=== PATIENT | female | born 1945 | race Caucasian/White ===

== ENCOUNTER 2017-03-13 15:46 | Emergency (ER) | payer MEDICARE, OTHER ==
[2017-03-13 16:00] VITALS: BP 121/51
[2017-03-13] MEDS ORDERED: TETANUS/DIPHTHERIA TOX-ADULT 0.5 ML SYR (>=7YO) IM ONE (16:14)
--- NOTE | 2017-03-13 16:14 | ER Document Report ---
ED Fall - General Mode of Arrival: Ambulatory Information source: Patient TRAVEL OUTSIDE OF THE [place] IN LAST 30 DAYS: No <CALISTA BULLOCK - Last Filed: 03/13/17 16:20> <KEIRY THOMPSON - Last Filed: 03/13/17 17:02> - General Chief Complaint: Arm Injury Stated Complaint: FALL/LEFT ARM AND LEG PAIN Notes: Patient is a 72 year old female presenting to the ED for injuries related to a fall. Patient states she was going to help her daughter who fell outside when she ran into the door frame and fell. Patient hurt her left wrist and her right forearm. Patient did not hit her head. Patient is on Coumadin and lasix. Patient has a history of COPD, CAD, CHF, and a defibrillator. (CALISTA BULLOCK) - Related data Allergies/Adverse Reactions: bee pollen [Bee Pollen] Allergy (Unknown, Verified 01/14/13 20:15) venom-wasp [Wasp Venom] Allergy (Verified 01/14/13 20:15) Past Medical History - General Information source: Patient - Social History Smoking Status: Current Every Day Smoker Family History: None Patient has suicidal ideation: No Patient has homicidal ideation: No - Past Medical History Cardiac Medical History: Reports: Hx Atrial Fibrillation, Hx Congestive Heart Failure, Hx Coronary Artery Disease, Hx Hypercholesterolemia, Hx Hypertension Pulmonary Medical History: Reports: Hx Bronchitis, Hx COPD - stage 3, Hx Pneumonia Malignancy Medical History: Reports: Hx Breast Cancer - right GI Medical History: Reports: Hx Ulcer Musculoskeltal Medical History: Reports Hx Arthritis, Reports Hx Musculoskeletal Deformity, Reports Hx Musculoskeletal Trauma Psychiatric Medical History: Reports: Hx Anxiety, Hx Depression Traumatic Medical History: Reports: Hx Fractures Past Surgical History: Reports: Hx Breast Surgery - lumpectomy, needle biopsy - Immunizations Immunizations up to date: Yes Hx Diphtheria, Pertussis, Tetanus Vaccination: Yes <CALISTA BULLOCK - Last Filed: 03/13/17 16:20> Review of Systems - Review of Systems Constitutional: No symptoms reported EENT: No symptoms reported Cardiovascular: No symptoms reported Respiratory: No symptoms reported Gastrointestinal: No symptoms reported Genitourinary: No symptoms reported Female Genitourinary: No symptoms reported Musculoskeletal: No symptoms reported Skin: See HPI Hematologic/Lymphatic: No symptoms reported Neurological/Psychological: No symptoms reported -: Yes All other systems reviewed and negative <CALISTA BULLOCK - Last Filed: 03/13/17 16:20> Physical Exam <CALISTA BULLOCK - Last Filed: 03/13/17 16:20> <KEIRY THOMPSON - Last Filed: 03/13/17 17:02> - Vital signs Vitals: Temp Pulse Resp BP Pulse Ox 98.2 F 73 16 121/51 L 96 03/13/17 15:52 03/13/17 15:52 03/13/17 15:52 03/13/17 15:52 03/13/17 15:52 - Notes Notes: GENERAL: Alert, interacts well. No acute distress. HEAD: Normocephalic, atraumatic. EYES: Pupils equal, round, and reactive to light. Extraocular movements intact. ENT: Oral mucosa moist, tongue midline. NECK: Nontender. full range of motion. Supple. Trachea midline. LUNGS: Decreased breath sounds bilaterally, no wheezes, rales, or rhonchi. No respiratory distress. HEART: Regular rate and rhythm. No murmurs, gallops, or rubs. ABDOMEN: Soft, non-tender. Non-distended. Bowel sounds present in all 4 quadrants. EXTREMITIES: Small hematoma to the right volar forearm. Patient is to palpation with ecchymosis and abrasions of the left wrist. Neuro is intact distally. NEUROLOGICAL: Alert and oriented x3. Normal speech. PSYCH: Normal affect, normal mood. SKIN: Warm, dry, normal turgor. No rashes or lesions noted. (CALISTA BULLOCK) Course <CALISTA BULLOCK - Last Filed: 03/13/17 16:20> - Diagnostic Test Radiology reviewed: Image reviewed, Reports reviewed <KEIRY THOMPSON - Last Filed: 03/13/17 17:02> - Re-evaluation Re-evalutation: 03/13/17 16:51 XRays discussed with patient as well as wound/injury care. She voices understanding. (KEIRY THOMPSON) - Vital Signs Vital signs: Temp Pulse Resp BP Pulse Ox 98.2 F 73 16 121/51 L 96 03/13/17 15:52 03/13/17 15:52 03/13/17 15:52 03/13/17 15:52 03/13/17 15:52 - Diagnostic Test Radiology results interpreted by me: 03/13/17 16:53 STS but no fracture. (KEIRY THOMPSON) Discharge <CALISTA BULLOCK - Last Filed: 03/13/17 16:20> <KEIRY THOMPSON - Last Filed: 03/13/17 17:02> - Discharge Clinical Impression: Sprain of left wrist, Abrasion of forearm Condition: Good Disposition: HOME, SELF-CARE Instructions: Wrist Sprain ([facility]) Additional Instructions: Please return for worsening or concern. Use the splint as directed. Ice and elevate areas of pain and swelling. Follow-up with your primary care physician Forms: Smoking Cessation Education Scribe Documentation - Scribe Written by Zach:: Zach Hull, 03/13/2017 16:20 acting as scribe for :: [place] <CALISTA BULLOCK - Last Filed: 03/13/17 16:20>
--- NOTE | 2017-03-13 16:51 | RADIOLOGY REPORT (SQ) ---
EXAM DESCRIPTION: WRIST LEFT 3 VIEWS COMPLETED DATE/TIME: 03/13/2017 4:43 pm REASON FOR STUDY: Trauma with pain COMPARISON: None. NUMBER OF VIEWS: Three views. TECHNIQUE: AP, lateral, and oblique radiographic images acquired of the left wrist. LIMITATIONS: None. FINDINGS: MINERALIZATION: Osteopenic BONES: No acute fracture or dislocation. No worrisome bone lesions. Normal alignment. SOFT TISSUES: Dorsal soft tissue swelling. No foreign body. OTHER: No other significant finding. IMPRESSION: Soft tissue swelling. No acute fracture TECHNICAL DOCUMENTATION: JOB ID: [id number]- All Rights Reserved
[2017-03-13] MEDS ORDERED: OXYCODONE-ACETAMINOPHEN 5-325 MG TABLET PO ONE (17:03)
== END 2017-03-13 17:34 | disposition home or self-care (01) ==
LOC: ER 15:46
DX: S63.502A Unspecified sprain of left wrist, initial encounter (principal); S50.812A Abrasion of left forearm, initial encounter; M79.602 Pain in left arm; M79.605 Pain in left leg; W19.XXXA Unspecified fall, initial encounter; F17.200 Nicotine dependence, unspecified, uncomplicated
CPT/HCPCS: 99283; 90472; 73110; 90714; L3984; 90471

== ENCOUNTER 2017-06-10 16:45 | Inpatient (IN) | payer MEDICARE, OTHER ==
--- NOTE | 2017-06-10 16:59 | ER Document Report ---
ED Respiratory Problem - General Chief Complaint: Shortness Of Breath Stated Complaint: DIFFICULTY BREATHING Time Seen by Provider: 06/10/17 16:49 Mode of Arrival: Medic Information source: Patient, Relative, Emergency Med Personnel TRAVEL OUTSIDE OF THE [place] IN LAST 30 DAYS: No - HPI Patient complains to provider of: COPD - pt with h/o COPD on home 02 (2L) who sees Dr. whitt with c/o wheezing and productive cough for the past several days. Pt. continues to smoke. She denies CP, N,V. )2 sat at time of slat pickler was 80%. She was givern nebs times 2 and solumedrol by EMS - Related Data Allergies/Adverse Reactions: bee pollen [Bee Pollen] Allergy (Unknown, Verified 01/14/13 20:15) venom-wasp [Wasp Venom] Allergy (Verified 01/14/13 20:15) Past Medical History - General Information source: Patient, Relative, Emergency Med Personnel - Social History Smoking Status: Current Every Day Smoker Cigarette use (# per day): Yes Chew tobacco use (# tins/day): No Smoking Education Provided: Yes Family History: None - Past Medical History Cardiac Medical History: Reports: Hx Atrial Fibrillation, Hx Congestive Heart Failure, Hx Coronary Artery Disease, Hx Hypercholesterolemia, Hx Hypertension Pulmonary Medical History: Reports: Hx Bronchitis, Hx COPD - stage 3, Hx Pneumonia Renal/ Medical History: Denies: Hx Peritoneal Dialysis Malignancy Medical History: Reports: Hx Breast Cancer - right GI Medical History: Reports: Hx Ulcer Musculoskeltal Medical History: Reports Hx Arthritis, Reports Hx Musculoskeletal Deformity, Reports Hx Musculoskeletal Trauma Psychiatric Medical History: Reports: Hx Anxiety, Hx Depression Traumatic Medical History: Reports: Hx Fractures Past Surgical History: Reports: Hx Breast Surgery - lumpectomy, needle biopsy - Immunizations Immunizations up to date: Yes Hx Diphtheria, Pertussis, Tetanus Vaccination: Yes Review of Systems - Review of Systems Constitutional: No symptoms reported Cardiovascular: No symptoms reported Respiratory: See HPI, Cough, Short of breath, Sputum Gastrointestinal: No symptoms reported Musculoskeletal: No symptoms reported Neurological/Psychological: No symptoms reported -: Yes All other systems reviewed and negative Physical Exam - Vital signs Vitals: Temp 98.4 F 06/10/17 16:53 - General General appearance: Appears well In distress: Mild - mild resp. distress - Respiratory Respiratory status: Respiratory distress - mild Chest status: Nontender Breath sounds: Wheezing - bilateral end-expiratory Chest palpation: Normal - Cardiovascular Rhythm: Regular Heart sounds: Normal auscultation - Abdominal Inspection: Normal Tenderness: Nontender - Extremities General upper extremity: Normal inspection General lower extremity: Normal inspection Course - Re-evaluation Re-evalutation: 06/10/17 19:10 Pt. feels better after nebs and steroids -- still with some wheezing L>R -- will call Dr. Hinojosa (on-call for Dr. Quinn) for admission - Vital Signs Vital signs: Temp Pulse Resp BP Pulse Ox 98.4 F 17 98/57 L 97 06/10/17 16:53 06/10/17 17:01 06/10/17 17:01 06/10/17 18:08 - Laboratory Result Diagrams: 06/10/17 17:17 06/10/17 17:17 Laboratory results interpreted by me: 06/10/17 06/10/17 06/10/17 17:17 17:17 17:17 RBC 3.57 L Hgb 10.7 L Hct 33.7 L MCHC 31.7 L RDW 17.6 H Plt Count 132 L Carbonic Acid 2.24 H ABG pCO2 74.4 H* ABG pO2 126.9 H ABG HCO3 41.0 H ABG Total CO2 43.3 H ABG O2 Saturation 98.3 H Sodium 135.7 L Chloride 91 L Carbon Dioxide 38 H BUN 26 H Creatinine 1.28 H Est GFR ( Amer) 50 L Est GFR (Non-Af Amer) 41 L Glucose 138 H Direct Bilirubin 0.5 H Total Protein 5.8 L Albumin 2.9 L - Diagnostic Test Radiology reviewed: Reports reviewed - bilateral pleural effusions- no infiltrate - EKG Interpretation by Me Rate: Normal Rhythm: A.Fib - at fib with non-specific st-t changes but no acute change Critical Care Note - Critical Care Note Total time excluding time spent on procedures (mins): 30 Discharge - Discharge Clinical Impression: COPD (chronic obstructive pulmonary disease) Qualifiers: COPD type: COPD with acute exacerbation Qualified Code(s): J44.1 - Chronic obstructive pulmonary disease with (acute) exacerbation Condition: Stable Disposition: ADMITTED INPATIENT Admitting Provider: Ashish Unit Admitted: [facility]
[2017-06-10] MEDS ORDERED: IPRATROPIUM/ALBUTEROL 0.5-2.5 MG/3 ML AMPUL NEB ONE (17:00)
[2017-06-10 17:33] LABS: ABSOLUTE LYMPHOCYTES (AUTO) 1.3 10^3/uL (0.5-4.7); ABSOLUTE MONOCYTES (AUTO) 0.6 10^3/uL (0.1-1.4); ABSOLUTE NEUT (AUTO) 4.4 10^3/uL (1.7-8.2); ARTERIAL BLOOD BASE EXCESS 12.7 mmol/L; ARTERIAL BLOOD O2 SATURATION 98.3 % (94-98); BASOPHILS % (AUTO) 0.6 % (0-2); EOSINOPHILS % (AUTO) 0.5 % (0-6); HEMATOCRIT 33.7 % (36.0-47.0); HEMOGLOBIN 10.7 g/dL (12.0-15.5); HGB HCT DIFFERENCE -1.6; LYMPHOCYTES % (AUTO) 20.4 % (13-45); MEAN CORPUSCULAR HEMOGLOBIN 29.9 pg (27.0-33.4); MEAN CORPUSCULAR HGB CONC 31.7 g/dL (32.0-36.0); MEAN CORPUSCULAR VOLUME 94 fl (80-97); MONOCYTES % (AUTO) 9.6 % (3-13); RED BLOOD COUNT 3.57 10^6/uL (3.72-5.28); RED CELL DISTRIBUTION WIDTH 17.6 % (11.5-14.0); SEGMENTED NEUTROPHILS % (AUTO) 68.9 % (42-78); WHITE BLOOD COUNT 6.4 10^3/uL (4.0-10.5)
[2017-06-10 17:51] LABS: ALANINE AMINOTRANSFERASE 23 U/L (9-52); ALBUMIN 2.9 g/dL (3.5-5.0); ALKALINE PHOSPHATASE 100 U/L (38-126); ASPARTATE AMINO TRANSFERASE 27 U/L (14-36); BILIRUBIN,DIRECT 0.5 mg/dL (0.0-0.4); BLOOD UREA NITROGEN 26 mg/dL (7-20); CALCIUM 8.8 mg/dL (8.4-10.2); CHLORIDE 91 mmol/L (98-107); CREATINE KINASE 40 U/L (30-135); CREATININE RESULT 1.28 mg/dL (0.52-1.25); GLUCOSE 138 mg/dL (75-110); POTASSIUM 3.7 mmol/L (3.6-5.0); SODIUM 135.7 mmol/L (137-145); TOTAL PROTEIN 5.8 g/dL (6.3-8.2)
[2017-06-10 17:58] LABS: ANION GAP 7 (5-19)
[2017-06-10 18:01] LABS: CREATINE KINASE MB 2.26 ng/mL (<4.55)
[2017-06-10 18:06] LABS: CARBON DIOXIDE 38 mmol/L (22-30)
[2017-06-10 18:07] LABS: TROPONIN I 0.061 ng/mL
--- NOTE | 2017-06-10 18:19 | RADIOLOGY REPORT (SQ) ---
EXAM DESCRIPTION: CHEST PA/LAT COMPLETED DATE/TIME: 06/10/2017 6:07 pm REASON FOR STUDY: SOB/productive cough/wheeze COMPARISON: 07/30/2016. EXAM PARAMETERS: NUMBER OF VIEWS: two views TECHNIQUE: Digital Frontal and Lateral radiographic views of the chest acquired. RADIATION DOSE: NA LIMITATIONS: none FINDINGS: LUNGS AND PLEURA: Hyperinflation with chronic scarring. Small -moderate bilateral pleural effusions. MEDIASTINUM AND HILAR STRUCTURES: No masses or contour abnormalities. HEART AND VASCULAR STRUCTURES: Cardiomegaly. BONES: No acute findings. HARDWARE: Surgical clips. OTHER: No other significant finding. IMPRESSION: COPD WITH CHRONIC SCARRING. CARDIOMEGALY PRESENT WITH BILATERAL PLEURAL EFFUSIONS, POSS IBLE SUPERIMPOSED CONGESTIVE FAILURE. TECHNICAL DOCUMENTATION: JOB ID: [id number] [employer]- All Rights Reserved
[2017-06-10] MEDS ORDERED: LEVOFLOXACIN 750 MG/D5W RTU 750 MG/150 ML RTUPB IV ONE (19:09)
[2017-06-10] MEDS ORDERED: ACETAMINOPHEN 325 MG TABLET PO PRN (19:33)
[2017-06-10] MEDS ORDERED: FUROSEMIDE INJ/PF 20 MG/2 ML SDV IV ONE (20:00)
[2017-06-10] MEDS ORDERED: IPRATROPIUM/ALBUTEROL 0.5-2.5 MG/3 ML AMPUL NEB SCH (20:00)
[2017-06-10 20:18] LABS: ARTERIAL BLOOD BASE EXCESS 11.9 mmol/L; ARTERIAL BLOOD O2 SATURATION 99.1 % (94-98)
[2017-06-10] MEDS ORDERED: METHYLPREDNISOLONE INJ 125 MG/2 ML SDV IV SCH ×2 (22:00→22:43)
--- NOTE | 2017-06-10 22:16 | PDOC CONSULTATION ---
Consultation Consult Date: 06/10/17 Attending physician:: THERESE MCKEON Consult reason:: CHF History of Present Illness Admission Date/PCP: 06/10/17 19:33 Patient complains of: Shortness of breath and unresponsive state. History of Present Illness: JUNAID VILCHIS is a 72 year old female with h/o COPD on home 02 (2L) who sees Dr. whitt with c/o wheezing and productive cough for the past several days. Pt. continues to smoke. She denies CP, N,V. O2 sat at time of tile picker was 80%. She was givern nebs times 2 and solumedrol by EMS history further obtained by talking with patient's sister and and daughter. It seems patient was very lethargic and was difficult to wake up at home. Subsequent blood gases showed marked hypoxemia and also hypercarbia. Currently patient on 100% oxygen. Patient does have cough with some productive sputum. She however denied any fever or chills at this time. Patient was noted to have elevated BNP. Patient does give history of peripheral vascular disease with bilateral carotid endarterectomy. Patient denied any prior history of myocardial infarction or angina. Patient also describes some intermittent left arm weakness. Past Medical History Cardiac Medical History: Reports: Atrial Fibrillation, Congestive Heart Failure , Coronary Artery Disease, Hyperlipidema, Hypertension Pulmonary Medical History: Reports: Bronchitis, Chronic Obstructive Pulmonary Disease (COPD) - stage 3, Pneumonia Malignancy Medical History: Reports: Breast Cancer - right Musculoskeltal Medical History: Reports: Arthritis Psychiatric Medical History: Reports: Depression Social History Information Source: Patient Smoking Status: Current Every Day Smoker - Advance Directive Resuscitation Status: Full Code Surrogate healthcare decision maker:: Patient sister is currently the surrogate decision-maker Family History Family History: COPD, Hypertension Parental Family History Reviewed: Yes Children Family History Reviewed: Yes Sibling(s) Family History Reviewed.: Yes Medication/Allergy Home Medications: Aspirin [Aspirin 81 mg Chewable Tablet] 81 mg PO DAILY 01/14/13 Calcium/Magnesium/Vit D3 [Calcium 500 mg Tablet] 01/14/13 Esomeprazole Magnesium [Nexium] 40 mg PO 01/14/13 Midodrine HCl [Proamatine 5 mg Tablet] 01/14/13 Simvastatin [Zocor 40 mg Tablet] 40 mg PO 01/14/13 Tiotropium [place] [Spiriva Handihaler 18 mcg/dose (30 Dose)] 01/14/13 Warfarin Sodium [Coumadin 5 Mg Tablet] 5 mg PO 01/14/13 Cephalexin Monohydrate [Keflex 500 mg Capsule] 500 mg PO QID #40 capsule Potassium Chloride [Klor-Con 10 Meq Tablet.sa] 20 meq PO BID 3 Days tablet.sa 07/30/16 Prednisone [Deltasone 10 mg Tablet] 10 mg PO ASDIR PRN #21 tablet 07/30/16 Allergies/Adverse Reactions: bee pollen [Bee Pollen] Allergy (Unknown, Verified 01/14/13 20:15) venom-wasp [Wasp Venom] Allergy (Verified 01/14/13 20:15) Review of Systems Review of Systems: Please see history of present illness and past medical history as wall. Constitutional: No fever or chills reported. Head : No recent chronic headaches, recent head injury. Eyes: No recent eye pain, diplopia, redness, discharge, acute visual changes. Ears: No recent chronic ear pain, acute hearing loss, ear discharge. Oral cavity: No recent ulcerations, bleeding, oral cavity discomfort. Neck: No recent acute neck pain reported. Hematologic: No recent easy bruising or bleeding or hematologic malignancy reported. Lymphatic: No recent lymphatic malignancy, chronic lymphadenopathy reported yet Cardiovascular system review: See history of present illness. Intermittent pedal edema noted. Respiratory system review: Recent cough with sputum production but no hemoptysis , blood clots in the lungs reported. Moderate shortness of breath on exertion Gastrointestinal system review: Negative for any recent acute or chronic abdominal pain, hematemesis, melena, recent change in bowel habits. Genitourinary system review: No recent acute or chronic hematuria, flank pain, UTI etc. reported. Skin system review: Negative for any recent abnormal bruising, no rash, no pruritus reported. Neurologic: History of mini strokes and minor strokes but no definite seizure disorder. Recent symptoms indicative of TIA. Psychologic: No history of major psychosis or major depression reported. Musculoskeletal: Minor aches and pains reported. No acute joint swelling reported. Endocrine: No recent polyuria, polydipsia, recent heat or cold intolerance. Physical Exam Vital Signs: Temp Pulse Resp BP Pulse Ox 98.4 F 16 145/93 H 99 06/10/17 16:53 06/10/17 21:01 06/10/17 21:01 06/10/17 21:01 Exam: GENERAL: well-nourished and in no acute distress. Alert and oriented x3. Currently receiving nonrebreather mask oxygen. HEAD: Atraumatic, normocephalic. EYES: Pupils equal round and reactive to light, extraocular movements intact, sclera anicteric, conjunctiva are normal. ENT: TMs normal, nares patent, oropharynx clear without exudates. Moist mucous membranes. No oral ulcerations or bleeding gums noted NECK: supple without lymphadenopathy. Trachea is central. No cervical or axillary lymphadenopathy noted. Carotids are 2+, JVD 12 cm LUNGS: Respiration seems nonlabored, no significant accessory muscle action noted. Bilateral mild wheezing and bibasilar fine crackles are noted. CHEST: Palpation of the chest wall shows no significant chest wall tenderness. No other significant abnormalities noted. HEART: [place] [employer]CEIVING [employer], No PSH, 1/6 [place] aortic area, 1/6 barr[place] systolic murmur mitral area, no rubs, no gallops. ABDOMEN: Soft, no significant tenderness appreciated, normoactive bowel sounds. No guarding, no rebound. No rigidity noted . No masses appreciated. EXTREMITIES: Pedal pulses are 1-2+, no calf tenderness noted. No clubbing or cyanosis.1+ pedal edema noted NEUROLOGICAL: Focused neurological exam showed no significant neurologic deficit. Normal speech, no focal weakness appreciated. PSYCH: Normal mood, normal affect. Judgment and insight within normal limits. SKIN: No significant ecchymosis, rash, ulcerations or signs of pruritus noted. MUSCULOSKELETAL EXAM: No significant joint swelling noted. Results Laboratory Results: 06/10/17 20:03 Carbonic Acid 1.86 H HCO3/H2CO3 Ratio 20:1 ABG pH 7.42 ABG pCO2 61.7 H ABG pO2 165.3 H ABG HCO3 38.8 H ABG O2 Saturation 99.1 H ABG Base Excess 11.9 FiO2 50% EKG Comments: Atrial fibrillation with controlled ventricular response and minor nonspecific T -wave changes Impressions: Chest X-Ray 06/10/17 16:59 IMPRESSION: COPD WITH CHRONIC SCARRING. CARDIOMEGALY PRESENT WITH BILATERAL PLEURAL EFFUSIONS, POSSIBLE SUPERIMPOSED CONGESTIVE FAILURE. Assessment & Plan - Diagnosis (1) Acute and chronic respiratory failure ([id number]) Is this a current diagnosis for this admission?: Yes (2) COPD with exacerbation Is this a current diagnosis for this admission?: Yes (3) Congestive heart failure (CHF) Qualifiers: Congestive heart failure type: unspecified congestive heart failure type Congestive heart failure chronicity: acute on chronic Qualified Code(s): I50.9 - Heart failure, unspecified Is this a current diagnosis for this admission?: Yes (4) Tobacco abuse Is this a current diagnosis for this admission?: Yes (5) Chronic kidney disease Qualifiers: Chronic kidney disease stage: stage 3 (moderate) Qualified Code(s): N18.3 - Chronic kidney disease, stage 3 (moderate) Is this a current diagnosis for this admission?: Yes (6) Elevated troponin I level Is this a current diagnosis for this admission?: Yes (7) Atrial fibrillation Qualifiers: Atrial fibrillation type: chronic Qualified Code(s): I48.2 - Chronic atrial fibrillation Is this a current diagnosis for this admission?: Yes (8) CO2 narcosis Is this a current diagnosis for this admission?: Yes Plan: This was probably because of patient decreased responsiveness. Currently improved. - Notes Notes: Acute on chronic respiratory failure: Patient noted to have severe COPD and both hypoxemic and hypercarbic respiratory failure. Agree with oxygen supplementation. Patient may need noninvasive ventilatory support. Patient informed that it may progress that she might need artificial ventilation. Endotracheal intubation and artificial ventilation. If that happens she is agreeable to proceed with that. COPD with exacerbation: I saw your patient might I think she is in acute respiratory failure both hypoxic and hypercarbic. Patient has been advised to quit smoking. Continue with the steroids and bronchodilator therapy. Congestive heart failure: Possibly diastolic and right heart failure combined. Agree with IV Lasix. Adequate therapy of COPD would help. Chronic kidney disease: Patient seems to have stage III chronic kidney disease. Continue to monitor renal functions. Atrial fibrillation: Patient claims she was on Coumadin. Check PT with INR. PT with INR less than 2.0, could switch patient to Eliquis at 2.5 mg p.o. twice daily. Abnormal troponin I: Most likely related to respiratory distress and CHF. CO2 narcosis: This was noted on presentation. Currently improved. - Time Time Spent: 50 to 70 Minutes - CODE STATUS was discussed, patient remains full code. Surrogate decision-maker unchanged. Multiple medical problems were addressed. More than 50% of the time spent coordinating care, discussing management plans with involved caregivers. Management plans discussed with involved personnels. Medical decision making was of moderate to high complexity , patient's has multiple comorbidities. Medications reviewed and adjusted accordingly: Yes
[2017-06-10 22:32] LABS: CHOLESTEROL 71.64 mg/dL (0-200); Direct HDL 28 mg/dL (>40); TRIGLYCERIDES 56 mg/dL (<150)
[2017-06-10 22:33] LABS: PROTHROMBIN TIME 39.7 SEC (11.4-15.4)
[2017-06-10 22:34] LABS: PARTIAL THROMBOPLASTIN TIME 52.2 SEC (23.5-35.8)
--- NOTE | 2017-06-10 22:40 | RADIOLOGY REPORT (SQ) ---
EXAM DESCRIPTION: CTA CHEST COMPLETED DATE/TIME: 06/10/2017 10:17 pm REASON FOR STUDY: CP/SOB COMPARISON: None. TECHNIQUE: CT scan of the chest performed using helical scanning technique with dynamic intravenous contrast injection. Images reviewed with lung, soft tissue and bone windows. Reconstructed coronal and sagittal MPR images reviewed. Additional 3 dimensional post-processing performed to develop Maximal Intensity Projection images (CT P). All images stored on PACS. All CT scanners at this facility use dose modulation, iterative reconstruction, and/or weight based d osing when appropriate to reduce radiation dose to as low as reasonably achievable (ALARA). [facility]: Dose Right [facility]: CareDose [facility]: Dose Right [facility]: Teradose 4D [facility]: [employer] CONTRAST TYPE AND DOSE: contrast/concentration: Isovue 370.00 mg/ml; Total Contrast Delivered: 63.0 ml; Total Saline Delivered: 104.0 ml Contrast bolus optimized for the pulmonary arteries. Not diagnostic for the aorta. RENAL FUNCTION: BUN 26 creatinine 1.28. RADIATION DOSE: Up-to-date CT equipment and radiation dose reduction techniques were employed. CTDIv ol: 14.3 - 16.5 mGy. DLP: 467 mGy-cm. . LIMITATIONS: None. FINDINGS: LUNGS AND PLEURA: Chronic interstitial scarring. Moderate left pleural effusion and small right pleural effusion. AORTA AND GREAT VESSELS: No aneurysm. Contrast bolus not optimized for the aorta. HEART: No pericardial effusion. No significant coronary artery calcifications. PULMONARY ARTERIES: No emboli visualized in the main pulmonary arteries or the segmental branches. HILAR AND MEDIASTINAL STRUCTURES: No identified masses or abnormal nodes. HARDWARE: None in the chest. UPPER ABDOMEN: No significant findings. Limited exam. THYROID AND OTHER SOFT TISSUES: No masses. No adenopathy. BONES: No acute or significant finding. 3D MIPS: Confirm above findings. OTHER: No other significant finding. IMPRESSION: NORMAL CTA OF THE CHEST. NO PULMONARY EMBOLI. CHRONIC INTERSTITIAL SCARRING. MODERATE LEFT PLEURAL EFFUSION AND SMALL RIGHT PLEURAL EFFUSION. COMMENT: Quality ID # [id number]: Final reports with documentation of one or more dose reduction techniques (e.g., Automated exposure control, adjustment of the mA and/or kV according to patient size, use of iterative reconstruction technique) TECHNICAL DOCUMENTATION: JOB ID: [id number]- All Rights Reserved
[2017-06-10 22:43] LABS: DIRECT LDL 37 mg/dL (<100)
[2017-06-10] MEDS ORDERED: LEVALBUTEROL HCL NEB 1.25 MG/3 ML AMPUL NEB ONE (23:15)
--- NOTE | 2017-06-10 23:23 | EKG REPORT ---
SEVERITY:- ABNORMAL ECG - ATRIAL FIBRILLATION PROBABLE ANTEROSEPTAL INFARCT, OLD LATERAL LEADS ARE ALSO INVOLVED : Confirmed by: Farnaz Aceves 10-Jun-2017 23:22:02
--- NOTE | 2017-06-10 23:24 | EKG REPORT ---
SEVERITY:- ABNORMAL ECG - ATRIAL FIBRILLATION PROBABLE ANTEROSEPTAL INFARCT, OLD BORDERLINE T ABNORMALITIES, DIFFUSE LEADS LATERAL LEADS ARE ALSO INVOLVED : Confirmed by: Farnaz Aceves 10-Jun-2017 23:22:19
[2017-06-10 23:26] LABS: CREATINE KINASE MB 3.56 ng/mL (<4.55)
[2017-06-10 23:33] LABS: TROPONIN I 0.382 ng/mL
[2017-06-10] MEDS: LEVALBUTEROL HCL NEB 1.25 MG/3 ML AMPUL NEB SCH (23:44)
[2017-06-11] MEDS ORDERED: ACETAMINOPHEN 325 MG TABLET ONE (00:28)
[2017-06-11] MEDS: LEVALBUTEROL HCL NEB 1.25 MG/3 ML AMPUL NEB SCH ×6 (04:44→23:50)
[2017-06-11 07:06] LABS: PROTHROMBIN TIME 33.6 SEC (11.4-15.4)
[2017-06-11 07:24] LABS: ABSOLUTE LYMPHOCYTES (AUTO) 0.5 10^3/uL (0.5-4.7); ABSOLUTE MONOCYTES (AUTO) 0.1 10^3/uL (0.1-1.4); ABSOLUTE NEUT (AUTO) 4.7 10^3/uL (1.7-8.2); BASOPHILS % (AUTO) 0.3 % (0-2); HEMATOCRIT 35.5 % (36.0-47.0); HEMOGLOBIN 11.4 g/dL (12.0-15.5); HGB HCT DIFFERENCE -1.3; LYMPHOCYTES % (AUTO) 8.8 % (13-45); MEAN CORPUSCULAR HEMOGLOBIN 30.2 pg (27.0-33.4); MEAN CORPUSCULAR HGB CONC 32.1 g/dL (32.0-36.0); MEAN CORPUSCULAR VOLUME 94 fl (80-97); MONOCYTES % (AUTO) 2.1 % (3-13); RED BLOOD COUNT 3.77 10^6/uL (3.72-5.28); RED CELL DISTRIBUTION WIDTH 17.9 % (11.5-14.0); SEGMENTED NEUTROPHILS % (AUTO) 88.8 % (42-78); WHITE BLOOD COUNT 5.3 10^3/uL (4.0-10.5)
[2017-06-11 07:36] LABS: CREATINE KINASE MB 3.1 ng/mL (<4.55); TROPONIN I 0.312 ng/mL
[2017-06-11 07:43] LABS: ANION GAP 7 (5-19); BLOOD UREA NITROGEN 24 mg/dL (7-20); CALCIUM 8.9 mg/dL (8.4-10.2); CARBON DIOXIDE 39 mmol/L (22-30); CHLORIDE 91 mmol/L (98-107); CREATININE RESULT 1.01 mg/dL (0.52-1.25); GLUCOSE 152 mg/dL (75-110); POTASSIUM 3.9 mmol/L (3.6-5.0); SODIUM 136.5 mmol/L (137-145)
[2017-06-11 08:23] LABS: ARTERIAL BLOOD BASE EXCESS 14.3 mmol/L; ARTERIAL BLOOD O2 SATURATION 98.2 % (94-98)
[2017-06-11] MEDS ORDERED: ENOXAPARIN SODIUM INJ 40 MG/0.4 ML DISP.SYRIN SUBCUT SCH (10:00)
[2017-06-11] MEDS ORDERED: DOCUSATE SODIUM 100 MG CAPSULE PO SCH (10:00)
--- NOTE | 2017-06-11 10:07 | PDOC PROGRESS REPORT ---
Subjective Progress Note for:: 06/11/17 Subjective:: Patient seems to be doing better with gradual improvement. Pt is denying any chest arm or neck discomfort. Patient denying any PND, orthopnea. Patient denied any sustained palpitations, dizziness, syncope, near syncope. Patient denying any fever chills. Patient denying any other significant discomfort. Patient is much improved since admission. Patient is maintaining chronic atrial fibrillation. Review of systems: Rest review of systems negative. Medications: Medications have been reviewed. Physical Exam Vital Signs: Temp Pulse Resp BP Pulse Ox 98.8 F 107 H 24 H 125/71 100 06/11/17 07:52 06/11/17 08:29 06/11/17 08:12 06/11/17 07:52 06/11/17 08:12 Intake & Output 06/10/17 06/11/17 06/12/17 06:59 06:59 06:59 Intake Total 60 Output Total 400 50 Balance -340 -50 Weight 47.2 kg Exam: GENERAL: well-nourished and in no acute distress. Alert and oriented x3 HEAD: Atraumatic, normocephalic. EYES: Pupils equal round and reactive to light, extraocular movements intact, sclera anicteric, conjunctiva are normal. ENT: TMs normal, nares patent, oropharynx clear without exudates. Moist mucous membranes. No oral ulcerations or bleeding gums noted NECK: supple without lymphadenopathy. Trachea is central. No cervical or axillary lymphadenopathy noted. Carotids are 2+, JVD 8-10 cm LUNGS: Respiration seems nonlabored, no significant accessory muscle action noted. Bibasilar mild wheezing and crackles noted. Bibasilar dullness noted. CHEST: Palpation of the chest wall shows no significant chest wall tenderness. No other significant abnormalities noted. HEART: [place] [employer], No PSH, 1/6 AB[place] aortic area, 1/6 barragan systolic murmur mitral area, no rubs, no gallops. ABDOMEN: Soft, no significant tenderness appreciated, normoactive bowel sounds. No guarding, no rebound. No rigidity noted . No masses appreciated. EXTREMITIES: Pedal pulses are 1-2+, no calf tenderness noted. No clubbing or cyanosis. 1+ pedal edema noted NEUROLOGICAL: Focused neurological exam showed no significant neurologic deficit. Normal speech, no focal weakness appreciated. PSYCH: Normal mood, normal affect. Judgment and insight within normal limits. SKIN: No significant ecchymosis, rash, ulcerations or signs of pruritus noted. MUSCULOSKELETAL EXAM: No significant joint swelling noted. Results Laboratory Results: 06/11/17 07:14 06/11/17 07:14 06/10/17 06/11/17 06/11/17 20:03 07:14 07:14 WBC 5.3 RBC 3.77 Hgb 11.4 L Hct 35.5 L MCV 94 MCH 30.2 MCHC 32.1 RDW 17.9 H Plt Count 122 L Seg Neutrophils % 88.8 H Lymphocytes % 8.8 L Monocytes % 2.1 L Eosinophils % 0.0 Basophils % 0.3 Absolute Neutrophils 4.7 Absolute Lymphocytes 0.5 Absolute Monocytes 0.1 Absolute Eosinophils 0.0 Absolute Basophils 0.0 Carbonic Acid 1.86 H HCO3/H2CO3 Ratio 20:1 ABG pH 7.42 ABG pCO2 61.7 H ABG pO2 165.3 H ABG HCO3 38.8 H ABG O2 Saturation 99.1 H ABG Base Excess 11.9 FiO2 50% Sodium 136.5 L Potassium 3.9 Chloride 91 L Carbon Dioxide 39 H Anion Gap 7 BUN 24 H Creatinine 1.01 Est GFR ( Amer) > 60 Est GFR (Non-Af Amer) 54 L Glucose 152 H Calcium 8.9 06/11/17 08:10 WBC RBC Hgb Hct MCV MCH MCHC RDW Plt Count Seg Neutrophils % Lymphocytes % Monocytes % Eosinophils % Basophils % Absolute Neutrophils Absolute Lymphocytes Absolute Monocytes Absolute Eosinophils Absolute Basophils Carbonic Acid 1.75 H HCO3/H2CO3 Ratio 23:1 ABG pH 7.46 H ABG pCO2 58.0 H ABG pO2 113.5 H ABG HCO3 40.5 H ABG O2 Saturation 98.2 H ABG Base Excess 14.3 FiO2 40% Sodium Potassium Chloride Carbon Dioxide Anion Gap BUN Creatinine Est GFR ( Amer) Est GFR (Non-Af Amer) Glucose Calcium 06/10/17 06/10/17 06/11/17 22:55 22:55 06:53 Creatine Kinase 42 41 CK-MB (CK-2) 3.56 Troponin I 0.382 06/11/17 06:53 Creatine Kinase CK-MB (CK-2) 3.10 Troponin I 0.312 Impressions: Chest X-Ray 06/10/17 16:59 IMPRESSION: COPD WITH CHRONIC SCARRING. CARDIOMEGALY PRESENT WITH BILATERAL PLEURAL EFFUSIONS, POSSIBLE SUPERIMPOSED CONGESTIVE FAILURE. Chest/Abdomen CTA 06/10/17 19:09 IMPRESSION: NORMAL CTA OF THE CHEST. NO PULMONARY EMBOLI. CHRONIC INTERSTITIAL SCARRING. MODERATE LEFT PLEURAL EFFUSION AND SMALL RIGHT PLEURAL EFFUSION. Assessment & Plan - Diagnosis (1) Acute and chronic respiratory failure ([id number]) Qualifiers: Qualified Code(s): J96.21 - Acute and chronic respiratory failure with hypoxia Is this a current diagnosis for this admission?: Yes (2) COPD with exacerbation Is this a current diagnosis for this admission?: Yes (3) Congestive heart failure (CHF) Qualifiers: Qualified Code(s): I50.9 - Heart failure, unspecified Is this a current diagnosis for this admission?: Yes (4) Tobacco abuse Is this a current diagnosis for this admission?: Yes (5) Chronic kidney disease Qualifiers: Qualified Code(s): N18.3 - Chronic kidney disease, stage 3 (moderate) Is this a current diagnosis for this admission?: Yes (6) Elevated troponin I level Is this a current diagnosis for this admission?: Yes (7) Atrial fibrillation Qualifiers: Qualified Code(s): I48.2 - Chronic atrial fibrillation Is this a current diagnosis for this admission?: Yes (8) CO2 narcosis Is this a current diagnosis for this admission?: Yes - Notes Notes: Acute on chronic respiratory failure: Patient noted to have severe COPD and both hypoxemic and hypercarbic respiratory failure. Agree with oxygen supplementation. Patient may need noninvasive ventilatory support. Currently is stable on supplemental oxygen. Arterial blood gases still show some CO2 retention and hypoxemia with increased AA gradient needing oxygen support. COPD with exacerbation: I saw your patient might I think she is in acute respiratory failure both hypoxic and hypercarbic. Patient has been advised to quit smoking. Continue with the steroids and bronchodilator therapy. Congestive heart failure: Possibly diastolic and right heart failure combined. Agree with IV Lasix. Adequate therapy of COPD would help. A stat 2D echo has been ordered in view of also positive troponin I. Chronic kidney disease: Patient seems to have stage III chronic kidney disease. Continue to monitor renal functions. Atrial fibrillation: Patient claims she was on Coumadin. PT with INR in therapeutic range.. Abnormal troponin I: Most likely related to respiratory distress and CHF. Troponin I peaked at 0.38. At this point and ischemia workup is not planned but could be considered prior to discharge or as an outpatient once patient respiratory status improves and CHF is resolved. CO2 narcosis: This was noted on presentation. Currently improved. - Time Time with patient: Greater than 35 minutes - CODE STATUS was discussed, patient remains full code. Surrogate decision-maker unchanged. Multiple medical problems were addressed. More than 50% of the time spent coordinating care, discussing management plans with involved caregivers. Management plans discussed with involved personnels. Medical decision making was of moderate to high complexity, patient's has multiple comorbidities. Medications reviewed and adjusted accordingly: Yes
--- NOTE | 2017-06-11 10:08 | PDOC CONSULTATION ---
Consultation Consult Date: 06/11/17 Attending physician:: THERESE MCKEON Consult reason:: acute/chronic respiratory failure History of Present Illness Admission Date/PCP: 06/10/17 19:33 History of Present Illness: JUNAID VILCHIS is a 72 year old female with h/o COPD on home 02 (2L) with c/o wheezing and productive cough for the past several days. Pt. continues to smoke. She denies CP, N,V.F,C sore throat or rhinorrhea. Presenting O2 sat was 80%. She was given nebs times 2 and solumedrol by EMS history .It seems patient was very lethargic and was difficult to wake up at home. Currently patient on BIPAP. Patient does have cough with some productive yellow-green sputum. Past Medical History Cardiac Medical History: Reports: Atrial Fibrillation, Congestive Heart Failure , Coronary Artery Disease, Hyperlipidema, Hypertension Pulmonary Medical History: Reports: Bronchitis, Chronic Obstructive Pulmonary Disease (COPD) - stage 3, Pneumonia Malignancy Medical History: Reports: Breast Cancer - right Musculoskeltal Medical History: Reports: Arthritis Psychiatric Medical History: Reports: Depression Social History Information Source: [facility] Records Smoking Status: Current Every Day Smoker Cigarettes Packs Per Day: 1.5 Number of Years Smokin Last Time Smoked: 06/10/17 Passive smoke exposure as: Both Frequency of Alcohol Use: None Hx Recreational Drug Use: No Hx Prescription Drug Abuse: No Do you have pets?: No Have you had any respiratory illnesses as a child?: No Have you been exposed to any sick contacts recently?: No Have you had any recent respiratory illnesses?: Yes Have you travelled outside of [place] in the past 12 months?: No - Advance Directive Resuscitation Status: Full Code Family History Family History: Reviewed & Not Pertinent, COPD, Hypertension Parental Family History Reviewed: No Children Family History Reviewed: No Sibling(s) Family History Reviewed.: No Medication/Allergy Allergies/Adverse Reactions: bee pollen [Bee Pollen] Allergy (Unknown, Verified 01/14/13 20:15) venom-wasp [Wasp Venom] Allergy (Verified 01/14/13 20:15) Review of Systems All systems: reviewed and no additional remarkable complaints except as stated Physical Exam Vital Signs: Temp Pulse Resp BP Pulse Ox 98.8 F 107 H 24 H 125/71 100 06/11/17 07:52 06/11/17 08:29 06/11/17 08:12 06/11/17 07:52 06/11/17 08:12 Intake & Output 06/10/17 06/11/17 06/12/17 06:59 06:59 06:59 Intake Total 60 Output Total 400 50 Balance -340 -50 Weight 47.2 kg General appearance: PRESENT: disheveled, mild distress, thin, well-developed Head exam: PRESENT: atraumatic, normocephalic Eye exam: PRESENT: conjunctiva pale, EOMI Mouth exam: PRESENT: dry mucosa, neck supple, tongue midline Neck exam: ABSENT: carotid bruit, JVD, lymphadenopathy, thyromegaly Respiratory exam: PRESENT: decreased breath sounds, prolonged expiratory phas, rhonchi, symmetrical, unlabored, wheezes Cardiovascular exam: PRESENT: RRR, +S1, +S2 Pulses: PRESENT: normal radial pulses GI/Abdominal exam: PRESENT: normal bowel sounds, soft. ABSENT: distended, guarding, mass, organolmegaly, rebound, tenderness Rectal exam: PRESENT: deferred Gentrourinary exam: PRESENT: indwelling catheter Musculoskeletal exam: PRESENT: normal inspection Neurological exam: PRESENT: alert, awake Psychiatric exam: PRESENT: normal mood Skin exam: PRESENT: dry, warm Results Laboratory Results: 06/11/17 07:14 06/11/17 07:14 06/10/17 06/11/17 06/11/17 20:03 07:14 07:14 WBC 5.3 RBC 3.77 Hgb 11.4 L Hct 35.5 L MCV 94 MCH 30.2 MCHC 32.1 RDW 17.9 H Plt Count 122 L Seg Neutrophils % 88.8 H Lymphocytes % 8.8 L Monocytes % 2.1 L Eosinophils % 0.0 Basophils % 0.3 Absolute Neutrophils 4.7 Absolute Lymphocytes 0.5 Absolute Monocytes 0.1 Absolute Eosinophils 0.0 Absolute Basophils 0.0 Carbonic Acid 1.86 H HCO3/H2CO3 Ratio 20:1 ABG pH 7.42 ABG pCO2 61.7 H ABG pO2 165.3 H ABG HCO3 38.8 H ABG O2 Saturation 99.1 H ABG Base Excess 11.9 FiO2 50% Sodium 136.5 L Potassium 3.9 Chloride 91 L Carbon Dioxide 39 H Anion Gap 7 BUN 24 H Creatinine 1.01 Est GFR ( Amer) > 60 Est GFR (Non-Af Amer) 54 L Glucose 152 H Calcium 8.9 06/11/17 08:10 WBC RBC Hgb Hct MCV MCH MCHC RDW Plt Count Seg Neutrophils % Lymphocytes % Monocytes % Eosinophils % Basophils % Absolute Neutrophils Absolute Lymphocytes Absolute Monocytes Absolute Eosinophils Absolute Basophils Carbonic Acid 1.75 H HCO3/H2CO3 Ratio 23:1 ABG pH 7.46 H ABG pCO2 58.0 H ABG pO2 113.5 H ABG HCO3 40.5 H ABG O2 Saturation 98.2 H ABG Base Excess 14.3 FiO2 40% Sodium Potassium Chloride Carbon Dioxide Anion Gap BUN Creatinine Est GFR ( Amer) Est GFR (Non-Af Amer) Glucose Calcium 06/10/17 06/10/17 06/11/17 22:55 22:55 06:53 Creatine Kinase 42 41 CK-MB (CK-2) 3.56 Troponin I 0.382 06/11/17 06:53 Creatine Kinase CK-MB (CK-2) 3.10 Troponin I 0.312 Impressions: Chest X-Ray 06/10/17 16:59 IMPRESSION: COPD WITH CHRONIC SCARRING. CARDIOMEGALY PRESENT WITH BILATERAL PLEURAL EFFUSIONS, POSSIBLE SUPERIMPOSED CONGESTIVE FAILURE. Chest/Abdomen CTA 06/10/17 19:09 IMPRESSION: NORMAL CTA OF THE CHEST. NO PULMONARY EMBOLI. CHRONIC INTERSTITIAL SCARRING. MODERATE LEFT PLEURAL EFFUSION AND SMALL RIGHT PLEURAL EFFUSION. Assessment & Plan - Diagnosis (1) Acute and chronic respiratory failure ([id number]) Qualifiers: Respiratory failure complication: hypoxia and hypercapnia Qualified Code(s) : J96.21 - Acute and chronic respiratory failure with hypoxia; J96.22 - Acute and chronic respiratory failure with hypercapnia Is this a current diagnosis for this admission?: Yes Plan: continue bipap (2) Atrial fibrillation Qualifiers: Atrial fibrillation type: chronic Qualified Code(s): I48.2 - Chronic atrial fibrillation Is this a current diagnosis for this admission?: Yes (3) COPD with exacerbation Is this a current diagnosis for this admission?: Yes Plan: consider adding long acting muscarinic agent (4) Pleural effusion Is this a current diagnosis for this admission?: Yes Plan: bilateral questionably due to chf (5) Interstitial lung disease Is this a current diagnosis for this admission?: Yes Plan: CT honeycombing (6) Congestive heart failure (CHF) Qualifiers: Congestive heart failure type: unspecified congestive heart failure type Congestive heart failure chronicity: acute on chronic Qualified Code(s): I50.9 - Heart failure, unspecified Is this a current diagnosis for this admission?: Yes (7) Tobacco abuse Is this a current diagnosis for this admission?: Yes Plan: stop smoking - Time Critical Time spent with patient: 35 or more minutes - 55 min
[2017-06-11] MEDS: FUROSEMIDE INJ/PF 20 MG/2 ML SDV IV SCH (10:33)
--- NOTE | 2017-06-11 10:34 | PDOC H&P ---
History of Present Illness Admission Date/PCP: 06/10/17 19:33 Patient complains of: sob History of Present Illness: JUNAID VILCHIS is a 72 year old female with h/o COPD on home 02 (2L) who sees Dr. whitt with c/o wheezing and productive cough for the past several days. Pt. continues to smoke. She denies CP, N,V. 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 She was givern nebs times 2 and solumedrol by EMS history further obtained by talking with patient's sister and and daughter. It seems patient was very lethargic and was difficult to wake up at home. Subsequent blood gases showed marked hypoxemia and also hypercarbia. Currently patient on 100% oxygen. Patient does have cough with some productive sputum. She however denied any fever or chills at this time. Patient was noted to have elevated BNP. Patient does give history of peripheral vascular disease with bilateral carotid endarterectomy. Patient denied any prior history of myocardial infarction or angina. Patient also describes some intermittent left arm weakness. Past Medical History Cardiac Medical History: Reports: Atrial Fibrillation, Congestive Heart Failure , Coronary Artery Disease, Hyperlipidema, Hypertension Pulmonary Medical History: Reports: Bronchitis, Chronic Obstructive Pulmonary Disease (COPD) - stage 3, Pneumonia Malignancy Medical History: Reports: Breast Cancer - right Musculoskeltal Medical History: Reports: Arthritis Psychiatric Medical History: Reports: Depression Social History Smoking Status: Current Every Day Smoker Frequency of Alcohol Use: Occasional Hx Recreational Drug Use: No - Advance Directive Resuscitation Status: Full Code Family History Family History: Reviewed & Not Pertinent, COPD, Hypertension Parental Family History Reviewed: Yes Children Family History Reviewed: Yes Sibling(s) Family History Reviewed.: Yes Medication/Allergy Allergies/Adverse Reactions: bee pollen [Bee Pollen] Allergy (Unknown, Verified 01/14/13 20:15) venom-wasp [Wasp Venom] Allergy (Verified 01/14/13 20:15) Review of Systems Constitutional: ABSENT: chills, fever(s), headache(s), weight gain, weight loss Eyes: ABSENT: visual disturbances Ears: ABSENT: hearing changes Cardiovascular: PRESENT: dyspnea on exertion. ABSENT: chest pain, edema, orthropnea, palpitations Respiratory: PRESENT: cough, dyspnea. ABSENT: hemoptysis Gastrointestinal: ABSENT: abdominal pain, constipation, diarrhea, hematemesis, hematochezia, nausea, vomiting Genitourinary: ABSENT: dysuria, hematuria Musculoskeletal: ABSENT: joint swelling Integumentary: ABSENT: rash, wounds Neurological: ABSENT: abnormal gait, abnormal speech, confusion, dizziness, focal weakness, syncope Psychiatric: ABSENT: anxiety, depression, homidical ideation, suicidal ideation Endocrine: ABSENT: cold intolerance, heat intolerance, menstrual abnormalities, polydipsia, polyuria Hematologic/Lymphatic: ABSENT: easy bleeding, easy bruising, lymphadenopathy Physical Exam Vital Signs: Temp Pulse Resp BP Pulse Ox 98.4 F 16 145/93 H 99 06/10/17 16:53 06/10/17 21:01 06/10/17 21:01 06/10/17 21:01 General appearance: PRESENT: mild distress Head exam: PRESENT: atraumatic, normocephalic Eye exam: PRESENT: conjunctiva pink, EOMI, PERRLA. ABSENT: scleral icterus Ear exam: PRESENT: normal external ear exam Mouth exam: PRESENT: moist, tongue midline Neck exam: PRESENT: full ROM. ABSENT: carotid bruit, JVD, lymphadenopathy, thyromegaly Respiratory exam: PRESENT: decreased breath sounds, wheezes Cardiovascular exam: PRESENT: RRR. ABSENT: diastolic murmur, rubs, systolic murmur Pulses: PRESENT: normal dorsalis pedis pul, +2 pedal pulses bilateral Vascular exam: PRESENT: normal capillary refill GI/Abdominal exam: PRESENT: normal bowel sounds, soft. ABSENT: distended, guarding, mass, organolmegaly, rebound, tenderness Rectal exam: PRESENT: deferred Neurological exam: PRESENT: alert, awake, oriented to person, oriented to place , oriented to time, oriented to situation, CN II-XII grossly intact. ABSENT: motor sensory deficit Psychiatric exam: PRESENT: appropriate affect, normal mood. ABSENT: homicidal ideation, suicidal ideation Skin exam: PRESENT: dry, intact, warm. ABSENT: cyanosis, rash Results Laboratory Results: 06/10/17 20:03 Carbonic Acid 1.86 H HCO3/H2CO3 Ratio 20:1 ABG pH 7.42 ABG pCO2 61.7 H ABG pO2 165.3 H ABG HCO3 38.8 H ABG O2 Saturation 99.1 H ABG Base Excess 11.9 FiO2 50% Impressions: Chest X-Ray 06/10/17 16:59 IMPRESSION: COPD WITH CHRONIC SCARRING. CARDIOMEGALY PRESENT WITH BILATERAL PLEURAL EFFUSIONS, POSSIBLE SUPERIMPOSED CONGESTIVE FAILURE. Assessment & Plan - Diagnosis (1) Acute and chronic respiratory failure ([id number]) Qualifiers: Respiratory failure complication: hypoxia and hypercapnia Qualified Code(s) : J96.21 - Acute and chronic respiratory failure with hypoxia; J96.22 - Acute and chronic respiratory failure with hypercapnia Is this a current diagnosis for this admission?: Yes Plan: admit in icu and bipap and consult pulmonary (2) Atrial fibrillation Qualifiers: Atrial fibrillation type: chronic Qualified Code(s): I48.2 - Chronic atrial fibrillation Is this a current diagnosis for this admission?: Yes Plan: check pt/inr cont curr med consult cardilogy (3) CO2 narcosis Is this a current diagnosis for this admission?: Yes Plan: cont curr (4) COPD with exacerbation Is this a current diagnosis for this admission?: Yes (5) Chronic kidney disease Qualifiers: Chronic kidney disease stage: stage 3 (moderate) Qualified Code(s): N18.3 - Chronic kidney disease, stage 3 (moderate) Is this a current diagnosis for this admission?: Yes (6) Congestive heart failure (CHF) Qualifiers: Congestive heart failure type: unspecified congestive heart failure type Congestive heart failure chronicity: acute on chronic Qualified Code(s): I50.9 - Heart failure, unspecified Is this a current diagnosis for this admission?: Yes Plan: lasix and get echo (7) Elevated troponin I level Is this a current diagnosis for this admission?: Yes Plan: consullt cardilogy (8) Tobacco abuse Is this a current diagnosis for this admission?: Yes - Time Time Spent: 50 to 70 Minutes Critical Time spent with patient: 15-24 minutes Medications reviewed and adjusted accordingly: Yes Anticipated discharge: Home Within: Other - Inpatient Certification Medical Necessity: Significant Comorbidiites Make Outpatient Treatment Too Risky , Need for IV Antibiotics Post Hospital Care: D/C Program Specialist Documentation - Plan Summary Plan Summary: d/w pt and daughter and other family in [place]
--- NOTE | 2017-06-11 10:37 | PDOC PROGRESS REPORT ---
Subjective Progress Note for:: 06/11/17 Subjective:: Patient is currently doing much better. Patient's was put on a BiPAP overnight and PCO2 level is currently all improving After the Lasix patients the lungs sound is also improving Since seen by pulmonary and cardiology and order the echocardiogram Physical Exam Vital Signs: Temp Pulse Resp BP Pulse Ox 98.4 F 116 H 20 126/75 H 100 06/11/17 10:00 06/11/17 10:00 06/11/17 10:00 06/11/17 10:00 06/11/17 10:00 Intake & Output 06/10/17 06/11/17 06/12/17 06:59 06:59 06:59 Intake Total 60 Output Total 400 130 Balance -340 -130 Weight 47.2 kg General appearance: PRESENT: no acute distress, well-developed, well-nourished Head exam: PRESENT: atraumatic, normocephalic Eye exam: PRESENT: conjunctiva pink, EOMI, PERRLA. ABSENT: scleral icterus Ear exam: PRESENT: normal external ear exam Mouth exam: PRESENT: moist, tongue midline Neck exam: PRESENT: full ROM. ABSENT: carotid bruit, JVD, lymphadenopathy, thyromegaly Respiratory exam: PRESENT: decreased breath sounds Cardiovascular exam: PRESENT: RRR. ABSENT: diastolic murmur, rubs, systolic murmur Pulses: PRESENT: normal dorsalis pedis pul, +2 pedal pulses bilateral Vascular exam: PRESENT: normal capillary refill GI/Abdominal exam: PRESENT: normal bowel sounds, soft. ABSENT: distended, guarding, mass, organolmegaly, rebound, tenderness Rectal exam: PRESENT: deferred Extremities exam: PRESENT: pedal edema Neurological exam: PRESENT: alert, awake, oriented to person, oriented to place , oriented to time, oriented to situation, CN II-XII grossly intact. ABSENT: motor sensory deficit Psychiatric exam: PRESENT: appropriate affect, normal mood. ABSENT: homicidal ideation, suicidal ideation Skin exam: PRESENT: dry, intact, warm. ABSENT: cyanosis, rash Results Laboratory Results: 06/11/17 07:14 06/11/17 07:14 06/10/17 06/11/17 06/11/17 20:03 07:14 07:14 WBC 5.3 RBC 3.77 Hgb 11.4 L Hct 35.5 L MCV 94 MCH 30.2 MCHC 32.1 RDW 17.9 H Plt Count 122 L Seg Neutrophils % 88.8 H Lymphocytes % 8.8 L Monocytes % 2.1 L Eosinophils % 0.0 Basophils % 0.3 Absolute Neutrophils 4.7 Absolute Lymphocytes 0.5 Absolute Monocytes 0.1 Absolute Eosinophils 0.0 Absolute Basophils 0.0 Carbonic Acid 1.86 H HCO3/H2CO3 Ratio 20:1 ABG pH 7.42 ABG pCO2 61.7 H ABG pO2 165.3 H ABG HCO3 38.8 H ABG O2 Saturation 99.1 H ABG Base Excess 11.9 FiO2 50% Sodium 136.5 L Potassium 3.9 Chloride 91 L Carbon Dioxide 39 H Anion Gap 7 BUN 24 H Creatinine 1.01 Est GFR ( Amer) > 60 Est GFR (Non-Af Amer) 54 L Glucose 152 H Calcium 8.9 06/11/17 08:10 WBC RBC Hgb Hct MCV MCH MCHC RDW Plt Count Seg Neutrophils % Lymphocytes % Monocytes % Eosinophils % Basophils % Absolute Neutrophils Absolute Lymphocytes Absolute Monocytes Absolute Eosinophils Absolute Basophils Carbonic Acid 1.75 H HCO3/H2CO3 Ratio 23:1 ABG pH 7.46 H ABG pCO2 58.0 H ABG pO2 113.5 H ABG HCO3 40.5 H ABG O2 Saturation 98.2 H ABG Base Excess 14.3 FiO2 40% Sodium Potassium Chloride Carbon Dioxide Anion Gap BUN Creatinine Est GFR ( Amer) Est GFR (Non-Af Amer) Glucose Calcium 06/10/17 06/10/17 06/11/17 22:55 22:55 06:53 Creatine Kinase 42 41 CK-MB (CK-2) 3.56 Troponin I 0.382 06/11/17 06:53 Creatine Kinase CK-MB (CK-2) 3.10 Troponin I 0.312 Impressions: Chest X-Ray 06/10/17 16:59 IMPRESSION: COPD WITH CHRONIC SCARRING. CARDIOMEGALY PRESENT WITH BILATERAL PLEURAL EFFUSIONS, POSSIBLE SUPERIMPOSED CONGESTIVE FAILURE. Chest/Abdomen CTA 06/10/17 19:09 IMPRESSION: NORMAL CTA OF THE CHEST. NO PULMONARY EMBOLI. CHRONIC INTERSTITIAL SCARRING. MODERATE LEFT PLEURAL EFFUSION AND SMALL RIGHT PLEURAL EFFUSION. Assessment & Plan - Diagnosis (1) Acute and chronic respiratory failure ([id number]) Qualifiers: Respiratory failure complication: hypoxia and hypercapnia Qualified Code(s) : J96.21 - Acute and chronic respiratory failure with hypoxia; J96.22 - Acute and chronic respiratory failure with hypercapnia Is this a current diagnosis for this admission?: Yes Plan: Currently all improving back to the nasal cannula repeat the ABG in the repeat the chest x-ray (2) Atrial fibrillation Qualifiers: Atrial fibrillation type: chronic Qualified Code(s): I48.2 - Chronic atrial fibrillation Is this a current diagnosis for this admission?: Yes Plan: Clear rate under control INR is 3.5 will continues to monitor (3) CO2 narcosis Is this a current diagnosis for this admission?: Yes Plan: cont curr (4) COPD with exacerbation Is this a current diagnosis for this admission?: Yes Plan: Reduce the IV Solu-Medrol (5) Chronic kidney disease Qualifiers: Chronic kidney disease stage: stage 3 (moderate) Qualified Code(s): N18.3 - Chronic kidney disease, stage 3 (moderate) Is this a current diagnosis for this admission?: Yes Plan: Antley all stable (6) Congestive heart failure (CHF) Qualifiers: Congestive heart failure type: unspecified congestive heart failure type Congestive heart failure chronicity: acute on chronic Qualified Code(s): I50.9 - Heart failure, unspecified Is this a current diagnosis for this admission?: Yes Plan: Continues to IV Lasix follow with the cardiology (7) Elevated troponin I level Is this a current diagnosis for this admission?: Yes Plan: No sign of acute coronary syndrome per cardiology most likely underlying respiratory failure and congestive heart failure (8) Tobacco abuse Is this a current diagnosis for this admission?: Yes - Time Time Spent with patient: 15-24 minutes Medications reviewed and adjusted accordingly: Yes Anticipated discharge: Other Within: Other - Inpatient Certification Medical Necessity: Need Close Monitoring Due to Risk of Patient Decompensation, Need for IV Antibiotics 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 Morataya will reevaluate the patient's pain medications to be readjust This with the patient and the family about smoking cessation also discuss about the all the test results Will downgrade to the IMCU if he remained stable for the next couple of hours
[2017-06-11] MEDS ORDERED: TUBERCULIN,PURIF.PROT.DERIV. 5 TU/0.1 ML TEST 1 ML VIAL ID ONE (11:00)
--- NOTE | 2017-06-11 11:32 | RADIOLOGY REPORT (SQ) ---
EXAM DESCRIPTION: CHEST SINGLE VIEW COMPLETED DATE/TIME: 06/11/2017 11:17 am REASON FOR STUDY: chf/copd COMPARISON: 06/10/2017 EXAM PARAMETERS: NUMBER OF VIEWS: One view. TECHNIQUE: Single frontal radiographic view of the chest acquired. RADIATION DOSE: NA LIMITATIONS: None. FINDINGS: LUNGS AND PLEURA: Stable bilateral pleural effusions with associated compressive atelectas is. Lungs otherwise clear. MEDIASTINUM AND HILAR STRUCTURES: No masses. Contour normal. HEART AND VASCULAR STRUCTURES: Heart stable in size. Normal vasculature. BONES: No acute findings. HARDWARE: Stable. OTHER: No other significant finding. IMPRESSION: STABLE BILATERAL PLEURAL EFFUSIONS WITH INTERVAL RESOLUTION PULMONARY EDEMA. TECHNICAL DOCUMENTATION: JOB ID: [id number]
[2017-06-11] MEDS ORDERED: METHYLPREDNISOLONE INJ 125 MG/2 ML SDV IV SCH (12:00)
--- NOTE | 2017-06-11 14:07 | XCELERA REPORT ---
[address] [address] Transthoracic Echocardiogram Report Name: JUNAID VILCHIS Age: 72 yrs Gender: Female : 1945 Patient Status: Inpatient Patient Location: ICU^2^A Study Date: 06/11/2017 11:32 AM Height: 61 in Weight: 104 lb BSA: 1.4 m2 Procedure: A complete two-dimensional transthoracic echocardiogram was performed (2D, M-mode, spectral and color flow Doppler). The study was technically adequate with some images being suboptimal in quality. Reason For Study: Evaluate for NSTEMI Ordering Physician: FARNAZ GRAYSON Performed By: Campos Aviles Interpretation Summary The left ventricular ejection fraction is within normal limits. Doppler measurements suggest reversible restrictive left ventricular relaxation, which is associated with grade III/IV or moderate diastolic dysfunction There is mild concentric left ventricular hypertrophy. The right ventricle is moderately dilated. The right ventricle appears to be hypertrophied The right ventricular systolic function is mildly reduced. There is a moderate to severe amount of tricuspid regurgitation There is servere pulmonary hypertension by echo The left atrium is moderately dilated. The right atrium is moderately dilated. There is a moderate amount of mitral regurgitation There is no mitral valve stenosis. No aortic regurgitation is present. There is no aortic valve stenosis The inferior vena cava appeared dilated and decreased < 50% with respiration (RAP 15-20 mmHg) There is no pericardial effusion. MMode/2D Measurements & Calculations RVDd: 2.8 cm LVIDd: 4.1 cm FS: 42.8 % Ao root diam: 2.9 cm IVSd: 1.2 cm LVIDs: 2.3 cm EDV(Teich): 73.3 ml LVPWd: 0.99 cm ESV(Teich): 18.8 ml Ao root area: 6.6 cm2 EF(Teich): 74.4 % LA dimension: 4.1 cm Doppler Measurements & Calculations MV E max allyn: MV P1/2t max allyn: Ao V2 max: LV V1 max P.6 cm/sec 126.1 cm/sec 79.0 cm/sec 1.1 mmHg MV P1/2t: 29.3 msec Ao max PG: LV V1 max: 2.5 mmHg 52.4 cm/sec MVA(P1/2t): 7.5 cm2 MV dec slope: 1263 cm/sec2 PA V2 max: PI end-d allyn: TR max allyn: RAP systole: 60.7 cm/sec 196.5 cm/sec 362.1 cm/sec 10.0 mmHg PA max P.5 mmHg TR max P.5 mmHg RVSP(TR): 62.5 mmHg Left Ventricle The left ventricle is grossly normal size. There is mild concentric left ventricular hypertrophy. The left ventricular ejection fraction is within normal limits. Doppler measurements suggest reversible restrictive left ventricular relaxation, which is associated with grade III/IV or moderate diastolic dysfunction. Wall motion cannot be accurately commented on, but no definite regional wall motion abnormalities noted. Right Ventricle The right ventricle is moderately dilated. The right ventricle appears to be hypertrophied. The right ventricular systolic function is mildly reduced. Atria The right atrium is moderately dilated. The left atrium is moderately dilated. Interarterial septum not well visualized and not well dopplered. Cannot comment on ASD/PFO presence. Mitral Valve The mitral valve leaflets are sclerotic, but show no functional abnormalities. There is no mitral valve stenosis. There is a moderate amount of mitral regurgitation. Aortic Valve The aortic valve is grossly normal. There is no aortic valve stenosis. No aortic regurgitation is present. Tricuspid Valve The tricuspid valve is not well visualized, but is grossly normal. There is no tricuspid stenosis. There is a moderate to severe amount of tricuspid regurgitation. There is servere pulmonary hypertension by echo. Pulmonic Valve The pulmonic valve is not well visualized. Great Vessels The aortic root is not well visualized but is probably normal size. The inferior vena cava appeared dilated and decreased < 50% with respiration (RAP 15-20 mmHg). Effusions There is no pericardial effusion. : FARNAZ GRAYSON > Farnaz Grayson
[2017-06-11 14:15] LABS: ARTERIAL BLOOD O2 SATURATION 97.7 % (94-98)
[2017-06-11] MEDS ORDERED: NICOTINE 21 MG/24 HR PATCH.TD24 TD ONE (17:00)
[2017-06-11] MEDS: METHYLPREDNISOLONE INJ 40 MG/1 ML SDV IV SCH (18:30)
[2017-06-11] MEDS ORDERED: LEVOFLOXACIN 500 MG/D5W RTU 500 MG/100 ML RTUPB IV ONE (19:00)
[2017-06-11] MEDS: OXYCODONE-ACETAMINOPHEN 5-325 MG TABLET PO PRN (20:39)
[2017-06-11] MEDS: ATORVASTATIN CALCIUM 20 MG TABLET PO SCH (22:32)
[2017-06-12] MEDS: LEVALBUTEROL HCL NEB 1.25 MG/3 ML AMPUL NEB SCH ×6 (04:07→23:37)
[2017-06-12] MEDS: METHYLPREDNISOLONE INJ 40 MG/1 ML SDV IV SCH ×2 (05:53→17:51)
[2017-06-12] MEDS: OXYCODONE-ACETAMINOPHEN 5-325 MG TABLET PO PRN ×3 (05:57→17:52)
[2017-06-12 06:40] LABS: HEMATOCRIT 33.7 % (36.0-47.0); HGB HCT DIFFERENCE -0.7; MEAN CORPUSCULAR HGB CONC 32.6 g/dL (32.0-36.0); MEAN CORPUSCULAR VOLUME 92 fl (80-97); RED BLOOD COUNT 3.66 10^6/uL (3.72-5.28); RED CELL DISTRIBUTION WIDTH 17.9 % (11.5-14.0)
[2017-06-12 06:47] LABS: PROTHROMBIN TIME 33.7 SEC (11.4-15.4)
[2017-06-12 06:54] LABS: ANION GAP 9 (5-19); BLOOD UREA NITROGEN 25 mg/dL (7-20); CALCIUM 9.4 mg/dL (8.4-10.2); CARBON DIOXIDE 37 mmol/L (22-30); CHLORIDE 92 mmol/L (98-107); CREATININE RESULT 0.98 mg/dL (0.52-1.25); GLUCOSE 133 mg/dL (75-110); POTASSIUM 3.6 mmol/L (3.6-5.0); SODIUM 138.2 mmol/L (137-145)
[2017-06-12 07:14] LABS: BASOPHILS % (MANUAL) 0 % (0-2); EOSINOPHILS % (MANUAL) 0 % (0-6)
[2017-06-12 07:16] LABS: BAND NEUTROPHILS % (MANUAL) 3 % (3-5); LYMPHOCYTES % (MANUAL) 7 % (13-45); TOTAL CELLS COUNTED 100
[2017-06-12 07:18] LABS: TOXIC GRANULATION 1+; TOXIC VACUOLATION PRESENT
[2017-06-12 07:19] LABS: ANISOCYTOSIS 1+; OVALOCYTES SLIGHT; POIKILOCYTOSIS 1+; TARGET CELLS 1+
--- NOTE | 2017-06-12 08:57 | PDOC PROGRESS REPORT ---
Subjective Progress Note for:: 06/12/17 Subjective:: Self feeding at the time of my evaluation this morning. No nausea or vimiting., No abdominal pain. She denied any chest pain remain on supplemental oxygen via nasal cannula. No fever or chills. Physical Exam Vital Signs: Temp Pulse Resp BP Pulse Ox 99.1 F 124 H 20 145/56 H 98 06/12/17 08:07 06/12/17 08:07 06/12/17 08:07 06/12/17 08:07 06/12/17 08:07 Intake & Output 06/11/17 06/12/17 06/13/17 06:59 06:59 06:59 Intake Total 60 1020 Output Total 400 1500 Balance -340 -480 Weight 47.2 kg 47.3 kg Physical Exam: General appearance: PRESENT: no acute distress, cooperative Head exam: PRESENT: atraumatic, normocephalic Eye exam: PRESENT: conjunctiva pink, EOMI, PERRLA. ABSENT: scleral icterus Mouth exam: PRESENT: moist Teeth exam: PRESENT: edentulous - dentures in use Respiratory exam: PRESENT: clear to auscultation leslie, decreased breath sounds - at lung bases Cardiovascular exam: PRESENT: RRR. ABSENT: diastolic murmur, rubs, systolic murmur GI/Abdominal exam: PRESENT: normal bowel sounds, soft. ABSENT: distended, guarding, mass, organomegaly, rebound, tenderness Genitourinary exam: PRESENT: Indwelling Peter catheter Extremities exam: PRESENT: Arthritis related to multiple joint involvement with arthritis. ABSENT: pedal edema. Neurological exam: PRESENT: alert, awake, oriented to person, oriented to place , oriented to time, oriented to situation, CN II-XII grossly intact. ABSENT: motor sensory deficit Psychiatric exam: PRESENT: appropriate affect, normal mood. ABSENT: homicidal ideation, suicidal ideation Skin exam: PRESENT: dry, intact, warm. ABSENT: cyanosis, rash Results Laboratory Results: 06/12/17 05:44 06/12/17 05:44 06/11/17 06/11/17 06/12/17 13:12 14:00 05:44 WBC 11.0 H D RBC 3.66 L Hgb 11.0 L Hct 33.7 L MCV 92 MCH 30.0 MCHC 32.6 RDW 17.9 H Plt Count 134 L Seg Neutrophils % Not Reportable Lymphocytes % Not Reportable Monocytes % Not Reportable Eosinophils % Not Reportable Basophils % Not Reportable Absolute Neutrophils Not Reportable Absolute Lymphocytes Not Reportable Absolute Monocytes Not Reportable Absolute Eosinophils Not Reportable Absolute Basophils Not Reportable Carbonic Acid Cancelled 1.48 H HCO3/H2CO3 Ratio Cancelled 24:1 ABG pH Cancelled 7.48 H ABG pCO2 Cancelled 49.1 H ABG pO2 Cancelled 96.5 ABG HCO3 Cancelled 36.0 H ABG O2 Saturation Cancelled 97.7 ABG Base Excess Cancelled 11.0 FiO2 Cancelled 4L Sodium Potassium Chloride Carbon Dioxide Anion Gap BUN Creatinine Est GFR ( Amer) Est GFR (Non-Af Amer) Glucose Calcium 06/12/17 05:44 WBC RBC Hgb Hct MCV MCH MCHC RDW Plt Count Seg Neutrophils % Lymphocytes % Monocytes % Eosinophils % Basophils % Absolute Neutrophils Absolute Lymphocytes Absolute Monocytes Absolute Eosinophils Absolute Basophils Carbonic Acid HCO3/H2CO3 Ratio ABG pH ABG pCO2 ABG pO2 ABG HCO3 ABG O2 Saturation ABG Base Excess FiO2 Sodium 138.2 Potassium 3.6 Chloride 92 L Carbon Dioxide 37 H Anion Gap 9 BUN 25 H Creatinine 0.98 Est GFR ( Amer) > 60 Est GFR (Non-Af Amer) 56 L Glucose 133 H Calcium 9.4 06/10/17 06/10/17 06/11/17 22:55 22:55 06:53 Creatine Kinase 42 41 CK-MB (CK-2) 3.56 Troponin I 0.382 NT-Pro-B Natriuret Pep 06/11/17 06/12/17 06:53 05:44 Creatine Kinase CK-MB (CK-2) 3.10 Troponin I 0.312 NT-Pro-B Natriuret Pep 9980 H Impressions: Chest/Abdomen CTA 06/10/17 19:09 IMPRESSION: NORMAL CTA OF THE CHEST. NO PULMONARY EMBOLI. CHRONIC INTERSTITIAL SCARRING. MODERATE LEFT PLEURAL EFFUSION AND SMALL RIGHT PLEURAL EFFUSION. Chest X-Ray 06/11/17 00:00 IMPRESSION: STABLE BILATERAL PLEURAL EFFUSIONS WITH INTERVAL RESOLUTION PULMONARY EDEMA. Assessment & Plan - Diagnosis (1) Acute and chronic respiratory failure ([id number]) Qualifiers: Respiratory failure complication: hypoxia and hypercapnia Qualified Code(s) : J96.21 - Acute and chronic respiratory failure with hypoxia; J96.22 - Acute and chronic respiratory failure with hypercapnia Is this a current diagnosis for this admission?: Yes Plan: See attending physician orders. (2) Congestive heart failure (CHF) Qualifiers: Congestive heart failure type: diastolic Congestive heart failure chronicity: acute on chronic Qualified Code(s): I50.33 - Acute on chronic diastolic (congestive) heart failure Is this a current diagnosis for this admission?: Yes Plan: See attending physician orders. (3) Atrial fibrillation Qualifiers: Atrial fibrillation type: chronic Qualified Code(s): I48.2 - Chronic atrial fibrillation Is this a current diagnosis for this admission?: Yes Plan: See attending physician orders. (4) Tobacco abuse Is this a current diagnosis for this admission?: Yes Plan: See attending physician orders. - Time Time Spent with patient: 25-34 minutes Smoking Cessation Education: 3 to 10 minutes Medications reviewed and adjusted accordingly: Yes Anticipated discharge: Home with Homehealth Within: Other - Inpatient Certification Based on my medical assessment, after consideration of the patient's comorbidities, presenting symptoms, or acuity I expect that the services needed warrant INPATIENT care.: Yes I certify that my determination is in accordance with my understanding of Medicare's requirements for reasonable and necessary INPATIENT services [42 CFR 412.3e].: Yes Medical Necessity: Need Close Monitoring Due to Risk of Patient Decompensation, Need For Continuous Telemetry Monitoring, Risk of Complication if Not Cared For in Hospital 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 Maintain on all current medication management. Discussed her echocardiogram findings with Dr Aceves.
[2017-06-12 09:28] LABS: ARTERIAL BLOOD BASE EXCESS 15.5 mmol/L; ARTERIAL BLOOD O2 SATURATION 96.3 % (94-98)
[2017-06-12] MEDS: NICOTINE 21 MG/24 HR PATCH.TD24 TD SCH (10:20)
[2017-06-12] MEDS: FUROSEMIDE INJ/PF 20 MG/2 ML SDV IV SCH (10:20)
--- NOTE | 2017-06-12 10:39 | PDOC PROGRESS REPORT ---
Subjective Progress Note for:: 06/12/17 Physical Exam Vital Signs: Temp Pulse Resp BP Pulse Ox 99.1 F 124 H 20 145/56 H 98 06/12/17 08:07 06/12/17 08:07 06/12/17 08:07 06/12/17 08:07 06/12/17 08:07 Intake & Output 06/11/17 06/12/17 06/13/17 06:59 06:59 06:59 Intake Total 60 1020 Output Total 400 1500 Balance -340 -480 Weight 47.2 kg 47.3 kg General appearance: PRESENT: no acute distress, disheveled, thin Head exam: PRESENT: atraumatic, normocephalic Eye exam: PRESENT: conjunctiva pale, EOMI Mouth exam: PRESENT: dry mucosa, neck supple, tongue midline Neck exam: ABSENT: carotid bruit, JVD, lymphadenopathy, thyromegaly Respiratory exam: PRESENT: decreased breath sounds, prolonged expiratory phas, symmetrical, unlabored, wheezes Cardiovascular exam: PRESENT: RRR, +S1, +S2 Pulses: PRESENT: normal radial pulses GI/Abdominal exam: PRESENT: normal bowel sounds, soft. ABSENT: distended, guarding, mass, organolmegaly, rebound, tenderness Rectal exam: PRESENT: deferred Gentrourinary exam: PRESENT: indwelling catheter Musculoskeletal exam: PRESENT: normal inspection Neurological exam: PRESENT: awake Psychiatric exam: PRESENT: flat affect Skin exam: PRESENT: dry, warm Results Laboratory Results: 06/12/17 05:44 06/12/17 05:44 06/11/17 06/11/17 06/12/17 13:12 14:00 05:44 WBC 11.0 H D RBC 3.66 L Hgb 11.0 L Hct 33.7 L MCV 92 MCH 30.0 MCHC 32.6 RDW 17.9 H Plt Count 134 L Seg Neutrophils % Not Reportable Lymphocytes % Not Reportable Monocytes % Not Reportable Eosinophils % Not Reportable Basophils % Not Reportable Absolute Neutrophils Not Reportable Absolute Lymphocytes Not Reportable Absolute Monocytes Not Reportable Absolute Eosinophils Not Reportable Absolute Basophils Not Reportable Carbonic Acid Cancelled 1.48 H HCO3/H2CO3 Ratio Cancelled 24:1 ABG pH Cancelled 7.48 H ABG pCO2 Cancelled 49.1 H ABG pO2 Cancelled 96.5 ABG HCO3 Cancelled 36.0 H ABG O2 Saturation Cancelled 97.7 ABG Base Excess Cancelled 11.0 FiO2 Cancelled 4L Sodium Potassium Chloride Carbon Dioxide Anion Gap BUN Creatinine Est GFR ( Amer) Est GFR (Non-Af Amer) Glucose Calcium 06/12/17 06/12/17 05:44 09:15 WBC RBC Hgb Hct MCV MCH MCHC RDW Plt Count Seg Neutrophils % Lymphocytes % Monocytes % Eosinophils % Basophils % Absolute Neutrophils Absolute Lymphocytes Absolute Monocytes Absolute Eosinophils Absolute Basophils Carbonic Acid 1.88 H HCO3/H2CO3 Ratio 22:1 ABG pH 7.45 ABG pCO2 62.3 H ABG pO2 83.5 ABG HCO3 42.2 H ABG O2 Saturation 96.3 ABG Base Excess 15.5 FiO2 4 Sodium 138.2 Potassium 3.6 Chloride 92 L Carbon Dioxide 37 H Anion Gap 9 BUN 25 H Creatinine 0.98 Est GFR ( Amer) > 60 Est GFR (Non-Af Amer) 56 L Glucose 133 H Calcium 9.4 06/10/17 06/10/17 06/11/17 22:55 22:55 06:53 Creatine Kinase 42 41 CK-MB (CK-2) 3.56 Troponin I 0.382 NT-Pro-B Natriuret Pep 06/11/17 06/12/17 06:53 05:44 Creatine Kinase CK-MB (CK-2) 3.10 Troponin I 0.312 NT-Pro-B Natriuret Pep 9980 H Impressions: Chest/Abdomen CTA 06/10/17 19:09 IMPRESSION: NORMAL CTA OF THE CHEST. NO PULMONARY EMBOLI. CHRONIC INTERSTITIAL SCARRING. MODERATE LEFT PLEURAL EFFUSION AND SMALL RIGHT PLEURAL EFFUSION. Chest X-Ray 06/11/17 00:00 IMPRESSION: STABLE BILATERAL PLEURAL EFFUSIONS WITH INTERVAL RESOLUTION PULMONARY EDEMA. Assessment & Plan - Diagnosis (1) Acute and chronic respiratory failure ([id number]) Qualifiers: Respiratory failure complication: hypoxia and hypercapnia Qualified Code(s) : J96.21 - Acute and chronic respiratory failure with hypoxia; J96.22 - Acute and chronic respiratory failure with hypercapnia Is this a current diagnosis for this admission?: Yes Plan: reeat ABG (2) Atrial fibrillation Qualifiers: Atrial fibrillation type: chronic Qualified Code(s): I48.2 - Chronic atrial fibrillation Is this a current diagnosis for this admission?: Yes (3) COPD with exacerbation Is this a current diagnosis for this admission?: Yes Plan: consider adding long acting muscarinic agent (4) Pleural effusion Is this a current diagnosis for this admission?: Yes Plan: repeat cxr (5) Interstitial lung disease Is this a current diagnosis for this admission?: Yes (6) Congestive heart failure (CHF) Qualifiers: Congestive heart failure type: diastolic Congestive heart failure chronicity: acute on chronic Qualified Code(s): I50.33 - Acute on chronic diastolic (congestive) heart failure Is this a current diagnosis for this admission?: Yes (7) Tobacco abuse Is this a current diagnosis for this admission?: Yes
--- NOTE | 2017-06-12 12:23 | PROGRESS NOTE E ---
Progress Note NAME: JUNAID VILCHIS : 1945 AGE: 72Y DATE: 06/12/2017 ROOM: 320 SUBJECTIVE: The patient states that she is much improved. There is only minimal shortness of breath. She denies any PND, orthopnea or chest pain. She remains in chronic atrial fibrillation with a heart rate slightly high. She complains of a cough productive of whitish and yellowish sputum. There is no pleuritic chest pain. There is no hemoptysis. There is no chest pain of any kind. OBJECTIVE: GENERAL: On examination, the patient appears to be chronically ill but seems to be well groomed. VITAL SIGNS: Temperature is 99.1 degrees Fahrenheit, pulse is 110 beats per minute, blood pressure is 145/56, respirations are 20 per minute, and O2 sat is 98% on 4 L nasal cannula. HEENT: Head is atraumatic, normocephalic. Eyes - Pupils are equal, round, regular, reactive to light and accommodation. Extraocular movements are normal. There is no conjunctival pallor. There is no scleral icterus. ENT is negative. NECK: Supple without lymphadenopathy. Trachea is central. There is no lymphadenopathy. Carotids are 2+ without any bruits. JVD is normal. LUNGS: Bibasilar mild scattered rhonchi and a few crackles present. Bibasilar dullness noted. There are no rales of CHF. HEART: S1, S2 heard. S1 is of variable intensity. There is no S3 gallop. There is no S4 gallop. There is a systolic murmur at the left sternal border and the apex. There is no rub. ABDOMEN: Soft, nontender. There is no hepatosplenomegaly. Bowel sounds are well heard. There is no guarding. There is no rebound. No rigidity noted. No masses appreciated. EXTREMITIES: Pedal pulses are mildly reduced. Femorals are reduced. There are no femoral bruits. There is no clubbing or cyanosis. There is no calf tenderness. There is trace pedal edema noted. CENTRAL NERVOUS SYSTEM: The patient is conscious, awake, alert, and oriented x3 without any focal deficits. PSYCHIATRIC: The patient's judgement and insight are intact. Her affect is normal. DIAGNOSTICS: The patient's 24-hour intake is 1020 mL, output is 1500 mL. The patient's ABG shows a pH of 7.45, PCO2 is elevated at 82.3, PCO2 is 83.5, O2 sats are 96.3% on 4 L nasal cannula. The patient's sodium is 138.2, potassium is 3.6, chloride is 92, CO2 is 37, BUN is 25, creatinine is 0.98, and GFR is reduced at 56 mL, which makes chronic kidney disease stage 3. The patient's INR is 3.13, pro time is 33.7. The patient's white count is 11,000, hemoglobin is 11, hematocrit is 33.7, platelet count is 134,000. IMPRESSION: 1. ACUTE ON CHRONIC RESPIRATORY FAILURE, AT PRESENT SEEMS TO BE HYPERCAPNIC, OXYGEN LEVEL IS NORMAL. THERE IS SOME IMPROVEMENT IN *------*. 2. COPD WITH EXACERBATION. 3. CONGESTIVE HEART FAILURE THAT SEEMS TO BE RIGHT-SIDED FAILURE. 4. TOBACCO ABUSE. 5. CHRONIC KIDNEY DISEASE, STAGE 3A. 6. ELEVATED TROPONIN I. Troponin was coming down to 0.312 yesterday. Her NT-proBNP is 9980. 7. ATRIAL FIBRILLATION WITH SLIGHTLY FAST RESPONSE. 8. SEVERE PULMONARY HYPERTENSION. RECOMMENDATIONS: Continue the patient on Coumadin, continue antibiotics, continue respiratory treatment, and continue Nicoderm patch. The patient has been counseled to stop smoking. Continue methylprednisolone. Of note, the patient's INR is therapeutic on current medication. Note, 25 minutes was spent on the patient with more than 50% of the time spent on coordinating care and direct care of the patient, discussion and management with involved caregivers. Medical decision making was of moderate complexity due to the patient has multiple comorbidities. DICTATING PHYSICIAN: SHANTE HERNDON M.D. [id number] PHY#: [id number] ID: [id number] JOB#: [id number] ACCT: [id number] cc: >
--- NOTE | 2017-06-12 12:41 | RADIOLOGY REPORT (SQ) ---
EXAM DESCRIPTION: CHEST PA/LAT COMPLETED DATE/TIME: 06/12/2017 12:18 pm REASON FOR STUDY: resp failure acute/chronic ;pleural effusions COMPARISON: CT angio chest 06/10/2017, 10/21/2013, 06/17/2013 Chest films 06/11/2017, 06/10/2017, 07/30/2016 EXAM PARAMETERS: NUMBER OF VIEWS: two views TECHNIQUE: Digital Frontal and Lateral radiographic views of the chest acquired. RADIATION DOSE: NA LIMITATIONS: none FINDINGS: LUNGS AND PLEURA: On today's study, trace right pleural effusion and small left pleural ef fusion are present, similar compared to chest films 06/11/[address] angio chest 06/10/2017. There are increased interstitial markings at both bases likely Tu lines from interstitial edema. No fluffy alveolar edema in the perihilar regions. There is left retrocardiac consolidation atelectasis versus pneumonia, stable. No pneumothorax MEDIASTINUM AND HILAR STRUCTURES: No masses or contour abnormalities. HEART AND VASCULAR STRUCTURES: Moderate cardiomegaly BONES: Osteoporotic without thoracic compression deformity HARDWARE: None in the chest. OTHER: No other significant finding. IMPRESSION: Trace right, small left pleural effusion unchanged from 06/11/2017, 06/10/2017. Persistent left lower lobe consolidation atelectasis versus pneumonia TECHNICAL DOCUMENTATION: JOB ID: [id number] All Rights Reserved
[2017-06-12] MEDS ORDERED: METOPROLOL SUCCINATE 25 MG TAB.SR.24H PO ONE (15:30)
[2017-06-12] MEDS: LEVOFLOXACIN 250 MG/D5W RTU 250 MG/50 ML RTUPB IV SCH (17:51)
[2017-06-12] MEDS: ATORVASTATIN CALCIUM 20 MG TABLET PO SCH (21:32)
[2017-06-13] MEDS: OXYCODONE-ACETAMINOPHEN 5-325 MG TABLET PO PRN ×4 (01:01→22:30)
[2017-06-13] MEDS: LEVALBUTEROL HCL NEB 1.25 MG/3 ML AMPUL NEB SCH ×5 (03:44→20:25)
[2017-06-13] MEDS: METHYLPREDNISOLONE INJ 40 MG/1 ML SDV IV SCH (05:27)
[2017-06-13 07:25] LABS: PROTHROMBIN TIME 24.9 SEC (11.4-15.4)
[2017-06-13 07:33] LABS: BLOOD UREA NITROGEN 25 mg/dL (7-20); CALCIUM 9.5 mg/dL (8.4-10.2); CHLORIDE 90 mmol/L (98-107); CREATININE RESULT 0.81 mg/dL (0.52-1.25); GLUCOSE 140 mg/dL (75-110); POTASSIUM 3.7 mmol/L (3.6-5.0); SODIUM 137.2 mmol/L (137-145)
[2017-06-13 07:43] LABS: ANION GAP 5 (5-19)
[2017-06-13 07:49] LABS: CARBON DIOXIDE 42 mmol/L (22-30)
[2017-06-13] MEDS: FUROSEMIDE INJ/PF 20 MG/2 ML SDV IV SCH (10:20)
[2017-06-13] MEDS: METOPROLOL SUCCINATE 25 MG TAB.SR.24H PO SCH (10:21)
[2017-06-13] MEDS: NICOTINE 21 MG/24 HR PATCH.TD24 TD SCH (10:21)
--- NOTE | 2017-06-13 11:56 | PDOC PROGRESS REPORT ---
Subjective Progress Note for:: 06/13/17 Subjective:: Patient seems to be doing better with gradual improvement. Pt is denying any chest arm or neck discomfort. Patient denying any PND, orthopnea. Patient denied any sustained palpitations, dizziness, syncope, near syncope. Patient denying any fever chills. Patient denying any other significant discomfort. Patient is much improved since admission. Patient is currently wearing bilevel therapy. Patient is maintaining chronic atrial fibrillation. Review of systems: Rest review of systems negative. Medications: Medications have been reviewed. Physical Exam Vital Signs: Temp Pulse Resp BP Pulse Ox 97.6 F 90 24 H 165/77 H 91 L 06/13/17 08:04 06/13/17 08:19 06/13/17 10:18 06/13/17 08:06 06/13/17 10:18 Intake & Output 06/12/17 06/13/17 06/14/17 06:59 06:59 06:59 Intake Total 1020 8959 Output Total 1500 1505 Balance -480 7454 Weight 47.3 kg 48.7 kg Exam: GENERAL: Thin built and in mild intermittent respiratory distress. Alert and oriented x3 HEAD: Atraumatic, normocephalic. EYES: Pupils equal round and reactive to light, extraocular movements intact, sclera anicteric, conjunctiva are normal. ENT: TMs normal, nares patent, oropharynx clear without exudates. Moist mucous membranes. No oral ulcerations or bleeding gums noted NECK: supple without lymphadenopathy. Trachea is central. No cervical or axillary lymphadenopathy noted. Carotids are 2+, JVD WNL LUNGS: Respiration seems nonlabored, no significant accessory muscle action noted. Bibasilar fine crackles and bilateral mild wheezing noted. Mild dullness noted left base. CHEST: Palpation of the chest wall shows no significant chest wall tenderness. No other significant abnormalities noted. 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 ABDOMEN: Soft, no significant tenderness appreciated, normoactive bowel sounds. No guarding, no rebound. No rigidity noted . No masses appreciated. EXTREMITIES: Pedal pulses are 1-2+, no calf tenderness noted. No clubbing or cyanosis.trace to 1+ pedal edema noted NEUROLOGICAL: Focused neurological exam showed no significant neurologic deficit. Normal speech, no focal weakness appreciated. PSYCH: Normal mood, normal affect. Judgment and insight within normal limits. SKIN: No significant ecchymosis, rash, ulcerations or signs of pruritus noted. MUSCULOSKELETAL EXAM: No significant joint swelling noted. Results Laboratory Results: 06/12/17 05:44 06/13/17 06:59 06/13/17 06/13/17 06:00 06:59 Carbonic Acid 1.93 H HCO3/H2CO3 Ratio 22:1 ABG pH 7.44 ABG pCO2 64.0 H ABG pO2 110.2 H ABG HCO3 42.9 H ABG O2 Saturation 98.0 ABG Base Excess 16.0 FiO2 3L Sodium 137.2 Potassium 3.7 Chloride 90 L Carbon Dioxide 42 H* Anion Gap 5 BUN 25 H Creatinine 0.81 Est GFR ( Amer) > 60 Est GFR (Non-Af Amer) > 60 Glucose 140 H Calcium 9.5 06/10/17 06/10/17 06/11/17 22:55 22:55 06:53 Creatine Kinase 42 41 CK-MB (CK-2) 3.56 Troponin I 0.382 NT-Pro-B Natriuret Pep 06/11/17 06/12/17 06:53 05:44 Creatine Kinase CK-MB (CK-2) 3.10 Troponin I 0.312 NT-Pro-B Natriuret Pep 9980 H EKG Comments: Telemetry strips shows chronic atrial fibrillation, heart rate slightly on the high side but reasonably well controlled. Impressions: Chest/Abdomen CTA 06/10/17 19:09 IMPRESSION: NORMAL CTA OF THE CHEST. NO PULMONARY EMBOLI. CHRONIC INTERSTITIAL SCARRING. MODERATE LEFT PLEURAL EFFUSION AND SMALL RIGHT PLEURAL EFFUSION. Chest X-Ray 06/12/17 10:05 IMPRESSION: Trace right, small left pleural effusion unchanged from 06/11/2017, . Persistent left lower lobe consolidation atelectasis versus pneumonia Assessment & Plan - Diagnosis (1) Acute and chronic respiratory failure ([id number]) Qualifiers: Respiratory failure complication: hypoxia and hypercapnia Qualified Code(s) : J96.21 - Acute and chronic respiratory failure with hypoxia; J96.22 - Acute and chronic respiratory failure with hypercapnia Is this a current diagnosis for this admission?: Yes (2) COPD with exacerbation Is this a current diagnosis for this admission?: Yes (3) Congestive heart failure (CHF) Qualifiers: Congestive heart failure type: diastolic Congestive heart failure chronicity: acute on chronic Qualified Code(s): I50.33 - Acute on chronic diastolic (congestive) heart failure Is this a current diagnosis for this admission?: Yes (4) Tobacco abuse Is this a current diagnosis for this admission?: Yes (5) Chronic kidney disease Qualifiers: Chronic kidney disease stage: stage 3 (moderate) Qualified Code(s): N18.3 - Chronic kidney disease, stage 3 (moderate) Is this a current diagnosis for this admission?: Yes (6) Elevated troponin I level Is this a current diagnosis for this admission?: Yes (7) Atrial fibrillation Qualifiers: Atrial fibrillation type: chronic Qualified Code(s): I48.2 - Chronic atrial fibrillation Is this a current diagnosis for this admission?: Yes (8) CO2 narcosis Is this a current diagnosis for this admission?: Yes (9) Pulmonary hypertension Is this a current diagnosis for this admission?: Yes - Notes Notes: Acute on chronic respiratory failure: Patient noted to have severe COPD and both hypoxemic and hypercarbic respiratory failure. Agree with oxygen supplementation. Patient needing intermittent noninvasive ventilatory support. Currently is stable on supplemental oxygen. COPD with exacerbation: Currently is stable being managed with bronchodilator and steroids. Patient has been advised to quit smoking. Congestive heart failure: Possibly diastolic and right heart failure combined. Agree with IV Lasix. Adequate therapy of COPD would help. 2D echo results reviewed. It shows severe pulmonary hypertension, grade 3 diastolic dysfunction but relatively well-preserved LVEF. Chronic kidney disease: Continue to monitor renal functions. Atrial fibrillation: Continue chronic Coumadin therapy, keep patient PT with INR in therapeutic range.. Abnormal troponin I: Most likely related to respiratory distress and CHF. Troponin I peaked at 0.38. At this point and ischemia workup is not planned but could be considered prior to discharge or as an outpatient once patient respiratory status improves and CHF is resolved. CO2 narcosis: This was noted on presentation. Currently improved. Pulmonary hypertension: Noted to be severe based on echocardiogram. Most likely related to severe COPD, diastolic dysfunction. Start patient on Cardizem for rate control and possibly there might be some help with pulmonary hypertension. - Time Time with patient: Greater than 35 minutes - CODE STATUS was discussed, patient remains full code. Surrogate decision-maker unchanged. Multiple medical problems were addressed. More than 50% of the time spent coordinating care, discussing management plans with involved caregivers. Management plans discussed with involved personnels. Medical decision making was of moderate to high complexity, patient's has multiple comorbidities. Medications reviewed and adjusted accordingly: Yes
[2017-06-13] MEDS ORDERED: DILTIAZEM HCL 30 MG TABLET PO SCH ×2 (12:00→13:20)
[2017-06-13 12:51] LABS: ARTERIAL BLOOD BASE EXCESS 14.8 mmol/L; ARTERIAL BLOOD O2 SATURATION 94.8 % (94-98)
--- NOTE | 2017-06-13 13:17 | PDOC PROGRESS REPORT ---
Subjective Progress Note for:: 06/13/17 Subjective:: Patient denied any chest pain, palpitation, PND, or orthopnea. Remain on supplemental oxygen at 3L/min via nasal cannula. No abdominal pain, nausea or vomiting. No fever or chills. Her chemistry and ABG evaluation this morning did suggest hypercapnia. Patient reported use of oxygen ta home mainly while sleeping at night and only at 2L/min. Physical Exam Vital Signs: Temp Pulse Resp BP Pulse Ox 97.6 F 103 H 14 165/77 H 91 L 06/13/17 08:04 06/13/17 11:52 06/13/17 11:52 06/13/17 08:06 06/13/17 10:18 Intake & Output 06/12/17 06/13/17 06/14/17 06:59 06:59 06:59 Intake Total 1020 8959 Output Total 1500 1505 Balance -480 7454 Weight 47.3 kg 48.7 kg Physical Exam: General appearance: PRESENT: no acute distress, cooperative Head exam: PRESENT: atraumatic, normocephalic Eye exam: PRESENT: conjunctiva pink, EOMI, PERRLA. ABSENT: scleral icterus Mouth exam: PRESENT: moist Teeth exam: PRESENT: edentulous - dentures in use Respiratory exam: PRESENT: clear to auscultation leslie, decreased breath sounds - at lung bases Cardiovascular exam: PRESENT: RRR. ABSENT: diastolic murmur, rubs, systolic murmur GI/Abdominal exam: PRESENT: normal bowel sounds, soft. ABSENT: distended, guarding, mass, organomegaly, rebound, tenderness Genitourinary exam: PRESENT: Indwelling Peter catheter Extremities exam: PRESENT: Arthritis related to multiple joint involvement with arthritis. ABSENT: pedal edema. Neurological exam: PRESENT: alert, awake, oriented to person, oriented to place , oriented to time, oriented to situation, CN II-XII grossly intact. ABSENT: motor sensory deficit Psychiatric exam: PRESENT: appropriate affect, normal mood. ABSENT: homicidal ideation, suicidal ideation Skin exam: PRESENT: dry, intact, warm. ABSENT: cyanosis, rash Results Laboratory Results: 06/12/17 05:44 06/13/17 06:59 06/13/17 06/13/17 06/13/17 06:00 06:59 11:15 Carbonic Acid 1.93 H 1.90 H HCO3/H2CO3 Ratio 22:1 21:1 ABG pH 7.44 7.44 ABG pCO2 64.0 H 63.0 H ABG pO2 110.2 H 73.7 L ABG HCO3 42.9 H 41.7 H ABG O2 Saturation 98.0 94.8 ABG Base Excess 16.0 14.8 FiO2 3L 30% Sodium 137.2 Potassium 3.7 Chloride 90 L Carbon Dioxide 42 H* Anion Gap 5 BUN 25 H Creatinine 0.81 Est GFR ( Amer) > 60 Est GFR (Non-Af Amer) > 60 Glucose 140 H Calcium 9.5 06/10/17 06/10/17 06/11/17 22:55 22:55 06:53 Creatine Kinase 42 41 CK-MB (CK-2) 3.56 Troponin I 0.382 NT-Pro-B Natriuret Pep 06/11/17 06/12/17 06:53 05:44 Creatine Kinase CK-MB (CK-2) 3.10 Troponin I 0.312 NT-Pro-B Natriuret Pep 9980 H Impressions: Chest/Abdomen CTA 06/10/17 19:09 IMPRESSION: NORMAL CTA OF THE CHEST. NO PULMONARY EMBOLI. CHRONIC INTERSTITIAL SCARRING. MODERATE LEFT PLEURAL EFFUSION AND SMALL RIGHT PLEURAL EFFUSION. Chest X-Ray 06/12/17 10:05 IMPRESSION: Trace right, small left pleural effusion unchanged from 06/11/2017, . Persistent left lower lobe consolidation atelectasis versus pneumonia Assessment & Plan - Diagnosis (1) Acute and chronic respiratory failure ([id number]) Qualifiers: Respiratory failure complication: hypoxia and hypercapnia Qualified Code(s) : J96.21 - Acute and chronic respiratory failure with hypoxia; J96.22 - Acute and chronic respiratory failure with hypercapnia Is this a current diagnosis for this admission?: Yes (2) Congestive heart failure (CHF) Qualifiers: Congestive heart failure type: diastolic Congestive heart failure chronicity: acute on chronic Qualified Code(s): I50.33 - Acute on chronic diastolic (congestive) heart failure Is this a current diagnosis for this admission?: Yes (3) Atrial fibrillation Qualifiers: Atrial fibrillation type: chronic Qualified Code(s): I48.2 - Chronic atrial fibrillation Is this a current diagnosis for this admission?: Yes (4) Tobacco abuse Is this a current diagnosis for this admission?: Yes (5) COPD (chronic obstructive pulmonary disease) Qualifiers: COPD type: COPD with acute exacerbation Qualified Code(s): J44.1 - Chronic obstructive pulmonary disease with (acute) exacerbation Is this a current diagnosis for this admission?: Yes Plan: See attending physician orders. (6) Pulmonary hypertension Is this a current diagnosis for this admission?: Yes Plan: See attending physician orders. - Time Time Spent with patient: 25-34 minutes Medications reviewed and adjusted accordingly: Yes Anticipated discharge: Home with Homehealth Within: Other - Inpatient Certification Based on my medical assessment, after consideration of the patient's comorbidities, presenting symptoms, or acuity I expect that the services needed warrant INPATIENT care.: Yes I certify that my determination is in accordance with my understanding of Medicare's requirements for reasonable and necessary INPATIENT services [42 CFR 412.3e].: Yes Medical Necessity: Need Close Monitoring Due to Risk of Patient Decompensation, Need For Continuous Telemetry Monitoring, Need for Nebulizer Therapy and Monitoring of Response, Risk of Complication if Not Cared For in Hospital Post Hospital Care: D/C [employer] Officer Documentation - Plan Summary Plan Summary: Decrease supplemental oxygen to 2L/min, maintain on BiPAP support while sleeping. D/C IV Lasix therapy. D/C Peter Catheter. Start on Acetazolamide 500 mg p.o daily. Increase Diltiazem to 60 mg po q6 hours.
[2017-06-13] MEDS ORDERED: PREDNISONE 20 MG TABLET PO ONE (14:00)
[2017-06-13] MEDS ORDERED: ACETAZOLAMIDE 500 MG CAPSULE.SA PO ONE (14:30)
--- NOTE | 2017-06-13 16:13 | PDOC PROGRESS REPORT ---
Subjective Progress Note for:: 06/13/17 Subjective:: Currently without complaints Physical Exam Vital Signs: Temp Pulse Resp BP Pulse Ox 97.6 F 90 16 165/77 H 92 06/13/17 08:04 06/13/17 08:19 06/13/17 08:19 06/13/17 08:06 06/13/17 08:19 Intake & Output 06/12/17 06/13/17 06/14/17 06:59 06:59 06:59 Intake Total 1020 8959 Output Total 1500 1505 Balance -480 7454 Weight 47.3 kg 48.7 kg General appearance: PRESENT: no acute distress, cooperative, disheveled, thin Head exam: PRESENT: atraumatic, normocephalic Eye exam: PRESENT: conjunctiva pale, EOMI Mouth exam: PRESENT: dry mucosa, neck supple, tongue midline Neck exam: ABSENT: carotid bruit, JVD, lymphadenopathy, thyromegaly Respiratory exam: PRESENT: decreased breath sounds, prolonged expiratory phas, rhonchi, symmetrical, unlabored, wheezes. ABSENT: accessory muscle use, chest wall tenderness, clear to auscultation leslie, crackles, rales, retraction, stridor Cardiovascular exam: PRESENT: bradycardia, RRR, +S1, +S2, tachycardia. ABSENT: irregular rhythm, rubs Pulses: PRESENT: normal radial pulses GI/Abdominal exam: PRESENT: normal bowel sounds, soft. ABSENT: distended, guarding, mass, organolmegaly, rebound, tenderness Rectal exam: PRESENT: deferred Gentrourinary exam: PRESENT: indwelling catheter Musculoskeletal exam: PRESENT: normal inspection Neurological exam: PRESENT: awake Psychiatric exam: PRESENT: flat affect Focused psych exam: ABSENT: catatonic, delusional, euphoric, flight of ideas, internal stimuli, paranoid, pressured speech, psychomotor agitation Skin exam: PRESENT: dry, warm. ABSENT: jaundice, mottled Results Laboratory Results: 06/12/17 05:44 06/13/17 06:59 06/13/17 06/13/17 06:00 06:59 Carbonic Acid 1.93 H HCO3/H2CO3 Ratio 22:1 ABG pH 7.44 ABG pCO2 64.0 H ABG pO2 110.2 H ABG HCO3 42.9 H ABG O2 Saturation 98.0 ABG Base Excess 16.0 FiO2 3L Sodium 137.2 Potassium 3.7 Chloride 90 L Carbon Dioxide 42 H* Anion Gap 5 BUN 25 H Creatinine 0.81 Est GFR ( Amer) > 60 Est GFR (Non-Af Amer) > 60 Glucose 140 H Calcium 9.5 06/10/17 06/10/17 06/11/17 22:55 22:55 06:53 Creatine Kinase 42 41 CK-MB (CK-2) 3.56 Troponin I 0.382 NT-Pro-B Natriuret Pep 06/11/17 06/12/17 06:53 05:44 Creatine Kinase CK-MB (CK-2) 3.10 Troponin I 0.312 NT-Pro-B Natriuret Pep 9980 H Impressions: Chest/Abdomen CTA 06/10/17 19:09 IMPRESSION: NORMAL CTA OF THE CHEST. NO PULMONARY EMBOLI. CHRONIC INTERSTITIAL SCARRING. MODERATE LEFT PLEURAL EFFUSION AND SMALL RIGHT PLEURAL EFFUSION. Chest X-Ray 06/12/17 10:05 IMPRESSION: Trace right, small left pleural effusion unchanged from 06/11/2017, . Persistent left lower lobe consolidation atelectasis versus pneumonia Assessment & Plan - Diagnosis (1) Acute and chronic respiratory failure ([id number]) Qualifiers: Respiratory failure complication: hypoxia and hypercapnia Qualified Code(s) : J96.21 - Acute and chronic respiratory failure with hypoxia; J96.22 - Acute and chronic respiratory failure with hypercapnia Is this a current diagnosis for this admission?: Yes (2) Atrial fibrillation Qualifiers: Atrial fibrillation type: chronic Qualified Code(s): I48.2 - Chronic atrial fibrillation Is this a current diagnosis for this admission?: Yes Plan: Stable at this time (3) COPD with exacerbation Is this a current diagnosis for this admission?: Yes Plan: The above patient has failed BiPAP. This patient would benefit from noninvasive mechanical ventilation via the trilogy AVAPS/AE and faster responding AVAPS rates. The trilogy is able to provide a target tidal volume and also adjusting the EPAP pressures to maintain a patent airway as well as an oral backup rate this machine will help improve PaCO2 levels. The severity of the patient's condition will lead to future hospitalizations and readmissions as well as life-threatening situations without the use of this device trilogy home vent needed for hypercapnic respiratory failure. Family medical to follow for trilogy set up. (4) Pleural effusion Is this a current diagnosis for this admission?: Yes Plan: Slightly improved (5) Interstitial lung disease Is this a current diagnosis for this admission?: Yes (6) Congestive heart failure (CHF) Qualifiers: Congestive heart failure type: diastolic Congestive heart failure chronicity: acute on chronic Qualified Code(s): I50.33 - Acute on chronic diastolic (congestive) heart failure Is this a current diagnosis for this admission?: Yes (7) Tobacco abuse Is this a current diagnosis for this admission?: Yes
[2017-06-13] MEDS: DILTIAZEM HCL 60 MG TABLET PO SCH (18:02)
[2017-06-13] MEDS: LEVOFLOXACIN 250 MG/D5W RTU 250 MG/50 ML RTUPB IV SCH (18:04)
[2017-06-13] MEDS: ATORVASTATIN CALCIUM 20 MG TABLET PO SCH (22:16)
[2017-06-13] MEDS ORDERED: DOCUSATE SODIUM 100 MG CAPSULE PO PRN (23:04)
[2017-06-14] MEDS: LEVALBUTEROL HCL NEB 1.25 MG/3 ML AMPUL NEB SCH ×7 (00:02→23:58)
[2017-06-14] MEDS: DILTIAZEM HCL 60 MG TABLET PO SCH ×5 (00:05→21:33)
[2017-06-14] MEDS: OXYCODONE-ACETAMINOPHEN 5-325 MG TABLET PO PRN ×5 (05:27→21:39)
[2017-06-14 05:46] LABS: ANION GAP 7 (5-19); BLOOD UREA NITROGEN 27 mg/dL (7-20); CALCIUM 9.5 mg/dL (8.4-10.2); CARBON DIOXIDE 38 mmol/L (22-30); CHLORIDE 91 mmol/L (98-107); CREATININE RESULT 1.07 mg/dL (0.52-1.25); GLUCOSE 165 mg/dL (75-110); POTASSIUM 3.6 mmol/L (3.6-5.0); SODIUM 135.8 mmol/L (137-145)
[2017-06-14] MEDS ORDERED: PREDNISONE 20 MG TABLET PO SCH (10:00)
[2017-06-14] MEDS: NICOTINE 21 MG/24 HR PATCH.TD24 TD SCH (10:13)
[2017-06-14] MEDS: ACETAZOLAMIDE 500 MG CAPSULE.SA PO SCH (10:15)
[2017-06-14] MEDS: METOPROLOL SUCCINATE 25 MG TAB.SR.24H PO SCH (10:15)
[2017-06-14] MEDS: LEVOFLOXACIN 250 MG TABLET PO SCH (17:49)
--- NOTE | 2017-06-14 18:33 | PDOC PROGRESS REPORT ---
Subjective Progress Note for:: 06/14/17 Subjective:: No chest pain, palpitation, PND, or orthopnea. No abdominal pain, nausea or vomiting. No fever or chills. Remain on supplemental oxygen at 2l/min. Physical Exam Vital Signs: Temp Pulse Resp BP Pulse Ox 97.7 F 59 L 20 127/45 H 97 06/14/17 16:12 06/14/17 16:12 06/14/17 16:12 06/14/17 16:12 06/14/17 16:12 Intake & Output 06/13/17 06/14/17 06/15/17 06:59 06:59 06:59 Intake Total 8959 1436 118 Output Total 1505 2650 260 Balance 7454 -1214 -142 Weight 48.7 kg 46.5 kg Physical Exam: General appearance: PRESENT: no acute distress, cooperative Head exam: PRESENT: atraumatic, normocephalic Eye exam: PRESENT: conjunctiva pink, EOMI, PERRLA. ABSENT: scleral icterus Mouth exam: PRESENT: moist Teeth exam: PRESENT: edentulous - dentures in use Respiratory exam: PRESENT: clear to auscultation leslie, decreased breath sounds - at lung bases Cardiovascular exam: PRESENT: RRR. ABSENT: diastolic murmur, rubs, systolic murmur GI/Abdominal exam: PRESENT: normal bowel sounds, soft. ABSENT: distended, guarding, mass, organomegaly, rebound, tenderness Extremities exam: PRESENT: Arthritis related to multiple joint involvement with arthritis. ABSENT: pedal edema. Neurological exam: PRESENT: alert, awake, oriented to person, oriented to place , oriented to time, oriented to situation, CN II-XII grossly intact. ABSENT: motor sensory deficit Psychiatric exam: PRESENT: appropriate affect, normal mood. ABSENT: homicidal ideation, suicidal ideation Skin exam: PRESENT: dry, intact, warm. ABSENT: cyanosis, rash Results Laboratory Results: 06/12/17 05:44 06/14/17 04:52 06/14/17 04:52 Sodium 135.8 L Potassium 3.6 Chloride 91 L Carbon Dioxide 38 H Anion Gap 7 BUN 27 H Creatinine 1.07 Est GFR ( Amer) > 60 Est GFR (Non-Af Amer) 50 L Glucose 165 H Calcium 9.5 09/03/17 09/03/17 09/04/17 22:55 22:55 06:53 Creatine Kinase 42 41 CK-MB (CK-2) 3.56 Troponin I 0.382 NT-Pro-B Natriuret Pep 06/11/17 06/12/17 06:53 05:44 Creatine Kinase CK-MB (CK-2) 3.10 Troponin I 0.312 NT-Pro-B Natriuret Pep 9980 H Impressions: Chest/Abdomen CTA 06/10/17 19:09 IMPRESSION: NORMAL CTA OF THE CHEST. NO PULMONARY EMBOLI. CHRONIC INTERSTITIAL SCARRING. MODERATE LEFT PLEURAL EFFUSION AND SMALL RIGHT PLEURAL EFFUSION. Chest X-Ray 06/12/17 10:05 IMPRESSION: Trace right, small left pleural effusion unchanged from 06/11/2017, . Persistent left lower lobe consolidation atelectasis versus pneumonia Assessment & Plan - Diagnosis (1) Acute and chronic respiratory failure ([id number]) Qualifiers: Respiratory failure complication: hypoxia and hypercapnia Qualified Code(s) : J96.21 - Acute and chronic respiratory failure with hypoxia; J96.22 - Acute and chronic respiratory failure with hypercapnia Is this a current diagnosis for this admission?: Yes (2) Congestive heart failure (CHF) Qualifiers: Congestive heart failure type: diastolic Congestive heart failure chronicity: acute on chronic Qualified Code(s): I50.33 - Acute on chronic diastolic (congestive) heart failure Is this a current diagnosis for this admission?: Yes (3) Atrial fibrillation Qualifiers: Atrial fibrillation type: chronic Qualified Code(s): I48.2 - Chronic atrial fibrillation Is this a current diagnosis for this admission?: Yes (4) Tobacco abuse Is this a current diagnosis for this admission?: Yes (5) COPD (chronic obstructive pulmonary disease) Qualifiers: COPD type: COPD with acute exacerbation Qualified Code(s): J44.1 - Chronic obstructive pulmonary disease with (acute) exacerbation Is this a current diagnosis for this admission?: Yes (6) Pulmonary hypertension Is this a current diagnosis for this admission?: Yes - Time Time Spent with patient: 25-34 minutes Medications reviewed and adjusted accordingly: Yes Anticipated discharge: Home with Homehealth - Inpatient Certification Based on my medical assessment, after consideration of the patient's comorbidities, presenting symptoms, or acuity I expect that the services needed warrant INPATIENT care.: Yes I certify that my determination is in accordance with my understanding of Medicare's requirements for reasonable and necessary INPATIENT services [42 CFR 412.3e].: Yes Medical Necessity: Need Close Monitoring Due to Risk of Patient Decompensation, Need For Continuous Telemetry Monitoring, Need for Nebulizer Therapy and Monitoring of Response, Risk of Complication if Not Cared For in Hospital Post Hospital Care: D/C Nutrition Worker Documentation - Plan Summary Plan Summary: Continue all current medication management. I did discuss with her possible discharge in next 24 hours if she continue to remain clinically stable.
--- NOTE | 2017-06-14 19:21 | PDOC PROGRESS REPORT ---
Subjective Progress Note for:: 06/14/17 Subjective:: Patient seems to be doing better. Pt is denying any chest arm or neck discomfort. Patient denying any PND, orthopnea. Patient denied any sustained palpitations, dizziness, syncope, near syncope. Patient denying any fever chills. Patient denying any other significant discomfort. Patient is much improved since admission. Patient is currently oxygen supplementation therapy. Patient is maintaining chronic atrial fibrillation. Heart rate well controlled. Review of systems: Rest review of systems negative. Medications: Medications have been reviewed. Physical Exam Vital Signs: Temp Pulse Resp BP Pulse Ox 97.7 F 59 L 20 127/45 H 97 06/14/17 16:12 06/14/17 16:12 06/14/17 16:12 06/14/17 16:12 06/14/17 16:12 Intake & Output 06/13/17 06/14/17 06/15/17 06:59 06:59 06:59 Intake Total 8959 1436 218 Output Total 1505 2650 880 Balance 0007 -1214 662 Weight 48.7 kg 46.5 kg Exam: GENERAL: well-nourished and in no acute distress. Alert and oriented x3 HEAD: Atraumatic, normocephalic. EYES: Pupils equal round and reactive to light, extraocular movements intact, sclera anicteric, conjunctiva are normal. Decreased vision left eye. ENT: TMs normal, nares patent, oropharynx clear without exudates. Moist mucous membranes. No oral ulcerations or bleeding gums noted NECK: supple without lymphadenopathy. Trachea is central. No cervical or axillary lymphadenopathy noted. Carotids are 2+, JVD WNL LUNGS: Respiration seems nonlabored, no significant accessory muscle action noted. Bibasilar fine crackles and wheezing noted. These are however significantly improved. Mild dullness noted left base. CHEST: Palpation of the chest wall shows no significant chest wall tenderness. No other significant abnormalities noted. 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 ABDOMEN: Soft, no significant tenderness appreciated, normoactive bowel sounds. No guarding, no rebound. No rigidity noted . No masses appreciated. EXTREMITIES: Pedal pulses are 1-2+, no calf tenderness noted. No clubbing or cyanosis.trace to 1+ pedal edema noted NEUROLOGICAL: Focused neurological exam showed no significant neurologic deficit. Normal speech, no focal weakness appreciated. PSYCH: Normal mood, normal affect. Judgment and insight within normal limits. SKIN: No significant ecchymosis, rash, ulcerations or signs of pruritus noted. MUSCULOSKELETAL EXAM: No significant joint swelling noted. Results Laboratory Results: 06/12/17 05:44 06/14/17 04:52 06/14/17 04:52 Sodium 135.8 L Potassium 3.6 Chloride 91 L Carbon Dioxide 38 H Anion Gap 7 BUN 27 H Creatinine 1.07 Est GFR ( Amer) > 60 Est GFR (Non-Af Amer) 50 L Glucose 165 H Calcium 9.5 06/10/17 06/10/17 06/11/17 22:55 22:55 06:53 Creatine Kinase 42 41 CK-MB (CK-2) 3.56 Troponin I 0.382 NT-Pro-B Natriuret Pep 06/11/17 06/12/17 06:53 05:44 Creatine Kinase CK-MB (CK-2) 3.10 Troponin I 0.312 NT-Pro-B Natriuret Pep 9980 H EKG Comments: Telemetry strips shows atrial fibrillation with controlled ventricular response. Impressions: Chest/Abdomen CTA 06/10/17 19:09 IMPRESSION: NORMAL CTA OF THE CHEST. NO PULMONARY EMBOLI. CHRONIC INTERSTITIAL SCARRING. MODERATE LEFT PLEURAL EFFUSION AND SMALL RIGHT PLEURAL EFFUSION. Chest X-Ray 06/12/17 10:05 IMPRESSION: Trace right, small left pleural effusion unchanged from 06/11/2017, . Persistent left lower lobe consolidation atelectasis versus pneumonia Assessment & Plan - Diagnosis (1) Acute and chronic respiratory failure ([id number]) Qualifiers: Respiratory failure complication: hypoxia and hypercapnia Qualified Code(s) : J96.21 - Acute and chronic respiratory failure with hypoxia; J96.22 - Acute and chronic respiratory failure with hypercapnia Is this a current diagnosis for this admission?: Yes (2) COPD with exacerbation Is this a current diagnosis for this admission?: Yes (3) Congestive heart failure (CHF) Qualifiers: Congestive heart failure type: diastolic Congestive heart failure chronicity: acute on chronic Qualified Code(s): I50.33 - Acute on chronic diastolic (congestive) heart failure Is this a current diagnosis for this admission?: Yes (4) Tobacco abuse Is this a current diagnosis for this admission?: Yes (5) Chronic kidney disease Qualifiers: Chronic kidney disease stage: stage 3 (moderate) Qualified Code(s): N18.3 - Chronic kidney disease, stage 3 (moderate) Is this a current diagnosis for this admission?: Yes (6) Elevated troponin I level Is this a current diagnosis for this admission?: Yes (7) Atrial fibrillation Qualifiers: Atrial fibrillation type: chronic Qualified Code(s): I48.2 - Chronic atrial fibrillation Is this a current diagnosis for this admission?: Yes (8) CO2 narcosis Is this a current diagnosis for this admission?: Yes (9) Pulmonary hypertension Is this a current diagnosis for this admission?: Yes - Notes Notes: Arterial blood gases reviewed. Telemetry strips reviewed. Patient still needing significant oxygen supplementation. Acute on chronic respiratory failure: Patient noted to have severe COPD and both hypoxemic and hypercarbic respiratory failure. Agree with oxygen supplementation. Patient needing intermittent noninvasive ventilatory support. Currently is stable on supplemental oxygen. COPD with exacerbation: Currently is stable being managed with bronchodilator and steroids. Patient has been advised to quit smoking. Congestive heart failure: Possibly diastolic and right heart failure combined. Agree with IV Lasix. Adequate therapy of COPD would help. 2D echo results reviewed. It shows severe pulmonary hypertension, grade 3 diastolic dysfunction but relatively well-preserved LVEF. Chronic kidney disease: Continue to monitor renal functions. Atrial fibrillation: Continue chronic Coumadin therapy, keep patient PT with INR in therapeutic range.. Abnormal troponin I: Most likely related to respiratory distress and CHF. Troponin I peaked at 0.38. At this point and ischemia workup is not planned but could be considered prior to discharge or as an outpatient once patient respiratory status improves and CHF is resolved. CO2 narcosis: This was noted on presentation. Currently improved. Pulmonary hypertension: Noted to be severe based on echocardiogram. Most likely related to severe COPD, diastolic dysfunction. Start patient on Cardizem for rate control and possibly there might be some help with pulmonary hypertension. - Time Time with patient: 15-25 minutes - CODE STATUS was discussed, patient remains full code. Surrogate decision-maker unchanged. Multiple medical problems were addressed. More than 50% of the time spent coordinating care, discussing management plans with involved caregivers. Management plans discussed with involved personnels. Medical decision making was of moderate to high complexity , patient's has multiple comorbidities.
[2017-06-14] MEDS: ATORVASTATIN CALCIUM 20 MG TABLET PO SCH (21:33)
[2017-06-14] MEDS: LATANOPROST 0.005% OPH SOLN 2.5 ML OU SCH (21:43)
[2017-06-14] MEDS ORDERED: LANSOPRAZOLE 30 MG TAB.RAP.DR PO ONE (23:15)
[2017-06-15] MEDS: LEVALBUTEROL HCL NEB 1.25 MG/3 ML AMPUL NEB SCH ×5 (04:07→20:04)
[2017-06-15] MEDS: DILTIAZEM HCL 60 MG TABLET PO SCH ×3 (05:19→21:40)
[2017-06-15] MEDS: LANSOPRAZOLE 30 MG TAB.RAP.DR PO SCH (05:19)
[2017-06-15] MEDS: OXYCODONE-ACETAMINOPHEN 5-325 MG TABLET PO PRN ×5 (05:22→21:52)
[2017-06-15 05:32] LABS: PROTHROMBIN TIME 15.6 SEC (11.4-15.4)
[2017-06-15] MEDS: NICOTINE 21 MG/24 HR PATCH.TD24 TD SCH (09:16)
[2017-06-15] MEDS: ACETAZOLAMIDE 500 MG CAPSULE.SA PO SCH (09:17)
[2017-06-15] MEDS: PREDNISONE 10 MG TABLET PO SCH (09:17)
[2017-06-15] MEDS: METOPROLOL SUCCINATE 25 MG TAB.SR.24H PO SCH (09:18)
--- NOTE | 2017-06-15 15:54 | PDOC PROGRESS REPORT ---
Subjective Progress Note for:: 06/15/17 Subjective:: Remain on supplemental oxygen at 2l/min. and BIPAP usage at present as suggested by machine assembler for puller over whole sleeping. No chest pain, palpitation, PND, or orthopnea. No abdominal pain, nausea or vomiting. No fever or chills. Physical Exam Vital Signs: Temp Pulse Resp BP Pulse Ox 97.8 F 51 L 13 120/51 L 98 06/15/17 03:50 06/15/17 11:31 06/15/17 11:44 06/15/17 07:39 06/15/17 11:44 Intake & Output 06/14/17 06/15/17 06/16/17 06:59 06:59 06:59 Intake Total 1436 645 Output Total 2650 1680 Balance -1214 -1035 Weight 46.5 kg 46.3 kg Physical Exam: Patient is currently on BiPAP machine support for hypercapnia management. General appearance: PRESENT: no acute distress, cooperative Head exam: PRESENT: atraumatic, normocephalic Eye exam: PRESENT: conjunctiva pink, EOMI, PERRLA. ABSENT: scleral icterus Mouth exam: PRESENT: moist Teeth exam: PRESENT: edentulous - dentures in use Respiratory exam: PRESENT: clear to auscultation leslie, decreased breath sounds - at lung bases Cardiovascular exam: PRESENT: RRR. ABSENT: diastolic murmur, rubs, systolic murmur GI/Abdominal exam: PRESENT: normal bowel sounds, soft. ABSENT: distended, guarding, mass, organomegaly, rebound, tenderness Extremities exam: PRESENT: Arthritis related to multiple joint involvement with arthritis. ABSENT: pedal edema. Neurological exam: PRESENT: alert, awake, oriented to person, oriented to place , oriented to time, oriented to situation, CN II-XII grossly intact. ABSENT: motor sensory deficit Psychiatric exam: PRESENT: appropriate affect, normal mood. ABSENT: homicidal ideation, suicidal ideation Skin exam: PRESENT: dry, intact, warm. ABSENT: cyanosis, rash Results Laboratory Results: 06/12/17 05:44 06/14/17 04:52 06/10/17 06/10/17 06/11/17 22:55 22:55 06:53 Creatine Kinase 42 41 CK-MB (CK-2) 3.56 Troponin I 0.382 NT-Pro-B Natriuret Pep 06/11/17 06/12/17 06:53 05:44 Creatine Kinase CK-MB (CK-2) 3.10 Troponin I 0.312 NT-Pro-B Natriuret Pep 9980 H Impressions: Chest/Abdomen CTA 06/10/17 19:09 IMPRESSION: NORMAL CTA OF THE CHEST. NO PULMONARY EMBOLI. CHRONIC INTERSTITIAL SCARRING. MODERATE LEFT PLEURAL EFFUSION AND SMALL RIGHT PLEURAL EFFUSION. Chest X-Ray 06/12/17 10:05 IMPRESSION: Trace right, small left pleural effusion unchanged from 06/11/2017, . Persistent left lower lobe consolidation atelectasis versus pneumonia Assessment & Plan - Diagnosis (1) Acute and chronic respiratory failure ([id number]) Qualifiers: Respiratory failure complication: hypoxia and hypercapnia Qualified Code(s) : J96.21 - Acute and chronic respiratory failure with hypoxia; J96.22 - Acute and chronic respiratory failure with hypercapnia Is this a current diagnosis for this admission?: Yes (2) Congestive heart failure (CHF) Qualifiers: Congestive heart failure type: diastolic Congestive heart failure chronicity: acute on chronic Qualified Code(s): I50.33 - Acute on chronic diastolic (congestive) heart failure Is this a current diagnosis for this admission?: Yes (3) Atrial fibrillation Qualifiers: Atrial fibrillation type: chronic Qualified Code(s): I48.2 - Chronic atrial fibrillation Is this a current diagnosis for this admission?: Yes (4) Tobacco abuse Is this a current diagnosis for this admission?: Yes (5) COPD (chronic obstructive pulmonary disease) Qualifiers: COPD type: COPD with acute exacerbation Qualified Code(s): J44.1 - Chronic obstructive pulmonary disease with (acute) exacerbation Is this a current diagnosis for this admission?: Yes (6) Pulmonary hypertension Is this a current diagnosis for this admission?: Yes - Time Time Spent with patient: 25-34 minutes Medications reviewed and adjusted accordingly: Yes Anticipated discharge: Home with Homehealth Within: Other - Inpatient Certification Based on my medical assessment, after consideration of the patient's comorbidities, presenting symptoms, or acuity I expect that the services needed warrant INPATIENT care.: Yes I certify that my determination is in accordance with my understanding of Medicare's requirements for reasonable and necessary INPATIENT services [42 CFR 412.3e].: Yes Medical Necessity: Need Close Monitoring Due to Risk of Patient Decompensation, Need For Continuous Telemetry Monitoring, Need for Nebulizer Therapy and Monitoring of Response, Risk of Complication if Not Cared For in Hospital Post Hospital Care: D/C Rail Bonder Documentation - Plan Summary Plan Summary: Start on Diltiazem CD 120 mg po daily. Maintain on all other current medication management. Obtain CBC, CMP in AM. Encourage ambulation on the floor. Engage PT service.
[2017-06-15] MEDS: LEVOFLOXACIN 250 MG TABLET PO SCH (17:13)
[2017-06-15] MEDS: LATANOPROST 0.005% OPH SOLN 2.5 ML OU SCH (21:40)
[2017-06-15] MEDS: ATORVASTATIN CALCIUM 20 MG TABLET PO SCH (21:42)
[2017-06-16] MEDS: LEVALBUTEROL HCL NEB 1.25 MG/3 ML AMPUL NEB SCH ×7 (00:01→23:23)
[2017-06-16] MEDS: LANSOPRAZOLE 30 MG TAB.RAP.DR PO SCH (05:56)
[2017-06-16] MEDS: OXYCODONE-ACETAMINOPHEN 5-325 MG TABLET PO PRN ×3 (05:58→23:17)
[2017-06-16 06:02] LABS: ABSOLUTE LYMPHOCYTES (AUTO) 1.4 10^3/uL (0.5-4.7); ABSOLUTE MONOCYTES (AUTO) 0.8 10^3/uL (0.1-1.4); ABSOLUTE NEUT (AUTO) 6.8 10^3/uL (1.7-8.2); BASOPHILS % (AUTO) 0.2 % (0-2); EOSINOPHILS % (AUTO) 0.3 % (0-6); HEMOGLOBIN 12.8 g/dL (12.0-15.5); HGB HCT DIFFERENCE -2.6; LYMPHOCYTES % (AUTO) 15.8 % (13-45); MEAN CORPUSCULAR HEMOGLOBIN 29.6 pg (27.0-33.4); MEAN CORPUSCULAR HGB CONC 31.1 g/dL (32.0-36.0); MEAN CORPUSCULAR VOLUME 95 fl (80-97); MONOCYTES % (AUTO) 8.7 % (3-13); RED BLOOD COUNT 4.32 10^6/uL (3.72-5.28); RED CELL DISTRIBUTION WIDTH 17.9 % (11.5-14.0); WHITE BLOOD COUNT 9.1 10^3/uL (4.0-10.5)
[2017-06-16 06:08] LABS: PROTHROMBIN TIME 14.9 SEC (11.4-15.4)
[2017-06-16 06:15] LABS: ALANINE AMINOTRANSFERASE 33 U/L (9-52); ALBUMIN 3.1 g/dL (3.5-5.0); ALKALINE PHOSPHATASE 72 U/L (38-126); ANION GAP 6 (5-19); ASPARTATE AMINO TRANSFERASE 32 U/L (14-36); BILIRUBIN,DIRECT 0.5 mg/dL (0.0-0.4); BLOOD UREA NITROGEN 19 mg/dL (7-20); CALCIUM 9.4 mg/dL (8.4-10.2); CARBON DIOXIDE 33 mmol/L (22-30); CHLORIDE 101 mmol/L (98-107); CREATININE RESULT 0.81 mg/dL (0.52-1.25); GLUCOSE 89 mg/dL (75-110); POTASSIUM 4.2 mmol/L (3.6-5.0); TOTAL PROTEIN 5.9 g/dL (6.3-8.2)
[2017-06-16] MEDS: NICOTINE 21 MG/24 HR PATCH.TD24 TD SCH (09:49)
[2017-06-16] MEDS: METOPROLOL SUCCINATE 25 MG TAB.SR.24H PO SCH (09:49)
[2017-06-16] MEDS: DILTIAZEM HCL 120 MG CAP.SR.24H PO SCH (09:50)
[2017-06-16] MEDS: PREDNISONE 10 MG TABLET PO SCH (09:50)
[2017-06-16] MEDS: ACETAZOLAMIDE 500 MG CAPSULE.SA PO SCH (09:50)
--- NOTE | 2017-06-16 12:13 | PDOC PROGRESS REPORT ---
Subjective Progress Note for:: 06/15/17 Subjective:: Patient seems to be doing better. Pt is denying any chest arm or neck discomfort. Patient denying any PND, orthopnea. Patient denied any sustained palpitations, dizziness, syncope, near syncope. Patient denying any fever chills. Patient denying any other significant discomfort. Patient is much improved since admission. Patient is currently oxygen supplementation therapy. Patient is maintaining chronic atrial fibrillation. Heart rate well controlled. Review of systems: Rest review of systems negative. Medications: Medications have been reviewed. Physical Exam Vital Signs: Temp Pulse Resp BP Pulse Ox 97.9 F 76 20 144/61 H 100 06/15/17 20:12 06/15/17 20:12 06/15/17 20:12 06/15/17 20:12 06/15/17 20:12 Intake & Output 06/14/17 06/15/17 06/16/17 06:59 06:59 06:59 Intake Total 1436 645 500 Output Total 2650 1680 Balance -1214 -1035 500 Weight 46.5 kg 46.3 kg Exam: GENERAL: Thin built and in no acute distress. Alert and oriented x3 HEAD: Atraumatic, normocephalic. EYES: Pupils equal round and reactive to light, extraocular movements intact, sclera anicteric, conjunctiva are normal. ENT: TMs normal, nares patent, oropharynx clear without exudates. Moist mucous membranes. No oral ulcerations or bleeding gums noted NECK: supple without lymphadenopathy. Trachea is central. No cervical or axillary lymphadenopathy noted. Carotids are 2+, JVD WNL LUNGS: Respiration seems nonlabored, no significant accessory muscle action noted. Bilateral mild wheezing and bibasilar crackles noted. No dullness noted CHEST: Palpation of the chest wall shows no significant chest wall tenderness. No other significant abnormalities noted. 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 ABDOMEN: Soft, no significant tenderness appreciated, normoactive bowel sounds. No guarding, no rebound. No rigidity noted . No masses appreciated. EXTREMITIES: Pedal pulses are 1-2+, no calf tenderness noted. No clubbing or cyanosis.trace pedal edema noted NEUROLOGICAL: Focused neurological exam showed no significant neurologic deficit. Normal speech, no focal weakness appreciated. PSYCH: Normal mood, normal affect. Judgment and insight within normal limits. SKIN: No significant ecchymosis, rash, ulcerations or signs of pruritus noted. MUSCULOSKELETAL EXAM: No significant joint swelling noted. Results Laboratory Results: 06/12/17 05:44 06/14/17 04:52 06/10/17 20:11 Blood Blood Culture - Final NO GROWTH IN 5 DAYS 06/10/17 06/10/17 06/11/17 22:55 22:55 06:53 Creatine Kinase 42 41 CK-MB (CK-2) 3.56 Troponin I 0.382 NT-Pro-B Natriuret Pep 06/11/17 06/12/17 06:53 05:44 Creatine Kinase CK-MB (CK-2) 3.10 Troponin I 0.312 NT-Pro-B Natriuret Pep 9980 H EKG Comments: Atrial fibrillation with controlled ventricular response Impressions: Chest/Abdomen CTA 06/10/17 19:09 IMPRESSION: NORMAL CTA OF THE CHEST. NO PULMONARY EMBOLI. CHRONIC INTERSTITIAL SCARRING. MODERATE LEFT PLEURAL EFFUSION AND SMALL RIGHT PLEURAL EFFUSION. Chest X-Ray 06/12/17 10:05 IMPRESSION: Trace right, small left pleural effusion unchanged from 06/11/2017, . Persistent left lower lobe consolidation atelectasis versus pneumonia Assessment & Plan - Diagnosis (1) Acute and chronic respiratory failure ([id number]) Qualifiers: Respiratory failure complication: hypoxia and hypercapnia Qualified Code(s) : J96.21 - Acute and chronic respiratory failure with hypoxia; J96.22 - Acute and chronic respiratory failure with hypercapnia Is this a current diagnosis for this admission?: Yes (2) COPD with exacerbation Is this a current diagnosis for this admission?: Yes (3) Congestive heart failure (CHF) Qualifiers: Congestive heart failure type: diastolic Congestive heart failure chronicity: acute on chronic Qualified Code(s): I50.33 - Acute on chronic diastolic (congestive) heart failure Is this a current diagnosis for this admission?: Yes (4) Tobacco abuse Is this a current diagnosis for this admission?: Yes (5) Chronic kidney disease Qualifiers: Chronic kidney disease stage: stage 3 (moderate) Qualified Code(s): N18.3 - Chronic kidney disease, stage 3 (moderate) Is this a current diagnosis for this admission?: Yes (6) Elevated troponin I level Is this a current diagnosis for this admission?: Yes (7) Atrial fibrillation Qualifiers: Atrial fibrillation type: chronic Qualified Code(s): I48.2 - Chronic atrial fibrillation Is this a current diagnosis for this admission?: Yes (8) CO2 narcosis Is this a current diagnosis for this admission?: Yes (9) Pulmonary hypertension Is this a current diagnosis for this admission?: Yes - Notes Notes: Acute on chronic respiratory failure: Patient noted to have severe COPD and both hypoxemic and hypercarbic respiratory failure. Agree with oxygen supplementation. Patient needing intermittent noninvasive ventilatory support. Currently is stable on supplemental oxygen. COPD with exacerbation: Currently is stable being managed with bronchodilator and steroids. Patient has been advised to quit smoking. Congestive heart failure: Possibly diastolic and right heart failure combined. Continue diuretic therapy. Adequate therapy of COPD would help. 2D echo results reviewed. It shows severe pulmonary hypertension, grade 3 diastolic dysfunction but relatively well-preserved LVEF. Chronic kidney disease: Continue to monitor renal functions. Atrial fibrillation: Continue chronic Coumadin therapy, keep patient PT with INR in therapeutic range.. Abnormal troponin I: Most likely related to respiratory distress and CHF. Troponin I peaked at 0.38. At this point and ischemia workup is not planned but could be considered prior to discharge or as an outpatient once patient respiratory status improves. Patient however seems to have severe COPD and may not be a candidate for bypass surgery etc. CO2 narcosis: This was noted on presentation. Currently improved. Pulmonary hypertension: Noted to be severe based on echocardiogram. Most likely related to severe COPD, diastolic dysfunction. Start patient on Cardizem for rate control and possibly there might be some help with pulmonary hypertension. - Time Time with patient: 15-25 minutes - CODE STATUS was discussed, patient remains full code. Surrogate decision-maker unchanged. Multiple medical problems were addressed. More than 50% of the time spent coordinating care, discussing management plans with involved caregivers. Management plans discussed with involved personnels. Medical decision making was of moderate to high complexity , patient's has multiple comorbidities. Medications reviewed and adjusted accordingly: Yes
--- NOTE | 2017-06-16 12:17 | PDOC PROGRESS REPORT ---
Subjective Progress Note for:: 06/16/17 Subjective:: Patient seems to be doing better. Pt is denying any chest arm or neck discomfort. Patient is still has shortness of breath. Patient denying any PND , orthopnea. Patient denied any sustained palpitations, dizziness, syncope, near syncope. Patient denying any fever chills. Patient denying any other significant discomfort. Patient is much improved since admission. Patient is currently oxygen supplementation therapy. Patient is maintaining chronic atrial fibrillation. Heart rate well controlled. Review of systems: Rest review of systems negative. Medications: Medications have been reviewed. Physical Exam Vital Signs: Temp Pulse Resp BP Pulse Ox 98.4 F 99 17 142/58 H 100 06/16/17 08:18 06/16/17 09:03 06/16/17 09:03 06/16/17 08:18 06/16/17 08:18 Intake & Output 06/15/17 06/16/17 06/17/17 06:59 06:59 06:59 Intake Total 645 882 Output Total 1680 750 Balance -1035 132 Weight 46.3 kg 45.1 kg Exam: GENERAL: Thin built with muscle mass loss and in no acute distress. Alert and oriented x3 HEAD: Atraumatic, normocephalic. EYES: Pupils equal round and reactive to light, extraocular movements intact, sclera anicteric, conjunctiva are normal. ENT: TMs normal, nares patent, oropharynx clear without exudates. Moist mucous membranes. No oral ulcerations or bleeding gums noted NECK: supple without lymphadenopathy. Trachea is central. No cervical or axillary lymphadenopathy noted. Carotids are 2+, JVD WNL LUNGS: Respiration seems nonlabored, no significant accessory muscle action noted. Bilateral mild wheezing and crackles noted, no dullness noted CHEST: Palpation of the chest wall shows no significant chest wall tenderness. No other significant abnormalities noted. HEART: [place] PETAL CUTTER, No PSH, 1/6 [place] aortic area, 1/6 barragan systolic murmur mitral area, no rubs, no gallops. ABDOMEN: Soft, no significant tenderness appreciated, normoactive bowel sounds. No guarding, no rebound. No rigidity noted . No masses appreciated. EXTREMITIES: Pedal pulses are 1-2+, no calf tenderness noted. No clubbing or cyanosis.trace pedal edema noted NEUROLOGICAL: Focused neurological exam showed no significant neurologic deficit. Normal speech, no focal weakness appreciated. PSYCH: Normal mood, normal affect. Judgment and insight within normal limits. SKIN: No significant ecchymosis, rash, ulcerations or signs of pruritus noted. MUSCULOSKELETAL EXAM: No significant joint swelling noted. Results Laboratory Results: 06/16/17 05:44 06/16/17 05:44 06/16/17 06/16/17 05:44 05:44 WBC 9.1 RBC 4.32 Hgb 12.8 Hct 41.0 MCV 95 MCH 29.6 MCHC 31.1 L RDW 17.9 H Plt Count 167 Seg Neutrophils % 75.0 Lymphocytes % 15.8 Monocytes % 8.7 Eosinophils % 0.3 Basophils % 0.2 Absolute Neutrophils 6.8 Absolute Lymphocytes 1.4 Absolute Monocytes 0.8 Absolute Eosinophils 0.0 Absolute Basophils 0.0 Sodium 140.0 Potassium 4.2 Chloride 101 Carbon Dioxide 33 H Anion Gap 6 BUN 19 Creatinine 0.81 Est GFR ( Amer) > 60 Est GFR (Non-Af Amer) > 60 Glucose 89 Calcium 9.4 Total Bilirubin 1.0 AST 32 ALT 33 Alkaline Phosphatase 72 Total Protein 5.9 L Albumin 3.1 L 06/10/17 22:55 Blood Blood Culture - Final NO GROWTH IN 5 DAYS 06/10/17 20:11 Blood Blood Culture - Final NO GROWTH IN 5 DAYS 06/10/17 06/10/17 06/11/17 22:55 22:55 06:53 Creatine Kinase 42 41 CK-MB (CK-2) 3.56 Troponin I 0.382 NT-Pro-B Natriuret Pep 06/11/17 06/12/17 06:53 05:44 Creatine Kinase CK-MB (CK-2) 3.10 Troponin I 0.312 NT-Pro-B Natriuret Pep 9980 H EKG Comments: Atrial fibrillation with controlled ventricular response Impressions: Chest/Abdomen CTA 06/10/17 19:09 IMPRESSION: NORMAL CTA OF THE CHEST. NO PULMONARY EMBOLI. CHRONIC INTERSTITIAL SCARRING. MODERATE LEFT PLEURAL EFFUSION AND SMALL RIGHT PLEURAL EFFUSION. Chest X-Ray 06/12/17 10:05 IMPRESSION: Trace right, small left pleural effusion unchanged from 06/11/2017, . Persistent left lower lobe consolidation atelectasis versus pneumonia Assessment & Plan - Diagnosis (1) Acute and chronic respiratory failure ([id number]) Qualifiers: Respiratory failure complication: hypoxia and hypercapnia Qualified Code(s) : J96.21 - Acute and chronic respiratory failure with hypoxia; J96.22 - Acute and chronic respiratory failure with hypercapnia Is this a current diagnosis for this admission?: Yes (2) COPD with exacerbation Is this a current diagnosis for this admission?: Yes (3) Congestive heart failure (CHF) Qualifiers: Congestive heart failure type: diastolic Congestive heart failure chronicity: acute on chronic Qualified Code(s): I50.33 - Acute on chronic diastolic (congestive) heart failure Is this a current diagnosis for this admission?: Yes (4) Tobacco abuse Is this a current diagnosis for this admission?: Yes (5) Chronic kidney disease Qualifiers: Chronic kidney disease stage: stage 3 (moderate) Qualified Code(s): N18.3 - Chronic kidney disease, stage 3 (moderate) Is this a current diagnosis for this admission?: Yes (6) Elevated troponin I level Is this a current diagnosis for this admission?: Yes (7) Atrial fibrillation Qualifiers: Atrial fibrillation type: chronic Qualified Code(s): I48.2 - Chronic atrial fibrillation Is this a current diagnosis for this admission?: Yes (8) CO2 narcosis Is this a current diagnosis for this admission?: Yes (9) Pulmonary hypertension Is this a current diagnosis for this admission?: Yes - Notes Notes: Patient has remained stable from cardiac standpoint. Based on patient's severe comorbid diagnosis, and ischemia workup is not being planned unless patient has significant angina symptoms. Troponin I elevation related to respiratory distress, severe metabolic abnormalities and also severe hypoxemia and hypercarbia. Acute on chronic respiratory failure: Patient noted to have severe COPD and both hypoxemic and hypercarbic respiratory failure. Agree with oxygen supplementation. Patient needing intermittent noninvasive ventilatory support. Currently is stable on supplemental oxygen. COPD with exacerbation: Currently is stable being managed with bronchodilator and steroids. Patient has been advised to quit smoking. Congestive heart failure: Possibly diastolic and right heart failure combined. Continue diuretic therapy. Adequate therapy of COPD would help. 2D echo results reviewed. It shows severe pulmonary hypertension, grade 3 diastolic dysfunction but relatively well-preserved LVEF. Chronic kidney disease: Continue to monitor renal functions. Atrial fibrillation: Continue chronic Coumadin therapy, keep patient PT with INR in therapeutic range.. Abnormal troponin I: Most likely related to respiratory distress and CHF. No ischemia workup planned at this point. Patient to be treated with aggressive risk factor modification and medical management. Patient felt not a candidate for CABG if need arises because of severe COPD. CO2 narcosis: This was noted on presentation. Currently improved. Pulmonary hypertension: Noted to be severe based on echocardiogram. Most likely related to severe COPD, diastolic dysfunction. Continue patient on Cardizem for rate control and possibly there might be some help with pulmonary hypertension. Patient should continue to follow with dental mechanic and intake manager. I am available for cardiology follow-up. Will sign off. Please reconsult if needed. - Time Time with patient: 15-25 minutes - CODE STATUS was discussed, patient remains full code. Surrogate decision-maker unchanged. Multiple medical problems were addressed. More than 50% of the time spent coordinating care, discussing management plans with involved caregivers. Management plans discussed with involved personnels. Medical decision making was of moderate to high complexity , patient's has multiple comorbidities. Will sign off. Please reconsult if needed. Medications reviewed and adjusted accordingly: Yes
--- NOTE | 2017-06-16 15:10 | PDOC PROGRESS REPORT ---
Subjective Progress Note for:: 06/16/17 Subjective:: Patient with very severe COPD, atrial fibrillation, cardiomyopathy she has no new complaints today Physical Exam Vital Signs: Temp Pulse Resp BP Pulse Ox 98.4 F 78 17 142/58 H 100 06/16/17 08:18 06/16/17 13:58 06/16/17 09:03 06/16/17 08:18 06/16/17 08:18 Intake & Output 06/15/17 06/16/17 06/17/17 06:59 06:59 06:59 Intake Total 645 882 Output Total 1680 750 Balance -1035 132 Weight 46.3 kg 45.1 kg General appearance: PRESENT: no acute distress Eye exam: PRESENT: PERRLA Respiratory exam: PRESENT: decreased breath sounds Cardiovascular exam: PRESENT: +S1, +S2 GI/Abdominal exam: PRESENT: soft Neurological exam: PRESENT: alert Results Laboratory Results: 06/16/17 05:44 06/16/17 05:44 06/16/17 06/16/17 05:44 05:44 WBC 9.1 RBC 4.32 Hgb 12.8 Hct 41.0 MCV 95 MCH 29.6 MCHC 31.1 L RDW 17.9 H Plt Count 167 Seg Neutrophils % 75.0 Lymphocytes % 15.8 Monocytes % 8.7 Eosinophils % 0.3 Basophils % 0.2 Absolute Neutrophils 6.8 Absolute Lymphocytes 1.4 Absolute Monocytes 0.8 Absolute Eosinophils 0.0 Absolute Basophils 0.0 Sodium 140.0 Potassium 4.2 Chloride 101 Carbon Dioxide 33 H Anion Gap 6 BUN 19 Creatinine 0.81 Est GFR ( Amer) > 60 Est GFR (Non-Af Amer) > 60 Glucose 89 Calcium 9.4 Total Bilirubin 1.0 AST 32 ALT 33 Alkaline Phosphatase 72 Total Protein 5.9 L Albumin 3.1 L 06/10/17 22:55 Blood Blood Culture - Final NO GROWTH IN 5 DAYS 06/10/17 20:11 Blood Blood Culture - Final NO GROWTH IN 5 DAYS 06/10/17 06/10/17 06/11/17 22:55 22:55 06:53 Creatine Kinase 42 41 CK-MB (CK-2) 3.56 Troponin I 0.382 NT-Pro-B Natriuret Pep 06/11/17 06/12/17 06:53 05:44 Creatine Kinase CK-MB (CK-2) 3.10 Troponin I 0.312 NT-Pro-B Natriuret Pep 9980 H Impressions: Chest/Abdomen CTA 06/10/17 19:09 IMPRESSION: NORMAL CTA OF THE CHEST. NO PULMONARY EMBOLI. CHRONIC INTERSTITIAL SCARRING. MODERATE LEFT PLEURAL EFFUSION AND SMALL RIGHT PLEURAL EFFUSION. Chest X-Ray 06/12/17 10:05 IMPRESSION: Trace right, small left pleural effusion unchanged from 06/11/2017, . Persistent left lower lobe consolidation atelectasis versus pneumonia Assessment & Plan - Diagnosis (1) Acute and chronic respiratory failure ([id number]) Qualifiers: Respiratory failure complication: hypoxia and hypercapnia Qualified Code(s) : J96.21 - Acute and chronic respiratory failure with hypoxia; J96.22 - Acute and chronic respiratory failure with hypercapnia Is this a current diagnosis for this admission?: Yes (2) Atrial fibrillation Qualifiers: Atrial fibrillation type: chronic Qualified Code(s): I48.2 - Chronic atrial fibrillation Is this a current diagnosis for this admission?: Yes (3) CO2 narcosis Is this a current diagnosis for this admission?: Yes (4) COPD (chronic obstructive pulmonary disease) Qualifiers: COPD type: COPD with acute exacerbation Qualified Code(s): J44.1 - Chronic obstructive pulmonary disease with (acute) exacerbation Is this a current diagnosis for this admission?: Yes (5) COPD with exacerbation Is this a current diagnosis for this admission?: Yes (6) Chronic kidney disease Qualifiers: Chronic kidney disease stage: stage 3 (moderate) Qualified Code(s): N18.3 - Chronic kidney disease, stage 3 (moderate) Is this a current diagnosis for this admission?: Yes (7) Congestive heart failure (CHF) Qualifiers: Congestive heart failure type: diastolic Congestive heart failure chronicity: acute on chronic Qualified Code(s): I50.33 - Acute on chronic diastolic (congestive) heart failure Is this a current diagnosis for this admission?: Yes (8) Elevated troponin I level Is this a current diagnosis for this admission?: Yes - Plan Summary Plan Summary: Continue treatment
[2017-06-16] MEDS: LEVOFLOXACIN 250 MG TABLET PO SCH (17:16)
[2017-06-16] MEDS: ATORVASTATIN CALCIUM 20 MG TABLET PO SCH (21:09)
[2017-06-16] MEDS: LATANOPROST 0.005% OPH SOLN 2.5 ML OU SCH (21:11)
[2017-06-17] MEDS: LEVALBUTEROL HCL NEB 1.25 MG/3 ML AMPUL NEB SCH ×6 (03:42→23:43)
[2017-06-17] MEDS: NICOTINE 21 MG/24 HR PATCH.TD24 TD SCH (09:16)
[2017-06-17] MEDS: ACETAZOLAMIDE 500 MG CAPSULE.SA PO SCH (09:17)
[2017-06-17] MEDS: LANSOPRAZOLE 30 MG TAB.RAP.DR PO SCH (09:17)
[2017-06-17] MEDS: DILTIAZEM HCL 120 MG CAP.SR.24H PO SCH (09:18)
[2017-06-17] MEDS: METOPROLOL SUCCINATE 25 MG TAB.SR.24H PO SCH (09:18)
[2017-06-17] MEDS: PREDNISONE 10 MG TABLET PO SCH (09:18)
--- NOTE | 2017-06-17 15:06 | PDOC PROGRESS REPORT ---
Subjective Progress Note for:: 06/17/17 Subjective:: Patient have no new complaints awaiting noninvasive positive pressure ventilation Physical Exam Vital Signs: Temp Pulse Resp BP Pulse Ox 98.6 F 75 18 132/53 H 100 06/17/17 11:15 06/17/17 14:00 06/17/17 12:13 06/17/17 11:15 06/17/17 11:15 Intake & Output 06/16/17 06/17/17 06/18/17 06:59 06:59 06:59 Intake Total 882 2222 475 Output Total 750 1200 400 Balance 132 1022 75 Weight 45.1 kg 41.9 kg General appearance: PRESENT: mild distress Eye exam: PRESENT: PERRLA Respiratory exam: PRESENT: decreased breath sounds Cardiovascular exam: PRESENT: +S1, +S2 GI/Abdominal exam: PRESENT: soft Neurological exam: PRESENT: alert Results Laboratory Results: 06/16/17 05:44 06/16/17 05:44 06/10/17 06/10/17 06/11/17 22:55 22:55 06:53 Creatine Kinase 42 41 CK-MB (CK-2) 3.56 Troponin I 0.382 NT-Pro-B Natriuret Pep 06/11/17 06/12/17 06:53 05:44 Creatine Kinase CK-MB (CK-2) 3.10 Troponin I 0.312 NT-Pro-B Natriuret Pep 9980 H Impressions: Chest/Abdomen CTA 06/10/17 19:09 IMPRESSION: NORMAL CTA OF THE CHEST. NO PULMONARY EMBOLI. CHRONIC INTERSTITIAL SCARRING. MODERATE LEFT PLEURAL EFFUSION AND SMALL RIGHT PLEURAL EFFUSION. Chest X-Ray 06/12/17 10:05 IMPRESSION: Trace right, small left pleural effusion unchanged from 06/11/2017, . Persistent left lower lobe consolidation atelectasis versus pneumonia Assessment & Plan - Diagnosis (1) Acute and chronic respiratory failure ([id number]) Qualifiers: Respiratory failure complication: hypoxia and hypercapnia Qualified Code(s) : J96.21 - Acute and chronic respiratory failure with hypoxia; J96.22 - Acute and chronic respiratory failure with hypercapnia Is this a current diagnosis for this admission?: Yes (2) Atrial fibrillation Qualifiers: Atrial fibrillation type: chronic Qualified Code(s): I48.2 - Chronic atrial fibrillation Is this a current diagnosis for this admission?: Yes (3) CO2 narcosis Is this a current diagnosis for this admission?: Yes (4) COPD (chronic obstructive pulmonary disease) Qualifiers: COPD type: COPD with acute exacerbation Qualified Code(s): J44.1 - Chronic obstructive pulmonary disease with (acute) exacerbation Is this a current diagnosis for this admission?: Yes (5) COPD with exacerbation Is this a current diagnosis for this admission?: Yes (6) Chronic kidney disease Qualifiers: Chronic kidney disease stage: stage 3 (moderate) Qualified Code(s): N18.3 - Chronic kidney disease, stage 3 (moderate) Is this a current diagnosis for this admission?: Yes (7) Congestive heart failure (CHF) Qualifiers: Congestive heart failure type: diastolic Congestive heart failure chronicity: acute on chronic Qualified Code(s): I50.33 - Acute on chronic diastolic (congestive) heart failure Is this a current diagnosis for this admission?: Yes (8) Elevated troponin I level Is this a current diagnosis for this admission?: Yes
[2017-06-17] MEDS: LEVOFLOXACIN 250 MG TABLET PO SCH (18:10)
[2017-06-17] MEDS: OXYCODONE-ACETAMINOPHEN 5-325 MG TABLET PO PRN ×2 (18:12→22:26)
[2017-06-17] MEDS: ATORVASTATIN CALCIUM 20 MG TABLET PO SCH (22:26)
[2017-06-17] MEDS: LATANOPROST 0.005% OPH SOLN 2.5 ML OU SCH (22:27)
[2017-06-18] MEDS: LEVALBUTEROL HCL NEB 1.25 MG/3 ML AMPUL NEB SCH ×6 (03:43→23:46)
[2017-06-18] MEDS: LANSOPRAZOLE 30 MG TAB.RAP.DR PO SCH (06:55)
[2017-06-18] MEDS: OXYCODONE-ACETAMINOPHEN 5-325 MG TABLET PO PRN ×4 (07:00→21:46)
[2017-06-18] MEDS: NICOTINE 21 MG/24 HR PATCH.TD24 TD SCH (10:50)
[2017-06-18] MEDS: PREDNISONE 10 MG TABLET PO SCH (10:51)
[2017-06-18] MEDS: ACETAZOLAMIDE 500 MG CAPSULE.SA PO SCH (10:51)
[2017-06-18] MEDS: METOPROLOL SUCCINATE 25 MG TAB.SR.24H PO SCH (10:52)
[2017-06-18] MEDS: DILTIAZEM HCL 120 MG CAP.SR.24H PO SCH (11:00)
[2017-06-18 11:20] LABS: ANION GAP 9 (5-19); BLOOD UREA NITROGEN 17 mg/dL (7-20); CALCIUM 9.1 mg/dL (8.4-10.2); CARBON DIOXIDE 29 mmol/L (22-30); CHLORIDE 102 mmol/L (98-107); CREATININE RESULT 0.82 mg/dL (0.52-1.25); GLUCOSE 135 mg/dL (75-110); POTASSIUM 3.8 mmol/L (3.6-5.0); SODIUM 139.7 mmol/L (137-145)
--- NOTE | 2017-06-18 13:13 | PDOC PROGRESS REPORT ---
Subjective Progress Note for:: 06/18/17 Subjective:: Sleep barely arousable Physical Exam Vital Signs: Temp Pulse Resp BP Pulse Ox 97.9 F 82 18 127/52 H 100 06/18/17 07:52 06/18/17 08:14 06/18/17 08:14 06/18/17 07:52 06/18/17 07:52 Intake & Output 06/17/17 06/18/17 06/19/17 06:59 06:59 06:59 Intake Total 2222 1485 Output Total 1200 1700 Balance 1022 -215 Weight 41.9 kg 42 kg General appearance: PRESENT: no acute distress, disheveled, hard of hearing, thin, well-developed Head exam: PRESENT: normocephalic Eye exam: PRESENT: conjunctiva pale, EOMI Mouth exam: PRESENT: dry mucosa, neck supple, tongue midline Neck exam: ABSENT: carotid bruit, JVD, lymphadenopathy, thyromegaly Respiratory exam: PRESENT: decreased breath sounds, prolonged expiratory phas, rhonchi, symmetrical. ABSENT: retraction, stridor, tachypnea, unlabored Cardiovascular exam: PRESENT: RRR, +S1, +S2 Pulses: PRESENT: normal radial pulses GI/Abdominal exam: PRESENT: normal bowel sounds, soft. ABSENT: distended, guarding, mass, organolmegaly, rebound, tenderness Rectal exam: PRESENT: deferred Musculoskeletal exam: PRESENT: normal inspection Neurological exam: PRESENT: awake Skin exam: PRESENT: dry, warm Results Laboratory Results: 06/16/17 05:44 06/18/17 10:20 06/18/17 10:20 Sodium 139.7 Potassium 3.8 Chloride 102 Carbon Dioxide 29 Anion Gap 9 BUN 17 Creatinine 0.82 Est GFR ( Amer) > 60 Est GFR (Non-Af Amer) > 60 Glucose 135 H Calcium 9.1 06/10/17 06/10/17 06/11/17 22:55 22:55 06:53 Creatine Kinase 42 41 CK-MB (CK-2) 3.56 Troponin I 0.382 NT-Pro-B Natriuret Pep 06/11/17 06/12/17 06/18/17 06:53 05:44 10:20 Creatine Kinase CK-MB (CK-2) 3.10 Troponin I 0.312 NT-Pro-B Natriuret Pep 9980 H 2010 H Impressions: Chest/Abdomen CTA 06/10/17 19:09 IMPRESSION: NORMAL CTA OF THE CHEST. NO PULMONARY EMBOLI. CHRONIC INTERSTITIAL SCARRING. MODERATE LEFT PLEURAL EFFUSION AND SMALL RIGHT PLEURAL EFFUSION. Chest X-Ray 06/12/17 10:05 IMPRESSION: Trace right, small left pleural effusion unchanged from 06/11/2017, . Persistent left lower lobe consolidation atelectasis versus pneumonia Assessment & Plan - Diagnosis (1) Acute and chronic respiratory failure ([id number]-[id number]) Qualifiers: Respiratory failure complication: hypoxia and hypercapnia Qualified Code(s) : J96.21 - Acute and chronic respiratory failure with hypoxia; J96.22 - Acute and chronic respiratory failure with hypercapnia Is this a current diagnosis for this admission?: Yes Plan: Paper patient verbalizes but is not compliant with noninvasive positive pressure ventilation (2) Atrial fibrillation Qualifiers: Atrial fibrillation type: chronic Qualified Code(s): I48.2 - Chronic atrial fibrillation Is this a current diagnosis for this admission?: Yes (3) COPD with exacerbation Is this a current diagnosis for this admission?: Yes (4) Pleural effusion Is this a current diagnosis for this admission?: Yes (5) Interstitial lung disease Is this a current diagnosis for this admission?: Yes (6) Congestive heart failure (CHF) Qualifiers: Congestive heart failure type: diastolic Congestive heart failure chronicity: acute on chronic Qualified Code(s): I50.33 - Acute on chronic diastolic (congestive) heart failure Is this a current diagnosis for this admission?: Yes (7) Tobacco abuse Is this a current diagnosis for this admission?: Yes
--- NOTE | 2017-06-18 18:24 | PDOC PROGRESS REPORT ---
Subjective Progress Note for:: 06/18/17 Subjective:: No chest pain, palpitation, PND, or orthopnea. No abdominal pain, nausea or vomiting. Tolerating oral intake. Remain on supplemental oxygen at 2l/min. and BIPAP support while sleeping. No fever or chills. Physical Exam Vital Signs: Temp Pulse Resp BP Pulse Ox 97.5 F 56 L 18 103/38 L 94 06/18/17 15:30 06/18/17 16:09 06/18/17 16:09 06/18/17 15:30 06/18/17 16:09 Intake & Output 06/17/17 06/18/17 06/19/17 06:59 06:59 06:59 Intake Total 2222 1485 120 Output Total 1200 1700 600 Balance 1022 215 -480 Weight 41.9 kg 42 kg Physical Exam: Patient is currently on BiPAP machine support for hypercapnia management. General appearance: PRESENT: no acute distress, cooperative Head exam: PRESENT: atraumatic, normocephalic Eye exam: PRESENT: conjunctiva pink, EOMI, PERRLA. ABSENT: scleral icterus Mouth exam: PRESENT: moist Teeth exam: PRESENT: edentulous - dentures in use Respiratory exam: PRESENT: clear to auscultation leslie, decreased breath sounds - at lung bases Cardiovascular exam: PRESENT: RRR. ABSENT: diastolic murmur, rubs, systolic murmur GI/Abdominal exam: PRESENT: normal bowel sounds, soft. ABSENT: distended, guarding, mass, organomegaly, rebound, tenderness Extremities exam: PRESENT: Arthritis related to multiple joint involvement with arthritis. ABSENT: pedal edema. Neurological exam: PRESENT: alert, awake, oriented to person, oriented to place , oriented to time, oriented to situation, CN II-XII grossly intact. ABSENT: motor sensory deficit Psychiatric exam: PRESENT: appropriate affect, normal mood. ABSENT: homicidal ideation, suicidal ideation Skin exam: PRESENT: dry, intact, warm. ABSENT: cyanosis, rash Results Laboratory Results: 06/16/17 05:44 06/18/17 10:20 06/18/17 10:20 Sodium 139.7 Potassium 3.8 Chloride 102 Carbon Dioxide 29 Anion Gap 9 BUN 17 Creatinine 0.82 Est GFR ( Amer) > 60 Est GFR (Non-Af Amer) > 60 Glucose 135 H Calcium 9.1 06/10/17 06/10/17 06/11/17 22:55 22:55 06:53 Creatine Kinase 42 41 CK-MB (CK-2) 3.56 Troponin I 0.382 NT-Pro-B Natriuret Pep 06/11/17 06/12/17 06/18/17 06:53 05:44 10:20 Creatine Kinase CK-MB (CK-2) 3.10 Troponin I 0.312 NT-Pro-B Natriuret Pep 9980 H 2010 H Impressions: Chest/Abdomen CTA 06/10/17 19:09 IMPRESSION: NORMAL CTA OF THE CHEST. NO PULMONARY EMBOLI. CHRONIC INTERSTITIAL SCARRING. MODERATE LEFT PLEURAL EFFUSION AND SMALL RIGHT PLEURAL EFFUSION. Chest X-Ray 06/12/17 10:05 IMPRESSION: Trace right, small left pleural effusion unchanged from 06/11/2017, . Persistent left lower lobe consolidation atelectasis versus pneumonia Assessment & Plan - Diagnosis (1) Acute and chronic respiratory failure ([id number]) Qualifiers: Respiratory failure complication: hypoxia and hypercapnia Qualified Code(s) : J96.21 - Acute and chronic respiratory failure with hypoxia; J96.22 - Acute and chronic respiratory failure with hypercapnia Is this a current diagnosis for this admission?: Yes (2) Congestive heart failure (CHF) Qualifiers: Congestive heart failure type: diastolic Congestive heart failure chronicity: acute on chronic Qualified Code(s): I50.33 - Acute on chronic diastolic (congestive) heart failure Is this a current diagnosis for this admission?: Yes (3) Atrial fibrillation Qualifiers: Atrial fibrillation type: chronic Qualified Code(s): I48.2 - Chronic atrial fibrillation Is this a current diagnosis for this admission?: Yes (4) Tobacco abuse Is this a current diagnosis for this admission?: Yes (5) COPD (chronic obstructive pulmonary disease) Qualifiers: COPD type: COPD with acute exacerbation Qualified Code(s): J44.1 - Chronic obstructive pulmonary disease with (acute) exacerbation Is this a current diagnosis for this admission?: Yes (6) Pulmonary hypertension Is this a current diagnosis for this admission?: Yes - Time Time Spent with patient: 25-34 minutes Medications reviewed and adjusted accordingly: Yes Anticipated discharge: Home Within: within 24 hours - Inpatient Certification Based on my medical assessment, after consideration of the patient's comorbidities, presenting symptoms, or acuity I expect that the services needed warrant INPATIENT care.: Yes I certify that my determination is in accordance with my understanding of Medicare's requirements for reasonable and necessary INPATIENT services [42 CFR 412.3e].: Yes Medical Necessity: Need Close Monitoring Due to Risk of Patient Decompensation, Need For Continuous Telemetry Monitoring, Need for Nebulizer Therapy and Monitoring of Response, Risk of Complication if Not Cared For in Hospital Post Hospital Care: 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 D/C Levofloxacin. Start on Coumadin 3 mg po q nightly. Maintain on all other current medication management. Patient is aware of possible discharge home tomorrow if she continue to improve clinically.
[2017-06-18] MEDS: WARFARIN SODIUM 3 MG TABLET PO SCH (21:46)
[2017-06-18] MEDS: ATORVASTATIN CALCIUM 20 MG TABLET PO SCH (21:46)
[2017-06-18] MEDS: LATANOPROST 0.005% OPH SOLN 2.5 ML OU SCH (21:47)
[2017-06-18] MEDS ORDERED: (PENDING PHARMACY ID) (Warfarin Sodium 3 MG) PO SCH (22:00)
[2017-06-19] MEDS: LEVALBUTEROL HCL NEB 1.25 MG/3 ML AMPUL NEB SCH ×6 (03:24→23:50)
[2017-06-19] MEDS: LANSOPRAZOLE 30 MG TAB.RAP.DR PO SCH (05:03)
[2017-06-19] MEDS: NICOTINE 21 MG/24 HR PATCH.TD24 TD SCH (09:32)
[2017-06-19] MEDS: ACETAZOLAMIDE 500 MG CAPSULE.SA PO SCH (09:33)
[2017-06-19] MEDS: METOPROLOL SUCCINATE 25 MG TAB.SR.24H PO SCH (09:33)
[2017-06-19] MEDS: PREDNISONE 10 MG TABLET PO SCH (09:33)
[2017-06-19] MEDS: DILTIAZEM HCL 120 MG CAP.SR.24H PO SCH (09:35)
[2017-06-19] MEDS: OXYCODONE-ACETAMINOPHEN 5-325 MG TABLET PO PRN ×3 (09:35→23:41)
--- NOTE | 2017-06-19 15:35 | PDOC PROGRESS REPORT ---
Subjective Progress Note for:: 06/19/17 Subjective:: Awake alert and oriented Physical Exam Vital Signs: Temp Pulse Resp BP Pulse Ox 98.3 F 74 16 133/48 H 100 06/19/17 11:22 06/19/17 11:49 06/19/17 11:49 06/19/17 11:22 06/19/17 11:22 Intake & Output 06/18/17 06/19/17 06/20/17 06:59 06:59 06:59 Intake Total 1485 1553 Output Total 1700 1292 Balance -215 -397 Weight 42 kg 42 kg General appearance: PRESENT: no acute distress, cooperative, disheveled, thin, well-developed Head exam: PRESENT: atraumatic, normocephalic Eye exam: PRESENT: conjunctiva pale, EOMI Mouth exam: PRESENT: dry mucosa, neck supple, tongue midline Neck exam: ABSENT: carotid bruit, JVD, lymphadenopathy, thyromegaly Respiratory exam: PRESENT: decreased breath sounds, prolonged expiratory phas, rhonchi, symmetrical, unlabored Cardiovascular exam: PRESENT: RRR, +S1, +S2 Pulses: PRESENT: normal radial pulses GI/Abdominal exam: PRESENT: normal bowel sounds, soft. ABSENT: distended, guarding, mass, organolmegaly, rebound, tenderness Rectal exam: PRESENT: deferred Musculoskeletal exam: PRESENT: normal inspection Neurological exam: PRESENT: alert, awake Psychiatric exam: PRESENT: normal mood Skin exam: PRESENT: dry, warm Results Laboratory Results: 06/16/17 05:44 06/18/17 10:20 06/10/17 06/10/17 06/11/17 22:55 22:55 06:53 Creatine Kinase 42 41 CK-MB (CK-2) 3.56 Troponin I 0.382 NT-Pro-B Natriuret Pep 06/11/17 06/12/17 06/18/17 06:53 05:44 10:20 Creatine Kinase CK-MB (CK-2) 3.10 Troponin I 0.312 NT-Pro-B Natriuret Pep 9980 H 2010 H Impressions: Chest/Abdomen CTA 06/10/17 19:09 IMPRESSION: NORMAL CTA OF THE CHEST. NO PULMONARY EMBOLI. CHRONIC INTERSTITIAL SCARRING. MODERATE LEFT PLEURAL EFFUSION AND SMALL RIGHT PLEURAL EFFUSION. Chest X-Ray 06/12/17 10:05 IMPRESSION: Trace right, small left pleural effusion unchanged from 06/11/2017, . Persistent left lower lobe consolidation atelectasis versus pneumonia Assessment & Plan - Diagnosis (1) Acute and chronic respiratory failure ([id number]) Qualifiers: Respiratory failure complication: hypoxia and hypercapnia Qualified Code(s) : J96.21 - Acute and chronic respiratory failure with hypoxia; J96.22 - Acute and chronic respiratory failure with hypercapnia Is this a current diagnosis for this admission?: Yes Plan: patient wore her noninvasive positive pressure ventilation last night (2) Atrial fibrillation Qualifiers: Atrial fibrillation type: chronic Qualified Code(s): I48.2 - Chronic atrial fibrillation Is this a current diagnosis for this admission?: Yes (3) COPD with exacerbation Is this a current diagnosis for this admission?: Yes (4) Pleural effusion Is this a current diagnosis for this admission?: Yes (5) Interstitial lung disease Is this a current diagnosis for this admission?: Yes (6) Congestive heart failure (CHF) Qualifiers: Congestive heart failure type: diastolic Congestive heart failure chronicity: acute on chronic Qualified Code(s): I50.33 - Acute on chronic diastolic (congestive) heart failure Is this a current diagnosis for this admission?: Yes (7) Tobacco abuse Is this a current diagnosis for this admission?: Yes
--- NOTE | 2017-06-19 18:02 | PDOC PROGRESS REPORT ---
Subjective Progress Note for:: 06/19/17 Subjective:: No chest pain, palpitation, PND, or orthopnea. No abdominal pain, nausea or vomiting. Tolerating oral intake. Remain on supplemental oxygen at 2l/min. and AVAPS support while sleeping. No fever or chills. Physical Exam Vital Signs: Temp Pulse Resp BP Pulse Ox 98.3 F 74 16 133/48 H 100 06/19/17 11:22 06/19/17 11:49 06/19/17 11:49 06/19/17 11:22 06/19/17 11:22 Intake & Output 06/18/17 06/19/17 06/20/17 06:59 06:59 06:59 Intake Total 1485 1553 Output Total 1700 1950 Balance -215 -397 Weight 42 kg 42 kg Physical Exam: Patient is currently on AVAPS machine support for hypercapnia management at night and when sleeping during the daytme. General appearance: PRESENT: no acute distress, cooperative Head exam: PRESENT: atraumatic, normocephalic Eye exam: PRESENT: conjunctiva pink, EOMI, PERRLA. ABSENT: scleral icterus Mouth exam: PRESENT: moist Teeth exam: PRESENT: edentulous - dentures in use Respiratory exam: PRESENT: clear to auscultation leslie, decreased breath sounds - at lung bases Cardiovascular exam: PRESENT: RRR. ABSENT: diastolic murmur, rubs, systolic murmur GI/Abdominal exam: PRESENT: normal bowel sounds, soft. ABSENT: distended, guarding, mass, organomegaly, rebound, tenderness Extremities exam: PRESENT: Arthritis related to multiple joint involvement with arthritis. ABSENT: pedal edema. Neurological exam: PRESENT: alert, awake, oriented to person, oriented to place , oriented to time, oriented to situation, CN II-XII grossly intact. ABSENT: motor sensory deficit Psychiatric exam: PRESENT: appropriate affect, normal mood. ABSENT: homicidal ideation, suicidal ideation Skin exam: PRESENT: dry, intact, warm. ABSENT: cyanosis, rash Results Laboratory Results: 06/16/17 05:44 06/18/17 10:20 06/10/17 06/10/17 06/11/17 22:55 22:55 06:53 Creatine Kinase 42 41 CK-MB (CK-2) 3.56 Troponin I 0.382 NT-Pro-B Natriuret Pep 06/11/17 06/12/17 06/18/17 06:53 05:44 10:20 Creatine Kinase CK-MB (CK-2) 3.10 Troponin I 0.312 NT-Pro-B Natriuret Pep 9980 H 2010 H Impressions: Chest/Abdomen CTA 06/10/17 19:09 IMPRESSION: NORMAL CTA OF THE CHEST. NO PULMONARY EMBOLI. CHRONIC INTERSTITIAL SCARRING. MODERATE LEFT PLEURAL EFFUSION AND SMALL RIGHT PLEURAL EFFUSION. Chest X-Ray 06/12/17 10:05 IMPRESSION: Trace right, small left pleural effusion unchanged from 06/11/2017, . Persistent left lower lobe consolidation atelectasis versus pneumonia Assessment & Plan - Diagnosis (1) Acute and chronic respiratory failure ([id number]) Qualifiers: Respiratory failure complication: hypoxia and hypercapnia Qualified Code(s) : J96.21 - Acute and chronic respiratory failure with hypoxia; J96.22 - Acute and chronic respiratory failure with hypercapnia Is this a current diagnosis for this admission?: Yes (2) Congestive heart failure (CHF) Qualifiers: Congestive heart failure type: diastolic Congestive heart failure chronicity: acute on chronic Qualified Code(s): I50.33 - Acute on chronic diastolic (congestive) heart failure Is this a current diagnosis for this admission?: Yes (3) Atrial fibrillation Qualifiers: Atrial fibrillation type: chronic Qualified Code(s): I48.2 - Chronic atrial fibrillation Is this a current diagnosis for this admission?: Yes (4) Tobacco abuse Is this a current diagnosis for this admission?: Yes (5) COPD (chronic obstructive pulmonary disease) Qualifiers: COPD type: COPD with acute exacerbation Qualified Code(s): J44.1 - Chronic obstructive pulmonary disease with (acute) exacerbation Is this a current diagnosis for this admission?: Yes (6) Pulmonary hypertension Is this a current diagnosis for this admission?: Yes - Time Time Spent with patient: 25-34 minutes Medications reviewed and adjusted accordingly: Yes Anticipated discharge: Home with Homehealth Within: within 24 hours - Inpatient Certification Based on my medical assessment, after consideration of the patient's comorbidities, presenting symptoms, or acuity I expect that the services needed warrant INPATIENT care.: Yes I certify that my determination is in accordance with my understanding of Medicare's requirements for reasonable and necessary INPATIENT services [42 CFR 412.3e].: Yes Medical Necessity: Need Close Monitoring Due to Risk of Patient Decompensation, Need For IV Fluids, Need For Continuous Telemetry Monitoring, Risk of Complication if Not Cared For in Hospital Post Hospital Care: D/C Manager Quality Documentation - Plan Summary Plan Summary: Patient was cleared today with regard to ambulatory effort with person assistance. She will be discharge home with GERIATRIC NURSE services including PT, VN and PCS. Gift Shop Clerk is arranging for home AVAPS system upon discharge. Patient is requesting for portable oxygen supply. I will leave this to the pulmonary tem regarding requisition and DME supplier management to centralize her lung disease management. I discussed at length with patient and daughter at bedside regarding discharge plan for tomorrow. I will decrease Prednisone to 5 mg p.o daily.
[2017-06-19] MEDS: WARFARIN SODIUM 3 MG TABLET PO SCH (21:45)
[2017-06-19] MEDS: ATORVASTATIN CALCIUM 20 MG TABLET PO SCH (21:46)
[2017-06-19] MEDS: LATANOPROST 0.005% OPH SOLN 2.5 ML OU SCH (21:46)
[2017-06-20] MEDS: LEVALBUTEROL HCL NEB 1.25 MG/3 ML AMPUL NEB SCH ×4 (04:06→16:09)
[2017-06-20] MEDS: LANSOPRAZOLE 30 MG TAB.RAP.DR PO SCH (05:05)
[2017-06-20] MEDS: OXYCODONE-ACETAMINOPHEN 5-325 MG TABLET PO PRN ×3 (05:09→15:02)
[2017-06-20] MEDS: METOPROLOL SUCCINATE 25 MG TAB.SR.24H PO SCH (09:36)
[2017-06-20] MEDS: DILTIAZEM HCL 120 MG CAP.SR.24H PO SCH (09:36)
[2017-06-20] MEDS: NICOTINE 21 MG/24 HR PATCH.TD24 TD SCH (09:36)
[2017-06-20] MEDS: ACETAZOLAMIDE 500 MG CAPSULE.SA PO SCH (09:38)
[2017-06-20] MEDS ORDERED: PREDNISONE 5 MG TABLET PO SCH (10:00)
--- NOTE | 2017-06-20 10:44 | PDOC PROGRESS REPORT ---
Subjective Progress Note for:: 06/20/17 Subjective:: Patient without complaints anxious to go home Physical Exam Vital Signs: Temp Pulse Resp BP Pulse Ox 98.0 F 69 16 140/57 H 98 06/20/17 07:21 06/20/17 08:29 06/20/17 08:29 06/20/17 07:21 06/20/17 08:29 Intake & Output 06/19/17 06/20/17 06/21/17 06:59 06:59 06:59 Intake Total 1553 2054 Output Total 1950 350 Balance -397 1704 Weight 42 kg 39.8 kg General appearance: PRESENT: no acute distress, cooperative, disheveled, thin, well-developed Head exam: PRESENT: atraumatic, normocephalic Eye exam: PRESENT: conjunctiva pale, EOMI Mouth exam: PRESENT: dry mucosa, neck supple, tongue midline Teeth exam: PRESENT: poor dentation Neck exam: ABSENT: carotid bruit, JVD, lymphadenopathy, thyromegaly Respiratory exam: PRESENT: decreased breath sounds, prolonged expiratory phas, rhonchi, symmetrical, unlabored. ABSENT: crackles, rales, retraction, stridor, tachypnea, wheezes Cardiovascular exam: PRESENT: RRR, +S1, +S2 Pulses: PRESENT: normal radial pulses GI/Abdominal exam: PRESENT: normal bowel sounds, soft. ABSENT: distended, guarding, mass, organolmegaly, rebound, tenderness Rectal exam: PRESENT: deferred Musculoskeletal exam: PRESENT: normal inspection Neurological exam: PRESENT: alert, awake Psychiatric exam: PRESENT: normal mood Skin exam: PRESENT: dry, warm Results Laboratory Results: 06/16/17 05:44 06/18/17 10:20 06/10/17 06/10/17 06/11/17 22:55 22:55 06:53 Creatine Kinase 42 41 CK-MB (CK-2) 3.56 Troponin I 0.382 NT-Pro-B Natriuret Pep 06/11/17 06/12/17 06/18/17 06:53 05:44 10:20 Creatine Kinase CK-MB (CK-2) 3.10 Troponin I 0.312 NT-Pro-B Natriuret Pep 9980 H 2010 H Impressions: Chest/Abdomen CTA 06/10/17 19:09 IMPRESSION: NORMAL CTA OF THE CHEST. NO PULMONARY EMBOLI. CHRONIC INTERSTITIAL SCARRING. MODERATE LEFT PLEURAL EFFUSION AND SMALL RIGHT PLEURAL EFFUSION. Chest X-Ray 06/12/17 10:05 IMPRESSION: Trace right, small left pleural effusion unchanged from 06/11/2017, . Persistent left lower lobe consolidation atelectasis versus pneumonia Assessment & Plan - Diagnosis (1) Acute and chronic respiratory failure ([id number]) Qualifiers: Respiratory failure complication: hypoxia and hypercapnia Qualified Code(s) : J96.21 - Acute and chronic respiratory failure with hypoxia; J96.22 - Acute and chronic respiratory failure with hypercapnia Is this a current diagnosis for this admission?: Yes Plan: Home on trilogy (2) Atrial fibrillation Qualifiers: Atrial fibrillation type: chronic Qualified Code(s): I48.2 - Chronic atrial fibrillation Is this a current diagnosis for this admission?: Yes Plan: Stable at this time (3) COPD with exacerbation Is this a current diagnosis for this admission?: Yes Plan: At or near baseline (4) Pleural effusion Is this a current diagnosis for this admission?: Yes (5) Interstitial lung disease Is this a current diagnosis for this admission?: Yes (6) Congestive heart failure (CHF) Qualifiers: Congestive heart failure type: diastolic Congestive heart failure chronicity: acute on chronic Qualified Code(s): I50.33 - Acute on chronic diastolic (congestive) heart failure Is this a current diagnosis for this admission?: Yes (7) Tobacco abuse Is this a current diagnosis for this admission?: Yes
--- NOTE | 2017-06-20 18:26 | PDOC DISCHARGE SUMMARY ---
General - Admit/Disc Date/PCP Admission Date/Primary Care Provider: 06/10/17 19:33 Discharge Date: 06/20/17 - Discharge Diagnosis (1) Acute and chronic respiratory failure ([id number]) Is this a current diagnosis for this admission?: Yes (2) Congestive heart failure (CHF) Is this a current diagnosis for this admission?: Yes (3) Atrial fibrillation Is this a current diagnosis for this admission?: Yes (4) Tobacco abuse Is this a current diagnosis for this admission?: Yes (5) COPD (chronic obstructive pulmonary disease) Is this a current diagnosis for this admission?: Yes (6) Pulmonary hypertension Is this a current diagnosis for this admission?: Yes - Additional Information Resuscitation Status: Full Code Discharge Diet: Cardiac Discharge Activity: Activity As Tolerated, Balance Activity w/Rest, Weigh Daily Home Medications: Albuterol Sulfate [Proair HFA] 2 puff IH Q4HP PRN 06/11/17 Atorvastatin Calcium [Lipitor 40 mg Tablet] 40 mg PO QHS 06/11/17 Calcium Carbonate/Vitamin D3 [Oyster Shell 500-Vit D3 200 Tb] 1 each PO DAILY Citalopram Hydrobromide [Celexa 20 mg Tablet] 20 mg PO DAILY 06/11/17 Latanoprost [Xalatan 0.005% Oph Soln 2.5 ml] 1 drop OU QHS 06/11/17 Metoprolol Succinate [Toprol Xl 25 mg Tab.sr] 25 mg PO DAILY 06/11/17 Pantoprazole Sodium [Protonix] 40 mg PO QAM 06/11/17 Tiotropium Rosman [Spiriva Handihaler 18 mcg/dose (30 Dose)] 1 cap IH DAILY 01/22 Valsartan [Diovan 40 mg Tablet] 40 mg PO DAILY 06/11/17 Warfarin Sodium [Coumadin 3 mg Tablet] 3 mg PO QPM 06/11/17 Acetazolamide [Diamox Sequel 500 mg] 500 mg PO DAILY #30 capsule.sa 06/20/17 Diltiazem HCl [Cardizem Cd 120 mg Capsule] 120 mg PO DAILY #30 cap.sr.24h Docusate Sodium [Colace 100 mg Capsule] 200 mg PO DAILYP PRN #60 capsule Latanoprost [Xalatan 0.005% Oph Soln 2.5 ml] 1 drop OU QHS bottle 06/20/17 Nicotine [Nicoderm 21 mg/24 Hr Transderm Patch] 1 each TD DAILY #30 patch.td24 06/20/17 Oxycodone HCl/Acetaminophen [Percocet 5-325 mg Tablet] 1 tab PO Q4HP PRN #21 tablet 06/20/17 Prednisone [Deltasone 5 mg Tablet] 5 mg PO DAILY #7 tablet 06/20/17 History of Present Illness History of Present Illness: JUNAID VILCHIS is a 72 year old female with h/o COPD on home 02 (2L) who sees Dr. whitt with c/o wheezing and productive cough for the past several days. Pt. continues to smoke. She denies CP, N,V. O2 sat at time of pickle pumper was 80%. She was givern nebs times 2 and solumedrol by EMS history further obtained by talking with patient's sister and and daughter. It seems patient was very lethargic and was difficult to wake up at home. Subsequent blood gases showed marked hypoxemia and also hypercarbia. Currently patient on 100% oxygen. Patient does have cough with some productive sputum. She however denied any fever or chills at this time. Patient was noted to have elevated BNP. Patient does give history of peripheral vascular disease with bilateral carotid endarterectomy. Patient denied any prior history of myocardial infarction or angina. Patient also describes some intermittent left arm weakness. Hospital Course Hospital Course: She was admitted to ICU and initially managed with BiPAP but did not respond as expected necessitating use of AVAPS support. Her hypoxemic hypercapnic status did improved. Patient has history of chronic respiratory failure due to end state COPD on nocturnal home oxygen prior to admission and she continue to smoke cigarette. With adjustment in her medication, she has remain clinically stable and tolerating Prednisone tapering regimen. Her cardiac morbidities including chronic atrial fibrillation and diastolic CHF did show improvement with medication adjustment. She was seen in consultation during this hospitalization by Dr Ruiz, rougher for cement, and Dr Aceves, bridge maintainer. She will follow up with these physicians as instructed upon discharge. She will follow up with me as scheduled and instructed upon discharge. She will be discharged home on Trilogy Home Vent support with supplemental oxygen. I had extensive discussion with her and daughter at bed side regarding post discharge care plan. She will be discharge with [facility] services including Visiting nurse, physical therapy and personal care services. Physical Exam Vital Signs: Temp Pulse Resp BP Pulse Ox 98.0 F 68 16 140/57 H 97 06/20/17 07:21 06/20/17 16:09 06/20/17 16:09 06/20/17 07:21 06/20/17 12:20 Intake & Output 06/19/17 06/20/17 06/21/17 06:59 06:59 06:59 Intake Total 1553 2054 Output Total 1950 350 Balance -397 1704 Weight 42 kg 39.8 kg Physical Exam: General appearance: PRESENT: no acute distress, cooperative, supplemetal oxygen via nasal cannula in use. AVAPS on standby at bedside. Head exam: PRESENT: atraumatic, normocephalic Eye exam: PRESENT: conjunctiva pink, EOMI, PERRLA. ABSENT: scleral icterus Mouth exam: PRESENT: moist Teeth exam: PRESENT: edentulous - dentures in use Respiratory exam: PRESENT: clear to auscultation leslie, decreased breath sounds - at lung bases Cardiovascular exam: PRESENT: RRR. ABSENT: diastolic murmur, rubs, systolic murmur GI/Abdominal exam: PRESENT: normal bowel sounds, soft. ABSENT: distended, guarding, mass, organomegaly, rebound, tenderness Extremities exam: PRESENT: Arthritis related to multiple joint involvement with arthritis. ABSENT: pedal edema. Neurological exam: PRESENT: alert, awake, oriented to person, oriented to place , oriented to time, oriented to situation, CN II-XII grossly intact. ABSENT: motor sensory deficit Psychiatric exam: PRESENT: appropriate affect, normal mood. ABSENT: homicidal ideation, suicidal ideation Skin exam: PRESENT: dry, intact, warm. ABSENT: cyanosis, rash Results Laboratory Results: 06/16/17 05:44 06/18/17 10:20 06/10/17 06/10/17 06/11/17 22:55 22:55 06:53 Creatine Kinase 42 41 CK-MB (CK-2) 3.56 Troponin I 0.382 NT-Pro-B Natriuret Pep 06/11/17 06/12/17 06/18/17 06:53 05:44 10:20 Creatine Kinase CK-MB (CK-2) 3.10 Troponin I 0.312 NT-Pro-B Natriuret Pep 9980 H 2010 H Impressions: Chest/Abdomen CTA 06/10/17 19:09 IMPRESSION: NORMAL CTA OF THE CHEST. NO PULMONARY EMBOLI. CHRONIC INTERSTITIAL SCARRING. MODERATE LEFT PLEURAL EFFUSION AND SMALL RIGHT PLEURAL EFFUSION. Chest X-Ray 06/12/17 10:05 IMPRESSION: Trace right, small left pleural effusion unchanged from 06/11/2017, . Persistent left lower lobe consolidation atelectasis versus pneumonia Qualifiers PATEINT BEING DISCHARGED WITH ANY OF THE FOLLOWING DIAGNOSIS?: Heart Failure DC Pt discharged ACEI/ARBS?: No Reason(s) for not prescribing ACEI/ARBS:: Medical Contraindication HF Pt being discharged on ACEI for LVEF less than 40%?: Yes HF Pt being discharged on ARBS for LVEF less than 40%?: Yes HF Pt with Afib discharged with Warfarin?: Yes HF Pt discharged on evidence-based Beta Nakia:: Yes Plan Discharge Plan: Discharge home today with home Trilogy Vent machine and supplemental oxygen. She will receive DIRECTOR CARDIOVASCULAR services as noted. She will foillow up with me in the office as instructed upon discharge. She will follow up with Drs. Aceves and Sara as instructed. Time Spent: Greater than 30 Minutes - More than 50% of my consultation time was spent in care coordination and post discharge instruction with patient and daughtert bedside.
[2017-06-20 18:47] VITALS: BP 139/63
== END 2017-06-20 19:51 | disposition home or self-care (01) | DRG 189 ==
LOC: ER 16:45 → UNDOADMIN 19:24 → EH 19:24 → ICU 23:30 → 3W 06-11 14:54
PROVIDERS: ADMIT Internal Medicine Geriatric Medicine; ATTEND Internal Medicine Geriatric Medicine
DX: J96.22 Acute and chronic respiratory failure with hypercapnia (principal); I50.33 Acute on chronic diastolic (congestive) heart failure; J44.1 Chronic obstructive pulmonary disease with (acute) exacerbation; I13.0 Hypertensive heart and chronic kidney disease with heart failure and stage 1 through stage 4 chronic kidney disease, or unspecified chronic kidney disease; J84.9 Interstitial pulmonary disease, unspecified; J96.21 Acute and chronic respiratory failure with hypoxia; N18.3 Chronic kidney disease, stage 3 (moderate); I48.2 Chronic atrial fibrillation; E78.5 Hyperlipidemia, unspecified; I25.10 Atherosclerotic heart disease of native coronary artery without angina pectoris; M19.90 Unspecified osteoarthritis, unspecified site; F32.9 Major depressive disorder, single episode, unspecified; I73.9 Peripheral vascular disease, unspecified; Z79.82 Long term (current) use of aspirin; Z79.899 Other long term (current) drug therapy; Z79.01 Long term (current) use of anticoagulants; F17.210 Nicotine dependence, cigarettes, uncomplicated; Z85.3 Personal history of malignant neoplasm of breast; Z91.030 Bee allergy status
CPT/HCPCS: 36415; 36600; 71010; 71020; 71275; 80048; 80053; 80061; 82550; 82553; 82803; 83880; 84484; 85025; 85610; 85730; 87040; 93005; 93010; 93306; 94640; 94660; 94799; 99291; G8978-GP; G8979-GP; G8980-GP; J1940; J1956; J2920; J2930; J3490; J7512; J7620

== ENCOUNTER 2017-07-08 19:12 | Inpatient (IN) | payer MEDICARE, OTHER ==
[2017-07-08 19:35] LABS: ABSOLUTE EOSINOPHILS # (AUTO) 0.1 10^3/uL (0.0-0.6); ABSOLUTE LYMPHOCYTES (AUTO) 1.2 10^3/uL (0.5-4.7); ABSOLUTE MONOCYTES (AUTO) 0.8 10^3/uL (0.1-1.4); ABSOLUTE NEUT (AUTO) 6.7 10^3/uL (1.7-8.2); BASOPHILS % (AUTO) 0.4 % (0-2); EOSINOPHILS % (AUTO) 0.9 % (0-6); HEMATOCRIT 32.7 % (36.0-47.0); HEMOGLOBIN 10.5 g/dL (12.0-15.5); HGB HCT DIFFERENCE -1.2; LYMPHOCYTES % (AUTO) 13.6 % (13-45); MEAN CORPUSCULAR HEMOGLOBIN 30.9 pg (27.0-33.4); MEAN CORPUSCULAR HGB CONC 32.2 g/dL (32.0-36.0); MEAN CORPUSCULAR VOLUME 96 fl (80-97); RED BLOOD COUNT 3.41 10^6/uL (3.72-5.28); RED CELL DISTRIBUTION WIDTH 18.3 % (11.5-14.0); SEGMENTED NEUTROPHILS % (AUTO) 76.1 % (42-78); WHITE BLOOD COUNT 8.8 10^3/uL (4.0-10.5)
[2017-07-08 19:37] LABS: ARTERIAL BLOOD BASE EXCESS -1.1 mmol/L
--- NOTE | 2017-07-08 19:39 | ER Document Report ---
ED Respiratory Problem - General Stated Complaint: RESPIRATORY DISTRESS Time Seen by Provider: 07/08/17 19:32 Notes: Patient was brought in because of respiratory distress and worsening oxygen saturation. She has a history of CHF and COPD and has home oxygen and home CPAP machine. She was in [facility] about a month ago, primarily for CHF, according to the family, and she was in this facility for 2 weeks. She has been home for a couple of weeks. Today, her oxygen saturation level was dropping and EMS was called. When they arrived at the scene. Patient's oxygen saturation was 60%. They applied BiPAP machine and transported the patient here. They started a nitroglycerin patch in route here. Upon arrival, patient is rather somnolent, but does awaken and tells me that she does not want to have a tube placed and put on a ventilator. She also told the nurse that, as well. History of atrial fibrillation. Patient was a cigarette smoker up until just recently when she went to stay with her sister after she got out of the hospital, but she agreed not to smoke anymore. Patient also has a distant history of breast cancer, greater than 10 years ago. No known recurrence. TRAVEL OUTSIDE OF THE [place] IN LAST 30 DAYS: No - Related Data Allergies/Adverse Reactions: bee pollen [Bee Pollen] Allergy (Unknown, Verified 01/14/13 20:15) venom-wasp [Wasp Venom] Allergy (Verified 01/14/13 20:15) Past Medical History - Social History Smoking Status: Former Smoker - Just stopped in the recent weeks. Family History: Reviewed & Not Pertinent, COPD, Hypertension - Past Medical History Cardiac Medical History: Reports: Hx Atrial Fibrillation, Hx Congestive Heart Failure, Hx Coronary Artery Disease, Hx Hypercholesterolemia, Hx Hypertension Pulmonary Medical History: Reports: Hx Bronchitis, Hx COPD - stage 3, Hx Pneumonia Malignancy Medical History: Reports: Hx Breast Cancer - right, over 10 years ago GI Medical History: Reports: Hx Ulcer Musculoskeltal Medical History: Reports Hx Arthritis, Reports Hx Musculoskeletal Deformity, Reports Hx Musculoskeletal Trauma Psychiatric Medical History: Reports: Hx Anxiety, Hx Depression Traumatic Medical History: Reports: Hx Fractures Past Surgical History: Reports: Hx Breast Surgery - lumpectomy, needle biopsy - Immunizations Immunizations up to date: Yes Hx Diphtheria, Pertussis, Tetanus Vaccination: Yes Review of Systems - Review of Systems Notes: REVIEW OF SYSTEMS: Patient is not able to provide this information, so requested from sister and other family members. CONSTITUTIONAL : Not sure if she has had a fever. EENT: Denies eye, ear, nose or mouth or throat pain or other symptoms. CARDIOVASCULAR: Denies chest pain. RESPIRATORY: See HPI. GASTROINTESTINAL: Denies abdominal pain or nausea, vomiting, or diarrhea. GENITOURINARY: Denies difficulty or painful urinating, urinary frequency, blood in urine. MUSCULOSKELETAL: Denies back or neck pain. Denies joint pain or swelling. SKIN: Denies rash or skin lesions. NEUROLOGICAL: Denies LOC, but decreased mental status. And sleepy today. Denies headache. Denies sensory loss or motor deficits. ALL OTHER SYSTEMS REVIEWED AND NEGATIVE. Physical Exam - Vital signs Vitals: Temp 100.6 F H 07/08/17 19:15 Interpretation: Normal, Other - Irregular pulse due to atrial fibrillation. - Notes Notes: PHYSICAL EXAMINATION: GENERAL: Patient has BiPAP on. Difficult to hear her responses to questions. Awakens easily. Understands what is being requested of her. Knows where she is and who she is and that she is in the hospital emergency department. To me, I think she is mentally competent to make decisions about her medical health care. Her sister does not wish for her to be a DNR. HEAD: Atraumatic, normocephalic. NECK: Normal range of motion, supple. LUNGS: Breath sounds decreased and more prominent on the right side and less prominent on the left side. HEART: Irregular rate and rhythm without murmurs. ABDOMEN: Soft, nontender. No guarding or rebound. BACK: No tenderness throughout entire back. EXTREMITIES: Normal range of motion without pain. No edema. NEUROLOGICAL: Patient moves all 4 extremities as requested. Understands questions and follows commands as best she can physically. Alert and oriented. PSYCH: Normal mood, normal affect. SKIN: Warm, dry, no rashes. Course - Re-evaluation Re-evalutation: 07/08/17 22:10 Patient was given a gram of Rocephin IV. I contacted Dr. Quinn, who is on-call for Dr. Morataya and patient will be admitted to [facility]. - Vital Signs Vital signs: Temp Pulse Resp BP Pulse Ox 100.7 F H 17 122/44 L 94 07/08/17 21:40 07/08/17 21:40 07/08/17 21:40 07/08/17 21:40 - Laboratory Result Diagrams: 07/08/17 19:20 07/08/17 19:20 Laboratory results interpreted by me: 07/08/17 07/08/17 07/08/17 19:20 19:20 19:20 RBC 3.41 L Hgb 10.5 L Hct 32.7 L RDW 18.3 H PT Carbonic Acid ABG pH ABG pCO2 ABG pO2 ABG HCO3 ABG Total CO2 ABG O2 Saturation Sodium 134.5 L Creatinine 1.30 H Est GFR ( Amer) 49 L Est GFR (Non-Af Amer) 40 L Glucose 141 H Direct Bilirubin 0.6 H Creatine Kinase 22 L NT-Pro-B Natriuret Pep 5900 H Urine Urobilinogen 07/08/17 07/08/17 07/08/17 19:20 19:20 20:38 RBC Hgb Hct RDW PT 32.5 H Carbonic Acid 2.16 H ABG pH 7.21 L ABG pCO2 71.6 H* ABG pO2 59.2 L ABG HCO3 28.0 H ABG Total CO2 30.2 H ABG O2 Saturation 84.0 L Sodium Creatinine Est GFR ( Amer) Est GFR (Non-Af Amer) Glucose Direct Bilirubin Creatine Kinase NT-Pro-B Natriuret Pep Urine Urobilinogen 2.0 H Critical Care Note - Critical Care Note Total time excluding time spent on procedures (mins): 60 Discharge - Discharge Clinical Impression: Respiratory insufficiency, COPD (chronic obstructive pulmonary disease), Acute and chronic respiratory failure ([id number]), COPD with exacerbation, Pleural effusion Condition: Serious Disposition: ADMITTED INPATIENT Admitting Provider: [facility] Unit Admitted: [facility]
[2017-07-08 19:43] LABS: PROTHROMBIN TIME 32.5 SEC (11.4-15.4)
--- NOTE | 2017-07-08 19:49 | RADIOLOGY REPORT (SQ) ---
EXAM DESCRIPTION: CHEST SINGLE VIEW COMPLETED DATE/TIME: 07/08/2017 7:30 pm REASON FOR STUDY: resp disttress COMPARISON: 06/12/2017 EXAM PARAMETERS: NUMBER OF VIEWS: One view. TECHNIQUE: Single frontal radiographic view of the chest acquired. RADIATION DOSE: NA LIMITATIONS: None. FINDINGS: LUNGS AND PLEURA: Large left pleural effusion, significantly increased since the prior gasper dy. Mild interstitial prominence bilaterally. Increased small right pleural effusion. No pneumotho rax. MEDIASTINUM AND HILAR STRUCTURES: Stable. HEART AND VASCULAR STRUCTURES: Stable cardiomegaly. BONES: No acute findings. HARDWARE: None in the chest. OTHER: No other significant finding. IMPRESSION: Large left pleural effusion, significantly increased since the prior study. Mild inters titial prominence bilaterally. Increased small right pleural effusion. TECHNICAL DOCUMENTATION: JOB ID: [id number]
[2017-07-08] MEDS ORDERED: CEFTRIAXONE 1 GM/D5W RTU 1 GM/50 ML RTUPB IV ONE (19:51)
[2017-07-08 19:56] LABS: ALANINE AMINOTRANSFERASE 25 U/L (9-52); ALBUMIN 3.7 g/dL (3.5-5.0); ALKALINE PHOSPHATASE 125 U/L (38-126); ANION GAP 7 (5-19); ASPARTATE AMINO TRANSFERASE 20 U/L (14-36); BILIRUBIN,DIRECT 0.6 mg/dL (0.0-0.4); BILIRUBIN,TOTAL 0.9 mg/dL (0.2-1.3); BLOOD UREA NITROGEN 20 mg/dL (7-20); CALCIUM 9.5 mg/dL (8.4-10.2); CARBON DIOXIDE 30 mmol/L (22-30); CHLORIDE 98 mmol/L (98-107); CREATINE KINASE 22 U/L (30-135); GLUCOSE 141 mg/dL (75-110); POTASSIUM 4.6 mmol/L (3.6-5.0); SODIUM 134.5 mmol/L (137-145); TOTAL PROTEIN 6.9 g/dL (6.3-8.2)
[2017-07-08 20:08] LABS: CREATINE KINASE MB 1.24 ng/mL (<4.55); TROPONIN I < 0.012 ng/mL
[2017-07-08 20:52] LABS: APPEARANCE,URINE CLEAR; BILIRUBIN,URINE NEGATIVE (NEGATIVE); GLUCOSE, URINE NEGATIVE (NEGATIVE); KETONES,URINE NEGATIVE (NEGATIVE); LEUKOCYTE ESTERASE,URINE NEGATIVE (NEGATIVE); NITRITE,URINE NEGATIVE (NEGATIVE); PROTEIN,URINE NEGATIVE (NEGATIVE); URINE SPECIFIC GRAVITY 1.009
[2017-07-08 20:58] LABS: WBC,URINE NONE SEEN /HPF
--- NOTE | 2017-07-08 21:14 | EKG REPORT ---
SEVERITY:- ABNORMAL ECG - ATRIAL FIBRILLATION BORDERLINE LEFT AXIS DEVIATION PROBABLE ANTEROSEPTAL INFARCT, OLD BORDERLINE T ABNORMALITIES, INFERIOR LEADS : Confirmed by: Farnaz Aceves 08-Jul-2017 21:13:14
[2017-07-09] MEDS ORDERED: INFLUENZA ADLT QUAD (36MOS+) 2017-18 VAC 0.5 ML SYR IM PRN (02:06)
[2017-07-09 03:30] LABS: ARTERIAL BLOOD BASE EXCESS 1.1 mmol/L; ARTERIAL BLOOD O2 SATURATION 95.7 % (94-98)
[2017-07-09] MEDS ORDERED: IPRATROPIUM/ALBUTEROL 0.5-2.5 MG/3 ML AMPUL NEB PRN (03:39)
[2017-07-09] MEDS ORDERED: METHYLPREDNISOLONE INJ 125 MG/2 ML SDV ONE (03:50)
[2017-07-09] MEDS: IPRATROPIUM/ALBUTEROL 0.5-2.5 MG/3 ML AMPUL NEB SCH ×5 (04:07→20:43)
[2017-07-09] MEDS: METHYLPREDNISOLONE INJ 125 MG/2 ML SDV IV SCH ×3 (05:17→21:31)
[2017-07-09 06:49] LABS: HEMATOCRIT 32.8 % (36.0-47.0); HEMOGLOBIN 10.5 g/dL (12.0-15.5); HGB HCT DIFFERENCE -1.3; MEAN CORPUSCULAR HEMOGLOBIN 30.3 pg (27.0-33.4); MEAN CORPUSCULAR HGB CONC 32.1 g/dL (32.0-36.0); MEAN CORPUSCULAR VOLUME 94 fl (80-97); RED BLOOD COUNT 3.47 10^6/uL (3.72-5.28); RED CELL DISTRIBUTION WIDTH 18.6 % (11.5-14.0); WHITE BLOOD COUNT 7.8 10^3/uL (4.0-10.5)
[2017-07-09 07:09] LABS: ALANINE AMINOTRANSFERASE 20 U/L (9-52); ALBUMIN 3.7 g/dL (3.5-5.0); ALKALINE PHOSPHATASE 127 U/L (38-126); ANION GAP 8 (5-19); ASPARTATE AMINO TRANSFERASE 27 U/L (14-36); BILIRUBIN,DIRECT 0.7 mg/dL (0.0-0.4); BILIRUBIN,TOTAL 0.9 mg/dL (0.2-1.3); BLOOD UREA NITROGEN 21 mg/dL (7-20); CALCIUM 9.7 mg/dL (8.4-10.2); CARBON DIOXIDE 28 mmol/L (22-30); CHLORIDE 100 mmol/L (98-107); CREATININE RESULT 1.05 mg/dL (0.52-1.25); GLUCOSE 109 mg/dL (75-110); POTASSIUM 4.8 mmol/L (3.6-5.0); SODIUM 135.9 mmol/L (137-145); TOTAL PROTEIN 6.8 g/dL (6.3-8.2)
--- NOTE | 2017-07-09 13:36 | Physician Advisory Note ---
Physician Advisor ProgressNote .: [facility] I have reviewed the medical record for this patient. Physician Advisor Statement: Please consider documentin. "Acute on Chronic Resp Failure, Hypercapneic & Hypoxemic type, evidenced by labored irregular breathing in triage & initial O2 sat 60% on 2L O2, and associated with Acute Respiratory Acidosis" - Is 2L her usual amount of O2? 2. "ARF, likely due to ___; baseline Cr 0.81" [intravascular volume depletion ?] 3. "Acute hyponatremia, likely due to ____" [intravascular volume depletion?] 4. "chronic diastolic CHF", + "severe pulmonary hypertension", "moderate MR & Mod-severe TR" (ECHO 2016) 5. "Chronic Afib" [vs. "paroxysmal Afib"] 6. 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 Medical necessity: "Pt still w/labored breathing today, still quite symptomatic, not back to baseline in her breathing or renal function." Status: 72yo Medicare pt with underlying chronic hypoxemic & hypercarbic resp failure needing O2 & CPAP at home, chr diast CHF, severe pulm HTN, mod MR & mod- severe TR, chr Afib, COPD severe, CAD, HTN, HLD, prior breast CA, underweight with likely mod-sev malnutrition, presented in acute resp acidosis/acute resp failure, with findings as above, requiring Bipap to get her sats >90%, with ARF & Ac hyponatremia as well. Clearly sick enough to be expected from the day of arrival to need at least 2 MNs of hospital monitoring & care. After 1 night in hospital, she still has Na & Cr not back to baseline. Nursing assessment this AM indicates pt still w/labored breathing, still requiring Bipap to support her breathing, still w/BECKETT & unable to lie flat. Clearly not clinically safe to d/c home today. Appropriate for Inpt status. CK
--- NOTE | 2017-07-09 18:21 | PDOC H&P ---
History of Present Illness Admission Date/PCP: 07/09/17 03:10 Patient complains of: Difficulty with breathing History of Present Illness: JUNAID VILCHIS is a 72 year old female known to my practice brought to the ED by EMS crew due to worsening difficulty with driving and reported hypoxemia. Sister at bedside attested to her compliance with Trilogy vent at home while sleeping and use of supplemental oxygen. She denied current cigarette smoking. There is associated generalized weakness and loss of balance with ambulation prior to activating EMS service. She denied any fever or chills. No chest pain. No nausea, vomiting or abdominal pain. Her appetite and oral intake remain a challenge. She was found with oxygen saturation at 60% at home by the EMS. Sister reported home oxygen level has been going down as the day progress prior to EMS arrival. She activated the EMS service due to patient becoming so week and not able to bear her own weight. Her morbidities include recent diagnosis of CHF, Chronic Atrial Fibrillation, Hypertension, Hyperlipidemia, End stage COPD with chronic respiratory failure with hypercapnia and hypoxemia, Osteoarthritis, and Depression. Past Medical History Cardiac Medical History: Reports: Atrial Fibrillation, Congestive Heart Failure , Coronary Artery Disease, Hyperlipidema, Hypertension Pulmonary Medical History: Reports: Bronchitis, Chronic Obstructive Pulmonary Disease (COPD) - stage 3, Pneumonia Malignancy Medical History: Reports: Breast Cancer - right, over 10 years ago Musculoskeltal Medical History: Reports: Arthritis Psychiatric Medical History: Reports: Depression Social History Smoking Status: Former Smoker Number of Years Smokin Last Time Smoked: 06/08/2017 Frequency of Alcohol Use: None Hx Recreational Drug Use: No Drugs: None Hx Prescription Drug Abuse: No Family History Family History: Reviewed & Not Pertinent, COPD, Hypertension Parental Family History Reviewed: Yes Children Family History Reviewed: Yes Sibling(s) Family History Reviewed.: Yes Medication/Allergy Home Medications: Albuterol Sulfate [Proair HFA] 2 puff IH Q4HP PRN 06/11/17 Atorvastatin Calcium [Lipitor 40 mg Tablet] 40 mg PO QHS 06/11/17 Calcium Carbonate/Vitamin D3 [Oyster Shell 500-Vit D3 200 Tb] 1 each PO DAILY Citalopram Hydrobromide [Celexa 20 mg Tablet] 20 mg PO DAILY 06/11/17 Metoprolol Succinate [Toprol Xl 25 mg Tab.sr] 25 mg PO DAILY 06/11/17 Pantoprazole Sodium [Protonix] 40 mg PO DAILY 06/11/17 Warfarin Sodium [Coumadin 3 mg Tablet] 3 mg PO QPM 06/11/17 Acetazolamide [Diamox Sequel 500 mg] 500 mg PO DAILY #30 capsule.sa 06/20/17 Diltiazem HCl [Cardizem Cd 120 mg Capsule] 120 mg PO DAILY #30 cap.sr.24h Benzonatate [Tessalon Perle 100 mg Capsule] 100 mg PO Q8 07/09/17 Docusate Sodium [Colace 100 mg Capsule] 100 mg PO DAILYP PRN 07/09/17 Latanoprost [Xalatan] 1 drop OU QHS 07/09/17 Nicotine [Nicotine Patch] 1 patch TD DAILY 07/09/17 Oxycodone HCl [Oxycontin] 60 mg PO Q12 07/09/17 Oxycodone HCl/Acetaminophen [Oxycodon-Acetaminophen 7.5-325] 1 tab PO Q4HP PRN 07/09/17 Tiotropium [place] [Spiriva Handihaler 18 mcg/dose (30 Dose)] 1 cap IN DAILY 11/24 Tizanidine HCl [Zanaflex] 4 mg PO Q8 07/09/17 Valsartan [Diovan 40 mg Tablet] 40 mg PO DAILY 07/09/17 Allergies/Adverse Reactions: bee pollen [Bee Pollen] Allergy (Unknown, Verified 01/14/13 20:15) propoxyphene [From Darvocet-N] Allergy (Verified 07/09/17 01:55) venom-wasp [Wasp Venom] Allergy (Verified 01/14/13 20:15) Review of Systems Constitutional: PRESENT: fatigue, weakness Eyes: PRESENT: visual disturbances Nose, Mouth, and Throat: PRESENT: other - expressed difficulty with swallowing her food this evening. ABSENT: as per HPI, headache(s), mouth pain, sore throat , vertigo Cardiovascular: ABSENT: chest pain, dyspnea on exertion, edema, orthropnea, palpitations Respiratory: PRESENT: dyspnea - due to End stage COPD Gastrointestinal: PRESENT: other - difficulty with swallowing food. 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, depression Endocrine: ABSENT: cold intolerance, heat intolerance, polydipsia, polyuria Hematologic/Lymphatic: ABSENT: easy bleeding, easy bruising, lymphadenopathy Allergic/Immunologic: PRESENT: seasonal rhinorrhea Physical Exam Vital Signs: Temp Pulse Resp BP Pulse Ox 97.5 F 73 24 H 106/49 L 94 07/09/17 16:04 07/09/17 16:12 07/09/17 16:12 07/09/17 16:04 07/09/17 17:32 Intake & Output 07/08/17 07/09/17 07/10/17 06:59 06:59 06:59 Intake Total 12 328 Output Total 450 400 Balance -438 -72 General appearance: PRESENT: cooperative, mild distress - on supplemental oxygen via nasal cannula Head exam: PRESENT: atraumatic, normocephalic Eye exam: PRESENT: conjunctiva pink, EOMI, PERRLA. ABSENT: scleral icterus Ear exam: PRESENT: normal external ear exam Mouth exam: PRESENT: moist, tongue midline Teeth exam: PRESENT: poor dentation Throat exam: ABSENT: post pharyngeal erythema, tonsillar erythema, tonsillar exudate, tonsillogmegaly, other Neck exam: PRESENT: full ROM. ABSENT: carotid bruit, JVD, lymphadenopathy, thyromegaly Respiratory exam: PRESENT: decreased breath sounds - at lung bases, prolonged expiratory phas Cardiovascular exam: PRESENT: RRR. ABSENT: diastolic murmur, rubs, systolic murmur Pulses: PRESENT: normal dorsalis pedis pul, +2 pedal pulses bilateral Vascular exam: PRESENT: normal capillary refill. ABSENT: pallor GI/Abdominal exam: PRESENT: normal bowel sounds, soft. ABSENT: distended, guarding, mass, organolmegaly, rebound, tenderness Rectal exam: PRESENT: deferred Gentrourinary exam: PRESENT: indwelling catheter Extremities exam: ABSENT: pedal edema Musculoskeletal exam: PRESENT: deformity - of arthritis involving multiple joints Neurological exam: PRESENT: alert, awake, oriented to person, oriented to place , oriented to time, oriented to situation, CN II-XII grossly intact. ABSENT: motor sensory deficit Psychiatric exam: PRESENT: appropriate affect, normal mood. ABSENT: homicidal ideation, suicidal ideation Skin exam: PRESENT: dry, intact, warm. ABSENT: cyanosis, rash Results Laboratory Results: 07/09/17 06:24 07/09/17 06:24 07/09/17 07/09/17 07/09/17 03:15 06:24 06:24 WBC 7.8 RBC 3.47 L Hgb 10.5 L Hct 32.8 L MCV 94 MCH 30.3 MCHC 32.1 RDW 18.6 H Plt Count 153 Carbonic Acid 1.93 H HCO3/H2CO3 Ratio 14:1 ABG pH 7.27 L ABG pCO2 64.1 H ABG pO2 91.5 ABG HCO3 28.9 H ABG O2 Saturation 95.7 ABG Base Excess 1.1 FiO2 40% Sodium 135.9 L Potassium 4.8 Chloride 100 Carbon Dioxide 28 Anion Gap 8 BUN 21 H Creatinine 1.05 Est GFR ( Amer) > 60 Est GFR (Non-Af Amer) 52 L Glucose 109 Calcium 9.7 Total Bilirubin 0.9 AST 27 ALT 20 Alkaline Phosphatase 127 H Total Protein 6.8 Albumin 3.7 Impressions: Chest X-Ray 07/08/17 19:15 IMPRESSION: Large left pleural effusion, significantly increased since the prior study. Mild interstitial prominence bilaterally. Increased small right pleural effusion. Assessment & Plan - Diagnosis (1) Acute and chronic respiratory failure ([id number]) Qualifiers: Respiratory failure complication: hypoxia and hypercapnia Qualified Code(s) : J96.21 - Acute and chronic respiratory failure with hypoxia; J96.22 - Acute and chronic respiratory failure with hypercapnia; J96.22 - Acute and chronic respiratory failure with hypercapnia; J96.22 - Acute and chronic respiratory failure with hypercapnia Is this a current diagnosis for this admission?: Yes Plan: See admitting attending physician orders. (2) CO2 narcosis Is this a current diagnosis for this admission?: Yes Plan: See admitting attending physician orders. (3) COPD (chronic obstructive pulmonary disease) Qualifiers: COPD type: COPD with acute exacerbation Qualified Code(s): J44.1 - Chronic obstructive pulmonary disease with (acute) exacerbation Is this a current diagnosis for this admission?: Yes Plan: See admitting attending physician orders. (4) Acute renal injury due to hypovolemia Is this a current diagnosis for this admission?: Yes Plan: See admitting attending physician orders. (5) Hyponatremia with extracellular fluid depletion Is this a current diagnosis for this admission?: Yes Plan: See admitting attending physician orders. (6) Congestive heart failure (CHF) Qualifiers: Congestive heart failure type: diastolic Congestive heart failure chronicity: chronic Qualified Code(s): I50.32 - Chronic diastolic (congestive ) heart failure Is this a current diagnosis for this admission?: Yes Plan: See admitting attending physician orders. (7) Chronic atrial fibrillation Is this a current diagnosis for this admission?: Yes Plan: See admitting attending physician orders. - Time Time Spent: Greater than 70 Minutes Smoking Cessation Education: 3 to 10 minutes Medications reviewed and adjusted accordingly: Yes Anticipated discharge: SNF - for short term rehabilitation Within: Other - Inpatient Certification Based on my medical assessment, after consideration of the patient's comorbidities, presenting symptoms, or acuity I expect that the services needed warrant INPATIENT care.: Yes I certify that my determination is in accordance with my understanding of Medicare's requirements for reasonable and necessary INPATIENT services [42 CFR 412.3e].: Yes Medical Necessity: Need Close Monitoring Due to Risk of Patient Decompensation, Need For IV Fluids, Need For Continuous Telemetry Monitoring, Need for Nebulizer Therapy and Monitoring of Response, Need for IV Antibiotics, Risk of Complication if Not Cared For in Hospital Post Hospital Care: 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
[2017-07-09] MEDS ORDERED: (PENDING PHARMACY ID) (Warfarin Sodium 3 MG) PO SCH (18:30)
[2017-07-09] MEDS ORDERED: WARFARIN SODIUM 3 MG TABLET PO ONE (19:30)
[2017-07-09] MEDS: LATANOPROST 0.005% OPH SOLN 2.5 ML OU SCH ×2 (21:32→22:01)
[2017-07-09] MEDS: GUAIFENESIN 600 MG TABLET.SA PO SCH (21:32)
[2017-07-09] MEDS: ATORVASTATIN CALCIUM 40 MG TABLET PO SCH (21:32)
[2017-07-09] MEDS: ACETAMINOPHEN 325 MG TABLET PO PRN (22:43)
[2017-07-10] MEDS: IPRATROPIUM/ALBUTEROL 0.5-2.5 MG/3 ML AMPUL NEB SCH ×7 (00:30→23:44)
[2017-07-10 05:06] LABS: HEMATOCRIT 31.1 % (36.0-47.0); HEMOGLOBIN 10.2 g/dL (12.0-15.5); HGB HCT DIFFERENCE -0.5; MEAN CORPUSCULAR HEMOGLOBIN 30.2 pg (27.0-33.4); MEAN CORPUSCULAR HGB CONC 32.7 g/dL (32.0-36.0); MEAN CORPUSCULAR VOLUME 92 fl (80-97); RED BLOOD COUNT 3.37 10^6/uL (3.72-5.28); RED CELL DISTRIBUTION WIDTH 18.8 % (11.5-14.0); WHITE BLOOD COUNT 13.4 10^3/uL (4.0-10.5)
[2017-07-10 05:28] LABS: ALANINE AMINOTRANSFERASE 28 U/L (9-52); ALBUMIN 3.5 g/dL (3.5-5.0); ALKALINE PHOSPHATASE 111 U/L (38-126); ANION GAP 13 (5-19); ASPARTATE AMINO TRANSFERASE 13 U/L (14-36); BILIRUBIN,DIRECT 0.5 mg/dL (0.0-0.4); BILIRUBIN,TOTAL 0.6 mg/dL (0.2-1.3); BLOOD UREA NITROGEN 21 mg/dL (7-20); CALCIUM 9.4 mg/dL (8.4-10.2); CARBON DIOXIDE 24 mmol/L (22-30); CHLORIDE 98 mmol/L (98-107); CREATININE RESULT 0.86 mg/dL (0.52-1.25); GLUCOSE 227 mg/dL (75-110); SODIUM 134.6 mmol/L (137-145); TOTAL PROTEIN 6.3 g/dL (6.3-8.2)
[2017-07-10] MEDS: METHYLPREDNISOLONE INJ 125 MG/2 ML SDV IV SCH ×3 (05:39→21:06)
[2017-07-10] MEDS: LANSOPRAZOLE 30 MG TAB.RAP.DR PO SCH (05:40)
[2017-07-10 05:43] LABS: POTASSIUM 3.6 mmol/L (3.6-5.0)
[2017-07-10 05:51] LABS: BAND NEUTROPHILS % (MANUAL) 3 % (3-5); BASOPHILS % (MANUAL) 0 % (0-2); EOSINOPHILS % (MANUAL) 0 % (0-6); LYMPHOCYTES % (MANUAL) 4 % (13-45); TOTAL CELLS COUNTED 100
[2017-07-10 05:58] LABS: TOXIC GRANULATION SLIGHT; TOXIC VACUOLATION PRESENT
[2017-07-10 05:59] LABS: ANISOCYTOSIS 2+
[2017-07-10 06:00] LABS: OVALOCYTES SLIGHT; PLATELET CLUMPS PRESENT; POIKILOCYTOSIS 1+; POLYCHROMASIA SLIGHT; TARGET CELLS SLIGHT; TEAR DROP CELLS SLIGHT
[2017-07-10] MEDS: TIOTROPIUM BROMIDE DPI 5 CAP/KIT (18 MCG/CAP) IH SCH (09:34)
[2017-07-10] MEDS: ACETAZOLAMIDE 500 MG CAPSULE.SA PO SCH (09:34)
[2017-07-10] MEDS: CALCIUM CARBONATE 250 MG/VITAMIN D3 125 UNIT TABLET PO SCH (09:35)
[2017-07-10] MEDS: DILTIAZEM HCL 120 MG CAP.SR.24H PO SCH (09:36)
[2017-07-10] MEDS: VALSARTAN 40 MG TABLET PO SCH (09:36)
[2017-07-10] MEDS: CITALOPRAM HYDROBROMIDE 20 MG TABLET PO SCH (09:36)
[2017-07-10] MEDS: GUAIFENESIN 600 MG TABLET.SA PO SCH ×2 (09:36→21:08)
[2017-07-10] MEDS: NICOTINE 7 MG/24 HR PATCH.TD24 TD SCH (09:37)
[2017-07-10] MEDS: METOPROLOL SUCCINATE 25 MG TAB.SR.24H PO SCH (09:37)
[2017-07-10] MEDS ORDERED: (PENDING PHARMACY ID) (Calcium Carbonate/Vitamin D3 [Oyster Shell 500-Vit D3 200 Tb] 1 EAC PO SCH (10:00)
[2017-07-10] MEDS: WARFARIN SODIUM 3 MG TABLET PO SCH (17:48)
[2017-07-10] MEDS: DOCUSATE SODIUM 100 MG CAPSULE PO PRN (17:48)
--- NOTE | 2017-07-10 18:25 | PDOC PROGRESS REPORT ---
Subjective Progress Note for:: 07/10/17 Subjective:: Patient remain on intermittent use of BiPAP with episode of oxygen de- saturation earlier this morning. She denied any chest pain. No reported fever or chills. No nausea or vomiting. She was evaluated by speech pathologist earlier today without any significant findings except difficulty with chewing. She is requesting for opiate usage for chronic pain management. I had extensive discussion with her regarding my concern about opiate usage with her respiratory limitation and circumstances of her admission. Physical Exam Vital Signs: Temp Pulse Resp BP Pulse Ox 98.5 F 81 24 H 117/57 L 95 07/10/17 16:11 07/10/17 16:11 07/10/17 16:11 07/10/17 16:11 07/10/17 16:11 Intake & Output 07/09/17 07/10/17 07/11/17 06:59 06:59 06:59 Intake Total 12 1093 400 Output Total 450 1750 900 Balance -438 -657 -500 Weight 47 kg General appearance: PRESENT: no acute distress, mild distress - remain on supplemental oxygen. Head exam: PRESENT: atraumatic, normocephalic Eye exam: PRESENT: conjunctiva pink, EOMI, PERRLA. ABSENT: scleral icterus Mouth exam: PRESENT: moist Teeth exam: PRESENT: poor dentation Respiratory exam: PRESENT: decreased breath sounds, prolonged expiratory phas, rhonchi - minimal expiratory phase Cardiovascular exam: PRESENT: irregular rhythm, +S1, +S2. ABSENT: diastolic murmur, rubs, systolic murmur Vascular exam: PRESENT: normal capillary refill. ABSENT: pallor GI/Abdominal exam: PRESENT: normal bowel sounds, soft. ABSENT: distended, guarding, mass, organolmegaly, rebound, tenderness Extremities exam: ABSENT: pedal edema Musculoskeletal exam: PRESENT: deformity - realetd to joint involvement with arthritis Neurological exam: PRESENT: alert, awake, oriented to person, oriented to place , oriented to time, oriented to situation, CN II-XII grossly intact. ABSENT: motor sensory deficit Psychiatric exam: PRESENT: appropriate affect, normal mood. ABSENT: homicidal ideation, suicidal ideation Skin exam: PRESENT: dry, intact, warm. ABSENT: cyanosis, rash Results Laboratory Results: 07/10/17 04:46 07/10/17 04:46 07/10/17 07/10/17 04:46 04:46 WBC 13.4 H RBC 3.37 L Hgb 10.2 L Hct 31.1 L MCV 92 MCH 30.2 MCHC 32.7 RDW 18.8 H Plt Count 168 Seg Neutrophils % Not Reportable Lymphocytes % Not Reportable Monocytes % Not Reportable Eosinophils % Not Reportable Basophils % Not Reportable Absolute Neutrophils Not Reportable Absolute Lymphocytes Not Reportable Absolute Monocytes Not Reportable Absolute Eosinophils Not Reportable Absolute Basophils Not Reportable Sodium 134.6 L Potassium 3.6 D Chloride 98 Carbon Dioxide 24 Anion Gap 13 BUN 21 H Creatinine 0.86 Est GFR ( Amer) > 60 Est GFR (Non-Af Amer) > 60 Glucose 227 H Calcium 9.4 Total Bilirubin 0.6 AST 13 L ALT 28 Alkaline Phosphatase 111 Total Protein 6.3 Albumin 3.5 Impressions: Chest X-Ray 07/08/17 19:15 IMPRESSION: Large left pleural effusion, significantly increased since the prior study. Mild interstitial prominence bilaterally. Increased small right pleural effusion. Assessment & Plan - Diagnosis (1) Acute and chronic respiratory failure ([id number]) Qualifiers: Respiratory failure complication: hypoxia and hypercapnia Qualified Code(s) : J96.21 - Acute and chronic respiratory failure with hypoxia; J96.22 - Acute and chronic respiratory failure with hypercapnia; J96.22 - Acute and chronic respiratory failure with hypercapnia; J96.22 - Acute and chronic respiratory failure with hypercapnia Is this a current diagnosis for this admission?: Yes (2) CO2 narcosis Is this a current diagnosis for this admission?: Yes (3) COPD (chronic obstructive pulmonary disease) Qualifiers: COPD type: COPD with acute exacerbation Qualified Code(s): J44.1 - Chronic obstructive pulmonary disease with (acute) exacerbation Is this a current diagnosis for this admission?: Yes (4) Acute renal injury due to hypovolemia Is this a current diagnosis for this admission?: Yes (5) Hyponatremia with extracellular fluid depletion Is this a current diagnosis for this admission?: Yes (6) Congestive heart failure (CHF) Qualifiers: Congestive heart failure type: diastolic Congestive heart failure chronicity: chronic Qualified Code(s): I50.32 - Chronic diastolic (congestive ) heart failure Is this a current diagnosis for this admission?: Yes (7) Chronic atrial fibrillation Is this a current diagnosis for this admission?: Yes - Time Time Spent with patient: 25-34 minutes Medications reviewed and adjusted accordingly: Yes Anticipated discharge: SNF - for short term rehabilitation upon discharge Within: Other - Inpatient Certification Based on my medical assessment, after consideration of the patient's comorbidities, presenting symptoms, or acuity I expect that the services needed warrant INPATIENT care.: Yes I certify that my determination is in accordance with my understanding of Medicare's requirements for reasonable and necessary INPATIENT services [42 CFR 412.3e].: Yes Medical Necessity: Need Close Monitoring Due to Risk of Patient Decompensation, Need For IV Fluids, Need For Continuous Telemetry Monitoring, Need for Nebulizer Therapy and Monitoring of Response, Risk of Complication if Not Cared For in Hospital Post Hospital Care: D/C or Transfer Summary - Plan Summary Plan Summary: See attending physician orders. D/C Peter cath with use of bedside commode. Decrease IV Solu Medrol to 80 mg [id number] with further tapering as her breathing improve. Obtain PT/INR check for Coumadin therapy. PT evaluation for mobilization. Keep on mechanical soft diet to maintain adequate nutrition. Continue all other current medication management. Request for discharge /licensed master social worker input regarding short term rehabilitation upon discharge.
[2017-07-10] MEDS: ATORVASTATIN CALCIUM 40 MG TABLET PO SCH (21:07)
[2017-07-10] MEDS: ACETAMINOPHEN 325 MG TABLET PO PRN (21:07)
[2017-07-11] MEDS: IPRATROPIUM/ALBUTEROL 0.5-2.5 MG/3 ML AMPUL NEB SCH ×6 (03:51→23:53)
[2017-07-11] MEDS: LANSOPRAZOLE 30 MG TAB.RAP.DR PO SCH (05:21)
[2017-07-11] MEDS: ACETAMINOPHEN 325 MG TABLET PO PRN ×3 (05:22→22:13)
[2017-07-11] MEDS: METHYLPREDNISOLONE INJ 125 MG/2 ML SDV IV SCH ×3 (05:22→22:09)
[2017-07-11 05:50] LABS: PROTHROMBIN TIME 32.9 SEC (11.4-15.4)
[2017-07-11] MEDS: TIOTROPIUM BROMIDE DPI 5 CAP/KIT (18 MCG/CAP) IH SCH (09:58)
[2017-07-11] MEDS: ACETAZOLAMIDE 500 MG CAPSULE.SA PO SCH (09:58)
[2017-07-11] MEDS: NICOTINE 7 MG/24 HR PATCH.TD24 TD SCH (09:58)
[2017-07-11] MEDS: CITALOPRAM HYDROBROMIDE 20 MG TABLET PO SCH (09:58)
[2017-07-11] MEDS: VALSARTAN 40 MG TABLET PO SCH (09:59)
[2017-07-11] MEDS: CALCIUM CARBONATE 250 MG/VITAMIN D3 125 UNIT TABLET PO SCH (09:59)
[2017-07-11] MEDS: GUAIFENESIN 600 MG TABLET.SA PO SCH ×2 (10:00→22:09)
[2017-07-11] MEDS: METOPROLOL SUCCINATE 25 MG TAB.SR.24H PO SCH (10:00)
[2017-07-11] MEDS: DOCUSATE SODIUM 100 MG CAPSULE PO PRN (10:00)
[2017-07-11] MEDS: DILTIAZEM HCL 120 MG CAP.SR.24H PO SCH (10:00)
[2017-07-11] MEDS: WARFARIN SODIUM 3 MG TABLET PO SCH (17:35)
--- NOTE | 2017-07-11 18:30 | PDOC PROGRESS REPORT ---
Subjective Progress Note for:: 07/11/17 Subjective:: No chest pain. There is reported increasing difficulty with her sentencing due to shortness of breath. No reported fever or chills. No nausea or vomiting. She participating in bedside transfer and ambulate in room with assistance. Physical Exam Vital Signs: Temp Pulse Resp BP Pulse Ox 98.3 F 106 H 20 145/93 H 95 07/11/17 17:04 07/11/17 17:04 07/11/17 17:04 07/11/17 17:04 07/11/17 17:04 Intake & Output 07/10/17 07/11/17 07/12/17 06:59 06:59 06:59 Intake Total 1093 2122 200 Output Total 1750 1900 500 Balance -657 222 -300 Weight 47 kg Physical Exam: General appearance: PRESENT: no acute distress, mild distress - remain on supplemental oxygen. Head exam: PRESENT: atraumatic, normocephalic Eye exam: PRESENT: conjunctiva pink, EOMI, PERRLA. ABSENT: scleral icterus Mouth exam: PRESENT: moist Teeth exam: PRESENT: poor dentition Respiratory exam: PRESENT: decreased breath sounds bilateral lower lung bases, prolonged expiratory phase, rhonchi - minimal expiratory phase Cardiovascular exam: PRESENT: irregular rhythm, +S1, +S2. ABSENT: diastolic murmur, rubs, systolic murmur Vascular exam: PRESENT: normal capillary refill. ABSENT: pallor GI/Abdominal exam: PRESENT: normal bowel sounds, soft. ABSENT: distended, guarding, mass, organomegaly, rebound, tenderness Extremities exam: ABSENT: pedal edema Musculoskeletal exam: PRESENT: deformity - related to joint involvement with arthritis Neurological exam: PRESENT: alert, awake, oriented to person, oriented to place , oriented to time, oriented to situation, CN II-XII grossly intact. ABSENT: motor sensory deficit Psychiatric exam: PRESENT: appropriate affect, normal mood. ABSENT: homicidal ideation, suicidal ideation Skin exam: PRESENT: dry, intact, warm. ABSENT: cyanosis, rash Results Laboratory Results: 07/10/17 04:46 07/10/17 04:46 Impressions: Chest X-Ray 07/08/17 19:15 IMPRESSION: Large left pleural effusion, significantly increased since the prior study. Mild interstitial prominence bilaterally. Increased small right pleural effusion. Assessment & Plan - Diagnosis (1) Acute and chronic respiratory failure ([id number]) Qualifiers: Respiratory failure complication: hypoxia and hypercapnia Qualified Code(s) : J96.21 - Acute and chronic respiratory failure with hypoxia; J96.22 - Acute and chronic respiratory failure with hypercapnia; J96.22 - Acute and chronic respiratory failure with hypercapnia; J96.22 - Acute and chronic respiratory failure with hypercapnia Is this a current diagnosis for this admission?: Yes (2) CO2 narcosis Is this a current diagnosis for this admission?: Yes (3) COPD (chronic obstructive pulmonary disease) Qualifiers: COPD type: COPD with acute exacerbation Qualified Code(s): J44.1 - Chronic obstructive pulmonary disease with (acute) exacerbation Is this a current diagnosis for this admission?: Yes (4) Acute renal injury due to hypovolemia Is this a current diagnosis for this admission?: Yes (5) Hyponatremia with extracellular fluid depletion Is this a current diagnosis for this admission?: Yes (6) Congestive heart failure (CHF) Qualifiers: Congestive heart failure type: diastolic Congestive heart failure chronicity: chronic Qualified Code(s): I50.32 - Chronic diastolic (congestive ) heart failure Is this a current diagnosis for this admission?: Yes (7) Chronic atrial fibrillation Is this a current diagnosis for this admission?: Yes - Time Time Spent with patient: 25-34 minutes Medications reviewed and adjusted accordingly: Yes Anticipated discharge: SNF Within: Other - Inpatient Certification Based on my medical assessment, after consideration of the patient's comorbidities, presenting symptoms, or acuity I expect that the services needed warrant INPATIENT care.: Yes I certify that my determination is in accordance with my understanding of Medicare's requirements for reasonable and necessary INPATIENT services [42 CFR 412.3e].: Yes Medical Necessity: Need Close Monitoring Due to Risk of Patient Decompensation, Need For Continuous Telemetry Monitoring, Need for Nebulizer Therapy and Monitoring of Response, Risk of Complication if Not Cared For in Hospital Post Hospital Care: D/C [employer] Documentation - Plan Summary Plan Summary: See attending physician others.
[2017-07-11] MEDS: ATORVASTATIN CALCIUM 40 MG TABLET PO SCH (22:09)
[2017-07-11] MEDS: LATANOPROST 0.005% OPH SOLN 2.5 ML OU SCH (22:10)
[2017-07-12] MEDS: IPRATROPIUM/ALBUTEROL 0.5-2.5 MG/3 ML AMPUL NEB SCH ×5 (03:50→19:51)
[2017-07-12] MEDS: LANSOPRAZOLE 30 MG TAB.RAP.DR PO SCH (06:13)
[2017-07-12] MEDS: METHYLPREDNISOLONE INJ 125 MG/2 ML SDV IV SCH ×2 (06:13→14:13)
[2017-07-12 06:29] LABS: HEMOGLOBIN 11.2 g/dL (12.0-15.5); HGB HCT DIFFERENCE -1.4; MEAN CORPUSCULAR HEMOGLOBIN 29.4 pg (27.0-33.4); MEAN CORPUSCULAR HGB CONC 31.9 g/dL (32.0-36.0); MEAN CORPUSCULAR VOLUME 92 fl (80-97); RED BLOOD COUNT 3.79 10^6/uL (3.72-5.28); RED CELL DISTRIBUTION WIDTH 18.7 % (11.5-14.0)
[2017-07-12 06:37] LABS: ALANINE AMINOTRANSFERASE 32 U/L (9-52); ALBUMIN 3.7 g/dL (3.5-5.0); ALKALINE PHOSPHATASE 103 U/L (38-126); ANION GAP 12 (5-19); ASPARTATE AMINO TRANSFERASE 23 U/L (14-36); BILIRUBIN,DIRECT 0.5 mg/dL (0.0-0.4); BILIRUBIN,TOTAL 0.8 mg/dL (0.2-1.3); BLOOD UREA NITROGEN 23 mg/dL (7-20); CALCIUM 9.8 mg/dL (8.4-10.2); CARBON DIOXIDE 25 mmol/L (22-30); CHLORIDE 102 mmol/L (98-107); CREATININE RESULT 0.69 mg/dL (0.52-1.25); GLUCOSE 150 mg/dL (75-110); POTASSIUM 3.2 mmol/L (3.6-5.0); PROTHROMBIN TIME 24.9 SEC (11.4-15.4); SODIUM 138.9 mmol/L (137-145); TOTAL PROTEIN 6.6 g/dL (6.3-8.2)
[2017-07-12 06:58] LABS: BASOPHILS % (MANUAL) 0 % (0-2); EOSINOPHILS % (MANUAL) 0 % (0-6); LYMPHOCYTES % (MANUAL) 3 % (13-45); TOTAL CELLS COUNTED 100
[2017-07-12 07:00] LABS: HYPOCHROMASIA SLIGHT; POLYCHROMASIA SLIGHT; TOXIC GRANULATION SLIGHT
[2017-07-12 07:01] LABS: ANISOCYTOSIS 1+; OVALOCYTES SLIGHT; POIKILOCYTOSIS SLIGHT; TARGET CELLS SLIGHT; TEAR DROP CELLS SLIGHT
--- NOTE | 2017-07-12 09:35 | RADIOLOGY REPORT (SQ) ---
EXAM DESCRIPTION: CHEST PA/LAT COMPLETED DATE/TIME: 07/11/2017 6:58 pm REASON FOR STUDY: COPD with pleural effusion COMPARISON: CT chest 10/21/2013, 07/30/2016, 06/10/2017, 06/12/2017 Two-view chest 06/12/2017 EXAM PARAMETERS: NUMBER OF VIEWS: two views TECHNIQUE: Digital Frontal and Lateral radiographic views of the chest acquired. RADIATION DOSE: NA LIMITATIONS: none FINDINGS: LUNGS AND PLEURA: Moderate size left pleural effusion is present, similar compared to 2016, increased compared to 06/10/2017. There is left lower lobe collapse and consolidation, atelectasis versus pneumonia. Trace right pleural fluid is present similar compared to previous studies. Right lung free of focal infiltrates. No right or left pneumothorax. MEDIASTINUM AND HILAR STRUCTURES: No masses or contour abnormalities. HEART AND VASCULAR STRUCTURES: Mild cardiomegaly BONES: No acute findings. HARDWARE: Surgical clips right breast OTHER: No other significant finding. IMPRESSION: Moderate left pleural effusion with left basilar airspace disease atelectasis versus pne umonia. TECHNICAL DOCUMENTATION: JOB ID: [id number] [employer]- All Rights Reserved
[2017-07-12] MEDS: TIOTROPIUM BROMIDE DPI 5 CAP/KIT (18 MCG/CAP) IH SCH (10:14)
[2017-07-12] MEDS: METOPROLOL SUCCINATE 25 MG TAB.SR.24H PO SCH (10:15)
[2017-07-12] MEDS: CALCIUM CARBONATE 250 MG/VITAMIN D3 125 UNIT TABLET PO SCH (10:15)
[2017-07-12] MEDS: GUAIFENESIN 600 MG TABLET.SA PO SCH ×2 (10:16→21:42)
[2017-07-12] MEDS: DILTIAZEM HCL 120 MG CAP.SR.24H PO SCH (10:16)
[2017-07-12] MEDS: ACETAZOLAMIDE 500 MG CAPSULE.SA PO SCH (10:16)
[2017-07-12] MEDS: VALSARTAN 40 MG TABLET PO SCH (10:16)
[2017-07-12] MEDS: CITALOPRAM HYDROBROMIDE 20 MG TABLET PO SCH (10:16)
[2017-07-12] MEDS: NICOTINE 7 MG/24 HR PATCH.TD24 TD SCH (10:16)
[2017-07-12] MEDS: ACETAMINOPHEN 325 MG TABLET PO PRN ×2 (10:23→21:45)
--- NOTE | 2017-07-12 17:42 | PDOC PROGRESS REPORT ---
Subjective Progress Note for:: 07/12/17 Subjective:: No chest pain but remain on supplemental oxygen and BiPAP support for respiratory failure management. Her chest X ray revealed moderate left pleural effusion with atelectasis. No fever or chills. No abdominal pain, nausea or vomiting. Physical Exam Vital Signs: Temp Pulse Resp BP Pulse Ox 98.7 F 80 22 H 165/91 H 96 07/12/17 12:18 07/12/17 15:53 07/12/17 15:53 07/12/17 12:18 07/12/17 15:53 Intake & Output 07/11/17 07/12/17 07/13/17 06:59 06:59 06:59 Intake Total 2122 1224 600 Output Total 1900 1850 400 Balance 222 -626 200 Physical Exam: General appearance: PRESENT: no acute distress, mild distress - remain on supplemental oxygen. Head exam: PRESENT: atraumatic, normocephalic Eye exam: PRESENT: conjunctiva pink, EOMI, PERRLA. ABSENT: scleral icterus Mouth exam: PRESENT: moist Teeth exam: PRESENT: poor dentition Respiratory exam: PRESENT: decreased breath sounds bilateral lower lung bases, prolonged expiratory phase, rhonchi - minimal expiratory phase Cardiovascular exam: PRESENT: irregular rhythm, +S1, +S2. ABSENT: diastolic murmur, rubs, systolic murmur Vascular exam: PRESENT: normal capillary refill. ABSENT: pallor GI/Abdominal exam: PRESENT: normal bowel sounds, soft. ABSENT: distended, guarding, mass, organomegaly, rebound, tenderness Extremities exam: ABSENT: pedal edema Musculoskeletal exam: PRESENT: deformity - related to joint involvement with arthritis Neurological exam: PRESENT: alert, awake, oriented to person, oriented to place , oriented to time, oriented to situation, CN II-XII grossly intact. ABSENT: motor sensory deficit Psychiatric exam: PRESENT: appropriate affect, normal mood. ABSENT: homicidal ideation, suicidal ideation Skin exam: PRESENT: dry, intact, warm. ABSENT: cyanosis, rash Results Laboratory Results: 07/12/17 06:05 07/12/17 06:05 07/12/17 07/12/17 06:05 06:05 WBC 13.0 H RBC 3.79 Hgb 11.2 L Hct 35.0 L MCV 92 MCH 29.4 MCHC 31.9 L RDW 18.7 H Plt Count 204 Seg Neutrophils % Not Reportable Lymphocytes % Not Reportable Monocytes % Not Reportable Eosinophils % Not Reportable Basophils % Not Reportable Absolute Neutrophils Not Reportable Absolute Lymphocytes Not Reportable Absolute Monocytes Not Reportable Absolute Eosinophils Not Reportable Absolute Basophils Not Reportable Sodium 138.9 Potassium 3.2 L Chloride 102 Carbon Dioxide 25 Anion Gap 12 BUN 23 H Creatinine 0.69 Est GFR ( Amer) > 60 Est GFR (Non-Af Amer) > 60 Glucose 150 H Calcium 9.8 Total Bilirubin 0.8 AST 23 ALT 32 Alkaline Phosphatase 103 Total Protein 6.6 Albumin 3.7 Impressions: Chest X-Ray 07/11/17 00:00 IMPRESSION: Moderate left pleural effusion with left basilar airspace disease atelectasis versus pneumonia. Assessment & Plan - Diagnosis (1) Acute and chronic respiratory failure ([id number]) Qualifiers: Respiratory failure complication: hypoxia and hypercapnia Qualified Code(s) : J96.21 - Acute and chronic respiratory failure with hypoxia; J96.22 - Acute and chronic respiratory failure with hypercapnia; J96.22 - Acute and chronic respiratory failure with hypercapnia; J96.22 - Acute and chronic respiratory failure with hypercapnia Is this a current diagnosis for this admission?: Yes (2) CO2 narcosis Is this a current diagnosis for this admission?: Yes (3) COPD (chronic obstructive pulmonary disease) Qualifiers: COPD type: COPD with acute exacerbation Qualified Code(s): J44.1 - Chronic obstructive pulmonary disease with (acute) exacerbation Is this a current diagnosis for this admission?: Yes (4) Acute renal injury due to hypovolemia Is this a current diagnosis for this admission?: Yes (5) Hyponatremia with extracellular fluid depletion Is this a current diagnosis for this admission?: Yes (6) Congestive heart failure (CHF) Qualifiers: Congestive heart failure type: diastolic Congestive heart failure chronicity: chronic Qualified Code(s): I50.32 - Chronic diastolic (congestive ) heart failure Is this a current diagnosis for this admission?: Yes (7) Chronic atrial fibrillation Is this a current diagnosis for this admission?: Yes (8) Pleural effusion Is this a current diagnosis for this admission?: Yes Plan: Patient will be schedule for left thoracentesis when her INR is down to 1.5 or below to avoid bleeding complication. (9) Hypokalemia due to inadequate potassium intake Is this a current diagnosis for this admission?: Yes Plan: See attending physician orders. - Time Time Spent with patient: 25-34 minutes Medications reviewed and adjusted accordingly: Yes Anticipated discharge: SNF Within: Other - Inpatient Certification Based on my medical assessment, after consideration of the patient's comorbidities, presenting symptoms, or acuity I expect that the services needed warrant INPATIENT care.: Yes I certify that my determination is in accordance with my understanding of Medicare's requirements for reasonable and necessary INPATIENT services [42 CFR 412.3e].: Yes Medical Necessity: Need Close Monitoring Due to Risk of Patient Decompensation, Need For IV Fluids, Need For Continuous Telemetry Monitoring, Need for Nebulizer Therapy and Monitoring of Response, Need for IV Antibiotics, Risk of Complication if Not Cared For in Hospital Post Hospital Care: D/C or Transfer Summary - Plan Summary Plan Summary: See attending physician orders.
[2017-07-12] MEDS: POTASSIUM CHLORIDE 10 MEQ TABLET.SA PO SCH ×2 (18:35→21:43)
[2017-07-12] MEDS: ATORVASTATIN CALCIUM 40 MG TABLET PO SCH (21:41)
[2017-07-12] MEDS: METHYLPREDNISOLONE INJ 40 MG/1 ML SDV IV SCH (21:43)
[2017-07-12] MEDS: LATANOPROST 0.005% OPH SOLN 2.5 ML OU SCH (21:43)
[2017-07-13] MEDS: IPRATROPIUM/ALBUTEROL 0.5-2.5 MG/3 ML AMPUL NEB SCH ×6 (00:10→20:24)
[2017-07-13 05:21] LABS: PROTHROMBIN TIME 18.4 SEC (11.4-15.4)
[2017-07-13 05:41] LABS: ANION GAP 10 (5-19); BLOOD UREA NITROGEN 27 mg/dL (7-20); CALCIUM 10.1 mg/dL (8.4-10.2); CARBON DIOXIDE 23 mmol/L (22-30); CHLORIDE 107 mmol/L (98-107); CREATININE RESULT 0.73 mg/dL (0.52-1.25); GLUCOSE 141 mg/dL (75-110); SODIUM 139.8 mmol/L (137-145)
[2017-07-13 05:52] LABS: POTASSIUM 4.2 mmol/L (3.6-5.0)
[2017-07-13] MEDS: LANSOPRAZOLE 30 MG TAB.RAP.DR PO SCH (06:17)
[2017-07-13] MEDS: METHYLPREDNISOLONE INJ 40 MG/1 ML SDV IV SCH ×3 (06:17→21:58)
[2017-07-13] MEDS: CALCIUM CARBONATE 250 MG/VITAMIN D3 125 UNIT TABLET PO SCH (08:31)
[2017-07-13] MEDS: DILTIAZEM HCL 120 MG CAP.SR.24H PO SCH (08:31)
[2017-07-13] MEDS: VALSARTAN 40 MG TABLET PO SCH (08:31)
[2017-07-13] MEDS: GUAIFENESIN 600 MG TABLET.SA PO SCH ×2 (08:31→21:57)
[2017-07-13] MEDS: NICOTINE 7 MG/24 HR PATCH.TD24 TD SCH (08:32)
[2017-07-13] MEDS: CITALOPRAM HYDROBROMIDE 20 MG TABLET PO SCH (08:32)
[2017-07-13] MEDS: METOPROLOL SUCCINATE 25 MG TAB.SR.24H PO SCH (08:32)
[2017-07-13] MEDS: ACETAZOLAMIDE 500 MG CAPSULE.SA PO SCH (08:33)
[2017-07-13] MEDS: TIOTROPIUM BROMIDE DPI 5 CAP/KIT (18 MCG/CAP) IH SCH (08:33)
[2017-07-13] MEDS: ACETAMINOPHEN 325 MG TABLET PO PRN ×2 (08:38→18:30)
--- NOTE | 2017-07-13 12:38 | RADIOLOGY REPORT (SQ) ---
EXAM DESCRIPTION: U/S THORACENTESIS WITH IMAGING COMPLETED DATE/TIME: 07/13/2017 12:08 pm REASON FOR STUDY: Left moderate pleural effusion COMPARISON: Chest film 07/11/2017 CT chest 06/10/2017 LIMITATIONS: None. PROCEDURE: Procedure, risks, benefit, and alternative explained to patient who then gave written con sent. The posterior left chest wall was marked using ultrasound guidance. A time-out was called for correct marking verification. Chest prepped and draped using sterile technique. Local anesthesia ac hieved using 4.5 ml of 1% lidocaine injection. A 5fr needle/catheter set was introduced into the pos terior left pleural space. Fluid was aspirated. The catheter was removed and the entry site was cov ered with sterile bandage. No immediate complications noted. Fluid was sent for testing including cytology. Images acquired during the procedure were stored on PACS. FINDINGS: ENTRY SITE: Posterior left chest FLUID VOLUME: 700 mL FLUID ANALYSIS: Yes, sent for testing OTHER: Post procedure chest x-ray dictated separately demonstrates no pneumothorax IMPRESSION: SUCCESSFUL LEFT THORACENTESIS USING ULTRASOUND GUIDANCE. COMMENT: Patient medication list reviewed: Yes- Quality ID# [id number]:Eligible professional attests to doc umenting in the medical record they obtained, updated, or reviewed the patient's current medications. Quality ID #[id number]: Final reports for procedures using fluoroscopy that document radiation exposure mendoza daniel, or exposure time and number of fluorographic images (if radiation exposure indices are not avail able) TECHNICAL DOCUMENTATION: JOB ID: [id number] [employer]- All Rights Reserved
--- NOTE | 2017-07-13 12:52 | RADIOLOGY REPORT (SQ) ---
EXAM DESCRIPTION: CHEST SINGLE VIEW COMPLETED DATE/TIME: 07/13/2017 12:21 pm REASON FOR STUDY: S/P LT THORACENTESIS COMPARISON: CT angio chest 06/10/2017 Chest films 06/12/2017, 07/08/2017, 07/11/2017 EXAM PARAMETERS: NUMBER OF VIEWS: One view. TECHNIQUE: Single frontal radiographic view of the chest acquired. RADIATION DOSE: NA LIMITATIONS: None. FINDINGS: LUNGS AND PLEURA: Patient is post left thoracentesis with removal of 700 mL of fluid. No left-sided pneumothorax. There is trace residual pleural fluid in the right and left lateral costophrenic sulci. No focal airspace disease worrisome for pneumonia. MEDIASTINUM AND HILAR STRUCTURES: No masses. Contour normal. HEART AND VASCULAR STRUCTURES: Marked cardiomegaly BONES: Osteoporotic HARDWARE: Surgical clips medial right breast OTHER: No other significant finding. IMPRESSION: No pneumothorax post left thoracentesis. TECHNICAL DOCUMENTATION: JOB ID: [id number]
[2017-07-13 13:09] LABS: FLUID APPEARANCE CLOUDY; FLUID RBC AVERAGE 236.5; FLUID RBC SIDE 1 231; FLUID RBC SIDE 2 242; FLUID TYPE PLEURAL
[2017-07-13 13:10] LABS: FLUID RBC DILUENT USED SALINE; FLUID RBC DILUTION FACTOR 21; TOTAL RBC SQUARES COUNTED FLD 25
--- NOTE | 2017-07-13 14:35 | RADIOLOGY REPORT (SQ) ---
EXAM DESCRIPTION: CHEST SINGLE VIEW COMPLETED DATE/TIME: 07/13/2017 2:25 pm REASON FOR STUDY: 2 HOURS S/P LT THORACENTESIS COMPARISON: 07/13/2017 EXAM PARAMETERS: NUMBER OF VIEWS: One view. TECHNIQUE: Single frontal radiographic view of the chest acquired. RADIATION DOSE: NA LIMITATIONS: None. FINDINGS: LUNGS AND PLEURA: There is no pneumothorax. Minimal fluid is seen in each side of the [address]. There is pulmonary vascular congestion. MEDIASTINUM AND HILAR STRUCTURES: No masses. Contour normal. HEART AND VASCULAR STRUCTURES: Cardiomegaly without failure. BONES: No acute findings. HARDWARE: None in the chest. OTHER: No other significant finding. IMPRESSION: No pneumothorax. Cardiomegaly without CHF. Minimal pleural effusions. TECHNICAL DOCUMENTATION: JOB ID: [id number]
--- NOTE | 2017-07-13 16:32 | PDOC PROGRESS REPORT ---
Subjective Progress Note for:: 07/13/17 Subjective:: Patient is post left thoracentesis procedure. Reported improved breathing effort. Remain on supplemental oxygen and BiPAP support for respiratory failure management. No chest pain. No fever or chills. No abdominal pain, nausea or vomiting. Patient reported poor appetite. Physical Exam Vital Signs: Temp Pulse Resp BP Pulse Ox 97.9 F 83 16 159/65 H 98 07/13/17 12:41 07/13/17 16:09 07/13/17 16:09 07/13/17 15:01 07/13/17 16:09 Intake & Output 07/12/17 07/13/17 07/14/17 06:59 06:59 06:59 Intake Total 1224 1502 0 Output Total 1850 1100 Balance -626 402 0 Weight 40.2 kg Physical Exam: General appearance: PRESENT: no acute distress, mild distress - remain on supplemental oxygen. Head exam: PRESENT: atraumatic, normocephalic Eye exam: PRESENT: conjunctiva pink, EOMI, PERRLA. ABSENT: scleral icterus Mouth exam: PRESENT: moist Teeth exam: PRESENT: poor dentition Respiratory exam: PRESENT: decreased breath sounds bilateral lower lung bases, prolonged expiratory phase, rhonchi - minimal expiratory phase Cardiovascular exam: PRESENT: irregular rhythm, +S1, +S2. ABSENT: diastolic murmur, rubs, systolic murmur Vascular exam: PRESENT: normal capillary refill. ABSENT: pallor GI/Abdominal exam: PRESENT: normal bowel sounds, soft. ABSENT: distended, guarding, mass, organomegaly, rebound, tenderness Extremities exam: ABSENT: pedal edema Musculoskeletal exam: PRESENT: deformity - related to joint involvement with arthritis Neurological exam: PRESENT: alert, awake, oriented to person, oriented to place , oriented to time, oriented to situation, CN II-XII grossly intact. ABSENT: motor sensory deficit Psychiatric exam: PRESENT: appropriate affect, normal mood. ABSENT: homicidal ideation, suicidal ideation Skin exam: PRESENT: dry, intact, warm. Dressing over posterior chest wall thoracentesis site satisfactory. ABSENT: cyanosis, rash Results Laboratory Results: 07/12/17 06:05 07/13/17 04:57 07/12/17 07/13/17 07/13/17 06:05 04:57 11:55 Sodium 139.8 Potassium 4.2 D Chloride 107 Carbon Dioxide 23 Anion Gap 10 BUN 27 H Creatinine 0.73 Est GFR ( Amer) > 60 Est GFR (Non-Af Amer) > 60 Glucose 141 H Calcium 10.1 Magnesium 1.6 Fluid Type PLEURAL Fluid Source Fluid Color RED Fluid Appearance CLOUDY Fluid Viscosity LIQUID Fluid WBC 207 Fluid RBC 98700 Impressions: Thoracentesis Ultrasound 07/13/17 08:00 IMPRESSION: SUCCESSFUL LEFT THORACENTESIS USING ULTRASOUND GUIDANCE. Chest X-Ray 07/13/17 12:05 IMPRESSION: No pneumothorax post left thoracentesis. Assessment & Plan - Diagnosis (1) Acute and chronic respiratory failure ([id number]) Qualifiers: Respiratory failure complication: hypoxia and hypercapnia Qualified Code(s) : J96.21 - Acute and chronic respiratory failure with hypoxia; J96.22 - Acute and chronic respiratory failure with hypercapnia; J96.22 - Acute and chronic respiratory failure with hypercapnia; J96.22 - Acute and chronic respiratory failure with hypercapnia Is this a current diagnosis for this admission?: Yes (2) CO2 narcosis Is this a current diagnosis for this admission?: Yes (3) COPD (chronic obstructive pulmonary disease) Qualifiers: COPD type: COPD with acute exacerbation Qualified Code(s): J44.1 - Chronic obstructive pulmonary disease with (acute) exacerbation Is this a current diagnosis for this admission?: Yes (4) Acute renal injury due to hypovolemia Is this a current diagnosis for this admission?: Yes (5) Hyponatremia with extracellular fluid depletion Is this a current diagnosis for this admission?: Yes (6) Congestive heart failure (CHF) Qualifiers: Congestive heart failure type: diastolic Congestive heart failure chronicity: chronic Qualified Code(s): I50.32 - Chronic diastolic (congestive ) heart failure Is this a current diagnosis for this admission?: Yes (7) Chronic atrial fibrillation Is this a current diagnosis for this admission?: Yes (8) Pleural effusion Is this a current diagnosis for this admission?: Yes (9) Hypokalemia due to inadequate potassium intake Is this a current diagnosis for this admission?: Yes - Time Time Spent with patient: 25-34 minutes Medications reviewed and adjusted accordingly: Yes Anticipated discharge: SNF - for short term rehabilitation. Within: Other - Inpatient Certification Based on my medical assessment, after consideration of the patient's comorbidities, presenting symptoms, or acuity I expect that the services needed warrant INPATIENT care.: Yes I certify that my determination is in accordance with my understanding of Medicare's requirements for reasonable and necessary INPATIENT services [42 CFR 412.3e].: Yes Medical Necessity: Need Close Monitoring Due to Risk of Patient Decompensation, Need For Continuous Telemetry Monitoring, Need for Nebulizer Therapy and Monitoring of Response, Need for IV Antibiotics, Risk of Complication if Not Cared For in Hospital Post Hospital Care: D/C or Transfer Summary - Plan Summary Plan Summary: Decrease Methylprednisone to 40 mg [id number]. Continue other current medication management. Start on Zbec vitamin 1 tablet p.o daily for reported poor appetite.
[2017-07-13] MEDS: MULTIVIT-STRESS FORMULA/ZINC TABLET PO SCH (18:30)
[2017-07-13] MEDS: ATORVASTATIN CALCIUM 40 MG TABLET PO SCH (21:57)
[2017-07-13] MEDS: LATANOPROST 0.005% OPH SOLN 2.5 ML OU SCH (22:07)
[2017-07-14] MEDS: IPRATROPIUM/ALBUTEROL 0.5-2.5 MG/3 ML AMPUL NEB SCH ×6 (00:15→19:54)
[2017-07-14] MEDS: ACETAMINOPHEN 325 MG TABLET PO PRN ×3 (02:45→19:46)
[2017-07-14] MEDS: METHYLPREDNISOLONE INJ 40 MG/1 ML SDV IV SCH ×3 (05:59→22:30)
[2017-07-14] MEDS: LANSOPRAZOLE 30 MG TAB.RAP.DR PO SCH (05:59)
[2017-07-14] MEDS: CITALOPRAM HYDROBROMIDE 20 MG TABLET PO SCH (10:08)
[2017-07-14] MEDS: METOPROLOL SUCCINATE 25 MG TAB.SR.24H PO SCH (10:08)
[2017-07-14] MEDS: ACETAZOLAMIDE 500 MG CAPSULE.SA PO SCH (10:09)
[2017-07-14] MEDS: VALSARTAN 40 MG TABLET PO SCH (10:09)
[2017-07-14] MEDS: GUAIFENESIN 600 MG TABLET.SA PO SCH ×2 (10:09→22:29)
[2017-07-14] MEDS: CALCIUM CARBONATE 250 MG/VITAMIN D3 125 UNIT TABLET PO SCH (10:09)
[2017-07-14] MEDS: DILTIAZEM HCL 120 MG CAP.SR.24H PO SCH (10:09)
[2017-07-14] MEDS: NICOTINE 7 MG/24 HR PATCH.TD24 TD SCH (10:10)
[2017-07-14] MEDS: TIOTROPIUM BROMIDE DPI 5 CAP/KIT (18 MCG/CAP) IH SCH (10:10)
[2017-07-14] MEDS: MULTIVIT-STRESS FORMULA/ZINC TABLET PO SCH (17:39)
--- NOTE | 2017-07-14 19:09 | PDOC PROGRESS REPORT ---
Subjective Progress Note for:: 07/14/17 Subjective:: Breathing remain fair. She remain on supplemental oxygen via nasal cannula and BiPAP support. No chest pain. No fever or chills. No abdominal pain, nausea or vomiting. Patient reported poor appetite. Reported multiple joints aches and pain with request for stronger pain medication. Physical Exam Vital Signs: Temp Pulse Resp BP Pulse Ox 99.0 F 83 18 162/69 H 98 07/14/17 16:16 07/14/17 16:16 07/14/17 16:16 07/14/17 16:16 07/14/17 16:16 Intake & Output 07/13/17 07/14/17 07/15/17 06:59 06:59 06:59 Intake Total 1502 447 684 Output Total 1100 Balance 402 447 684 Weight 40.2 kg 39.2 kg Physical Exam: General appearance: PRESENT: no acute distress, mild distress - remain on supplemental oxygen. Head exam: PRESENT: atraumatic, normocephalic Eye exam: PRESENT: conjunctiva pink, EOMI, PERRLA. ABSENT: scleral icterus Mouth exam: PRESENT: moist Teeth exam: PRESENT: poor dentition Respiratory exam: PRESENT: decreased breath sounds bilateral lower lung bases, prolonged expiratory phase, rhonchi - minimal expiratory phase Cardiovascular exam: PRESENT: irregular rhythm, +S1, +S2. ABSENT: diastolic murmur, rubs, systolic murmur Vascular exam: PRESENT: normal capillary refill. ABSENT: pallor GI/Abdominal exam: PRESENT: normal bowel sounds, soft. ABSENT: distended, guarding, mass, organomegaly, rebound, tenderness Extremities exam: ABSENT: pedal edema Musculoskeletal exam: PRESENT: deformity - related to joint involvement with arthritis Neurological exam: PRESENT: alert, awake, oriented to person, oriented to place , oriented to time, oriented to situation, CN II-XII grossly intact. ABSENT: motor sensory deficit Psychiatric exam: PRESENT: appropriate affect, normal mood. ABSENT: homicidal ideation, suicidal ideation Skin exam: PRESENT: dry, intact, warm. ABSENT: cyanosis, rash Results Laboratory Results: 07/12/17 06:05 07/13/17 04:57 07/13/17 07/13/17 11:55 11:55 Fluid Glucose 146 Fluid Total Protein 1.9 Impressions: Thoracentesis Ultrasound 07/13/17 08:00 IMPRESSION: SUCCESSFUL LEFT THORACENTESIS USING ULTRASOUND GUIDANCE. Chest X-Ray 07/13/17 12:05 IMPRESSION: No pneumothorax post left thoracentesis. Assessment & Plan - Diagnosis (1) Acute and chronic respiratory failure ([id number]) Qualifiers: Respiratory failure complication: hypoxia and hypercapnia Qualified Code(s) : J96.21 - Acute and chronic respiratory failure with hypoxia; J96.22 - Acute and chronic respiratory failure with hypercapnia; J96.22 - Acute and chronic respiratory failure with hypercapnia; J96.22 - Acute and chronic respiratory failure with hypercapnia Is this a current diagnosis for this admission?: Yes (2) CO2 narcosis Is this a current diagnosis for this admission?: Yes (3) COPD (chronic obstructive pulmonary disease) Qualifiers: COPD type: COPD with acute exacerbation Qualified Code(s): J44.1 - Chronic obstructive pulmonary disease with (acute) exacerbation Is this a current diagnosis for this admission?: Yes (4) Acute renal injury due to hypovolemia Is this a current diagnosis for this admission?: Yes (5) Hyponatremia with extracellular fluid depletion Is this a current diagnosis for this admission?: Yes (6) Congestive heart failure (CHF) Qualifiers: Congestive heart failure type: diastolic Congestive heart failure chronicity: chronic Qualified Code(s): I50.32 - Chronic diastolic (congestive ) heart failure Is this a current diagnosis for this admission?: Yes (7) Chronic atrial fibrillation Is this a current diagnosis for this admission?: Yes (8) Pleural effusion Is this a current diagnosis for this admission?: Yes (9) Hypokalemia due to inadequate potassium intake Is this a current diagnosis for this admission?: Yes - Time Time Spent with patient: 25-34 minutes Medications reviewed and adjusted accordingly: Yes Anticipated discharge: SNF - for short term rehabilitation Within: Other - Inpatient Certification Based on my medical assessment, after consideration of the patient's comorbidities, presenting symptoms, or acuity I expect that the services needed warrant INPATIENT care.: Yes I certify that my determination is in accordance with my understanding of Medicare's requirements for reasonable and necessary INPATIENT services [42 CFR 412.3e].: Yes Medical Necessity: Need Close Monitoring Due to Risk of Patient Decompensation, Need For Continuous Telemetry Monitoring, Risk of Complication if Not Cared For in Hospital Post Hospital Care: D/C or Transfer Summary - Plan Summary Plan Summary: Continue current mediation management. Further taper down solu medrol dosage and increase Tylenol to 650 mg po q6 hrs prn for pain management.
[2017-07-14] MEDS: ATORVASTATIN CALCIUM 40 MG TABLET PO SCH (22:29)
[2017-07-14] MEDS: LATANOPROST 0.005% OPH SOLN 2.5 ML OU SCH (22:33)
[2017-07-15] MEDS: IPRATROPIUM/ALBUTEROL 0.5-2.5 MG/3 ML AMPUL NEB SCH ×6 (00:06→20:03)
[2017-07-15] MEDS: ACETAMINOPHEN 325 MG TABLET PO PRN ×3 (03:50→23:00)
[2017-07-15] MEDS: METHYLPREDNISOLONE INJ 40 MG/1 ML SDV IV SCH ×2 (05:44→16:00)
[2017-07-15] MEDS: LANSOPRAZOLE 30 MG TAB.RAP.DR PO SCH (05:44)
[2017-07-15] MEDS: VALSARTAN 40 MG TABLET PO SCH (09:09)
[2017-07-15] MEDS: METOPROLOL SUCCINATE 25 MG TAB.SR.24H PO SCH (09:09)
[2017-07-15] MEDS: DILTIAZEM HCL 120 MG CAP.SR.24H PO SCH (09:09)
[2017-07-15] MEDS: GUAIFENESIN 600 MG TABLET.SA PO SCH ×2 (09:09→21:42)
[2017-07-15] MEDS: NICOTINE 7 MG/24 HR PATCH.TD24 TD SCH (09:10)
[2017-07-15] MEDS: CALCIUM CARBONATE 250 MG/VITAMIN D3 125 UNIT TABLET PO SCH (09:10)
[2017-07-15] MEDS: CITALOPRAM HYDROBROMIDE 20 MG TABLET PO SCH (09:10)
[2017-07-15] MEDS: ACETAZOLAMIDE 500 MG CAPSULE.SA PO SCH (09:11)
[2017-07-15] MEDS: TIOTROPIUM BROMIDE DPI 5 CAP/KIT (18 MCG/CAP) IH SCH (09:12)
[2017-07-15] MEDS: MULTIVIT-STRESS FORMULA/ZINC TABLET PO SCH (18:30)
[2017-07-15] MEDS ORDERED: PREDNISONE 20 MG TABLET PO ONE (19:22)
--- NOTE | 2017-07-15 19:35 | PDOC PROGRESS REPORT ---
Subjective Progress Note for:: 07/15/17 Subjective:: No chest pain. Patient did participate in walking on the floor earlier today with resultant desaturation in her oxygen. She remain on supplemental oxygen via nasal cannula and BiPAP support. No fever or chills. No abdominal pain, nausea or vomiting. Physical Exam Vital Signs: Temp Pulse Resp BP Pulse Ox 98.9 F 109 H 18 117/70 99 07/15/17 16:27 07/15/17 16:27 07/15/17 16:27 07/15/17 16:27 07/15/17 16:27 Intake & Output 07/14/17 07/15/17 07/16/17 06:59 06:59 06:59 Intake Total 447 894 10 Balance 447 894 10 Weight 38 kg Physical Exam: General appearance: PRESENT: no acute distress, mild distress - remain on supplemental oxygen. Head exam: PRESENT: atraumatic, normocephalic Eye exam: PRESENT: conjunctiva pink, EOMI, PERRLA. ABSENT: scleral icterus Mouth exam: PRESENT: moist Teeth exam: PRESENT: poor dentition Respiratory exam: PRESENT: decreased breath sounds bilateral lower lung bases, no significant wheezing or rhonchi. Cardiovascular exam: PRESENT: irregular rhythm, +S1, +S2. ABSENT: diastolic murmur, rubs, systolic murmur Vascular exam: PRESENT: normal capillary refill. ABSENT: pallor GI/Abdominal exam: PRESENT: normal bowel sounds, soft. ABSENT: distended, guarding, mass, organomegaly, rebound, tenderness Extremities exam: ABSENT: pedal edema Musculoskeletal exam: PRESENT: deformity - related to joint involvement with arthritis Neurological exam: PRESENT: alert, awake, oriented to person, oriented to place , oriented to time, oriented to situation, CN II-XII grossly intact. ABSENT: motor sensory deficit Psychiatric exam: PRESENT: appropriate affect, normal mood. ABSENT: homicidal ideation, suicidal ideation Skin exam: PRESENT: dry, intact, warm. ABSENT: cyanosis, rash Results Laboratory Results: 07/12/17 06:05 07/13/17 04:57 Impressions: Thoracentesis Ultrasound 07/13/17 08:00 IMPRESSION: SUCCESSFUL LEFT THORACENTESIS USING ULTRASOUND GUIDANCE. Chest X-Ray 07/13/17 12:05 IMPRESSION: No pneumothorax post left thoracentesis. Assessment & Plan - Diagnosis (1) Acute and chronic respiratory failure ([id number]) Qualifiers: Respiratory failure complication: hypoxia and hypercapnia Qualified Code(s) : J96.21 - Acute and chronic respiratory failure with hypoxia; J96.22 - Acute and chronic respiratory failure with hypercapnia; J96.22 - Acute and chronic respiratory failure with hypercapnia; J96.22 - Acute and chronic respiratory failure with hypercapnia Is this a current diagnosis for this admission?: Yes (2) CO2 narcosis Is this a current diagnosis for this admission?: Yes (3) COPD (chronic obstructive pulmonary disease) Qualifiers: COPD type: COPD with acute exacerbation Qualified Code(s): J44.1 - Chronic obstructive pulmonary disease with (acute) exacerbation Is this a current diagnosis for this admission?: Yes (4) Acute renal injury due to hypovolemia Is this a current diagnosis for this admission?: Yes (5) Hyponatremia with extracellular fluid depletion Is this a current diagnosis for this admission?: Yes (6) Congestive heart failure (CHF) Qualifiers: Congestive heart failure type: diastolic Congestive heart failure chronicity: chronic Qualified Code(s): I50.32 - Chronic diastolic (congestive ) heart failure Is this a current diagnosis for this admission?: Yes (7) Chronic atrial fibrillation Is this a current diagnosis for this admission?: Yes (8) Pleural effusion Is this a current diagnosis for this admission?: Yes (9) Hypokalemia due to inadequate potassium intake Is this a current diagnosis for this admission?: Yes - Time Time Spent with patient: 25-34 minutes Medications reviewed and adjusted accordingly: Yes Anticipated discharge: SNF Within: Other - Inpatient Certification Based on my medical assessment, after consideration of the patient's comorbidities, presenting symptoms, or acuity I expect that the services needed warrant INPATIENT care.: Yes I certify that my determination is in accordance with my understanding of Medicare's requirements for reasonable and necessary INPATIENT services [42 CFR 412.3e].: Yes Medical Necessity: Need Close Monitoring Due to Risk of Patient Decompensation, Need For Continuous Telemetry Monitoring, Need for Nebulizer Therapy and Monitoring of Response, Risk of Complication if Not Cared For in Hospital Post Hospital Care: D/C or Transfer Summary - Plan Summary Plan Summary: See attending physician orders. 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
[2017-07-15 20:07] LABS: PROTHROMBIN TIME 14.2 SEC (11.4-15.4)
[2017-07-15] MEDS: LATANOPROST 0.005% OPH SOLN 2.5 ML OU SCH (21:41)
[2017-07-15] MEDS: ATORVASTATIN CALCIUM 40 MG TABLET PO SCH (21:42)
[2017-07-16] MEDS: IPRATROPIUM/ALBUTEROL 0.5-2.5 MG/3 ML AMPUL NEB SCH ×7 (00:12→23:59)
[2017-07-16] MEDS: LANSOPRAZOLE 30 MG TAB.RAP.DR PO SCH (05:59)
[2017-07-16] MEDS: ACETAMINOPHEN 325 MG TABLET PO PRN ×3 (06:00→22:25)
[2017-07-16] MEDS: NICOTINE 7 MG/24 HR PATCH.TD24 TD SCH (10:52)
[2017-07-16] MEDS: METOPROLOL SUCCINATE 25 MG TAB.SR.24H PO SCH (10:52)
[2017-07-16] MEDS: CALCIUM CARBONATE 250 MG/VITAMIN D3 125 UNIT TABLET PO SCH (10:52)
[2017-07-16] MEDS: ACETAZOLAMIDE 500 MG CAPSULE.SA PO SCH (10:53)
[2017-07-16] MEDS: DILTIAZEM HCL 120 MG CAP.SR.24H PO SCH (10:53)
[2017-07-16] MEDS: CITALOPRAM HYDROBROMIDE 20 MG TABLET PO SCH (10:53)
[2017-07-16] MEDS: VALSARTAN 40 MG TABLET PO SCH (10:53)
[2017-07-16] MEDS: PREDNISONE 20 MG TABLET PO SCH (10:53)
[2017-07-16] MEDS: GUAIFENESIN 600 MG TABLET.SA PO SCH ×2 (10:53→22:15)
[2017-07-16] MEDS: TIOTROPIUM BROMIDE DPI 5 CAP/KIT (18 MCG/CAP) IH SCH (10:53)
--- NOTE | 2017-07-16 15:18 | PDOC PROGRESS REPORT ---
Subjective Progress Note for:: 07/16/17 Subjective:: No chest pain. Patient demonstrated significant desaturation in pulse oximetry with ambulation to low 83%. No fever or chills. No abdominal pain, nausea or vomiting. Physical Exam Vital Signs: Temp Pulse Resp BP Pulse Ox 98.0 F 72 16 150/93 H 98 07/16/17 12:00 07/16/17 12:00 07/16/17 12:00 07/16/17 12:00 07/16/17 12:00 Intake & Output 07/15/17 07/16/17 07/17/17 06:59 06:59 06:59 Intake Total 894 2154 100 Balance 894 2154 100 Weight 38 kg 38.1 kg Physical Exam: General appearance: PRESENT: no acute distress, mild distress - remain on supplemental oxygen. Head exam: PRESENT: atraumatic, normocephalic Eye exam: PRESENT: conjunctiva pink, EOMI, PERRLA. ABSENT: scleral icterus Mouth exam: PRESENT: moist Teeth exam: PRESENT: poor dentition Respiratory exam: PRESENT: decreased breath sounds bilateral lower lung bases, no significant wheezing or rhonchi. Cardiovascular exam: PRESENT: irregular rhythm, +S1, +S2. ABSENT: diastolic murmur, rubs, systolic murmur Vascular exam: PRESENT: normal capillary refill. ABSENT: pallor GI/Abdominal exam: PRESENT: normal bowel sounds, soft. ABSENT: distended, guarding, mass, organomegaly, rebound, tenderness Extremities exam: ABSENT: pedal edema Musculoskeletal exam: PRESENT: deformity - related to joint involvement with arthritis Neurological exam: PRESENT: alert, awake, oriented to person, oriented to place , oriented to time, oriented to situation, CN II-XII grossly intact. ABSENT: motor sensory deficit Psychiatric exam: PRESENT: appropriate affect, normal mood. ABSENT: homicidal ideation, suicidal ideation Skin exam: PRESENT: dry, intact, warm. ABSENT: cyanosis, rash Results Laboratory Results: 07/12/17 06:05 07/13/17 04:57 Impressions: Thoracentesis Ultrasound 07/13/17 08:00 IMPRESSION: SUCCESSFUL LEFT THORACENTESIS USING ULTRASOUND GUIDANCE. Chest X-Ray 07/13/17 12:05 IMPRESSION: No pneumothorax post left thoracentesis. Assessment & Plan - Diagnosis (1) Acute and chronic respiratory failure ([id number]) Qualifiers: Respiratory failure complication: hypoxia and hypercapnia Qualified Code(s) : J96.21 - Acute and chronic respiratory failure with hypoxia; J96.22 - Acute and chronic respiratory failure with hypercapnia; J96.22 - Acute and chronic respiratory failure with hypercapnia; J96.22 - Acute and chronic respiratory failure with hypercapnia Is this a current diagnosis for this admission?: Yes (2) CO2 narcosis Is this a current diagnosis for this admission?: Yes (3) COPD (chronic obstructive pulmonary disease) Qualifiers: COPD type: COPD with acute exacerbation Qualified Code(s): J44.1 - Chronic obstructive pulmonary disease with (acute) exacerbation Is this a current diagnosis for this admission?: Yes (4) Acute renal injury due to hypovolemia Is this a current diagnosis for this admission?: Yes (5) Hyponatremia with extracellular fluid depletion Is this a current diagnosis for this admission?: Yes (6) Congestive heart failure (CHF) Qualifiers: Congestive heart failure type: diastolic Congestive heart failure chronicity: chronic Qualified Code(s): I50.32 - Chronic diastolic (congestive ) heart failure Is this a current diagnosis for this admission?: Yes (7) Chronic atrial fibrillation Is this a current diagnosis for this admission?: Yes (8) Pleural effusion Is this a current diagnosis for this admission?: Yes (9) Hypokalemia due to inadequate potassium intake Is this a current diagnosis for this admission?: Yes - Time Time Spent with patient: 25-34 minutes Medications reviewed and adjusted accordingly: Yes Anticipated discharge: SNF - for short term rehabilitation. Within: Other - Inpatient Certification Based on my medical assessment, after consideration of the patient's comorbidities, presenting symptoms, or acuity I expect that the services needed warrant INPATIENT care.: Yes I certify that my determination is in accordance with my understanding of Medicare's requirements for reasonable and necessary INPATIENT services [42 CFR 412.3e].: Yes Medical Necessity: Need Close Monitoring Due to Risk of Patient Decompensation, Need For Continuous Telemetry Monitoring, Risk of Complication if Not Cared For in Hospital Post Hospital Care: D/C [employer] Documentation - Plan Summary Plan Summary: Continue on current medication management. Awaiting response from local SNF regarding patient's placement effort. Followup on efforts to get portable oxygen concentrator.
[2017-07-16] MEDS: MULTIVIT-STRESS FORMULA/ZINC TABLET PO SCH (18:39)
[2017-07-16] MEDS: WARFARIN SODIUM 3 MG TABLET PO SCH (18:39)
[2017-07-16] MEDS ORDERED: WARFARIN SODIUM 3 MG TABLET PO SCH (22:00)
[2017-07-16] MEDS: LATANOPROST 0.005% OPH SOLN 2.5 ML OU SCH (22:16)
[2017-07-16] MEDS: ATORVASTATIN CALCIUM 40 MG TABLET PO SCH (22:16)
[2017-07-17] MEDS: IPRATROPIUM/ALBUTEROL 0.5-2.5 MG/3 ML AMPUL NEB SCH ×6 (04:04→23:25)
[2017-07-17] MEDS: ACETAMINOPHEN 325 MG TABLET PO PRN ×3 (06:33→22:39)
[2017-07-17] MEDS: LANSOPRAZOLE 30 MG TAB.RAP.DR PO SCH (06:33)
[2017-07-17] MEDS: VALSARTAN 40 MG TABLET PO SCH (09:22)
[2017-07-17] MEDS: NICOTINE 7 MG/24 HR PATCH.TD24 TD SCH (09:22)
[2017-07-17] MEDS: CALCIUM CARBONATE 250 MG/VITAMIN D3 125 UNIT TABLET PO SCH (09:22)
[2017-07-17] MEDS: CITALOPRAM HYDROBROMIDE 20 MG TABLET PO SCH (09:23)
[2017-07-17] MEDS: METOPROLOL SUCCINATE 25 MG TAB.SR.24H PO SCH (09:23)
[2017-07-17] MEDS: GUAIFENESIN 600 MG TABLET.SA PO SCH ×2 (09:23→22:39)
[2017-07-17] MEDS: PREDNISONE 20 MG TABLET PO SCH (09:23)
[2017-07-17] MEDS: DILTIAZEM HCL 120 MG CAP.SR.24H PO SCH (09:23)
[2017-07-17] MEDS: TIOTROPIUM BROMIDE DPI 5 CAP/KIT (18 MCG/CAP) IH SCH (09:26)
[2017-07-17] MEDS: ACETAZOLAMIDE 500 MG CAPSULE.SA PO SCH (09:26)
[2017-07-17] MEDS: MULTIVIT-STRESS FORMULA/ZINC TABLET PO SCH (18:17)
[2017-07-17] MEDS: WARFARIN SODIUM 3 MG TABLET PO SCH (18:17)
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
[2017-07-17] MEDS: ATORVASTATIN CALCIUM 40 MG TABLET PO SCH (22:38)
[2017-07-18] MEDS: LATANOPROST 0.005% OPH SOLN 2.5 ML OU SCH ×2 (00:16→00:53)
[2017-07-18] MEDS: IPRATROPIUM/ALBUTEROL 0.5-2.5 MG/3 ML AMPUL NEB SCH ×6 (04:12→23:38)
[2017-07-18] MEDS: CITALOPRAM HYDROBROMIDE 20 MG TABLET PO SCH (10:25)
[2017-07-18] MEDS: TIOTROPIUM BROMIDE DPI 5 CAP/KIT (18 MCG/CAP) IH SCH (10:25)
[2017-07-18] MEDS: CALCIUM CARBONATE 250 MG/VITAMIN D3 125 UNIT TABLET PO SCH (10:25)
[2017-07-18] MEDS: NICOTINE 7 MG/24 HR PATCH.TD24 TD SCH (10:25)
[2017-07-18] MEDS: VALSARTAN 40 MG TABLET PO SCH (10:26)
[2017-07-18] MEDS: ACETAZOLAMIDE 500 MG CAPSULE.SA PO SCH (10:26)
[2017-07-18] MEDS: LANSOPRAZOLE 30 MG TAB.RAP.DR PO SCH (10:26)
[2017-07-18] MEDS: DILTIAZEM HCL 120 MG CAP.SR.24H PO SCH (10:27)
[2017-07-18] MEDS: METOPROLOL SUCCINATE 25 MG TAB.SR.24H PO SCH (10:27)
[2017-07-18] MEDS: PREDNISONE 20 MG TABLET PO SCH (10:28)
[2017-07-18] MEDS: GUAIFENESIN 600 MG TABLET.SA PO SCH ×2 (10:28→22:00)
[2017-07-18] MEDS: ACETAMINOPHEN 325 MG TABLET PO PRN ×2 (10:40→22:32)
[2017-07-18] MEDS: WARFARIN SODIUM 3 MG TABLET PO SCH (17:22)
[2017-07-18] MEDS: MULTIVIT-STRESS FORMULA/ZINC TABLET PO SCH (17:22)
--- NOTE | 2017-07-18 18:45 | PDOC PROGRESS REPORT ---
Subjective Progress Note for:: 07/18/17 Subjective:: No chest pain. Breathing is stable. remain on supplemental oxygen via nasal cannula at 2L/min. No fever or chills. No abdominal pain, nausea or vomiting. Physical Exam Vital Signs: Temp Pulse Resp BP Pulse Ox 98.6 F 74 20 139/56 H 98 07/18/17 15:24 07/18/17 16:07 07/18/17 16:07 07/18/17 15:24 07/18/17 16:07 Intake & Output 07/17/17 07/18/17 07/19/17 06:59 06:59 06:59 Intake Total 707 537 390 Balance 707 537 390 Weight 38 kg 38 kg Physical Exam: General appearance: PRESENT: no acute distress, mild distress - remain on supplemental oxygen. Head exam: PRESENT: atraumatic, normocephalic Eye exam: PRESENT: conjunctiva pink, EOMI, PERRLA. ABSENT: scleral icterus Mouth exam: PRESENT: moist Teeth exam: PRESENT: poor dentition Respiratory exam: PRESENT: decreased breath sounds bilateral lower lung bases, no significant wheezing or rhonchi. Cardiovascular exam: PRESENT: irregular rhythm, +S1, +S2. ABSENT: diastolic murmur, rubs, systolic murmur Vascular exam: PRESENT: normal capillary refill. ABSENT: pallor GI/Abdominal exam: PRESENT: normal bowel sounds, soft. ABSENT: distended, guarding, mass, organomegaly, rebound, tenderness Extremities exam: ABSENT: pedal edema Musculoskeletal exam: PRESENT: deformity - related to joint involvement with arthritis Neurological exam: PRESENT: alert, awake, oriented to person, oriented to place , oriented to time, oriented to situation, CN II-XII grossly intact. ABSENT: motor sensory deficit Psychiatric exam: PRESENT: appropriate affect, normal mood. ABSENT: homicidal ideation, suicidal ideation Skin exam: PRESENT: dry, intact, warm. ABSENT: cyanosis, rash Results Laboratory Results: 07/12/17 06:05 07/13/17 04:57 Impressions: Thoracentesis Ultrasound 07/13/17 08:00 IMPRESSION: SUCCESSFUL LEFT THORACENTESIS USING ULTRASOUND GUIDANCE. Chest X-Ray 07/13/17 12:05 IMPRESSION: No pneumothorax post left thoracentesis. Assessment & Plan - Diagnosis (1) Acute and chronic respiratory failure ([id number]) Qualifiers: Respiratory failure complication: hypoxia and hypercapnia Qualified Code(s) : J96.21 - Acute and chronic respiratory failure with hypoxia; J96.22 - Acute and chronic respiratory failure with hypercapnia; J96.22 - Acute and chronic respiratory failure with hypercapnia; J96.22 - Acute and chronic respiratory failure with hypercapnia Is this a current diagnosis for this admission?: Yes (2) CO2 narcosis Is this a current diagnosis for this admission?: Yes (3) COPD (chronic obstructive pulmonary disease) Qualifiers: COPD type: COPD with acute exacerbation Qualified Code(s): J44.1 - Chronic obstructive pulmonary disease with (acute) exacerbation Is this a current diagnosis for this admission?: Yes (4) Acute renal injury due to hypovolemia Is this a current diagnosis for this admission?: Yes (5) Hyponatremia with extracellular fluid depletion Is this a current diagnosis for this admission?: Yes (6) Congestive heart failure (CHF) Qualifiers: Congestive heart failure type: diastolic Congestive heart failure chronicity: chronic Qualified Code(s): I50.32 - Chronic diastolic (congestive ) heart failure Is this a current diagnosis for this admission?: Yes (7) Chronic atrial fibrillation Is this a current diagnosis for this admission?: Yes (8) Pleural effusion Is this a current diagnosis for this admission?: Yes (9) Hypokalemia due to inadequate potassium intake Is this a current diagnosis for this admission?: Yes - Time Time Spent with patient: 25-34 minutes Medications reviewed and adjusted accordingly: Yes Anticipated discharge: SNF - awaiting bed availability at either of our local SNF. - Inpatient Certification Based on my medical assessment, after consideration of the patient's comorbidities, presenting symptoms, or acuity I expect that the services needed warrant INPATIENT care.: Yes I certify that my determination is in accordance with my understanding of Medicare's requirements for reasonable and necessary INPATIENT services [42 CFR 412.3e].: Yes Medical Necessity: Need Close Monitoring Due to Risk of Patient Decompensation, Need For Continuous Telemetry Monitoring, Need for Nebulizer Therapy and Monitoring of Response, Risk of Complication if Not Cared For in Hospital Post Hospital Care: D/C or Transfer Summary - Plan Summary Plan Summary: Continue current medication management and efforts at SNF placement.
[2017-07-18] MEDS ORDERED: MAG HYDROX/AL HYDROX/SIMETH SUSP 30 ML UDCUP PO PRN (19:56)
[2017-07-18] MEDS: ATORVASTATIN CALCIUM 40 MG TABLET PO SCH (22:01)
[2017-07-19] MEDS: IPRATROPIUM/ALBUTEROL 0.5-2.5 MG/3 ML AMPUL NEB SCH ×5 (03:17→20:23)
[2017-07-19] MEDS: LANSOPRAZOLE 30 MG TAB.RAP.DR PO SCH (07:59)
[2017-07-19] MEDS: ACETAMINOPHEN 325 MG TABLET PO PRN ×2 (08:02→21:07)
[2017-07-19] MEDS: DILTIAZEM HCL 120 MG CAP.SR.24H PO SCH (09:19)
[2017-07-19] MEDS: VALSARTAN 40 MG TABLET PO SCH (09:20)
[2017-07-19] MEDS: ACETAZOLAMIDE 500 MG CAPSULE.SA PO SCH (09:20)
[2017-07-19] MEDS: CALCIUM CARBONATE 250 MG/VITAMIN D3 125 UNIT TABLET PO SCH (09:20)
[2017-07-19] MEDS: NICOTINE 7 MG/24 HR PATCH.TD24 TD SCH (09:21)
[2017-07-19] MEDS: PREDNISONE 20 MG TABLET PO SCH (09:21)
[2017-07-19] MEDS: METOPROLOL SUCCINATE 25 MG TAB.SR.24H PO SCH (09:21)
[2017-07-19] MEDS: GUAIFENESIN 600 MG TABLET.SA PO SCH ×2 (09:21→21:08)
[2017-07-19] MEDS: CITALOPRAM HYDROBROMIDE 20 MG TABLET PO SCH (09:21)
[2017-07-19] MEDS: TIOTROPIUM BROMIDE DPI 5 CAP/KIT (18 MCG/CAP) IH SCH (11:36)
[2017-07-19] MEDS ORDERED: INFLUENZA ADLT QUAD (36MOS+) 2017-18 VAC 0.5 ML SYR IM PRN (15:00)
[2017-07-19] MEDS ORDERED: IPRATROPIUM/ALBUTEROL 0.5-2.5 MG/3 ML AMPUL NEB PRN (15:00)
[2017-07-19] MEDS: WARFARIN SODIUM 3 MG TABLET PO SCH (17:57)
[2017-07-19] MEDS: MULTIVIT-STRESS FORMULA/ZINC TABLET PO SCH (17:57)
--- NOTE | 2017-07-19 19:58 | PDOC PROGRESS REPORT ---
Subjective Progress Note for:: 07/19/17 Subjective:: No chest pain. Breathing is stable with minimal use of supplemental oxygen via nasal cannula at 2L/min so far today. No fever or chills. No abdominal pain, nausea or vomiting. Awaiting bed allocation at [facility] for short term rehabilitation. Physical Exam Vital Signs: Temp Pulse Resp BP Pulse Ox 99.9 F 73 16 135/55 H 95 07/19/17 15:52 07/19/17 16:58 07/19/17 16:58 07/19/17 15:52 07/19/17 16:58 Intake & Output 07/18/17 07/19/17 07/20/17 06:59 06:59 06:59 Intake Total 537 390 380 Balance 537 390 380 Weight 38 kg 37.2 kg Physical Exam: General appearance: PRESENT: no acute distress, mild distress - remain on supplemental oxygen. Head exam: PRESENT: atraumatic, normocephalic Eye exam: PRESENT: conjunctiva pink, EOMI, PERRLA. ABSENT: scleral icterus Mouth exam: PRESENT: moist Teeth exam: PRESENT: poor dentition Respiratory exam: PRESENT: decreased breath sounds bilateral lower lung bases, no significant wheezing or rhonchi. Cardiovascular exam: PRESENT: irregular rhythm, +S1, +S2. ABSENT: diastolic murmur, rubs, systolic murmur Vascular exam: PRESENT: normal capillary refill. ABSENT: pallor GI/Abdominal exam: PRESENT: normal bowel sounds, soft. ABSENT: distended, guarding, mass, organomegaly, rebound, tenderness Extremities exam: ABSENT: pedal edema Musculoskeletal exam: PRESENT: deformity - related to joint involvement with arthritis Neurological exam: PRESENT: alert, awake, oriented to person, oriented to place , oriented to time, oriented to situation, CN II-XII grossly intact. ABSENT: motor sensory deficit Psychiatric exam: PRESENT: appropriate affect, normal mood. ABSENT: homicidal ideation, suicidal ideation Skin exam: PRESENT: dry, intact, warm. ABSENT: cyanosis, rash Results Laboratory Results: 07/12/17 06:05 07/13/17 04:57 Impressions: Thoracentesis Ultrasound 07/13/17 08:00 IMPRESSION: SUCCESSFUL LEFT THORACENTESIS USING ULTRASOUND GUIDANCE. Chest X-Ray 07/13/17 12:05 IMPRESSION: No pneumothorax post left thoracentesis. Assessment & Plan - Diagnosis (1) Acute and chronic respiratory failure ([id number]) Qualifiers: Respiratory failure complication: hypoxia and hypercapnia Qualified Code(s) : J96.21 - Acute and chronic respiratory failure with hypoxia; J96.22 - Acute and chronic respiratory failure with hypercapnia; J96.22 - Acute and chronic respiratory failure with hypercapnia; J96.22 - Acute and chronic respiratory failure with hypercapnia Is this a current diagnosis for this admission?: Yes (2) CO2 narcosis Is this a current diagnosis for this admission?: Yes (3) COPD (chronic obstructive pulmonary disease) Qualifiers: COPD type: COPD with acute exacerbation Qualified Code(s): J44.1 - Chronic obstructive pulmonary disease with (acute) exacerbation Is this a current diagnosis for this admission?: Yes (4) Acute renal injury due to hypovolemia Is this a current diagnosis for this admission?: Yes (5) Hyponatremia with extracellular fluid depletion Is this a current diagnosis for this admission?: Yes (6) Congestive heart failure (CHF) Qualifiers: Congestive heart failure type: diastolic Congestive heart failure chronicity: chronic Qualified Code(s): I50.32 - Chronic diastolic (congestive ) heart failure Is this a current diagnosis for this admission?: Yes (7) Chronic atrial fibrillation Is this a current diagnosis for this admission?: Yes (8) Pleural effusion Is this a current diagnosis for this admission?: Yes (9) Hypokalemia due to inadequate potassium intake Is this a current diagnosis for this admission?: Yes - Time Time Spent with patient: 25-34 minutes Medications reviewed and adjusted accordingly: Yes Anticipated discharge: SNF - Inpatient Certification Based on my medical assessment, after consideration of the patient's comorbidities, presenting symptoms, or acuity I expect that the services needed warrant INPATIENT care.: Yes I certify that my determination is in accordance with my understanding of Medicare's requirements for reasonable and necessary INPATIENT services [42 CFR 412.3e].: Yes Medical Necessity: Need Close Monitoring Due to Risk of Patient Decompensation, Need For Continuous Telemetry Monitoring, Need for Nebulizer Therapy and Monitoring of Response, Risk of Complication if Not Cared For in Hospital Post Hospital Care: D/C or Transfer Summary - Plan Summary Plan Summary: Continue all current medication management and efforts at SNF placement.
[2017-07-19] MEDS: ATORVASTATIN CALCIUM 40 MG TABLET PO SCH (21:08)
[2017-07-19] MEDS: LATANOPROST 0.005% OPH SOLN 2.5 ML OU SCH (23:44)
[2017-07-20] MEDS: IPRATROPIUM/ALBUTEROL 0.5-2.5 MG/3 ML AMPUL NEB SCH ×7 (00:11→23:42)
[2017-07-20 05:35] LABS: PROTHROMBIN TIME 20.7 SEC (11.4-15.4)
[2017-07-20] MEDS: LANSOPRAZOLE 30 MG TAB.RAP.DR PO SCH (07:35)
[2017-07-20] MEDS: NICOTINE 7 MG/24 HR PATCH.TD24 TD SCH (10:27)
[2017-07-20] MEDS: ACETAZOLAMIDE 500 MG CAPSULE.SA PO SCH (10:28)
[2017-07-20] MEDS: ACETAMINOPHEN 325 MG TABLET PO PRN ×3 (10:28→23:31)
[2017-07-20] MEDS: CITALOPRAM HYDROBROMIDE 20 MG TABLET PO SCH (10:29)
[2017-07-20] MEDS: GUAIFENESIN 600 MG TABLET.SA PO SCH ×2 (10:29→21:41)
[2017-07-20] MEDS: METOPROLOL SUCCINATE 25 MG TAB.SR.24H PO SCH (10:30)
[2017-07-20] MEDS: VALSARTAN 40 MG TABLET PO SCH (10:30)
[2017-07-20] MEDS: DILTIAZEM HCL 120 MG CAP.SR.24H PO SCH (10:30)
[2017-07-20] MEDS: CALCIUM CARBONATE 250 MG/VITAMIN D3 125 UNIT TABLET PO SCH (10:32)
[2017-07-20] MEDS: TIOTROPIUM BROMIDE DPI 5 CAP/KIT (18 MCG/CAP) IH SCH (10:33)
[2017-07-20] MEDS: PREDNISONE 20 MG TABLET PO SCH (10:33)
[2017-07-20] MEDS: WARFARIN SODIUM 3 MG TABLET PO SCH (17:44)
[2017-07-20] MEDS: MULTIVIT-STRESS FORMULA/ZINC TABLET PO SCH (17:44)
--- NOTE | 2017-07-20 17:47 | PDOC PROGRESS REPORT ---
Subjective Progress Note for:: 07/20/17 Subjective:: No chest pain. Breathing is stable on supplemental oxygen via nasal cannula at 2L/min so far today. No fever or chills. No abdominal pain, nausea or vomiting. Awaiting bed allocation at [facility] for short term rehabilitation. Physical Exam Vital Signs: Temp Pulse Resp BP Pulse Ox 97.5 F 68 14 124/49 L 96 07/20/17 15:13 07/20/17 15:40 07/20/17 15:40 07/20/17 15:13 07/20/17 15:40 Intake & Output 07/19/17 07/20/17 07/21/17 06:59 06:59 06:59 Intake Total 390 1401 370 Balance 390 1401 370 Weight 37.2 kg 37.1 kg Physical Exam: General appearance: PRESENT: no acute distress, mild distress - remain on supplemental oxygen. Head exam: PRESENT: atraumatic, normocephalic Eye exam: PRESENT: conjunctiva pink, EOMI, PERRLA. ABSENT: scleral icterus Mouth exam: PRESENT: moist Teeth exam: PRESENT: poor dentition Respiratory exam: PRESENT: decreased breath sounds bilateral lower lung bases, no significant wheezing or rhonchi. Cardiovascular exam: PRESENT: irregular rhythm, +S1, +S2. ABSENT: diastolic murmur, rubs, systolic murmur Vascular exam: PRESENT: normal capillary refill. ABSENT: pallor GI/Abdominal exam: PRESENT: normal bowel sounds, soft. ABSENT: distended, guarding, mass, organomegaly, rebound, tenderness Extremities exam: ABSENT: pedal edema Musculoskeletal exam: PRESENT: deformity - related to joint involvement with arthritis Neurological exam: PRESENT: alert, awake, oriented to person, oriented to place , oriented to time, oriented to situation, CN II-XII grossly intact. ABSENT: motor sensory deficit Psychiatric exam: PRESENT: appropriate affect, normal mood. ABSENT: homicidal ideation, suicidal ideation Skin exam: PRESENT: dry, intact, warm. ABSENT: cyanosis, rash Results Laboratory Results: 07/12/17 06:05 07/13/17 04:57 Impressions: Thoracentesis Ultrasound 07/13/17 08:00 IMPRESSION: SUCCESSFUL LEFT THORACENTESIS USING ULTRASOUND GUIDANCE. Chest X-Ray 07/13/17 12:05 IMPRESSION: No pneumothorax post left thoracentesis. Assessment & Plan - Diagnosis (1) Acute and chronic respiratory failure ([id number]) Qualifiers: Respiratory failure complication: hypoxia and hypercapnia Qualified Code(s) : J96.21 - Acute and chronic respiratory failure with hypoxia; J96.22 - Acute and chronic respiratory failure with hypercapnia; J96.22 - Acute and chronic respiratory failure with hypercapnia; J96.22 - Acute and chronic respiratory failure with hypercapnia Is this a current diagnosis for this admission?: Yes (2) CO2 narcosis Is this a current diagnosis for this admission?: Yes (3) COPD (chronic obstructive pulmonary disease) Qualifiers: COPD type: COPD with acute exacerbation Qualified Code(s): J44.1 - Chronic obstructive pulmonary disease with (acute) exacerbation Is this a current diagnosis for this admission?: Yes (4) Acute renal injury due to hypovolemia Is this a current diagnosis for this admission?: Yes (5) Hyponatremia with extracellular fluid depletion Is this a current diagnosis for this admission?: Yes (6) Congestive heart failure (CHF) Qualifiers: Congestive heart failure type: diastolic Congestive heart failure chronicity: chronic Qualified Code(s): I50.32 - Chronic diastolic (congestive ) heart failure Is this a current diagnosis for this admission?: Yes (7) Chronic atrial fibrillation Is this a current diagnosis for this admission?: Yes (8) Pleural effusion Is this a current diagnosis for this admission?: Yes (9) Hypokalemia due to inadequate potassium intake Is this a current diagnosis for this admission?: Yes - Time Time Spent with patient: 25-34 minutes Medications reviewed and adjusted accordingly: Yes Anticipated discharge: SNF - for short term rehabilitation Within: Other - Inpatient Certification Based on my medical assessment, after consideration of the patient's comorbidities, presenting symptoms, or acuity I expect that the services needed warrant INPATIENT care.: Yes I certify that my determination is in accordance with my understanding of Medicare's requirements for reasonable and necessary INPATIENT services [42 CFR 412.3e].: Yes Medical Necessity: Need Close Monitoring Due to Risk of Patient Decompensation, Need For Continuous Telemetry Monitoring, Need for Nebulizer Therapy and Monitoring of Response, Risk of Complication if Not Cared For in Hospital Post Hospital Care: D/C or Transfer Summary - Plan Summary Plan Summary: Continue current medication management. I discussed case with discharger associate merchandise planner today and delay is due to no available bed at [facility] and [facility] is not allowed to admit new patient for now.
[2017-07-20] MEDS: ATORVASTATIN CALCIUM 40 MG TABLET PO SCH (21:41)
[2017-07-20] MEDS: LATANOPROST 0.005% OPH SOLN 2.5 ML OU SCH (22:09)
[2017-07-21] MEDS: IPRATROPIUM/ALBUTEROL 0.5-2.5 MG/3 ML AMPUL NEB SCH ×5 (04:09→20:42)
[2017-07-21] MEDS: LANSOPRAZOLE 30 MG TAB.RAP.DR PO SCH (05:14)
[2017-07-21 05:15] LABS: PROTHROMBIN TIME 22.6 SEC (11.4-15.4)
[2017-07-21] MEDS: ACETAZOLAMIDE 500 MG CAPSULE.SA PO SCH (10:45)
[2017-07-21] MEDS: VALSARTAN 40 MG TABLET PO SCH (10:45)
[2017-07-21] MEDS: NICOTINE 7 MG/24 HR PATCH.TD24 TD SCH (10:46)
[2017-07-21] MEDS: PREDNISONE 20 MG TABLET PO SCH (10:46)
[2017-07-21] MEDS: CITALOPRAM HYDROBROMIDE 20 MG TABLET PO SCH (10:46)
[2017-07-21] MEDS: CALCIUM CARBONATE 250 MG/VITAMIN D3 125 UNIT TABLET PO SCH (10:46)
[2017-07-21] MEDS: GUAIFENESIN 600 MG TABLET.SA PO SCH ×2 (10:47→21:58)
[2017-07-21] MEDS: DILTIAZEM HCL 120 MG CAP.SR.24H PO SCH (10:47)
[2017-07-21] MEDS: METOPROLOL SUCCINATE 25 MG TAB.SR.24H PO SCH (10:48)
[2017-07-21] MEDS: TIOTROPIUM BROMIDE DPI 5 CAP/KIT (18 MCG/CAP) IH SCH (10:48)
[2017-07-21] MEDS: DOCUSATE SODIUM 100 MG CAPSULE PO PRN (15:43)
[2017-07-21] MEDS: ACETAMINOPHEN 325 MG TABLET PO PRN ×2 (15:46→21:58)
[2017-07-21] MEDS: MULTIVIT-STRESS FORMULA/ZINC TABLET PO SCH (17:14)
[2017-07-21] MEDS: WARFARIN SODIUM 3 MG TABLET PO SCH (17:15)
--- NOTE | 2017-07-21 17:26 | PDOC PROGRESS REPORT ---
Subjective Progress Note for:: 07/21/17 Subjective:: Patient is seen by the bedside she is stable, she is waiting for bed placement at a snf home for rehabilitation Physical Exam Vital Signs: Temp Pulse Resp BP Pulse Ox 98.6 F 59 L 20 124/59 L 100 07/21/17 16:12 07/21/17 16:12 07/21/17 16:12 07/21/17 16:12 07/21/17 16:12 Intake & Output 07/20/17 07/21/17 07/22/17 06:59 06:59 06:59 Intake Total 1401 985 237 Balance 1401 985 237 Weight 37.1 kg 37.2 kg General appearance: PRESENT: no acute distress Head exam: PRESENT: atraumatic, normocephalic Eye exam: PRESENT: PERRLA Ear exam: PRESENT: normal external ear exam Neck exam: PRESENT: full ROM Respiratory exam: PRESENT: decreased breath sounds Cardiovascular exam: PRESENT: RRR, +S1, +S2 Pulses: PRESENT: normal dorsalis pedis pul, +2 pedal pulses bilateral Vascular exam: PRESENT: normal capillary refill GI/Abdominal exam: PRESENT: normal bowel sounds, soft Rectal exam: PRESENT: deferred Neurological exam: PRESENT: alert Psychiatric exam: PRESENT: appropriate affect, normal mood Skin exam: PRESENT: dry, intact, warm Results Laboratory Results: 07/12/17 06:05 07/13/17 04:57 Impressions: Thoracentesis Ultrasound 07/13/17 08:00 IMPRESSION: SUCCESSFUL LEFT THORACENTESIS USING ULTRASOUND GUIDANCE. Chest X-Ray 07/13/17 12:05 IMPRESSION: No pneumothorax post left thoracentesis. Assessment & Plan - Diagnosis (1) Acute and chronic respiratory failure ([id number]) Qualifiers: Respiratory failure complication: hypoxia and hypercapnia Qualified Code(s) : J96.21 - Acute and chronic respiratory failure with hypoxia; J96.22 - Acute and chronic respiratory failure with hypercapnia; J96.22 - Acute and chronic respiratory failure with hypercapnia; J96.22 - Acute and chronic respiratory failure with hypercapnia Is this a current diagnosis for this admission?: Yes (2) Acute renal injury due to hypovolemia Is this a current diagnosis for this admission?: Yes (3) COPD (chronic obstructive pulmonary disease) Qualifiers: COPD type: COPD with acute exacerbation Qualified Code(s): J44.1 - Chronic obstructive pulmonary disease with (acute) exacerbation Is this a current diagnosis for this admission?: Yes (5) Chronic atrial fibrillation Is this a current diagnosis for this admission?: Yes (6) Hypokalemia due to inadequate potassium intake Is this a current diagnosis for this admission?: Yes (7) Hyponatremia with extracellular fluid depletion Is this a current diagnosis for this admission?: Yes (8) Pleural effusion Is this a current diagnosis for this admission?: Yes
[2017-07-21] MEDS: ATORVASTATIN CALCIUM 40 MG TABLET PO SCH (21:57)
[2017-07-21] MEDS: LATANOPROST 0.005% OPH SOLN 2.5 ML OU SCH (21:58)
[2017-07-22] MEDS: IPRATROPIUM/ALBUTEROL 0.5-2.5 MG/3 ML AMPUL NEB SCH ×6 (00:25→21:13)
[2017-07-22] MEDS: LANSOPRAZOLE 30 MG TAB.RAP.DR PO SCH (05:26)
[2017-07-22 06:01] LABS: PROTHROMBIN TIME 23.3 SEC (11.4-15.4)
[2017-07-22] MEDS: PREDNISONE 20 MG TABLET PO SCH (10:43)
[2017-07-22] MEDS: VALSARTAN 40 MG TABLET PO SCH (10:43)
[2017-07-22] MEDS: GUAIFENESIN 600 MG TABLET.SA PO SCH ×2 (10:43→21:26)
[2017-07-22] MEDS: CALCIUM CARBONATE 250 MG/VITAMIN D3 125 UNIT TABLET PO SCH (10:43)
[2017-07-22] MEDS: CITALOPRAM HYDROBROMIDE 20 MG TABLET PO SCH (10:44)
[2017-07-22] MEDS: METOPROLOL SUCCINATE 25 MG TAB.SR.24H PO SCH (10:44)
[2017-07-22] MEDS: DILTIAZEM HCL 120 MG CAP.SR.24H PO SCH (10:44)
[2017-07-22] MEDS: ACETAZOLAMIDE 500 MG CAPSULE.SA PO SCH (10:44)
[2017-07-22] MEDS: NICOTINE 7 MG/24 HR PATCH.TD24 TD SCH (10:45)
[2017-07-22] MEDS: TIOTROPIUM BROMIDE DPI 5 CAP/KIT (18 MCG/CAP) IH SCH (10:45)
[2017-07-22] MEDS ORDERED: BISACODYL 5 MG TABEC PO ONE (17:15)
[2017-07-22] MEDS: WARFARIN SODIUM 3 MG TABLET PO SCH (17:32)
[2017-07-22] MEDS: MULTIVIT-STRESS FORMULA/ZINC TABLET PO SCH (17:32)
[2017-07-22] MEDS: ACETAMINOPHEN 325 MG TABLET PO PRN (21:25)
[2017-07-22] MEDS: ATORVASTATIN CALCIUM 40 MG TABLET PO SCH (21:26)
[2017-07-22] MEDS: LATANOPROST 0.005% OPH SOLN 2.5 ML OU SCH (21:26)
--- NOTE | 2017-07-22 22:09 | PDOC PROGRESS REPORT ---
Subjective Progress Note for:: 07/22/17 Subjective:: Patient was seen by the bedside, she has no new complaints, she hopefully be transferred to halfway tomorrow Physical Exam Vital Signs: Temp Pulse Resp BP Pulse Ox 97.9 F 72 20 124/54 L 100 07/22/17 19:49 07/22/17 19:49 07/22/17 19:49 07/22/17 19:49 07/22/17 19:49 Intake & Output 07/21/17 07/22/17 07/23/17 06:59 06:59 06:59 Intake Total 985 1770 460 Balance 985 1770 460 Weight 37.2 kg 38 kg General appearance: PRESENT: no acute distress Head exam: PRESENT: atraumatic, normocephalic Eye exam: PRESENT: PERRLA Ear exam: PRESENT: normal external ear exam Mouth exam: PRESENT: moist, tongue midline Neck exam: PRESENT: full ROM. ABSENT: carotid bruit, JVD, lymphadenopathy, thyromegaly Respiratory exam: PRESENT: clear to auscultation leslie Cardiovascular exam: PRESENT: +S1, +S2 Pulses: PRESENT: normal dorsalis pedis pul, +2 pedal pulses bilateral Vascular exam: PRESENT: normal capillary refill GI/Abdominal exam: PRESENT: normal bowel sounds, soft. ABSENT: distended, guarding, mass, organolmegaly, rebound, tenderness Rectal exam: PRESENT: deferred Neurological exam: PRESENT: alert, CN II-XII grossly intact Psychiatric exam: PRESENT: appropriate affect, normal mood. ABSENT: homicidal ideation, suicidal ideation Skin exam: PRESENT: dry, intact, warm. ABSENT: cyanosis, rash Results Laboratory Results: 07/12/17 06:05 07/13/17 04:57 Impressions: Thoracentesis Ultrasound 07/13/17 08:00 IMPRESSION: SUCCESSFUL LEFT THORACENTESIS USING ULTRASOUND GUIDANCE. Chest X-Ray 07/13/17 12:05 IMPRESSION: No pneumothorax post left thoracentesis. Assessment & Plan - Diagnosis (1) Acute and chronic respiratory failure ([id number]) Qualifiers: Respiratory failure complication: hypoxia and hypercapnia Qualified Code(s) : J96.21 - Acute and chronic respiratory failure with hypoxia; J96.22 - Acute and chronic respiratory failure with hypercapnia; J96.22 - Acute and chronic respiratory failure with hypercapnia; J96.22 - Acute and chronic respiratory failure with hypercapnia Is this a current diagnosis for this admission?: Yes (2) Acute renal injury due to hypovolemia Is this a current diagnosis for this admission?: Yes (3) COPD (chronic obstructive pulmonary disease) Qualifiers: COPD type: COPD with acute exacerbation Qualified Code(s): J44.1 - Chronic obstructive pulmonary disease with (acute) exacerbation Is this a current diagnosis for this admission?: Yes (5) Chronic atrial fibrillation Is this a current diagnosis for this admission?: Yes (6) Hypokalemia due to inadequate potassium intake Is this a current diagnosis for this admission?: Yes (7) Hyponatremia with extracellular fluid depletion Is this a current diagnosis for this admission?: Yes (8) Pleural effusion Is this a current diagnosis for this admission?: Yes
[2017-07-23] MEDS: IPRATROPIUM/ALBUTEROL 0.5-2.5 MG/3 ML AMPUL NEB SCH ×6 (01:00→20:49)
[2017-07-23] MEDS: LANSOPRAZOLE 30 MG TAB.RAP.DR PO SCH (05:18)
[2017-07-23 06:26] LABS: PROTHROMBIN TIME 21.5 SEC (11.4-15.4)
[2017-07-23] MEDS: ACETAZOLAMIDE 500 MG CAPSULE.SA PO SCH (09:15)
[2017-07-23] MEDS: CITALOPRAM HYDROBROMIDE 20 MG TABLET PO SCH (09:16)
[2017-07-23] MEDS: DILTIAZEM HCL 120 MG CAP.SR.24H PO SCH (09:16)
[2017-07-23] MEDS: CALCIUM CARBONATE 250 MG/VITAMIN D3 125 UNIT TABLET PO SCH (09:16)
[2017-07-23] MEDS: VALSARTAN 40 MG TABLET PO SCH (09:17)
[2017-07-23] MEDS: GUAIFENESIN 600 MG TABLET.SA PO SCH ×2 (09:17→21:38)
[2017-07-23] MEDS: PREDNISONE 20 MG TABLET PO SCH (09:17)
[2017-07-23] MEDS: METOPROLOL SUCCINATE 25 MG TAB.SR.24H PO SCH (09:17)
[2017-07-23] MEDS: NICOTINE 7 MG/24 HR PATCH.TD24 TD SCH (09:18)
[2017-07-23] MEDS: TIOTROPIUM BROMIDE DPI 5 CAP/KIT (18 MCG/CAP) IH SCH (09:18)
[2017-07-23] MEDS: WARFARIN SODIUM 3 MG TABLET PO SCH (18:20)
[2017-07-23] MEDS: MULTIVIT-STRESS FORMULA/ZINC TABLET PO SCH (18:20)
--- NOTE | 2017-07-23 19:05 | PDOC PROGRESS REPORT ---
Subjective Progress Note for:: 07/23/17 Subjective:: PAtient still awaiting bed assessment at local SNF. She has been ambulating on the floor without any significant assistance. No chest pain. Breathing is stable on supplemental oxygen via nasal cannula at 2L/min. No fever or chills. No abdominal pain, nausea or vomiting. Physical Exam Vital Signs: Temp Pulse Resp BP Pulse Ox 97.9 F 78 16 124/60 97 07/23/17 15:42 07/23/17 15:49 07/23/17 15:49 07/23/17 15:42 07/23/17 15:49 Intake & Output 07/22/17 07/23/17 07/24/17 06:59 06:59 06:59 Intake Total 1770 703 656 Balance 1770 703 656 Weight 38 kg 38 kg Physical Exam: General appearance: PRESENT: no acute distress, mild distress - remain on supplemental oxygen. Head exam: PRESENT: atraumatic, normocephalic Eye exam: PRESENT: conjunctiva pink, EOMI, PERRLA. ABSENT: scleral icterus Mouth exam: PRESENT: moist Teeth exam: PRESENT: poor dentition Respiratory exam: PRESENT: decreased breath sounds bilateral lower lung bases, no significant wheezing or rhonchi. Cardiovascular exam: PRESENT: irregular rhythm, +S1, +S2. ABSENT: diastolic murmur, rubs, systolic murmur Vascular exam: PRESENT: normal capillary refill. ABSENT: pallor GI/Abdominal exam: PRESENT: normal bowel sounds, soft. ABSENT: distended, guarding, mass, organomegaly, rebound, tenderness Extremities exam: ABSENT: pedal edema Musculoskeletal exam: PRESENT: deformity - related to joint involvement with arthritis Neurological exam: PRESENT: alert, awake, oriented to person, oriented to place , oriented to time, oriented to situation, CN II-XII grossly intact. ABSENT: motor sensory deficit Psychiatric exam: PRESENT: appropriate affect, normal mood. ABSENT: homicidal ideation, suicidal ideation Skin exam: PRESENT: dry, intact, warm. ABSENT: cyanosis, rash Results Laboratory Results: 07/12/17 06:05 07/13/17 04:57 Impressions: Thoracentesis Ultrasound 07/13/17 08:00 IMPRESSION: SUCCESSFUL LEFT THORACENTESIS USING ULTRASOUND GUIDANCE. Chest X-Ray 07/13/17 12:05 IMPRESSION: No pneumothorax post left thoracentesis. Assessment & Plan - Diagnosis (1) Acute and chronic respiratory failure ([id number]) Qualifiers: Respiratory failure complication: hypoxia and hypercapnia Qualified Code(s) : J96.21 - Acute and chronic respiratory failure with hypoxia; J96.22 - Acute and chronic respiratory failure with hypercapnia; J96.22 - Acute and chronic respiratory failure with hypercapnia; J96.22 - Acute and chronic respiratory failure with hypercapnia Is this a current diagnosis for this admission?: Yes (2) CO2 narcosis Is this a current diagnosis for this admission?: Yes (3) COPD (chronic obstructive pulmonary disease) Qualifiers: COPD type: COPD with acute exacerbation Qualified Code(s): J44.1 - Chronic obstructive pulmonary disease with (acute) exacerbation Is this a current diagnosis for this admission?: Yes (4) Acute renal injury due to hypovolemia Is this a current diagnosis for this admission?: Yes (5) Hyponatremia with extracellular fluid depletion Is this a current diagnosis for this admission?: Yes (6) Congestive heart failure (CHF) Qualifiers: Congestive heart failure type: diastolic Congestive heart failure chronicity: chronic Qualified Code(s): I50.32 - Chronic diastolic (congestive ) heart failure Is this a current diagnosis for this admission?: Yes (7) Chronic atrial fibrillation Is this a current diagnosis for this admission?: Yes (8) Pleural effusion Is this a current diagnosis for this admission?: Yes (9) Hypokalemia due to inadequate potassium intake Is this a current diagnosis for this admission?: Yes - Time Time Spent with patient: 25-34 minutes Medications reviewed and adjusted accordingly: Yes Anticipated discharge: Home with Homehealth - patient is agreeable to [facility] service with physocal therapy. Within: within 24 hours - if there is no bed assignment tomorrow she will be discharge home with [facility] serivices. - Inpatient Certification Based on my medical assessment, after consideration of the patient's comorbidities, presenting symptoms, or acuity I expect that the services needed warrant INPATIENT care.: Yes I certify that my determination is in accordance with my understanding of Medicare's requirements for reasonable and necessary INPATIENT services [42 CFR 412.3e].: Yes Medical Necessity: Need Close Monitoring Due to Risk of Patient Decompensation, Need For Continuous Telemetry Monitoring, Need for Nebulizer Therapy and Monitoring of Response, Risk of Complication if Not Cared For in Hospital Post Hospital Care: D/C or Transfer Summary - Plan Summary Plan Summary: Decrease Prednisone to 10 mg p.o daily. Continue all other current medication management.
[2017-07-23] MEDS: ATORVASTATIN CALCIUM 40 MG TABLET PO SCH (21:37)
[2017-07-23] MEDS: LATANOPROST 0.005% OPH SOLN 2.5 ML OU SCH (21:38)
[2017-07-23] MEDS: ACETAMINOPHEN 325 MG TABLET PO PRN (21:44)
[2017-07-24] MEDS: IPRATROPIUM/ALBUTEROL 0.5-2.5 MG/3 ML AMPUL NEB SCH ×6 (00:21→20:15)
[2017-07-24] MEDS: LANSOPRAZOLE 30 MG TAB.RAP.DR PO SCH (06:44)
[2017-07-24] MEDS ORDERED: PREDNISONE 10 MG TABLET PO SCH (10:00)
[2017-07-24] MEDS: METOPROLOL SUCCINATE 25 MG TAB.SR.24H PO SCH (10:29)
[2017-07-24] MEDS: ACETAZOLAMIDE 500 MG CAPSULE.SA PO SCH (10:30)
[2017-07-24] MEDS: CITALOPRAM HYDROBROMIDE 20 MG TABLET PO SCH (10:30)
[2017-07-24] MEDS: DILTIAZEM HCL 120 MG CAP.SR.24H PO SCH (10:30)
[2017-07-24] MEDS: CALCIUM CARBONATE 250 MG/VITAMIN D3 125 UNIT TABLET PO SCH (10:30)
[2017-07-24] MEDS: VALSARTAN 40 MG TABLET PO SCH (10:30)
[2017-07-24] MEDS: GUAIFENESIN 600 MG TABLET.SA PO SCH (10:30)
[2017-07-24] MEDS: NICOTINE 7 MG/24 HR PATCH.TD24 TD SCH (10:31)
[2017-07-24] MEDS: ACETAMINOPHEN 325 MG TABLET PO PRN ×2 (10:43→17:30)
[2017-07-24] MEDS: TIOTROPIUM BROMIDE DPI 5 CAP/KIT (18 MCG/CAP) IH SCH (12:18)
[2017-07-24 17:23] VITALS: BP 113/51
[2017-07-24] MEDS: WARFARIN SODIUM 3 MG TABLET PO SCH (17:28)
[2017-07-24] MEDS: MULTIVIT-STRESS FORMULA/ZINC TABLET PO SCH (17:28)
--- NOTE | 2017-07-24 19:51 | PDOC DISCHARGE SUMMARY ---
General - Admit/Disc Date/PCP Admission Date/Primary Care Provider: 07/09/17 03:10 Discharge Date: 07/24/17 - Discharge Diagnosis (1) Acute and chronic respiratory failure ([id number]) Is this a current diagnosis for this admission?: Yes (2) CO2 narcosis Is this a current diagnosis for this admission?: Yes (3) COPD (chronic obstructive pulmonary disease) Is this a current diagnosis for this admission?: Yes (4) Acute renal injury due to hypovolemia Is this a current diagnosis for this admission?: Yes (5) Hyponatremia with extracellular fluid depletion Is this a current diagnosis for this admission?: Yes (6) Congestive heart failure (CHF) Is this a current diagnosis for this admission?: Yes (7) Chronic atrial fibrillation Is this a current diagnosis for this admission?: Yes (8) Pleural effusion Is this a current diagnosis for this admission?: Yes (9) Hypokalemia due to inadequate potassium intake Is this a current diagnosis for this admission?: Yes - Additional Information Home Medications: Albuterol Sulfate [Proair HFA] 2 puff IH Q4HP PRN 06/11/17 Atorvastatin Calcium [Lipitor 40 mg Tablet] 40 mg PO QHS 06/11/17 Calcium Carbonate/Vitamin D3 [Oyster Shell 500-Vit D3 200 Tb] 1 each PO DAILY Citalopram Hydrobromide [Celexa 20 mg Tablet] 20 mg PO DAILY 06/11/17 Metoprolol Succinate [Toprol Xl 25 mg Tab.sr] 25 mg PO DAILY 06/11/17 Pantoprazole Sodium [Protonix] 40 mg PO DAILY 06/11/17 Warfarin Sodium [Coumadin 3 mg Tablet] 3 mg PO QPM 06/11/17 Acetazolamide [Diamox Sequel 500 mg] 500 mg PO DAILY #30 capsule.sa 06/20/17 Diltiazem HCl [Cardizem Cd 120 mg Capsule] 120 mg PO DAILY #30 cap.sr.24h Benzonatate [Tessalon Perle 100 mg Capsule] 100 mg PO Q8 07/09/17 Docusate Sodium [Colace 100 mg Capsule] 100 mg PO DAILYP PRN 07/09/17 Latanoprost [Xalatan] 1 drop OU QHS 07/09/17 Nicotine [Nicotine Patch] 1 patch TD DAILY 07/09/17 Tiotropium [place] [Spiriva Handihaler 18 mcg/dose (30 Dose)] 1 cap IN DAILY 11/24 Valsartan [Diovan 40 mg Tablet] 40 mg PO DAILY 07/09/17 Budesonide/Formoterol Fumarate [Symbicort 160-4.5 Mcg Inhaler] 2 inh IH BID #1 hfa.aer.ad 07/24/17 Prednisone [Deltasone 10 mg Tablet] 10 mg PO ASDIR PRN #10 tablet 07/24/17 History of Present Illness History of Present Illness: JUNAID VILCHIS is a 72 year old female known to my practice brought to the ED by EMS crew due to worsening difficulty with driving and reported hypoxemia. Sister at bedside attested to her compliance with Trilogy vent at home while sleeping and use of supplemental oxygen. She denied current cigarette smoking. There is associated generalized weakness and loss of balance with ambulation prior to activating EMS service. She denied any fever or chills. No chest pain. No nausea, vomiting or abdominal pain. Her appetite and oral intake remain a challenge. She was found with oxygen saturation at 60% at home by the EMS. Sister reported home oxygen level has been going down as the day progress prior to EMS arrival. She activated the EMS service due to patient becoming so week and not able to bear her own weight. Her morbidities include recent diagnosis of CHF, Chronic Atrial Fibrillation, Hypertension, Hyperlipidemia, End stage COPD with chronic respiratory failure with hypercapnia and hypoxemia, Osteoarthritis, and Depression. Hospital Course Hospital Course: She responded to acute COPD exacerbation treatment modality with BiPAP support. She was able to eventually get off BiPAP but continue to be in need of supplemental oxygen due to exertional related hypoxemia. Her oxygen saturation went down to low 80's with walking off supplemental oxygen. She had left thoracentesis with about 7560mL of fluid removed on 07/13/17. She is currently on tapering dose of Prednisone therapy. She was not able to transfer to SNF for short term rehabilitation due to unavailability of bed to the only available SNF locally, [facility]. She has been ambulating on the floor with fairly satisfactory effort and stable gait. She will be discharge home with [facility] services to include visiting nurse for medication management and physical therapy for home PT rehabilitation. Physical Exam Vital Signs: Temp Pulse Resp BP Pulse Ox 98.9 F 81 18 113/51 L 98 10/17/17 16:00 07/24/17 16:04 07/24/17 16:04 07/24/17 16:00 07/24/17 16:00 Intake & Output 07/23/17 07/24/17 07/25/17 06:59 06:59 06:59 Intake Total 703 1591 490 Balance 703 1591 490 Weight 38 kg 37.6 kg Physical Exam: General appearance: PRESENT: no acute distress, mild distress - remain on supplemental oxygen. Head exam: PRESENT: atraumatic, normocephalic Eye exam: PRESENT: conjunctiva pink, EOMI, PERRLA. ABSENT: scleral icterus Mouth exam: PRESENT: moist Teeth exam: PRESENT: poor dentition Respiratory exam: PRESENT: decreased breath sounds bilateral lower lung bases, no significant wheezing or rhonchi. Cardiovascular exam: PRESENT: irregular rhythm, +S1, +S2. ABSENT: diastolic murmur, rubs, systolic murmur Vascular exam: PRESENT: normal capillary refill. ABSENT: pallor GI/Abdominal exam: PRESENT: normal bowel sounds, soft. ABSENT: distended, guarding, mass, organomegaly, rebound, tenderness Extremities exam: ABSENT: pedal edema Musculoskeletal exam: PRESENT: deformity - related to joint involvement with arthritis Neurological exam: PRESENT: alert, awake, oriented to person, oriented to place , oriented to time, oriented to situation, CN II-XII grossly intact. ABSENT: motor sensory deficit Psychiatric exam: PRESENT: appropriate affect, normal mood. ABSENT: homicidal ideation, suicidal ideation Skin exam: PRESENT: dry, intact, warm. ABSENT: cyanosis, rash Results Laboratory Results: 07/12/17 06:05 07/13/17 04:57 Impressions: Thoracentesis Ultrasound 07/13/17 08:00 IMPRESSION: SUCCESSFUL LEFT THORACENTESIS USING ULTRASOUND GUIDANCE. Chest X-Ray 07/13/17 12:05 IMPRESSION: No pneumothorax post left thoracentesis. Qualifiers PATEINT BEING DISCHARGED WITH ANY OF THE FOLLOWING DIAGNOSIS?: No Plan Discharge Plan: D/C home with [facility] services for visiting nurse and physical therapy for rehabilitation. Follow up in the office as instructed upon discharge. I discussed with her respiratory service supplier bilingual inside sales representative regarding need for portable oxygen concentrator and it will be looked into on outpatient basis. Time Spent: Greater than 30 Minutes
== END 2017-07-24 21:35 | disposition home health service (06) | DRG 189 ==
LOC: ER 19:12 → UNDOADMIN 22:30 → EH 22:30 → 3S 07-09 00:40 → EH 07-09 03:10 → 3S 07-17 16:22
PROVIDERS: ADMIT Internal Medicine Geriatric Medicine; ATTEND Internal Medicine Geriatric Medicine
PROC: 0W9B3ZX Drainage of Left Pleural Cavity, Percutaneous Approach, Diagnostic (ICD-10-PCS; principal; 2017-07-13)
DX: J96.21 Acute and chronic respiratory failure with hypoxia (principal); J44.1 Chronic obstructive pulmonary disease with (acute) exacerbation; I50.32 Chronic diastolic (congestive) heart failure; E87.1 Hypo-osmolality and hyponatremia; N17.9 Acute kidney failure, unspecified; J90 Pleural effusion, not elsewhere classified; J98.11 Atelectasis; J96.22 Acute and chronic respiratory failure with hypercapnia; I48.2 Chronic atrial fibrillation; I25.10 Atherosclerotic heart disease of native coronary artery without angina pectoris; E87.6 Hypokalemia; I11.0 Hypertensive heart disease with heart failure; F41.8 Other specified anxiety disorders; E86.1 Hypovolemia; Z99.81 Dependence on supplemental oxygen; Z87.891 Personal history of nicotine dependence; Z79.01 Long term (current) use of anticoagulants; Z79.1 Long term (current) use of non-steroidal anti-inflammatories (NSAID); Z79.51 Long term (current) use of inhaled steroids; Z79.899 Other long term (current) drug therapy
CPT/HCPCS: 32555; 36415; 36600; 51702; 71010; 71020; 80048; 80053; 81001; 82550; 82553; 82803; 82945; 83605; 83735; 83880; 84157; 84484; 85025; 85027; 85610; 87040; 87070; 87075; 87086; 87205; 88305; 89050; 93005; 93010; 94640; 94660; 99291; G8978-GP; G8979-GP; G8980-GP; G8996-GN; G8997-GN; G8998-GN; J0696; J2920; J2930; J3490; J7512; J7620

== ENCOUNTER 2017-09-28 22:19 | Inpatient (IN) | payer MEDICARE, OTHER ==
[2017-09-28] MEDS ORDERED: IPRATROPIUM/ALBUTEROL 0.5-2.5 MG/3 ML AMPUL NEB ONE (22:32)
[2017-09-28] MEDS: MAGNESIUM SULFATE/D5W 1 GM/100 ML RTUPB IV SCH ×2 (22:41→23:22)
[2017-09-28 22:49] LABS: VENOUS BLOOD BASE EXCESS -4.5 mmol/L; VENOUS BLOOD HCO3 21.8 mmol/L (20-32); VENOUS BLOOD PCO2 45.1 mmHg (35-63); VENOUS BLOOD PH 7.3 (7.30-7.42)
[2017-09-28 22:56] LABS: HEMATOCRIT 26.1 % (36.0-47.0); HEMOGLOBIN 8.4 g/dL (12.0-15.5); MEAN CORPUSCULAR HEMOGLOBIN 31.6 pg (27.0-33.4); MEAN CORPUSCULAR HGB CONC 32.1 g/dL (32.0-36.0); MEAN CORPUSCULAR VOLUME 98 fl (80-97); PLATELET COUNT 338 10^3/uL (150-450); RED BLOOD COUNT 2.65 10^6/uL (3.72-5.28); RED CELL DISTRIBUTION WIDTH 18.1 % (11.5-14.0); WHITE BLOOD COUNT 17.4 10^3/uL (4.0-10.5)
[2017-09-28 23:03] LABS: ALANINE AMINOTRANSFERASE 26 U/L (9-52); ALBUMIN 2.8 g/dL (3.5-5.0); ALKALINE PHOSPHATASE 97 U/L (38-126); ANION GAP 12 (5-19); ASPARTATE AMINO TRANSFERASE 25 U/L (14-36); BILIRUBIN,DIRECT 0.4 mg/dL (0.0-0.4); BILIRUBIN,TOTAL 0.4 mg/dL (0.2-1.3); BLOOD UREA NITROGEN 19 mg/dL (7-20); CALCIUM 8.9 mg/dL (8.4-10.2); CARBON DIOXIDE 19 mmol/L (22-30); CHLORIDE 105 mmol/L (98-107); GLUCOSE 201 mg/dL (75-110); POTASSIUM 3.8 mmol/L (3.6-5.0); SODIUM 136.4 mmol/L (137-145); TOTAL PROTEIN 5.5 g/dL (6.3-8.2)
[2017-09-28 23:08] LABS: ABSOLUTE LYMPHOCYTES# (MANUAL) 2.8 10^3/uL (0.5-4.7); ABSOLUTE MONOCYTES # (MANUAL) 0.7 10^3/uL (0.1-1.4); ABSOLUTE NEUTROPHILS# (MANUAL) 13.4 10^3/uL (1.7-8.2); BAND NEUTROPHILS % (MANUAL) 1 % (3-5); BASOPHILS % (MANUAL) 0 % (0-2); EOSINOPHILS % (MANUAL) 3 % (0-6); LYMPHOCYTES % (MANUAL) 16 % (13-45); MONOCYTES % (MANUAL) 4 % (3-13); SEGMENTED NEUTROPHILS % (MAN) 76 % (42-78); TOTAL CELLS COUNTED 100
[2017-09-28 23:11] LABS: ANISOCYTOSIS 1+; OVALOCYTES SLIGHT; PLATELET COMMENT ADEQUATE; POIKILOCYTOSIS SLIGHT; POLYCHROMASIA SLIGHT; TOXIC GRANULATION SLIGHT
[2017-09-28 23:13] LABS: TEAR DROP CELLS SLIGHT
--- NOTE | 2017-09-28 23:13 | ER Document Report ---
ED General - General Chief Complaint: Breathing Difficulty Stated Complaint: DIFFICULTY BREATHING Time Seen by Provider: 09/28/17 22:23 Notes: Patient is a 72-year-old female presents with complaint of difficulty breathing. Patient history of COPD and chronic bronchitis. She is a former smoker quit 4 months ago. She says she has been having intermittent fevers for 2-3 weeks. Tonight she spiked fever again but then started having worsening difficulty breathing and felt bad. No chest pain. No vomiting. No abdominal pain. No other complaints at this time. She was given Solu-Medrol by the paramedics as well as 2 DuoNeb treatments. He was seen by Dr. Stark approximately week ago. She was placed on antibiotics and prednisone. She says she has completed these regimens feels that she is now getting worse. She says she was admitted to the hospital back in July but felt as if she had improved. TRAVEL OUTSIDE OF THE [place] IN LAST 30 DAYS: No - Related Data Allergies/Adverse Reactions: bee pollen [Bee Pollen] Allergy (Unknown, Verified 09/28/17 22:57) propoxyphene [From Darvocet-N] Allergy (Verified 09/28/17 22:57) venom-wasp [Wasp Venom] Allergy (Verified 09/28/17 22:57) Past Medical History - Social History Smoking Status: Former Smoker Frequency of alcohol use: None Drug Abuse: None Family History: Reviewed & Not Pertinent, COPD, Hypertension Patient has suicidal ideation: No Patient has homicidal ideation: No - Past Medical History Cardiac Medical History: Reports: Hx Atrial Fibrillation, Hx Congestive Heart Failure, Hx Coronary Artery Disease, Hx Hypercholesterolemia, Hx Hypertension Pulmonary Medical History: Reports: Hx Bronchitis, Hx COPD - stage 3, Hx Pneumonia Renal/ Medical History: Denies: Hx Peritoneal Dialysis Malignancy Medical History: Reports: Hx Breast Cancer - right, over 10 years ago GI Medical History: Reports: Hx Ulcer Musculoskeltal Medical History: Reports Hx Arthritis, Reports Hx Musculoskeletal Deformity, Reports Hx Musculoskeletal Trauma Psychiatric Medical History: Reports: Hx Anxiety, Hx Depression Traumatic Medical History: Reports: Hx Fractures Past Surgical History: Reports: Hx Breast Surgery - lumpectomy, needle biopsy - Immunizations Immunizations up to date: Yes Hx Diphtheria, Pertussis, Tetanus Vaccination: Yes Review of Systems - Review of Systems Notes: My Normal Review Basic REVIEW OF SYSTEMS: CONSTITUTIONAL : Fevers. EENT: Denies eye, ear, throat, or mouth pain or symptoms. Denies nasal or sinus congestion. CARDIOVASCULAR: Denies chest pain. RESPIRATORY: Difficulty breathing. Wheezing. GASTROINTESTINAL: Denies abdominal pain. Denies nausea, vomiting, or diarrhea. Denies constipation. Last BM: MUSCULOSKELETAL: Denies neck or back pain or joint pain or swelling. SKIN: Denies rash or skin lesions. NEUROLOGICAL: Denies altered mental status or loss of consciousness. Denies headache. Denies weakness or paralysis or loss of use of either side. Denies problems with gait or speech. Denies sensory or motor loss. ALL OTHER SYSTEMS REVIEWED AND NEGATIVE. Physical Exam - Vital signs Vitals: Resp 13 09/28/17 22:22 - Notes Notes: General Appearance: Well nourished, alert, cooperative, moderate acute distress , no obvious discomfort. Vitals: reviewed, See vital signs table. Head: no swelling or tenderness to the head Eyes: PERRL, EOMI, Conjuctiva clear Mouth: No decreasd moisture Throat: No tonsillar inflammation, No airway obstruction, No lymphadenopathy Neck: Supple, no neck tenderness Lungs: Use wheezing. No rales. Fair air exchange. Mild accessory muscle use. Mild tachypnea. Heart: Tachycardic rate, irregular rythm, No murmur, no rub Abdomen: Normal BS, soft, No rigidity, No abdominal tenderness, No guarding, no rebound, no abdominal masses, no organomegaly Extremities: strength 5/5 in all extremities, good pulses in all extremities, no swelling or tenderness in the extremities, no edema. Skin: warm, dry, appropriate color, no rash Neuro: speech clear, oriented x 3, normal affect, responds appropriately to questions. Course - Re-evaluation Re-evalutation: 09/29/17 00:08 Patient is a longer tachypneic. She still has some wheezing but is much improved. She has better air exchange. She is requiring still some supplemental oxygen. She is currently on 4 L of oxygen via nasal cannula with a pulse ox of 96%. Patient herself says she feels improved but still does not feel back to her baseline. She does not fever. Chest x-ray has a lot of scarring. Start to determine what could be pneumonia and what could be lung scarring. I will place her on antibiotics. I have spoken with Dr. Kurtz who is covering for Dr. Morataya who agrees to accept the patient for admission. Dictation of this chart was performed using voice recognition software; therefore, there may be some unintended grammatical errors. - Vital Signs Vital signs: Temp Pulse Resp BP Pulse Ox 99.3 F 94 21 H 135/50 H 97 09/28/17 22:24 09/28/17 23:27 09/28/17 23:27 09/28/17 22:24 09/28/17 23:00 - Laboratory Result Diagrams: 09/28/17 22:33 09/28/17 22:33 Laboratory results interpreted by me: 09/28/17 09/28/17 22:33 22:33 WBC 17.4 H RBC 2.65 L Hgb 8.4 L Hct 26.1 L MCV 98 H RDW 18.1 H Band Neutrophils % 1 L Abs Neuts (Manual) 13.4 H Sodium 136.4 L Carbon Dioxide 19 L Glucose 201 H Total Protein 5.5 L Albumin 2.8 L - EKG Interpretation by Me Additional EKG results interpreted by me: 09/28/17 23:12 EKG is reviewed and interpreted by me. EKG shows A. fib with a rate of 100 bpm. I do not see any obvious ST segment elevation. Of note lead V2 and V3 have a lot of artifact. field technical support consultant said they were unable to get a good read on this lead due to the patient having some difficulty breathing and chest movement from that. We will repeat EKG later once her breathing is under better control. QRS duration and QTc intervals are within normal range. Patient does have some slight ST segment depression inferior leads which is unchanged comparison to old EKG from July 08, 2017. Discharge - Discharge Clinical Impression: Bronchitis, Hypoxemia Atrial fibrillation Qualifiers: Atrial fibrillation type: chronic Qualified Code(s): I48.2 - Chronic atrial fibrillation Condition: Stable Disposition: ADMITTED INPATIENT Admitting Provider: Rafia Referrals: АНДРЕЙ MORATAYA MD [Primary Care Provider] - Follow up as needed
[2017-09-28] MEDS ORDERED: DOXYCYCLINE HYCLATE 100 MG TABLET PO ONE (23:54)
[2017-09-28] MEDS ORDERED: ALBUTEROL SULFATE 0.083% NEB 2.5 MG/3 ML AMPUL NEB ONE (23:55)
[2017-09-28] MEDS ORDERED: CEFTRIAXONE INJ 1000 MG VIAL IV ONE (23:55)
[2017-09-28] MEDS ORDERED: AZITHROMYCIN INJ 500 MG VIAL IV ONE (23:56)
[2017-09-29 00:12] LABS: INTERNATIONAL RATION (INR) 4.67; PROTHROMBIN TIME 45.9 SEC (11.4-15.4)
[2017-09-29] MEDS ORDERED: ALBUTEROL SULFATE HFA (90 MCG/PUFF) 8 GM MDI (1 MDI/ER DISP) IH PRN (03:11)
--- NOTE | 2017-09-29 07:53 | EKG REPORT ---
SEVERITY:- ABNORMAL ECG - ATRIAL FIBRILLATION, V-RATE 74-127 CONSIDER ANTEROSEPTAL INFARCT : Confirmed by: Emmanuel Gaytan MD 29-Sep-2017 07:52:34
--- NOTE | 2017-09-29 08:21 | RADIOLOGY REPORT (SQ) ---
EXAM DESCRIPTION: CHEST SINGLE VIEW COMPLETED DATE/TIME: 09/28/2017 10:54 pm REASON FOR STUDY: cough, fevers COMPARISON: 07/13/2017 EXAM PARAMETERS: NUMBER OF VIEWS: One view. TECHNIQUE: Single frontal radiographic view of the chest acquired. RADIATION DOSE: NA LIMITATIONS: None. FINDINGS: LUNGS AND PLEURA: Underlying emphysema. Stable small bilateral pleural effusions with ass ociated compressive atelectasis. No new opacities or pneumothorax. MEDIASTINUM AND HILAR STRUCTURES: Stable in size and contour. HEART AND VASCULAR STRUCTURES: Heart stable in size. Normal vasculature. BONES: No acute findings. HARDWARE: Stable. OTHER: No other significant finding. IMPRESSION: STABLE APPEARANCE OF THE CHEST INCLUDING UNDERLYING EMPHYSEMA AND SMALL BILATERAL PLEURA L EFFUSIONS. TECHNICAL DOCUMENTATION: JOB ID: [id number] 1991 [employer]- All Rights Reserved
[2017-09-29] MEDS: MULTIVITAMIN TABLET PO SCH (10:31)
[2017-09-29] MEDS: ACETAZOLAMIDE 500 MG CAPSULE.SA PO SCH (10:31)
[2017-09-29] MEDS: LANSOPRAZOLE 30 MG TAB.RAP.DR PO SCH (10:32)
[2017-09-29] MEDS: CITALOPRAM HYDROBROMIDE 20 MG TABLET PO SCH (10:32)
[2017-09-29] MEDS: CALCIUM CARBONATE 250 MG/VITAMIN D3 125 UNIT TABLET PO SCH (10:32)
[2017-09-29] MEDS: DILTIAZEM HCL 120 MG CAP.SR.24H PO SCH (10:32)
[2017-09-29] MEDS: METOPROLOL SUCCINATE 25 MG TAB.SR.24H PO SCH (10:33)
[2017-09-29] MEDS: BUDESONIDE/FORMOTEROL 160-4.5 MCG 60 PUFF/6 GM MDI IH SCH ×2 (10:33→17:00)
[2017-09-29] MEDS: TIOTROPIUM BROMIDE DPI 5 CAP/KIT (18 MCG/CAP) IH SCH (10:34)
[2017-09-29] MEDS: VALSARTAN 40 MG TABLET PO SCH (11:51)
[2017-09-29 14:34] LABS: HEMATOCRIT 26.5 % (36.0-47.0); HEMOGLOBIN 8.4 g/dL (12.0-15.5); MEAN CORPUSCULAR HEMOGLOBIN 30.8 pg (27.0-33.4); MEAN CORPUSCULAR HGB CONC 31.7 g/dL (32.0-36.0); MEAN CORPUSCULAR VOLUME 97 fl (80-97); PLATELET COUNT 357 10^3/uL (150-450); RED BLOOD COUNT 2.72 10^6/uL (3.72-5.28); RED CELL DISTRIBUTION WIDTH 17.4 % (11.5-14.0); WHITE BLOOD COUNT 18.3 10^3/uL (4.0-10.5)
--- NOTE | 2017-09-29 15:21 | RADIOLOGY REPORT (SQ) ---
EXAM DESCRIPTION: CT CHEST WITH COMPLETED DATE/TIME: 09/29/2017 3:02 pm REASON FOR STUDY: copd D46.0 REFRACTORY ANEMIA WITHOUT RING SIDEROBLASTS, SO STATED K92.2 GASTROI NTESTINAL HEMORRHAGE, UNSPECIFIED D46.1 REFRACTORY ANEMIA WITH RING SIDEROBLASTS COMPARISON: 06/10/2017 TECHNIQUE: CT scan of the chest performed using helical scanning technique with dynamic intravenous contrast injection. Images reviewed with lung, soft tissue and bone windows. Reconstructed coronal and sagittal MPR images reviewed. All images stored on PACS. All CT scanners at this facility use dose modulation, iterative reconstruction, and/or weight based d osing when appropriate to reduce radiation dose to as low as reasonably achievable (ALARA). [facility]: Dose Right [facility]: CareDose [facility]: Dose Right [facility]: Teradose 4D [facility]: Cytheris CONTRAST TYPE AND DOSE: contrast/concentration: Isovue 370.00 mg/ml; Total Contrast Delivered: 80.0 ml; Total Saline Delivered: 40.5 ml RENAL FUNCTION: GFR > 60. RADIATION DOSE: CT Rad equipment meets quality standard of care and radiation dose reduction techniq ues were employed. CTDIvol: 4.8 mGy. DLP: 190 mGy-cm. . LIMITATIONS: None. FINDINGS: LUNGS AND PLEURA: Stable chronic interstitial lung disease/scarring with new patchy multif ocal airspace disease involving the right greater than left upper lobes and bilateral superior segmen t lower lobes. Stable small/trace bilateral pleural effusions, left greater than right. No pneumoth orax. HILAR AND MEDIASTINAL STRUCTURES: No identified masses or abnormal nodes. HEART AND VASCULAR STRUCTURES: Extensive calcified and noncalcified plaque throughout the thoracic ao rta. No aneurysm or dissection. No pulmonary emboli. No pericardial effusion. HARDWARE: None in the chest. UPPER ABDOMEN: No significant findings. Limited exam. THYROID AND OTHER SOFT TISSUES: No masses. No adenopathy. BONES: No significant finding. OTHER: No other significant finding. IMPRESSION: INTERVAL DEVELOPMENT OF PATCHY MULTIFOCAL AIRSPACE DISEASE COMPATIBLE WITH PNEUMONIA. C ORRELATE WITH FEVER/ ELEVATED WHITE BLOOD CELL COUNT. NO PULMONARY EMBOLI OR ACUTE AORTIC INJURY. STABLE SMALL/TRACE BILATERAL PLEURAL EFFUSIONS. TECHNICAL DOCUMENTATION: JOB ID: [id number] Quality ID # [id number]: Final reports with documentation of one or more dose reduction techniques (e.g., Au tomated exposure control, adjustment of the mA and/or kV according to patient size, use of iterative reconstruction technique) 2010 [employer]- All Rights Reserved
[2017-09-29 15:46] LABS: ARTERIAL BLOOD BASE EXCESS -6.9 mmol/L; ARTERIAL BLOOD H2CO3 1.14 mmol/L (1.05-1.35); ARTERIAL BLOOD HCO3 18.7 mmol/L (20-26); ARTERIAL BLOOD O2 SATURATION 97.3 % (94-98); ARTERIAL BLOOD PCO2 37.8 mmHg (35-45); ARTERIAL BLOOD PH 7.31 (7.35-7.45); ARTERIAL BLOOD PO2 103.9 mmHg (80-100); ARTERIAL BLOOD TOTAL CO2 19.9 mmol/L (21-25)
[2017-09-29 15:47] LABS: ARTERIAL BLOOD FIO2 24%
[2017-09-29 15:48] LABS: INTERNATIONAL RATION (INR) 6.12; PROTHROMBIN TIME 56.6 SEC (11.4-15.4)
[2017-09-29] MEDS: NORMAL SALINE 1000 ML 1,000 ML IV PRN (16:02)
--- NOTE | 2017-09-29 16:11 | PDOC H&P ---
History of Present Illness Admission Date/PCP: 09/29/17 00:20 АНДРЕЙ SUTTON History of Present Illness: JUNAID VILCHIS is a 72 year old female she has very severe chronic obstructive pulmonary disease, she came to the emergency room last night for evaluation of shortness of breath, she was in the emergency room last week for similar complaints, she was seen treated and discharged from the ER about a week ago, she has a history of chronic atrial fibrillation in the emergency room she had increased heart rate, the chest x-ray was nondiagnostic. The emergency room physician wants patient admitted because of the increased heart rate. When I saw her on the floor admitting complaint was shortness of breath she also was coughing but the cough was not productive of sputum, on auscultation of the chest there was no florid wheeze to suggest acute COPD exacerbation but because of comorbid condition I thought we needed to get CT chest with contrast, she was initially brought in for observation, CT chest with contrast was done he showed stable chronic interstitial lung disease/scarring with new patchy multifocal airspace disease involving the right more than the left upper lobes bilateral superior segment of the lower lobes this constituted on interval change from previous lung imaging this is consistent with multifocal pneumonia there was also associated leukocytosis WBC was 17,000. She has relative hypoxemia the ABG on FiO2 of 24%, pH 7.31, PO2 103.9, PCO2 37.8, bicarbonate 18.7. The expected PCO2 for the level of bicarbonate should be 24-30 but the measured PCO2 37.8 suggesting acute metabolic acidosis and respiratory acidosis Past Medical History Cardiac Medical History: Reports: Atrial Fibrillation, Congestive Heart Failure , Coronary Artery Disease, Hyperlipidema, Hypertension Pulmonary Medical History: Reports: Bronchitis, Chronic Obstructive Pulmonary Disease (COPD) - stage 3, Pneumonia Malignancy Medical History: Reports: Breast Cancer - right, over 10 years ago Musculoskeltal Medical History: Reports: Arthritis Psychiatric Medical History: Reports: Depression Social History Smoking Status: Former Smoker Last Time Smoked: quit about 4 months ago, per patient Frequency of Alcohol Use: None Hx Recreational Drug Use: No Drugs: None Hx Prescription Drug Abuse: No Family History Family History: Reviewed & Not Pertinent, COPD, Hypertension Parental Family History Reviewed: Yes Children Family History Reviewed: Yes Sibling(s) Family History Reviewed.: Yes Medication/Allergy Home Medications: Acetazolamide [Diamox Sequel 500 mg] 500 mg PO DAILY 09/29/17 Albuterol Sulfate [Proair HFA Inhalation Aerosol 8.5 gm MDI] 2 puff PO Q4HP PRN 09/29/17 Atorvastatin Calcium [Lipitor 40 mg Tablet] 40 mg PO QHS 09/29/17 Budesonide/Formoterol Fumarate [Symbicort 160-4.5 Mcg Inhaler] 2 puff PO BID Calcium Carbonate/Vitamin D3 [Oyster Shell 500-Vit D3 200 Tb] 1 tab PO DAILY Citalopram Hydrobromide [Celexa 20 mg Tablet] 20 mg PO DAILY 09/29/17 Diltiazem HCl [Cardizem Cd 120 mg Capsule] 120 mg PO DAILY 09/29/17 Latanoprost [Xalatan 0.005% Oph Soln 2.5 ml] 1 drop OU QHS 09/29/17 Metoprolol Succinate [Toprol Xl 25 mg Tab.sr] 25 mg PO DAILY 09/29/17 Multivitamin [Daily Multiple Vitamin] 1 tab PO DAILY 09/29/17 Pantoprazole Sodium [Protonix] 40 mg PO DAILY 09/29/17 Tiotropium [place] [Spiriva Handihaler 18 mcg/dose (30 Dose)] 1 cap IH DAILY Valsartan [Diovan 40 mg Tablet] 40 mg PO DAILY 09/29/17 Warfarin Sodium [Coumadin 3 mg Tablet] 3 mg PO QHS 09/29/17 Allergies/Adverse Reactions: bee pollen [Bee Pollen] Allergy (Unknown, Verified 09/28/17 22:57) propoxyphene [From Darvocet-N] Allergy (Verified 09/28/17 22:57) venom-wasp [Wasp Venom] Allergy (Verified 09/28/17 22:57) Review of Systems Constitutional: ABSENT: chills, fever(s), headache(s), weight gain, weight loss Eyes: ABSENT: visual disturbances Ears: ABSENT: hearing changes Cardiovascular: PRESENT: dyspnea on exertion Respiratory: PRESENT: cough, dyspnea Gastrointestinal: ABSENT: abdominal pain, constipation, diarrhea, hematemesis, hematochezia, nausea, vomiting Genitourinary: ABSENT: dysuria, hematuria Musculoskeletal: ABSENT: joint swelling Integumentary: ABSENT: rash, wounds Neurological: ABSENT: abnormal gait, abnormal speech, confusion, dizziness, focal weakness, syncope Psychiatric: ABSENT: anxiety, depression, homidical ideation, suicidal ideation Endocrine: ABSENT: cold intolerance, heat intolerance, menstrual abnormalities, polydipsia, polyuria Hematologic/Lymphatic: ABSENT: easy bleeding, easy bruising, lymphadenopathy Physical Exam Vital Signs: Temp Pulse Resp BP Pulse Ox 97.8 F 87 18 120/62 100 09/29/17 12:00 09/29/17 14:00 09/29/17 12:00 09/29/17 13:15 09/29/17 12:00 Intake & Output 09/28/17 09/29/17 09/30/17 06:59 06:59 06:59 Intake Total 200 Output Total 300 Balance -100 Weight 42.4 kg General appearance: PRESENT: no acute distress Head exam: PRESENT: atraumatic, normocephalic Eye exam: PRESENT: conjunctiva pink, EOMI, PERRLA Ear exam: PRESENT: normal external ear exam Mouth exam: PRESENT: moist, tongue midline Neck exam: PRESENT: full ROM Respiratory exam: PRESENT: decreased breath sounds Cardiovascular exam: PRESENT: RRR, +S1, +S2 Pulses: PRESENT: normal dorsalis pedis pul, +2 pedal pulses bilateral Vascular exam: PRESENT: normal capillary refill GI/Abdominal exam: PRESENT: normal bowel sounds, soft Rectal exam: PRESENT: deferred Neurological exam: PRESENT: alert, awake, oriented to person, oriented to place , oriented to time, oriented to situation, CN II-XII grossly intact Psychiatric exam: PRESENT: appropriate affect, normal mood Skin exam: PRESENT: dry, intact, warm Results Laboratory Results: 09/29/17 14:18 09/29/17 09/29/17 14:18 15:25 WBC 18.3 H RBC 2.72 L Hgb 8.4 L Hct 26.5 L MCV 97 MCH 30.8 MCHC 31.7 L RDW 17.4 H Plt Count 357 Carbonic Acid 1.14 HCO3/H2CO3 Ratio 16:1 ABG pH 7.31 L ABG pCO2 37.8 ABG pO2 103.9 H ABG HCO3 18.7 L ABG O2 Saturation 97.3 ABG Base Excess -6.9 FiO2 24% Impressions: Chest X-Ray 09/28/17 22:31 IMPRESSION: STABLE APPEARANCE OF THE CHEST INCLUDING UNDERLYING EMPHYSEMA AND SMALL BILATERAL PLEURAL EFFUSIONS. Chest CT 09/29/17 00:00 IMPRESSION: INTERVAL DEVELOPMENT OF PATCHY MULTIFOCAL AIRSPACE DISEASE COMPATIBLE WITH PNEUMONIA. CORRELATE WITH FEVER/ ELEVATED WHITE BLOOD CELL COUNT. NO PULMONARY EMBOLI OR ACUTE AORTIC INJURY. STABLE SMALL/TRACE BILATERAL PLEURAL EFFUSIONS. Assessment & Plan - Diagnosis (1) Multifocal pneumonia Is this a current diagnosis for this admission?: Yes Plan: She be treated with IV antibiotic, cefepime and aspirin (2) Metabolic acidosis with respiratory acidosis Is this a current diagnosis for this admission?: Yes (3) Warfarin-induced coagulopathy Is this a current diagnosis for this admission?: Yes (4) Atrial fibrillation Qualifiers: Atrial fibrillation type: chronic Qualified Code(s): I48.2 - Chronic atrial fibrillation Is this a current diagnosis for this admission?: Yes (5) Acute and chronic respiratory failure ([id number]) Qualifiers: Respiratory failure complication: hypercapnia Qualified Code(s): J96.22 - Acute and chronic respiratory failure with hypercapnia Is this a current diagnosis for this admission?: Yes (6) COPD (chronic obstructive pulmonary disease) Qualifiers: COPD type: unspecified COPD Qualified Code(s): J44.9 - Chronic obstructive pulmonary disease, unspecified Is this a current diagnosis for this admission?: Yes
[2017-09-29] MEDS: CEFEPIME 2 GM/D5W RTU 2 GM/50 ML RTUPB IV SCH (17:00)
[2017-09-29] MEDS ORDERED: (PENDING PHARMACY ID) (Warfarin Sodium 3 MG) PO SCH (18:00)
[2017-09-29 18:14] LABS: HEMATOCRIT 26.5 % (36.0-47.0); HEMOGLOBIN 8.3 g/dL (12.0-15.5); MEAN CORPUSCULAR HEMOGLOBIN 30.9 pg (27.0-33.4); MEAN CORPUSCULAR HGB CONC 31.3 g/dL (32.0-36.0); MEAN CORPUSCULAR VOLUME 99 fl (80-97); PLATELET COUNT 354 10^3/uL (150-450); RED BLOOD COUNT 2.69 10^6/uL (3.72-5.28); RED CELL DISTRIBUTION WIDTH 17.9 % (11.5-14.0)
[2017-09-29 19:06] LABS: PARTIAL THROMBOPLASTIN TIME 99.5 SEC (23.5-35.8)
[2017-09-29 19:24] LABS: INTERNATIONAL RATION (INR) 6.55; PROTHROMBIN TIME 59.7 SEC (11.4-15.4)
[2017-09-29] MEDS: ACETAMINOPHEN 325 MG TABLET PO PRN (21:18)
[2017-09-29] MEDS: LEVOFLOXACIN 750 MG/D5W RTU 750 MG/150 ML RTUPB IV SCH (21:18)
[2017-09-29] MEDS: ATORVASTATIN CALCIUM 40 MG TABLET PO SCH (21:18)
[2017-09-29] MEDS: LATANOPROST 0.005% OPH SOLN 2.5 ML OU SCH (21:37)
[2017-09-29] MEDS ORDERED: WARFARIN SODIUM 3 MG TABLET PO SCH (22:00)
[2017-09-30] MEDS: NORMAL SALINE 1000 ML 1,000 ML IV PRN ×2 (04:22→15:18)
[2017-09-30] MEDS: CEFEPIME 2 GM/D5W RTU 2 GM/50 ML RTUPB IV SCH ×2 (05:35→17:54)
[2017-09-30 08:09] LABS: PROTHROMBIN TIME 55.4 SEC (11.4-15.4)
[2017-09-30 08:11] LABS: INTERNATIONAL RATION (INR) 6.02
[2017-09-30] MEDS: BUDESONIDE/FORMOTEROL 160-4.5 MCG 60 PUFF/6 GM MDI IH SCH ×2 (09:46→17:53)
[2017-09-30] MEDS: TIOTROPIUM BROMIDE DPI 5 CAP/KIT (18 MCG/CAP) IH SCH (09:46)
[2017-09-30] MEDS: VALSARTAN 40 MG TABLET PO SCH (09:47)
[2017-09-30] MEDS: CALCIUM CARBONATE 250 MG/VITAMIN D3 125 UNIT TABLET PO SCH (09:47)
[2017-09-30] MEDS: ACETAZOLAMIDE 500 MG CAPSULE.SA PO SCH (09:47)
[2017-09-30] MEDS: DILTIAZEM HCL 120 MG CAP.SR.24H PO SCH (09:49)
[2017-09-30] MEDS: METOPROLOL SUCCINATE 25 MG TAB.SR.24H PO SCH (09:49)
[2017-09-30] MEDS: LANSOPRAZOLE 30 MG TAB.RAP.DR PO SCH (09:49)
[2017-09-30] MEDS: MULTIVITAMIN TABLET PO SCH (09:49)
[2017-09-30] MEDS: CITALOPRAM HYDROBROMIDE 20 MG TABLET PO SCH (09:49)
[2017-09-30 13:13] LABS: HEMATOCRIT 26.1 % (36.0-47.0); HEMOGLOBIN 8.2 g/dL (12.0-15.5); MEAN CORPUSCULAR HEMOGLOBIN 30.8 pg (27.0-33.4); MEAN CORPUSCULAR HGB CONC 31.3 g/dL (32.0-36.0); MEAN CORPUSCULAR VOLUME 99 fl (80-97); PLATELET COUNT 357 10^3/uL (150-450); RED BLOOD COUNT 2.65 10^6/uL (3.72-5.28); WHITE BLOOD COUNT 23.4 10^3/uL (4.0-10.5)
[2017-09-30 13:22] LABS: ALANINE AMINOTRANSFERASE 22 U/L (9-52); ALBUMIN 2.7 g/dL (3.5-5.0); ALKALINE PHOSPHATASE 88 U/L (38-126); ANION GAP 9 (5-19); ASPARTATE AMINO TRANSFERASE 19 U/L (14-36); BILIRUBIN,DIRECT 0.3 mg/dL (0.0-0.4); BILIRUBIN,TOTAL 0.3 mg/dL (0.2-1.3); BLOOD UREA NITROGEN 20 mg/dL (7-20); CALCIUM 9.8 mg/dL (8.4-10.2); CARBON DIOXIDE 24 mmol/L (22-30); CHLORIDE 110 mmol/L (98-107); GLUCOSE 143 mg/dL (75-110); SODIUM 143.1 mmol/L (137-145); TOTAL PROTEIN 5.2 g/dL (6.3-8.2)
[2017-09-30 13:29] LABS: ABSOLUTE LYMPHOCYTES# (MANUAL) 0.9 10^3/uL (0.5-4.7); ABSOLUTE MONOCYTES # (MANUAL) 1.2 10^3/uL (0.1-1.4); ABSOLUTE NEUTROPHILS# (MANUAL) 21.3 10^3/uL (1.7-8.2); BAND NEUTROPHILS % (MANUAL) 3 % (3-5); BASOPHILS % (MANUAL) 0 % (0-2); EOSINOPHILS % (MANUAL) 0 % (0-6); LYMPHOCYTES % (MANUAL) 4 % (13-45); MONOCYTES % (MANUAL) 5 % (3-13); SEGMENTED NEUTROPHILS % (MAN) 87 % (42-78); TOTAL CELLS COUNTED 100
[2017-09-30 13:30] LABS: ANISOCYTOSIS 1+; HYPOCHROMASIA SLIGHT; PLATELET COMMENT ADEQUATE
[2017-09-30 13:31] LABS: MYELOCYTES % (MANUAL) 1 % (0)
--- NOTE | 2017-09-30 14:05 | PDOC PROGRESS REPORT ---
Subjective Progress Note for:: 09/30/17 Subjective:: Patient was admitted yesterday for the management of pneumonia. The PT/INR is elevated but there is no bleeding Reason For Visit: SEVERE MULTIFOCAL PNEUMONIA, AFIB, COPD Physical Exam Vital Signs: Temp Pulse Resp BP Pulse Ox 97.9 F 77 18 96/52 L 97 09/30/17 12:58 09/30/17 12:58 09/30/17 12:58 09/30/17 12:58 09/30/17 12:58 Intake & Output 09/29/17 09/30/17 10/01/17 06:59 06:59 06:59 Intake Total 1591 150 Output Total 300 250 Balance 1291 -100 Weight 43.9 kg General appearance: PRESENT: mild distress Head exam: PRESENT: atraumatic, normocephalic Eye exam: PRESENT: PERRLA Ear exam: PRESENT: normal external ear exam Mouth exam: PRESENT: moist, tongue midline Neck exam: PRESENT: full ROM Respiratory exam: PRESENT: wheezes Cardiovascular exam: PRESENT: RRR, +S1, +S2 Vascular exam: PRESENT: normal capillary refill GI/Abdominal exam: PRESENT: normal bowel sounds, soft Rectal exam: PRESENT: deferred Neurological exam: PRESENT: alert, awake, oriented to person, oriented to place , oriented to time, oriented to situation, CN II-XII grossly intact Psychiatric exam: PRESENT: appropriate affect, normal mood Skin exam: PRESENT: dry, intact, warm Results Laboratory Results: 09/30/17 12:40 09/30/17 12:40 09/29/17 09/29/17 09/29/17 16:15 16:15 16:15 WBC 20.0 H RBC 2.69 L Hgb 8.3 L Hct 26.5 L MCV 99 H MCH 30.9 MCHC 31.3 L RDW 17.9 H Plt Count 354 Seg Neutrophils % Lymphocytes % Monocytes % Eosinophils % Basophils % Absolute Neutrophils Absolute Lymphocytes Absolute Monocytes Absolute Eosinophils Absolute Basophils Sodium Potassium Chloride Carbon Dioxide Anion Gap BUN Creatinine 0.78 Est GFR ( Amer) > 60 Est GFR (Non-Af Amer) > 60 Glucose Lactic Acid 2.4 H Calcium Total Bilirubin AST ALT Alkaline Phosphatase Total Protein Albumin 09/29/17 09/30/17 09/30/17 21:40 12:40 12:40 WBC 23.4 H RBC 2.65 L Hgb 8.2 L Hct 26.1 L MCV 99 H MCH 30.8 MCHC 31.3 L RDW 18.0 H Plt Count 357 Seg Neutrophils % Not Reportable Lymphocytes % Not Reportable Monocytes % Not Reportable Eosinophils % Not Reportable Basophils % Not Reportable Absolute Neutrophils Not Reportable Absolute Lymphocytes Not Reportable Absolute Monocytes Not Reportable Absolute Eosinophils Not Reportable Absolute Basophils Not Reportable Sodium 143.1 Potassium 4.0 Chloride 110 H Carbon Dioxide 24 Anion Gap 9 BUN 20 Creatinine 0.75 Est GFR ( Amer) > 60 Est GFR (Non-Af Amer) > 60 Glucose 143 H Lactic Acid 2.1 Calcium 9.8 Total Bilirubin 0.3 AST 19 ALT 22 Alkaline Phosphatase 88 Total Protein 5.2 L Albumin 2.7 L Impressions: Chest X-Ray 09/28/17 22:31 IMPRESSION: STABLE APPEARANCE OF THE CHEST INCLUDING UNDERLYING EMPHYSEMA AND SMALL BILATERAL PLEURAL EFFUSIONS. Chest CT 09/29/17 00:00 IMPRESSION: INTERVAL DEVELOPMENT OF PATCHY MULTIFOCAL AIRSPACE DISEASE COMPATIBLE WITH PNEUMONIA. CORRELATE WITH FEVER/ ELEVATED WHITE BLOOD CELL COUNT. NO PULMONARY EMBOLI OR ACUTE AORTIC INJURY. STABLE SMALL/TRACE BILATERAL PLEURAL EFFUSIONS. Assessment & Plan - Diagnosis (1) Multifocal pneumonia Is this a current diagnosis for this admission?: Yes (2) Metabolic acidosis with respiratory acidosis Is this a current diagnosis for this admission?: Yes (3) Warfarin-induced coagulopathy Is this a current diagnosis for this admission?: Yes (4) Atrial fibrillation Qualifiers: Atrial fibrillation type: chronic Qualified Code(s): I48.2 - Chronic atrial fibrillation Is this a current diagnosis for this admission?: Yes (5) Acute and chronic respiratory failure ([id number]) Qualifiers: Respiratory failure complication: hypercapnia Qualified Code(s): J96.22 - Acute and chronic respiratory failure with hypercapnia Is this a current diagnosis for this admission?: Yes (6) COPD (chronic obstructive pulmonary disease) Qualifiers: COPD type: unspecified COPD Qualified Code(s): J44.9 - Chronic obstructive pulmonary disease, unspecified Is this a current diagnosis for this admission?: Yes - Plan Summary Plan Summary: She will continue IV antibiotic, and other medication
[2017-09-30] MEDS: ACETAMINOPHEN 325 MG TABLET PO PRN (18:20)
[2017-09-30] MEDS: ATORVASTATIN CALCIUM 40 MG TABLET PO SCH (21:39)
[2017-09-30] MEDS: LEVOFLOXACIN 750 MG/D5W RTU 750 MG/150 ML RTUPB IV SCH (21:40)
[2017-09-30] MEDS: LATANOPROST 0.005% OPH SOLN 2.5 ML OU SCH (21:41)
[2017-10-01] MEDS: NORMAL SALINE 1000 ML 1,000 ML IV PRN ×2 (02:29→14:09)
[2017-10-01] MEDS: CEFEPIME 2 GM/D5W RTU 2 GM/50 ML RTUPB IV SCH (05:23)
[2017-10-01 06:17] LABS: ALANINE AMINOTRANSFERASE 31 U/L (9-52); ALBUMIN 2.9 g/dL (3.5-5.0); ALKALINE PHOSPHATASE 102 U/L (38-126); ANION GAP 5 (5-19); ASPARTATE AMINO TRANSFERASE 38 U/L (14-36); BILIRUBIN,DIRECT 0.2 mg/dL (0.0-0.4); BILIRUBIN,TOTAL 0.2 mg/dL (0.2-1.3); BLOOD UREA NITROGEN 22 mg/dL (7-20); CALCIUM 9.7 mg/dL (8.4-10.2); CARBON DIOXIDE 28 mmol/L (22-30); CHLORIDE 112 mmol/L (98-107); GLUCOSE 91 mg/dL (75-110); POTASSIUM 4.1 mmol/L (3.6-5.0); SODIUM 145.3 mmol/L (137-145); TOTAL PROTEIN 5.8 g/dL (6.3-8.2)
[2017-10-01 06:33] LABS: HEMATOCRIT 27.4 % (36.0-47.0); MEAN CORPUSCULAR HEMOGLOBIN 31.9 pg (27.0-33.4); MEAN CORPUSCULAR HGB CONC 33.1 g/dL (32.0-36.0); MEAN CORPUSCULAR VOLUME 97 fl (80-97); PLATELET COUNT 394 10^3/uL (150-450); RED BLOOD COUNT 2.83 10^6/uL (3.72-5.28); WHITE BLOOD COUNT 19.3 10^3/uL (4.0-10.5)
[2017-10-01 06:37] LABS: INTERNATIONAL RATION (INR) 3.28; PROTHROMBIN TIME 34.9 SEC (11.4-15.4)
[2017-10-01 06:57] LABS: ABSOLUTE LYMPHOCYTES# (MANUAL) 1.7 10^3/uL (0.5-4.7); ABSOLUTE MONOCYTES # (MANUAL) 1.2 10^3/uL (0.1-1.4); ABSOLUTE NEUTROPHILS# (MANUAL) 16.2 10^3/uL (1.7-8.2); BAND NEUTROPHILS % (MANUAL) 2 % (3-5); BASOPHILS % (MANUAL) 0 % (0-2); EOSINOPHILS % (MANUAL) 1 % (0-6); LYMPHOCYTES % (MANUAL) 9 % (13-45); METAMYELOCYTES % (MANUAL) 2 % (0); MONOCYTES % (MANUAL) 6 % (3-13); SEGMENTED NEUTROPHILS % (MAN) 80 % (42-78); TOTAL CELLS COUNTED 100
[2017-10-01 07:00] LABS: ANISOCYTOSIS 1+; HYPOCHROMASIA SLIGHT; OVALOCYTES SLIGHT; PLATELET COMMENT ADEQUATE; POIKILOCYTOSIS SLIGHT; POLYCHROMASIA SLIGHT; SCHISTOCYTES SLIGHT; TOXIC GRANULATION SLIGHT
[2017-10-01] MEDS: DILTIAZEM HCL 120 MG CAP.SR.24H PO SCH (10:16)
[2017-10-01] MEDS: MULTIVITAMIN TABLET PO SCH (10:16)
[2017-10-01] MEDS: LANSOPRAZOLE 30 MG TAB.RAP.DR PO SCH (10:16)
[2017-10-01] MEDS: METOPROLOL SUCCINATE 25 MG TAB.SR.24H PO SCH (10:17)
[2017-10-01] MEDS: CITALOPRAM HYDROBROMIDE 20 MG TABLET PO SCH (10:17)
[2017-10-01] MEDS: CALCIUM CARBONATE 250 MG/VITAMIN D3 125 UNIT TABLET PO SCH (10:17)
[2017-10-01] MEDS: VALSARTAN 40 MG TABLET PO SCH (10:19)
[2017-10-01] MEDS: TIOTROPIUM BROMIDE DPI 5 CAP/KIT (18 MCG/CAP) IH SCH (10:19)
[2017-10-01] MEDS: BUDESONIDE/FORMOTEROL 160-4.5 MCG 60 PUFF/6 GM MDI IH SCH ×2 (10:19→18:15)
[2017-10-01] MEDS: ACETAZOLAMIDE 500 MG CAPSULE.SA PO SCH (10:23)
[2017-10-01 10:43] LABS: APPEARANCE,URINE SLIGHTLY-CLOUDY; BILIRUBIN,URINE NEGATIVE (NEGATIVE); COLOR,URINE STRAW; GLUCOSE, URINE NEGATIVE (NEGATIVE); KETONES,URINE NEGATIVE (NEGATIVE); LEUKOCYTE ESTERASE,URINE NEGATIVE (NEGATIVE); NITRITE,URINE NEGATIVE (NEGATIVE); PROTEIN,URINE NEGATIVE (NEGATIVE); URINE SPECIFIC GRAVITY 1.012; UROBILINOGEN,URINE NEGATIVE mg/dL (<2.0)
--- NOTE | 2017-10-01 12:49 | PDOC PROGRESS REPORT ---
Subjective Progress Note for:: 10/01/17 Subjective:: She was seen by the bedside Reason For Visit: SEVERE MULTIFOCAL PNEUMONIA, AFIB, COPD Physical Exam Vital Signs: Temp Pulse Resp BP Pulse Ox 98.3 F 102 H 20 99/48 L 92 10/01/17 07:55 10/01/17 07:55 10/01/17 07:55 10/01/17 07:55 10/01/17 07:55 Intake & Output 09/30/17 10/01/17 10/02/17 06:59 06:59 06:59 Intake Total 1591 3264 Output Total 300 400 Balance 1291 2864 Weight 43.9 kg 45.4 kg General appearance: PRESENT: thin Head exam: PRESENT: atraumatic, normocephalic Neck exam: PRESENT: full ROM Respiratory exam: PRESENT: wheezes Cardiovascular exam: PRESENT: RRR, +S1, +S2 Vascular exam: PRESENT: normal capillary refill GI/Abdominal exam: PRESENT: normal bowel sounds, soft Rectal exam: PRESENT: deferred Neurological exam: PRESENT: alert Skin exam: PRESENT: dry, intact, warm. ABSENT: cyanosis, rash Results Laboratory Results: 10/01/17 05:27 10/01/17 05:27 09/30/17 09/30/17 10/01/17 12:40 12:40 05:27 WBC 23.4 H 19.3 H RBC 2.65 L 2.83 L Hgb 8.2 L 9.0 L Hct 26.1 L 27.4 L MCV 99 H 97 MCH 30.8 31.9 MCHC 31.3 L 33.1 RDW 18.0 H 18.0 H Plt Count 357 394 Seg Neutrophils % Not Reportable Not Reportable Lymphocytes % Not Reportable Not Reportable Monocytes % Not Reportable Not Reportable Eosinophils % Not Reportable Not Reportable Basophils % Not Reportable Not Reportable Absolute Neutrophils Not Reportable Not Reportable Absolute Lymphocytes Not Reportable Not Reportable Absolute Monocytes Not Reportable Not Reportable Absolute Eosinophils Not Reportable Not Reportable Absolute Basophils Not Reportable Not Reportable Sodium 143.1 Potassium 4.0 Chloride 110 H Carbon Dioxide 24 Anion Gap 9 BUN 20 Creatinine 0.75 Est GFR ( Amer) > 60 Est GFR (Non-Af Amer) > 60 Glucose 143 H Calcium 9.8 Total Bilirubin 0.3 AST 19 ALT 22 Alkaline Phosphatase 88 Total Protein 5.2 L Albumin 2.7 L Urine Color Urine Appearance Urine pH Ur Specific [place] Urine Protein Urine Glucose (UA) Urine Ketones Urine Blood Urine Nitrite Ur Leukocyte Esterase Urine WBC (Auto) Urine RBC (Auto) Stool Occult Blood 10/01/17 10/01/17 10/01/17 05:27 09:45 09:45 WBC RBC Hgb Hct MCV MCH MCHC RDW Plt Count Seg Neutrophils % Lymphocytes % Monocytes % Eosinophils % Basophils % Absolute Neutrophils Absolute Lymphocytes Absolute Monocytes Absolute Eosinophils Absolute Basophils Sodium 145.3 H Potassium 4.1 Chloride 112 H Carbon Dioxide 28 Anion Gap 5 BUN 22 H Creatinine 0.85 Est GFR ( Amer) > 60 Est GFR (Non-Af Amer) > 60 Glucose 91 Calcium 9.7 Total Bilirubin 0.2 AST 38 H ALT 31 Alkaline Phosphatase 102 Total Protein 5.8 L Albumin 2.9 L Urine Color STRAW Urine Appearance SLIGHTLY-CLOUDY Urine pH 6.0 Ur Specific [place] 1.012 Urine Protein NEGATIVE Urine Glucose (UA) NEGATIVE Urine Ketones NEGATIVE Urine Blood NEGATIVE Urine Nitrite NEGATIVE Ur Leukocyte Esterase NEGATIVE Urine WBC (Auto) 3 Urine RBC (Auto) 2 Stool Occult Blood NEGATIVE Impressions: Chest X-Ray 09/28/17 22:31 IMPRESSION: STABLE APPEARANCE OF THE CHEST INCLUDING UNDERLYING EMPHYSEMA AND SMALL BILATERAL PLEURAL EFFUSIONS. Chest CT 09/29/17 00:00 IMPRESSION: INTERVAL DEVELOPMENT OF PATCHY MULTIFOCAL AIRSPACE DISEASE COMPATIBLE WITH PNEUMONIA. CORRELATE WITH FEVER/ ELEVATED WHITE BLOOD CELL COUNT. NO PULMONARY EMBOLI OR ACUTE AORTIC INJURY. STABLE SMALL/TRACE BILATERAL PLEURAL EFFUSIONS. Assessment & Plan - Diagnosis (1) Multifocal pneumonia Is this a current diagnosis for this admission?: Yes (2) Metabolic acidosis with respiratory acidosis Is this a current diagnosis for this admission?: Yes (3) Warfarin-induced coagulopathy Is this a current diagnosis for this admission?: Yes (4) Atrial fibrillation Qualifiers: Atrial fibrillation type: chronic Qualified Code(s): I48.2 - Chronic atrial fibrillation Is this a current diagnosis for this admission?: Yes (5) Acute and chronic respiratory failure ([id number]) Qualifiers: Respiratory failure complication: hypercapnia Qualified Code(s): J96.22 - Acute and chronic respiratory failure with hypercapnia Is this a current diagnosis for this admission?: Yes (6) COPD (chronic obstructive pulmonary disease) Qualifiers: COPD type: unspecified COPD Qualified Code(s): J44.9 - Chronic obstructive pulmonary disease, unspecified Is this a current diagnosis for this admission?: Yes - Plan Summary Plan Summary: Continue IV antibiotic
[2017-10-01] MEDS: ACETAMINOPHEN 325 MG TABLET PO PRN (14:10)
[2017-10-01] MEDS: CEFEPIME HCL 2 GM in DEXTROSE 5%-WATER 50 ML IV SCH (18:14)
[2017-10-01] MEDS: LEVOFLOXACIN 750 MG/D5W RTU 750 MG/150 ML RTUPB IV SCH (21:33)
[2017-10-01] MEDS: LATANOPROST 0.005% OPH SOLN 2.5 ML OU SCH (21:33)
[2017-10-01] MEDS: ATORVASTATIN CALCIUM 40 MG TABLET PO SCH (21:33)
[2017-10-02] MEDS: ACETAMINOPHEN 325 MG TABLET PO PRN ×2 (00:45→15:27)
[2017-10-02] MEDS: NORMAL SALINE 1000 ML 1,000 ML IV PRN (02:36)
[2017-10-02] MEDS: CEFEPIME HCL 2 GM in DEXTROSE 5%-WATER 50 ML IV SCH ×2 (05:24→18:02)
[2017-10-02 06:14] LABS: INTERNATIONAL RATION (INR) 1.93; PROTHROMBIN TIME 23.1 SEC (11.4-15.4)
[2017-10-02] MEDS: ACETAZOLAMIDE 500 MG CAPSULE.SA PO SCH (09:48)
[2017-10-02] MEDS: METOPROLOL SUCCINATE 25 MG TAB.SR.24H PO SCH (09:49)
[2017-10-02] MEDS: CALCIUM CARBONATE 250 MG/VITAMIN D3 125 UNIT TABLET PO SCH (09:49)
[2017-10-02] MEDS: CITALOPRAM HYDROBROMIDE 20 MG TABLET PO SCH (09:50)
[2017-10-02] MEDS: DILTIAZEM HCL 120 MG CAP.SR.24H PO SCH (09:50)
[2017-10-02] MEDS: MULTIVITAMIN TABLET PO SCH (09:50)
[2017-10-02] MEDS: LANSOPRAZOLE 30 MG TAB.RAP.DR PO SCH (09:50)
[2017-10-02] MEDS: BUDESONIDE/FORMOTEROL 160-4.5 MCG 60 PUFF/6 GM MDI IH SCH ×2 (09:51→18:01)
[2017-10-02 11:01] LABS: PATH REVIEW PATHOLOGIST REVIEWED
[2017-10-02] MEDS: VALSARTAN 40 MG TABLET PO SCH (12:14)
[2017-10-02] MEDS: TIOTROPIUM BROMIDE DPI 5 CAP/KIT (18 MCG/CAP) IH SCH (12:15)
--- NOTE | 2017-10-02 14:38 | PDOC PROGRESS REPORT ---
Subjective Progress Note for:: 10/02/17 Subjective:: She was seen by the bedside, she is still short of breath, admitted for management of bilateral pneumonia Reason For Visit: SEVERE MULTIFOCAL PNEUMONIA, AFIB, COPD Physical Exam Vital Signs: Temp Pulse Resp BP Pulse Ox 98.4 F 88 18 125/62 99 10/02/17 11:58 10/02/17 11:58 10/02/17 11:58 10/02/17 11:58 10/02/17 11:58 Intake & Output 10/01/17 10/02/17 10/03/17 06:59 06:59 06:59 Intake Total 3264 3337 Output Total 400 500 Balance 2864 2837 Weight 45.4 kg 40.3 kg General appearance: PRESENT: no acute distress, thin Head exam: PRESENT: atraumatic, normocephalic Eye exam: PRESENT: PERRLA Neck exam: PRESENT: full ROM Cardiovascular exam: PRESENT: RRR, +S1, +S2 Vascular exam: PRESENT: normal capillary refill GI/Abdominal exam: PRESENT: normal bowel sounds, soft Rectal exam: PRESENT: deferred Neurological exam: PRESENT: alert Psychiatric exam: PRESENT: appropriate affect, normal mood Skin exam: PRESENT: dry, intact, warm Results Laboratory Results: 10/01/17 05:27 10/01/17 05:27 Impressions: Chest X-Ray 09/28/17 22:31 IMPRESSION: STABLE APPEARANCE OF THE CHEST INCLUDING UNDERLYING EMPHYSEMA AND SMALL BILATERAL PLEURAL EFFUSIONS. Chest CT 09/29/17 00:00 IMPRESSION: INTERVAL DEVELOPMENT OF PATCHY MULTIFOCAL AIRSPACE DISEASE COMPATIBLE WITH PNEUMONIA. CORRELATE WITH FEVER/ ELEVATED WHITE BLOOD CELL COUNT. NO PULMONARY EMBOLI OR ACUTE AORTIC INJURY. STABLE SMALL/TRACE BILATERAL PLEURAL EFFUSIONS. Assessment & Plan - Diagnosis (1) Multifocal pneumonia Is this a current diagnosis for this admission?: Yes (2) Metabolic acidosis with respiratory acidosis Is this a current diagnosis for this admission?: Yes (3) Warfarin-induced coagulopathy Is this a current diagnosis for this admission?: Yes (4) Atrial fibrillation Qualifiers: Atrial fibrillation type: chronic Qualified Code(s): I48.2 - Chronic atrial fibrillation Is this a current diagnosis for this admission?: Yes (5) Acute and chronic respiratory failure ([id number]) Qualifiers: Respiratory failure complication: hypercapnia Qualified Code(s): J96.22 - Acute and chronic respiratory failure with hypercapnia Is this a current diagnosis for this admission?: Yes (6) COPD (chronic obstructive pulmonary disease) Qualifiers: COPD type: unspecified COPD Qualified Code(s): J44.9 - Chronic obstructive pulmonary disease, unspecified Is this a current diagnosis for this admission?: Yes - Plan Summary Plan Summary: She will continue IV antibiotic
[2017-10-02 14:42] LABS: HEMATOCRIT 29.6 % (36.0-47.0); HEMOGLOBIN 9.2 g/dL (12.0-15.5); MEAN CORPUSCULAR HEMOGLOBIN 30.9 pg (27.0-33.4); MEAN CORPUSCULAR HGB CONC 31.1 g/dL (32.0-36.0); MEAN CORPUSCULAR VOLUME 99 fl (80-97); PLATELET COUNT 388 10^3/uL (150-450); RED BLOOD COUNT 2.98 10^6/uL (3.72-5.28); RED CELL DISTRIBUTION WIDTH 18.5 % (11.5-14.0); WHITE BLOOD COUNT 16.5 10^3/uL (4.0-10.5)
[2017-10-02 14:49] LABS: ALANINE AMINOTRANSFERASE 30 U/L (9-52); ALBUMIN 2.5 g/dL (3.5-5.0); ALKALINE PHOSPHATASE 75 U/L (38-126); ANION GAP 8 (5-19); ASPARTATE AMINO TRANSFERASE 18 U/L (14-36); BILIRUBIN,DIRECT 0.2 mg/dL (0.0-0.4); BILIRUBIN,TOTAL 0.4 mg/dL (0.2-1.3); BLOOD UREA NITROGEN 17 mg/dL (7-20); CALCIUM 9.6 mg/dL (8.4-10.2); CARBON DIOXIDE 25 mmol/L (22-30); CHLORIDE 110 mmol/L (98-107); GLUCOSE 89 mg/dL (75-110); POTASSIUM 3.9 mmol/L (3.6-5.0)
[2017-10-02 15:09] LABS: ABSOLUTE LYMPHOCYTES# (MANUAL) 2.1 10^3/uL (0.5-4.7); ABSOLUTE MONOCYTES # (MANUAL) 0.8 10^3/uL (0.1-1.4); ABSOLUTE NEUTROPHILS# (MANUAL) 13.5 10^3/uL (1.7-8.2); BAND NEUTROPHILS % (MANUAL) 4 % (3-5); BASOPHILS % (MANUAL) 0 % (0-2); EOSINOPHILS % (MANUAL) 0 % (0-6); LYMPHOCYTES % (MANUAL) 12 % (13-45); METAMYELOCYTES % (MANUAL) 6 % (0); MONOCYTES % (MANUAL) 5 % (3-13); SEGMENTED NEUTROPHILS % (MAN) 66 % (42-78); TOTAL CELLS COUNTED 100
[2017-10-02 15:10] LABS: MYELOCYTES % (MANUAL) 6 % (0); TOXIC GRANULATION 1+
[2017-10-02 15:11] LABS: ANISOCYTOSIS 2+
[2017-10-02 15:12] LABS: OVALOCYTES 1+; PLATELET COMMENT ADEQUATE; POIKILOCYTOSIS 1+; POLYCHROMASIA SLIGHT; ROULEAUX SLIGHT
[2017-10-02] MEDS: ATORVASTATIN CALCIUM 40 MG TABLET PO SCH (21:08)
[2017-10-02] MEDS: LEVOFLOXACIN 750 MG/D5W RTU 750 MG/150 ML RTUPB IV SCH (21:08)
[2017-10-02] MEDS: WARFARIN SODIUM 2 MG TABLET PO SCH (21:09)
[2017-10-02] MEDS: LATANOPROST 0.005% OPH SOLN 2.5 ML OU SCH (21:43)
[2017-10-03] MEDS: CEFEPIME HCL 2 GM in DEXTROSE 5%-WATER 50 ML IV SCH ×2 (05:07→17:09)
[2017-10-03 05:58] LABS: HEMATOCRIT 27.9 % (36.0-47.0); MEAN CORPUSCULAR HEMOGLOBIN 31.1 pg (27.0-33.4); MEAN CORPUSCULAR HGB CONC 32.2 g/dL (32.0-36.0); MEAN CORPUSCULAR VOLUME 97 fl (80-97); PLATELET COUNT 379 10^3/uL (150-450); RED BLOOD COUNT 2.89 10^6/uL (3.72-5.28); RED CELL DISTRIBUTION WIDTH 17.9 % (11.5-14.0); WHITE BLOOD COUNT 17.3 10^3/uL (4.0-10.5)
[2017-10-03 06:20] LABS: ALANINE AMINOTRANSFERASE 28 U/L (9-52); ALBUMIN 2.7 g/dL (3.5-5.0); ALKALINE PHOSPHATASE 72 U/L (38-126); ANION GAP 7 (5-19); ASPARTATE AMINO TRANSFERASE 17 U/L (14-36); BILIRUBIN,DIRECT 0.2 mg/dL (0.0-0.4); BILIRUBIN,TOTAL 0.3 mg/dL (0.2-1.3); BLOOD UREA NITROGEN 15 mg/dL (7-20); CALCIUM 9.2 mg/dL (8.4-10.2); CARBON DIOXIDE 28 mmol/L (22-30); CHLORIDE 107 mmol/L (98-107); GLUCOSE 115 mg/dL (75-110); POTASSIUM 3.8 mmol/L (3.6-5.0); SODIUM 142.1 mmol/L (137-145); TOTAL PROTEIN 5.2 g/dL (6.3-8.2)
[2017-10-03 06:26] LABS: ABSOLUTE LYMPHOCYTES# (MANUAL) 1.9 10^3/uL (0.5-4.7); ABSOLUTE MONOCYTES # (MANUAL) 0.3 10^3/uL (0.1-1.4); ABSOLUTE NEUTROPHILS# (MANUAL) 15.1 10^3/uL (1.7-8.2); BAND NEUTROPHILS % (MANUAL) 2 % (3-5); BASOPHILS % (MANUAL) 0 % (0-2); EOSINOPHILS % (MANUAL) 0 % (0-6); LYMPHOCYTES % (MANUAL) 11 % (13-45); METAMYELOCYTES % (MANUAL) 3 % (0); MONOCYTES % (MANUAL) 2 % (3-13); MYELOCYTES % (MANUAL) 2 % (0); NUCLEATED RED BLOOD CELLS 1 /100 WBC (0); SEGMENTED NEUTROPHILS % (MAN) 80 % (42-78); TOTAL CELLS COUNTED 100
[2017-10-03 06:28] LABS: ANISOCYTOSIS 1+; OVALOCYTES SLIGHT; POIKILOCYTOSIS SLIGHT; POLYCHROMASIA SLIGHT; SCHISTOCYTES SLIGHT; TOXIC GRANULATION SLIGHT
[2017-10-03 06:29] LABS: PLATELET COMMENT ADEQUATE
[2017-10-03] MEDS: VALSARTAN 40 MG TABLET PO SCH (11:13)
[2017-10-03] MEDS: CITALOPRAM HYDROBROMIDE 20 MG TABLET PO SCH (11:13)
[2017-10-03] MEDS: LANSOPRAZOLE 30 MG TAB.RAP.DR PO SCH (11:14)
[2017-10-03] MEDS: MULTIVITAMIN TABLET PO SCH (11:14)
[2017-10-03] MEDS: DILTIAZEM HCL 120 MG CAP.SR.24H PO SCH (11:14)
[2017-10-03] MEDS: METOPROLOL SUCCINATE 25 MG TAB.SR.24H PO SCH (11:14)
[2017-10-03] MEDS: CALCIUM CARBONATE 250 MG/VITAMIN D3 125 UNIT TABLET PO SCH (11:15)
[2017-10-03] MEDS: ACETAZOLAMIDE 500 MG CAPSULE.SA PO SCH (11:15)
[2017-10-03] MEDS: BUDESONIDE/FORMOTEROL 160-4.5 MCG 60 PUFF/6 GM MDI IH SCH ×2 (11:15→17:09)
[2017-10-03] MEDS: TIOTROPIUM BROMIDE DPI 5 CAP/KIT (18 MCG/CAP) IH SCH (11:16)
--- NOTE | 2017-10-03 14:19 | PDOC PROGRESS REPORT ---
Subjective Progress Note for:: 10/03/17 Subjective:: She was seen by the bedside, admitted for pneumonia in the setting of severe COPD Reason For Visit: SEVERE MULTIFOCAL PNEUMONIA, AFIB, COPD Physical Exam Vital Signs: Temp Pulse Resp BP Pulse Ox 98.7 F 89 18 121/57 L 100 10/03/17 08:13 10/03/17 08:13 10/03/17 08:13 10/03/17 08:13 10/03/17 08:13 Intake & Output 10/02/17 10/03/17 10/04/17 06:59 06:59 06:59 Intake Total 3337 1974 Output Total 500 Balance 2837 1973 Weight 40.3 kg 38.8 kg General appearance: PRESENT: no acute distress Eye exam: PRESENT: PERRLA Respiratory exam: PRESENT: wheezes Cardiovascular exam: PRESENT: +S1, +S2 Neurological exam: PRESENT: alert Results Laboratory Results: 10/03/17 05:33 10/03/17 05:33 10/02/17 10/02/17 10/03/17 05:24 05:24 05:33 WBC 16.5 H 17.3 H RBC 2.98 L 2.89 L Hgb 9.2 L 9.0 L Hct 29.6 L 27.9 L MCV 99 H 97 MCH 30.9 31.1 MCHC 31.1 L 32.2 RDW 18.5 H 17.9 H Plt Count 388 379 Seg Neutrophils % Not Reportable Not Reportable Lymphocytes % Not Reportable Not Reportable Monocytes % Not Reportable Not Reportable Eosinophils % Not Reportable Not Reportable Basophils % Not Reportable Not Reportable Absolute Neutrophils Not Reportable Not Reportable Absolute Lymphocytes Not Reportable Not Reportable Absolute Monocytes Not Reportable Not Reportable Absolute Eosinophils Not Reportable Not Reportable Absolute Basophils Not Reportable Not Reportable Sodium 143.0 Potassium 3.9 Chloride 110 H Carbon Dioxide 25 Anion Gap 8 BUN 17 Creatinine 0.75 Est GFR ( Amer) > 60 Est GFR (Non-Af Amer) > 60 Glucose 89 Calcium 9.6 Total Bilirubin 0.4 AST 18 ALT 30 Alkaline Phosphatase 75 Total Protein 5.0 L Albumin 2.5 L 10/03/17 05:33 WBC RBC Hgb Hct MCV MCH MCHC RDW Plt Count Seg Neutrophils % Lymphocytes % Monocytes % Eosinophils % Basophils % Absolute Neutrophils Absolute Lymphocytes Absolute Monocytes Absolute Eosinophils Absolute Basophils Sodium 142.1 Potassium 3.8 Chloride 107 Carbon Dioxide 28 Anion Gap 7 BUN 15 Creatinine 0.74 Est GFR ( Amer) > 60 Est GFR (Non-Af Amer) > 60 Glucose 115 H Calcium 9.2 Total Bilirubin 0.3 AST 17 ALT 28 Alkaline Phosphatase 72 Total Protein 5.2 L Albumin 2.7 L Impressions: Chest X-Ray 09/28/17 22:31 IMPRESSION: STABLE APPEARANCE OF THE CHEST INCLUDING UNDERLYING EMPHYSEMA AND SMALL BILATERAL PLEURAL EFFUSIONS. Chest CT 09/29/17 00:00 IMPRESSION: INTERVAL DEVELOPMENT OF PATCHY MULTIFOCAL AIRSPACE DISEASE COMPATIBLE WITH PNEUMONIA. CORRELATE WITH FEVER/ ELEVATED WHITE BLOOD CELL COUNT. NO PULMONARY EMBOLI OR ACUTE AORTIC INJURY. STABLE SMALL/TRACE BILATERAL PLEURAL EFFUSIONS. Assessment & Plan - Diagnosis (1) Multifocal pneumonia Is this a current diagnosis for this admission?: Yes (2) Metabolic acidosis with respiratory acidosis Is this a current diagnosis for this admission?: Yes (3) Warfarin-induced coagulopathy Is this a current diagnosis for this admission?: Yes (4) Atrial fibrillation Qualifiers: Atrial fibrillation type: chronic Qualified Code(s): I48.2 - Chronic atrial fibrillation Is this a current diagnosis for this admission?: Yes (5) Acute and chronic respiratory failure ([id number]) Qualifiers: Respiratory failure complication: hypercapnia Qualified Code(s): J96.22 - Acute and chronic respiratory failure with hypercapnia Is this a current diagnosis for this admission?: Yes (6) COPD (chronic obstructive pulmonary disease) Qualifiers: COPD type: unspecified COPD Qualified Code(s): J44.9 - Chronic obstructive pulmonary disease, unspecified Is this a current diagnosis for this admission?: Yes - Plan Summary Plan Summary: Continue treatment
--- NOTE | 2017-10-03 15:13 | RADIOLOGY REPORT (SQ) ---
EXAM DESCRIPTION: CHEST PA/LAT COMPLETED DATE/TIME: 10/03/2017 2:48 pm REASON FOR STUDY: pneumonia COMPARISON: CT dated 09/29/2017. Chest x-ray dated 09/28/2017. EXAM PARAMETERS: NUMBER OF VIEWS: two views TECHNIQUE: Digital Frontal and Lateral radiographic views of the chest acquired. RADIATION DOSE: NA LIMITATIONS: none FINDINGS: LUNGS AND PLEURA: Hyperinflation. Chronic scarring in the lung apices. Faint patchy pare nchymal opacities. Small right pleural effusion and moderate left pleural effusion. MEDIASTINUM AND HILAR STRUCTURES: No masses or contour abnormalities. HEART AND VASCULAR STRUCTURES: Heart normal size. No evidence for failure. BONES: No acute findings. HARDWARE: Surgical clips. OTHER: No other significant finding. IMPRESSION: COPD WITH FAINT PATCHY PARENCHYMAL OPACITIES AND PLEURAL EFFUSIONS, LEFT GREATER THAN RI GHT. COMPARED TO THE RECENT CHEST CT, THE PLEURAL EFFUSIONS MAY BE SLIGHTLY LARGER. TECHNICAL DOCUMENTATION: JOB ID: [id number]- All Rights Reserved
[2017-10-03] MEDS: ACETAMINOPHEN 325 MG TABLET PO PRN (17:05)
[2017-10-03] MEDS: LEVOFLOXACIN 750 MG/D5W RTU 750 MG/150 ML RTUPB IV SCH (21:11)
[2017-10-03] MEDS: LATANOPROST 0.005% OPH SOLN 2.5 ML OU SCH (21:11)
[2017-10-03] MEDS: ATORVASTATIN CALCIUM 40 MG TABLET PO SCH (21:11)
[2017-10-03] MEDS: WARFARIN SODIUM 2 MG TABLET PO SCH (21:12)
[2017-10-03 23:08] LABS: APPEARANCE,URINE SLIGHTLY-CLOUDY; BILIRUBIN,URINE NEGATIVE (NEGATIVE); COLOR,URINE YELLOW; GLUCOSE, URINE NEGATIVE (NEGATIVE); KETONES,URINE NEGATIVE (NEGATIVE); LEUKOCYTE ESTERASE,URINE NEGATIVE (NEGATIVE); NITRITE,URINE NEGATIVE (NEGATIVE); PROTEIN,URINE NEGATIVE (NEGATIVE); URINE SPECIFIC GRAVITY 1.011; UROBILINOGEN,URINE NEGATIVE mg/dL (<2.0)
[2017-10-04] MEDS: ACETAMINOPHEN 325 MG TABLET PO PRN ×2 (00:02→14:58)
[2017-10-04 06:08] LABS: INTERNATIONAL RATION (INR) 1.39; PROTHROMBIN TIME 17.9 SEC (11.4-15.4)
[2017-10-04] MEDS: CEFEPIME HCL 2 GM in DEXTROSE 5%-WATER 50 ML IV SCH ×2 (06:10→17:25)
[2017-10-04] MEDS: BUDESONIDE/FORMOTEROL 160-4.5 MCG 60 PUFF/6 GM MDI IH SCH ×2 (09:52→17:25)
[2017-10-04] MEDS: TIOTROPIUM BROMIDE DPI 5 CAP/KIT (18 MCG/CAP) IH SCH (09:53)
[2017-10-04] MEDS: MULTIVITAMIN TABLET PO SCH (09:54)
[2017-10-04] MEDS: DILTIAZEM HCL 120 MG CAP.SR.24H PO SCH (09:54)
[2017-10-04] MEDS: ACETAZOLAMIDE 500 MG CAPSULE.SA PO SCH (09:55)
[2017-10-04] MEDS: LANSOPRAZOLE 30 MG TAB.RAP.DR PO SCH (09:55)
[2017-10-04] MEDS: CALCIUM CARBONATE 250 MG/VITAMIN D3 125 UNIT TABLET PO SCH (09:56)
[2017-10-04] MEDS: VALSARTAN 40 MG TABLET PO SCH (09:56)
[2017-10-04] MEDS: CITALOPRAM HYDROBROMIDE 20 MG TABLET PO SCH (09:56)
[2017-10-04] MEDS: METOPROLOL SUCCINATE 25 MG TAB.SR.24H PO SCH (09:57)
--- NOTE | 2017-10-04 19:02 | PDOC PROGRESS REPORT ---
Subjective Progress Note for:: 10/04/17 Subjective:: She was admitted for the management of pneumonia in the setting of very severe chronic obstructive pulmonary disease. The chest x-ray that was done yesterday suggests slight worsening of pleural effusion, she was advised previously that she may be discharged home by the end of the week but I do not see that happening in light of the findings of the chest x-ray and the fact that she has very severe COPD. She is also very symptomatic she get very short of breath on minimal exertion she is a full code. Reason For Visit: SEVERE MULTIFOCAL PNEUMONIA, AFIB, COPD Physical Exam Vital Signs: Temp Pulse Resp BP Pulse Ox 98.7 F 64 16 91/55 L 100 10/04/17 15:37 10/04/17 15:37 10/04/17 15:37 10/04/17 15:37 10/04/17 15:37 Intake & Output 10/03/17 10/04/17 10/05/17 06:59 06:59 06:59 Intake Total 1973 1622 222 Output Total 100 Balance 1973 1522 222 Weight 38.8 kg 37.6 kg General appearance: PRESENT: mild distress Eye exam: PRESENT: PERRLA Respiratory exam: PRESENT: rhonchi, wheezes Cardiovascular exam: PRESENT: +S1, +S2 GI/Abdominal exam: PRESENT: soft Neurological exam: PRESENT: alert, CN II-XII grossly intact Results Laboratory Results: 10/03/17 05:33 10/03/17 05:33 10/03/17 10/04/17 22:24 11:00 Urine Color YELLOW Urine Appearance SLIGHTLY-CLOUDY Urine pH 7.0 Ur Specific [place] 1.011 Urine Protein NEGATIVE Urine Glucose (UA) NEGATIVE Urine Ketones NEGATIVE Urine Blood NEGATIVE Urine Nitrite NEGATIVE Ur Leukocyte Esterase NEGATIVE Urine RBC (Auto) 5 Stool Occult Blood NEGATIVE Impressions: Chest CT 09/29/17 00:00 IMPRESSION: INTERVAL DEVELOPMENT OF PATCHY MULTIFOCAL AIRSPACE DISEASE COMPATIBLE WITH PNEUMONIA. CORRELATE WITH FEVER/ ELEVATED WHITE BLOOD CELL COUNT. NO PULMONARY EMBOLI OR ACUTE AORTIC INJURY. STABLE SMALL/TRACE BILATERAL PLEURAL EFFUSIONS. Chest X-Ray 10/03/17 00:00 IMPRESSION: COPD WITH FAINT PATCHY PARENCHYMAL OPACITIES AND PLEURAL EFFUSIONS , LEFT GREATER THAN RIGHT. COMPARED TO THE RECENT CHEST CT, THE PLEURAL EFFUSIONS MAY BE SLIGHTLY LARGER. Assessment & Plan - Diagnosis (1) Multifocal pneumonia Is this a current diagnosis for this admission?: Yes (2) Metabolic acidosis with respiratory acidosis Is this a current diagnosis for this admission?: Yes (3) Warfarin-induced coagulopathy Is this a current diagnosis for this admission?: Yes (4) Atrial fibrillation Qualifiers: Atrial fibrillation type: chronic Qualified Code(s): I48.2 - Chronic atrial fibrillation Is this a current diagnosis for this admission?: Yes (5) Acute and chronic respiratory failure ([id number]) Qualifiers: Respiratory failure complication: hypercapnia Qualified Code(s): J96.22 - Acute and chronic respiratory failure with hypercapnia Is this a current diagnosis for this admission?: Yes (6) COPD (chronic obstructive pulmonary disease) Qualifiers: COPD type: unspecified COPD Qualified Code(s): J44.9 - Chronic obstructive pulmonary disease, unspecified Is this a current diagnosis for this admission?: Yes - Plan Summary Plan Summary: Continue IV antibiotic, continue present regimen, DC IV fluids, change Coumadin dose to 3 mg p.o. daily
[2017-10-04] MEDS: LEVOFLOXACIN 750 MG/D5W RTU 750 MG/150 ML RTUPB IV SCH (21:22)
[2017-10-04] MEDS: WARFARIN SODIUM 3 MG TABLET PO SCH (21:22)
[2017-10-04] MEDS: ATORVASTATIN CALCIUM 40 MG TABLET PO SCH (21:22)
[2017-10-04] MEDS: LATANOPROST 0.005% OPH SOLN 2.5 ML OU SCH (21:25)
[2017-10-05] MEDS: ACETAMINOPHEN 325 MG TABLET PO PRN ×2 (00:43→21:06)
[2017-10-05] MEDS: CEFEPIME HCL 2 GM in DEXTROSE 5%-WATER 50 ML IV SCH ×2 (05:32→17:16)
[2017-10-05 09:29] LABS: HEMATOCRIT 28.6 % (36.0-47.0); HEMOGLOBIN 8.8 g/dL (12.0-15.5); MEAN CORPUSCULAR HEMOGLOBIN 30.9 pg (27.0-33.4); MEAN CORPUSCULAR HGB CONC 30.8 g/dL (32.0-36.0); MEAN CORPUSCULAR VOLUME 100 fl (80-97); PLATELET COUNT 374 10^3/uL (150-450); RED BLOOD COUNT 2.85 10^6/uL (3.72-5.28); RED CELL DISTRIBUTION WIDTH 17.9 % (11.5-14.0); WHITE BLOOD COUNT 17.2 10^3/uL (4.0-10.5)
[2017-10-05 09:52] LABS: ABSOLUTE LYMPHOCYTES# (MANUAL) 2.1 10^3/uL (0.5-4.7); ABSOLUTE NEUTROPHILS# (MANUAL) 14.1 10^3/uL (1.7-8.2); BAND NEUTROPHILS % (MANUAL) 5 % (3-5); BASOPHILS % (MANUAL) 0 % (0-2); EOSINOPHILS % (MANUAL) 0 % (0-6); LYMPHOCYTES % (MANUAL) 12 % (13-45); METAMYELOCYTES % (MANUAL) 3 % (0); MONOCYTES % (MANUAL) 6 % (3-13); MYELOCYTES % (MANUAL) 2 % (0); SEGMENTED NEUTROPHILS % (MAN) 72 % (42-78); TOTAL CELLS COUNTED 100
[2017-10-05 09:54] LABS: POLYCHROMASIA SLIGHT
[2017-10-05 09:55] LABS: ANISOCYTOSIS 2+; HYPOCHROMASIA SLIGHT; OVALOCYTES SLIGHT; PLATELET COMMENT ADEQUATE; POIKILOCYTOSIS SLIGHT; SCHISTOCYTES SLIGHT
[2017-10-05 09:56] LABS: ALANINE AMINOTRANSFERASE 26 U/L (9-52); ALBUMIN 2.8 g/dL (3.5-5.0); ALKALINE PHOSPHATASE 71 U/L (38-126); ANION GAP 9 (5-19); ASPARTATE AMINO TRANSFERASE 16 U/L (14-36); BILIRUBIN,DIRECT 0.3 mg/dL (0.0-0.4); BILIRUBIN,TOTAL 0.4 mg/dL (0.2-1.3); BLOOD UREA NITROGEN 19 mg/dL (7-20); CALCIUM 9.4 mg/dL (8.4-10.2); CARBON DIOXIDE 28 mmol/L (22-30); CHLORIDE 106 mmol/L (98-107); GLUCOSE 98 mg/dL (75-110); POTASSIUM 4.3 mmol/L (3.6-5.0); SODIUM 142.6 mmol/L (137-145); TOTAL PROTEIN 5.2 g/dL (6.3-8.2)
[2017-10-05] MEDS: ACETAZOLAMIDE 500 MG CAPSULE.SA PO SCH (10:21)
[2017-10-05] MEDS: LANSOPRAZOLE 30 MG TAB.RAP.DR PO SCH (10:22)
[2017-10-05] MEDS: VALSARTAN 40 MG TABLET PO SCH (10:22)
[2017-10-05] MEDS: CITALOPRAM HYDROBROMIDE 20 MG TABLET PO SCH (10:22)
[2017-10-05] MEDS: MULTIVITAMIN TABLET PO SCH (10:22)
[2017-10-05] MEDS: DILTIAZEM HCL 120 MG CAP.SR.24H PO SCH (10:22)
[2017-10-05] MEDS: TIOTROPIUM BROMIDE DPI 5 CAP/KIT (18 MCG/CAP) IH SCH (10:23)
[2017-10-05] MEDS: CALCIUM CARBONATE 250 MG/VITAMIN D3 125 UNIT TABLET PO SCH (10:23)
[2017-10-05] MEDS: BUDESONIDE/FORMOTEROL 160-4.5 MCG 60 PUFF/6 GM MDI IH SCH ×2 (10:24→17:21)
[2017-10-05] MEDS: METOPROLOL SUCCINATE 25 MG TAB.SR.24H PO SCH (10:25)
[2017-10-05 11:07] LABS: APPEARANCE,URINE CLEAR; BILIRUBIN,URINE NEGATIVE (NEGATIVE); COLOR,URINE STRAW; GLUCOSE, URINE NEGATIVE (NEGATIVE); KETONES,URINE NEGATIVE (NEGATIVE); LEUKOCYTE ESTERASE,URINE NEGATIVE (NEGATIVE); NITRITE,URINE NEGATIVE (NEGATIVE); PROTEIN,URINE NEGATIVE (NEGATIVE); UROBILINOGEN,URINE NEGATIVE mg/dL (<2.0)
--- NOTE | 2017-10-05 19:00 | PDOC PROGRESS REPORT ---
Subjective Progress Note for:: 10/05/17 Subjective:: She was admitted for the management of pneumonia in the setting of very severe chronic obstructive pulmonary disease. The chest x-ray that was done yesterday suggests slight worsening of pleural effusion, she was advised previously that she may be discharged home by the end of the week but I do not see that happening in light of the findings of the chest x-ray and the fact that she has very severe COPD. She is also very symptomatic she get very short of breath on minimal exertion she is a full code. Reason For Visit: SEVERE MULTIFOCAL PNEUMONIA, AFIB, COPD Physical Exam Vital Signs: Temp Pulse Resp BP Pulse Ox 98.5 F 61 16 82/42 L 100 10/05/17 15:33 10/05/17 15:33 10/05/17 15:33 10/05/17 15:33 10/05/17 15:33 Intake & Output 10/04/17 10/05/17 10/06/17 06:59 06:59 06:59 Intake Total 1622 1184 555 Output Total 100 600 100 Balance 1522 584 455 Weight 37.6 kg 36.5 kg General appearance: PRESENT: no acute distress Head exam: PRESENT: atraumatic, normocephalic Eye exam: PRESENT: conjunctiva pink, EOMI, PERRLA Mouth exam: PRESENT: moist, tongue midline Neck exam: PRESENT: full ROM Respiratory exam: PRESENT: rhonchi Cardiovascular exam: PRESENT: +S1, +S2 Vascular exam: PRESENT: normal capillary refill GI/Abdominal exam: PRESENT: normal bowel sounds, soft Rectal exam: PRESENT: deferred Neurological exam: PRESENT: alert, awake, oriented to person, oriented to place , oriented to time, oriented to situation, CN II-XII grossly intact Psychiatric exam: PRESENT: appropriate affect, normal mood Skin exam: PRESENT: dry, intact, warm Results Laboratory Results: 10/05/17 09:00 10/05/17 09:00 10/05/17 10/05/17 10/05/17 09:00 09:00 10:45 WBC 17.2 H RBC 2.85 L Hgb 8.8 L Hct 28.6 L MCV 100 H MCH 30.9 MCHC 30.8 L RDW 17.9 H Plt Count 374 Seg Neutrophils % Not Reportable Lymphocytes % Not Reportable Monocytes % Not Reportable Eosinophils % Not Reportable Basophils % Not Reportable Absolute Neutrophils Not Reportable Absolute Lymphocytes Not Reportable Absolute Monocytes Not Reportable Absolute Eosinophils Not Reportable Absolute Basophils Not Reportable Sodium 142.6 Potassium 4.3 Chloride 106 Carbon Dioxide 28 Anion Gap 9 BUN 19 Creatinine 0.76 Est GFR ( Amer) > 60 Est GFR (Non-Af Amer) > 60 Glucose 98 Calcium 9.4 Total Bilirubin 0.4 AST 16 ALT 26 Alkaline Phosphatase 71 Total Protein 5.2 L Albumin 2.8 L Urine Color Urine Appearance Urine pH Ur Specific [place] Urine Protein Urine Glucose (UA) Urine Ketones Urine Blood Urine Nitrite Ur Leukocyte Esterase Urine WBC (Auto) Urine RBC (Auto) Stool Occult Blood NEGATIVE 10/05/17 10:45 WBC RBC Hgb Hct MCV MCH MCHC RDW Plt Count Seg Neutrophils % Lymphocytes % Monocytes % Eosinophils % Basophils % Absolute Neutrophils Absolute Lymphocytes Absolute Monocytes Absolute Eosinophils Absolute Basophils Sodium Potassium Chloride Carbon Dioxide Anion Gap BUN Creatinine Est GFR ( Amer) Est GFR (Non-Af Amer) Glucose Calcium Total Bilirubin AST ALT Alkaline Phosphatase Total Protein Albumin Urine Color STRAW Urine Appearance CLEAR Urine pH 7.0 Ur Specific [place] 1.010 Urine Protein NEGATIVE Urine Glucose (UA) NEGATIVE Urine Ketones NEGATIVE Urine Blood NEGATIVE Urine Nitrite NEGATIVE Ur Leukocyte Esterase NEGATIVE Urine WBC (Auto) 1 Urine RBC (Auto) 0 Stool Occult Blood Impressions: Chest CT 09/29/17 00:00 IMPRESSION: INTERVAL DEVELOPMENT OF PATCHY MULTIFOCAL AIRSPACE DISEASE COMPATIBLE WITH PNEUMONIA. CORRELATE WITH FEVER/ ELEVATED WHITE BLOOD CELL COUNT. NO PULMONARY EMBOLI OR ACUTE AORTIC INJURY. STABLE SMALL/TRACE BILATERAL PLEURAL EFFUSIONS. Chest X-Ray 10/03/17 00:00 IMPRESSION: COPD WITH FAINT PATCHY PARENCHYMAL OPACITIES AND PLEURAL EFFUSIONS , LEFT GREATER THAN RIGHT. COMPARED TO THE RECENT CHEST CT, THE PLEURAL EFFUSIONS MAY BE SLIGHTLY LARGER. Assessment & Plan - Diagnosis (1) Multifocal pneumonia Is this a current diagnosis for this admission?: Yes (2) Metabolic acidosis with respiratory acidosis Is this a current diagnosis for this admission?: Yes (3) Warfarin-induced coagulopathy Is this a current diagnosis for this admission?: Yes (4) Atrial fibrillation Qualifiers: Atrial fibrillation type: chronic Qualified Code(s): I48.2 - Chronic atrial fibrillation Is this a current diagnosis for this admission?: Yes (5) Acute and chronic respiratory failure ([id number]) Qualifiers: Respiratory failure complication: hypercapnia Qualified Code(s): J96.22 - Acute and chronic respiratory failure with hypercapnia Is this a current diagnosis for this admission?: Yes (6) COPD (chronic obstructive pulmonary disease) Qualifiers: COPD type: unspecified COPD Qualified Code(s): J44.9 - Chronic obstructive pulmonary disease, unspecified Is this a current diagnosis for this admission?: Yes
[2017-10-05] MEDS: ATORVASTATIN CALCIUM 40 MG TABLET PO SCH (21:05)
[2017-10-05] MEDS: LEVOFLOXACIN 750 MG/D5W RTU 750 MG/150 ML RTUPB IV SCH (21:05)
[2017-10-05] MEDS: LATANOPROST 0.005% OPH SOLN 2.5 ML OU SCH (21:05)
[2017-10-05] MEDS: WARFARIN SODIUM 3 MG TABLET PO SCH (21:06)
[2017-10-06] MEDS: CEFEPIME HCL 2 GM in DEXTROSE 5%-WATER 50 ML IV SCH ×2 (05:33→17:46)
[2017-10-06 05:44] LABS: HEMATOCRIT 27.7 % (36.0-47.0); HEMOGLOBIN 8.8 g/dL (12.0-15.5); MEAN CORPUSCULAR HEMOGLOBIN 31.4 pg (27.0-33.4); MEAN CORPUSCULAR HGB CONC 31.7 g/dL (32.0-36.0); MEAN CORPUSCULAR VOLUME 99 fl (80-97); PLATELET COUNT 339 10^3/uL (150-450); RED BLOOD COUNT 2.79 10^6/uL (3.72-5.28); RED CELL DISTRIBUTION WIDTH 18.7 % (11.5-14.0); WHITE BLOOD COUNT 15.1 10^3/uL (4.0-10.5)
[2017-10-06] MEDS: ACETAZOLAMIDE 500 MG CAPSULE.SA PO SCH (10:45)
[2017-10-06] MEDS: TIOTROPIUM BROMIDE DPI 5 CAP/KIT (18 MCG/CAP) IH SCH (10:47)
[2017-10-06] MEDS: BUDESONIDE/FORMOTEROL 160-4.5 MCG 60 PUFF/6 GM MDI IH SCH ×2 (10:48→19:03)
[2017-10-06] MEDS: MULTIVITAMIN TABLET PO SCH (10:49)
[2017-10-06] MEDS: CALCIUM CARBONATE 250 MG/VITAMIN D3 125 UNIT TABLET PO SCH (10:49)
[2017-10-06] MEDS: LANSOPRAZOLE 30 MG TAB.RAP.DR PO SCH (10:49)
[2017-10-06] MEDS: CITALOPRAM HYDROBROMIDE 20 MG TABLET PO SCH (10:50)
[2017-10-06] MEDS: DILTIAZEM HCL 120 MG CAP.SR.24H PO SCH (10:50)
[2017-10-06] MEDS: ACETAMINOPHEN 325 MG TABLET PO PRN ×2 (11:07→21:56)
--- NOTE | 2017-10-06 15:19 | PDOC PROGRESS REPORT ---
Subjective Progress Note for:: 10/06/17 Subjective:: Patient on supplemental oxygen via nasal cannula with expressed exertional dyspnea. She remain on IV Cefepime and Levofloxacin coverage. Interval events noted and discussed with patient and daughter during my bedside consultation. Reason For Visit: SEVERE MULTIFOCAL PNEUMONIA, AFIB, COPD Physical Exam Vital Signs: Temp Pulse Resp BP Pulse Ox 98.2 F 73 18 130/39 H 100 10/06/17 12:07 10/06/17 14:00 10/06/17 12:07 10/06/17 12:07 10/06/17 12:07 Intake & Output 10/05/17 10/06/17 10/07/17 06:59 06:59 06:59 Intake Total 1184 1410 Output Total 600 300 Balance 584 1110 Weight 36.5 kg 37.4 kg General appearance: PRESENT: no acute distress, mild distress - on supplemental oxygen Head exam: PRESENT: atraumatic, normocephalic Eye exam: PRESENT: conjunctiva pink, EOMI, PERRLA. ABSENT: scleral icterus Respiratory exam: PRESENT: clear to auscultation leslie, crackles - scattered bilaterally, decreased breath sounds - at lung bases Cardiovascular exam: PRESENT: irregular rhythm, +S1, +S2. ABSENT: diastolic murmur, systolic murmur Vascular exam: PRESENT: normal capillary refill. ABSENT: pallor GI/Abdominal exam: PRESENT: normal bowel sounds, soft. ABSENT: distended, guarding, mass, organolmegaly, rebound, tenderness Extremities exam: ABSENT: pedal edema Musculoskeletal exam: PRESENT: normal inspection Neurological exam: PRESENT: alert, awake, oriented to person, oriented to place , oriented to time, oriented to situation, CN II-XII grossly intact. ABSENT: motor sensory deficit Psychiatric exam: PRESENT: appropriate affect, normal mood. ABSENT: homicidal ideation, suicidal ideation Skin exam: PRESENT: dry, intact, warm. ABSENT: cyanosis, rash Results Laboratory Results: 10/06/17 05:27 10/05/17 09:00 10/06/17 05:27 WBC 15.1 H RBC 2.79 L Hgb 8.8 L Hct 27.7 L MCV 99 H MCH 31.4 MCHC 31.7 L RDW 18.7 H Plt Count 339 Impressions: Chest CT 09/29/17 00:00 IMPRESSION: INTERVAL DEVELOPMENT OF PATCHY MULTIFOCAL AIRSPACE DISEASE COMPATIBLE WITH PNEUMONIA. CORRELATE WITH FEVER/ ELEVATED WHITE BLOOD CELL COUNT. NO PULMONARY EMBOLI OR ACUTE AORTIC INJURY. STABLE SMALL/TRACE BILATERAL PLEURAL EFFUSIONS. Chest X-Ray 10/03/17 00:00 IMPRESSION: COPD WITH FAINT PATCHY PARENCHYMAL OPACITIES AND PLEURAL EFFUSIONS , LEFT GREATER THAN RIGHT. COMPARED TO THE RECENT CHEST CT, THE PLEURAL EFFUSIONS MAY BE SLIGHTLY LARGER. Assessment & Plan - Diagnosis (1) Multifocal pneumonia Is this a current diagnosis for this admission?: Yes Plan: See attending physician orders. (2) COPD (chronic obstructive pulmonary disease) Qualifiers: COPD type: unspecified COPD Qualified Code(s): J44.9 - Chronic obstructive pulmonary disease, unspecified Is this a current diagnosis for this admission?: Yes Plan: See attending physician orders. (3) Chronic atrial fibrillation Is this a current diagnosis for this admission?: Yes Plan: See attending physician orders. - Time Time Spent with patient: 25-34 minutes Anticipated discharge: Home with Homehealth Within: Other - Inpatient Certification Based on my medical assessment, after consideration of the patient's comorbidities, presenting symptoms, or acuity I expect that the services needed warrant INPATIENT care.: Yes I certify that my determination is in accordance with my understanding of Medicare's requirements for reasonable and necessary INPATIENT services [42 CFR 412.3e].: Yes Medical Necessity: Need Close Monitoring Due to Risk of Patient Decompensation, Need For IV Fluids, Need For Continuous Telemetry Monitoring, Need for Nebulizer Therapy and Monitoring of Response, Need for IV Antibiotics, Risk of Complication if Not Cared For in Hospital Post Hospital Care: D/C Brick Offbearer 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
[2017-10-06] MEDS: VALSARTAN 40 MG TABLET PO SCH (15:43)
[2017-10-06 17:29] LABS: INTERNATIONAL RATION (INR) 1.46; PROTHROMBIN TIME 18.6 SEC (11.4-15.4)
[2017-10-06] MEDS ORDERED: DILTIAZEM HCL 120 MG CAP.SR.24H PO SCH (18:00)
[2017-10-06] MEDS ORDERED: METOPROLOL SUCCINATE 25 MG TAB.SR.24H PO SCH (18:00)
[2017-10-06] MEDS: ATORVASTATIN CALCIUM 40 MG TABLET PO SCH (21:15)
[2017-10-06] MEDS: LEVOFLOXACIN 750 MG/D5W RTU 750 MG/150 ML RTUPB IV SCH (21:15)
[2017-10-06] MEDS: LATANOPROST 0.005% OPH SOLN 2.5 ML OU SCH (21:16)
[2017-10-06] MEDS ORDERED: WARFARIN SODIUM 3 MG TABLET PO SCH (22:00)
[2017-10-07] MEDS: CEFEPIME HCL 2 GM in DEXTROSE 5%-WATER 50 ML IV SCH ×2 (06:42→17:10)
[2017-10-07 07:04] LABS: INTERNATIONAL RATION (INR) 1.44; PROTHROMBIN TIME 18.4 SEC (11.4-15.4)
[2017-10-07] MEDS: METOPROLOL SUCCINATE 25 MG TAB.SR.24H PO SCH (09:53)
[2017-10-07] MEDS: CALCIUM CARBONATE 250 MG/VITAMIN D3 125 UNIT TABLET PO SCH (09:53)
[2017-10-07] MEDS: DILTIAZEM HCL 120 MG CAP.SR.24H PO SCH (09:54)
[2017-10-07] MEDS: MULTIVITAMIN TABLET PO SCH (09:54)
[2017-10-07] MEDS: ACETAZOLAMIDE 500 MG CAPSULE.SA PO SCH (09:54)
[2017-10-07] MEDS: CITALOPRAM HYDROBROMIDE 20 MG TABLET PO SCH (09:54)
[2017-10-07] MEDS: LANSOPRAZOLE 30 MG TAB.RAP.DR PO SCH (09:54)
[2017-10-07] MEDS: BUDESONIDE/FORMOTEROL 160-4.5 MCG 60 PUFF/6 GM MDI IH SCH ×2 (09:56→17:11)
[2017-10-07] MEDS: VALSARTAN 40 MG TABLET PO SCH (09:56)
[2017-10-07] MEDS: TIOTROPIUM BROMIDE DPI 5 CAP/KIT (18 MCG/CAP) IH SCH (10:53)
[2017-10-07] MEDS: ACETAMINOPHEN 325 MG TABLET PO PRN (10:55)
--- NOTE | 2017-10-07 14:06 | PDOC PROGRESS REPORT ---
Subjective Progress Note for:: 10/07/17 Subjective:: Patient on denied any chest pain. Breathing at base line and remain on supplemental oxygen via nasal cannula. She remain on IV Cefepime and Levofloxacin coverage. Reason For Visit: SEVERE MULTIFOCAL PNEUMONIA, AFIB, COPD Physical Exam Vital Signs: Temp Pulse Resp BP Pulse Ox 97.7 F 69 20 108/39 L 100 10/07/17 11:38 10/07/17 11:38 10/07/17 11:38 10/07/17 11:38 10/07/17 11:38 Intake & Output 10/06/17 10/07/17 10/08/17 06:59 06:59 06:59 Intake Total 1410 2233 322 Output Total 300 Balance 1110 2233 322 Weight 37.4 kg 37.5 kg Physical Exam: General appearance: PRESENT: no acute distress, mild distress - on supplemental oxygen Head exam: PRESENT: atraumatic, normocephalic Eye exam: PRESENT: conjunctiva pink, EOMI, PERRLA. ABSENT: scleral icterus Respiratory exam: PRESENT: clear to auscultation leslie, crackles - scattered bilaterally, decreased breath sounds - at lung bases Cardiovascular exam: PRESENT: irregular rhythm, +S1, +S2. ABSENT: diastolic murmur, systolic murmur Vascular exam: PRESENT: normal capillary refill. ABSENT: pallor GI/Abdominal exam: PRESENT: normal bowel sounds, soft. ABSENT: distended, guarding, mass, organomegaly, rebound, tenderness Extremities exam: ABSENT: pedal edema Musculoskeletal exam: PRESENT: normal inspection Neurological exam: PRESENT: alert, awake, oriented to person, oriented to place , oriented to time, oriented to situation, CN II-XII grossly intact. ABSENT: motor sensory deficit Psychiatric exam: PRESENT: appropriate affect, normal mood. ABSENT: homicidal ideation, suicidal ideation Skin exam: PRESENT: dry, intact, warm. ABSENT: cyanosis, rash Results Laboratory Results: 10/06/17 05:27 10/05/17 09:00 Impressions: Chest CT 09/29/17 00:00 IMPRESSION: INTERVAL DEVELOPMENT OF PATCHY MULTIFOCAL AIRSPACE DISEASE COMPATIBLE WITH PNEUMONIA. CORRELATE WITH FEVER/ ELEVATED WHITE BLOOD CELL COUNT. NO PULMONARY EMBOLI OR ACUTE AORTIC INJURY. STABLE SMALL/TRACE BILATERAL PLEURAL EFFUSIONS. Chest X-Ray 10/03/17 00:00 IMPRESSION: COPD WITH FAINT PATCHY PARENCHYMAL OPACITIES AND PLEURAL EFFUSIONS , LEFT GREATER THAN RIGHT. COMPARED TO THE RECENT CHEST CT, THE PLEURAL EFFUSIONS MAY BE SLIGHTLY LARGER. Assessment & Plan - Diagnosis (1) Multifocal pneumonia Is this a current diagnosis for this admission?: Yes Plan: See attending physician orders. Maintain on IV Cefepime and Levofloxacin coverage. (2) COPD (chronic obstructive pulmonary disease) Qualifiers: COPD type: unspecified COPD Qualified Code(s): J44.9 - Chronic obstructive pulmonary disease, unspecified Is this a current diagnosis for this admission?: Yes Plan: See attending physician orders. (3) Chronic atrial fibrillation Is this a current diagnosis for this admission?: Yes Plan: Suboptimal INR. Patient will receive adjusted dose of Coumadin tonight. - Time Time Spent with patient: 25-34 minutes Medications reviewed and adjusted accordingly: Yes Anticipated discharge: Home with Homehealth - Inpatient Certification Based on my medical assessment, after consideration of the patient's comorbidities, presenting symptoms, or acuity I expect that the services needed warrant INPATIENT care.: Yes I certify that my determination is in accordance with my understanding of Medicare's requirements for reasonable and necessary INPATIENT services [42 CFR 412.3e].: Yes Medical Necessity: Need Close Monitoring Due to Risk of Patient Decompensation, Need For Continuous Telemetry Monitoring, Need for Nebulizer Therapy and Monitoring of Response, Need for IV Antibiotics, Risk of Complication if Not Cared For in Hospital Post Hospital Care: D/C Paper Final Inspector Documentation - Plan Summary Plan Summary: Continue current management with Coumadin dosage adjustment.
[2017-10-07] MEDS ORDERED: WARFARIN SODIUM 3 MG TABLET PO SCH (22:00)
[2017-10-07] MEDS: LATANOPROST 0.005% OPH SOLN 2.5 ML OU SCH (22:04)
[2017-10-07] MEDS: LEVOFLOXACIN 750 MG/D5W RTU 750 MG/150 ML RTUPB IV SCH (22:05)
[2017-10-07] MEDS: ATORVASTATIN CALCIUM 40 MG TABLET PO SCH (22:08)
[2017-10-08] MEDS: ACETAMINOPHEN 325 MG TABLET PO PRN ×3 (00:55→22:54)
[2017-10-08] MEDS: CEFEPIME HCL 2 GM in DEXTROSE 5%-WATER 50 ML IV SCH ×2 (05:57→18:08)
[2017-10-08] MEDS: LANSOPRAZOLE 30 MG TAB.RAP.DR PO SCH (09:34)
[2017-10-08] MEDS: CITALOPRAM HYDROBROMIDE 20 MG TABLET PO SCH (09:35)
[2017-10-08] MEDS: ACETAZOLAMIDE 500 MG CAPSULE.SA PO SCH (09:35)
[2017-10-08] MEDS: METOPROLOL SUCCINATE 25 MG TAB.SR.24H PO SCH (09:36)
[2017-10-08] MEDS: MULTIVITAMIN TABLET PO SCH (09:36)
[2017-10-08] MEDS: CALCIUM CARBONATE 250 MG/VITAMIN D3 125 UNIT TABLET PO SCH (09:36)
[2017-10-08] MEDS: VALSARTAN 40 MG TABLET PO SCH (09:37)
[2017-10-08] MEDS: DILTIAZEM HCL 120 MG CAP.SR.24H PO SCH (09:37)
[2017-10-08] MEDS: TIOTROPIUM BROMIDE DPI 5 CAP/KIT (18 MCG/CAP) IH SCH (09:38)
[2017-10-08] MEDS: BUDESONIDE/FORMOTEROL 160-4.5 MCG 60 PUFF/6 GM MDI IH SCH ×2 (09:38→18:09)
[2017-10-08 10:04] LABS: APPEARANCE,URINE CLEAR; BILIRUBIN,URINE NEGATIVE (NEGATIVE); COLOR,URINE STRAW; GLUCOSE, URINE NEGATIVE (NEGATIVE); KETONES,URINE NEGATIVE (NEGATIVE); LEUKOCYTE ESTERASE,URINE NEGATIVE (NEGATIVE); NITRITE,URINE NEGATIVE (NEGATIVE); PROTEIN,URINE NEGATIVE (NEGATIVE); UROBILINOGEN,URINE NEGATIVE mg/dL (<2.0)
--- NOTE | 2017-10-08 17:03 | PDOC PROGRESS REPORT ---
Subjective Progress Note for:: 10/08/17 Subjective:: Patient reported worsening mid back pain that wrapped around her back. Requesting for increase in Acetaminophen dosage to 650 mg for pain control. No chest pain. Breathing is at baseline. Remain on supplemental oxygen via nasal cannula. No fever or chills. No nausea, vomiting, or abdominal pain. Reason For Visit: SEVERE MULTIFOCAL PNEUMONIA, AFIB, COPD Physical Exam Vital Signs: Temp Pulse Resp BP Pulse Ox 98.4 F 67 16 139/39 H 99 10/08/17 07:59 10/08/17 07:59 10/08/17 07:59 10/08/17 07:59 10/08/17 07:59 Intake & Output 10/07/17 10/08/17 10/09/17 06:59 06:59 06:59 Intake Total 2233 1444 Balance 2233 1444 Weight 37.5 kg 35.6 kg Physical Exam: General appearance: PRESENT: no acute distress, mild distress - on supplemental oxygen Head exam: PRESENT: atraumatic, normocephalic Eye exam: PRESENT: conjunctiva pink, EOMI, PERRLA. ABSENT: scleral icterus Respiratory exam: PRESENT: minimal crackles - scattered bilaterally, decreased breath sounds - at lung bases Cardiovascular exam: PRESENT: irregular rhythm, +S1, +S2. ABSENT: diastolic murmur, systolic murmur Vascular exam: PRESENT: normal capillary refill. ABSENT: pallor GI/Abdominal exam: PRESENT: normal bowel sounds, soft. ABSENT: distended, guarding, mass, organomegaly, rebound, tenderness Extremities exam: ABSENT: pedal edema Musculoskeletal exam: PRESENT: normal inspection Neurological exam: PRESENT: alert, awake, oriented to person, oriented to place , oriented to time, oriented to situation, CN II-XII grossly intact. ABSENT: motor sensory deficit Psychiatric exam: PRESENT: appropriate affect, normal mood. ABSENT: homicidal ideation, suicidal ideation Skin exam: PRESENT: dry, intact, warm. ABSENT: cyanosis, rash Results Laboratory Results: 10/06/17 05:27 10/05/17 09:00 10/08/17 09:45 Urine Color STRAW Urine Appearance CLEAR Urine pH 7.0 Ur Specific [place] 1.010 Urine Protein NEGATIVE Urine Glucose (UA) NEGATIVE Urine Ketones NEGATIVE Urine Blood NEGATIVE Urine Nitrite NEGATIVE Ur Leukocyte Esterase NEGATIVE Urine WBC (Auto) 1 Impressions: Chest CT 09/29/17 00:00 IMPRESSION: INTERVAL DEVELOPMENT OF PATCHY MULTIFOCAL AIRSPACE DISEASE COMPATIBLE WITH PNEUMONIA. CORRELATE WITH FEVER/ ELEVATED WHITE BLOOD CELL COUNT. NO PULMONARY EMBOLI OR ACUTE AORTIC INJURY. STABLE SMALL/TRACE BILATERAL PLEURAL EFFUSIONS. Chest X-Ray 10/03/17 00:00 IMPRESSION: COPD WITH FAINT PATCHY PARENCHYMAL OPACITIES AND PLEURAL EFFUSIONS , LEFT GREATER THAN RIGHT. COMPARED TO THE RECENT CHEST CT, THE PLEURAL EFFUSIONS MAY BE SLIGHTLY LARGER. Assessment & Plan - Diagnosis (1) Multifocal pneumonia Is this a current diagnosis for this admission?: Yes (2) COPD (chronic obstructive pulmonary disease) Qualifiers: COPD type: unspecified COPD Qualified Code(s): J44.9 - Chronic obstructive pulmonary disease, unspecified Is this a current diagnosis for this admission?: Yes (3) Chronic atrial fibrillation Is this a current diagnosis for this admission?: Yes (4) Multilevel spondylosis Is this a current diagnosis for this admission?: Yes Plan: See attending physician orders. I will increase Acetaminophen to 650 mg p.o q 4 hours prn for pain management. Encourage use of local thermal therapy for pain control. - Time Time Spent with patient: 25-34 minutes Medications reviewed and adjusted accordingly: Yes Anticipated discharge: Home Within: Other - Inpatient Certification Based on my medical assessment, after consideration of the patient's comorbidities, presenting symptoms, or acuity I expect that the services needed warrant INPATIENT care.: Yes I certify that my determination is in accordance with my understanding of Medicare's requirements for reasonable and necessary INPATIENT services [42 CFR 412.3e].: Yes Medical Necessity: Need Close Monitoring Due to Risk of Patient Decompensation, Need For IV Fluids, Need For Continuous Telemetry Monitoring, Need for Nebulizer Therapy and Monitoring of Response, Need for IV Antibiotics, Risk of Complication if Not Cared For in Hospital Post Hospital Care: D/C Purchasing Contracting 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
[2017-10-08 17:36] LABS: INTERNATIONAL RATION (INR) 1.65; PROTHROMBIN TIME 20.5 SEC (11.4-15.4)
[2017-10-08] MEDS ORDERED: WARFARIN SODIUM 3 MG TABLET PO SCH (22:00)
[2017-10-08] MEDS: ATORVASTATIN CALCIUM 40 MG TABLET PO SCH (22:41)
[2017-10-08] MEDS: LEVOFLOXACIN 750 MG/D5W RTU 750 MG/150 ML RTUPB IV SCH (22:41)
[2017-10-08] MEDS: LATANOPROST 0.005% OPH SOLN 2.5 ML OU SCH (22:43)
[2017-10-09] MEDS: CEFEPIME HCL 2 GM in DEXTROSE 5%-WATER 50 ML IV SCH ×2 (05:46→17:12)
[2017-10-09 06:58] LABS: INTERNATIONAL RATION (INR) 1.92; PROTHROMBIN TIME 23.1 SEC (11.4-15.4)
[2017-10-09] MEDS: CALCIUM CARBONATE 250 MG/VITAMIN D3 125 UNIT TABLET PO SCH (09:41)
[2017-10-09] MEDS: MULTIVITAMIN TABLET PO SCH (09:42)
[2017-10-09] MEDS: ACETAZOLAMIDE 500 MG CAPSULE.SA PO SCH (09:42)
[2017-10-09] MEDS: VALSARTAN 40 MG TABLET PO SCH (09:42)
[2017-10-09] MEDS: CITALOPRAM HYDROBROMIDE 20 MG TABLET PO SCH (09:42)
[2017-10-09] MEDS: DILTIAZEM HCL 120 MG CAP.SR.24H PO SCH (09:42)
[2017-10-09] MEDS: METOPROLOL SUCCINATE 25 MG TAB.SR.24H PO SCH (09:42)
[2017-10-09] MEDS: LANSOPRAZOLE 30 MG TAB.RAP.DR PO SCH (09:43)
[2017-10-09] MEDS: TIOTROPIUM BROMIDE DPI 5 CAP/KIT (18 MCG/CAP) IH SCH (09:43)
[2017-10-09] MEDS: BUDESONIDE/FORMOTEROL 160-4.5 MCG 60 PUFF/6 GM MDI IH SCH ×2 (09:43→17:12)
--- NOTE | 2017-10-09 12:28 | PDOC PROGRESS REPORT ---
Subjective Progress Note for:: 10/09/17 Subjective:: No fever or chills. No chest pain. Breathing is at baseline. Remain on supplemental oxygen via nasal cannula. No nausea, vomiting, or abdominal pain. Appetite and P.O intake remain a challenge. Reason For Visit: SEVERE MULTIFOCAL PNEUMONIA, AFIB, COPD Physical Exam Vital Signs: Temp Pulse Resp BP Pulse Ox 97.8 F 63 16 130/52 H 98 10/09/17 07:47 10/09/17 07:47 10/09/17 07:47 10/09/17 09:44 10/09/17 07:47 Intake & Output 10/08/17 10/09/17 10/10/17 06:59 06:59 06:59 Intake Total 1444 1272 Output Total 250 Balance 1444 1022 Weight 35.6 kg 38.2 kg Physical Exam: General appearance: PRESENT: no acute distress, mild distress - on supplemental oxygen Head exam: PRESENT: atraumatic, normocephalic Eye exam: PRESENT: conjunctiva pink, EOMI, PERRLA. ABSENT: scleral icterus Respiratory exam: PRESENT: minimal crackles - scattered bilaterally, decreased breath sounds - at lung bases Cardiovascular exam: PRESENT: irregular rhythm, +S1, +S2. ABSENT: diastolic murmur, systolic murmur Vascular exam: PRESENT: normal capillary refill. ABSENT: pallor GI/Abdominal exam: PRESENT: normal bowel sounds, soft. ABSENT: distended, guarding, mass, organomegaly, rebound, tenderness Extremities exam: ABSENT: pedal edema Musculoskeletal exam: PRESENT: normal inspection Neurological exam: PRESENT: alert, awake, oriented to person, oriented to place , oriented to time, oriented to situation, CN II-XII grossly intact. ABSENT: motor sensory deficit Psychiatric exam: PRESENT: appropriate affect, normal mood. ABSENT: homicidal ideation, suicidal ideation Skin exam: PRESENT: dry, intact, warm. ABSENT: cyanosis, rash Results Laboratory Results: 10/06/17 05:27 10/05/17 09:00 10/09/17 10:25 Stool Occult Blood NEGATIVE Impressions: Chest CT 09/29/17 00:00 IMPRESSION: INTERVAL DEVELOPMENT OF PATCHY MULTIFOCAL AIRSPACE DISEASE COMPATIBLE WITH PNEUMONIA. CORRELATE WITH FEVER/ ELEVATED WHITE BLOOD CELL COUNT. NO PULMONARY EMBOLI OR ACUTE AORTIC INJURY. STABLE SMALL/TRACE BILATERAL PLEURAL EFFUSIONS. Chest X-Ray 10/03/17 00:00 IMPRESSION: COPD WITH FAINT PATCHY PARENCHYMAL OPACITIES AND PLEURAL EFFUSIONS , LEFT GREATER THAN RIGHT. COMPARED TO THE RECENT CHEST CT, THE PLEURAL EFFUSIONS MAY BE SLIGHTLY LARGER. Assessment & Plan - Diagnosis (1) Multifocal pneumonia Is this a current diagnosis for this admission?: Yes (2) COPD (chronic obstructive pulmonary disease) Qualifiers: COPD type: unspecified COPD Qualified Code(s): J44.9 - Chronic obstructive pulmonary disease, unspecified Is this a current diagnosis for this admission?: Yes (3) Chronic atrial fibrillation Is this a current diagnosis for this admission?: Yes (4) Multilevel spondylosis Is this a current diagnosis for this admission?: Yes - Time Time Spent with patient: 25-34 minutes Medications reviewed and adjusted accordingly: Yes Anticipated discharge: Home with Homehealth Within: Other - Inpatient Certification Based on my medical assessment, after consideration of the patient's comorbidities, presenting symptoms, or acuity I expect that the services needed warrant INPATIENT care.: Yes I certify that my determination is in accordance with my understanding of Medicare's requirements for reasonable and necessary INPATIENT services [42 CFR 412.3e].: Yes Medical Necessity: Need Close Monitoring Due to Risk of Patient Decompensation, Need For IV Fluids, Need For Continuous Telemetry Monitoring, Need for Nebulizer Therapy and Monitoring of Response, Need for IV Antibiotics, Risk of Complication if Not Cared For in Hospital Post Hospital Care: D/C Regulatory Services Consultant 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
[2017-10-09] MEDS ORDERED: ALBUTEROL SULFATE HFA (90 MCG/PUFF) 200 PUFF/8.5 GM MDI IH PRN (13:31)
[2017-10-09] MEDS: ACETAMINOPHEN 325 MG TABLET PO PRN (22:32)
[2017-10-09] MEDS: ATORVASTATIN CALCIUM 40 MG TABLET PO SCH (22:33)
[2017-10-09] MEDS: WARFARIN SODIUM 3 MG TABLET PO SCH (22:33)
[2017-10-09] MEDS: LATANOPROST 0.005% OPH SOLN 2.5 ML OU SCH (22:34)
[2017-10-09] MEDS: LEVOFLOXACIN 750 MG/D5W RTU 750 MG/150 ML RTUPB IV SCH (22:35)
[2017-10-10] MEDS: CEFEPIME HCL 2 GM in DEXTROSE 5%-WATER 50 ML IV SCH ×2 (06:34→18:14)
[2017-10-10 06:59] LABS: INTERNATIONAL RATION (INR) 2.04; PROTHROMBIN TIME 24.2 SEC (11.4-15.4)
[2017-10-10] MEDS: CITALOPRAM HYDROBROMIDE 20 MG TABLET PO SCH (10:31)
[2017-10-10] MEDS: CALCIUM CARBONATE 250 MG/VITAMIN D3 125 UNIT TABLET PO SCH (10:31)
[2017-10-10] MEDS: TIOTROPIUM BROMIDE DPI 5 CAP/KIT (18 MCG/CAP) IH SCH (10:31)
[2017-10-10] MEDS: VALSARTAN 40 MG TABLET PO SCH (10:31)
[2017-10-10] MEDS: BUDESONIDE/FORMOTEROL 160-4.5 MCG 60 PUFF/6 GM MDI IH SCH ×2 (10:31→18:16)
[2017-10-10] MEDS: ACETAZOLAMIDE 500 MG CAPSULE.SA PO SCH (10:31)
[2017-10-10] MEDS: DILTIAZEM HCL 120 MG CAP.SR.24H PO SCH (10:31)
[2017-10-10] MEDS: MULTIVITAMIN TABLET PO SCH (10:31)
[2017-10-10] MEDS: METOPROLOL SUCCINATE 25 MG TAB.SR.24H PO SCH (10:31)
[2017-10-10] MEDS: LANSOPRAZOLE 30 MG TAB.RAP.DR PO SCH (10:31)
--- NOTE | 2017-10-10 17:59 | PDOC PROGRESS REPORT ---
Subjective Progress Note for:: 10/10/17 Subjective:: No chest pain. Breathing is at baseline. Remain on supplemental oxygen via nasal cannula. No fever or chills. No nausea, vomiting, or abdominal pain. Reason For Visit: SEVERE MULTIFOCAL PNEUMONIA, AFIB, COPD Physical Exam Vital Signs: Temp Pulse Resp BP Pulse Ox 98.1 F 64 18 114/47 L 94 10/10/17 11:46 10/10/17 11:46 10/10/17 11:46 10/10/17 11:46 10/10/17 11:46 Intake & Output 10/09/17 10/10/17 10/11/17 06:59 06:59 06:59 Intake Total 1272 2044 Output Total 250 Balance 1022 2044 Weight 38.2 kg 38.3 kg Physical Exam: General appearance: PRESENT: no acute distress, mild distress - on supplemental oxygen Head exam: PRESENT: atraumatic, normocephalic Eye exam: PRESENT: conjunctiva pink, EOMI, PERRLA. ABSENT: scleral icterus Respiratory exam: PRESENT: minimal crackles - scattered bilaterally, decreased breath sounds - at lung bases Cardiovascular exam: PRESENT: irregular rhythm, +S1, +S2. ABSENT: diastolic murmur, systolic murmur Vascular exam: PRESENT: normal capillary refill. ABSENT: pallor GI/Abdominal exam: PRESENT: normal bowel sounds, soft. ABSENT: distended, guarding, mass, organomegaly, rebound, tenderness Extremities exam: ABSENT: pedal edema Musculoskeletal exam: PRESENT: normal inspection Neurological exam: PRESENT: alert, awake, oriented to person, oriented to place , oriented to time, oriented to situation, CN II-XII grossly intact. ABSENT: motor sensory deficit Psychiatric exam: PRESENT: appropriate affect, normal mood. ABSENT: homicidal ideation, suicidal ideation Skin exam: PRESENT: dry, intact, warm. ABSENT: cyanosis, rash Results Laboratory Results: 10/06/17 05:27 10/05/17 09:00 Impressions: Chest CT 09/29/17 00:00 IMPRESSION: INTERVAL DEVELOPMENT OF PATCHY MULTIFOCAL AIRSPACE DISEASE COMPATIBLE WITH PNEUMONIA. CORRELATE WITH FEVER/ ELEVATED WHITE BLOOD CELL COUNT. NO PULMONARY EMBOLI OR ACUTE AORTIC INJURY. STABLE SMALL/TRACE BILATERAL PLEURAL EFFUSIONS. Chest X-Ray 10/03/17 00:00 IMPRESSION: COPD WITH FAINT PATCHY PARENCHYMAL OPACITIES AND PLEURAL EFFUSIONS , LEFT GREATER THAN RIGHT. COMPARED TO THE RECENT CHEST CT, THE PLEURAL EFFUSIONS MAY BE SLIGHTLY LARGER. Assessment & Plan - Diagnosis (1) Multifocal pneumonia Is this a current diagnosis for this admission?: Yes (2) COPD (chronic obstructive pulmonary disease) Qualifiers: COPD type: unspecified COPD Qualified Code(s): J44.9 - Chronic obstructive pulmonary disease, unspecified Is this a current diagnosis for this admission?: Yes (3) Chronic atrial fibrillation Is this a current diagnosis for this admission?: Yes (4) Multilevel spondylosis Is this a current diagnosis for this admission?: Yes - Time Time Spent with patient: 25-34 minutes Medications reviewed and adjusted accordingly: Yes Anticipated discharge: Home with Homehealth Within: within 48 hours - Inpatient Certification Based on my medical assessment, after consideration of the patient's comorbidities, presenting symptoms, or acuity I expect that the services needed warrant INPATIENT care.: Yes I certify that my determination is in accordance with my understanding of Medicare's requirements for reasonable and necessary INPATIENT services [42 CFR 412.3e].: Yes Medical Necessity: Need Close Monitoring Due to Risk of Patient Decompensation, Need For IV Fluids, Need For Continuous Telemetry Monitoring, Need for IV Antibiotics, Risk of Complication if Not Cared For in Hospital Post Hospital Care: D/C Meat Grading 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 Consider discontinuation of antibiotic coverage after completion of today's dosing.
[2017-10-10] MEDS: ATORVASTATIN CALCIUM 40 MG TABLET PO SCH (22:49)
[2017-10-10] MEDS: WARFARIN SODIUM 3 MG TABLET PO SCH (22:49)
[2017-10-10] MEDS: LATANOPROST 0.005% OPH SOLN 2.5 ML OU SCH (22:50)
[2017-10-10] MEDS: ACETAMINOPHEN 325 MG TABLET PO PRN (22:50)
[2017-10-11 07:35] LABS: HEMATOCRIT 29.4 % (36.0-47.0); HEMOGLOBIN 9.3 g/dL (12.0-15.5); MEAN CORPUSCULAR HEMOGLOBIN 31.7 pg (27.0-33.4); MEAN CORPUSCULAR HGB CONC 31.8 g/dL (32.0-36.0); MEAN CORPUSCULAR VOLUME 100 fl (80-97); PLATELET COUNT 355 10^3/uL (150-450); RED BLOOD COUNT 2.95 10^6/uL (3.72-5.28); RED CELL DISTRIBUTION WIDTH 18.7 % (11.5-14.0); WHITE BLOOD COUNT 11.4 10^3/uL (4.0-10.5)
[2017-10-11 07:42] LABS: INTERNATIONAL RATION (INR) 1.74; PROTHROMBIN TIME 21.4 SEC (11.4-15.4)
[2017-10-11 08:00] LABS: ABSOLUTE LYMPHOCYTES# (MANUAL) 2.7 10^3/uL (0.5-4.7); ABSOLUTE MONOCYTES # (MANUAL) 0.9 10^3/uL (0.1-1.4); ABSOLUTE NEUTROPHILS# (MANUAL) 7.6 10^3/uL (1.7-8.2); BAND NEUTROPHILS % (MANUAL) 5 % (3-5); BASOPHILS % (MANUAL) 1 % (0-2); EOSINOPHILS % (MANUAL) 0 % (0-6); LYMPHOCYTES % (MANUAL) 24 % (13-45); MONOCYTES % (MANUAL) 8 % (3-13); SEGMENTED NEUTROPHILS % (MAN) 60 % (42-78); TOTAL CELLS COUNTED 100
[2017-10-11 08:04] LABS: ANISOCYTOSIS 1+; OVALOCYTES 1+; PLATELET CLUMPS PRESENT; PLATELET COMMENT ADEQUATE; POIKILOCYTOSIS SLIGHT; POLYCHROMASIA SLIGHT
[2017-10-11 08:06] LABS: MYELOCYTES % (MANUAL) 2 % (0)
--- NOTE | 2017-10-11 09:48 | RADIOLOGY REPORT (SQ) ---
EXAM DESCRIPTION: CHEST PA/LAT COMPLETED DATE/TIME: 10/11/2017 9:31 am REASON FOR STUDY: Multilobar pneumonia COMPARISON: 09/29/2017 CT chest Chest films 09/28/2017, 10/03/2017 EXAM PARAMETERS: NUMBER OF VIEWS: two views TECHNIQUE: Digital Frontal and Lateral radiographic views of the chest acquired. RADIATION DOSE: NA LIMITATIONS: none FINDINGS: LUNGS AND PLEURA: Clearing of the patchy bilateral airspace disease seen on 10/03/2017. Lungs are hyperinflated and hyperlucent from obstructive disease. Trace bilateral pleural effusions are unchanged. No pneumothorax MEDIASTINUM AND HILAR STRUCTURES: No masses or contour abnormalities. HEART AND VASCULAR STRUCTURES: Stable borderline cardiomegaly BONES: No acute findings. HARDWARE: Clips right breast. OTHER: No other significant finding. IMPRESSION: Obstructive lung disease. Trace stable pleural fluid bilaterally. TECHNICAL DOCUMENTATION: JOB ID: [id number] [employer]- All Rights Reserved
[2017-10-11] MEDS: CITALOPRAM HYDROBROMIDE 20 MG TABLET PO SCH (09:56)
[2017-10-11] MEDS: ACETAZOLAMIDE 500 MG CAPSULE.SA PO SCH (09:56)
[2017-10-11] MEDS: METOPROLOL SUCCINATE 25 MG TAB.SR.24H PO SCH (09:56)
[2017-10-11] MEDS: MULTIVITAMIN TABLET PO SCH (09:56)
[2017-10-11] MEDS: DILTIAZEM HCL 120 MG CAP.SR.24H PO SCH (09:57)
[2017-10-11] MEDS: CALCIUM CARBONATE 250 MG/VITAMIN D3 125 UNIT TABLET PO SCH (09:57)
[2017-10-11] MEDS: BUDESONIDE/FORMOTEROL 160-4.5 MCG 60 PUFF/6 GM MDI IH SCH ×2 (09:57→17:06)
[2017-10-11] MEDS: LANSOPRAZOLE 30 MG TAB.RAP.DR PO SCH (09:57)
[2017-10-11] MEDS: TIOTROPIUM BROMIDE DPI 5 CAP/KIT (18 MCG/CAP) IH SCH (09:58)
[2017-10-11] MEDS: VALSARTAN 40 MG TABLET PO SCH (10:05)
[2017-10-11 12:29] LABS: APPEARANCE,URINE SLIGHTLY-CLOUDY; BILIRUBIN,URINE NEGATIVE (NEGATIVE); COLOR,URINE YELLOW; GLUCOSE, URINE NEGATIVE (NEGATIVE); KETONES,URINE NEGATIVE (NEGATIVE); LEUKOCYTE ESTERASE,URINE NEGATIVE (NEGATIVE); NITRITE,URINE NEGATIVE (NEGATIVE); PROTEIN,URINE NEGATIVE (NEGATIVE); URINE SPECIFIC GRAVITY 1.013; UROBILINOGEN,URINE NEGATIVE mg/dL (<2.0)
[2017-10-11 13:25] LABS: PATH REVIEW PATHOLOGIST REVIEWED
--- NOTE | 2017-10-11 16:56 | PDOC PROGRESS REPORT ---
Subjective Progress Note for:: 10/11/17 Subjective:: No fever or chills. No chest pain. OOB in chair, off supplemental oxygen via nasal cannula. No abdominal pain, nausea or vomiting. Off IV antibiotic therapy. Reason For Visit: SEVERE MULTIFOCAL PNEUMONIA, AFIB, COPD Physical Exam Vital Signs: Temp Pulse Resp BP Pulse Ox 98.2 F 66 16 91/38 L 97 10/11/17 12:44 10/11/17 14:00 10/11/17 12:44 10/11/17 12:44 10/11/17 12:44 Intake & Output 10/10/17 10/11/17 10/12/17 06:59 06:59 06:59 Intake Total 2044 973 Balance 2044 973 Weight 38.3 kg 37.6 kg Physical Exam: General appearance: PRESENT: no acute distress Head exam: PRESENT: atraumatic, normocephalic Eye exam: PRESENT: conjunctiva pink, EOMI, PERRLA. ABSENT: scleral icterus Respiratory exam: PRESENT: decreased breath sounds - at lung bases Cardiovascular exam: PRESENT: irregular rhythm, +S1, +S2. ABSENT: diastolic murmur, systolic murmur Vascular exam: PRESENT: normal capillary refill. ABSENT: pallor GI/Abdominal exam: PRESENT: normal bowel sounds, soft. ABSENT: distended, guarding, mass, organomegaly, rebound, tenderness Extremities exam: ABSENT: pedal edema Musculoskeletal exam: PRESENT: normal inspection Neurological exam: PRESENT: alert, awake, oriented to person, oriented to place , oriented to time, oriented to situation, CN II-XII grossly intact. ABSENT: motor sensory deficit Psychiatric exam: PRESENT: appropriate affect, normal mood. ABSENT: homicidal ideation, suicidal ideation Skin exam: PRESENT: dry, intact, warm. ABSENT: cyanosis, rash Results Laboratory Results: 10/11/17 06:42 10/05/17 09:00 10/11/17 10/11/17 06:42 12:05 WBC 11.4 H RBC 2.95 L Hgb 9.3 L Hct 29.4 L MCV 100 H MCH 31.7 MCHC 31.8 L RDW 18.7 H Plt Count 355 Seg Neutrophils % Not Reportable Lymphocytes % Not Reportable Monocytes % Not Reportable Eosinophils % Not Reportable Basophils % Not Reportable Absolute Neutrophils Not Reportable Absolute Lymphocytes Not Reportable Absolute Monocytes Not Reportable Absolute Eosinophils Not Reportable Absolute Basophils Not Reportable Urine Color YELLOW Urine Appearance SLIGHTLY-CLOUDY Urine pH 6.0 Ur Specific [place] 1.013 Urine Protein NEGATIVE Urine Glucose (UA) NEGATIVE Urine Ketones NEGATIVE Urine Blood NEGATIVE Urine Nitrite NEGATIVE Ur Leukocyte Esterase NEGATIVE Urine WBC (Auto) 1 Urine RBC (Auto) 0 Impressions: Chest CT 09/29/17 00:00 IMPRESSION: INTERVAL DEVELOPMENT OF PATCHY MULTIFOCAL AIRSPACE DISEASE COMPATIBLE WITH PNEUMONIA. CORRELATE WITH FEVER/ ELEVATED WHITE BLOOD CELL COUNT. NO PULMONARY EMBOLI OR ACUTE AORTIC INJURY. STABLE SMALL/TRACE BILATERAL PLEURAL EFFUSIONS. Chest X-Ray 10/11/17 06:00 IMPRESSION: Obstructive lung disease. Trace stable pleural fluid bilaterally. Assessment & Plan - Diagnosis (1) Multifocal pneumonia Is this a current diagnosis for this admission?: Yes (2) COPD (chronic obstructive pulmonary disease) Qualifiers: COPD type: unspecified COPD Qualified Code(s): J44.9 - Chronic obstructive pulmonary disease, unspecified Is this a current diagnosis for this admission?: Yes (3) Chronic atrial fibrillation Is this a current diagnosis for this admission?: Yes (4) Multilevel spondylosis Is this a current diagnosis for this admission?: Yes - Time Time Spent with patient: 25-34 minutes Medications reviewed and adjusted accordingly: Yes Anticipated discharge: Home with Homehealth Within: within 24 hours - Inpatient Certification Based on my medical assessment, after consideration of the patient's comorbidities, presenting symptoms, or acuity I expect that the services needed warrant INPATIENT care.: Yes I certify that my determination is in accordance with my understanding of Medicare's requirements for reasonable and necessary INPATIENT services [42 CFR 412.3e].: Yes Medical Necessity: Need Close Monitoring Due to Risk of Patient Decompensation, Need For Continuous Telemetry Monitoring, Need for Nebulizer Therapy and Monitoring of Response, Risk of Complication if Not Cared For in Hospital Post Hospital Care: D/C Admissions Clerk Documentation - Plan Summary Plan Summary: Adjust Coumadin dosage due to drop in INR. if patient remain clinically stable, she is agreeable to discharge home tomorrow.
[2017-10-11] MEDS: ACETAMINOPHEN 325 MG TABLET PO PRN ×2 (17:06→22:56)
[2017-10-11] MEDS ORDERED: WARFARIN SODIUM 3 MG TABLET PO SCH (22:00)
[2017-10-11] MEDS: LATANOPROST 0.005% OPH SOLN 2.5 ML OU SCH (22:54)
[2017-10-11] MEDS: ATORVASTATIN CALCIUM 40 MG TABLET PO SCH (22:55)
[2017-10-12 06:59] LABS: INTERNATIONAL RATION (INR) 1.63; PROTHROMBIN TIME 20.3 SEC (11.4-15.4)
[2017-10-12] MEDS: ACETAZOLAMIDE 500 MG CAPSULE.SA PO SCH (11:43)
[2017-10-12] MEDS: MULTIVITAMIN TABLET PO SCH (11:44)
[2017-10-12] MEDS: CITALOPRAM HYDROBROMIDE 20 MG TABLET PO SCH (11:44)
[2017-10-12] MEDS: LANSOPRAZOLE 30 MG TAB.RAP.DR PO SCH (11:44)
[2017-10-12] MEDS: CALCIUM CARBONATE 250 MG/VITAMIN D3 125 UNIT TABLET PO SCH (11:44)
[2017-10-12] MEDS: BUDESONIDE/FORMOTEROL 160-4.5 MCG 60 PUFF/6 GM MDI IH SCH ×2 (11:45→17:39)
[2017-10-12] MEDS: VALSARTAN 40 MG TABLET PO SCH (12:08)
[2017-10-12] MEDS: DILTIAZEM HCL 120 MG CAP.SR.24H PO SCH (12:12)
[2017-10-12] MEDS: METOPROLOL SUCCINATE 25 MG TAB.SR.24H PO SCH (12:12)
[2017-10-12] MEDS: TIOTROPIUM BROMIDE DPI 5 CAP/KIT (18 MCG/CAP) IH SCH (12:12)
[2017-10-12] MEDS: ACETAMINOPHEN 325 MG TABLET PO PRN (15:12)
[2017-10-12 15:30] LABS: APPEARANCE,URINE SLIGHTLY-CLOUDY; BILIRUBIN,URINE NEGATIVE (NEGATIVE); COLOR,URINE YELLOW; GLUCOSE, URINE NEGATIVE (NEGATIVE); KETONES,URINE NEGATIVE (NEGATIVE); LEUKOCYTE ESTERASE,URINE TRACE (NEGATIVE); NITRITE,URINE NEGATIVE (NEGATIVE); PROTEIN,URINE NEGATIVE (NEGATIVE); URINE SPECIFIC GRAVITY 1.017; UROBILINOGEN,URINE NEGATIVE mg/dL (<2.0)
--- NOTE | 2017-10-12 15:46 | PDOC DISCHARGE SUMMARY ---
General - Admit/Disc Date/PCP Admission Date/Primary Care Provider: 09/29/17 15:53 АНДРЕЙ SUTTON Discharge Date: 10/12/17 - Discharge Diagnosis (1) Multifocal pneumonia Is this a current diagnosis for this admission?: Yes (2) COPD (chronic obstructive pulmonary disease) Is this a current diagnosis for this admission?: Yes (3) Chronic atrial fibrillation Is this a current diagnosis for this admission?: Yes (4) Multilevel spondylosis Is this a current diagnosis for this admission?: Yes - Additional Information Home Medications: Acetazolamide [Diamox Sequel 500 mg] 500 mg PO DAILY 09/29/17 Albuterol Sulfate [Proair HFA Inhalation Aerosol 8.5 gm MDI] 2 puff PO Q4HP PRN 09/29/17 Atorvastatin Calcium [Lipitor 40 mg Tablet] 40 mg PO QHS 09/29/17 Budesonide/Formoterol Fumarate [Symbicort 160-4.5 Mcg Inhaler] 2 puff PO BID Calcium Carbonate/Vitamin D3 [Oyster Shell 500-Vit D3 200 Tb] 1 tab PO DAILY Citalopram Hydrobromide [Celexa 20 mg Tablet] 20 mg PO DAILY 09/29/17 Diltiazem HCl [Cardizem Cd 120 mg Capsule] 120 mg PO DAILY 09/29/17 Latanoprost [Xalatan 0.005% Oph Soln 2.5 ml] 1 drop OU QHS 09/29/17 Metoprolol Succinate [Toprol Xl 25 mg Tab.sr] 25 mg PO DAILY 09/29/17 Multivitamin [Daily Multiple Vitamin] 1 tab PO DAILY 09/29/17 Pantoprazole Sodium [Protonix] 40 mg PO DAILY 09/29/17 Tiotropium [place] [Spiriva Handihaler 18 mcg/dose (30 Dose)] 1 cap IH DAILY Valsartan [Diovan 40 mg Tablet] 40 mg PO DAILY 09/29/17 Warfarin Sodium [Coumadin 3 mg Tablet] 3 mg PO QHS 09/29/17 History of Present Illness History of Present Illness: JUNIAD VILCHIS is a 72 year old female she has very severe chronic obstructive pulmonary disease, she came to the emergency room last night for evaluation of shortness of breath, she was in the emergency room last week for similar complaints, she was seen treated and discharged from the ER about a week ago, she has a history of chronic atrial fibrillation in the emergency room she had increased heart rate, the chest x-ray was nondiagnostic. The emergency room physician wants patient admitted because of the increased heart rate. When I saw her on the floor admitting complaint was shortness of breath she also was coughing but the cough was not productive of sputum, on auscultation of the chest there was no florid wheeze to suggest acute COPD exacerbation but because of comorbid condition I thought we needed to get CT chest with contrast, she was initially brought in for observation, CT chest with contrast was done he showed stable chronic interstitial lung disease/scarring with new patchy multifocal airspace disease involving the right more than the left upper lobes bilateral superior segment of the lower lobes this constituted on interval change from previous lung imaging this is consistent with multifocal pneumonia there was also associated leukocytosis WBC was 17,000. She has relative hypoxemia the ABG on FiO2 of 24%, pH 7.31, PO2 103.9, PCO2 37.8, bicarbonate 18.7. The expected PCO2 for the level of bicarbonate should be 24-30 but the measured PCO2 37.8 suggesting acute metabolic acidosis and respiratory acidosis Hospital Course Hospital Course: Patient responded to antibiotic therapy with significant improvement in her symptoms and radiological features on chest X ray. She had over 10 days on IV antibiotic therapy and no need for oral therapy. She remain afebrile for more than 24 hours off antibiotic coverage. She will be discharge home today with follow up in the office as instructed upon discharge. Physical Exam Vital Signs: Temp Pulse Resp BP Pulse Ox 98.3 F 72 16 100/52 L 96 10/12/17 12:00 10/12/17 14:00 10/12/17 12:00 10/12/17 12:00 10/12/17 12:00 Intake & Output 10/11/17 10/12/17 10/13/17 06:59 06:59 06:59 Intake Total 973 1652 Output Total 400 Balance 973 1252 Weight 37.6 kg 37.6 kg Physical Exam: General appearance: PRESENT: no acute distress Head exam: PRESENT: atraumatic, normocephalic Eye exam: PRESENT: conjunctiva pink, EOMI, PERRLA. ABSENT: scleral icterus Respiratory exam: PRESENT: decreased breath sounds - at lung bases Cardiovascular exam: PRESENT: irregular rhythm, +S1, +S2. ABSENT: diastolic murmur, systolic murmur Vascular exam: PRESENT: normal capillary refill. ABSENT: pallor GI/Abdominal exam: PRESENT: normal bowel sounds, soft. ABSENT: distended, guarding, mass, organomegaly, rebound, tenderness Extremities exam: ABSENT: pedal edema Musculoskeletal exam: PRESENT: normal inspection Neurological exam: PRESENT: alert, awake, oriented to person, oriented to place , oriented to time, oriented to situation, CN II-XII grossly intact. ABSENT: motor sensory deficit Psychiatric exam: PRESENT: appropriate affect, normal mood. ABSENT: homicidal ideation, suicidal ideation Skin exam: PRESENT: dry, intact, warm. ABSENT: cyanosis, rash Results Laboratory Results: 10/11/17 06:42 10/05/17 09:00 10/10/17 10/12/17 18:30 15:00 Urine Color YELLOW Urine Appearance SLIGHTLY-CLOUDY Urine pH 6.0 Ur Specific [place] 1.017 Urine Protein NEGATIVE Urine Glucose (UA) NEGATIVE Urine Ketones NEGATIVE Urine Blood NEGATIVE Urine Nitrite NEGATIVE Ur Leukocyte Esterase TRACE H Urine WBC (Auto) 2 Urine RBC (Auto) 1 Stool Occult Blood NEGATIVE Impressions: Chest CT 09/29/17 00:00 IMPRESSION: INTERVAL DEVELOPMENT OF PATCHY MULTIFOCAL AIRSPACE DISEASE COMPATIBLE WITH PNEUMONIA. CORRELATE WITH FEVER/ ELEVATED WHITE BLOOD CELL COUNT. NO PULMONARY EMBOLI OR ACUTE AORTIC INJURY. STABLE SMALL/TRACE BILATERAL PLEURAL EFFUSIONS. Chest X-Ray 10/11/17 06:00 IMPRESSION: Obstructive lung disease. Trace stable pleural fluid bilaterally. Qualifiers PATEINT BEING DISCHARGED WITH ANY OF THE FOLLOWING DIAGNOSIS?: No Plan Discharge Plan: D/C home today. Follow up in the office as instructed upon discharge. Time Spent: Less than 30 Minutes
[2017-10-12 16:39] VITALS: BP 109/38
== END 2017-10-12 18:10 | disposition home or self-care (01) | DRG 193 ==
LOC: ER 22:19 → EH 09-29 00:20 → INTOOBSV 09-29 00:20 → 4S 09-29 01:59 → OBSVTOIN 09-29 15:53 → 3S 09-29 17:45 → 5 10-11 20:31
PROVIDERS: ADMIT Internal Medicine Geriatric Medicine; ATTEND Internal Medicine Geriatric Medicine
DX: J18.9 Pneumonia, unspecified organism (principal); J96.22 Acute and chronic respiratory failure with hypercapnia; J44.0 Chronic obstructive pulmonary disease with (acute) lower respiratory infection; E87.4 Mixed disorder of acid-base balance; I48.2 Chronic atrial fibrillation; M47.9 Spondylosis, unspecified; I11.0 Hypertensive heart disease with heart failure; R79.1 Abnormal coagulation profile; I50.9 Heart failure, unspecified; J44.9 Chronic obstructive pulmonary disease, unspecified; Z85.3 Personal history of malignant neoplasm of breast; M19.90 Unspecified osteoarthritis, unspecified site; Z82.49 Family history of ischemic heart disease and other diseases of the circulatory system; Z79.02 Long term (current) use of antithrombotics/antiplatelets; Z79.899 Other long term (current) drug therapy; Z88.8 Allergy status to other drugs, medicaments and biological substances; Z87.891 Personal history of nicotine dependence
CPT/HCPCS: 36415; 36600; 71010; 71020; 71046; 71260; 80053; 81001; 82272; 82565; 82803; 83605; 85025; 85027; 85610; 85730; 87040; 93005; 93010; 94640; 96365; 96366; 99285; J0456; J0692; J0696; J1956; J3475; J3490; J7030; J7620

== ENCOUNTER 2018-01-04 18:39 | Emergency (ER) | payer MEDICARE, OTHER ==
[2018-01-04 19:45] LABS: ABSOLUTE LYMPHOCYTES (AUTO) 1.2 10^3/uL (0.5-4.7); ABSOLUTE MONOCYTES (AUTO) 0.6 10^3/uL (0.1-1.4); BASOPHILS % (AUTO) 0.3 % (0-2); EOSINOPHILS % (AUTO) 0.5 % (0-6); HEMATOCRIT 35.9 % (36.0-47.0); HEMOGLOBIN 11.4 g/dL (12.0-15.5); LYMPHOCYTES % (AUTO) 13.7 % (13-45); MEAN CORPUSCULAR HEMOGLOBIN 31.7 pg (27.0-33.4); MEAN CORPUSCULAR HGB CONC 31.7 g/dL (32.0-36.0); MEAN CORPUSCULAR VOLUME 100 fl (80-97); MONOCYTES % (AUTO) 7.2 % (3-13); PLATELET COUNT 163 10^3/uL (150-450); RED BLOOD COUNT 3.59 10^6/uL (3.72-5.28); RED CELL DISTRIBUTION WIDTH 15.5 % (11.5-14.0); SEGMENTED NEUTROPHILS % (AUTO) 78.3 % (42-78); TOTAL CELLS COUNTED % (AUTO) 100 %
[2018-01-04 20:06] LABS: ALANINE AMINOTRANSFERASE 19 U/L (9-52); ALBUMIN 4.2 g/dL (3.5-5.0); ALKALINE PHOSPHATASE 58 U/L (38-126); ANION GAP 10 (5-19); ASPARTATE AMINO TRANSFERASE 32 U/L (14-36); BILIRUBIN,DIRECT 0.2 mg/dL (0.0-0.4); BILIRUBIN,TOTAL 0.3 mg/dL (0.2-1.3); BLOOD UREA NITROGEN 20 mg/dL (7-20); CALCIUM 9.4 mg/dL (8.4-10.2); CARBON DIOXIDE 28 mmol/L (22-30); CHLORIDE 105 mmol/L (98-107); CREATINE KINASE 78 U/L (30-135); GLUCOSE 94 mg/dL (75-110); POTASSIUM 3.8 mmol/L (3.6-5.0); SODIUM 143.4 mmol/L (137-145)
[2018-01-04 20:16] LABS: CREATINE KINASE MB 2.57 ng/mL (<4.55)
[2018-01-04 20:22] LABS: TROPONIN I < 0.012 ng/mL
--- NOTE | 2018-01-04 20:31 | RADIOLOGY REPORT (SQ) ---
EXAM DESCRIPTION: CHEST SINGLE VIEW COMPLETED DATE/TIME: 01/04/2018 8:24 pm REASON FOR STUDY: sob COMPARISON: 10/11/2017 NUMBER OF VIEWS: One view. TECHNIQUE: Single frontal radiographic view of the chest acquired. LIMITATIONS: None. FINDINGS: LUNGS AND PLEURA: No opacities, masses or pneumothorax. Stable small bilateral pleural ef fusions. Attenuated blood vessels and flattened fredrick-diaphragms. MEDIASTINUM AND HILAR STRUCTURES: No masses. Contour normal. HEART AND VASCULAR STRUCTURES: Heart stable in size. Normal vasculature. BONES: No acute findings. HARDWARE: Stable. OTHER: No other significant finding. IMPRESSION: STABLE APPEARANCE OF THE CHEST WITH EMPHYSEMA AND SMALL BILATERAL PLEURAL EFFUSIONS. TECHNICAL DOCUMENTATION: JOB ID: [id number] [employer]- All Rights Reserved Reading location - IP/workstation name: [email or web address]
[2018-01-04] MEDS ORDERED: OXYCODONE-ACETAMINOPHEN 5-325 MG TABLET PO ONE (20:46)
--- NOTE | 2018-01-04 20:49 | ER Document Report ---
ED Respiratory Problem - General Chief Complaint: Cough Stated Complaint: SHORTHNESS OF BREATH Time Seen by Provider: 01/04/18 20:07 Notes: History of complain-72 years old old female with a history of COPD, on the pain medications presents today with chest wall pain, presently on taking deep breath. Coughing on and off. No increased wheezing. No fever chills or other constitutional symptoms. REVIEW OF SYSTEMS: CONSTITUTIONAL : Denies fever, chills, or sweats. Denies recent illness. EENT: Denies eye, ear, throat, or mouth pain or symptoms. Denies nasal or sinus congestion or discharge. Denies throat, tongue, or mouth swelling or difficulty swallowing. CARDIOVASCULAR: Denies chest pain. Denies palpitations or racing or irregular heart beat. Denies ankle edema. RESPIRATORY: Denies cough, cold, or chest congestion. Denies shortness of breath, difficulty breathing, or wheezing. GASTROINTESTINAL: Denies abdominal pain or distention. Denies nausea, vomiting , or diarrhea. Denies blood in vomitus, stools, or per rectum. Denies black, tarry stools. Denies constipation. GENITOURINARY: Denies difficulty urinating, painful urination, burning, frequency, blood in urine, or discharge. FEMALE GENITOURINARY: Denies vaginal bleeding, heavy or abnormal periods, irregular periods. Denies vaginal discharge or odor. MUSCULOSKELETAL: Denies back or neck pain or stiffness. Denies joint pain or swelling. SKIN: Denies rash, lesions or sores. HEMATOLOGIC : Denies easy bruising or bleeding. LYMPHATIC: Denies swollen, enlarged glands. NEUROLOGICAL: Denies confusion or altered mental status. Denies passing out or loss of consciousness. Denies dizziness or lightheadedness. Denies headache. Denies weakness or paralysis or loss of use of either side. Denies problems with gait or speech. Denies sensory loss, numbness, or tingling. Denies seizures. PSYCHIATRIC: Denies anxiety or stress. Denies depression, suicidal ideation, or homicidal ideation. ALL OTHER SYSTEMS REVIEWED AND NEGATIVE. PHYSICAL EXAMINATION: GENERAL: Cachexia of COPD HEAD: Atraumatic, normocephalic. EYES: Pupils equal round and reactive to light, extraocular movements intact, conjunctiva are normal. ENT: Nares patent, oropharynx clear without exudates. Moist mucous membranes. NECK: Normal range of motion, supple without lymphadenopathy LUNGS: Breath sounds clear to auscultation bilaterally and equal. No wheezes rales or rhonchi. HEART: Regular rate and rhythm without murmurs ABDOMEN: Soft, nontender, nondistended abdomen. No guarding, no rebound. No masses appreciated. Female : deferred Musculoskeletal: Normal range of motion, no pitting or edema. No cyanosis. NEUROLOGICAL: Cranial nerves grossly intact. Normal speech, normal gait. Normal sensory, motor exams PSYCH: Normal mood, normal affect. SKIN: Warm, Dry, normal turgor, no rashes or lesions noted. Dictation was performed using [employer] voice recognition software history of complain TRAVEL OUTSIDE OF THE [place] IN LAST 30 DAYS: No - Related Data Allergies/Adverse Reactions: bee pollen [Bee Pollen] Allergy (Unknown, Verified 01/04/18 18:45) propoxyphene [From Darvocet-N] Allergy (Verified 01/04/18 18:45) venom-wasp [Wasp Venom] Allergy (Verified 01/04/18 18:45) Past Medical History - Social History Smoking Status: Current Every Day Smoker Cigarette use (# per day): No Chew tobacco use (# tins/day): No Frequency of alcohol use: Rare Drug Abuse: None Family History: Reviewed & Not Pertinent, COPD, Hypertension Patient has suicidal ideation: No Patient has homicidal ideation: No - Past Medical History Cardiac Medical History: Reports: Hx Atrial Fibrillation, Hx Congestive Heart Failure, Hx Coronary Artery Disease, Hx Hypercholesterolemia, Hx Hypertension Pulmonary Medical History: Reports: Hx Bronchitis, Hx COPD - stage 3, Hx Pneumonia Renal/ Medical History: Denies: Hx Peritoneal Dialysis Malignancy Medical History: Reports: Hx Breast Cancer - right, over 10 years ago GI Medical History: Reports: Hx Ulcer Musculoskeltal Medical History: Reports Hx Arthritis, Reports Hx Musculoskeletal Deformity, Reports Hx Musculoskeletal Trauma Psychiatric Medical History: Reports: Hx Anxiety, Hx Depression Traumatic Medical History: Reports: Hx Fractures Past Surgical History: Reports: Hx Breast Surgery - lumpectomy, needle biopsy - Immunizations Immunizations up to date: Yes Hx Diphtheria, Pertussis, Tetanus Vaccination: Yes Review of Systems - Review of Systems Notes: As per history of complain Physical Exam - Vital signs Vitals: Temp Pulse BP Pulse Ox 98.2 F 69 124/51 L 96 03/30/18 18:51 01/04/18 18:51 01/04/18 18:51 01/04/18 18:51 Course - Re-evaluation Re-evalutation: 01/04/18 20:51 Patient appeared to be comfortable without any major major complaint. - Vital Signs Vital signs: Temp Pulse Resp BP Pulse Ox 98.2 F 69 124/51 L 96 01/04/18 18:51 01/04/18 18:51 01/04/18 18:51 01/04/18 19:37 - Laboratory Result Diagrams: 01/04/18 19:30 01/04/18 19:30 Laboratory results interpreted by me: 01/04/18 01/04/18 19:30 19:30 RBC 3.59 L Hgb 11.4 L Hct 35.9 L MCV 100 H MCHC 31.7 L RDW 15.5 H Seg Neutrophils % 78.3 H Est GFR (Non-Af Amer) 50 L - Diagnostic Test Radiology reviewed: Reports reviewed - Chest x-ray reported by radiologist as stable appearing COPD emphysema no new changes. - EKG Interpretation by Me Rhythm: A.Fib - Atrial fibrillation at the rate of 78 bpm normal axis no acute ST-T wave changes. Discharge - Discharge Clinical Impression: Chronic atrial fibrillation, Chest wall pain Atrial fibrillation Qualifiers: Atrial fibrillation type: chronic Qualified Code(s): I48.2 - Chronic atrial fibrillation COPD (chronic obstructive pulmonary disease) Qualifiers: COPD type: chronic bronchitis Chronic bronchitis type: unspecified Qualified Code(s): J42 - Unspecified chronic bronchitis Condition: Fair Disposition: HOME, SELF-CARE Instructions: Chest Wall Pain ([facility]) Referrals: АНДРЕЙ SUTTON MD [Primary Care Provider] - Follow up as needed
[2018-01-04 20:51] LABS: APPEARANCE,URINE CLEAR; BILIRUBIN,URINE NEGATIVE (NEGATIVE); COLOR,URINE YELLOW; GLUCOSE, URINE NEGATIVE (NEGATIVE); KETONES,URINE NEGATIVE (NEGATIVE)
[2018-01-04] MEDS ORDERED: PREDNISONE 20 MG TABLET PO ONE (20:51)
[2018-01-04 20:52] LABS: LEUKOCYTE ESTERASE,URINE NEGATIVE (NEGATIVE); NITRITE,URINE NEGATIVE (NEGATIVE); PROTEIN,URINE NEGATIVE (NEGATIVE)
[2018-01-04 23:39] VITALS: BP 148/51
--- NOTE | 2018-01-05 10:18 | EKG REPORT ---
SEVERITY:- ABNORMAL ECG - ATRIAL FIBRILLATION BORDERLINE LEFT AXIS DEVIATION PROBABLE ANTEROSEPTAL INFARCT, AGE INDETERM : Confirmed by: Emmanuel Gaytan MD 05-Jan-2018 10:17:55
== END 2018-01-04 21:30 | disposition home or self-care (01) ==
LOC: ER 18:39
DX: J42 Unspecified chronic bronchitis (principal); I48.2 Chronic atrial fibrillation; R07.89 Other chest pain; R05 Cough; R06.02 Shortness of breath; F17.200 Nicotine dependence, unspecified, uncomplicated; I10 Essential (primary) hypertension
CPT/HCPCS: 93005; 99284; 36415; 82553; 82550; 85025; 80053; 81001; 84484; 71045; 93010; A9270 ×2; J7512

== ENCOUNTER 2018-01-15 05:25 | Inpatient (IN) | payer MEDICARE, OTHER ==
[2018-01-15] MEDS ORDERED: IPRATROPIUM/ALBUTEROL 0.5-2.5 MG/3 ML AMPUL NEB ONE (05:34)
[2018-01-15] MEDS ORDERED: NORMAL SALINE 500 ML IV ONE (05:34)
--- NOTE | 2018-01-15 05:37 | ER Document Report ---
Doctor's Note Notes: 01/15/18 05:35 I performed a quick triage evaluation the patient. Patient is a 73-year-old female presents with complaint of difficulty breathing. She arrives via ambulance on CPAP. She has history of COPD and CHF. She has had worsening breathing over last several days. Some intermittent mild chest pain. No fevers. No vomiting. No diarrhea. No leg pain or leg swelling. She says she has been trying breathing treatments at home without much help. Lung auscultation she has coarse rhonchorous breath sounds. I do not hear any rales. She has good peripheral pulses. She was afebrile and animals. Blood pressures currently 90/71. I will give her 500 mL bolus of fluids. Of placed on BiPAP which seems to be controlling her breathing. I will order some DuoNeb treatments. I have also ordered a venous blood gas as well as baseline labs.
[2018-01-15 05:47] LABS: ABSOLUTE BASOPHILS # (AUTO) 0.1 10^3/uL (0.0-0.2); ABSOLUTE EOSINOPHILS # (AUTO) 0.2 10^3/uL (0.0-0.6); ABSOLUTE LYMPHOCYTES (AUTO) 2.6 10^3/uL (0.5-4.7); ABSOLUTE NEUT (AUTO) 18.1 10^3/uL (1.7-8.2); BASOPHILS % (AUTO) 0.3 % (0-2); EOSINOPHILS % (AUTO) 1.1 % (0-6); HEMATOCRIT 37.2 % (36.0-47.0); HEMOGLOBIN 11.7 g/dL (12.0-15.5); LYMPHOCYTES % (AUTO) 11.7 % (13-45); MEAN CORPUSCULAR HEMOGLOBIN 30.8 pg (27.0-33.4); MEAN CORPUSCULAR HGB CONC 31.4 g/dL (32.0-36.0); MEAN CORPUSCULAR VOLUME 98 fl (80-97); MONOCYTES % (AUTO) 4.4 % (3-13); PLATELET COUNT 257 10^3/uL (150-450); RED BLOOD COUNT 3.79 10^6/uL (3.72-5.28); RED CELL DISTRIBUTION WIDTH 15.2 % (11.5-14.0); SEGMENTED NEUTROPHILS % (AUTO) 82.5 % (42-78); TOTAL CELLS COUNTED % (AUTO) 100 %; WHITE BLOOD COUNT 21.9 10^3/uL (4.0-10.5)
[2018-01-15 06:13] LABS: ALANINE AMINOTRANSFERASE 16 U/L (9-52); ALBUMIN 3.9 g/dL (3.5-5.0); ALKALINE PHOSPHATASE 75 U/L (38-126); ANION GAP 10 (5-19); ASPARTATE AMINO TRANSFERASE 24 U/L (14-36); BILIRUBIN,DIRECT 0.2 mg/dL (0.0-0.4); BILIRUBIN,TOTAL 0.2 mg/dL (0.2-1.3); BLOOD UREA NITROGEN 20 mg/dL (7-20); CALCIUM 9.2 mg/dL (8.4-10.2); CARBON DIOXIDE 25 mmol/L (22-30); CHLORIDE 107 mmol/L (98-107); GLUCOSE 176 mg/dL (75-110); POTASSIUM 3.9 mmol/L (3.6-5.0); SODIUM 142.1 mmol/L (137-145); TOTAL PROTEIN 7.3 g/dL (6.3-8.2)
[2018-01-15 06:14] LABS: VENOUS BLOOD HCO3 23.4 mmol/L (20-32); VENOUS BLOOD PCO2 57.2 mmHg (35-63); VENOUS BLOOD PH 7.23 (7.30-7.42)
--- NOTE | 2018-01-15 06:19 | RADIOLOGY REPORT (SQ) ---
EXAM DESCRIPTION: CHEST SINGLE VIEW CLINICAL HISTORY: 73 years Female, dyspnea COMPARISON: 01/04/18. NUMBER OF VIEWS/TECHNIQUE: 1/AP LIMITATIONS: None. FINDINGS: Small patchiness of the left lower lung field, small patchiness of the right lung base, small obscuration/effusion of bilateral costophrenic angles, mild interstitial markings, surgical clips at the right lower hemithorax, mild cardiac enlargement, and atherosclerosis. No pneumothorax. No acute bone defect. IMPRESSION: No significant change.
[2018-01-15 06:26] LABS: NT PRO BNP 1820 pg/mL (5-900)
[2018-01-15 06:29] LABS: TROPONIN I < 0.012 ng/mL
--- NOTE | 2018-01-15 06:41 | ER Document Report ---
ED General - General Mode of Arrival: Medic Information source: Patient, Emergency Med Personnel TRAVEL OUTSIDE OF THE [place] IN LAST 30 DAYS: No - Related Data Home Medications: Symbicort. Spiriva. Latanoprost. Acetazolamide. diltiazem. citalopram. multi-vitamin. atorvastatin. metoprolol. pantoprazole. valsartan. calcium carb. warfarin <TORRI WILLIAM - Last Filed: 01/15/18 09:15> <NGUYEN FRANKLIN - Last Filed: 01/15/18 09:41> - General Chief Complaint: Breathing Difficulty Stated Complaint: DIFFICULTY BREATHING Time Seen by Provider: 01/15/18 05:32 Notes: Patient is a 72 year old female with a history of pneumonia, CHF and COPD presents to emergency department via EMS for difficulty breathing onset 3 days ago. Patients associated symptoms include back pain, intermittent chest pain and a productive cough. Patient states over the last few days her breathing has become progressively worse. Patient confirms use of CPAP and nasal cannula with nursing staff. Patient denies any antibiotic and steroid use at home. EMS transitioned patient on BiPAP and also administered a 500 mL bolus, Solu- Medrol and breathing treatments prior to arrival to emergency department. Patient is on BiPAP at bedside. Patient's PCP is Dr. Morataya. (TORRI WILLIAM) - Related Data Allergies/Adverse Reactions: bee pollen [Bee Pollen] Allergy (Unknown, Verified 01/15/18 08:05) propoxyphene [From Darvocet-N] Allergy (Verified 01/15/18 08:05) venom-wasp [Wasp Venom] Allergy (Verified 01/15/18 08:05) Past Medical History - General Information source: Patient - Social History Smoking Status: Former Smoker Chew tobacco use (# tins/day): No Drug Abuse: None Family History: Reviewed & Not Pertinent, COPD, Hypertension Patient has suicidal ideation: No Patient has homicidal ideation: No - Past Medical History Cardiac Medical History: Reports: Hx Atrial Fibrillation, Hx Congestive Heart Failure, Hx Coronary Artery Disease, Hx Hypercholesterolemia, Hx Hypertension Pulmonary Medical History: Reports: Hx Bronchitis, Hx COPD - stage 3, Hx Pneumonia Malignancy Medical History: Reports: Hx Breast Cancer - right, over 10 years ago GI Medical History: Reports: Hx Ulcer Musculoskeltal Medical History: Reports Hx Arthritis, Reports Hx Musculoskeletal Deformity, Reports Hx Musculoskeletal Trauma Psychiatric Medical History: Reports: Hx Anxiety, Hx Depression Traumatic Medical History: Reports: Hx Fractures Past Surgical History: Reports: Hx Breast Surgery - lumpectomy, needle biopsy - Immunizations Immunizations up to date: Yes Hx Diphtheria, Pertussis, Tetanus Vaccination: Yes <STEWARTTORRI - Last Filed: 01/15/18 09:15> Review of Systems - Review of Systems Constitutional: No symptoms reported EENT: No symptoms reported Cardiovascular: See HPI, Chest pain Respiratory: See HPI, Cough Gastrointestinal: No symptoms reported Genitourinary: No symptoms reported Female Genitourinary: No symptoms reported Musculoskeletal: See HPI, Back pain Skin: No symptoms reported Hematologic/Lymphatic: No symptoms reported Neurological/Psychological: No symptoms reported -: Yes All other systems reviewed and negative <TORRI WILLIAM - Last Filed: 01/15/18 09:15> Physical Exam <TORRI WILLIAM - Last Filed: 01/15/18 09:15> <NGUYEN FRANKLIN - Last Filed: 01/15/18 09:41> - Vital signs Vitals: Pulse Ox 94 01/15/18 05:28 - Notes Notes: GENERAL: Alert, interacts well. On BiPAP. HEAD: Normocephalic, atraumatic. EYES: Pupils equal, round, and reactive to light. Extraocular movements intact. ENT: Oral mucosa moist, tongue midline. NECK: Full range of motion. Supple. Trachea midline. LUNGS: Normal inspiration, diffuse expiratory wheezes. On BiPAP at bedside. HEART: Irregularly irregular. ABDOMEN: Soft, non-tender. Non-distended. Bowel sounds present in all 4 quadrants. EXTREMITIES: Moves all 4 extremities spontaneously. No edema, radial and dorsalis pedis pulses 2/4 bilaterally. No cyanosis. NEUROLOGICAL: Alert and oriented x3. Normal speech. PSYCH: Normal affect, normal mood. SKIN: Warm, dry, normal turgor. No rashes or lesions noted. (TORRI WILLIAM) Course - Laboratory Result Diagrams: 01/15/18 05:30 01/15/18 05:30 <TORRI WILLIAM - Last Filed: 01/15/18 09:15> - Laboratory Result Diagrams: 01/15/18 05:30 01/15/18 05:30 <NGUYEN FRANKLIN - Last Filed: 01/15/18 09:41> - Re-evaluation Re-evalutation: 01/15/18 07:01 Patient arrived and was immediately transitioned to BiPAP, given a gentle 500 mL bolus, breathing treatments were continued, EMS had already given Solu- Medrol and breathing treatments. Patient improved on our BiPAP. CBC showed marked leukocytosis of 21.9 which was significantly increased from 01/04/2018. Mild anemia with hemoglobin 11.7, venous blood gas does show acidosis with pH of 7.23, this is concerning for sepsis, chemistries show elevated glucose at 176 , proBNP is elevated 1820 although her physical examination does not show any rales or pitting edema. Troponin negative at 0.012, chest x-ray shows patchy bibasilar infiltrates that radiology states is unchanged from prior x-ray however her physical examination and laboratory studies have significantly changed so at this point I favor pneumonia. Patient is being treated with cefepime and Levaquin for bibasilar pneumonia given her underlying lung disease. Patient was discussed with Dr. Morataya who agrees to admit the patient to his service in the IMCU in admission status for bibasilar pneumonia and acute hypoxic respiratory failure. (NGUYEN FRANKLIN) - Vital Signs Vital signs: Temp Pulse Resp BP Pulse Ox 98.4 F 21 H 93/63 L 99 01/15/18 05:30 01/15/18 08:01 01/15/18 08:01 01/15/18 08:01 - Laboratory Laboratory results interpreted by me: 01/15/18 01/15/18 01/15/18 05:30 05:30 05:30 WBC 21.9 H Hgb 11.7 L MCV 98 H MCHC 31.4 L RDW 15.2 H Seg Neutrophils % 82.5 H Lymphocytes % 11.7 L Absolute Neutrophils 18.1 H VBG pH Est GFR (Non-Af Amer) 54 L Glucose 176 H NT-Pro-B Natriuret Pep 1820 H 01/15/18 05:30 WBC Hgb MCV MCHC RDW Seg Neutrophils % Lymphocytes % Absolute Neutrophils VBG pH 7.23 L Est GFR (Non-Af Amer) Glucose NT-Pro-B Natriuret Pep - EKG Interpretation by Me Additional EKG results interpreted by me: 01/15/18 07:01 EKG shows atrial fibrillation at rate of 82, left axis deviation, normal intervals, no ST segment elevations or depressions, per my interpretation. ( NGUYEN FRANKLIN) Critical Care Note - Critical Care Note Total time excluding time spent on procedures (mins): 40 <NGUYEN FRANKLIN - Last Filed: 01/15/18 09:41> Discharge <TORRI WILLIAM - Last Filed: 01/15/18 09:15> - Discharge Admitting Provider: [facility] Unit Admitted: IMCU <NGUYEN FRANKLIN - Last Filed: 01/15/18 09:41> - Discharge Clinical Impression: Multifocal pneumonia, Acute and chronic respiratory failure with hypoxia Atrial fibrillation Qualifiers: Atrial fibrillation type: chronic Qualified Code(s): I48.2 - Chronic atrial fibrillation Sepsis Qualifiers: Sepsis type: sepsis due to unspecified organism Qualified Code(s): A41.9 - Sepsis, unspecified organism Condition: Serious Disposition: ADMITTED INPATIENT Scribe Attestation: 01/15/18 09:41 I personally performed the services described in the documentation, reviewed and edited the documentation which was dictated to the scribe in my presence, and it accurately records my words and actions. (NGUYEN FRANKLIN) Scribe Documentation - Scribe Written by Zach:: Zach Villaseñor, 01/15/2018 07:29 acting as scribe for :: Benita <TORRI WILLIAM - Last Filed: 01/15/18 09:15>
[2018-01-15] MEDS ORDERED: CEFEPIME 1 GM/D5W RTU 1 GM/50 ML RTUPB IV ONE ×2 (06:43→22:33)
[2018-01-15] MEDS ORDERED: LEVOFLOXACIN 750 MG/D5W RTU 750 MG/150 ML RTUPB IV ONE (06:43)
[2018-01-15] MEDS ORDERED: FUROSEMIDE INJ/PF 40 MG/4 ML SDV IV ONE (06:53)
[2018-01-15] MEDS ORDERED: NORMAL SALINE 1000 ML 1,000 ML IV ONE (06:54)
--- NOTE | 2018-01-15 07:28 | EKG REPORT ---
SEVERITY:- ABNORMAL ECG - ATRIAL FIBRILLATION, V-RATE 60-112 BORDERLINE LEFT AXIS DEVIATION PROBABLE ANTEROSEPTAL INFARCT, AGE INDETERM LATERAL LEADS ARE ALSO INVOLVED : Confirmed by: Emmanuel Gaytan MD 15-Jan-2018 07:27:42
[2018-01-15 10:42] LABS: INTERNATIONAL RATION (INR) 1.74; PROTHROMBIN TIME 21.2 SEC (11.4-15.4)
[2018-01-15] MEDS: NORMAL SALINE 1000 ML 1,000 ML IV PRN (11:15)
--- NOTE | 2018-01-15 20:22 | PDOC H&P ---
History of Present Illness Admission Date/PCP: 01/15/18 07:26 АНДРЕЙ HERMAN Patient complains of: Difficulty with breathing History of Present Illness: JUNAID VILCHIS is a 73 year old female known to my practice brought o the ED by EMS crew after family activate service due to patient appearing blue and reported no pulse. EMS found her in severe respiratory distress necessitating administration of BiPAP support with supplemental oxygen and IV Solu Medrol administration en route to the ED. Patient reported progressive difficulty with breathing over preceding 3 days with associated productive coughing, intermittent chest pain and back pain with coughing. Her initial ED evaluation did revealed significnat respiratory distress with need for continue BiPAP support IV Lasix administration and antibiotic therapy. Her morbidities include chronic atrial fibrillation, CHF, CAD, Hypertension, Hypercholesterolemia, Oxygen dependent End stage COPD, Anxiety, Hx Depression, osteoarthritis with chronic pain syndrome, and long standing right breast cancer. She was admitted with concern for Pneumonia and exacerbated COPD and possible CHF due to chronic atrial fibrillation with rapid ventricular rate. Past Medical History Cardiac Medical History: Reports: Atrial Fibrillation, Congestive Heart Failure , Coronary Artery Disease, Hyperlipidema, Hypertension Pulmonary Medical History: Reports: Bronchitis, Chronic Obstructive Pulmonary Disease (COPD) - stage 3, Pneumonia Malignancy Medical History: Reports: Breast Cancer - right, over 10 years ago Musculoskeltal Medical History: Reports: Arthritis Psychiatric Medical History: Reports: Depression Social History Smoking Status: Former Smoker Number of Years Smokin Last Time Smoked: 05/08/2017 Frequency of Alcohol Use: None Hx Recreational Drug Use: No Drugs: None Hx Prescription Drug Abuse: No - Advance Directive Resuscitation Status: Full Code - I discussed resusitation staus with patient at bedside and at present she decided to be a full code status. Family History Family History: Reviewed & Not Pertinent, COPD, Hypertension Parental Family History Reviewed: Yes Children Family History Reviewed: Yes Sibling(s) Family History Reviewed.: Yes Medication/Allergy Home Medications: Acetazolamide [Diamox Sequel 500 mg] 500 mg PO DAILY 09/29/17 Albuterol Sulfate [Proair HFA Inhalation Aerosol 8.5 gm MDI] 2 puff PO Q4HP PRN 09/29/17 Atorvastatin Calcium [Lipitor 40 mg Tablet] 40 mg PO QHS 09/29/17 Budesonide/Formoterol Fumarate [Symbicort 160-4.5 Mcg Inhaler] 2 puff PO BID Calcium Carbonate/Vitamin D3 [Oyster Shell 500-Vit D3 200 Tb] 1 tab PO DAILY Citalopram Hydrobromide [Celexa 20 mg Tablet] 20 mg PO DAILY 09/29/17 Diltiazem HCl [Cardizem Cd 120 mg Capsule] 120 mg PO DAILY 09/29/17 Metoprolol Succinate [Toprol Xl 25 mg Tab.sr] 25 mg PO DAILY 09/29/17 Pantoprazole Sodium [Protonix] 40 mg PO DAILY 09/29/17 Tiotropium [place] [Spiriva Handihaler 18 mcg/dose (30 Dose)] 1 cap IH DAILY Valsartan [Diovan 40 mg Tablet] 40 mg PO DAILY 09/29/17 Warfarin Sodium [Coumadin 3 mg Tablet] 3 mg PO QHS 09/29/17 Multivitamin [Tab-A-Vivi (Multiple Vitamin) Tablet] 1 tab PO DAILY 01/15/18 Oxycodone HCl/Acetaminophen [Percocet 7.5-325 mg Tablet] 1 tab PO Q8HP PRN 01/15 Warfarin Sodium [Coumadin 3 mg Tablet] 4.5 mg PO WEFR@2200 01/15/18 Allergies/Adverse Reactions: bee pollen [Bee Pollen] Allergy (Unknown, Verified 01/15/18 08:05) propoxyphene [From Darvocet-N] Allergy (Verified 01/15/18 08:05) venom-wasp [Wasp Venom] Allergy (Verified 01/15/18 08:05) Review of Systems Constitutional: ABSENT: chills, fever(s), headache(s), weight gain, weight loss Eyes: ABSENT: visual disturbances Ears: ABSENT: hearing changes Nose, Mouth, and Throat: ABSENT: as per HPI, headache(s), mouth pain, sore throat, vertigo, other Cardiovascular: PRESENT: chest pain - intermittent and mostly with coughing, dyspnea on exertion, palpitations - occasionally. ABSENT: as per HPI, edema, orthropnea, other Respiratory: PRESENT: cough, dyspnea, sputum. ABSENT: as per HPI, hemoptysis, other Gastrointestinal: ABSENT: abdominal pain, constipation, diarrhea, hematemesis, hematochezia, nausea, vomiting Genitourinary: ABSENT: dysuria, hematuria Musculoskeletal: PRESENT: back pain - related yto chronic pain syndrome and more recently with coughing Integumentary: ABSENT: rash, wounds Neurological: ABSENT: abnormal gait, abnormal speech, confusion, dizziness, focal weakness, syncope Endocrine: ABSENT: cold intolerance, heat intolerance, polydipsia, polyuria Hematologic/Lymphatic: ABSENT: easy bleeding, easy bruising, lymphadenopathy Allergic/Immunologic: ABSENT: seasonal rhinorrhea Physical Exam Vital Signs: Temp Pulse Resp BP Pulse Ox 98.6 F 71 18 94/49 L 98 01/15/18 15:16 01/15/18 15:16 01/15/18 15:16 01/15/18 15:16 01/15/18 15:47 Intake & Output 01/14/18 01/15/18 01/16/18 06:59 06:59 06:59 Intake Total 765 Output Total 325 Balance 440 Weight 44.5 kg General appearance: PRESENT: mild distress - remain on supplemental oxyygen via nasal cannula, thin Head exam: PRESENT: atraumatic, normocephalic Eye exam: PRESENT: conjunctiva pink, EOMI, PERRLA. ABSENT: scleral icterus Mouth exam: PRESENT: moist Teeth exam: PRESENT: poor dentation Throat exam: ABSENT: post pharyngeal erythema, tonsillar erythema, tonsillar exudate, tonsillogmegaly, other Neck exam: PRESENT: full ROM. ABSENT: carotid bruit, JVD, lymphadenopathy, thyromegaly Respiratory exam: PRESENT: decreased breath sounds - at lung basea, rhonchi - scattered Cardiovascular exam: PRESENT: irregular rhythm. ABSENT: diastolic murmur, rubs , systolic murmur Pulses: PRESENT: +1 pedal pulses bilateral Vascular exam: PRESENT: normal capillary refill. ABSENT: pallor GI/Abdominal exam: PRESENT: normal bowel sounds, soft. ABSENT: distended, guarding, mass, organolmegaly, rebound, tenderness Rectal exam: PRESENT: deferred Extremities exam: ABSENT: pedal edema Musculoskeletal exam: PRESENT: deformity - related to multiple joint involvement with arthritis and thoracic kyphosis Neurological exam: PRESENT: alert, awake, oriented to person, oriented to place , oriented to time, oriented to situation, CN II-XII grossly intact. ABSENT: motor sensory deficit Psychiatric exam: PRESENT: appropriate affect, normal mood. ABSENT: homicidal ideation, suicidal ideation Skin exam: PRESENT: dry, intact, warm. ABSENT: cyanosis, rash Results Laboratory Results: I reviewed her lab results on NSC and form significant part of my medical decision making. Impressions: Chest X-Ray 01/15/18 05:32 IMPRESSION: No significant change. Assessment & Plan - Diagnosis (1) COPD with exacerbation Is this a current diagnosis for this admission?: Yes Plan: See admitting attending physician orders. (2) Acute and chronic respiratory failure with hypoxia Is this a current diagnosis for this admission?: Yes Plan: See admitting attending physician orders. (3) Multifocal pneumonia Is this a current diagnosis for this admission?: Yes Plan: See admitting attending physician orders. (5) Chronic diastolic CHF (congestive heart failure) Is this a current diagnosis for this admission?: Yes Plan: See admitting attending physician orders. - Time Time Spent: 50 to 70 Minutes Medications reviewed and adjusted accordingly: Yes Anticipated discharge: Home with Homehealth Within: Other - Inpatient Certification Based on my medical assessment, after consideration of the patient's comorbidities, presenting symptoms, or acuity I expect that the services needed warrant INPATIENT care.: Yes I certify that my determination is in accordance with my understanding of Medicare's requirements for reasonable and necessary INPATIENT services [42 CFR 412.3e].: Yes Medical Necessity: Need Close Monitoring Due to Risk of Patient Decompensation, Need For IV Fluids, Need For Continuous Telemetry Monitoring, Need for Nebulizer Therapy and Monitoring of Response, Need for IV Antibiotics, Risk of Complication if Not Cared For in Hospital Post Hospital Care: D/C Supervisor Polishing Documentation - Plan Summary Plan Summary: See admitting attending physician orders.
[2018-01-15] MEDS ORDERED: WARFARIN SODIUM 3 MG TABLET PO SCH (22:00)
[2018-01-15] MEDS ORDERED: (PENDING PHARMACY ID) (Warfarin Sodium 3 MG) PO SCH ×2 (22:00)
[2018-01-15] MEDS: ATORVASTATIN CALCIUM 40 MG TABLET PO SCH (22:15)
[2018-01-15] MEDS: WARFARIN SODIUM 3 MG TABLET PO SCH (22:16)
[2018-01-15] MEDS: CEFEPIME 1 GM/D5W RTU 1 GM/50 ML RTUPB IV SCH (23:02)
[2018-01-15] MEDS: ACETAMINOPHEN 325 MG TABLET PO PRN (23:28)
[2018-01-16] MEDS: ACETAMINOPHEN 325 MG TABLET PO PRN ×3 (05:33→23:58)
[2018-01-16] MEDS: LANSOPRAZOLE 30 MG TAB.RAP.DR PO SCH (05:34)
[2018-01-16] MEDS: NORMAL SALINE 1000 ML 1,000 ML IV PRN ×2 (05:35→21:52)
[2018-01-16 05:53] LABS: HEMATOCRIT 33.1 % (36.0-47.0); HEMOGLOBIN 10.5 g/dL (12.0-15.5); MEAN CORPUSCULAR HEMOGLOBIN 30.5 pg (27.0-33.4); MEAN CORPUSCULAR HGB CONC 31.8 g/dL (32.0-36.0); MEAN CORPUSCULAR VOLUME 96 fl (80-97); PLATELET COUNT 203 10^3/uL (150-450); RED BLOOD COUNT 3.45 10^6/uL (3.72-5.28); RED CELL DISTRIBUTION WIDTH 14.7 % (11.5-14.0); WHITE BLOOD COUNT 20.9 10^3/uL (4.0-10.5)
[2018-01-16 06:01] LABS: INTERNATIONAL RATION (INR) 2.24; PROTHROMBIN TIME 25.9 SEC (11.4-15.4)
[2018-01-16 06:23] LABS: ABSOLUTE MONOCYTES # (MANUAL) 0.6 10^3/uL (0.1-1.4); ABSOLUTE NEUTROPHILS# (MANUAL) 20.3 10^3/uL (1.7-8.2); BASOPHILS % (MANUAL) 0 % (0-2); EOSINOPHILS % (MANUAL) 0 % (0-6); LYMPHOCYTES % (MANUAL) 0 % (13-45); MONOCYTES % (MANUAL) 3 % (3-13); SEGMENTED NEUTROPHILS % (MAN) 97 % (42-78); TOTAL CELLS COUNTED 100
[2018-01-16 06:24] LABS: OVALOCYTES SLIGHT; PLATELET COMMENT ADEQUATE; POIKILOCYTOSIS SLIGHT
[2018-01-16 06:26] LABS: ALANINE AMINOTRANSFERASE 28 U/L (9-52); ALBUMIN 3.2 g/dL (3.5-5.0); ALKALINE PHOSPHATASE 61 U/L (38-126); ANION GAP 11 (5-19); ASPARTATE AMINO TRANSFERASE 20 U/L (14-36); BILIRUBIN,DIRECT 0.3 mg/dL (0.0-0.4); BILIRUBIN,TOTAL 0.3 mg/dL (0.2-1.3); BLOOD UREA NITROGEN 17 mg/dL (7-20); CALCIUM 9.1 mg/dL (8.4-10.2); CARBON DIOXIDE 24 mmol/L (22-30); CHLORIDE 110 mmol/L (98-107); GLUCOSE 155 mg/dL (75-110); POTASSIUM 3.7 mmol/L (3.6-5.0); SODIUM 145.2 mmol/L (137-145); TOTAL PROTEIN 5.9 g/dL (6.3-8.2)
[2018-01-16] MEDS ORDERED: (PENDING PHARMACY ID) (Calcium Carbonate/Vitamin D3 [Oyster Shell 500-Vit D3 200 Tb] 1 TAB PO SCH (10:00)
[2018-01-16] MEDS: METOPROLOL SUCCINATE 25 MG TAB.SR.24H PO SCH (10:07)
[2018-01-16] MEDS: DILTIAZEM HCL 120 MG CAP.SR.24H PO SCH (10:07)
[2018-01-16] MEDS: CITALOPRAM HYDROBROMIDE 20 MG TABLET PO SCH (10:08)
[2018-01-16] MEDS: VALSARTAN 40 MG TABLET PO SCH (10:08)
[2018-01-16] MEDS: MULTIVITAMIN TABLET PO SCH (10:08)
[2018-01-16] MEDS: CALCIUM CARBONATE 250 MG/VITAMIN D3 125 UNIT TABLET PO SCH (10:08)
[2018-01-16] MEDS: ACETAZOLAMIDE 500 MG CAPSULE.SA PO SCH (10:08)
[2018-01-16] MEDS: CEFEPIME 1 GM/D5W RTU 1 GM/50 ML RTUPB IV SCH ×2 (10:08→21:51)
[2018-01-16] MEDS: LEVOFLOXACIN 500 MG/D5W RTU 500 MG/100 ML RTUPB IV SCH (10:08)
[2018-01-16] MEDS: TIOTROPIUM BROMIDE DPI 5 CAP/KIT (18 MCG/CAP) IH SCH (10:09)
--- NOTE | 2018-01-16 19:44 | PDOC PROGRESS REPORT ---
Subjective Progress Note for:: 01/16/18 Subjective:: Breathing is improving. Oxygen supplementation down to 2L/min. No chest pain. No nausea, vomiting or abdominal pain. No fever or chills. Reason For Visit: PNEUMONIA, COPD EXACERBATION Physical Exam Vital Signs: Temp Pulse Resp BP Pulse Ox 98.4 F 77 14 148/54 H 94 01/16/18 15:48 01/16/18 15:48 01/16/18 15:48 01/16/18 15:48 01/16/18 16:02 Intake & Output 01/15/18 01/16/18 01/17/18 06:59 06:59 06:59 Intake Total 2415 1500 Output Total 325 Balance 2089 1500 Weight 44.5 kg General appearance: PRESENT: mild distress - on supplemental oxygen via nasal cannula., thin Head exam: PRESENT: atraumatic, normocephalic Eye exam: PRESENT: conjunctiva pink, EOMI, PERRLA. ABSENT: scleral icterus Mouth exam: PRESENT: moist Teeth exam: PRESENT: poor dentation Respiratory exam: PRESENT: decreased breath sounds - at lung bases, rhonchi - minimal scattered bilaterally. Cardiovascular exam: PRESENT: RRR. ABSENT: diastolic murmur, rubs, systolic murmur Vascular exam: PRESENT: normal capillary refill. ABSENT: pallor GI/Abdominal exam: PRESENT: normal bowel sounds, soft. ABSENT: distended, guarding, mass, organolmegaly, rebound, tenderness Extremities exam: ABSENT: pedal edema Musculoskeletal exam: PRESENT: deformity - related to arthritis Neurological exam: PRESENT: alert, awake, oriented to person, oriented to place , oriented to time, oriented to situation, CN II-XII grossly intact. ABSENT: motor sensory deficit Psychiatric exam: PRESENT: appropriate affect, normal mood. ABSENT: homicidal ideation, suicidal ideation Skin exam: PRESENT: dry, intact, warm. ABSENT: cyanosis, rash Results Laboratory Results: 01/16/18 05:29 01/16/18 05:29 01/16/18 01/16/18 05:29 05:29 WBC 20.9 H RBC 3.45 L Hgb 10.5 L Hct 33.1 L MCV 96 MCH 30.5 MCHC 31.8 L RDW 14.7 H Plt Count 203 Seg Neutrophils % Not Reportable Lymphocytes % Not Reportable Monocytes % Not Reportable Eosinophils % Not Reportable Basophils % Not Reportable Absolute Neutrophils Not Reportable Absolute Lymphocytes Not Reportable Absolute Monocytes Not Reportable Absolute Eosinophils Not Reportable Absolute Basophils Not Reportable Sodium 145.2 H Potassium 3.7 Chloride 110 H Carbon Dioxide 24 Anion Gap 11 BUN 17 Creatinine 0.79 Est GFR ( Amer) > 60 Est GFR (Non-Af Amer) > 60 Glucose 155 H Calcium 9.1 Total Bilirubin 0.3 AST 20 ALT 28 Alkaline Phosphatase 61 Total Protein 5.9 L Albumin 3.2 L Impressions: Chest X-Ray 01/15/18 05:32 IMPRESSION: No significant change. Assessment & Plan - Diagnosis (1) COPD with exacerbation Is this a current diagnosis for this admission?: Yes (2) Acute and chronic respiratory failure with hypoxia Is this a current diagnosis for this admission?: Yes (3) Multifocal pneumonia Is this a current diagnosis for this admission?: Yes (5) Chronic diastolic CHF (congestive heart failure) Is this a current diagnosis for this admission?: Yes - Time Time Spent with patient: 25-34 minutes Medications reviewed and adjusted accordingly: Yes Anticipated discharge: Home Within: Other - Inpatient Certification Based on my medical assessment, after consideration of the patient's comorbidities, presenting symptoms, or acuity I expect that the services needed warrant INPATIENT care.: Yes I certify that my determination is in accordance with my understanding of Medicare's requirements for reasonable and necessary INPATIENT services [42 CFR 412.3e].: Yes Medical Necessity: Need Close Monitoring Due to Risk of Patient Decompensation, Need For Continuous Telemetry Monitoring, Need for IV Antibiotics, Risk of Complication if Not Cared For in Hospital Post Hospital Care: D/C Beef Splitter Documentation - Plan Summary Plan Summary: Continue all current medication management. Obtain CBC with diff, BMP in AM.
[2018-01-16] MEDS ORDERED: IPRATROPIUM/ALBUTEROL 0.5-2.5 MG/3 ML AMPUL NEB PRN (19:48)
[2018-01-16] MEDS: BUDESONIDE/FORMOTEROL 160-4.5 MCG 60 PUFF/6 GM MDI IH SCH (21:50)
[2018-01-16] MEDS: ATORVASTATIN CALCIUM 40 MG TABLET PO SCH (21:50)
[2018-01-16] MEDS: WARFARIN SODIUM 3 MG TABLET PO SCH (21:50)
[2018-01-16] MEDS: LATANOPROST 0.005% OPH SOLN 2.5 ML OU SCH (21:51)
[2018-01-16] MEDS ORDERED: WARFARIN SODIUM 4.5 MG PO SCH ×2 (22:00)
[2018-01-17 05:09] LABS: ABSOLUTE BASOPHILS # (AUTO) 0.2 10^3/uL (0.0-0.2); ABSOLUTE LYMPHOCYTES (AUTO) 1.3 10^3/uL (0.5-4.7); ABSOLUTE MONOCYTES (AUTO) 0.9 10^3/uL (0.1-1.4); BASOPHILS % (AUTO) 1.1 % (0-2); EOSINOPHILS % (AUTO) 0.1 % (0-6); HEMOGLOBIN 10.7 g/dL (12.0-15.5); LYMPHOCYTES % (AUTO) 6.9 % (13-45); MEAN CORPUSCULAR HEMOGLOBIN 30.4 pg (27.0-33.4); MEAN CORPUSCULAR HGB CONC 31.5 g/dL (32.0-36.0); MEAN CORPUSCULAR VOLUME 97 fl (80-97); MONOCYTES % (AUTO) 5.1 % (3-13); PLATELET COUNT 228 10^3/uL (150-450); RED BLOOD COUNT 3.51 10^6/uL (3.72-5.28); RED CELL DISTRIBUTION WIDTH 14.9 % (11.5-14.0); SEGMENTED NEUTROPHILS % (AUTO) 86.8 % (42-78); TOTAL CELLS COUNTED % (AUTO) 100 %; WHITE BLOOD COUNT 18.4 10^3/uL (4.0-10.5)
[2018-01-17] MEDS: ACETAMINOPHEN 325 MG TABLET PO PRN ×3 (05:22→22:06)
[2018-01-17] MEDS: LANSOPRAZOLE 30 MG TAB.RAP.DR PO SCH (05:22)
[2018-01-17 05:42] LABS: ANION GAP 12 (5-19); BLOOD UREA NITROGEN 18 mg/dL (7-20); CALCIUM 9.5 mg/dL (8.4-10.2); CARBON DIOXIDE 24 mmol/L (22-30); CHLORIDE 112 mmol/L (98-107); GLUCOSE 97 mg/dL (75-110); POTASSIUM 3.3 mmol/L (3.6-5.0); SODIUM 147.8 mmol/L (137-145)
[2018-01-17] MEDS: LEVOFLOXACIN 500 MG/D5W RTU 500 MG/100 ML RTUPB IV SCH (09:21)
[2018-01-17] MEDS: MULTIVITAMIN TABLET PO SCH (09:22)
[2018-01-17] MEDS: VALSARTAN 40 MG TABLET PO SCH (09:22)
[2018-01-17] MEDS: ACETAZOLAMIDE 500 MG CAPSULE.SA PO SCH (09:22)
[2018-01-17] MEDS: CITALOPRAM HYDROBROMIDE 20 MG TABLET PO SCH (09:22)
[2018-01-17] MEDS: CALCIUM CARBONATE 250 MG/VITAMIN D3 125 UNIT TABLET PO SCH (09:22)
[2018-01-17] MEDS: METOPROLOL SUCCINATE 25 MG TAB.SR.24H PO SCH (09:23)
[2018-01-17] MEDS: DILTIAZEM HCL 120 MG CAP.SR.24H PO SCH (09:23)
[2018-01-17] MEDS: TIOTROPIUM BROMIDE DPI 5 CAP/KIT (18 MCG/CAP) IH SCH (09:25)
[2018-01-17] MEDS: BUDESONIDE/FORMOTEROL 160-4.5 MCG 60 PUFF/6 GM MDI IH SCH ×2 (09:26→21:55)
[2018-01-17] MEDS: CEFEPIME 1 GM/D5W RTU 1 GM/50 ML RTUPB IV SCH ×2 (10:28→21:57)
--- NOTE | 2018-01-17 15:00 | Physician Advisory Note ---
Physician Advisor ProgressNote .: Pursuant to the plan for [place], I have reviewed the medical record for this patient. Physician Advisor Statement: Nice documentation of chronic diastolic CHF. Please consider documenting, if you agree: 1. "Pneumonia, suspect gram-___ type, evidenced by " [so far, have documented SOB, CP, cough/sputum, tachypnea, tachycardia, leukocytosis, CXR w/ BLL infiltrates that are without change from findings in Sep 2017] - Please document if there have been any fevers, chills, NEW RADIOGRAPHIC findings, or NEW LUNG EXAM FINDINGS, or any other findings that make you suspect acute pneumonia as opposed to, say, acute bronchitis, to point to if payer doesn't want to acknowledge this diagnosis. Also: what do you believe is the reason the initial CXR shows no new findings in this case? Documenting this reasoning supports your diagnoses. 2. "Severe pulmonary hypertension" & "chronic interstitial lung disease" - [vs scarring] - per CT 09/29/17, ECHO 06/2017 3. How much O2 does she usually need at baseline? (to support dx of Ac Resp Failure) 4. "Acute hypernatremia, suspect due to " 5. "underweight with protein-calorie malnutrition [state mild, mod, or severe] with BMI 18.5, ____[?wt loss, ?appetite loss, ]" [if possible, give specifics on intake, wt loss, loss of SQ fat & muscle mass , diminished hand stitch wheeler strength, & clinical importance such as (A) nutritional assessment ordered, (B) modified diet or supplements ordered, (C) additional labs ordered, (D) prolonged wound healing time, (E) delayed infxn clearance] 6. "Sepsis was ruled out" OR "Possible sepsis, present on admission, due to Pneumonia, evidenced by ___" [tachycardia, tachypnea, hypotension w/MAP 60s & BP down to 76/65, WBC 21.9, acute acidosis, Acute Respiratory Failure, ...] Thanks! CK
--- NOTE | 2018-01-17 19:01 | PDOC PROGRESS REPORT ---
Subjective Progress Note for:: 01/17/18 Subjective:: Patient reported episodes of chills and subsequent diaphoresis over last two days and prior to admission. There is persistent cough with minimal sputum production Breathing is improving. Oxygen supplementation down to 2L/min. She reported been on 1.5L/min at home and mostly use supplemental oxygen while sleeping. She is on AVAPS machine at home. No chest pain. No nausea, vomiting or abdominal pain. She remain on IV Levofloxacin and Cefepime coverage. Reason For Visit: PNEUMONIA, COPD EXACERBATION Physical Exam Vital Signs: Temp Pulse Resp BP Pulse Ox 98.3 F 67 16 140/52 H 99 01/17/18 15:53 01/17/18 15:53 01/17/18 15:53 01/17/18 15:53 01/17/18 15:53 Intake & Output 01/16/18 01/17/18 01/18/18 06:59 06:59 06:59 Intake Total 2415 2822 200 Output Total 325 Balance 2090 2822 200 Weight 44.5 kg General appearance: PRESENT: mild distress - on supplemental oxygen at 2L/min via nasal cannula, thin Head exam: PRESENT: atraumatic, normocephalic Eye exam: PRESENT: conjunctiva pink, EOMI, PERRLA. ABSENT: scleral icterus Mouth exam: PRESENT: moist Teeth exam: PRESENT: poor dentation Respiratory exam: PRESENT: decreased breath sounds, rhonchi Cardiovascular exam: PRESENT: RRR. ABSENT: diastolic murmur, rubs, systolic murmur Vascular exam: PRESENT: normal capillary refill. ABSENT: pallor GI/Abdominal exam: PRESENT: normal bowel sounds, soft. ABSENT: distended, guarding, mass, organolmegaly, rebound, tenderness Extremities exam: ABSENT: pedal edema Musculoskeletal exam: PRESENT: deformity - related to multiple joints involvement with arthritis. ABSENT: tenderness Neurological exam: PRESENT: alert, awake, oriented to person, oriented to place , oriented to time, oriented to situation, CN II-XII grossly intact. ABSENT: motor sensory deficit Psychiatric exam: PRESENT: appropriate affect, normal mood. ABSENT: homicidal ideation, suicidal ideation Skin exam: PRESENT: dry, warm Results Laboratory Results: 01/17/18 04:19 01/17/18 04:19 01/17/18 01/17/18 04:19 04:19 WBC 18.4 H RBC 3.51 L Hgb 10.7 L Hct 34.0 L MCV 97 MCH 30.4 MCHC 31.5 L RDW 14.9 H Plt Count 228 Seg Neutrophils % 86.8 H Lymphocytes % 6.9 L Monocytes % 5.1 Eosinophils % 0.1 Basophils % 1.1 Absolute Neutrophils 16.0 H Absolute Lymphocytes 1.3 Absolute Monocytes 0.9 Absolute Eosinophils 0.0 Absolute Basophils 0.2 Sodium 147.8 H Potassium 3.3 L Chloride 112 H Carbon Dioxide 24 Anion Gap 12 BUN 18 Creatinine 0.85 Est GFR ( Amer) > 60 Est GFR (Non-Af Amer) > 60 Glucose 97 Calcium 9.5 Impressions: Chest X-Ray 01/15/18 05:32 IMPRESSION: No significant change. Assessment & Plan - Diagnosis (1) COPD with exacerbation Is this a current diagnosis for this admission?: Yes (2) Acute and chronic respiratory failure with hypoxia Is this a current diagnosis for this admission?: Yes (3) Multifocal pneumonia Is this a current diagnosis for this admission?: Yes (5) Chronic diastolic CHF (congestive heart failure) Is this a current diagnosis for this admission?: Yes - Time Time Spent with patient: 25-34 minutes Medications reviewed and adjusted accordingly: Yes Anticipated discharge: Home with Homehealth Within: Other - Inpatient Certification Based on my medical assessment, after consideration of the patient's comorbidities, presenting symptoms, or acuity I expect that the services needed warrant INPATIENT care.: Yes I certify that my determination is in accordance with my understanding of Medicare's requirements for reasonable and necessary INPATIENT services [42 CFR 412.3e].: Yes Medical Necessity: Need Close Monitoring Due to Risk of Patient Decompensation, Need For IV Fluids, Need For Continuous Telemetry Monitoring, Need for Nebulizer Therapy and Monitoring of Response, Need for IV Antibiotics, Risk of Complication if Not Cared For in Hospital Post Hospital Care: D/C Torch Operator 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 Overall prognosis remain guarded due to her end stage lung disease.
[2018-01-17] MEDS: WARFARIN SODIUM 3 MG TABLET PO SCH (21:55)
[2018-01-17] MEDS: POTASSIUM CHLORIDE 10 MEQ TABLET.SA PO SCH (21:56)
[2018-01-17] MEDS: ATORVASTATIN CALCIUM 40 MG TABLET PO SCH (21:56)
[2018-01-17] MEDS: NORMAL SALINE 1000 ML 1,000 ML IV PRN (21:59)
[2018-01-17] MEDS: LATANOPROST 0.005% OPH SOLN 2.5 ML OU SCH (22:00)
[2018-01-18] MEDS: POTASSIUM CHLORIDE 10 MEQ TABLET.SA PO SCH (02:58)
[2018-01-18 04:59] LABS: ABSOLUTE EOSINOPHILS # (AUTO) 0.1 10^3/uL (0.0-0.6); ABSOLUTE LYMPHOCYTES (AUTO) 1.3 10^3/uL (0.5-4.7); ABSOLUTE MONOCYTES (AUTO) 0.9 10^3/uL (0.1-1.4); ABSOLUTE NEUT (AUTO) 9.8 10^3/uL (1.7-8.2); BASOPHILS % (AUTO) 0.2 % (0-2); EOSINOPHILS % (AUTO) 1.1 % (0-6); HEMATOCRIT 34.4 % (36.0-47.0); LYMPHOCYTES % (AUTO) 10.5 % (13-45); MEAN CORPUSCULAR HEMOGLOBIN 30.8 pg (27.0-33.4); MEAN CORPUSCULAR VOLUME 96 fl (80-97); MONOCYTES % (AUTO) 7.4 % (3-13); PLATELET COUNT 221 10^3/uL (150-450); RED BLOOD COUNT 3.58 10^6/uL (3.72-5.28); RED CELL DISTRIBUTION WIDTH 14.8 % (11.5-14.0); SEGMENTED NEUTROPHILS % (AUTO) 80.8 % (42-78); TOTAL CELLS COUNTED % (AUTO) 100 %; WHITE BLOOD COUNT 12.1 10^3/uL (4.0-10.5)
[2018-01-18 05:15] LABS: ANION GAP 11 (5-19); BLOOD UREA NITROGEN 14 mg/dL (7-20); CALCIUM 9.1 mg/dL (8.4-10.2); CARBON DIOXIDE 24 mmol/L (22-30); CHLORIDE 112 mmol/L (98-107); GLUCOSE 98 mg/dL (75-110); SODIUM 146.8 mmol/L (137-145)
[2018-01-18 05:24] LABS: INTERNATIONAL RATION (INR) 2.84; PROTHROMBIN TIME 31.2 SEC (11.4-15.4)
[2018-01-18] MEDS: ACETAMINOPHEN 325 MG TABLET PO PRN ×2 (05:25→20:07)
[2018-01-18] MEDS: LANSOPRAZOLE 30 MG TAB.RAP.DR PO SCH (05:25)
[2018-01-18] MEDS: METOPROLOL SUCCINATE 25 MG TAB.SR.24H PO SCH (09:53)
[2018-01-18] MEDS: CITALOPRAM HYDROBROMIDE 20 MG TABLET PO SCH (09:53)
[2018-01-18] MEDS: MULTIVITAMIN TABLET PO SCH (09:53)
[2018-01-18] MEDS: ACETAZOLAMIDE 500 MG CAPSULE.SA PO SCH (09:54)
[2018-01-18] MEDS: CALCIUM CARBONATE 250 MG/VITAMIN D3 125 UNIT TABLET PO SCH (09:54)
[2018-01-18] MEDS: VALSARTAN 40 MG TABLET PO SCH (09:54)
[2018-01-18] MEDS: DILTIAZEM HCL 120 MG CAP.SR.24H PO SCH (09:54)
[2018-01-18] MEDS: LEVOFLOXACIN 500 MG/D5W RTU 500 MG/100 ML RTUPB IV SCH (09:54)
[2018-01-18] MEDS: BUDESONIDE/FORMOTEROL 160-4.5 MCG 60 PUFF/6 GM MDI IH SCH ×2 (09:55→21:19)
[2018-01-18] MEDS: TIOTROPIUM BROMIDE DPI 5 CAP/KIT (18 MCG/CAP) IH SCH (09:55)
[2018-01-18] MEDS: CEFEPIME 1 GM/D5W RTU 1 GM/50 ML RTUPB IV SCH ×2 (11:26→21:19)
--- NOTE | 2018-01-18 15:52 | PDOC PROGRESS REPORT ---
Subjective Progress Note for:: 01/18/18 Subjective:: Patient reported episodes diarrhea today. No nausea, vomiting or abdominal pain. Breathing at baseline. No chest pain. She remain on IV Cefepime and oral Levofloxacin coverage. No fever or chills. Reason For Visit: PNEUMONIA, COPD EXACERBATION Physical Exam Vital Signs: Temp Pulse Resp BP Pulse Ox 98.2 F 84 14 133/55 H 98 01/18/18 12:47 01/18/18 14:00 01/18/18 07:32 01/18/18 12:47 01/18/18 12:47 Intake & Output 01/17/18 01/18/18 01/19/18 06:59 06:59 06:59 Intake Total 2822 2787 325 Output Total 0 Balance 2822 2787 325 Weight 44.2 kg Physical Exam: General appearance: PRESENT: mild distress - on supplemental oxygen at 2L/min via nasal cannula, thin Head exam: PRESENT: atraumatic, normocephalic Eye exam: PRESENT: conjunctiva pink, EOMI, PERRLA. ABSENT: scleral icterus Mouth exam: PRESENT: moist Teeth exam: PRESENT: poor dentition Respiratory exam: PRESENT: decreased breath sounds, rhonchi Cardiovascular exam: PRESENT: RRR. ABSENT: diastolic murmur, rubs, systolic murmur GI/Abdominal exam: PRESENT: normal bowel sounds, soft. ABSENT: distended, guarding, mass, organomegaly, rebound, tenderness Extremities exam: ABSENT: pedal edema Musculoskeletal exam: PRESENT: deformity - related to multiple joints involvement with arthritis. ABSENT: tenderness Neurological exam: PRESENT: alert, awake, oriented to person, oriented to place , oriented to time, oriented to situation, CN II-XII grossly intact. ABSENT: motor sensory deficit Psychiatric exam: PRESENT: appropriate affect, normal mood. ABSENT: homicidal ideation, suicidal ideation Skin exam: PRESENT: dry, warm Results Laboratory Results: 01/18/18 04:04 01/18/18 04:04 01/17/18 01/18/18 01/18/18 04:19 04:04 04:04 WBC 12.1 H RBC 3.58 L Hgb 11.0 L Hct 34.4 L MCV 96 MCH 30.8 MCHC 32.0 RDW 14.8 H Plt Count 221 Seg Neutrophils % 80.8 H Lymphocytes % 10.5 L Monocytes % 7.4 Eosinophils % 1.1 Basophils % 0.2 Absolute Neutrophils 9.8 H Absolute Lymphocytes 1.3 Absolute Monocytes 0.9 Absolute Eosinophils 0.1 Absolute Basophils 0.0 Sodium 146.8 H Potassium 4.0 Chloride 112 H Carbon Dioxide 24 Anion Gap 11 BUN 14 Creatinine 0.82 Est GFR ( Amer) > 60 Est GFR (Non-Af Amer) > 60 Glucose 98 Calcium 9.1 Magnesium 1.8 Impressions: Chest X-Ray 01/15/18 05:32 IMPRESSION: No significant change. Assessment & Plan - Diagnosis (1) COPD with exacerbation Is this a current diagnosis for this admission?: Yes (2) Acute and chronic respiratory failure with hypoxia Is this a current diagnosis for this admission?: Yes (3) Multifocal pneumonia Is this a current diagnosis for this admission?: Yes (5) Chronic diastolic CHF (congestive heart failure) Is this a current diagnosis for this admission?: Yes - Time Time Spent with patient: 25-34 minutes - Inpatient Certification Based on my medical assessment, after consideration of the patient's comorbidities, presenting symptoms, or acuity I expect that the services needed warrant INPATIENT care.: Yes I certify that my determination is in accordance with my understanding of Medicare's requirements for reasonable and necessary INPATIENT services [42 CFR 412.3e].: Yes Medical Necessity: Need Close Monitoring Due to Risk of Patient Decompensation, Need For IV Fluids, Need For Continuous Telemetry Monitoring, Need for Nebulizer Therapy and Monitoring of Response, Need for IV Antibiotics, Risk of Complication if Not Cared For in Hospital Post Hospital Care: D/C Manager Custom Documentation - Plan Summary Plan Summary: Continue on current medication management. Stool C.Difficile is negative. Monitor clinical indices for infection and follow up on pending results of blod and sputum culture.
[2018-01-18] MEDS: ATORVASTATIN CALCIUM 40 MG TABLET PO SCH (21:21)
[2018-01-18] MEDS: LATANOPROST 0.005% OPH SOLN 2.5 ML OU SCH (21:23)
[2018-01-18] MEDS: WARFARIN SODIUM 3 MG TABLET PO SCH (21:23)
[2018-01-19] MEDS: LANSOPRAZOLE 30 MG TAB.RAP.DR PO SCH (05:16)
[2018-01-19 05:41] LABS: INTERNATIONAL RATION (INR) 2.56; PROTHROMBIN TIME 28.7 SEC (11.4-15.4)
[2018-01-19] MEDS: DILTIAZEM HCL 120 MG CAP.SR.24H PO SCH (09:14)
[2018-01-19] MEDS: MULTIVITAMIN TABLET PO SCH (09:14)
[2018-01-19] MEDS: CITALOPRAM HYDROBROMIDE 20 MG TABLET PO SCH (09:14)
[2018-01-19] MEDS: CALCIUM CARBONATE 250 MG/VITAMIN D3 125 UNIT TABLET PO SCH (09:14)
[2018-01-19] MEDS: METOPROLOL SUCCINATE 25 MG TAB.SR.24H PO SCH (09:14)
[2018-01-19] MEDS: VALSARTAN 40 MG TABLET PO SCH (09:14)
[2018-01-19] MEDS: LEVOFLOXACIN 500 MG TABLET PO SCH (09:15)
[2018-01-19] MEDS: CEFEPIME 1 GM/D5W RTU 1 GM/50 ML RTUPB IV SCH ×2 (09:15→21:50)
[2018-01-19] MEDS: ACETAZOLAMIDE 500 MG CAPSULE.SA PO SCH (09:15)
[2018-01-19] MEDS: TIOTROPIUM BROMIDE DPI 5 CAP/KIT (18 MCG/CAP) IH SCH (09:16)
[2018-01-19] MEDS: BUDESONIDE/FORMOTEROL 160-4.5 MCG 60 PUFF/6 GM MDI IH SCH ×2 (09:16→21:51)
--- NOTE | 2018-01-19 13:06 | PDOC PROGRESS REPORT ---
Subjective Progress Note for:: 01/19/18 Subjective:: She was admitted for the management of multifocal pneumonia, COPD, she was seen by the bedside, she has no new complaint today Reason For Visit: PNEUMONIA, COPD EXACERBATION Physical Exam Vital Signs: Temp Pulse Resp BP Pulse Ox 98.0 F 71 17 110/48 L 96 01/19/18 12:05 01/19/18 12:05 01/19/18 12:05 01/19/18 12:05 01/19/18 12:05 Intake & Output 01/18/18 01/19/18 01/20/18 06:59 06:59 06:59 Intake Total 2787 610 150 Output Total 0 Balance 2787 610 150 Weight 44.2 kg 43.6 kg General appearance: PRESENT: no acute distress Eye exam: PRESENT: PERRLA Respiratory exam: PRESENT: rhonchi Cardiovascular exam: PRESENT: +S1, +S2 GI/Abdominal exam: PRESENT: soft Neurological exam: PRESENT: alert, CN II-XII grossly intact Results Laboratory Results: 01/18/18 04:04 01/18/18 04:04 Impressions: Chest X-Ray 01/15/18 05:32 IMPRESSION: No significant change. Assessment & Plan - Diagnosis (1) Acute and chronic respiratory failure ([id number]) Qualifiers: Respiratory failure complication: hypercapnia Qualified Code(s): J96.22 - Acute and chronic respiratory failure with hypercapnia Is this a current diagnosis for this admission?: Yes (2) COPD with acute exacerbation Is this a current diagnosis for this admission?: Yes (3) Multifocal pneumonia Is this a current diagnosis for this admission?: Yes - Plan Summary Plan Summary: Continue treatment
[2018-01-19] MEDS: ACETAMINOPHEN 325 MG TABLET PO PRN (18:46)
[2018-01-19] MEDS: WARFARIN SODIUM 3 MG TABLET PO SCH (21:54)
[2018-01-19] MEDS: LATANOPROST 0.005% OPH SOLN 2.5 ML OU SCH (21:54)
[2018-01-19] MEDS: ATORVASTATIN CALCIUM 40 MG TABLET PO SCH (21:54)
[2018-01-20] MEDS: ACETAMINOPHEN 325 MG TABLET PO PRN ×3 (00:35→23:50)
[2018-01-20] MEDS: LANSOPRAZOLE 30 MG TAB.RAP.DR PO SCH (05:04)
[2018-01-20] MEDS: CALCIUM CARBONATE 250 MG/VITAMIN D3 125 UNIT TABLET PO SCH (10:41)
[2018-01-20] MEDS: MULTIVITAMIN TABLET PO SCH (10:42)
[2018-01-20] MEDS: DILTIAZEM HCL 120 MG CAP.SR.24H PO SCH (10:42)
[2018-01-20] MEDS: VALSARTAN 40 MG TABLET PO SCH (10:42)
[2018-01-20] MEDS: ACETAZOLAMIDE 500 MG CAPSULE.SA PO SCH (10:42)
[2018-01-20] MEDS: CITALOPRAM HYDROBROMIDE 20 MG TABLET PO SCH (10:42)
[2018-01-20] MEDS: LEVOFLOXACIN 500 MG TABLET PO SCH (10:42)
[2018-01-20] MEDS: METOPROLOL SUCCINATE 25 MG TAB.SR.24H PO SCH (10:43)
[2018-01-20] MEDS: TIOTROPIUM BROMIDE DPI 5 CAP/KIT (18 MCG/CAP) IH SCH (10:44)
[2018-01-20] MEDS: BUDESONIDE/FORMOTEROL 160-4.5 MCG 60 PUFF/6 GM MDI IH SCH ×2 (10:45→21:23)
[2018-01-20] MEDS: CEFEPIME 1 GM/D5W RTU 1 GM/50 ML RTUPB IV SCH ×2 (10:45→21:23)
--- NOTE | 2018-01-20 15:32 | PDOC PROGRESS REPORT ---
Subjective Progress Note for:: 01/20/18 Subjective:: She was seen by the bedside, she continues to improve with treatment Reason For Visit: PNEUMONIA, COPD EXACERBATION Physical Exam Vital Signs: Temp Pulse Resp BP Pulse Ox 97.5 F 65 14 113/41 L 100 01/20/18 11:49 01/20/18 14:00 01/20/18 11:49 01/20/18 11:49 01/20/18 11:49 Intake & Output 01/19/18 01/20/18 01/21/18 06:59 06:59 06:59 Intake Total 610 1365 387 Balance 610 1365 387 Weight 43.6 kg 42.8 kg General appearance: PRESENT: no acute distress Head exam: PRESENT: atraumatic, normocephalic Eye exam: PRESENT: conjunctiva pink, EOMI, PERRLA Ear exam: PRESENT: normal external ear exam Mouth exam: PRESENT: moist, tongue midline Neck exam: PRESENT: full ROM Respiratory exam: PRESENT: decreased breath sounds Cardiovascular exam: PRESENT: RRR, +S1, +S2 GI/Abdominal exam: PRESENT: normal bowel sounds, soft Rectal exam: PRESENT: deferred Neurological exam: PRESENT: alert. ABSENT: motor sensory deficit Psychiatric exam: PRESENT: appropriate affect, normal mood Skin exam: PRESENT: dry, intact, warm Results Laboratory Results: 01/18/18 04:04 01/18/18 04:04 01/15/18 07:39 Blood Blood Culture - Final NO GROWTH IN 5 DAYS 01/17/18 20:05 Sputum Gram Stain - Final 01/17/18 20:05 Sputum Sputum Culture - Final C.albicans/C.dubliniensis Normal Britni Absent Impressions: Chest X-Ray 01/15/18 05:32 IMPRESSION: No significant change. Assessment & Plan - Diagnosis (1) Acute and chronic respiratory failure ([id number]) Qualifiers: Respiratory failure complication: hypercapnia Qualified Code(s): J96.22 - Acute and chronic respiratory failure with hypercapnia Is this a current diagnosis for this admission?: Yes (2) COPD with acute exacerbation Is this a current diagnosis for this admission?: Yes (3) Multifocal pneumonia Is this a current diagnosis for this admission?: Yes - Plan Summary Plan Summary: Continue treatment
[2018-01-20] MEDS: ATORVASTATIN CALCIUM 40 MG TABLET PO SCH (21:23)
[2018-01-20] MEDS: LATANOPROST 0.005% OPH SOLN 2.5 ML OU SCH (21:23)
[2018-01-20] MEDS: WARFARIN SODIUM 3 MG TABLET PO SCH (21:23)
[2018-01-21] MEDS: LANSOPRAZOLE 30 MG TAB.RAP.DR PO SCH (06:28)
--- NOTE | 2018-01-21 07:53 | PDOC PROGRESS REPORT ---
Subjective Progress Note for:: 01/21/18 Subjective:: Patient reported intermittent difficulty with breathing. No chest pain. No fever or chills. No nausea, vomiting or abdominal pain. She remain on IV Cefepime and oral Levofloxacin coverage. Reason For Visit: PNEUMONIA, COPD EXACERBATION Physical Exam Vital Signs: Temp Pulse Resp BP Pulse Ox 98.3 F 62 18 130/47 H 99 01/21/18 04:10 01/21/18 04:10 01/21/18 04:10 01/21/18 04:10 01/21/18 04:10 Intake & Output 01/20/18 01/21/18 01/22/18 06:59 06:59 06:59 Intake Total 1365 1212 Balance 1365 1212 Weight 42.8 kg 44.5 kg Physical Exam: General appearance: PRESENT: mild distress - on supplemental oxygen at 2L/min via nasal cannula, thin Head exam: PRESENT: atraumatic, normocephalic Eye exam: PRESENT: conjunctiva pink, EOMI, PERRLA. ABSENT: scleral icterus Mouth exam: PRESENT: moist Teeth exam: PRESENT: poor dentition Respiratory exam: PRESENT: decreased breath sounds Cardiovascular exam: PRESENT: RRR. ABSENT: diastolic murmur, rubs, systolic murmur GI/Abdominal exam: PRESENT: normal bowel sounds, soft. ABSENT: distended, guarding, mass, organomegaly, rebound, tenderness Extremities exam: ABSENT: pedal edema Musculoskeletal exam: PRESENT: deformity - related to multiple joints involvement with arthritis. ABSENT: tenderness Neurological exam: PRESENT: alert, awake, oriented to person, oriented to place , oriented to time, oriented to situation, CN II-XII grossly intact. ABSENT: motor sensory deficit Psychiatric exam: PRESENT: appropriate affect, normal mood. ABSENT: homicidal ideation, suicidal ideation Skin exam: PRESENT: dry, warm Results Laboratory Results: 01/18/18 04:04 01/18/18 04:04 01/15/18 07:39 Blood Blood Culture - Final NO GROWTH IN 5 DAYS Impressions: Chest X-Ray 01/15/18 05:32 IMPRESSION: No significant change. Assessment & Plan - Diagnosis (1) COPD with exacerbation Is this a current diagnosis for this admission?: Yes (2) Acute and chronic respiratory failure with hypoxia Is this a current diagnosis for this admission?: Yes (3) Multifocal pneumonia Is this a current diagnosis for this admission?: Yes (5) Chronic diastolic CHF (congestive heart failure) Is this a current diagnosis for this admission?: Yes (6) Oropharyngeal candidiasis Is this a current diagnosis for this admission?: Yes Plan: See attending physician orders. - Time Time Spent with patient: 25-34 minutes Medications reviewed and adjusted accordingly: Yes Anticipated discharge: Home Within: Other - Inpatient Certification Based on my medical assessment, after consideration of the patient's comorbidities, presenting symptoms, or acuity I expect that the services needed warrant INPATIENT care.: Yes I certify that my determination is in accordance with my understanding of Medicare's requirements for reasonable and necessary INPATIENT services [42 CFR 412.3e].: Yes Medical Necessity: Need Close Monitoring Due to Risk of Patient Decompensation, Need For IV Fluids, Need For Continuous Telemetry Monitoring, Need for Nebulizer Therapy and Monitoring of Response, Need for IV Antibiotics, Risk of Complication if Not Cared For in Hospital Post Hospital Care: D/C Rail Gang Supervisor 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
[2018-01-21 09:00] LABS: ABSOLUTE EOSINOPHILS # (AUTO) 0.3 10^3/uL (0.0-0.6); ABSOLUTE LYMPHOCYTES (AUTO) 1.5 10^3/uL (0.5-4.7); ABSOLUTE MONOCYTES (AUTO) 0.8 10^3/uL (0.1-1.4); ABSOLUTE NEUT (AUTO) 6.1 10^3/uL (1.7-8.2); BASOPHILS % (AUTO) 0.3 % (0-2); EOSINOPHILS % (AUTO) 3.5 % (0-6); HEMATOCRIT 36.7 % (36.0-47.0); HEMOGLOBIN 11.7 g/dL (12.0-15.5); LYMPHOCYTES % (AUTO) 17.2 % (13-45); MEAN CORPUSCULAR HEMOGLOBIN 30.7 pg (27.0-33.4); MEAN CORPUSCULAR HGB CONC 31.9 g/dL (32.0-36.0); MEAN CORPUSCULAR VOLUME 96 fl (80-97); MONOCYTES % (AUTO) 9.2 % (3-13); PLATELET COUNT 265 10^3/uL (150-450); RED BLOOD COUNT 3.81 10^6/uL (3.72-5.28); RED CELL DISTRIBUTION WIDTH 14.8 % (11.5-14.0); SEGMENTED NEUTROPHILS % (AUTO) 69.8 % (42-78); TOTAL CELLS COUNTED % (AUTO) 100 %; WHITE BLOOD COUNT 8.7 10^3/uL (4.0-10.5)
[2018-01-21 09:37] LABS: ANION GAP 10 (5-19); BLOOD UREA NITROGEN 22 mg/dL (7-20); CALCIUM 9.5 mg/dL (8.4-10.2); CARBON DIOXIDE 26 mmol/L (22-30); CHLORIDE 108 mmol/L (98-107); GLUCOSE 110 mg/dL (75-110); SODIUM 143.7 mmol/L (137-145)
[2018-01-21 09:43] LABS: POTASSIUM 4.4 mmol/L (3.6-5.0)
[2018-01-21] MEDS: BUDESONIDE/FORMOTEROL 160-4.5 MCG 60 PUFF/6 GM MDI IH SCH ×2 (10:31→21:49)
[2018-01-21] MEDS: METOPROLOL SUCCINATE 25 MG TAB.SR.24H PO SCH (10:31)
[2018-01-21] MEDS: CEFEPIME 1 GM/D5W RTU 1 GM/50 ML RTUPB IV SCH ×2 (10:31→21:50)
[2018-01-21] MEDS: DILTIAZEM HCL 120 MG CAP.SR.24H PO SCH (10:31)
[2018-01-21] MEDS: CALCIUM CARBONATE 250 MG/VITAMIN D3 125 UNIT TABLET PO SCH (10:31)
[2018-01-21] MEDS: MULTIVITAMIN TABLET PO SCH (10:32)
[2018-01-21] MEDS: CLOTRIMAZOLE 10 MG TROCHE PO SCH ×4 (10:32→19:39)
[2018-01-21] MEDS: CITALOPRAM HYDROBROMIDE 20 MG TABLET PO SCH (10:32)
[2018-01-21] MEDS: LEVOFLOXACIN 500 MG TABLET PO SCH (10:32)
[2018-01-21] MEDS: ACETAZOLAMIDE 500 MG CAPSULE.SA PO SCH (10:32)
[2018-01-21] MEDS: VALSARTAN 40 MG TABLET PO SCH (10:32)
[2018-01-21] MEDS: TIOTROPIUM BROMIDE DPI 5 CAP/KIT (18 MCG/CAP) IH SCH (11:13)
[2018-01-21] MEDS: ACETAMINOPHEN 325 MG TABLET PO PRN ×2 (14:43→19:58)
[2018-01-21] MEDS: LATANOPROST 0.005% OPH SOLN 2.5 ML OU SCH (21:45)
[2018-01-21] MEDS: ATORVASTATIN CALCIUM 40 MG TABLET PO SCH (21:49)
[2018-01-21] MEDS: WARFARIN SODIUM 3 MG TABLET PO SCH (21:49)
[2018-01-22] MEDS: ACETAMINOPHEN 325 MG TABLET PO PRN ×4 (01:25→22:09)
[2018-01-22] MEDS: LANSOPRAZOLE 30 MG TAB.RAP.DR PO SCH (05:21)
[2018-01-22] MEDS: CLOTRIMAZOLE 10 MG TROCHE PO SCH ×5 (07:58→18:32)
[2018-01-22] MEDS: DILTIAZEM HCL 120 MG CAP.SR.24H PO SCH (09:45)
[2018-01-22] MEDS: CITALOPRAM HYDROBROMIDE 20 MG TABLET PO SCH (09:45)
[2018-01-22] MEDS: MULTIVITAMIN TABLET PO SCH (09:46)
[2018-01-22] MEDS: METOPROLOL SUCCINATE 25 MG TAB.SR.24H PO SCH (09:46)
[2018-01-22] MEDS: ACETAZOLAMIDE 500 MG CAPSULE.SA PO SCH (09:46)
[2018-01-22] MEDS: LEVOFLOXACIN 500 MG TABLET PO SCH (09:46)
[2018-01-22] MEDS: CALCIUM CARBONATE 250 MG/VITAMIN D3 125 UNIT TABLET PO SCH (09:46)
[2018-01-22] MEDS: VALSARTAN 40 MG TABLET PO SCH (09:47)
[2018-01-22] MEDS: TIOTROPIUM BROMIDE DPI 5 CAP/KIT (18 MCG/CAP) IH SCH (09:47)
[2018-01-22] MEDS: BUDESONIDE/FORMOTEROL 160-4.5 MCG 60 PUFF/6 GM MDI IH SCH ×2 (09:47→22:03)
[2018-01-22] MEDS: CEFEPIME 1 GM/D5W RTU 1 GM/50 ML RTUPB IV SCH (09:53)
--- NOTE | 2018-01-22 19:11 | PDOC PROGRESS REPORT ---
Subjective Subjective:: Patient denied chest pain. She reported improvement in her breathing but remain on supplemental oxygen at 2L/min. No fever or chills. No nausea, vomiting or abdominal pain. She remain on IV Cefepime day # 7 and oral Levofloxacin coverage. Reason For Visit: PNEUMONIA, COPD EXACERBATION Physical Exam Vital Signs: Temp Pulse Resp BP Pulse Ox 98.1 F 54 L 14 116/51 L 100 01/22/18 16:16 01/22/18 16:16 01/22/18 16:16 01/22/18 16:16 01/22/18 16:16 Intake & Output 01/21/18 01/22/18 01/23/18 06:59 06:59 06:59 Intake Total 1212 1688 880 Balance 1212 1688 880 Weight 44.5 kg 44.3 kg Physical Exam: General appearance: PRESENT: mild distress - on supplemental oxygen at 2L/min via nasal cannula, thin Head exam: PRESENT: atraumatic, normocephalic Eye exam: PRESENT: conjunctiva pink, EOMI, PERRLA. ABSENT: scleral icterus Mouth exam: PRESENT: moist Teeth exam: PRESENT: poor dentition Respiratory exam: PRESENT: decreased breath sounds Cardiovascular exam: PRESENT: RRR. ABSENT: diastolic murmur, rubs, systolic murmur GI/Abdominal exam: PRESENT: normal bowel sounds, soft. ABSENT: distended, guarding, mass, organomegaly, rebound, tenderness Extremities exam: ABSENT: pedal edema Musculoskeletal exam: PRESENT: deformity - related to multiple joints involvement with arthritis. ABSENT: tenderness Neurological exam: PRESENT: alert, awake, oriented to person, oriented to place , oriented to time, oriented to situation, CN II-XII grossly intact. ABSENT: motor sensory deficit Psychiatric exam: PRESENT: appropriate affect, normal mood. ABSENT: homicidal ideation, suicidal ideation Skin exam: PRESENT: dry, warm Results Laboratory Results: 01/21/18 08:17 01/21/18 08:17 Impressions: Chest X-Ray 01/15/18 05:32 IMPRESSION: No significant change. Assessment & Plan - Diagnosis (1) COPD with exacerbation Is this a current diagnosis for this admission?: Yes (2) Acute and chronic respiratory failure with hypoxia Is this a current diagnosis for this admission?: Yes (3) Multifocal pneumonia Is this a current diagnosis for this admission?: Yes (5) Chronic diastolic CHF (congestive heart failure) Is this a current diagnosis for this admission?: Yes (6) Oropharyngeal candidiasis Is this a current diagnosis for this admission?: Yes - Time Time Spent with patient: 25-34 minutes Medications reviewed and adjusted accordingly: Yes Anticipated discharge: Home Within: within 24 hours - Inpatient Certification Based on my medical assessment, after consideration of the patient's comorbidities, presenting symptoms, or acuity I expect that the services needed warrant INPATIENT care.: Yes I certify that my determination is in accordance with my understanding of Medicare's requirements for reasonable and necessary INPATIENT services [42 CFR 412.3e].: Yes Medical Necessity: Need Close Monitoring Due to Risk of Patient Decompensation, Need For IV Fluids, Need For Continuous Telemetry Monitoring, Need for Nebulizer Therapy and Monitoring of Response, Need for IV Antibiotics, Risk of Complication if Not Cared For in Hospital Post Hospital Care: D/C Organizational Development Consultant Documentation - Plan Summary Plan Summary: She will complete 7 days IV Cefepime therapy today. Continue oral Levofloxacin therapy. taper off supplemental oxygen as tolerated. Possible discharge home tomorrow.
[2018-01-22] MEDS: LATANOPROST 0.005% OPH SOLN 2.5 ML OU SCH (22:00)
[2018-01-22] MEDS: ATORVASTATIN CALCIUM 40 MG TABLET PO SCH (22:04)
[2018-01-22] MEDS: WARFARIN SODIUM 3 MG TABLET PO SCH (22:04)
[2018-01-23] MEDS: LANSOPRAZOLE 30 MG TAB.RAP.DR PO SCH (05:37)
[2018-01-23] MEDS: CLOTRIMAZOLE 10 MG TROCHE PO SCH ×2 (05:37→09:05)
[2018-01-23 08:45] VITALS: BP 123/35
[2018-01-23] MEDS: DILTIAZEM HCL 120 MG CAP.SR.24H PO SCH (08:59)
[2018-01-23] MEDS: MULTIVITAMIN TABLET PO SCH (08:59)
[2018-01-23] MEDS: CITALOPRAM HYDROBROMIDE 20 MG TABLET PO SCH (09:04)
[2018-01-23] MEDS: METOPROLOL SUCCINATE 25 MG TAB.SR.24H PO SCH (09:04)
[2018-01-23] MEDS: VALSARTAN 40 MG TABLET PO SCH (09:05)
[2018-01-23] MEDS: TIOTROPIUM BROMIDE DPI 5 CAP/KIT (18 MCG/CAP) IH SCH (09:05)
[2018-01-23] MEDS: BUDESONIDE/FORMOTEROL 160-4.5 MCG 60 PUFF/6 GM MDI IH SCH (09:05)
[2018-01-23] MEDS: ACETAZOLAMIDE 500 MG CAPSULE.SA PO SCH (09:05)
[2018-01-23] MEDS: LEVOFLOXACIN 500 MG TABLET PO SCH (09:05)
[2018-01-23] MEDS: CALCIUM CARBONATE 250 MG/VITAMIN D3 125 UNIT TABLET PO SCH (09:05)
--- NOTE | 2018-01-23 18:33 | PDOC DISCHARGE SUMMARY ---
General - Admit/Disc Date/PCP Admission Date/Primary Care Provider: 01/15/18 07:26 АНДРЕЙ SUTTON Discharge Date: 01/23/18 - Discharge Diagnosis (1) COPD with exacerbation Is this a current diagnosis for this admission?: Yes (2) Acute and chronic respiratory failure with hypoxia Is this a current diagnosis for this admission?: Yes (3) Multifocal pneumonia Is this a current diagnosis for this admission?: Yes (5) Chronic diastolic CHF (congestive heart failure) Is this a current diagnosis for this admission?: Yes (6) Oropharyngeal candidiasis Is this a current diagnosis for this admission?: Yes - Additional Information Resuscitation Status: Full Code - I discussed resusitation staus with patient at bedside and at present she decided to be a full code status. Discharge Diet: Cardiac Discharge Activity: Activity As Tolerated Prescriptions: Clotrimazole [Mycelex 10 mg Kathe] 10 mg PO 5XD #50 kathe Levofloxacin [Levaquin 500 mg Tablet] 500 mg PO DAILY #5 tablet Home Medications: Acetazolamide [Diamox Sequel 500 mg] 500 mg PO DAILY 09/29/17 Albuterol Sulfate [Proair HFA Inhalation Aerosol 8.5 gm MDI] 2 puff PO Q4HP PRN 09/29/17 Atorvastatin Calcium [Lipitor 40 mg Tablet] 40 mg PO QHS 09/29/17 Budesonide/Formoterol Fumarate [Symbicort 160-4.5 Mcg Inhaler] 2 puff PO BID Calcium Carbonate/Vitamin D3 [Oyster Shell 500-Vit D3 200 Tb] 1 tab PO DAILY Citalopram Hydrobromide [Celexa 20 mg Tablet] 20 mg PO DAILY 09/29/17 Diltiazem HCl [Cardizem Cd 120 mg Capsule] 120 mg PO DAILY 09/29/17 Metoprolol Succinate [Toprol Xl 25 mg Tab.sr] 25 mg PO DAILY 09/29/17 Pantoprazole Sodium [Protonix] 40 mg PO TID 09/29/17 Tiotropium [place] [Spiriva Handihaler 18 mcg/dose (30 Dose)] 1 cap IH DAILY Valsartan [Diovan 40 mg Tablet] 40 mg PO DAILY 09/29/17 Warfarin Sodium [Coumadin 3 mg Tablet] 3 mg PO SUMOTUTHSA@2200 09/29/17 Multivitamin [Tab-A-Vivi (Multiple Vitamin) Tablet] 1 tab PO DAILY 01/15/18 Oxycodone HCl/Acetaminophen [Percocet 7.5-325 mg Tablet] 1 tab PO Q8HP PRN 01/15 Warfarin Sodium [Coumadin 3 mg Tablet] 4.5 mg PO WEFR@2200 01/15/18 Clotrimazole [Mycelex 10 mg Kathe] 10 mg PO 5XD #50 kathe 01/23/18 Latanoprost [Xalatan 0.005% Oph Soln 2.5 ml] 1 drop OU QHS bottle 01/23/18 Levofloxacin [Levaquin 500 mg Tablet] 500 mg PO DAILY #5 tablet 01/23/18 History of Present Illness Patient complains of: Difficulty with breathing History of Present Illness: JUNAID VILCHIS is a 73 year old female known to my practice brought o the ED by EMS crew after family activate service due to patient appearing blue and reported no pulse. EMS found her in severe respiratory distress necessitating administration of BiPAP support with supplemental oxygen and IV Solu Medrol administration en route to the ED. Patient reported progressive difficulty with breathing over preceding 3 days with associated productive coughing, intermittent chest pain and back pain with coughing. Her initial ED evaluation did revealed significant respiratory distress with need for continue BiPAP support IV Lasix administration and antibiotic therapy. Her morbidities include chronic atrial fibrillation, CHF, CAD, Hypertension, Hypercholesterolemia, Oxygen dependent End stage COPD, Anxiety, Hx Depression, osteoarthritis with chronic pain syndrome, and long standing right breast cancer. She was admitted with concern for Pneumonia and exacerbated COPD and possible CHF due to chronic atrial fibrillation with rapid ventricular rate. Hospital Course Hospital Course: Patient was admitted for exacerbated COPD with chronic hypoxemic respiratory failure and multifocal bilateral pneumonia. Her associated severe leukocytosis did resolved at the time of her discharge. She was treated with IV Cefepime and Levofloxacin with the latter transition to oral route. She will be discharged home on oral Levofloxacin for 5 more days. Her blood culture did not reveal any organism after adequate incubation period. Her sputum culture was significant for Pam species and she was treated for possible oropharyngeal candidiasis with oral clotrimazole therapy. We were able to transition her from BiPAP support to nasal cannula and eventually off supplemental oxygen as her clinical status improve. Patient is currently on home AVAPS system for chronic respiratory failure management. She reported less compliance due to poorly fitting face mask. she will follow up in the office as instructed upon discharge. Physical Exam Vital Signs: Temp Pulse Resp BP Pulse Ox 98.3 F 68 20 115/43 L 94 01/23/18 03:46 01/23/18 07:00 01/23/18 03:46 01/23/18 03:46 01/23/18 03:46 Intake & Output 01/22/18 01/23/18 01/24/18 06:59 06:59 06:59 Intake Total 1688 1010 Balance 1688 1010 Weight 44.3 kg 44 kg Physical Exam: General appearance: PRESENT: mild distress - on supplemental oxygen at 2L/min via nasal cannula, thin Head exam: PRESENT: atraumatic, normocephalic Eye exam: PRESENT: conjunctiva pink, EOMI, PERRLA. ABSENT: scleral icterus Mouth exam: PRESENT: moist Teeth exam: PRESENT: poor dentition Respiratory exam: PRESENT: decreased breath sounds Cardiovascular exam: PRESENT: RRR. ABSENT: diastolic murmur, rubs, systolic murmur GI/Abdominal exam: PRESENT: normal bowel sounds, soft. ABSENT: distended, guarding, mass, organomegaly, rebound, tenderness Extremities exam: ABSENT: pedal edema Musculoskeletal exam: PRESENT: deformity - related to multiple joints involvement with arthritis. ABSENT: tenderness Neurological exam: PRESENT: alert, awake, oriented to person, oriented to place , oriented to time, oriented to situation, CN II-XII grossly intact. ABSENT: motor sensory deficit Psychiatric exam: PRESENT: appropriate affect, normal mood. ABSENT: homicidal ideation, suicidal ideation Skin exam: PRESENT: dry, warm Results Laboratory Results: 01/21/18 08:17 01/21/18 08:17 Impressions: Chest X-Ray 01/15/18 05:32 IMPRESSION: No significant change. Qualifiers - * PATEINT BEING DISCHARGED WITH ANY OF THE FOLLOWING DIAGNOSIS?: No Plan Discharge Plan: D/C home today. Follow up in the office as instructed upon discharge.
== END 2018-01-23 11:05 | disposition home or self-care (01) | DRG 193 ==
LOC: ER 05:25 → UNDOADMIN 07:26 → EH 07:26 → 3N 14:36
PROVIDERS: ADMIT Internal Medicine Geriatric Medicine; ATTEND Internal Medicine Geriatric Medicine
PROC: 5A09557 Assistance with Respiratory Ventilation, Greater than 96 Consecutive Hours, Continuous Positive Airway Pressure (ICD-10-PCS; principal; 2018-01-15)
DX: J18.9 Pneumonia, unspecified organism (principal); J96.21 Acute and chronic respiratory failure with hypoxia; J44.1 Chronic obstructive pulmonary disease with (acute) exacerbation; J44.0 Chronic obstructive pulmonary disease with (acute) lower respiratory infection; I50.32 Chronic diastolic (congestive) heart failure; B37.0 Candidal stomatitis; I11.0 Hypertensive heart disease with heart failure; I48.2 Chronic atrial fibrillation; I25.10 Atherosclerotic heart disease of native coronary artery without angina pectoris; D72.829 Elevated white blood cell count, unspecified; E78.5 Hyperlipidemia, unspecified; F41.9 Anxiety disorder, unspecified; G89.4 Chronic pain syndrome; M19.90 Unspecified osteoarthritis, unspecified site; F32.9 Major depressive disorder, single episode, unspecified; Z99.81 Dependence on supplemental oxygen; Z85.3 Personal history of malignant neoplasm of breast; Z87.891 Personal history of nicotine dependence; Z82.49 Family history of ischemic heart disease and other diseases of the circulatory system; Z91.030 Bee allergy status
CPT/HCPCS: 36415; 71045; 80048; 80053; 82803; 83605; 83735; 83880; 84484; 85025; 85610; 87040; 87070; 87205; 87493; 93005; 93010; 94640; 94660; 94667; 96361; 96365; 96375; 99291; J0692; J1940; J1956; J3490; J7030; J7040; J7620

== ENCOUNTER 2018-03-10 19:23 | Emergency (ER) | payer MEDICARE, OTHER ==
[2018-03-10] MEDS ORDERED: IPRATROPIUM/ALBUTEROL 0.5-2.5 MG/3 ML AMPUL NEB ONE (20:34)
[2018-03-10] MEDS ORDERED: PREDNISONE 20 MG TABLET PO ONE (20:34)
--- NOTE | 2018-03-10 20:35 | ER Document Report ---
ED General - General Chief Complaint: Chest Pain Stated Complaint: CHEST PAIN Time Seen by Provider: 03/10/18 20:30 Mode of Arrival: Ambulatory Information source: Patient, Relative Notes: 73-year-old female with atrial fibrillation, congestive heart failure, COPD presents with complaint of 1 week of cough, shortness of breath and chest pain. Patient reports 1 week of productive cough with yellow sputum. Chest pain is described as a burning chest pain that is associated with coughing only. Shortness of breath is chronic but reported to be worse with patient's coughing. Patient denies any fever, chills, nausea, vomiting. Patient is supposed to be on home oxygen but states that she has not been using it recently. Last hospitalization was 2 months prior to arrival for pneumonia. Patient has used her albuterol and Spiriva without relief. She denies any sick contacts. TRAVEL OUTSIDE OF THE [place] IN LAST 30 DAYS: No - HPI Onset: Last week Onset/Duration: Gradual, Persistent Quality of pain: Burning Severity: Mild Associated symptoms: Chest pain, Productive cough, Shortness of breath Exacerbated by: Coughing Relieved by: Remaining still Similar symptoms previously: Yes Recently seen / treated by doctor: Yes - Related Data Allergies/Adverse Reactions: bee pollen [Bee Pollen] Allergy (Unknown, Verified 01/15/18 08:05) propoxyphene [From Darvocet-N] Allergy (Verified 01/15/18 08:05) venom-wasp [Wasp Venom] Allergy (Verified 01/15/18 08:05) Past Medical History - General Information source: Patient, [facility] Records - Social History Smoking Status: Former Smoker Frequency of alcohol use: None Drug Abuse: None Lives with: Family Family History: Reviewed & Not Pertinent, COPD, Hypertension - Past Medical History Cardiac Medical History: Reports: Hx Atrial Fibrillation, Hx Congestive Heart Failure, Hx Coronary Artery Disease, Hx Hypercholesterolemia, Hx Hypertension Pulmonary Medical History: Reports: Hx Bronchitis, Hx COPD - stage 3, Hx Pneumonia Renal/ Medical History: Denies: Hx Peritoneal Dialysis Malignancy Medical History: Reports: Hx Breast Cancer - right, over 10 years ago GI Medical History: Reports: Hx Ulcer Musculoskeltal Medical History: Reports Hx Arthritis, Reports Hx Musculoskeletal Deformity, Reports Hx Musculoskeletal Trauma Psychiatric Medical History: Reports: Hx Anxiety, Hx Depression Traumatic Medical History: Reports: Hx Fractures Past Surgical History: Reports: Hx Breast Surgery - lumpectomy, needle biopsy - Immunizations Immunizations up to date: Yes Hx Diphtheria, Pertussis, Tetanus Vaccination: Yes Review of Systems - Review of Systems Notes: REVIEW OF SYSTEMS: CONSTITUTIONAL : Denies fever, chills, or sweats. Denies recent illness. Denies weight loss, recent hospitalizations. EENT: Denies visual changes, eye pain. Denies nasal or sinus congestion or discharge. Denies sore throat, oral lesions, difficulty swallowing. CARDIOVASCULAR: Denies palpitations or racing or irregular heart beat. Denies lower extremity edema. RESPIRATORY: Admits to productive cough with associated chest pain, shortness of breath. GASTROINTESTINAL: Denies abdominal pain or distention. Denies nausea, vomiting , or diarrhea. Denies blood in vomitus, stools, or per rectum. Denies black, tarry stools. Denies constipation. GENITOURINARY: Denies difficulty urinating, painful urination, burning, frequency, blood in urine, or vaginal discharge. MUSCULOSKELETAL: Denies back or neck pain or stiffness. Denies joint pain or swelling. SKIN: Denies rash, lesions or sores. HEMATOLOGIC : Denies easy bruising or bleeding. LYMPHATIC: Denies swollen, enlarged glands. NEUROLOGICAL: Denies confusion or altered mental status. Denies passing out or loss of consciousness. Denies dizziness or lightheadedness. Denies headache. Denies weakness or paralysis or loss of use of either side. Denies problems with gait or speech. Denies sensory loss, numbness, or tingling. Denies seizures. PSYCHIATRIC: Denies anxiety or stress. Denies depression, suicidal ideation, or homicidal ideation. Physical Exam - Vital signs Vitals: Temp Pulse Resp BP Pulse Ox 98.9 F 56 L 20 122/41 L 96 03/10/18 19:45 03/10/18 19:45 03/10/18 19:45 03/10/18 19:45 03/10/18 19:45 - Notes Notes: PHYSICAL EXAMINATION: GENERAL: Well-appearing, well-nourished and in no acute distress. HEAD: Atraumatic, normocephalic. EYES: Pupils equal round and reactive to light, extraocular movements intact, conjunctiva are normal. ENT: Nares patent, oropharynx clear without exudates. Moist mucous membranes. NECK: Normal range of motion, supple without lymphadenopathy LUNGS: Bilateral wheezing lower lung bahena HEART: Regular rate and rhythm without murmurs ABDOMEN: Soft, nontender, nondistended abdomen. No guarding, no rebound. No masses appreciated. Female : deferred Musculoskeletal: Normal range of motion, no pitting or edema. No cyanosis. NEUROLOGICAL: Cranial nerves grossly intact. Normal speech, normal gait. Normal sensory, motor exams PSYCH: Normal mood, normal affect. SKIN: Warm, Dry, normal turgor, no rashes or lesions noted. Course - Re-evaluation Re-evalutation: Laboratory 03/10/18 03/10/18 03/10/18 21:24 21:24 21:24 WBC 8.5 RBC 3.20 L Hgb 10.1 L Hct 31.3 L MCV 98 H MCH 31.6 MCHC 32.4 RDW 16.7 H Plt Count 184 Seg Neutrophils % 71.4 Lymphocytes % 17.0 Monocytes % 9.3 Eosinophils % 2.0 Basophils % 0.3 Absolute Neutrophils 6.1 Absolute Lymphocytes 1.4 Absolute Monocytes 0.8 Absolute Eosinophils 0.2 Absolute Basophils 0.0 Sodium 143.8 Potassium 4.2 Chloride 108 H Carbon Dioxide 24 Anion Gap 12 BUN 32 H Creatinine 1.48 H Est GFR ( Amer) 42 L Est GFR (Non-Af Amer) 35 L Glucose 126 H Calcium 9.1 Total Bilirubin 0.4 Direct Bilirubin 0.3 Neonat Total Bilirubin Not Reportable Neonat Direct Bilirubin Not Reportable Neonat Indirect Bili Not Reportable AST 17 ALT 23 Alkaline Phosphatase 53 Creatine Kinase 42 CK-MB (CK-2) 2.25 Troponin I < 0.012 Total Protein 6.2 L Albumin 3.5 Chest X-Ray 03/10/18 20:34 IMPRESSION: COPD. NO ACUTE RADIOGRAPHIC FINDING IN THE CHEST. 73-year-old female with atrial fibrillation, congestive heart failure, COPD presents with complaint of 1 week of cough, shortness of breath and chest pain. Patient reports 1 week of productive cough with yellow sputum. Chest pain is described as a burning chest pain that is associated with coughing only. Shortness of breath is chronic but reported to be worse with patient's coughing. Patient was seen by myself upon arrival. Vital signs were reviewed. Patient is afebrile, normotensive and not hypoxic. Patient does not appear toxic she does appear mildly dehydrated. They are in no acute distress. Previous medical records and nursing notes reviewed. Significant findings include an exam is significant for bilateral lower lung field wheezing. Patient is not tachypneic, using accessory muscles. She is able to speak in full sentences. CBC is without leukocytosis, she does have mild anemia which appears to be baseline. CMP does show a mildly elevated creatinine for which the patient received fluids for. Creatinine likely elevated secondary to mild dehydration. Patient was encouraged to drink plenty of water home. Patient received prednisone, doxycycline during her ED course. Patient will be discharged with prescription for both. 03/10/18 22:51 On reevaluation patient states her shortness of breath has improved. She is requesting discharge home. I did ask her to please wait until the remaining labs are resulted. Patient provided the opportunity to ask questions, and express concerns. Discharge instructions discussed. Patient is agreeable with discharge home. Return indications explained and discussed with the patient who displays understanding. Patient encouraged to return to the emergency department immediately with any concerns. 03/12/18 06:16 03/12/18 06:16 03/12/18 06:20 - Vital Signs Vital signs: Temp Pulse Resp BP Pulse Ox 98.9 F 56 L 16 134/55 H 96 03/10/18 19:45 03/10/18 19:45 03/11/18 00:28 03/11/18 00:01 03/11/18 00:28 - Laboratory Result Diagrams: 03/10/18 21:24 03/10/18 21:24 Laboratory results interpreted by me: 03/10/18 03/10/18 21:24 21:24 RBC 3.20 L Hgb 10.1 L Hct 31.3 L MCV 98 H RDW 16.7 H Chloride 108 H BUN 32 H Creatinine 1.48 H Est GFR ( Amer) 42 L Est GFR (Non-Af Amer) 35 L Glucose 126 H Total Protein 6.2 L - Diagnostic Test Radiology reviewed: Image reviewed, Reports reviewed - EKG Interpretation by Me Rate: Normal Rhythm: A.Fib, PVC's When compared to previous EKG there are: No significant change Discharge - Discharge Clinical Impression: COPD with acute exacerbation, Renal insufficiency, Bronchitis, Dehydration Back pain, chronic Qualifiers: Back pain location: back pain in unspecified location Back pain laterality: bilateral Qualified Code(s): M54.9 - Dorsalgia, unspecified Condition: Good Disposition: HOME, SELF-CARE Instructions: Chest Wall Pain ([facility]), Chronic Back Pain ([facility]), Chronic Obstructive Lung Disease ([facility]), Kidney Injury ([facility]) Additional Instructions: Follow up with your physician tomorrow for further care or return to the ED IMMEDIATELY if symptoms worsen or new concerns occur. If you cannot afford to follow up with your primary care physician a list of low cost clinics have been provided at the end of your discharge papers as well. Prescriptions: Doxycycline Hyclate 100 mg PO BID #14 capsule Prednisone 40 mg PO DAILY #10 tablet Referrals: АНДРЕЙ SUTTON MD [Primary Care Provider] - Follow up in 3-5 days
--- NOTE | 2018-03-10 21:10 | RADIOLOGY REPORT (SQ) ---
EXAM DESCRIPTION: CHEST 2 VIEWS COMPLETED DATE/TIME: 03/10/2018 8:54 pm REASON FOR STUDY: cough COMPARISON: None. NUMBER OF VIEWS: Two view. TECHNIQUE: Frontal and lateral radiographic views of the chest acquired. LIMITATIONS: None. FINDINGS: LUNGS AND PLEURA: Chronic blunting of the costophrenic angles. Clips overlying right lowe r lobe. Attenuated blood vessels and flattened fredrick-diaphragms. MEDIASTINUM AND HILAR STRUCTURES: No masses. No contour abnormalities. HEART AND VASCULAR STRUCTURES: Cardiomegaly. No evidence for failure. BONES: No acute findings. HARDWARE: See above. OTHER: No other significant finding. IMPRESSION: COPD. NO ACUTE RADIOGRAPHIC FINDING IN THE CHEST. TECHNICAL DOCUMENTATION: JOB ID: [id number] [employer]- All Rights Reserved Reading location - IP/workstation name: [email or web address]
[2018-03-10 21:33] LABS: ABSOLUTE EOSINOPHILS # (AUTO) 0.2 10^3/uL (0.0-0.6); ABSOLUTE LYMPHOCYTES (AUTO) 1.4 10^3/uL (0.5-4.7); ABSOLUTE MONOCYTES (AUTO) 0.8 10^3/uL (0.1-1.4); ABSOLUTE NEUT (AUTO) 6.1 10^3/uL (1.7-8.2); BASOPHILS % (AUTO) 0.3 % (0-2); HEMATOCRIT 31.3 % (36.0-47.0); HEMOGLOBIN 10.1 g/dL (12.0-15.5); MEAN CORPUSCULAR HEMOGLOBIN 31.6 pg (27.0-33.4); MEAN CORPUSCULAR HGB CONC 32.4 g/dL (32.0-36.0); MEAN CORPUSCULAR VOLUME 98 fl (80-97); MONOCYTES % (AUTO) 9.3 % (3-13); PLATELET COUNT 184 10^3/uL (150-450); RED CELL DISTRIBUTION WIDTH 16.7 % (11.5-14.0); SEGMENTED NEUTROPHILS % (AUTO) 71.4 % (42-78); TOTAL CELLS COUNTED % (AUTO) 100 %; WHITE BLOOD COUNT 8.5 10^3/uL (4.0-10.5)
[2018-03-10] MEDS ORDERED: OXYCODONE-ACETAMINOPHEN 5-325 MG TABLET PO ONE (22:51)
[2018-03-10] MEDS ORDERED: DOXYCYCLINE HYCLATE 100 MG TABLET PO ONE (22:51)
--- NOTE | 2018-03-10 23:01 | EKG REPORT ---
SEVERITY:- ABNORMAL ECG - ATRIAL FIBRILLATION, V-RATE 40-68 VENTRICULAR PREMATURE COMPLEX : Confirmed by: Farnaz Aceves 10-Mar-2018 23:00:23
[2018-03-10 23:04] LABS: ALANINE AMINOTRANSFERASE 23 U/L (9-52); ALBUMIN 3.5 g/dL (3.5-5.0); ALKALINE PHOSPHATASE 53 U/L (38-126); ANION GAP 12 (5-19); ASPARTATE AMINO TRANSFERASE 17 U/L (14-36); BILIRUBIN,DIRECT 0.3 mg/dL (0.0-0.4); BILIRUBIN,TOTAL 0.4 mg/dL (0.2-1.3); BLOOD UREA NITROGEN 32 mg/dL (7-20); CALCIUM 9.1 mg/dL (8.4-10.2); CARBON DIOXIDE 24 mmol/L (22-30); CHLORIDE 108 mmol/L (98-107); CREATINE KINASE 42 U/L (30-135); GLUCOSE 126 mg/dL (75-110); POTASSIUM 4.2 mmol/L (3.6-5.0); SODIUM 143.8 mmol/L (137-145); TOTAL PROTEIN 6.2 g/dL (6.3-8.2)
[2018-03-10 23:13] LABS: CREATINE KINASE MB 2.25 ng/mL (<4.55); TROPONIN I < 0.012 ng/mL
[2018-03-10] MEDS ORDERED: NORMAL SALINE 1000 ML 1,000 ML IV ONE (23:23)
[2018-03-11 00:29] VITALS: BP 134/55
== END 2018-03-11 00:39 | disposition home or self-care (01) ==
LOC: ER 19:23
DX: J44.1 Chronic obstructive pulmonary disease with (acute) exacerbation (principal); N28.9 Disorder of kidney and ureter, unspecified; J40 Bronchitis, not specified as acute or chronic; E86.0 Dehydration; R07.9 Chest pain, unspecified; M54.9 Dorsalgia, unspecified; I48.91 Unspecified atrial fibrillation; I50.9 Heart failure, unspecified
CPT/HCPCS: 93005; 94640; 99285; 96360; 36415; 82553; 82550; 85025; 80053; 84484; 71046; 93010; A9270 ×4; J7030; J7512; J7620

== ENCOUNTER → 2018-04-17 | Outpatient (CLI) | payer MEDICARE, OTHER ==
[2018-04-17 18:00] LABS: ABSOLUTE EOSINOPHILS # (AUTO) 0.1 10^3/uL (0.0-0.6); ABSOLUTE LYMPHOCYTES (AUTO) 1.4 10^3/uL (0.5-4.7); ABSOLUTE MONOCYTES (AUTO) 0.7 10^3/uL (0.1-1.4); ABSOLUTE NEUT (AUTO) 10.4 10^3/uL (1.7-8.2); BASOPHILS % (AUTO) 0.4 % (0-2); EOSINOPHILS % (AUTO) 1.1 % (0-6); HEMATOCRIT 30.2 % (36.0-47.0); HEMOGLOBIN 9.7 g/dL (12.0-15.5); LYMPHOCYTES % (AUTO) 10.8 % (13-45); MEAN CORPUSCULAR HEMOGLOBIN 31.6 pg (27.0-33.4); MEAN CORPUSCULAR HGB CONC 32.1 g/dL (32.0-36.0); MEAN CORPUSCULAR VOLUME 98 fl (80-97); MONOCYTES % (AUTO) 5.3 % (3-13); PLATELET COUNT 366 10^3/uL (150-450); RED BLOOD COUNT 3.07 10^6/uL (3.72-5.28); RED CELL DISTRIBUTION WIDTH 17.1 % (11.5-14.0); SEGMENTED NEUTROPHILS % (AUTO) 82.4 % (42-78); TOTAL CELLS COUNTED % (AUTO) 100 %; WHITE BLOOD COUNT 12.6 10^3/uL (4.0-10.5)
[2018-04-17 18:18] LABS: IRON(TIBC) 40.1 ug/dL (37-170)
[2018-04-17 19:30] LABS: FOLATE > 20.00 ng/mL (>2.76)
== END ==
LOC: OD 17:07
PROVIDERS: ATTEND Internal Medicine Geriatric Medicine
DX: D64.9 Anemia, unspecified (principal)
CPT/HCPCS: 36415; 82607; 82728; 82746; 83540; 83550; 85025

== ENCOUNTER 2018-06-30 15:14 | Inpatient (IN) | payer MEDICARE, OTHER ==
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
[2018-06-30 18:43] LABS: INTERNATIONAL RATION (INR) 2.04; PROTHROMBIN TIME 24.1 SEC (11.4-15.4)
[2018-06-30 18:52] LABS: ABSOLUTE EOSINOPHILS # (AUTO) 0.1 10^3/uL (0.0-0.6); ABSOLUTE LYMPHOCYTES (AUTO) 1.2 10^3/uL (0.5-4.7); ABSOLUTE MONOCYTES (AUTO) 0.6 10^3/uL (0.1-1.4); ABSOLUTE NEUT (AUTO) 6.2 10^3/uL (1.7-8.2); BASOPHILS % (AUTO) 0.4 % (0-2); EOSINOPHILS % (AUTO) 1.3 % (0-6); HEMATOCRIT 33.8 % (36.0-47.0); HEMOGLOBIN 10.8 g/dL (12.0-15.5); LYMPHOCYTES % (AUTO) 14.7 % (13-45); MEAN CORPUSCULAR HEMOGLOBIN 32.1 pg (27.0-33.4); MEAN CORPUSCULAR HGB CONC 32.1 g/dL (32.0-36.0); MEAN CORPUSCULAR VOLUME 100 fl (80-97); MONOCYTES % (AUTO) 7.7 % (3-13); PLATELET COUNT 209 10^3/uL (150-450); RED BLOOD COUNT 3.38 10^6/uL (3.72-5.28); RED CELL DISTRIBUTION WIDTH 15.7 % (11.5-14.0); SEGMENTED NEUTROPHILS % (AUTO) 75.9 % (42-78); TOTAL CELLS COUNTED % (AUTO) 100 %; WHITE BLOOD COUNT 8.1 10^3/uL (4.0-10.5)
[2018-06-30 19:02] LABS: ALANINE AMINOTRANSFERASE 21 U/L (9-52); ALBUMIN 3.9 g/dL (3.5-5.0); ALKALINE PHOSPHATASE 67 U/L (38-126); ANION GAP 9 (5-19); ASPARTATE AMINO TRANSFERASE 22 U/L (14-36); BILIRUBIN,DIRECT 0.3 mg/dL (0.0-0.4); BILIRUBIN,TOTAL 0.6 mg/dL (0.2-1.3); BLOOD UREA NITROGEN 24 mg/dL (7-20); CALCIUM 9.4 mg/dL (8.4-10.2); CARBON DIOXIDE 23 mmol/L (22-30); CHLORIDE 110 mmol/L (98-107); GLUCOSE 88 mg/dL (75-110); POTASSIUM 3.6 mmol/L (3.6-5.0); SODIUM 142.3 mmol/L (137-145); TOTAL PROTEIN 6.8 g/dL (6.3-8.2)
--- NOTE | 2018-06-30 19:12 | EKG REPORT ---
SEVERITY:- ABNORMAL ECG - ATRIAL FIBRILLATION, V-RATE 46-74 : Confirmed by: Araceli Magaña MD 30-Jun-2018 19:11:40
[2018-06-30] MEDS ORDERED: FUROSEMIDE INJ/PF 40 MG/4 ML SDV IV ONE (23:52)
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
[2018-07-01] MEDS ORDERED: NITROGLYCERIN 2% OINTMENT 1 GM PACKET TP ONE (00:41)
[2018-07-01 01:17] LABS: VENOUS BLOOD BASE EXCESS -5.8 mmol/L; VENOUS BLOOD HCO3 22.4 mmol/L (20-32); VENOUS BLOOD PH 7.21 (7.30-7.42)
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
[2018-07-01] MEDS ORDERED: IPRATROPIUM/ALBUTEROL 0.5-2.5 MG/3 ML AMPUL NEB PRN (02:27)
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
[2018-07-01 07:34] LABS: CREATINE KINASE MB 2.55 ng/mL (<4.55)
[2018-07-01 07:38] LABS: FREE T4 (FREE THYROXINE) 1.1 ng/dL (0.78-2.19)
[2018-07-01 07:46] LABS: TROPONIN I < 0.012 ng/mL
[2018-07-01 07:52] LABS: THYROID STIMULATING HORMONE 2.99 uIU/mL (0.47-4.68)
[2018-07-01] MEDS ORDERED: ENOXAPARIN SODIUM INJ 40 MG/0.4 ML DISP.SYRIN SUBCUT SCH (10:00)
[2018-07-01 13:27] LABS: CREATINE KINASE MB 2.28 ng/mL (<4.55)
[2018-07-01 13:29] LABS: TROPONIN I < 0.012 ng/mL
[2018-07-01] MEDS ORDERED: ALBUTEROL SULFATE HFA (90 MCG/PUFF) 200 PUFF/8.5 GM MDI IH PRN (18:37)
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
[2018-07-01 20:14] LABS: CREATINE KINASE MB 2.09 ng/mL (<4.55)
[2018-07-01 20:18] LABS: TROPONIN I < 0.012 ng/mL
[2018-07-01] MEDS ORDERED: WARFARIN SODIUM 3 MG TABLET PO SCH (22:00)
[2018-07-01] MEDS ORDERED: (PENDING PHARMACY ID) (Latanoprost/Pf [Latanoprost 0.005% Eye Drop] 1 DROP) OU SCH (22:00)
[2018-07-01] MEDS ORDERED: (PENDING PHARMACY ID) (Warfarin Sodium 3 MG) PO SCH (22:00)
[2018-07-01 22:07] LABS: INTERNATIONAL RATION (INR) 1.61
[2018-07-01] MEDS: LATANOPROST 0.005% OPH SOLN 2.5 ML OU SCH (22:58)
[2018-07-01] MEDS: GABAPENTIN 300 MG CAPSULE PO SCH ×2 (22:58→23:13)
[2018-07-01] MEDS: MELATONIN 3 MG TABLET PO SCH ×2 (23:00→23:14)
[2018-07-02] MEDS: GABAPENTIN 300 MG CAPSULE PO SCH ×4 (05:37→21:31)
[2018-07-02 06:35] LABS: ABSOLUTE EOSINOPHILS # (AUTO) 0.2 10^3/uL (0.0-0.6); ABSOLUTE LYMPHOCYTES (AUTO) 1.4 10^3/uL (0.5-4.7); ABSOLUTE MONOCYTES (AUTO) 0.6 10^3/uL (0.1-1.4); ABSOLUTE NEUT (AUTO) 4.2 10^3/uL (1.7-8.2); BASOPHILS % (AUTO) 0.4 % (0-2); EOSINOPHILS % (AUTO) 3.4 % (0-6); HEMATOCRIT 35.5 % (36.0-47.0); HEMOGLOBIN 11.8 g/dL (12.0-15.5); LYMPHOCYTES % (AUTO) 22.2 % (13-45); MEAN CORPUSCULAR HEMOGLOBIN 31.9 pg (27.0-33.4); MEAN CORPUSCULAR HGB CONC 33.2 g/dL (32.0-36.0); MONOCYTES % (AUTO) 9.1 % (3-13); PLATELET COUNT 211 10^3/uL (150-450); RED CELL DISTRIBUTION WIDTH 15.4 % (11.5-14.0); SEGMENTED NEUTROPHILS % (AUTO) 64.9 % (42-78); TOTAL CELLS COUNTED % (AUTO) 100 %; WHITE BLOOD COUNT 6.5 10^3/uL (4.0-10.5)
[2018-07-02 06:42] LABS: INTERNATIONAL RATION (INR) 1.56; PROTHROMBIN TIME 19.4 SEC (11.4-15.4)
[2018-07-02 06:53] LABS: CHOLESTEROL 145.03 mg/dL (0-200); TRIGLYCERIDES 78 mg/dL (<150)
[2018-07-02 07:03] LABS: DIRECT LDL 51 mg/dL (<100)
[2018-07-02 07:24] LABS: MEAN CORPUSCULAR VOLUME 96 fl (80-97)
[2018-07-02] MEDS ORDERED: (PENDING PHARMACY ID) (Calcium Carbonate/Vitamin D3 [Oyster Shell 500-Vit D3 200 Tb] 1 TAB PO SCH (10:00)
[2018-07-02] MEDS: DILTIAZEM HCL 120 MG CAP.SR.24H PO SCH (11:07)
[2018-07-02] MEDS: CITALOPRAM HYDROBROMIDE 20 MG TABLET PO SCH (11:08)
[2018-07-02] MEDS: CALCIUM CARBONATE 250 MG/VITAMIN D3 125 UNIT TABLET PO SCH (11:08)
[2018-07-02] MEDS: MULTIVITAMIN TABLET PO SCH (11:08)
[2018-07-02] MEDS: METOPROLOL SUCCINATE 25 MG TAB.SR.24H PO SCH (11:08)
[2018-07-02] MEDS: VALSARTAN 40 MG TABLET PO SCH (11:09)
[2018-07-02] MEDS: ACETAZOLAMIDE 500 MG CAPSULE.SA PO SCH (11:09)
[2018-07-02] MEDS: DOCUSATE SODIUM 100 MG CAPSULE PO SCH (11:09)
[2018-07-02] MEDS: TIOTROPIUM BROMIDE DPI 5 CAP/KIT (18 MCG/CAP) IH SCH (11:10)
[2018-07-02] MEDS: BUDESONIDE/FORMOTEROL 160-4.5 MCG 60 PUFF/6 GM MDI IH SCH ×3 (11:11→21:11)
[2018-07-02] MEDS: OXYCODONE-ACETAMINOPHEN 5-325 MG TABLET PO PRN ×2 (11:13→21:10)
--- NOTE | 2018-07-02 12:03 | CONSULTATION REPORT E ---
Consultation Report NAME: JUNAID VILCHIS : 1945 AGE: 73Y DATE: 330 A TO: KLAUS VAZ M.D. FROM: АНДРЕЙ SUTTON M.D. Requesting Physician HISTORY OF PRESENT ILLNESS: The patient is a 73-year-old female who came in for increased shortness of breath for the last few days. Condition worsened. Thus, the patient went to the emergency room and eventually admitted. The patient complains that she has some chest tightness, coughing some phlegm; occasionally yellow-green, but sometimes white. No fever. No chills. No hemoptysis. ALLERGIES: 1. BEE POLLEN 2. DARVOCET. PAST MEDICAL HISTORY: 1. History of COPD. 2. Emphysema. 3. History of congestive heart failure. 4. History of atrial fibrillation. 5. Coronary artery disease. 6. Hyperlipidemia. 7. Hypertension. 8. History of pneumonia. 9. History of breast cancer, right, status post mastectomy 10 years ago. 10. History of ulcer. 11. Arthritis. 12. Muscular deformity. 14. Anxiety. 15. Depression. 16. Fractures. SOCIAL HISTORY: Smoking history: The patient smoked heavily for several years and quit cold turkey about a few months ago. Denies illicit drug use or alcohol abuse. FAMILY HISTORY: Coronary artery disease, stroke, and maybe hyperlipidemia, hypertension, malignancy. REVIEW OF SYSTEMS: CONSTITUTIONAL: No fever or chills. EYES: There is no pallor. EARS, NOSE, AND THROAT: No ear drainage. No nasal discharge. HEAD AND NECK: No scalp tenderness or neck tenderness. CHEST AND LUNGS: Complained of shortness of breath and chest tightness. Denies any hemoptysis. CARDIAC: History of atrial fibrillation. Some chest tightness. History of pleural effusion, mild, left side. ABDOMEN: Denies any nausea, vomiting, or diarrhea. GENITOURINARY: No dysuria or hematuria. EXTREMITIES: No joint swelling or cellulitis. PHYSICAL EXAMINATION: GENERAL: The patient is awake, alert, oriented x3, with temperature of 98 degrees Fahrenheit, with T max of 98.7, blood pressure is 130/41, heart rate of 81, the respiratory rate 16, saturation is 98-99% on room air. EYES: No jaundice or pallor. EARS, NOSE, AND THROAT: No ear drainage noted. No nasal discharge. CHEST AND LUNGS: No wheezing. No rhonchi. No coarse crackles. CARDIOVASCULAR: S1, S2 distinct. Normal rate, regular rhythm. ABDOMEN: Flabby. Positive bowel sounds. Soft, nondistended, nontender. EXTREMITIES: No joint swelling or cellulitis. LABORATORY DATA: CBC done yesterday showed a white count of 8.1, hemoglobin is 10.8, hematocrit 33.8, platelet count of 409. Chemistry done yesterday showed sodium is 142, potassium 3.6, chloride 110, CO2 is 33, BUN 24, creatinine 1.06, glucose 88, calcium is 9.4, total bilirubin 0.6, direct bilirubin 0.3, SGOT is 32, SGPT 21. The NT-BNP is 3080. Total protein 6.8. IMAGING STUDIES: Chest x-ray done yesterday showed pleural effusion, mild, small amount, on the left side; slightly more compared to the chest x-ray done on 03/10/2018. Chest CT scan reviewed, done today, showed the pleural effusion left side, and no findings suggestive of malignancy. ASSESSMENT: 1. Pleural effusion left side, small. This may improve with diuresis. It is small enough that the patient does not need thoracentesis at this point. 2. COPD, emphysema is currently stable and not in exacerbation. PLAN AND RECOMMENDATIONS: 1. Optimize CHF therapy. The patient may require optimal diuresis and CHLOE inhibitor. If the pleural effusion continued to worsen, would consider ultrasound-guided thoracentesis. 2. Recommend pulmonary clinic followup in 2-3 weeks following hospital discharge. 3. Continue Symbicort 2 puffs twice a day. 4. Continue Spiriva 1 capsule a day. 5. Albuterol inhaler 2 puffs every 6 hours as needed. DICTATING PHYSICIAN: KLAUS VAZ MD,RUSTY,MPH [id number] PHY#: [id number] ID: [id number] JOB#: [id number] ACCT: [id number] cc:KLAUS VAZ M.D. > MTDD
--- NOTE | 2018-07-02 17:37 | XCELERA REPORT ---
[address] [address] Transthoracic Echocardiogram Report Name: JUNAID VILCHIS Age: 73 yrs Gender: Female : 1945 Patient Status: Inpatient Patient Location: [place] [address]^A Study Date: 07/01/2018 11:26 AM Height: 61 in Weight: 96 lb BSA: 1.4 m2 Procedure: A two-dimensional transthoracic echocardiogram with color flow and Doppler was performed. Study Quality: Technically suboptimal. The study was technically difficult with many images being suboptimal in quality. Reason For Study: chf History: CHF. Ordering Physician: CEE ROQUE Performed By: Tommy Hobson Interpretation Summary The left ventricle is normal in size. There is normal left ventricular wall thickness. LV EF is 65% Left ventricular systolic function is normal. The left ventricular wall motion is normal. The right ventricle is normal in size and function. The left atrial size is normal. There is no evidence of mitral valve prolapse. There is no vegetation seen on the mitral valve. There is no mitral valve stenosis. There is no mitral regurgitation noted. There is no aortic valvular vegetation. There is no aortic valve stenosis There is no LVOT obstruction. No aortic regurgitation is present. There is no tricuspid stenosis. There is a trace amount of tricuspid regurgitation Unable to calculate RVSP due lack of TR jet. There is no pericardial effusion. MMode/2D Measurements & Calculations RVDd: 2.4 cm LVIDd: 3.6 cm FS: 45.2 % Ao root diam: 3.0 cm IVSd: 1.0 cm LVIDs: 2.0 cm EDV(Teich): 54.9 ml Ao root area: 7.2 cm2 LVPWd: 1.0 cm ESV(Teich): 12.4 ml LA dimension: 3.8 cm EF(Teich): 77.4 % LVOT diam: 2.0 cm LVOT area: 3.3 cm2 Doppler Measurements & Calculations MV E max allyn: MV P1/2t max allyn: Ao V2 max: LV V1 max P.2 cm/sec 101.3 cm/sec 82.0 cm/sec 1.3 mmHg MV A max allyn: MV P1/2t: 47.8 msec Ao max PG: LV V1 max: 0.49 cm/sec MVA(P1/2t): 4.6 cm2 2.7 mmHg 57.8 cm/sec MV E/A: 205.0 MV dec slope: KATT(V,D): 2.3 cm2 620.5 cm/sec2 MV dec time: 0.14 sec PA V2 max: MV P1/2t-pr_phl: 89.8 cm/sec 47.8 msec PA max P.2 mmHg Left Ventricle The left ventricle is normal in size. There is normal left ventricular wall thickness. LV EF is 65%. Left ventricular systolic function is normal. LV diastolic function could not be adequately assessed due to atrial fibrilation. The left ventricular wall motion is normal. There is no thrombus. Right Ventricle The right ventricle is normal in size and function. Atria The right atrium is normal. The left atrial size is normal. Mitral Valve There is no evidence of mitral valve prolapse. There is no vegetation seen on the mitral valve. There is no mitral valve stenosis. There is no mitral regurgitation noted. Aortic Valve There is no aortic valvular vegetation. There is no aortic valve stenosis. There is no LVOT obstruction. No aortic regurgitation is present. Tricuspid Valve There is no tricuspid stenosis. There is a trace amount of tricuspid regurgitation. Unable to calculate RVSP due lack of TR jet. Pulmonic Valve There is no pulmonic valvular stenosis. There is no pulmonic valvular regurgitation. Great Vessels The aortic root is not well visualized but is probably normal size. Effusions There is no pericardial effusion. : CEE ROQUE > Araceli Magaña
--- NOTE | 2018-07-02 19:15 | PDOC PROGRESS REPORT ---
Subjective Progress Note for:: 07/02/18 Subjective:: No chest pain. Breathing is improving. Pulmonary consult recommendations discussed at bedside with patient. No fever or chills. No abdominal pain, nausea or vomiting. Reason For Visit: HEART FAILURE Physical Exam Vital Signs: Temp Pulse Resp BP Pulse Ox 97.5 F 56 L 20 105/41 L 95 07/02/18 15:58 07/02/18 15:58 07/02/18 15:58 07/02/18 15:58 07/02/18 15:58 Intake & Output 07/01/18 07/02/18 07/03/18 06:59 06:59 06:59 Intake Total 892 322 Balance 892 322 Weight 43 kg General appearance: PRESENT: no acute distress, thin Head exam: PRESENT: atraumatic, normocephalic Ear exam: PRESENT: normal external ear exam Mouth exam: PRESENT: moist Teeth exam: PRESENT: poor dentation Respiratory exam: PRESENT: clear to auscultation leslie Cardiovascular exam: PRESENT: irregular rhythm, +S1, +S2. ABSENT: diastolic murmur, systolic murmur Vascular exam: PRESENT: normal capillary refill. ABSENT: pallor GI/Abdominal exam: PRESENT: normal bowel sounds, soft. ABSENT: distended, guarding, mass, organolmegaly, rebound, tenderness Extremities exam: ABSENT: pedal edema Neurological exam: PRESENT: alert, awake, oriented to person, oriented to place , oriented to time, oriented to situation, CN II-XII grossly intact. ABSENT: motor sensory deficit Psychiatric exam: PRESENT: appropriate affect, normal mood. ABSENT: homicidal ideation, suicidal ideation Skin exam: PRESENT: dry, warm Results Laboratory Results: 07/02/18 05:53 07/02/18 07/02/18 05:53 05:53 WBC 6.5 RBC 3.70 L Hgb 11.8 L Hct 35.5 L MCV 96 D MCH 31.9 MCHC 33.2 RDW 15.4 H Plt Count 211 Seg Neutrophils % 64.9 Lymphocytes % 22.2 Monocytes % 9.1 Eosinophils % 3.4 Basophils % 0.4 Absolute Neutrophils 4.2 Absolute Lymphocytes 1.4 Absolute Monocytes 0.6 Absolute Eosinophils 0.2 Absolute Basophils 0.0 Triglycerides 78 Cholesterol 145.03 LDL Cholesterol Direct 51 VLDL Cholesterol 16.0 HDL Cholesterol 64 09/24/18 01:23 Clean Catch Midstream Urine Culture - Final Mixed Urogenital Britni 07/01/18 07/01/18 07/01/18 06:31 06:31 12:34 Creatine Kinase 58 77 CK-MB (CK-2) 2.55 Troponin I < 0.012 07/01/18 07/01/18 07/01/18 12:34 19:05 19:05 Creatine Kinase 95 CK-MB (CK-2) 2.28 2.09 Troponin I < 0.012 < 0.012 Impressions: Chest X-Ray 06/30/18 00:00 IMPRESSION: COPD WITH CHRONIC SCARRING. INTERVAL DEVELOPMENT OF A MODERATE LEFT PLEURAL EFFUSION. Wrist X-Ray 07/01/18 00:42 IMPRESSION: 1. No acute fracture or dislocation. 2010 [employer]- All Rights Reserved Chest/Abdomen CTA 07/01/18 00:44 IMPRESSION:No evidence of pulmonary embolus Small left pleural effusion Bronchial wall thickening suggesting bronchitis which may be acute or chronic in nature but appears similar to the previous study Areas of probable scarring or chronic atelectasis in the lung bases Cardiac enlargement Assessment & Plan - Diagnosis (1) Acute on chronic diastolic (congestive) heart failure Is this a current diagnosis for this admission?: Yes Plan: Continue current medication management. Her echocardiogram is more suggestive of diastolic dysfunction as origin of cardiac decompensation. (2) Chronic atrial fibrillation Is this a current diagnosis for this admission?: Yes Plan: Subtherapeutic INR. Increase Coumadin to 5 mg po x 1 dose tonight. (3) COPD (chronic obstructive pulmonary disease) Qualifiers: COPD type: unspecified COPD Qualified Code(s): J44.9 - Chronic obstructive pulmonary disease, unspecified Is this a current diagnosis for this admission?: Yes Plan: Continue current medication management. (4) Pleural effusion Is this a current diagnosis for this admission?: Yes (5) HTN (hypertension) Qualifiers: Hypertension type: essential hypertension Qualified Code(s): I10 - Essential (primary) hypertension Is this a current diagnosis for this admission?: Yes (6) HLD (hyperlipidemia) Qualifiers: Hyperlipidemia type: unspecified Qualified Code(s): E78.5 - Hyperlipidemia , unspecified Is this a current diagnosis for this admission?: Yes (7) CAD (coronary artery disease) Qualifiers: Coronary Disease-Associated Artery/Lesion type: [place] artery [place] vs. transplanted heart: [place] heart Associated angina: without angina Qualified Code(s): I25.10 - Atherosclerotic heart disease of [place] coronary artery without angina pectoris Is this a current diagnosis for this admission?: Yes (8) Mixed anxiety and depressive disorder Is this a current diagnosis for this admission?: Yes (9) Chronic prescription opiate use Is this a current diagnosis for this admission?: Yes (10) Chronic pain syndrome Is this a current diagnosis for this admission?: Yes - Time Time Spent with patient: 25-34 minutes Medications reviewed and adjusted accordingly: Yes Anticipated discharge: Home Within: Other - Inpatient Certification Based on my medical assessment, after consideration of the patient's comorbidities, presenting symptoms, or acuity I expect that the services needed warrant INPATIENT care.: Yes I certify that my determination is in accordance with my understanding of Medicare's requirements for reasonable and necessary INPATIENT services [42 CFR 412.3e].: Yes Medical Necessity: Need Close Monitoring Due to Risk of Patient Decompensation, Need For Continuous Telemetry Monitoring, Need for Nebulizer Therapy and Monitoring of Response, Risk of Complication if Not Cared For in Hospital Post Hospital Care: D/C Leasing Coordinator 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
[2018-07-02] MEDS: MELATONIN 3 MG TABLET PO SCH (21:11)
[2018-07-02] MEDS: LATANOPROST 0.005% OPH SOLN 2.5 ML OU SCH (21:11)
[2018-07-02] MEDS ORDERED: WARFARIN SODIUM 5 MG TABLET PO SCH (22:00)
[2018-07-03] MEDS: GABAPENTIN 300 MG CAPSULE PO SCH ×3 (05:45→21:55)
[2018-07-03 06:15] LABS: ABSOLUTE EOSINOPHILS # (AUTO) 0.2 10^3/uL (0.0-0.6); ABSOLUTE LYMPHOCYTES (AUTO) 1.7 10^3/uL (0.5-4.7); ABSOLUTE MONOCYTES (AUTO) 0.8 10^3/uL (0.1-1.4); ABSOLUTE NEUT (AUTO) 4.8 10^3/uL (1.7-8.2); BASOPHILS % (AUTO) 0.6 % (0-2); EOSINOPHILS % (AUTO) 2.7 % (0-6); HEMATOCRIT 31.6 % (36.0-47.0); HEMOGLOBIN 10.6 g/dL (12.0-15.5); LYMPHOCYTES % (AUTO) 22.2 % (13-45); MEAN CORPUSCULAR HEMOGLOBIN 32.4 pg (27.0-33.4); MEAN CORPUSCULAR HGB CONC 33.5 g/dL (32.0-36.0); MEAN CORPUSCULAR VOLUME 97 fl (80-97); MONOCYTES % (AUTO) 10.5 % (3-13); PLATELET COUNT 203 10^3/uL (150-450); RED BLOOD COUNT 3.26 10^6/uL (3.72-5.28); RED CELL DISTRIBUTION WIDTH 15.8 % (11.5-14.0); TOTAL CELLS COUNTED % (AUTO) 100 %; WHITE BLOOD COUNT 7.4 10^3/uL (4.0-10.5)
[2018-07-03 06:16] LABS: INTERNATIONAL RATION (INR) 1.57; PROTHROMBIN TIME 19.5 SEC (11.4-15.4)
[2018-07-03 06:45] LABS: ANION GAP 8 (5-19); BLOOD UREA NITROGEN 39 mg/dL (7-20); CALCIUM 8.8 mg/dL (8.4-10.2); CARBON DIOXIDE 26 mmol/L (22-30); CHLORIDE 104 mmol/L (98-107); GLUCOSE 118 mg/dL (75-110); POTASSIUM 3.5 mmol/L (3.6-5.0); SODIUM 137.9 mmol/L (137-145)
[2018-07-03] MEDS: CALCIUM CARBONATE 250 MG/VITAMIN D3 125 UNIT TABLET PO SCH (10:14)
[2018-07-03] MEDS: CITALOPRAM HYDROBROMIDE 20 MG TABLET PO SCH (10:14)
[2018-07-03] MEDS: MULTIVITAMIN TABLET PO SCH (10:14)
[2018-07-03] MEDS: DILTIAZEM HCL 120 MG CAP.SR.24H PO SCH (10:14)
[2018-07-03] MEDS: DOCUSATE SODIUM 100 MG CAPSULE PO SCH (10:14)
[2018-07-03] MEDS: BUDESONIDE/FORMOTEROL 160-4.5 MCG 60 PUFF/6 GM MDI IH SCH ×2 (10:15→21:54)
[2018-07-03] MEDS: ACETAZOLAMIDE 500 MG CAPSULE.SA PO SCH (10:15)
[2018-07-03] MEDS: TIOTROPIUM BROMIDE DPI 5 CAP/KIT (18 MCG/CAP) IH SCH (10:15)
[2018-07-03] MEDS: VALSARTAN 40 MG TABLET PO SCH (10:15)
[2018-07-03] MEDS: METOPROLOL SUCCINATE 25 MG TAB.SR.24H PO SCH (10:15)
[2018-07-03] MEDS: OXYCODONE-ACETAMINOPHEN 5-325 MG TABLET PO PRN ×2 (10:17→21:54)
--- NOTE | 2018-07-03 19:29 | PDOC PROGRESS REPORT ---
Subjective Progress Note for:: 07/03/18 Subjective:: No chest pain or difficulty with breathing. No fever or chills. No abdominal pain, nausea or vomiting. Reason For Visit: HEART FAILURE Physical Exam Vital Signs: Temp Pulse Resp BP Pulse Ox 98.3 F 60 20 113/40 L 98 07/03/18 14:50 07/03/18 14:50 07/03/18 14:50 07/03/18 14:50 07/03/18 14:50 Intake & Output 07/02/18 07/03/18 07/04/18 06:59 06:59 06:59 Intake Total 892 322 150 Balance 892 322 150 Weight 43 kg 43.8 kg Physical Exam: General appearance: PRESENT: no acute distress, thin Head exam: PRESENT: atraumatic, normocephalic Ear exam: PRESENT: normal external ear exam Mouth exam: PRESENT: moist Teeth exam: PRESENT: poor dentition Respiratory exam: PRESENT: clear to auscultation leslie Cardiovascular exam: PRESENT: irregular rhythm, +S1, +S2. ABSENT: diastolic murmur, systolic murmur Vascular exam: ABSENT: pallor GI/Abdominal exam: PRESENT: normal bowel sounds, soft. ABSENT: distended, guarding, mass, organomegaly, rebound, tenderness Extremities exam: ABSENT: pedal edema Neurological exam: PRESENT: alert, awake, oriented to person, oriented to place , oriented to time, oriented to situation, CN II-XII grossly intact. ABSENT: motor sensory deficit Psychiatric exam: PRESENT: appropriate affect, normal mood. ABSENT: homicidal ideation, suicidal ideation Skin exam: PRESENT: dry, warm Results Laboratory Results: 07/03/18 05:36 07/03/18 05:36 07/03/18 07/03/18 05:36 05:36 WBC 7.4 RBC 3.26 L Hgb 10.6 L Hct 31.6 L MCV 97 MCH 32.4 MCHC 33.5 RDW 15.8 H Plt Count 203 Seg Neutrophils % 64.0 Lymphocytes % 22.2 Monocytes % 10.5 Eosinophils % 2.7 Basophils % 0.6 Absolute Neutrophils 4.8 Absolute Lymphocytes 1.7 Absolute Monocytes 0.8 Absolute Eosinophils 0.2 Absolute Basophils 0.0 Sodium 137.9 Potassium 3.5 L Chloride 104 Carbon Dioxide 26 Anion Gap 8 BUN 39 H Creatinine 1.88 H Est GFR ( Amer) 32 L Est GFR (Non-Af Amer) 26 L Glucose 118 H Calcium 8.8 07/01/18 07/01/18 07/01/18 06:31 06:31 12:34 Creatine Kinase 58 77 CK-MB (CK-2) 2.55 Troponin I < 0.012 07/01/18 07/01/18 07/01/18 12:34 19:05 19:05 Creatine Kinase 95 CK-MB (CK-2) 2.28 2.09 Troponin I < 0.012 < 0.012 Impressions: Chest X-Ray 06/30/18 00:00 IMPRESSION: COPD WITH CHRONIC SCARRING. INTERVAL DEVELOPMENT OF A MODERATE LEFT PLEURAL EFFUSION. Wrist X-Ray 07/01/18 00:42 IMPRESSION: 1. No acute fracture or dislocation. 2010 [employer]- All Rights Reserved Chest/Abdomen CTA 07/01/18 00:44 IMPRESSION:No evidence of pulmonary embolus Small left pleural effusion Bronchial wall thickening suggesting bronchitis which may be acute or chronic in nature but appears similar to the previous study Areas of probable scarring or chronic atelectasis in the lung bases Cardiac enlargement Assessment & Plan - Diagnosis (1) Acute on chronic diastolic (congestive) heart failure Is this a current diagnosis for this admission?: Yes (2) Chronic atrial fibrillation Is this a current diagnosis for this admission?: Yes Plan: Subtherapeutic INR. Give Coumadin to 5 mg po x 1 dose tonight. (3) COPD (chronic obstructive pulmonary disease) Qualifiers: COPD type: unspecified COPD Qualified Code(s): J44.9 - Chronic obstructive pulmonary disease, unspecified Is this a current diagnosis for this admission?: Yes (4) Pleural effusion Is this a current diagnosis for this admission?: Yes (5) HTN (hypertension) Qualifiers: Hypertension type: essential hypertension Qualified Code(s): I10 - Essential (primary) hypertension Is this a current diagnosis for this admission?: Yes (6) HLD (hyperlipidemia) Qualifiers: Hyperlipidemia type: unspecified Qualified Code(s): E78.5 - Hyperlipidemia , unspecified Is this a current diagnosis for this admission?: Yes (7) CAD (coronary artery disease) Qualifiers: Coronary Disease-Associated Artery/Lesion type: [place] artery [place] vs. transplanted heart: [place] heart Associated angina: without angina Qualified Code(s): I25.10 - Atherosclerotic heart disease of [place] coronary artery without angina pectoris Is this a current diagnosis for this admission?: Yes (8) Mixed anxiety and depressive disorder Is this a current diagnosis for this admission?: Yes (9) Chronic prescription opiate use Is this a current diagnosis for this admission?: Yes (10) Chronic pain syndrome Is this a current diagnosis for this admission?: Yes - Time Time Spent with patient: 25-34 minutes Medications reviewed and adjusted accordingly: Yes Anticipated discharge: Home - Inpatient Certification Based on my medical assessment, after consideration of the patient's comorbidities, presenting symptoms, or acuity I expect that the services needed warrant INPATIENT care.: Yes I certify that my determination is in accordance with my understanding of Medicare's requirements for reasonable and necessary INPATIENT services [42 CFR 412.3e].: Yes Medical Necessity: Need Close Monitoring Due to Risk of Patient Decompensation, Need For Continuous Telemetry Monitoring, Need for Nebulizer Therapy and Monitoring of Response, Risk of Complication if Not Cared For in Hospital Post Hospital Care: D/C Habitat Management Coordinator 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
[2018-07-03] MEDS: LATANOPROST 0.005% OPH SOLN 2.5 ML OU SCH (21:55)
[2018-07-03] MEDS: WARFARIN SODIUM 5 MG TABLET PO SCH (21:55)
[2018-07-03] MEDS ORDERED: WARFARIN SODIUM 4.5 MG PO SCH (22:00)
[2018-07-03] MEDS ORDERED: WARFARIN SODIUM 2.5 MG TABLET PO SCH (22:00)
[2018-07-03] MEDS ORDERED: WARFARIN SODIUM 2 MG TABLET PO SCH (22:00)
[2018-07-03] MEDS: MELATONIN 3 MG TABLET PO SCH (23:17)
[2018-07-04] MEDS: GABAPENTIN 300 MG CAPSULE PO SCH ×3 (05:20→21:29)
[2018-07-04 05:49] LABS: INTERNATIONAL RATION (INR) 1.82
[2018-07-04] MEDS: OXYCODONE-ACETAMINOPHEN 5-325 MG TABLET PO PRN (08:09)
[2018-07-04] MEDS: TIOTROPIUM BROMIDE DPI 5 CAP/KIT (18 MCG/CAP) IH SCH (09:17)
[2018-07-04] MEDS: BUDESONIDE/FORMOTEROL 160-4.5 MCG 60 PUFF/6 GM MDI IH SCH ×2 (09:21→21:30)
[2018-07-04] MEDS: VALSARTAN 40 MG TABLET PO SCH (09:24)
[2018-07-04] MEDS: ACETAZOLAMIDE 500 MG CAPSULE.SA PO SCH (09:27)
[2018-07-04] MEDS: CALCIUM CARBONATE 250 MG/VITAMIN D3 125 UNIT TABLET PO SCH (09:30)
[2018-07-04] MEDS: DILTIAZEM HCL 120 MG CAP.SR.24H PO SCH (09:31)
[2018-07-04] MEDS: CITALOPRAM HYDROBROMIDE 20 MG TABLET PO SCH (09:31)
[2018-07-04] MEDS: MULTIVITAMIN TABLET PO SCH (09:31)
[2018-07-04] MEDS: DOCUSATE SODIUM 100 MG CAPSULE PO SCH (09:31)
[2018-07-04] MEDS: METOPROLOL SUCCINATE 25 MG TAB.SR.24H PO SCH (09:32)
--- NOTE | 2018-07-04 19:01 | PDOC PROGRESS REPORT ---
Subjective Progress Note for:: 07/04/18 Subjective:: No chest pain or difficulty with breathing. No coughing, fever or chills. No abdominal pain, nausea or vomiting. Complain about multiple joints aches and pain. Reason For Visit: HEART FAILURE Physical Exam Vital Signs: Temp Pulse Resp BP Pulse Ox 98.1 F 54 L 18 124/47 L 95 07/04/18 14:57 07/04/18 14:57 07/04/18 14:57 07/04/18 14:57 07/04/18 14:57 Intake & Output 07/03/18 07/04/18 07/05/18 06:59 06:59 06:59 Intake Total 322 150 Balance 322 150 Weight 43.8 kg 45.2 kg Physical Exam: General appearance: PRESENT: no acute distress, thin Head exam: PRESENT: atraumatic, normocephalic Ear exam: PRESENT: normal external ear exam Mouth exam: PRESENT: moist Teeth exam: PRESENT: poor dentition Respiratory exam: PRESENT: clear to auscultation leslie Cardiovascular exam: PRESENT: irregular rhythm, +S1, +S2. ABSENT: diastolic murmur, systolic murmur Vascular exam: ABSENT: pallor GI/Abdominal exam: PRESENT: normal bowel sounds, soft. ABSENT: distended, guarding, mass, organomegaly, rebound, tenderness Extremities exam: ABSENT: pedal edema Neurological exam: PRESENT: alert, awake, oriented to person, oriented to place , oriented to time, oriented to situation, CN II-XII grossly intact. ABSENT: motor sensory deficit Psychiatric exam: PRESENT: appropriate affect, normal mood. ABSENT: homicidal ideation, suicidal ideation Skin exam: PRESENT: dry, warm Results Laboratory Results: 07/03/18 05:36 07/03/18 05:36 07/01/18 07/01/18 07/01/18 06:31 06:31 12:34 Creatine Kinase 58 77 CK-MB (CK-2) 2.55 Troponin I < 0.012 07/01/18 07/01/18 07/01/18 12:34 19:05 19:05 Creatine Kinase 95 CK-MB (CK-2) 2.28 2.09 Troponin I < 0.012 < 0.012 Impressions: Chest X-Ray 06/30/18 00:00 IMPRESSION: COPD WITH CHRONIC SCARRING. INTERVAL DEVELOPMENT OF A MODERATE LEFT PLEURAL EFFUSION. Wrist X-Ray 07/01/18 00:42 IMPRESSION: 1. No acute fracture or dislocation. 2010 [employer]- All Rights Reserved Chest/Abdomen CTA 07/01/18 00:44 IMPRESSION:No evidence of pulmonary embolus Small left pleural effusion Bronchial wall thickening suggesting bronchitis which may be acute or chronic in nature but appears similar to the previous study Areas of probable scarring or chronic atelectasis in the lung bases Cardiac enlargement Assessment & Plan - Diagnosis (1) Acute on chronic diastolic (congestive) heart failure Is this a current diagnosis for this admission?: Yes (2) Chronic atrial fibrillation Is this a current diagnosis for this admission?: Yes (3) COPD (chronic obstructive pulmonary disease) Qualifiers: COPD type: unspecified COPD Qualified Code(s): J44.9 - Chronic obstructive pulmonary disease, unspecified Is this a current diagnosis for this admission?: Yes (4) Pleural effusion Is this a current diagnosis for this admission?: Yes (5) HTN (hypertension) Qualifiers: Hypertension type: essential hypertension Qualified Code(s): I10 - Essential (primary) hypertension Is this a current diagnosis for this admission?: Yes (6) HLD (hyperlipidemia) Qualifiers: Hyperlipidemia type: unspecified Qualified Code(s): E78.5 - Hyperlipidemia , unspecified Is this a current diagnosis for this admission?: Yes (7) CAD (coronary artery disease) Qualifiers: Coronary Disease-Associated Artery/Lesion type: [place] artery [place] vs. transplanted heart: [place] heart Associated angina: without angina Qualified Code(s): I25.10 - Atherosclerotic heart disease of [place] coronary artery without angina pectoris Is this a current diagnosis for this admission?: Yes (8) Mixed anxiety and depressive disorder Is this a current diagnosis for this admission?: Yes (9) Chronic prescription opiate use Is this a current diagnosis for this admission?: Yes (10) Chronic pain syndrome Is this a current diagnosis for this admission?: Yes - Time Time Spent with patient: 25-34 minutes Medications reviewed and adjusted accordingly: Yes Anticipated discharge: Home Within: Other - Inpatient Certification Based on my medical assessment, after consideration of the patient's comorbidities, presenting symptoms, or acuity I expect that the services needed warrant INPATIENT care.: Yes I certify that my determination is in accordance with my understanding of Medicare's requirements for reasonable and necessary INPATIENT services [42 CFR 412.3e].: Yes Medical Necessity: Need Close Monitoring Due to Risk of Patient Decompensation, Need For Continuous Telemetry Monitoring, Need for Pain Control, Risk of Complication if Not Cared For in Hospital Post Hospital Care: D/C Radial Arm Saw Operator 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
[2018-07-04] MEDS: MELATONIN 3 MG TABLET PO SCH (21:29)
[2018-07-04] MEDS: WARFARIN SODIUM 5 MG TABLET PO SCH (21:31)
[2018-07-05] MEDS: OXYCODONE-ACETAMINOPHEN 5-325 MG TABLET PO PRN ×3 (00:07→16:09)
[2018-07-05] MEDS: LATANOPROST 0.005% OPH SOLN 2.5 ML OU SCH (00:11)
[2018-07-05] MEDS: GABAPENTIN 300 MG CAPSULE PO SCH ×2 (05:36→13:58)
[2018-07-05 07:25] LABS: INTERNATIONAL RATION (INR) 1.95; PROTHROMBIN TIME 23.2 SEC (11.4-15.4)
[2018-07-05] MEDS: DILTIAZEM HCL 120 MG CAP.SR.24H PO SCH (10:23)
[2018-07-05] MEDS: CALCIUM CARBONATE 250 MG/VITAMIN D3 125 UNIT TABLET PO SCH (10:27)
[2018-07-05] MEDS: METOPROLOL SUCCINATE 25 MG TAB.SR.24H PO SCH (10:28)
[2018-07-05] MEDS: DOCUSATE SODIUM 100 MG CAPSULE PO SCH (10:29)
[2018-07-05] MEDS: MULTIVITAMIN TABLET PO SCH (10:29)
[2018-07-05] MEDS: CITALOPRAM HYDROBROMIDE 20 MG TABLET PO SCH (10:29)
[2018-07-05] MEDS: VALSARTAN 40 MG TABLET PO SCH (10:32)
[2018-07-05] MEDS: ACETAZOLAMIDE 500 MG CAPSULE.SA PO SCH (10:32)
[2018-07-05] MEDS: TIOTROPIUM BROMIDE DPI 5 CAP/KIT (18 MCG/CAP) IH SCH (10:33)
[2018-07-05] MEDS: BUDESONIDE/FORMOTEROL 160-4.5 MCG 60 PUFF/6 GM MDI IH SCH (10:36)
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
[2018-07-05 17:15] VITALS: BP 146/35
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
== END 2018-07-05 18:17 | disposition home health service (06) | DRG 293 ==
LOC: ER 15:14 → EH 07-01 00:09 → 3S 07-01 16:03
PROVIDERS: ADMIT Internal Medicine Geriatric Medicine; ATTEND Internal Medicine Geriatric Medicine
DX: I11.0 Hypertensive heart disease with heart failure (principal); I50.33 Acute on chronic diastolic (congestive) heart failure; J43.9 Emphysema, unspecified; F32.9 Major depressive disorder, single episode, unspecified; M19.90 Unspecified osteoarthritis, unspecified site; Z87.891 Personal history of nicotine dependence; I25.10 Atherosclerotic heart disease of native coronary artery without angina pectoris; E78.5 Hyperlipidemia, unspecified; I48.2 Chronic atrial fibrillation; F41.8 Other specified anxiety disorders; Z79.891 Long term (current) use of opiate analgesic; G89.4 Chronic pain syndrome; Z79.01 Long term (current) use of anticoagulants; Z82.49 Family history of ischemic heart disease and other diseases of the circulatory system; Z88.8 Allergy status to other drugs, medicaments and biological substances; Z91.030 Bee allergy status; Z83.3 Family history of diabetes mellitus; Z82.3 Family history of stroke
CPT/HCPCS: 36415; 71046; 71275; 80048; 80053; 80061; 82550; 82553; 82803; 83036; 83735; 83880; 84439; 84443; 84484; 85025; 85610; 85730; 87086; 93005; 93010; 93306; 99285; J1650; J1940; J3490; J7620

== ENCOUNTER 2018-11-13 20:08 | Emergency (ER) | payer MEDICARE, OTHER ==
--- NOTE | 2018-11-13 20:24 | ER Document Report ---
ED Respiratory Problem - General Chief Complaint: Shortness Of Breath Stated Complaint: SHORTNESS OF BREATH Time Seen by Provider: 11/13/18 20:24 Primary Care Provider: АНДРЕЙ SUTTON MD [Primary Care Provider] - Follow up as needed Mode of Arrival: Ambulatory Information source: Patient, Relative Notes: HISTORY OF PRESENT ILLNESS: Patient is a 73-year-old female with a significant past medical history of multiple health conditions including COPD and coronary disease who uses 2 L of home oxygen all the time who presents with trouble breathing. Location: Chest Onset: Gradual over the last 2-3 days Alleviation: None Provocation: "Doing too much" Quality: "It is just hard to breathe" Radiation: None Severity: Moderate Timing: Constant History of CAD: Yes Associated symptoms: Patient denies fevers or chills, no chest pain, no swelling of the extremities Sick contacts: Yes, multiple family members have had "a cold" REVIEW OF SYSTEMS: CONSTITUTIONAL : Denies fever or chills, no sweats. Denies recent illness. EENT: Denies eye, ear, throat, or mouth pain or symptoms. Denies nasal or sinus congestion. CARDIOVASCULAR: Denies chest pain. Denies swelling of the legs. RESPIRATORY: Positive for increased cough but denies chest congestion. Positive for shortness of breath. Denies wheezing. GASTROINTESTINAL: Denies abdominal pain. Denies nausea, vomiting, or diarrhea. Denies constipation. GENITOURINARY: Denies difficulty urinating, painful urination, burning, frequency, or blood in urine. FEMALE GENITOURINARY: Denies vaginal bleeding, abnormal or irregular periods. MUSCULOSKELETAL: Denies neck or back pain or joint pain or swelling. SKIN: Denies rash or skin lesions. HEMATOLOGIC : Denies easy bruising or bleeding. LYMPHATIC: Denies swollen, enlarged glands. NEUROLOGICAL: Denies altered mental status or loss of consciousness. Denies headache. Denies weakness or paralysis or loss of use of either side. Denies problems with gait or speech. Denies sensory or motor loss. PSYCHIATRIC: Denies anxiety or stress or depression. All other systems reviewed and negative. PHYSICAL EXAMINATION: GENERAL: Frail-appearing and in no acute distress. HEAD: Atraumatic, normocephalic. No scalp deformity, depression, or crepitance. EYES: Pupils are 2mm and equal/round/reactive to light, extraocular movements intact, sclera anicteric, conjunctiva are normal. ENT: Nares patent bilaterally, oropharynx. Moist mucous membranes. No tonsil hypertrophy. NECK: Normal range of motion, supple without lymphadenopathy. LUNGS: Breath sounds distant and diminished bilaterally with faint occasional wheezes.. No rales or rhonchi. HEART: Regular rate and rhythm without murmurs, rubs, or gallops. 2+ peripheral pulses. Normal capillary refill. ABDOMEN: Soft, nontender, nondistended. Normoactive bowel sounds. No guarding, no rebound. No masses appreciated. BACK: Normal contour, no midline tenderness. Rectal exam deferred. GENITAL/PELVIC: Deferred. EXTREMITIES: Normal range of motion, no pitting or edema. No cyanosis. NEUROLOGICAL: No focal neurological deficits. Moves all extremities spontaneously and on command. PSYCH: Normal mood, normal affect. No suicidal thoughts/ideations. No homocidal thoughts/ideations. No hallucinations. SKIN: Warm, dry, normal turgor, no rashes or lesions noted. ASSESSMENT AND PLAN: This patient is a 73-year-old female who presents with difficulty breathing with a history of heart failure, COPD, and coronary disease. Could represent viral syndrome versus COPD exacerbation versus pneumonia. Cardiac etiology is less likely but could include heart failure with pulmonary edema. 1. Will obtain labs, cardiac enzymes, BNP, chest x-ray, and EKG. 2. Will consider IV antibiotics if evidence of infection, could also consider IV Lasix if evidence of heart failure with fluid overload. TRAVEL OUTSIDE OF THE [place] IN LAST 30 DAYS: No - Related Data Allergies/Adverse Reactions: bee pollen [Bee Pollen] Allergy (Unknown, Verified 01/15/18 08:05) propoxyphene [From Darvocet-N] Allergy (Verified 01/15/18 08:05) venom-wasp [Wasp Venom] Allergy (Verified 01/15/18 08:05) Past Medical History - General Information source: Patient, Relative - Social History Smoking Status: Current Some Day Smoker Chew tobacco use (# tins/day): No Frequency of alcohol use: None Drug Abuse: None Lives with: Family Family History: COPD, Hypertension Patient has suicidal ideation: No Patient has homicidal ideation: No - Past Medical History Cardiac Medical History: Reports: Hx Atrial Fibrillation, Hx Congestive Heart Failure, Hx Coronary Artery Disease, Hx Hypercholesterolemia, Hx Hypertension Pulmonary Medical History: Reports: Hx Bronchitis, Hx COPD - stage 3, Hx Pneumonia EENT Medical History: Reports: None Neurological Medical History: Reports: None Endocrine Medical History: Reports: None Renal/ Medical History: Reports: None. Denies: Hx Peritoneal Dialysis Malignancy Medical History: Reports: Hx Breast Cancer - right, over 10 years ago GI Medical History: Reports: Hx Ulcer Musculoskeletal Medical History: Reports Hx Arthritis, Reports Hx Musculoskeletal Deformity, Reports Hx Musculoskeletal Trauma Skin Medical History: Reports None Psychiatric Medical History: Reports: Hx Anxiety, Hx Depression Traumatic Medical History: Reports: Hx Fractures Infectious Medical History: Reports: None Past Surgical History: Reports: Hx Breast Surgery - lumpectomy, needle biopsy - Immunizations Immunizations up to date: Yes Hx Diphtheria, Pertussis, Tetanus Vaccination: Yes Physical Exam - Vital signs Vitals: Temp 102.6 F H 11/13/18 20:12 Course - Re-evaluation Re-evalutation: 11/14/18 00:22 Cardiac enzymes are negative. Patient does have evidence of increased pulmonary edema on chest x-ray as well as an elevated BNP. She will be given IV Lasix and we will reassess for possible discharge. 11/14/18 03:11 Patient is able to put out large amount of urine. She will be discharged home with return precautions and follow-up. Patient states she agrees and und erstands plan. - Vital Signs Vital signs: Temp Pulse Resp BP Pulse Ox 100.1 F 24 H 116/39 L 94 11/14/18 00:01 11/14/18 01:01 11/14/18 01:01 11/14/18 01:01 - Laboratory Result Diagrams: 11/13/18 20:20 11/13/18 20:20 Laboratory results interpreted by me: 11/13/18 11/13/18 11/13/18 20:20 20:20 20:20 RBC 3.56 L Hgb 10.7 L Hct 34.2 L MCHC 31.4 L RDW 16.8 H Seg Neutrophils % 88.2 H Lymphocytes % 5.2 L Absolute Neutrophils 8.6 H ABG pH ABG pO2 ABG O2 Saturation Carbon Dioxide 21 L BUN 31 H Creatinine 1.45 H Est GFR ( Amer) 43 L Est GFR (Non-Af Amer) 35 L Glucose 116 H ALT 8 L NT-Pro-B Natriuret Pep 3600 H Urine Urobilinogen 11/13/18 11/13/18 23:27 23:35 RBC Hgb Hct MCHC RDW Seg Neutrophils % Lymphocytes % Absolute Neutrophils ABG pH 7.32 L ABG pO2 71.6 L ABG O2 Saturation 93.1 L Carbon Dioxide BUN Creatinine Est GFR ( Amer) Est GFR (Non-Af Amer) Glucose ALT NT-Pro-B Natriuret Pep Urine Urobilinogen 2.0 H - Diagnostic Test Radiology reviewed: Image reviewed, Reports reviewed - EKG Interpretation by Me EKG shows normal: Sinus rhythm Rate: Normal Rhythm: NSR [place]/QRS: No: Right axis deviation, Left axis deviation, RBBB, LBBB, IVCD, LAHB/LAFB, LPHB/LPFB, Bifasicular block Voltage: No: Increased voltage, Consistant with LVH, Decreased voltage, Throughout, Limb leads P Waves: No: RONNY, LAE, Absent, AV Dissociation, Other Heart block present: No: 1st Degree, Mobitz 1, Mobitz 2, CHB (3rd degree block) When compared to previous EKG there are: No significant change Discharge - Discharge Clinical Impression: Pulmonary edema Qualifiers: Chronicity: chronic Qualified Code(s): J81.1 - Chronic pulmonary edema Condition: Good Disposition: HOME, SELF-CARE Instructions: Congestive Heart Failure ([facility]) Additional Instructions: You have been evaluated in the Emergency Department for difficulty breathing related to fluid in your lungs. Because of this, you were given IV fluid medications to help draw off the fluid. Please follow-up with your [primary physician] as instructed in the next few days or next week to be rechecked. Return to the Emergency Department if you experience chest pain, worsening breathing, increased swelling of the legs, or any other concerning symptoms. Prescriptions: Furosemide [Lasix 20 mg Tablet] 20 mg PO DAILY #30 tablet Referrals: АНДРЕЙ SUTTON MD [Primary Care Provider] - Follow up as needed Print Language: Vietnamese
[2018-11-13] MEDS ORDERED: ACETAMINOPHEN 325 MG TABLET PO ONE (20:27)
--- NOTE | 2018-11-13 21:09 | EKG REPORT ---
SEVERITY:- ABNORMAL ECG - ATRIAL FIBRILLATION [Remains] LEFT AXIS DEVIATION [Now Present] BORDERLINE T ABNORMALITIES, ANTERIOR LEADS [Insig. Chg.] : Confirmed by: Farnaz Aceves 13-Nov-2018 21:08:14
[2018-11-13 21:45] LABS: ABSOLUTE LYMPHOCYTES (AUTO) 0.5 10^3/uL (0.5-4.7); ABSOLUTE MONOCYTES (AUTO) 0.6 10^3/uL (0.1-1.4); ABSOLUTE NEUT (AUTO) 8.6 10^3/uL (1.7-8.2); BASOPHILS % (AUTO) 0.2 % (0-2); HEMATOCRIT 34.2 % (36.0-47.0); HEMOGLOBIN 10.7 g/dL (12.0-15.5); LYMPHOCYTES % (AUTO) 5.2 % (13-45); MEAN CORPUSCULAR HEMOGLOBIN 30.2 pg (27.0-33.4); MEAN CORPUSCULAR HGB CONC 31.4 g/dL (32.0-36.0); MEAN CORPUSCULAR VOLUME 96 fl (80-97); MONOCYTES % (AUTO) 6.4 % (3-13); PLATELET COUNT 184 10^3/uL (150-450); RED BLOOD COUNT 3.56 10^6/uL (3.72-5.28); RED CELL DISTRIBUTION WIDTH 16.8 % (11.5-14.0); SEGMENTED NEUTROPHILS % (AUTO) 88.2 % (42-78); TOTAL CELLS COUNTED % (AUTO) 100 %; WHITE BLOOD COUNT 9.8 10^3/uL (4.0-10.5)
[2018-11-13 21:54] LABS: ALANINE AMINOTRANSFERASE 8 U/L (9-52); ALBUMIN 3.7 g/dL (3.5-5.0); ALKALINE PHOSPHATASE 68 U/L (38-126); ANION GAP 12 (5-19); ASPARTATE AMINO TRANSFERASE 30 U/L (14-36); BILIRUBIN,DIRECT 0.4 mg/dL (0.0-0.4); BILIRUBIN,TOTAL 0.4 mg/dL (0.2-1.3); BLOOD UREA NITROGEN 31 mg/dL (7-20); CALCIUM 8.9 mg/dL (8.4-10.2); CARBON DIOXIDE 21 mmol/L (22-30); CHLORIDE 105 mmol/L (98-107); GLUCOSE 116 mg/dL (75-110); POTASSIUM 4.6 mmol/L (3.6-5.0); SODIUM 138.1 mmol/L (137-145); TOTAL PROTEIN 6.6 g/dL (6.3-8.2)
--- NOTE | 2018-11-13 22:02 | RADIOLOGY REPORT (SQ) ---
EXAM DESCRIPTION: XR CHEST 1 VIEW COMPLETED DATE/TME: 11/13/2018 21:31 CLINICAL HISTORY: 73 years, Female, Cough COMPARISON: 06/30/2018 chest NUMBER OF VIEWS: 1 TECHNIQUE: Portable chest LIMITATIONS: None. FINDINGS: Cardiomegaly. Mild interstitial edema with small bibasilar effusions. Surgical clips project over the right lung base. No pneumothorax. Atheromatous change thoracic aorta. Osteopenia. IMPRESSION: Cardiomegaly with mild interstitial edema and small bibasilar effusions copyright 2010 [employer]- All Rights Reserved
[2018-11-13 22:05] LABS: CREATINE KINASE MB 1.55 ng/mL (<4.55); TROPONIN I 0.027 ng/mL
[2018-11-13] MEDS ORDERED: FUROSEMIDE INJ/PF 40 MG/4 ML SDV IV ONE (23:08)
[2018-11-13 23:55] LABS: APPEARANCE,URINE SLIGHTLY-CLOUDY; BILIRUBIN,URINE NEGATIVE (NEGATIVE); GLUCOSE, URINE NEGATIVE (NEGATIVE); KETONES,URINE NEGATIVE (NEGATIVE); LEUKOCYTE ESTERASE,URINE NEGATIVE (NEGATIVE); NITRITE,URINE NEGATIVE (NEGATIVE); PROTEIN,URINE NEGATIVE (NEGATIVE); URINE SPECIFIC GRAVITY 1.023
[2018-11-14 00:01] LABS: COLOR,URINE YELLOW
[2018-11-14 00:10] LABS: ARTERIAL BLOOD BASE EXCESS -4.6 mmol/L; ARTERIAL BLOOD H2CO3 1.28 mmol/L (1.05-1.35); ARTERIAL BLOOD HCO3 21.3 mmol/L (20-24); ARTERIAL BLOOD O2 SATURATION 93.1 % (94-98); ARTERIAL BLOOD PCO2 42.5 mmHg (35-45); ARTERIAL BLOOD PH 7.32 (7.35-7.45); ARTERIAL BLOOD PO2 71.6 mmHg (80-100); ARTERIAL BLOOD TOTAL CO2 22.6 mmol/L (21-25)
[2018-11-14 00:11] LABS: ARTERIAL BLOOD FIO2 28%
[2018-11-14 03:12] VITALS: BP 130/42
== END 2018-11-14 03:50 | disposition home or self-care (01) ==
LOC: ER 20:08
DX: J81.1 Chronic pulmonary edema (principal); R06.02 Shortness of breath; R05 Cough; J44.9 Chronic obstructive pulmonary disease, unspecified; I25.10 Atherosclerotic heart disease of native coronary artery without angina pectoris; Z99.81 Dependence on supplemental oxygen; F17.200 Nicotine dependence, unspecified, uncomplicated
CPT/HCPCS: 93005; 99285; 96374; 36415; 87040; 82553; 82803; 85025; 80053; 81001; 84484; 83880; 71045; 93010; 36600; A9270; J1940

== ENCOUNTER 2018-11-20 12:50 | Inpatient (IN) | payer MEDICARE, OTHER ==
[2018-11-20 13:17] LABS: ABSOLUTE LYMPHOCYTES (AUTO) 1.3 10^3/uL (0.5-4.7); ABSOLUTE MONOCYTES (AUTO) 0.9 10^3/uL (0.1-1.4); BASOPHILS % (AUTO) 0.2 % (0-2); EOSINOPHILS % (AUTO) 0.1 % (0-6); MEAN CORPUSCULAR HEMOGLOBIN 29.9 pg (27.0-33.4); MEAN CORPUSCULAR HGB CONC 31.2 g/dL (32.0-36.0); MEAN CORPUSCULAR VOLUME 96 fl (80-97); PLATELET COUNT 280 10^3/uL (150-450); RED BLOOD COUNT 3.35 10^6/uL (3.72-5.28); RED CELL DISTRIBUTION WIDTH 16.9 % (11.5-14.0); SEGMENTED NEUTROPHILS % (AUTO) 77.7 % (42-78); TOTAL CELLS COUNTED % (AUTO) 100 %; WHITE BLOOD COUNT 10.3 10^3/uL (4.0-10.5)
[2018-11-20 13:28] LABS: ALANINE AMINOTRANSFERASE 20 U/L (9-52); ALBUMIN 3.7 g/dL (3.5-5.0); ALKALINE PHOSPHATASE 94 U/L (38-126); ANION GAP 12 (5-19); ASPARTATE AMINO TRANSFERASE 30 U/L (14-36); BILIRUBIN,DIRECT 0.3 mg/dL (0.0-0.4); BILIRUBIN,TOTAL 0.5 mg/dL (0.2-1.3); BLOOD UREA NITROGEN 32 mg/dL (7-20); CALCIUM 9.1 mg/dL (8.4-10.2); CARBON DIOXIDE 25 mmol/L (22-30); CHLORIDE 103 mmol/L (98-107); GLUCOSE 122 mg/dL (75-110); POTASSIUM 4.1 mmol/L (3.6-5.0)
[2018-11-20 13:41] LABS: VENOUS BLOOD BASE EXCESS -1.6 mmol/L; VENOUS BLOOD HCO3 26.3 mmol/L (20-32); VENOUS BLOOD PCO2 59.2 mmHg (35-63); VENOUS BLOOD PH 7.27 (7.30-7.42)
[2018-11-20 13:58] LABS: INTERNATIONAL RATION (INR) 2.87; PROTHROMBIN TIME 31.4 SEC (11.4-15.4)
[2018-11-20] MEDS ORDERED: NORMAL SALINE 1000 ML 1,000 ML IV ONE (14:08)
--- NOTE | 2018-11-20 14:50 | RADIOLOGY REPORT (SQ) ---
EXAM DESCRIPTION: CHEST SINGLE VIEW COMPLETED DATE/TIME: 11/20/2018 2:38 pm REASON FOR STUDY: altered mental status COMPARISON: Chest films 11/13/2018, 06/30/2018, 03/10/2018, 10/11/2017, 10/03/2017 EXAM PARAMETERS: NUMBER OF VIEWS: One view. TECHNIQUE: Single frontal radiographic view of the chest acquired. RADIATION DOSE: NA LIMITATIONS: None. FINDINGS: LUNGS AND PLEURA: Patchy bibasilar airspace disease, more prominent than on previous studi es. This could represent bibasilar pneumonia or atypical appearing pulmonary edema superimposed on o bstructive lung disease. No gross pleural effusions or pneumothorax MEDIASTINUM AND HILAR STRUCTURES: No masses. Contour normal. HEART AND VASCULAR STRUCTURES: Stable moderate cardiomegaly BONES: No acute findings. HARDWARE: Surgical clips right breast OTHER: No other significant finding. IMPRESSION: Patchy bibasilar airspace disease, either bibasilar pneumonia or atypical appearing pulm onary edema. TECHNICAL DOCUMENTATION: JOB ID: [id number] [employer]- All Rights Reserved Reading location - IP/workstation name: [email or web address]
[2018-11-20] MEDS ORDERED: CEFTRIAXONE 1 GM/D5W RTU 1 GM/50 ML RTUPB IV ONE (15:00)
[2018-11-20] MEDS ORDERED: AZITHROMYCIN INJ 500 MG VIAL IV ONE (15:00)
[2018-11-20 15:41] LABS: APPEARANCE,URINE SLIGHTLY-CLOUDY; BILIRUBIN,URINE NEGATIVE (NEGATIVE); GLUCOSE, URINE NEGATIVE (NEGATIVE); KETONES,URINE NEGATIVE (NEGATIVE); LEUKOCYTE ESTERASE,URINE NEGATIVE (NEGATIVE); NITRITE,URINE NEGATIVE (NEGATIVE); PROTEIN,URINE NEGATIVE (NEGATIVE); URINE SPECIFIC GRAVITY 1.018
[2018-11-20 15:43] LABS: COLOR,URINE YELLOW
--- NOTE | 2018-11-20 17:11 | ER Document Report ---
ED General - General Chief Complaint: Decreased Appetite Stated Complaint: ALTERED MENTAL STATUS Time Seen by Provider: 11/20/18 14:07 Notes: Patient is a 73-year-old female history of COPD and CHF that presents to the emergency department for chief complaint of shortness of breath, weakness and fatigue. Patient's been having symptoms for about a week and getting progressively worse, decreased appetite and decreased energy, she is not eating or drinking much at all. She does have COPD and she is been having a cough associated with this as well. Her family states she has been confused as well and forgetting things which is not typical for her. They were concerned so they brought her to the emergency department. She denies having any pain at this time, just feels generally weak. Past Medical History: Atrial fibrillation, COPD, hypertension, carotid artery stenosis status post CEA Past Surgical History: CEA Social History: Former smoker, denies current alcohol or drug use, lives at home with family Family History: Reviewed and noncontributory for presenting illness Allergies: Reviewed, see documented allergy list. REVIEW OF SYSTEMS: Other than noted above, the 12 point review of systems was reviewed with the patient and were negative, all pertinent findings are included in the HPI. PHYSICAL EXAMINATION: Vital signs reviewed, nursing noted reviewed. GENERAL: Frail-appearing female, appears uncomfortable HEAD: Atraumatic, normocephalic. EYES: Eyes appear normal, extraocular movements intact, sclera anicteric, conjunctiva are normal. ENT: nares patent, oropharynx clear without exudates. Dry mucous membranes. NECK: Normal range of motion, supple without lymphadenopathy LUNGS: Coarse lung sounds, throughout all bahena, diminished at the bases. HEART: Regular rate and rhythm without murmurs ABDOMEN: Soft, nontender, normoactive bowel sounds. No rebound, guarding, or rigidity. No masses appreciated. EXTREMITIES: Nontender, good range of motion, no pitting or edema. NEUROLOGICAL: No focal neurological deficits. Moves all extremities spontaneously Motor and sensory grossly intact on exam. PSYCH: Normal mood, normal affect. SKIN: Warm, Dry, normal turgor, no rashes or lesions noted on exposed skin TRAVEL OUTSIDE OF THE [place] IN LAST 30 DAYS: No - Related Data Allergies/Adverse Reactions: bee pollen [Bee Pollen] Allergy (Unknown, Verified 01/15/18 08:05) propoxyphene [From Darvocet-N] Allergy (Verified 01/15/18 08:05) venom-wasp [Wasp Venom] Allergy (Verified 01/15/18 08:05) Past Medical History - Social History Smoking Status: Former Smoker Frequency of alcohol use: None Drug Abuse: None Family History: COPD, Hypertension Patient has suicidal ideation: No Patient has homicidal ideation: No - Past Medical History Cardiac Medical History: Reports: Hx Atrial Fibrillation, Hx Congestive Heart Failure, Hx Coronary Artery Disease, Hx Hypercholesterolemia, Hx Hypertension Pulmonary Medical History: Reports: Hx Bronchitis, Hx COPD - stage 3, Hx Pneumonia Renal/ Medical History: Denies: Hx Peritoneal Dialysis Malignancy Medical History: Reports: Hx Breast Cancer - right, over 10 years ago GI Medical History: Reports: Hx Ulcer Musculoskeletal Medical History: Reports Hx Arthritis, Reports Hx Musculoskeletal Deformity, Reports Hx Musculoskeletal Trauma Psychiatric Medical History: Reports: Hx Anxiety, Hx Depression Traumatic Medical History: Reports: Hx Fractures Past Surgical History: Reports: Hx Breast Surgery - lumpectomy, needle biopsy - Immunizations Immunizations up to date: Yes Hx Diphtheria, Pertussis, Tetanus Vaccination: Yes Physical Exam - Vital signs Vitals: Pulse Ox 95 11/20/18 12:57 Course - Re-evaluation Re-evalutation: Patient seen and examined vital signs reviewed. Laboratory data and imaging were ordered as appropriate for the patient's presenting symptoms and complaint, with consideration of any critical or life threatening conditions that may be associated with their obtained history and exam as noted above. Patient was treated with small IV fluid bolus, and started on IV antibiotics Results were reviewed when available and demonstrated chest x-ray concerning for possible pneumonia, patient also do an elevation in her creatinine, concerning for possible acute kidney injury on chronic kidney disease most likely secondary to dehydration The patient was re-evaluated and was stable, somewhat improved Evaluation was most consistent with community-acquired pneumonia, with acute kidney injury Results were discussed with the patient at this point after careful consideration I feel that that patient should be admitted to the hospital. This was discussed with the patient that it is in the best interest for their care to be admitted for further evaluation and management. Patient agreed with this plan of care. A call was placed to the admitted physician, Dr. Morataya who graciously accepted the patient onto their service. *Note is created using voice recognition software and may contain spelling, syntax or grammatical errors. Laboratory 02/11/20/18 11/20/18 12:41 12:41 13:20 WBC 10.3 RBC 3.35 L Hgb 10.0 L Hct 32.0 L MCV 96 MCH 29.9 MCHC 31.2 L RDW 16.9 H Plt Count 280 Seg Neutrophils % 77.7 Lymphocytes % 13.0 Monocytes % 9.0 Eosinophils % 0.1 Basophils % 0.2 Absolute Neutrophils 8.0 Absolute Lymphocytes 1.3 Absolute Monocytes 0.9 Absolute Eosinophils 0.0 Absolute Basophils 0.0 PT 31.4 H INR 2.87 VBG pH VBG pCO2 VBG HCO3 VBG Base Excess Sodium 140.0 Potassium 4.1 Chloride 103 Carbon Dioxide 25 Anion Gap 12 BUN 32 H Creatinine 1.86 H Est GFR ( Amer) 32 L Est GFR (Non-Af Amer) 27 L Glucose 122 H POC Glucose Lactic Acid Calcium 9.1 Total Bilirubin 0.5 Direct Bilirubin 0.3 Neonat Total Bilirubin Not Reportable Neonat Direct Bilirubin Not Reportable Neonat Indirect Bili Not Reportable AST 30 ALT 20 Alkaline Phosphatase 94 Total Protein 7.0 Albumin 3.7 Urine Color Urine Appearance Urine pH Ur Specific [place] Urine Protein Urine Glucose (UA) Urine Ketones Urine Blood Urine Nitrite Urine Bilirubin Urine Urobilinogen Ur Leukocyte Esterase Urine WBC (Auto) Urine RBC (Auto) U Hyaline Cast (Auto) Urine Bacteria (Auto) Squamous Epi Cells Auto Urine Mucus (Auto) Urine Ascorbic Acid 11/20/18 11/20/18 11/20/18 13:20 13:20 14:30 WBC RBC Hgb Hct MCV MCH MCHC RDW Plt Count Seg Neutrophils % Lymphocytes % Monocytes % Eosinophils % Basophils % Absolute Neutrophils Absolute Lymphocytes Absolute Monocytes Absolute Eosinophils Absolute Basophils PT INR VBG pH 7.27 L VBG pCO2 59.2 VBG HCO3 26.3 VBG Base Excess -1.6 Sodium Potassium Chloride Carbon Dioxide Anion Gap BUN Creatinine Est GFR ( Amer) Est GFR (Non-Af Amer) Glucose POC Glucose 97 Lactic Acid 1.0 Calcium Total Bilirubin Direct Bilirubin Neonat Total Bilirubin Neonat Direct Bilirubin Neonat Indirect Bili AST ALT Alkaline Phosphatase Total Protein Albumin Urine Color Urine Appearance Urine pH Ur Specific [place] Urine Protein Urine Glucose (UA) Urine Ketones Urine Blood Urine Nitrite Urine Bilirubin Urine Urobilinogen Ur Leukocyte Esterase Urine WBC (Auto) Urine RBC (Auto) U Hyaline Cast (Auto) Urine Bacteria (Auto) Squamous Epi Cells Auto Urine Mucus (Auto) Urine Ascorbic Acid 11/20/18 15:20 WBC RBC Hgb Hct MCV MCH MCHC RDW Plt Count Seg Neutrophils % Lymphocytes % Monocytes % Eosinophils % Basophils % Absolute Neutrophils Absolute Lymphocytes Absolute Monocytes Absolute Eosinophils Absolute Basophils PT INR VBG pH VBG pCO2 VBG HCO3 VBG Base Excess Sodium Potassium Chloride Carbon Dioxide Anion Gap BUN Creatinine Est GFR ( Amer) Est GFR (Non-Af Amer) Glucose POC Glucose Lactic Acid Calcium Total Bilirubin Direct Bilirubin Neonat Total Bilirubin Neonat Direct Bilirubin Neonat Indirect Bili AST ALT Alkaline Phosphatase Total Protein Albumin Urine Color YELLOW Urine Appearance SLIGHTLY-CLOUDY Urine pH 5.0 Ur Specific [place] 1.018 Urine Protein NEGATIVE Urine Glucose (UA) NEGATIVE Urine Ketones NEGATIVE Urine Blood NEGATIVE Urine Nitrite NEGATIVE Urine Bilirubin NEGATIVE Urine Urobilinogen 2.0 H Ur Leukocyte Esterase NEGATIVE Urine WBC (Auto) 1 Urine RBC (Auto) 1 U Hyaline Cast (Auto) 56 Urine Bacteria (Auto) TRACE Squamous Epi Cells Auto <1 Urine Mucus (Auto) FEW Urine Ascorbic Acid NEGATIVE Chest X-Ray 11/20/18 14:11 IMPRESSION: Patchy bibasilar airspace disease, either bibasilar pneumonia or atypical appearing pulmonary edema. - Vital Signs Vital signs: Temp Pulse Resp BP Pulse Ox 98.6 F 78 18 137/38 H 94 11/20/18 20:58 11/20/18 21:00 11/20/18 21:00 11/20/18 20:58 11/20/18 21:00 - Laboratory Result Diagrams: 11/20/18 12:41 11/20/18 12:41 Laboratory results interpreted by me: 11/20/18 11/20/18 11/20/18 12:41 12:41 13:20 RBC 3.35 L Hgb 10.0 L Hct 32.0 L MCHC 31.2 L RDW 16.9 H PT 31.4 H VBG pH BUN 32 H Creatinine 1.86 H Est GFR ( Amer) 32 L Est GFR (Non-Af Amer) 27 L Glucose 122 H Urine Urobilinogen 11/20/18 11/20/18 13:20 15:20 RBC Hgb Hct MCHC RDW PT VBG pH 7.27 L BUN Creatinine Est GFR ( Amer) Est GFR (Non-Af Amer) Glucose Urine Urobilinogen 2.0 H - EKG Interpretation by Me Additional EKG results interpreted by me: EKG demonstrates atrial fibrillation with a ventricular rate of 77 bpm, normal axis, normal intervals, no evidence of acute ischemia on this EKG, compared with prior EKG from 11/13/2018, without significant change. Discharge - Discharge Clinical Impression: KIAN (acute kidney injury), Dehydration Community acquired pneumonia Qualifiers: Laterality: unspecified laterality Qualified Code(s): J18.9 - Pneumonia, unspec ified organism Condition: Stable Disposition: ADMITTED INPATIENT Admitting Provider: [facility] Admitted: [facility]
[2018-11-20] MEDS ORDERED: OXYCODONE-ACETAMINOPHEN 5-325 MG TABLET PO ONE (19:34)
[2018-11-20] MEDS: NORMAL SALINE 1000 ML 1,000 ML IV PRN (20:48)
[2018-11-20] MEDS: IPRATROPIUM/ALBUTEROL 0.5-2.5 MG/3 ML AMPUL NEB SCH (21:00)
--- NOTE | 2018-11-21 00:26 | EKG REPORT ---
SEVERITY:- ABNORMAL ECG - ATRIAL FIBRILLATION BORDERLINE T ABNORMALITIES, ANTERIOR LEADS : Confirmed by: Araceli Magaña MD 21-Nov-2018 00:25:21
[2018-11-21 05:13] LABS: ABSOLUTE LYMPHOCYTES (AUTO) 0.8 10^3/uL (0.5-4.7); ABSOLUTE MONOCYTES (AUTO) 0.7 10^3/uL (0.1-1.4); ABSOLUTE NEUT (AUTO) 8.1 10^3/uL (1.7-8.2); BASOPHILS % (AUTO) 0.1 % (0-2); EOSINOPHILS % (AUTO) 0.2 % (0-6); HEMATOCRIT 30.6 % (36.0-47.0); HEMOGLOBIN 9.6 g/dL (12.0-15.5); LYMPHOCYTES % (AUTO) 8.7 % (13-45); MEAN CORPUSCULAR HEMOGLOBIN 29.3 pg (27.0-33.4); MEAN CORPUSCULAR HGB CONC 31.5 g/dL (32.0-36.0); MEAN CORPUSCULAR VOLUME 93 fl (80-97); MONOCYTES % (AUTO) 7.6 % (3-13); PLATELET COUNT 233 10^3/uL (150-450); RED BLOOD COUNT 3.29 10^6/uL (3.72-5.28); RED CELL DISTRIBUTION WIDTH 16.3 % (11.5-14.0); SEGMENTED NEUTROPHILS % (AUTO) 83.4 % (42-78); TOTAL CELLS COUNTED % (AUTO) 100 %; WHITE BLOOD COUNT 9.7 10^3/uL (4.0-10.5)
[2018-11-21] MEDS: LANSOPRAZOLE 30 MG TAB.RAP.DR PO SCH (05:15)
[2018-11-21 05:32] LABS: ANION GAP 8 (5-19); BLOOD UREA NITROGEN 22 mg/dL (7-20); CALCIUM 8.5 mg/dL (8.4-10.2); CARBON DIOXIDE 25 mmol/L (22-30); CHLORIDE 109 mmol/L (98-107); GLUCOSE 100 mg/dL (75-110); POTASSIUM 3.7 mmol/L (3.6-5.0); SODIUM 142.2 mmol/L (137-145)
[2018-11-21] MEDS: IPRATROPIUM/ALBUTEROL 0.5-2.5 MG/3 ML AMPUL NEB SCH ×4 (08:04→21:06)
[2018-11-21] MEDS ORDERED: ALBUTEROL SULFATE HFA (90 MCG/PUFF) 200 PUFF/8.5 GM MDI IH PRN (08:06)
[2018-11-21] MEDS ORDERED: (PENDING PHARMACY ID) (Warfarin Sodium 3 MG) PO SCH (10:00)
[2018-11-21] MEDS ORDERED: (PENDING PHARMACY ID) (Calcium Carbonate/Vitamin D3 [Oyster Shell 500-Vit D3 200 Tb] 1 TAB PO SCH (10:00)
[2018-11-21] MEDS: CALCIUM CARBONATE 250 MG/VITAMIN D3 125 UNIT TABLET PO SCH (10:46)
[2018-11-21] MEDS: ACETAMINOPHEN 325 MG TABLET PO PRN (10:46)
[2018-11-21] MEDS: DILTIAZEM HCL 120 MG CAP.SR.24H PO SCH (10:47)
[2018-11-21] MEDS: MULTIVITAMIN TABLET PO SCH (10:47)
[2018-11-21] MEDS: METOPROLOL SUCCINATE 25 MG TAB.SR.24H PO SCH (10:47)
[2018-11-21] MEDS: CITALOPRAM HYDROBROMIDE 20 MG TABLET PO SCH (10:47)
[2018-11-21] MEDS: VALSARTAN 40 MG TABLET PO SCH (10:47)
[2018-11-21] MEDS: DOCUSATE SODIUM 100 MG CAPSULE PO SCH (10:47)
[2018-11-21] MEDS: WARFARIN SODIUM 3 MG TABLET PO SCH (10:47)
[2018-11-21] MEDS: ACETAZOLAMIDE 500 MG CAPSULE.SA PO SCH (10:47)
[2018-11-21] MEDS: NORMAL SALINE 1000 ML 1,000 ML IV PRN (10:48)
[2018-11-21] MEDS: CEFTRIAXONE 1 GM/D5W RTU 1 GM/50 ML RTUPB IV SCH (10:48)
[2018-11-21] MEDS: BUDESONIDE/FORMOTEROL 160-4.5 MCG 60 PUFF/6 GM MDI IH SCH ×2 (10:48→18:05)
[2018-11-21] MEDS: TIOTROPIUM BROMIDE DPI 5 CAP/KIT (18 MCG/CAP) IH SCH (10:49)
[2018-11-21 12:16] LABS: A TYPE INFLUENZA AG NEGATIVE (NEGATIVE); B INFLUENZA AG NEGATIVE (NEGATIVE)
[2018-11-21] MEDS ORDERED: GABAPENTIN 300 MG CAPSULE PO SCH (14:00)
[2018-11-21] MEDS: AZITHROMYCIN 500 MG in DEXTROSE 5%-WATER 250 ML IV SCH (18:05)
--- NOTE | 2018-11-21 19:09 | PDOC H&P ---
History of Present Illness Admission Date/PCP: 11/20/18 18:04 АНДРЕЙ SUTTON Patient complains of: Shortness of breath, weakness and fatigue History of Present Illness: JUNAID VILCHIS is a 73 year old female patient known to my practice who presented to the ED with her family reporting episodes of confusion, worsening shortness of breath, weakness, and fatigue. Patient reported feeling cold all the time, chills but denied definite fever. There is associated decreased appetite and oral intake. Wet but unproductive cough and chest discomfort with coughing. Lilian samuel reported progressive worsening of her symptoms over last couple of days. Her initial ED evaluation was significant for bibasilar airspace disease process. Her morbidities include COPD, chronic congestive heart failure, chronic atrial fibrillation, Hypertension, Hyperlipidemia, CAD s/p stent angioplasty, and Carotid artery stenosis s/p CEA surgery, osteoarthritis with chronic pain syndrome, and Depression. Past Medical History Cardiac Medical History: Reports: Atrial Fibrillation, Congestive Heart Failure, Coronary Artery Disease, Hyperlipidema, Hypertension Pulmonary Medical History: Reports: Bronchitis, Chronic Obstructive Pulmonary Disease (COPD) - stage 3, Pneumonia Malignancy Medical History: Reports: Breast Cancer - right, over 10 years ago Musculoskeltal Medical History: Reports: Arthritis Psychiatric Medical History: Reports: Depression Social History Smoking Status: Former Smoker Frequency of Alcohol Use: None Hx Recreational Drug Use: No Drugs: None Hx Prescription Drug Abuse: No Family History Family History: COPD, Hypertension Parental Family History Reviewed: Yes Children Family History Reviewed: Yes Sibling(s) Family History Reviewed.: Yes Medication/Allergy Home Medications: Acetazolamide [Diamox Sequel 500 mg] 500 mg PO DAILY 07/01/18 Albuterol Sulfate [Proair HFA Inhalation Aerosol 8.5 gm MDI] 2 puff IH Q4HP PRN 07/01/18 Budesonide/Formoterol Fumarate [Symbicort HFA 160-4.5 mcg Inhaler 6 gm] 2 puff IH BID 07/01/18 Calcium Carbonate/Vitamin D3 [Oyster Shell 500-Vit D3 200 Tb] 1 tab PO DAILY 07/01/18 Citalopram Hydrobromide [Celexa 20 mg Tablet] 20 mg PO DAILY 07/01/18 Diltiazem HCl [Diltiazem 24Hr Cd] 120 mg PO DAILY 07/01/18 Docusate Sodium [Colace 100 mg Capsule] 100 mg PO DAILY 07/01/18 Gabapentin [Neurontin 300 mg Capsule] 300 mg PO Q8 07/01/18 Latanoprost/Pf [Latanoprost 0.005% Eye Drop] 1 drop OU QHS 07/01/18 Melatonin [Melatonin 3 mg Tablet] 3 mg PO QHS 07/01/18 Metoprolol Succinate [Toprol Xl] 25 mg PO DAILY 07/01/18 Multivitamin [Multiple Vitamins] 1 tab PO DAILY 07/01/18 Pantoprazole Sodium [Protonix] 40 mg PO TID 07/01/18 Tiotropium [place] [Spiriva Handihaler 18 mcg/dose (30 Dose)] 1 cap IH DAILY 07/01/18 Tizanidine HCl [Zanaflex 4 mg Tablet] 4 mg PO Q8 07/01/18 Valsartan [Diovan 40 mg Tablet] 40 mg PO DAILY 07/01/18 Furosemide [Lasix 20 mg Tablet] 20 mg PO DAILY #30 tablet 11/14/18 Atorvastatin Calcium [Lipitor 40 mg Tablet] 40 mg PO QHS 11/20/18 Oxycodone HCl/Acetaminophen [Oxycodon-Acetaminophen 7.5-325] 1 tab PO TID PRN 11/20/18 Warfarin Sodium [Coumadin 3 mg Tablet] 3 mg PO DAILY 11/20/18 Allergies/Adverse Reactions: bee pollen [Bee Pollen] Allergy (Unknown, Verified 01/15/18 08:05) propoxyphene [From Darvocet-N] Allergy (Verified 01/15/18 08:05) venom-wasp [Wasp Venom] Allergy (Verified 01/15/18 08:05) Review of Systems Constitutional: PRESENT: chills, fatigue, fever(s), weakness Eyes: PRESENT: visual disturbances Ears: ABSENT: hearing changes Nose, Mouth, and Throat: ABSENT: headache(s), sore throat Cardiovascular: PRESENT: dyspnea on exertion Respiratory: PRESENT: cough, dyspnea. ABSENT: sputum Gastrointestinal: ABSENT: abdominal pain, constipation, diarrhea, hematemesis, hematochezia, nausea, vomiting Genitourinary: ABSENT: dysuria, hematuria Musculoskeletal: ABSENT: joint swelling Integumentary: ABSENT: rash, wounds Neurological: ABSENT: abnormal gait, abnormal speech, confusion, dizziness, focal weakness, syncope Psychiatric: ABSENT: anxiety, depression, homidical ideation, suicidal ideation Endocrine: PRESENT: cold intolerance Hematologic/Lymphatic: ABSENT: easy bleeding, easy bruising, lymphadenopathy Allergic/Immunologic: ABSENT: seasonal rhinorrhea Physical Exam Vital Signs: Temp Pulse Resp BP Pulse Ox 98.2 F 21 H 132/58 H 94 11/20/18 13:55 11/20/18 18:00 11/20/18 18:01 11/20/18 18:01 Intake & Output 11/19/18 11/20/18 11/21/18 06:59 06:59 06:59 Intake Total 50 Balance 50 General appearance: PRESENT: mild distress - 0n supplemental oxygen via nasal cannula at 2-3 L/min, thin Head exam: PRESENT: atraumatic, normocephalic Eye exam: PRESENT: conjunctiva pink, EOMI, PERRLA. ABSENT: scleral icterus Ear exam: PRESENT: normal external ear exam Mouth exam: PRESENT: moist Teeth exam: PRESENT: poor dentation Neck exam: PRESENT: full ROM. ABSENT: carotid bruit, JVD, lymphadenopathy, thyromegaly Respiratory exam: PRESENT: crackles, decreased breath sounds, rhonchi Cardiovascular exam: PRESENT: irregular rhythm, +S1, +S2. ABSENT: diastolic murmur, systolic murmur Vascular exam: PRESENT: normal capillary refill. ABSENT: pallor GI/Abdominal exam: PRESENT: normal bowel sounds, soft. ABSENT: distended, guar ding, mass, organolmegaly, rebound, tenderness Rectal exam: PRESENT: deferred Extremities exam: ABSENT: pedal edema Musculoskeletal exam: PRESENT: deformity - related to multiple joints involvement with arthritis. ABSENT: tenderness Neurological exam: PRESENT: alert, awake, oriented to person, oriented to place, oriented to time, oriented to situation, CN II-XII grossly intact. ABSENT: motor sensory deficit Psychiatric exam: PRESENT: appropriate affect, normal mood. ABSENT: homicidal ideation, suicidal ideation Skin exam: PRESENT: dry, intact, warm. ABSENT: cyanosis, rash Results Laboratory Results: 11/20/18 12:41 11/20/18 12:41 11/20/18 11/20/18 11/20/18 12:41 12:41 13:20 WBC 10.3 RBC 3.35 L Hgb 10.0 L Hct 32.0 L MCV 96 MCH 29.9 MCHC 31.2 L RDW 16.9 H Plt Count 280 Seg Neutrophils % 77.7 Lymphocytes % 13.0 Monocytes % 9.0 Eosinophils % 0.1 Basophils % 0.2 Absolute Neutrophils 8.0 Absolute Lymphocytes 1.3 Absolute Monocytes 0.9 Absolute Eosinophils 0.0 Absolute Basophils 0.0 VBG pH VBG pCO2 VBG HCO3 VBG Base Excess Sodium 140.0 Potassium 4.1 Chloride 103 Carbon Dioxide 25 Anion Gap 12 BUN 32 H Creatinine 1.86 H Est GFR ( Amer) 32 L Est GFR (Non-Af Amer) 27 L Glucose 122 H Lactic Acid 1.0 Calcium 9.1 Total Bilirubin 0.5 AST 30 ALT 20 Alkaline Phosphatase 94 Total Protein 7.0 Albumin 3.7 Urine Color Urine Appearance Urine pH Ur Specific [place] Urine Protein Urine Glucose (UA) Urine Ketones Urine Blood Urine Nitrite Ur Leukocyte Esterase Urine WBC (Auto) Urine RBC (Auto) 11/20/18 11/20/18 13:20 15:20 WBC RBC Hgb Hct MCV MCH MCHC RDW Plt Count Seg Neutrophils % Lymphocytes % Monocytes % Eosinophils % Basophils % Absolute Neutrophils Absolute Lymphocytes Absolute Monocytes Absolute Eosinophils Absolute Basophils VBG pH 7.27 L VBG pCO2 59.2 VBG HCO3 26.3 VBG Base Excess -1.6 Sodium Potassium Chloride Carbon Dioxide Anion Gap BUN Creatinine Est GFR ( Amer) Est GFR (Non-Af Amer) Glucose Lactic Acid Calcium Total Bilirubin AST ALT Alkaline Phosphatase Total Protein Albumin Urine Color YELLOW Urine Appearance SLIGHTLY-CLOUDY Urine pH 5.0 Ur Specific [place] 1.018 Urine Protein NEGATIVE Urine Glucose (UA) NEGATIVE Urine Ketones NEGATIVE Urine Blood NEGATIVE Urine Nitrite NEGATIVE Ur Leukocyte Esterase NEGATIVE Urine WBC (Auto) 1 Urine RBC (Auto) 1 Impressions: Chest X-Ray 11/20/18 14:11 IMPRESSION: Patchy bibasilar airspace disease, either bibasilar pneumonia or atypical appearing pulmonary edema. Assessment & Plan - Diagnosis (1) Community acquired pneumonia Qualifiers: Laterality: unspecified laterality Qualified Code(s): J18.9 - Pneumonia, unspecified organism Is this a current diagnosis for this admission?: Yes Plan: Start on IV antibiotic coverage. Maintain on supplemental oxygen. Encouraged sputum production for gram stain and culture. (2) COPD (chronic obstructive pulmonary disease) Qualifiers: COPD type: unspecified COPD Qualified Code(s): J44.9 - Chronic obstructive pulmonary disease, unspecified Is this a current diagnosis for this admission?: Yes Plan: Maintain on bronchodilators management. (3) KIAN (acute kidney injury) Is this a current diagnosis for this admission?: Yes Plan: Maintain on gentle rehydration due to her cardiac morbidities. (4) Chronic diastolic CHF (congestive heart failure) Is this a current diagnosis for this admission?: Yes Plan: Maintain on preadmission medication management. (5) Chronic atrial fibrillation Is this a current diagnosis for this admission?: Yes Plan: Maintain on preadmission medication management. (6) Chronic pain syndrome Plan: Maintain on preadmission medication management. adjust her Gabapentin and Percocet administration in view of family reported [id number] stay. (7) HLD (hyperlipidemia) Qualifiers: Hyperlipidemia type: unspecified Qualified Code(s): E78.5 - Hyperlipidemia, unspecified Is this a current diagnosis for this admission?: Yes Plan: Maintain on preadmission medication management. (8) HTN (hypertension) Qualifiers: Hypertension type: essential hypertension Qualified Code(s): I10 - Essential (primary) hypertension Is this a current diagnosis for this admission?: Yes Plan: Maintain on preadmission medication management. (9) Mixed anxiety and depressive disorder Is this a current diagnosis for this admission?: Yes Plan: Maintain on preadmission medication management. - Time Time Spent: 50 to 70 Minutes Medications reviewed and adjusted accordingly: Yes Anticipated discharge: Home with Homehealth Within: Other - Inpatient Certification Based on my medical assessment, after consideration of the patient's comorbidities, presenting symptoms, or acuity I expect that the services needed warrant INPATIENT care.: Yes I certify that my determination is in accordance with my understanding of Medicare's requirements for reasonable and necessary INPATIENT services [42 CFR 412.3e].: Yes Medical Necessity: Need Close Monitoring Due to Risk of Patient Decompensation, Need For IV Fluids, Need For Continuous Telemetry Monitoring, Need for Nebulizer Therapy and Monitoring of Response, Need for Pain Control, Need for IV Antibiotics, Risk of Complication if Not Cared For in Hospital, Risk of Diagnosis Which Will Require Inpatient Eval/Care/Monitoring Post Hospital Care: D/C Personnel Manager Documentation - Plan Summary Plan Summary: See admitting attending physician orders as per outlined care plan. I had extensive discussion with patient at bedside regarding care plan and she is in agreement.
--- NOTE | 2018-11-21 19:24 | PDOC PROGRESS REPORT ---
Subjective Progress Note for:: 11/21/18 Subjective:: Patient reported persistent coughing with expectoration difficulty. No chest pain. No fever but chills persist, reported as always feeling cold. No nausea, vomiting or abdominal pain. Reason For Visit: COMMUNITY ACQUIRED PNEUMONIA, COPD Physical Exam Vital Signs: Temp Pulse Resp BP Pulse Ox 98.0 F 83 22 H 128/40 H 100 11/21/18 03:23 11/21/18 07:00 11/21/18 03:23 11/21/18 03:23 11/21/18 03:23 Intake & Output 11/20/18 11/21/18 11/22/18 06:59 06:59 06:59 Intake Total 50 Balance 50 Weight 40.6 kg General appearance: PRESENT: mild distress - remain on supplemental oxygen. Family reported use of CPAP at home but patient have been noncompliant with usage., thin Head exam: PRESENT: atraumatic, normocephalic Eye exam: PRESENT: conjunctiva pink, EOMI, PERRLA. ABSENT: scleral icterus Ear exam: PRESENT: normal external ear exam Mouth exam: PRESENT: moist Respiratory exam: PRESENT: crackles, decreased breath sounds, prolonged expiratory phas, rhonchi Cardiovascular exam: PRESENT: irregular rhythm, +S1, +S2. ABSENT: diastolic murmur, systolic murmur Vascular exam: PRESENT: normal capillary refill. ABSENT: pallor GI/Abdominal exam: PRESENT: normal bowel sounds, soft. ABSENT: distended, guarding, mass, organolmegaly, rebound, tenderness Extremities exam: ABSENT: pedal edema Neurological exam: PRESENT: alert, awake, oriented to person, oriented to place, oriented to time, oriented to situation, CN II-XII grossly intact. ABSENT: motor sensory deficit Psychiatric exam: PRESENT: appropriate affect, normal mood. ABSENT: homicidal ideation, suicidal ideation Skin exam: PRESENT: dry, warm Results Laboratory Results: 11/21/18 04:22 11/21/18 04:22 11/20/18 11/20/18 11/20/18 12:41 12:41 13:20 WBC 10.3 RBC 3.35 L Hgb 10.0 L Hct 32.0 L MCV 96 MCH 29.9 MCHC 31.2 L RDW 16.9 H Plt Count 280 Seg Neutrophils % 77.7 Lymphocytes % 13.0 Monocytes % 9.0 Eosinophils % 0.1 Basophils % 0.2 Absolute Neutrophils 8.0 Absolute Lymphocytes 1.3 Absolute Monocytes 0.9 Absolute Eosinophils 0.0 Absolute Basophils 0.0 VBG pH VBG pCO2 VBG HCO3 VBG Base Excess Sodium 140.0 Potassium 4.1 Chloride 103 Carbon Dioxide 25 Anion Gap 12 BUN 32 H Creatinine 1.86 H Est GFR ( Amer) 32 L Est GFR (Non-Af Amer) 27 L Glucose 122 H Lactic Acid 1.0 Calcium 9.1 Magnesium Total Bilirubin 0.5 AST 30 ALT 20 Alkaline Phosphatase 94 Total Protein 7.0 Albumin 3.7 Urine Color Urine Appearance Urine pH Ur Specific [facility] Urine Protein Urine Glucose (UA) Urine Ketones Urine Blood Urine Nitrite Ur Leukocyte Esterase Urine WBC (Auto) Urine RBC (Auto) 11/20/18 11/20/18 11/21/18 13:20 15:20 04:22 WBC 9.7 RBC 3.29 L Hgb 9.6 L Hct 30.6 L MCV 93 MCH 29.3 MCHC 31.5 L RDW 16.3 H Plt Count 233 Seg Neutrophils % 83.4 H Lymphocytes % 8.7 L Monocytes % 7.6 Eosinophils % 0.2 Basophils % 0.1 Absolute Neutrophils 8.1 Absolute Lymphocytes 0.8 Absolute Monocytes 0.7 Absolute Eosinophils 0.0 Absolute Basophils 0.0 VBG pH 7.27 L VBG pCO2 59.2 VBG HCO3 26.3 VBG Base Excess -1.6 Sodium Potassium Chloride Carbon Dioxide Anion Gap BUN Creatinine Est GFR ( Amer) Est GFR (Non-Af Amer) Glucose Lactic Acid Calcium Magnesium Total Bilirubin AST ALT Alkaline Phosphatase Total Protein Albumin Urine Color YELLOW Urine Appearance SLIGHTLY-CLOUDY Urine pH 5.0 Ur Specific [facility] 1.018 Urine Protein NEGATIVE Urine Glucose (UA) NEGATIVE Urine Ketones NEGATIVE Urine Blood NEGATIVE Urine Nitrite NEGATIVE Ur Leukocyte Esterase NEGATIVE Urine WBC (Auto) 1 Urine RBC (Auto) 1 11/21/18 04:22 WBC RBC Hgb Hct MCV MCH MCHC RDW Plt Count Seg Neutrophils % Lymphocytes % Monocytes % Eosinophils % Basophils % Absolute Neutrophils Absolute Lymphocytes Absolute Monocytes Absolute Eosinophils Absolute Basophils VBG pH VBG pCO2 VBG HCO3 VBG Base Excess Sodium 142.2 Potassium 3.7 Chloride 109 H Carbon Dioxide 25 Anion Gap 8 BUN 22 H Creatinine 1.04 Est GFR ( Amer) > 60 Est GFR (Non-Af Amer) 52 L Glucose 100 Lactic Acid Calcium 8.5 Magnesium 1.8 Total Bilirubin AST ALT Alkaline Phosphatase Total Protein Albumin Urine Color Urine Appearance Urine pH Ur Specific [facility] Urine Protein Urine Glucose (UA) Urine Ketones Urine Blood Urine Nitrite Ur Leukocyte Esterase Urine WBC (Auto) Urine RBC (Auto) Impressions: Chest X-Ray 11/20/18 14:11 IMPRESSION: Patchy bibasilar airspace disease, either bibasilar pneumonia or atypical appearing pulmonary edema. Assessment & Plan - Diagnosis (1) Community acquired pneumonia Qualifiers: Laterality: unspecified laterality Qualified Code(s): J18.9 - Pneumonia, unspecified organism Is this a current diagnosis for this admission?: Yes Plan: Continue IV antibiotic coverage. Maintain on supplemental oxygen. Encouraged use of bedside flutter device. (2) KIAN (acute kidney injury) Is this a current diagnosis for this admission?: Yes Plan: Maintain on gentle IV fluid rehydration. (3) Acute and chronic respiratory failure with hypoxia Is this a current diagnosis for this admission?: Yes Plan: Maintain on BiPAP support while sleeping. (4) COPD with exacerbation Is this a current diagnosis for this admission?: Yes Plan: Continue bronchodilators therapy (5) Chronic diastolic CHF (congestive heart failure) Is this a current diagnosis for this admission?: Yes Plan: Maintain on medication management. (6) Chronic pain syndrome Is this a current diagnosis for this admission?: Yes Plan: Reduce Gabapentin and Percocet usage due to reported lethargy and confusion. (7) Chronic prescription opiate use Is this a current diagnosis for this admission?: Yes Plan: Reduce Gabapentin and Percocet usage due to reported lethargy and confusion. (8) HLD (hyperlipidemia) Qualifiers: Hyperlipidemia type: unspecified Qualified Code(s): E78.5 - Hyperlipidemia, unspecified Is this a current diagnosis for this admission?: Yes Plan: Maintain on medication management. (9) HTN (hypertension) Qualifiers: Hypertension type: essential hypertension Qualified Code(s): I10 - Essential (primary) hypertension Is this a current diagnosis for this admission?: Yes Plan: Maintain on medication management. (10) Mixed anxiety and depressive disorder Is this a current diagnosis for this admission?: Yes Plan: Maintain on medication management. - Time Time Spent with patient: 25-34 minutes Medications reviewed and adjusted accordingly: Yes Anticipated discharge: Home with Homehealth Within: Other - Inpatient Certification Based on my medical assessment, after consideration of the patient's comorbidities, presenting symptoms, or acuity I expect that the services needed warrant INPATIENT care.: Yes I certify that my determination is in accordance with my understanding of Medicare's requirements for reasonable and necessary INPATIENT services [42 CFR 412.3e].: Yes Medical Necessity: Significant Comorbidiites Make Outpatient Treatment Too Risky, Need Close Monitoring Due to Risk of Patient Decompensation, Need For IV Fluids, Need For Continuous Telemetry Monitoring, Need for Nebulizer Therapy and Monitoring of Response, Need for Pain Control, Need for IV Antibiotics, Risk of Complication if Not Cared For in Hospital, Risk of Diagnosis Which Will Require Inpatient Eval/Care/Monitoring 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 Decrease Gabapentin to 100 mg po tid. Maintain on all other current medication management.
[2018-11-21] MEDS: LATANOPROST 0.005% OPH SOLN 2.5 ML OU SCH (21:10)
[2018-11-21] MEDS: MELATONIN 3 MG TABLET PO SCH (21:10)
[2018-11-21] MEDS: ATORVASTATIN CALCIUM 40 MG TABLET PO SCH (21:10)
[2018-11-21] MEDS: GABAPENTIN 100 MG CAPSULE PO SCH (21:10)
[2018-11-21] MEDS ORDERED: (PENDING PHARMACY ID) (Latanoprost/Pf [Latanoprost 0.005% Eye Drop] 1 DROP) OU SCH (22:00)
[2018-11-22] MEDS: NORMAL SALINE 1000 ML 1,000 ML IV PRN ×2 (03:08→17:06)
[2018-11-22] MEDS: LANSOPRAZOLE 30 MG TAB.RAP.DR PO SCH (05:01)
[2018-11-22] MEDS: GABAPENTIN 100 MG CAPSULE PO SCH ×3 (05:01→21:13)
[2018-11-22] MEDS: IPRATROPIUM/ALBUTEROL 0.5-2.5 MG/3 ML AMPUL NEB SCH ×4 (07:42→19:43)
[2018-11-22] MEDS: WARFARIN SODIUM 3 MG TABLET PO SCH (11:06)
[2018-11-22] MEDS: TIOTROPIUM BROMIDE DPI 5 CAP/KIT (18 MCG/CAP) IH SCH (11:06)
[2018-11-22] MEDS: VALSARTAN 40 MG TABLET PO SCH (11:07)
[2018-11-22] MEDS: CALCIUM CARBONATE 250 MG/VITAMIN D3 125 UNIT TABLET PO SCH (11:07)
[2018-11-22] MEDS: DOCUSATE SODIUM 100 MG CAPSULE PO SCH (11:07)
[2018-11-22] MEDS: CITALOPRAM HYDROBROMIDE 20 MG TABLET PO SCH (11:07)
[2018-11-22] MEDS: DILTIAZEM HCL 120 MG CAP.SR.24H PO SCH (11:07)
[2018-11-22] MEDS: ACETAZOLAMIDE 500 MG CAPSULE.SA PO SCH (11:07)
[2018-11-22] MEDS: CEFTRIAXONE 1 GM/D5W RTU 1 GM/50 ML RTUPB IV SCH (11:08)
[2018-11-22] MEDS: MULTIVITAMIN TABLET PO SCH (11:08)
[2018-11-22] MEDS: METOPROLOL SUCCINATE 25 MG TAB.SR.24H PO SCH (11:09)
[2018-11-22] MEDS: BUDESONIDE/FORMOTEROL 160-4.5 MCG 60 PUFF/6 GM MDI IH SCH ×2 (11:10→17:07)
[2018-11-22] MEDS: AZITHROMYCIN 500 MG in DEXTROSE 5%-WATER 250 ML IV SCH (17:07)
--- NOTE | 2018-11-22 17:08 | PDOC PROGRESS REPORT ---
Subjective Progress Note for:: 11/22/18 Subjective:: Patient reported compliance with BiPAP usage. No chest pain. There is coughing with continued expectoration difficulty No reported fever and she denied chills. No nausea, vomiting or abdominal pain. Reason For Visit: COMMUNITY ACQUIRED PNEUMONIA, COPD Physical Exam Vital Signs: Temp Pulse Resp BP Pulse Ox 97.7 F 72 23 H 132/47 H 94 11/22/18 03:02 11/22/18 07:42 11/22/18 07:42 11/22/18 03:02 11/22/18 07:42 Intake & Output 11/21/18 11/22/18 11/23/18 06:59 06:59 06:59 Intake Total 50 3199 Balance 50 3199 Weight 40.6 kg 44 kg Physical Exam: General appearance: PRESENT: mild distress - remain on supplemental oxygen and BiPAP support, thin Head exam: PRESENT: atraumatic, normocephalic Eye exam: PRESENT: conjunctiva pink, EOMI, PERRLA. ABSENT: pallor, scleral icterus Ear exam: PRESENT: normal external ear exam Mouth exam: PRESENT: moist Respiratory exam: PRESENT: crackles, decreased breath sounds, prolonged expiratory phase, rhonchi Cardiovascular exam: PRESENT: irregular rhythm, +S1, +S2. ABSENT: diastolic murmur, systolic murmur GI/Abdominal exam: PRESENT: normal bowel sounds, soft. ABSENT: distended, guarding, mass, organomegaly, rebound, tenderness Extremities exam: ABSENT: pedal edema Neurological exam: PRESENT: alert, awake, oriented to person, oriented to place, oriented to time, oriented to situation, CN II-XII grossly intact. ABSENT: motor sensory deficit Psychiatric exam: PRESENT: appropriate affect, normal mood. ABSENT: homicidal ideation, suicidal ideation Skin exam: PRESENT: dry, warm Results Laboratory Results: 11/21/18 04:22 11/21/18 04:22 Impressions: Chest X-Ray 11/20/18 14:11 IMPRESSION: Patchy bibasilar airspace disease, either bibasilar pneumonia or atypical appearing pulmonary edema. Assessment & Plan - Diagnosis (1) Community acquired pneumonia Qualifiers: Laterality: unspecified laterality Qualified Code(s): J18.9 - Pneumonia, unspecified organism Is this a current diagnosis for this admission?: Yes (2) KIAN (acute kidney injury) Is this a current diagnosis for this admission?: Yes (3) Acute and chronic respiratory failure with hypoxia Is this a current diagnosis for this admission?: Yes (4) COPD with exacerbation Is this a current diagnosis for this admission?: Yes (5) Chronic diastolic CHF (congestive heart failure) Is this a current diagnosis for this admission?: Yes (6) Chronic pain syndrome Is this a current diagnosis for this admission?: Yes (7) Chronic prescription opiate use Is this a current diagnosis for this admission?: Yes (8) HLD (hyperlipidemia) Qualifiers: Hyperlipidemia type: unspecified Qualified Code(s): E78.5 - Hyperlipidemia, unspecified Is this a current diagnosis for this admission?: Yes (9) HTN (hypertension) Qualifiers: Hypertension type: essential hypertension Qualified Code(s): I10 - Essential (primary) hypertension Is this a current diagnosis for this admission?: Yes (10) Mixed anxiety and depressive disorder Is this a current diagnosis for this admission?: Yes - Time Time Spent with patient: 25-34 minutes Medications reviewed and adjusted accordingly: Yes Anticipated discharge: Home with Homehealth Within: Other - Inpatient Certification Based on my medical assessment, after consideration of the patient's comorbidities, presenting symptoms, or acuity I expect that the services needed warrant INPATIENT care.: Yes I certify that my determination is in accordance with my understanding of Medicare's requirements for reasonable and necessary INPATIENT services [42 CFR 412.3e].: Yes - Plan Summary Plan Summary: Continue current antibiotic coverage. Follow up on request for sputum gram stain and culture. Maintain on all other current medication management.
[2018-11-22] MEDS: ATORVASTATIN CALCIUM 40 MG TABLET PO SCH (21:15)
[2018-11-22] MEDS: MELATONIN 3 MG TABLET PO SCH (21:16)
[2018-11-22] MEDS: LATANOPROST 0.005% OPH SOLN 2.5 ML OU SCH (21:16)
[2018-11-22] MEDS: ACETAMINOPHEN 325 MG TABLET PO PRN (21:16)
[2018-11-23] MEDS: NORMAL SALINE 1000 ML 1,000 ML IV PRN ×2 (05:21→23:06)
[2018-11-23] MEDS: GABAPENTIN 100 MG CAPSULE PO SCH ×3 (05:22→21:24)
[2018-11-23] MEDS: LANSOPRAZOLE 30 MG TAB.RAP.DR PO SCH (05:24)
[2018-11-23] MEDS: IPRATROPIUM/ALBUTEROL 0.5-2.5 MG/3 ML AMPUL NEB SCH ×4 (07:49→20:16)
[2018-11-23] MEDS: CEFTRIAXONE 1 GM/D5W RTU 1 GM/50 ML RTUPB IV SCH (09:09)
[2018-11-23] MEDS: TIOTROPIUM BROMIDE DPI 5 CAP/KIT (18 MCG/CAP) IH SCH (09:12)
[2018-11-23] MEDS: BUDESONIDE/FORMOTEROL 160-4.5 MCG 60 PUFF/6 GM MDI IH SCH ×2 (09:14→17:15)
[2018-11-23] MEDS: WARFARIN SODIUM 3 MG TABLET PO SCH (09:14)
[2018-11-23] MEDS: DOCUSATE SODIUM 100 MG CAPSULE PO SCH (09:15)
[2018-11-23] MEDS: DILTIAZEM HCL 120 MG CAP.SR.24H PO SCH (09:15)
[2018-11-23] MEDS: VALSARTAN 40 MG TABLET PO SCH (09:15)
[2018-11-23] MEDS: ACETAZOLAMIDE 500 MG CAPSULE.SA PO SCH (09:15)
[2018-11-23] MEDS: MULTIVITAMIN TABLET PO SCH (09:15)
[2018-11-23] MEDS: CITALOPRAM HYDROBROMIDE 20 MG TABLET PO SCH (09:16)
[2018-11-23] MEDS: CALCIUM CARBONATE 250 MG/VITAMIN D3 125 UNIT TABLET PO SCH (09:16)
[2018-11-23] MEDS: METOPROLOL SUCCINATE 25 MG TAB.SR.24H PO SCH (09:17)
--- NOTE | 2018-11-23 16:07 | PDOC PROGRESS REPORT ---
Subjective Progress Note for:: 11/23/18 Subjective:: Patient reported compliance with BiPAP usage. No chest pain or difficulty with breath. No reported fever or chills. No nausea, vomiting or abdominal pain. Reason For Visit: COMMUNITY ACQUIRED PNEUMONIA, COPD Physical Exam Vital Signs: Temp Pulse Resp BP Pulse Ox 98.6 F 64 16 137/60 H 94 11/23/18 15:23 11/23/18 15:46 11/23/18 15:46 11/23/18 15:23 11/23/18 15:46 Intake & Output 11/22/18 11/23/18 11/24/18 06:59 06:59 06:59 Intake Total 3199 2656 100 Balance 3199 2656 100 Weight 44 kg 45.9 kg Physical Exam: General appearance: PRESENT: mild distress - remain on supplemental oxygen and BiPAP support, thin Head exam: PRESENT: atraumatic, normocephalic Eye exam: PRESENT: conjunctiva pink, EOMI, PERRLA. ABSENT: pallor, scleral icterus Respiratory exam: PRESENT: crackles, decreased breath sounds, prolonged expiratory phase, rhonchi Cardiovascular exam: PRESENT: irregular rhythm, +S1, +S2. ABSENT: diastolic murmur, systolic murmur GI/Abdominal exam: PRESENT: normal bowel sounds, soft. ABSENT: distended, guarding, mass, organomegaly, rebound, tenderness Extremities exam: ABSENT: pedal edema Neurological exam: PRESENT: alert, awake, oriented to person, oriented to place, oriented to time, oriented to situation, CN II-XII grossly intact. ABSENT: motor sensory deficit Psychiatric exam: PRESENT: appropriate affect, normal mood. ABSENT: homicidal ideation, suicidal ideation Skin exam: PRESENT: dry, warm Results Laboratory Results: 11/21/18 04:22 11/21/18 04:22 11/20/18 15:20 Catheterized Urine Urine Culture - Final NO GROWTH 2 DAYS Impressions: Chest X-Ray 11/20/18 14:11 IMPRESSION: Patchy bibasilar airspace disease, either bibasilar pneumonia or atypical appearing pulmonary edema. Assessment & Plan - Diagnosis (1) Community acquired pneumonia Qualifiers: Laterality: unspecified laterality Qualified Code(s): J18.9 - Pneumonia, unspecified organism Is this a current diagnosis for this admission?: Yes (2) KIAN (acute kidney injury) Is this a current diagnosis for this admission?: Yes (3) Acute and chronic respiratory failure with hypoxia Is this a current diagnosis for this admission?: Yes (4) COPD with exacerbation Is this a current diagnosis for this admission?: Yes (5) Chronic diastolic CHF (congestive heart failure) Is this a current diagnosis for this admission?: Yes (6) Chronic pain syndrome Is this a current diagnosis for this admission?: Yes (7) Chronic prescription opiate use Is this a current diagnosis for this admission?: Yes (8) HLD (hyperlipidemia) Qualifiers: Hyperlipidemia type: unspecified Qualified Code(s): E78.5 - Hyperlipidemia, unspecified Is this a current diagnosis for this admission?: Yes (9) HTN (hypertension) Qualifiers: Hypertension type: essential hypertension Qualified Code(s): I10 - Essential (primary) hypertension Is this a current diagnosis for this admission?: Yes (10) Mixed anxiety and depressive disorder Is this a current diagnosis for this admission?: Yes - Time Time Spent with patient: 25-34 minutes Medications reviewed and adjusted accordingly: Yes Anticipated discharge: Home with Homehealth Within: Other - Inpatient Certification Based on my medical assessment, after consideration of the patient's comorbidities, presenting symptoms, or acuity I expect that the services needed warrant INPATIENT care.: Yes I certify that my determination is in accordance with my understanding of Medicare's requirements for reasonable and necessary INPATIENT services [42 CFR 412.3e].: Yes Medical Necessity: Significant Comorbidiites Make Outpatient Treatment Too Risky, Need Close Monitoring Due to Risk of Patient Decompensation, Need For IV Fluids, Need For Continuous Telemetry Monitoring, Need for Nebulizer Therapy and Monitoring of Response, Need for IV Antibiotics, Risk of Complication if Not Cared For in Hospital, Risk of Diagnosis Which Will Require Inpatient Eval/Care/Monitoring 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 Follow up on culture findings.
[2018-11-23] MEDS: AZITHROMYCIN 500 MG in DEXTROSE 5%-WATER 250 ML IV SCH (17:14)
[2018-11-23] MEDS: MELATONIN 3 MG TABLET PO SCH (21:24)
[2018-11-23] MEDS: ATORVASTATIN CALCIUM 40 MG TABLET PO SCH (21:24)
[2018-11-23] MEDS: ACETAMINOPHEN 325 MG TABLET PO PRN (21:25)
[2018-11-23] MEDS: LATANOPROST 0.005% OPH SOLN 2.5 ML OU SCH (21:25)
[2018-11-24] MEDS: GABAPENTIN 100 MG CAPSULE PO SCH ×3 (05:25→21:10)
[2018-11-24] MEDS: LANSOPRAZOLE 30 MG TAB.RAP.DR PO SCH (05:26)
[2018-11-24] MEDS: IPRATROPIUM/ALBUTEROL 0.5-2.5 MG/3 ML AMPUL NEB SCH ×4 (08:13→19:32)
--- NOTE | 2018-11-24 09:37 | PDOC PROGRESS REPORT ---
Subjective Progress Note for:: 11/24/18 Subjective:: THere was concern regarding desaturation during the night off BiPAP usage.She reported compliance with Flutter usage when she is off BiPAP support. No reported fever or chills. Sputum culture is growing gram positive cocci in cluster but methicillin sensitivity is not available. She remain on IV Azithromycin and Ceftriaxone coverage. No nausea, vomiting, or abdominal pain. Reason For Visit: COMMUNITY ACQUIRED PNEUMONIA, COPD Physical Exam Vital Signs: Temp Pulse Resp BP Pulse Ox 98.0 F 95 22 H 163/83 H 97 11/24/18 07:14 11/24/18 08:43 11/24/18 08:43 11/24/18 07:14 11/24/18 08:43 Intake & Output 11/23/18 11/24/18 11/25/18 06:59 06:59 06:59 Intake Total 2656 1942 Balance 2656 1942 Weight 45.9 kg 46.6 kg Physical Exam: General appearance: PRESENT: mild distress - remain on supplemental oxygen and BiPAP support, thin Head exam: PRESENT: atraumatic, normocephalic Eye exam: PRESENT: conjunctiva pink, EOMI, PERRLA. ABSENT: pallor, scleral icterus Respiratory exam: PRESENT: decreased breath sounds, prolonged expiratory phase, rhonchi Cardiovascular exam: PRESENT: irregular rhythm, +S1, +S2. ABSENT: diastolic murmur, systolic murmur GI/Abdominal exam: PRESENT: normal bowel sounds, soft. ABSENT: distended, guarding, mass, organomegaly, rebound, tenderness Extremities exam: ABSENT: pedal edema Neurological exam: PRESENT: alert, awake, oriented to person, oriented to place, oriented to time, oriented to situation, CN II-XII grossly intact. ABSENT: motor sensory deficit Psychiatric exam: PRESENT: appropriate affect, normal mood. ABSENT: homicidal ideation, suicidal ideation Skin exam: PRESENT: dry, warm Results Laboratory Results: 11/21/18 04:22 11/21/18 04:22 Impressions: Chest X-Ray 11/20/18 14:11 IMPRESSION: Patchy bibasilar airspace disease, either bibasilar pneumonia or atypical appearing pulmonary edema. Assessment & Plan - Diagnosis (1) Community acquired pneumonia Qualifiers: Laterality: unspecified laterality Qualified Code(s): J18.9 - Pneumonia, unspecified organism Is this a current diagnosis for this admission?: Yes (2) KIAN (acute kidney injury) Is this a current diagnosis for this admission?: Yes (3) Acute and chronic respiratory failure with hypoxia Is this a current diagnosis for this admission?: Yes (4) COPD with exacerbation Is this a current diagnosis for this admission?: Yes (5) Chronic diastolic CHF (congestive heart failure) Is this a current diagnosis for this admission?: Yes (6) Chronic pain syndrome Is this a current diagnosis for this admission?: Yes (7) Chronic prescription opiate use Is this a current diagnosis for this admission?: Yes (8) HLD (hyperlipidemia) Qualifiers: Hyperlipidemia type: unspecified Qualified Code(s): E78.5 - Hyperlipidemia, unspecified Is this a current diagnosis for this admission?: Yes (9) HTN (hypertension) Qualifiers: Hypertension type: essential hypertension Qualified Code(s): I10 - Essential (primary) hypertension Is this a current diagnosis for this admission?: Yes (10) Mixed anxiety and depressive disorder Is this a current diagnosis for this admission?: Yes - Time Time Spent with patient: 25-34 minutes Medications reviewed and adjusted accordingly: Yes Anticipated discharge: Home with Homehealth Within: Other - Inpatient Certification Based on my medical assessment, after consideration of the patient's comorbidities, presenting symptoms, or acuity I expect that the services needed warrant INPATIENT care.: Yes I certify that my determination is in accordance with my understanding of Medicare's requirements for reasonable and necessary INPATIENT services [42 CFR 412.3e].: Yes Medical Necessity: Significant Comorbidiites Make Outpatient Treatment Too Risky, Need Close Monitoring Due to Risk of Patient Decompensation, Need For IV Fluids, Need For Continuous Telemetry Monitoring, Need for Nebulizer Therapy and Monitoring of Response, Need for IV Antibiotics, Risk of Complication if Not Cared For in Hospital, Risk of Diagnosis Which Will Require Inpatient Eval/Care/Monitoring Post Hospital Care: D/C 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
[2018-11-24] MEDS: CEFTRIAXONE 1 GM/D5W RTU 1 GM/50 ML RTUPB IV SCH (10:37)
[2018-11-24] MEDS: DOCUSATE SODIUM 100 MG CAPSULE PO SCH (10:39)
[2018-11-24] MEDS: MULTIVITAMIN TABLET PO SCH (10:39)
[2018-11-24] MEDS: WARFARIN SODIUM 3 MG TABLET PO SCH (10:39)
[2018-11-24] MEDS: VALSARTAN 40 MG TABLET PO SCH (10:39)
[2018-11-24] MEDS: CITALOPRAM HYDROBROMIDE 20 MG TABLET PO SCH (10:39)
[2018-11-24] MEDS: CALCIUM CARBONATE 250 MG/VITAMIN D3 125 UNIT TABLET PO SCH (10:39)
[2018-11-24] MEDS: ACETAZOLAMIDE 500 MG CAPSULE.SA PO SCH (10:40)
[2018-11-24] MEDS: BUDESONIDE/FORMOTEROL 160-4.5 MCG 60 PUFF/6 GM MDI IH SCH ×2 (10:40→18:30)
[2018-11-24] MEDS: TIOTROPIUM BROMIDE DPI 5 CAP/KIT (18 MCG/CAP) IH SCH (10:40)
[2018-11-24] MEDS: DILTIAZEM HCL 120 MG CAP.SR.24H PO SCH (10:41)
[2018-11-24] MEDS: METOPROLOL SUCCINATE 25 MG TAB.SR.24H PO SCH (10:41)
[2018-11-24] MEDS: NORMAL SALINE 1000 ML 1,000 ML IV PRN (10:45)
--- NOTE | 2018-11-24 14:53 | RADIOLOGY REPORT (SQ) ---
EXAM DESCRIPTION: CHEST SINGLE VIEW COMPLETED DATE/TIME: 11/24/2018 2:03 pm REASON FOR STUDY: worsening shortness of breath COMPARISON: CT angio chest 07/01/2018 Chest films 11/20/2018, 06/30/2018 EXAM PARAMETERS: NUMBER OF VIEWS: One view. TECHNIQUE: Single frontal radiographic view of the chest acquired. RADIATION DOSE: NA LIMITATIONS: None. FINDINGS: LUNGS AND PLEURA: Fluid overload or congestive failure pattern bilateral pleural effusions and alveolar and interstitial pulmonary edema. Upper lobes are hyperlucent from obstructive disease . No pneumothorax. MEDIASTINUM AND HILAR STRUCTURES: No masses. Contour normal. HEART AND VASCULAR STRUCTURES: Stable moderate cardiomegaly BONES: No acute findings. HARDWARE: Surgical clips right breast OTHER: No other significant finding. IMPRESSION: Fluid overload or congestive failure with small right and small moderate left pleural ef fusions, alveolar and interstitial pulmonary edema. Findings are more prominent than on 11/20/2018 TECHNICAL DOCUMENTATION: JOB ID: [id number] [employer]- All Rights Reserved Reading location - IP/workstation name: [email or web address]
[2018-11-24] MEDS ORDERED: FUROSEMIDE INJ/PF 20 MG/2 ML SDV IV ONE (15:30)
[2018-11-24] MEDS: AZITHROMYCIN 500 MG in DEXTROSE 5%-WATER 250 ML IV SCH (18:30)
[2018-11-24] MEDS: ATORVASTATIN CALCIUM 40 MG TABLET PO SCH (21:10)
[2018-11-24] MEDS: MELATONIN 3 MG TABLET PO SCH (21:10)
[2018-11-24] MEDS: LATANOPROST 0.005% OPH SOLN 2.5 ML OU SCH (21:10)
[2018-11-25 04:56] LABS: ABSOLUTE EOSINOPHILS # (AUTO) 0.1 10^3/uL (0.0-0.6); ABSOLUTE LYMPHOCYTES (AUTO) 0.8 10^3/uL (0.5-4.7); ABSOLUTE MONOCYTES (AUTO) 0.9 10^3/uL (0.1-1.4); ABSOLUTE NEUT (AUTO) 7.3 10^3/uL (1.7-8.2); BASOPHILS % (AUTO) 0.2 % (0-2); HEMATOCRIT 27.1 % (36.0-47.0); HEMOGLOBIN 8.5 g/dL (12.0-15.5); LYMPHOCYTES % (AUTO) 8.6 % (13-45); MEAN CORPUSCULAR HEMOGLOBIN 29.2 pg (27.0-33.4); MEAN CORPUSCULAR HGB CONC 31.4 g/dL (32.0-36.0); MEAN CORPUSCULAR VOLUME 93 fl (80-97); MONOCYTES % (AUTO) 9.4 % (3-13); PLATELET COUNT 242 10^3/uL (150-450); RED BLOOD COUNT 2.91 10^6/uL (3.72-5.28); RED CELL DISTRIBUTION WIDTH 16.1 % (11.5-14.0); SEGMENTED NEUTROPHILS % (AUTO) 80.8 % (42-78); TOTAL CELLS COUNTED % (AUTO) 100 %; WHITE BLOOD COUNT 9.1 10^3/uL (4.0-10.5)
[2018-11-25] MEDS: GABAPENTIN 100 MG CAPSULE PO SCH ×4 (05:08→21:45)
[2018-11-25] MEDS: LANSOPRAZOLE 30 MG TAB.RAP.DR PO SCH (05:09)
[2018-11-25 05:21] LABS: ALANINE AMINOTRANSFERASE 27 U/L (9-52); ALBUMIN 2.8 g/dL (3.5-5.0); ALKALINE PHOSPHATASE 70 U/L (38-126); ANION GAP 8 (5-19); ASPARTATE AMINO TRANSFERASE 17 U/L (14-36); BILIRUBIN,DIRECT 0.2 mg/dL (0.0-0.4); BILIRUBIN,TOTAL 0.5 mg/dL (0.2-1.3); BLOOD UREA NITROGEN 9 mg/dL (7-20); CALCIUM 8.7 mg/dL (8.4-10.2); CARBON DIOXIDE 24 mmol/L (22-30); CHLORIDE 109 mmol/L (98-107); GLUCOSE 107 mg/dL (75-110); POTASSIUM 3.4 mmol/L (3.6-5.0); TOTAL PROTEIN 5.5 g/dL (6.3-8.2)
[2018-11-25 06:51] LABS: INTERNATIONAL RATION (INR) 6.96; PROTHROMBIN TIME 63.1 SEC (11.4-15.4)
[2018-11-25] MEDS: IPRATROPIUM/ALBUTEROL 0.5-2.5 MG/3 ML AMPUL NEB SCH ×4 (08:09→20:45)
[2018-11-25] MEDS: ACETAZOLAMIDE 500 MG CAPSULE.SA PO SCH (09:18)
[2018-11-25] MEDS: CALCIUM CARBONATE 250 MG/VITAMIN D3 125 UNIT TABLET PO SCH (09:20)
[2018-11-25] MEDS: VALSARTAN 40 MG TABLET PO SCH (09:21)
[2018-11-25] MEDS: MULTIVITAMIN TABLET PO SCH (09:22)
[2018-11-25] MEDS: CITALOPRAM HYDROBROMIDE 20 MG TABLET PO SCH (09:22)
[2018-11-25] MEDS: DILTIAZEM HCL 120 MG CAP.SR.24H PO SCH (09:22)
[2018-11-25] MEDS: DOCUSATE SODIUM 100 MG CAPSULE PO SCH (09:22)
[2018-11-25] MEDS: TIOTROPIUM BROMIDE DPI 5 CAP/KIT (18 MCG/CAP) IH SCH (09:23)
[2018-11-25] MEDS: BUDESONIDE/FORMOTEROL 160-4.5 MCG 60 PUFF/6 GM MDI IH SCH ×2 (09:23→18:22)
[2018-11-25] MEDS: CEFTRIAXONE 1 GM/D5W RTU 1 GM/50 ML RTUPB IV SCH (09:24)
[2018-11-25] MEDS: METOPROLOL SUCCINATE 25 MG TAB.SR.24H PO SCH (10:12)
[2018-11-25] MEDS: ACETAMINOPHEN 325 MG TABLET PO PRN ×2 (10:28→18:29)
[2018-11-25] MEDS: GUAIFENESIN/D-METHORPHAN (200-20 MG) SYRUP 10 ML PO PRN (12:08)
[2018-11-25] MEDS ORDERED: VANCOMYCIN HCL 0 MG in DEXTROSE 5%-WATER 250 ML IV NR (13:00)
--- NOTE | 2018-11-25 13:00 | PDOC PROGRESS REPORT ---
Subjective Progress Note for:: 11/25/18 Subjective:: Breathing is getting better. Currently off BiPAP support and remain on supplemental oxygen via nasal cannula. No fever or chills. No chest pain. No nausea, vomiting, or abdominal pain. Reason For Visit: COMMUNITY ACQUIRED PNEUMONIA, COPD Physical Exam Vital Signs: Temp Pulse Resp BP Pulse Ox 98.8 F 105 H 20 161/56 H 97 11/25/18 11:22 11/25/18 12:24 11/25/18 12:24 11/25/18 11:22 11/25/18 12:24 Intake & Output 11/24/18 11/25/18 11/26/18 06:59 06:59 06:59 Intake Total 1941 2651 50 Output Total 500 Balance 1941 2151 50 Weight 46.6 kg 45.2 kg Physical Exam: General appearance: PRESENT: mild distress - remain on supplemental oxygen and BiPAP support, thin Head exam: PRESENT: atraumatic, normocephalic Eye exam: PRESENT: conjunctiva pink, EOMI, PERRLA. ABSENT: pallor, scleral icterus Respiratory exam: PRESENT: decreased breath sounds, prolonged expiratory phase, rhonchi Cardiovascular exam: PRESENT: irregular rhythm, +S1, +S2. ABSENT: diastolic murmur, systolic murmur GI/Abdominal exam: PRESENT: normal bowel sounds, soft. ABSENT: distended, guarding, mass, organomegaly, rebound, tenderness Extremities exam: ABSENT: pedal edema Neurological exam: PRESENT: alert, awake, oriented to person, oriented to place, oriented to time, oriented to situation, CN II-XII grossly intact. ABSENT: motor sensory deficit Psychiatric exam: PRESENT: appropriate affect, normal mood. ABSENT: homicidal ideation, suicidal ideation Skin exam: PRESENT: dry, warm Results Laboratory Results: 11/25/18 03:56 11/25/18 03:56 11/25/18 11/25/18 03:56 03:56 WBC 9.1 RBC 2.91 L Hgb 8.5 L Hct 27.1 L MCV 93 MCH 29.2 MCHC 31.4 L RDW 16.1 H Plt Count 242 Seg Neutrophils % 80.8 H Lymphocytes % 8.6 L Monocytes % 9.4 Eosinophils % 1.0 Basophils % 0.2 Absolute Neutrophils 7.3 Absolute Lymphocytes 0.8 Absolute Monocytes 0.9 Absolute Eosinophils 0.1 Absolute Basophils 0.0 Sodium 141.0 Potassium 3.4 L Chloride 109 H Carbon Dioxide 24 Anion Gap 8 BUN 9 Creatinine 0.65 Est GFR ( Amer) > 60 Est GFR (Non-Af Amer) > 60 Glucose 107 Calcium 8.7 Total Bilirubin 0.5 AST 17 ALT 27 Alkaline Phosphatase 70 Total Protein 5.5 L Albumin 2.8 L 11/22/18 14:00 Sputum Gram Stain - Final 11/22/18 14:00 Sputum Sputum Culture - Final Mrsa (Meth Resis Staph Aureus) C.albicans/C.dubliniensis Normal Herberth Absent Impressions: Chest X-Ray 11/24/18 00:00 IMPRESSION: Fluid overload or congestive failure with small right and small moderate left pleural effusions, alveolar and interstitial pulmonary edema. Findings are more prominent than on 11/20/2018 Assessment & Plan - Diagnosis (1) Community acquired pneumonia Qualifiers: Laterality: unspecified laterality Qualified Code(s): J18.9 - Pneumonia, unspecified organism Is this a current diagnosis for this admission?: Yes (2) KIAN (acute kidney injury) Is this a current diagnosis for this admission?: Yes (3) Acute and chronic respiratory failure with hypoxia Is this a current diagnosis for this admission?: Yes (4) COPD with exacerbation Is this a current diagnosis for this admission?: Yes (5) Chronic diastolic CHF (congestive heart failure) Is this a current diagnosis for this admission?: Yes (6) Chronic pain syndrome Is this a current diagnosis for this admission?: Yes (7) Chronic prescription opiate use Is this a current diagnosis for this admission?: Yes (8) HLD (hyperlipidemia) Qualifiers: Hyperlipidemia type: unspecified Qualified Code(s): E78.5 - Hyperlipidemia, unspecified Is this a current diagnosis for this admission?: Yes (9) HTN (hypertension) Qualifiers: Hypertension type: essential hypertension Qualified Code(s): I10 - Essential (primary) hypertension Is this a current diagnosis for this admission?: Yes (10) Mixed anxiety and depressive disorder Is this a current diagnosis for this admission?: Yes (11) MRSA (methicillin resistant Staphylococcus aureus) septicemia Is this a current diagnosis for this admission?: Yes Plan: Start on IV Vancomycin coverage. Also, start on nasal mupirocin [id number] due to concern about colonization. Her culture was devoid of normal herberth so this may be an actual infectious process. - Time Time Spent with patient: 25-34 minutes Medications reviewed and adjusted accordingly: Yes Anticipated discharge: Home with Homehealth Within: Other - Inpatient Certification Based on my medical assessment, after consideration of the patient's comorbidities, presenting symptoms, or acuity I expect that the services needed warrant INPATIENT care.: Yes I certify that my determination is in accordance with my understanding of Medicare's requirements for reasonable and necessary INPATIENT services [42 CFR 412.3e].: Yes Medical Necessity: Significant Comorbidiites Make Outpatient Treatment Too Risky, Need Close Monitoring Due to Risk of Patient Decompensation, Need For Continuous Telemetry Monitoring, Need for IV Antibiotics, Risk of Complication if Not Cared For in Hospital, Risk of Diagnosis Which Will Require Inpatient Eval/Care/Monitoring Post Hospital Care: D/C Policy Intern Documentation - Plan Summary Plan Summary: Continue to hold IV fluid infusion. Start on IV Vancomycin and Mupirocin therapy.
[2018-11-25] MEDS: VANCOMYCIN HCL 1,000 MG in DEXTROSE 5%-WATER 250 ML IV SCH (14:19)
[2018-11-25] MEDS: MUPIROCIN 2% OINTMENT 22 GM TP SCH ×2 (14:19→18:22)
[2018-11-25] MEDS: ATORVASTATIN CALCIUM 40 MG TABLET PO SCH (21:42)
[2018-11-25] MEDS: MELATONIN 3 MG TABLET PO SCH (21:42)
[2018-11-25] MEDS: LATANOPROST 0.005% OPH SOLN 2.5 ML OU SCH (21:42)
[2018-11-26] MEDS: LANSOPRAZOLE 30 MG TAB.RAP.DR PO SCH (05:27)
[2018-11-26] MEDS: ACETAMINOPHEN 325 MG TABLET PO PRN ×3 (05:29→21:37)
[2018-11-26] MEDS: GABAPENTIN 100 MG CAPSULE PO SCH ×3 (05:31→21:37)
[2018-11-26 05:34] LABS: INTERNATIONAL RATION (INR) 4.98; PROTHROMBIN TIME 48.5 SEC (11.4-15.4)
[2018-11-26] MEDS: IPRATROPIUM/ALBUTEROL 0.5-2.5 MG/3 ML AMPUL NEB SCH ×4 (08:23→19:32)
[2018-11-26] MEDS: BUDESONIDE/FORMOTEROL 160-4.5 MCG 60 PUFF/6 GM MDI IH SCH ×2 (10:37→17:14)
[2018-11-26] MEDS: MUPIROCIN 2% OINTMENT 22 GM TP SCH ×3 (10:38→17:13)
[2018-11-26] MEDS: CALCIUM CARBONATE 250 MG/VITAMIN D3 125 UNIT TABLET PO SCH (10:40)
[2018-11-26] MEDS: MULTIVITAMIN TABLET PO SCH (10:41)
[2018-11-26] MEDS: VALSARTAN 40 MG TABLET PO SCH (10:41)
[2018-11-26] MEDS: CITALOPRAM HYDROBROMIDE 20 MG TABLET PO SCH (10:41)
[2018-11-26] MEDS: ACETAZOLAMIDE 500 MG CAPSULE.SA PO SCH (10:41)
[2018-11-26] MEDS: DOCUSATE SODIUM 100 MG CAPSULE PO SCH (10:41)
[2018-11-26] MEDS: METOPROLOL SUCCINATE 25 MG TAB.SR.24H PO SCH (10:41)
[2018-11-26] MEDS: DILTIAZEM HCL 120 MG CAP.SR.24H PO SCH (10:41)
[2018-11-26] MEDS: TIOTROPIUM BROMIDE DPI 5 CAP/KIT (18 MCG/CAP) IH SCH (12:28)
[2018-11-26] MEDS: VANCOMYCIN HCL 1,000 MG in DEXTROSE 5%-WATER 250 ML IV SCH (14:14)
--- NOTE | 2018-11-26 18:29 | PDOC PROGRESS REPORT ---
Subjective Progress Note for:: 11/26/18 Subjective:: Patient reported feeling better. No chest pain, fever or chills. No nausea, vomiting, or abdominal pain. Reason For Visit: COMMUNITY ACQUIRED PNEUMONIA, COPD Physical Exam Vital Signs: Temp Pulse Resp BP Pulse Ox 97.8 F 59 L 18 128/44 H 98 11/26/18 15:31 11/26/18 16:50 11/26/18 16:50 11/26/18 15:31 11/26/18 16:50 Intake & Output 11/25/18 11/26/18 11/27/18 06:59 06:59 06:59 Intake Total 2651 840 875 Output Total 500 Balance 2151 840 875 Weight 45.2 kg 43.7 kg Physical Exam: General appearance: PRESENT: mild distress - remain on supplemental oxygen and BiPAP support, thin Head exam: PRESENT: atraumatic, normocephalic Eye exam: PRESENT: conjunctiva pink, EOMI, PERRLA. ABSENT: pallor, scleral icte randy Respiratory exam: PRESENT: decreased breath sounds, prolonged expiratory phase, rhonchi Cardiovascular exam: PRESENT: irregular rhythm, +S1, +S2. ABSENT: diastolic murmur, systolic murmur GI/Abdominal exam: PRESENT: normal bowel sounds, soft. ABSENT: distended, guarding, mass, organomegaly, rebound, tenderness Extremities exam: ABSENT: pedal edema Neurological exam: PRESENT: alert, awake, oriented to person, oriented to place, oriented to time, oriented to situation, CN II-XII grossly intact. ABSENT: motor sensory deficit Psychiatric exam: PRESENT: appropriate affect, normal mood. ABSENT: homicidal ideation, suicidal ideation Skin exam: PRESENT: dry, warm Results Laboratory Results: 11/25/18 03:56 11/25/18 03:56 11/20/18 14:49 Blood Blood Culture - Final NO GROWTH IN 5 DAYS 11/20/18 13:20 Blood Blood Culture - Final NO GROWTH IN 5 DAYS Impressions: Chest X-Ray 11/24/18 00:00 IMPRESSION: Fluid overload or congestive failure with small right and small moderate left pleural effusions, alveolar and interstitial pulmonary edema. Findings are more prominent than on 11/20/2018 Assessment & Plan - Diagnosis (1) Community acquired pneumonia Qualifiers: Laterality: unspecified laterality Qualified Code(s): J18.9 - Pneumonia, unspecified organism Is this a current diagnosis for this admission?: Yes (2) KIAN (acute kidney injury) Is this a current diagnosis for this admission?: Yes (3) Acute and chronic respiratory failure with hypoxia Is this a current diagnosis for this admission?: Yes (4) COPD with exacerbation Is this a current diagnosis for this admission?: Yes (5) Chronic diastolic CHF (congestive heart failure) Is this a current diagnosis for this admission?: Yes (6) Chronic pain syndrome Is this a current diagnosis for this admission?: Yes (7) Chronic prescription opiate use Is this a current diagnosis for this admission?: Yes (8) HLD (hyperlipidemia) Qualifiers: Hyperlipidemia type: unspecified Qualified Code(s): E78.5 - Hyperlipidemia, unspecified Is this a current diagnosis for this admission?: Yes (9) HTN (hypertension) Qualifiers: Hypertension type: essential hypertension Qualified Code(s): I10 - Essential (primary) hypertension Is this a current diagnosis for this admission?: Yes (10) Mixed anxiety and depressive disorder Is this a current diagnosis for this admission?: Yes (11) MRSA (methicillin resistant Staphylococcus aureus) septicemia Is this a current diagnosis for this admission?: Yes - Time Time Spent with patient: 25-34 minutes Medications reviewed and adjusted accordingly: Yes Anticipated discharge: Home with Homehealth Within: Other - Inpatient Certification Based on my medical assessment, after consideration of the patient's comorbidities, presenting symptoms, or acuity I expect that the services needed warrant INPATIENT care.: Yes I certify that my determination is in accordance with my understanding of Medicare's requirements for reasonable and necessary INPATIENT services [42 CFR 412.3e].: Yes Medical Necessity: Significant Comorbidiites Make Outpatient Treatment Too Risky, Need Close Monitoring Due to Risk of Patient Decompensation, Need For Continuous Telemetry Monitoring, Need for Nebulizer Therapy and Monitoring of Response, Need for IV Antibiotics, Risk of Complication if Not Cared For in Hosp ital, Risk of Diagnosis Which Will Require Inpatient Eval/Care/Monitoring Post Hospital Care: D/C Aboriginal Education Worker Coordinator Documentation - Plan Summary Plan Summary: D/C IV antibiotic coverage. Start on Clindamycin 300 mg po q6 hours. Continue on all other current medication management.
[2018-11-26] MEDS: LATANOPROST 0.005% OPH SOLN 2.5 ML OU SCH (21:36)
[2018-11-26] MEDS: MELATONIN 3 MG TABLET PO SCH (21:36)
[2018-11-26] MEDS: ATORVASTATIN CALCIUM 40 MG TABLET PO SCH (21:36)
[2018-11-26] MEDS: GUAIFENESIN/D-METHORPHAN (200-20 MG) SYRUP 10 ML PO PRN (21:40)
[2018-11-27] MEDS: CLINDAMYCIN HCL 150 MG CAPSULE PO SCH ×3 (00:09→12:29)
[2018-11-27 04:59] LABS: PROTHROMBIN TIME 35.1 SEC (11.4-15.4)
[2018-11-27] MEDS: GABAPENTIN 100 MG CAPSULE PO SCH (05:07)
[2018-11-27] MEDS: LANSOPRAZOLE 30 MG TAB.RAP.DR PO SCH (05:09)
[2018-11-27 08:07] VITALS: BP 140/49
--- NOTE | 2018-11-27 08:29 | PDOC DISCHARGE SUMMARY ---
General - Admit/Disc Date/PCP Admission Date/Primary Care Provider: 11/20/18 18:04 АНДРЕЙ SUTTON Discharge Date: 11/27/18 - Discharge Diagnosis (1) Community acquired pneumonia Is this a current diagnosis for this admission?: Yes (2) KIAN (acute kidney injury) Is this a current diagnosis for this admission?: Yes (3) Acute and chronic respiratory failure with hypoxia Is this a current diagnosis for this admission?: Yes (4) COPD with exacerbation Is this a current diagnosis for this admission?: Yes (5) Chronic diastolic CHF (congestive heart failure) Is this a current diagnosis for this admission?: Yes (6) Chronic pain syndrome Is this a current diagnosis for this admission?: Yes (7) Chronic prescription opiate use Is this a current diagnosis for this admission?: Yes (8) HLD (hyperlipidemia) Is this a current diagnosis for this admission?: Yes (9) HTN (hypertension) Is this a current diagnosis for this admission?: Yes (10) Mixed anxiety and depressive disorder Is this a current diagnosis for this admission?: Yes (11) MRSA (methicillin resistant Staphylococcus aureus) septicemia Is this a current diagnosis for this admission?: Yes - Additional Information Prescriptions: Clindamycin HCl [Cleocin 150 mg Capsule] 300 mg PO Q6 10 Days #40 capsule Mupirocin [Bactroban 2% Ointment 22 gm] 1 applic TP TID #1 tube Home Medications: Acetazolamide [Diamox Sequel 500 mg] 500 mg PO DAILY 07/01/18 Albuterol Sulfate [Proair HFA Inhalation Aerosol 8.5 gm MDI] 2 puff IH Q4HP PRN 07/01/18 Budesonide/Formoterol Fumarate [Symbicort HFA 160-4.5 mcg Inhaler 6 gm] 2 puff IH BID 07/01/18 Calcium Carbonate/Vitamin D3 [Oyster Shell 500-Vit D3 200 Tb] 1 tab PO DAILY 07/01/18 Citalopram Hydrobromide [Celexa 20 mg Tablet] 20 mg PO DAILY 07/01/18 Diltiazem HCl [Diltiazem 24Hr Cd] 120 mg PO DAILY 07/01/18 Docusate Sodium [Colace 100 mg Capsule] 100 mg PO DAILY 07/01/18 Gabapentin [Neurontin 300 mg Capsule] 300 mg PO Q8 07/01/18 Latanoprost/Pf [Latanoprost 0.005% Eye Drop] 1 drop OU QHS 07/01/18 Melatonin [Melatonin 3 mg Tablet] 3 mg PO QHS 07/01/18 Metoprolol Succinate [Toprol Xl] 25 mg PO DAILY 07/01/18 Multivitamin [Multiple Vitamins] 1 tab PO DAILY 07/01/18 Pantoprazole Sodium [Protonix] 40 mg PO TID 07/01/18 Tiotropium Lorane [Spiriva Handihaler 18 mcg/dose (30 Dose)] 1 cap IH DAILY 07/01/18 Tizanidine HCl [Zanaflex 4 mg Tablet] 4 mg PO Q8 07/01/18 Valsartan [Diovan 40 mg Tablet] 40 mg PO DAILY 07/01/18 Furosemide [Lasix 20 mg Tablet] 20 mg PO DAILY #30 tablet 11/14/18 Atorvastatin Calcium [Lipitor 40 mg Tablet] 40 mg PO QHS 11/20/18 Oxycodone HCl/Acetaminophen [Oxycodon-Acetaminophen 7.5-325] 1 tab PO TID PRN 11/20/18 Clindamycin HCl [Cleocin 150 mg Capsule] 300 mg PO Q6 10 Days #40 capsule 11/27/18 Mupirocin [Bactroban 2% Ointment 22 gm] 1 applic TP TID #1 tube 11/27/18 Warfarin Sodium [Coumadin 3 mg Tablet] 3 mg PO DAILY #0 11/27/18 History of Present Illness History of Present Illness: JUNAID VILCHIS is a 73 year old female patient known to my practice who presented to the ED with her family reporting episodes of confusion, worsening shortness of breath, weakness, and fatigue. Patient reported feeling cold all the time, chills but denied definite fever. There is associated decreased appetite and oral intake. Wet but unproductive cough and chest discomfort with coughing. Patient reported progressive worsening of her symptoms over last couple of days. Her initial ED evaluation was significant for bibasilar airspace disease process. Her morbidities include COPD, chronic CHF, chronic atrial fibrillation, Hypertension, Hyperlipidemia, CAD s/p stent angioplasty, and Carotid artery stenosis s/p CEA surgery, osteoarthritis with chronic pain syndrome, and Depression. Hospital Course Hospital Course: She was admitted as case of bibasilar pneumonia. Her sputum culture grew MRSA se nsitive to Vancomycin and Clindamycin. She was initially treated wit Levofloxacin and Cefepime with addition of Vancomycin based on sputum culture findings. She was eventually transition to oral Clindamycin. She will be discharged home on oral Clindamycin for total 1o days therapy. Physical Exam Vital Signs: Temp Pulse Resp BP Pulse Ox 98.2 F 73 16 140/49 H 98 11/27/18 07:43 11/27/18 07:43 11/27/18 07:43 11/27/18 07:43 11/27/18 07:43 Intake & Output 11/26/18 11/27/18 11/28/18 06:59 06:59 06:59 Intake Total 840 1525 Balance 840 1525 Weight 43.7 kg 43.2 kg Physical Exam: General appearance: PRESENT: mild distress - remain on supplemental oxygen and BiPAP support, thin Head exam: PRESENT: atraumatic, normocephalic Eye exam: PRESENT: conjunctiva pink, EOMI, PERRLA. ABSENT: pallor, scleral icterus Respiratory exam: PRESENT: decreased breath sounds, prolonged expiratory phase, rhonchi Cardiovascular exam: PRESENT: irregular rhythm, +S1, +S2. ABSENT: diastolic murmur, systolic murmur GI/Abdominal exam: PRESENT: normal bowel sounds, soft. ABSENT: distended, guarding, mass, organomegaly, rebound, tenderness Extremities exam: ABSENT: pedal edema Neurological exam: PRESENT: alert, awake, oriented to person, oriented to place, oriented to time, oriented to situation, CN II-XII grossly intact. ABSENT: motor sensory deficit Psychiatric exam: PRESENT: appropriate affect, normal mood. ABSENT: homicidal ideation, suicidal ideation Skin exam: PRESENT: dry, warm Results Laboratory Results: 11/25/18 03:56 11/25/18 03:56 Impressions: Chest X-Ray 11/24/18 00:00 IMPRESSION: Fluid overload or congestive failure with small right and small moderate left pleural effusions, alveolar and interstitial pulmonary edema. Findings are more prominent than on 11/20/2018 Qualifiers - * PATIENT BEING DISCHARGED WITH ANY OF THE FOLLOWING DIAGNOSIS: No Plan Discharge Plan: Discharge home today. She will follow up in the office as instructed upon discharge.
[2018-11-27] MEDS: IPRATROPIUM/ALBUTEROL 0.5-2.5 MG/3 ML AMPUL NEB SCH ×2 (09:17→12:31)
[2018-11-27] MEDS: MUPIROCIN 2% OINTMENT 22 GM TP SCH (09:37)
[2018-11-27] MEDS: CALCIUM CARBONATE 250 MG/VITAMIN D3 125 UNIT TABLET PO SCH (09:37)
[2018-11-27] MEDS: VALSARTAN 40 MG TABLET PO SCH (09:37)
[2018-11-27] MEDS: DILTIAZEM HCL 120 MG CAP.SR.24H PO SCH (09:38)
[2018-11-27] MEDS: METOPROLOL SUCCINATE 25 MG TAB.SR.24H PO SCH (09:38)
[2018-11-27] MEDS: CITALOPRAM HYDROBROMIDE 20 MG TABLET PO SCH (09:38)
[2018-11-27] MEDS: DOCUSATE SODIUM 100 MG CAPSULE PO SCH (09:38)
[2018-11-27] MEDS: ACETAZOLAMIDE 500 MG CAPSULE.SA PO SCH (09:38)
[2018-11-27] MEDS: MULTIVITAMIN TABLET PO SCH (09:38)
[2018-11-27] MEDS: BUDESONIDE/FORMOTEROL 160-4.5 MCG 60 PUFF/6 GM MDI IH SCH (09:39)
[2018-11-27] MEDS: TIOTROPIUM BROMIDE DPI 5 CAP/KIT (18 MCG/CAP) IH SCH (09:39)
== END 2018-11-27 13:00 | disposition home or self-care (01) | DRG 177 ==
LOC: ER 12:50 → EH 18:04 → 3N 20:38
PROVIDERS: ADMIT Internal Medicine Geriatric Medicine; ATTEND Internal Medicine Geriatric Medicine
PROC: 5A09457 Assistance with Respiratory Ventilation, 24-96 Consecutive Hours, Continuous Positive Airway Pressure (ICD-10-PCS; principal; 2018-11-21)
DX: J15.212 Pneumonia due to Methicillin resistant Staphylococcus aureus (principal); J96.21 Acute and chronic respiratory failure with hypoxia; J44.0 Chronic obstructive pulmonary disease with (acute) lower respiratory infection; J44.1 Chronic obstructive pulmonary disease with (acute) exacerbation; I50.32 Chronic diastolic (congestive) heart failure; N17.9 Acute kidney failure, unspecified; I11.0 Hypertensive heart disease with heart failure; I48.2 Chronic atrial fibrillation; G89.4 Chronic pain syndrome; E78.5 Hyperlipidemia, unspecified; M19.90 Unspecified osteoarthritis, unspecified site; F41.8 Other specified anxiety disorders; I25.10 Atherosclerotic heart disease of native coronary artery without angina pectoris; Z79.01 Long term (current) use of anticoagulants; Z79.899 Other long term (current) drug therapy; Z95.5 Presence of coronary angioplasty implant and graft
CPT/HCPCS: 36415; 71045; 80048; 80053; 81001; 82803; 82962; 83605; 83735; 85025; 85610; 87040; 87070; 87077; 87086; 87186; 87205; 87804; 93005; 93010; 94660; 94667; 96365; 96367; 99285; J0456; J0696; J1940; J3370; J3490; J7030; J7060; J7620

== ENCOUNTER → 2019-03-13 | Outpatient (CLI) | payer MEDICARE, OTHER ==
[2019-03-13 17:48] LABS: ABSOLUTE EOSINOPHILS # (AUTO) 0.1 10^3/uL (0.0-0.6); ABSOLUTE LYMPHOCYTES (AUTO) 0.7 10^3/uL (0.5-4.7); ABSOLUTE MONOCYTES (AUTO) 0.5 10^3/uL (0.1-1.4); ABSOLUTE NEUT (AUTO) 5.4 10^3/uL (1.7-8.2); BASOPHILS % (AUTO) 0.2 % (0-2); EOSINOPHILS % (AUTO) 1.9 % (0-6); HEMATOCRIT 30.9 % (36.0-47.0); HEMOGLOBIN 9.7 g/dL (12.0-15.5); LYMPHOCYTES % (AUTO) 10.1 % (13-45); MEAN CORPUSCULAR HEMOGLOBIN 30.5 pg (27.0-33.4); MEAN CORPUSCULAR HGB CONC 31.4 g/dL (32.0-36.0); MEAN CORPUSCULAR VOLUME 97 fl (80-97); MONOCYTES % (AUTO) 8.1 % (3-13); PLATELET COUNT 196 10^3/uL (150-450); RED BLOOD COUNT 3.18 10^6/uL (3.72-5.28); RED CELL DISTRIBUTION WIDTH 16.1 % (11.5-14.0); SEGMENTED NEUTROPHILS % (AUTO) 79.7 % (42-78); TOTAL CELLS COUNTED % (AUTO) 100 %; WHITE BLOOD COUNT 6.7 10^3/uL (4.0-10.5)
[2019-03-13 18:05] LABS: ALANINE AMINOTRANSFERASE 12 U/L (9-52); ALBUMIN 3.5 g/dL (3.5-5.0); ALKALINE PHOSPHATASE 64 U/L (38-126); ANION GAP 9 (5-19); ASPARTATE AMINO TRANSFERASE 18 U/L (14-36); BILIRUBIN,DIRECT 0.2 mg/dL (0.0-0.4); BILIRUBIN,TOTAL 0.3 mg/dL (0.2-1.3); BLOOD UREA NITROGEN 20 mg/dL (7-20); CALCIUM 8.8 mg/dL (8.4-10.2); CARBON DIOXIDE 27 mmol/L (22-30); CHLORIDE 109 mmol/L (98-107); GLUCOSE 114 mg/dL (75-110); POTASSIUM 3.7 mmol/L (3.6-5.0); SODIUM 144.8 mmol/L (137-145); TOTAL PROTEIN 6.9 g/dL (6.3-8.2)
== END ==
LOC: OD 16:43
PROVIDERS: ATTEND Internal Medicine Critical Care Medicine
DX: J43.9 Emphysema, unspecified (principal); R06.00 Dyspnea, unspecified; E87.2 Acidosis; K21.9 Gastro-esophageal reflux disease without esophagitis; R09.02 Hypoxemia; J90 Pleural effusion, not elsewhere classified; J82 Pulmonary eosinophilia, not elsewhere classified
CPT/HCPCS: 36415; 80053; 85025

== ENCOUNTER 2019-03-30 19:53 | Emergency (ER) | payer MEDICARE, OTHER ==
--- NOTE | 2019-03-30 20:22 | ER Document Report ---
ED Fall - General Chief Complaint: Fall Stated Complaint: HIP PAIN Time Seen by Provider: 03/30/19 20:04 Primary Care Provider: АНДРЕЙ SUTTON MD [ACTIVE STAFF] - Follow up tomorrow Notes: Patient is a 74-year-old female who presents emergency department after a fall. Her fall happened last night she complains of sacral and coccyx pain. She states that she has not walked as much lately. She also states that she was diagnosed with bronchitis and she is actually currently on Ceftin ear by her primary care provider. She was supposed to be done with her antibiotics today, but there are 4 pills left in her bottle. She also has a past medical history of COPD, fibrillation, hypertension, GERD, hyperlipidemia, vitamin D deficiency. TRAVEL OUTSIDE OF THE [place] IN LAST 30 DAYS: No - Related data Allergies/Adverse Reactions: bee pollen [Bee Pollen] Allergy (Unknown, Verified 01/15/18 08:05) propoxyphene [From Darvocet-N] Allergy (Verified 01/15/18 08:05) venom-wasp [Wasp Venom] Allergy (Verified 01/15/18 08:05) Past Medical History - General Information source: Patient - Social History Smoking Status: Former Smoker Family History: COPD, Hypertension - Past Medical History Cardiac Medical History: Reports: Hx Atrial Fibrillation, Hx Congestive Heart Failure, Hx Coronary Artery Disease, Hx Hypercholesterolemia, Hx Hypertension Pulmonary Medical History: Reports: Hx Bronchitis, Hx COPD - stage 3, Hx Pneumonia Renal/ Medical History: Denies: Hx Peritoneal Dialysis Malignancy Medical History: Reports: Hx Breast Cancer - right, over 10 years ago GI Medical History: Reports: Hx Ulcer Musculoskeletal Medical History: Reports Hx Arthritis, Reports Hx Musculoskeletal Deformity, Reports Hx Musculoskeletal Trauma Psychiatric Medical History: Reports: Hx Anxiety, Hx Depression Traumatic Medical History: Reports: Hx Fractures Past Surgical History: Reports: Hx Breast Surgery - lumpectomy, needle biopsy - Immunizations Immunizations up to date: Yes Hx Diphtheria, Pertussis, Tetanus Vaccination: Yes Review of Systems - Review of Systems Notes: REVIEW OF SYSTEMS: CONSTITUTIONAL : Denies recent illness. Denies recent unintentional weight loss. Denies fever, chills, or sweats. EENT: Denies eye, ear, throat, or mouth pain, discharge, or symptoms. Denies nasal or sinus congestion. CARDIOVASCULAR: Denies chest pain. RESPIRATORY: Denies shortness of breath, cough, congestion, difficulty breathing, or wheezing. GASTROINTESTINAL: Denies nausea, vomiting, and diarrhea. Denies abdominal pain. Denies constipation. GENITOURINARY: Denies difficulty urinating, burning, blood in urine, urgency or frequency. MUSCULOSKELETAL: See HPI SKIN: Denies rash, itchiness, or lesions HEMATOLOGIC : Denies easy bruising or bleeding. LYMPHATIC: Denies swollen, painful, enlarged glands. NEUROLOGICAL: Denies no numbness or tingling denies weakness. Denies headache. Denies altered mental status. Denies alteration in speech. PSYCHIATRIC: Denies stress, anxiety, alteration in sleep patterns, or depression. All other systems reviewed and negative. Physical Exam - Vital signs Vitals: Temp 98.2 F 03/30/19 20:07 - Notes Notes: PHYSICAL EXAMINATION: GENERAL: Appears older than stated age, thin, no acute distress. HEAD: Normocephalic, atraumatic. EYES: PERRL, conjunctiva normal, all extraocular movements intact, sclera nonicteric ENT: Moist mucous membranes. NECK: Supple, no noticeable swelling, redness, rash. Normal range of motion. LUNGS: Equal breath sounds bilaterally and clear to auscultation. No wheezes rales or rhonchi. CARDIOVASCULAR: S1-S2, regular rate, regular rhythm. Radial pulses 2+, normal. ABDOMEN: Normoactive bowel sounds. Soft, nontender, no guarding, no rebound tenderness, and no masses palpated. EXTREMITIES: Normal strength and range of motion, no pitting or edema. No cyanosis. NEUROLOGICAL: Moves all extremities upon command. Strength 5/5 in all extremities. PSYCH: Normal mood, normal affect. SKIN: Warm, dry. No rash, lesions, ulcerations noted. Normal skin turgor. MSK: Tender at sacrum and coccyx area. Course - Re-evaluation Re-evalutation: 03/30/19 22:50 Patient has a mild leukocytosis of 12,000. Her chemistries are unremarkable. Troponin is negative. She denies any chest pain. Lactic acid is 0.9. With these lab results, I have very low suspicion for sepsis. I have advised the patient to make sure that she finishes the last 4 doses of her Cefdinir, as she was supposed to have finished them today. I also advised her to follow-up with her primary care provider and she states that she has an appointment first thing in the morning for regular visit. CT did not show any acute fracture. I suspect she had bruised her sacrum/coccyx. Waiting for urinalysis. 03/30/19 23:46 Patient's urinalysis is normal. Discussed this case with Dr. Mark. He reviewed all labs with me. He agrees with me that the patient is safe for disch arge. I have also advised her to seek physical therapy, as she is getting weaker. She states she will follow-up with her primary care provider and ask him for a referral. Follow-up precautions were given. Verbal discharge instructions were given to the patient. They verbalized understanding. They are stable for discharge. - Vital Signs Vital signs: Temp Pulse Resp BP Pulse Ox 98.2 F 21 H 122/52 L 94 03/31/19 00:01 03/31/19 00:01 03/31/19 00:01 03/31/19 00:01 - Laboratory Result Diagrams: 03/30/19 20:23 03/30/19 20:23 Laboratory results interpreted by me: 03/30/19 03/30/19 03/30/19 20:23 20:23 22:29 WBC 12.1 H RBC 3.11 L Hgb 9.3 L Hct 30.1 L MCHC 30.9 L RDW 15.6 H Seg Neutrophils % 86.8 H Lymphocytes % 6.6 L Absolute Neutrophils 10.5 H VBG pH 7.28 L Est GFR ( Amer) 59 L Est GFR (Non-Af Amer) 49 L Creatine Kinase 23 L - EKG Interpretation by Me Additional EKG results interpreted by me: 04/01/19 Atrial fibrillation at a rate of 92. QRS 74; QT 380; QTc 471. No ST elevations or depressions noted. Discharge - Discharge Clinical Impression: Right hip pain Fall Qualifiers: Encounter type: initial encounter Qualified Code(s): W19.XXXA - Unspecified fall, initial encounter Condition: Stable Disposition: HOME, SELF-CARE Additional Instructions: You were seen today in the emergency department after a fall. Your CT of your pelvis does not show any fracture. Please follow-up with your primary care provider in regards to this visit. Please take your current pain medication you are currently prescribed to help with your pain. Please make sure you walk slowly. Please talk to your primary care provider about getting physical therapy to help strengthen your muscles. If you have worsening symptoms, or have any symptoms that are worrisome to you, return to the emergency department. Please finish the last 4 doses of your antibiotics that were prescribed to you. Referrals: АНДРЕЙ SUTTON MD [ACTIVE STAFF] - Follow up tomorrow
[2019-03-30 20:39] LABS: ABSOLUTE EOSINOPHILS # (AUTO) 0.1 10^3/uL (0.0-0.6); ABSOLUTE LYMPHOCYTES (AUTO) 0.8 10^3/uL (0.5-4.7); ABSOLUTE MONOCYTES (AUTO) 0.7 10^3/uL (0.1-1.4); ABSOLUTE NEUT (AUTO) 10.5 10^3/uL (1.7-8.2); BASOPHILS % (AUTO) 0.4 % (0-2); EOSINOPHILS % (AUTO) 0.7 % (0-6); HEMATOCRIT 30.1 % (36.0-47.0); HEMOGLOBIN 9.3 g/dL (12.0-15.5); LYMPHOCYTES % (AUTO) 6.6 % (13-45); MEAN CORPUSCULAR HEMOGLOBIN 29.9 pg (27.0-33.4); MEAN CORPUSCULAR HGB CONC 30.9 g/dL (32.0-36.0); MEAN CORPUSCULAR VOLUME 97 fl (80-97); MONOCYTES % (AUTO) 5.5 % (3-13); PLATELET COUNT 278 10^3/uL (150-450); RED BLOOD COUNT 3.11 10^6/uL (3.72-5.28); RED CELL DISTRIBUTION WIDTH 15.6 % (11.5-14.0); SEGMENTED NEUTROPHILS % (AUTO) 86.8 % (42-78); TOTAL CELLS COUNTED % (AUTO) 100 %; WHITE BLOOD COUNT 12.1 10^3/uL (4.0-10.5)
[2019-03-30 21:01] LABS: ALANINE AMINOTRANSFERASE 14 U/L (9-52); ALBUMIN 3.5 g/dL (3.5-5.0); ALKALINE PHOSPHATASE 77 U/L (38-126); ANION GAP 9 (5-19); ASPARTATE AMINO TRANSFERASE 20 U/L (14-36); BILIRUBIN,DIRECT 0.4 mg/dL (0.0-0.4); BILIRUBIN,TOTAL 0.7 mg/dL (0.2-1.3); BLOOD UREA NITROGEN 19 mg/dL (7-20); CALCIUM 9.4 mg/dL (8.4-10.2); CARBON DIOXIDE 26 mmol/L (22-30); CHLORIDE 105 mmol/L (98-107); CREATINE KINASE 23 U/L (30-135); GLUCOSE 84 mg/dL (75-110); POTASSIUM 4.1 mmol/L (3.6-5.0); SODIUM 139.6 mmol/L (137-145); TOTAL PROTEIN 6.6 g/dL (6.3-8.2)
[2019-03-30 21:12] LABS: CREATINE KINASE MB 0.93 ng/mL (<4.55)
[2019-03-30 21:18] LABS: TROPONIN I < 0.012 ng/mL
--- NOTE | 2019-03-30 21:25 | RADIOLOGY REPORT (SQ) ---
EXAM DESCRIPTION: CT PELVIS WITHOUT IV CONTRAST COMPLETED DATE/TME: 03/30/2019 20:17 CLINICAL HISTORY: 74 years, Female, fall COMPARISON: None. TECHNIQUE: Noncontrast CT of the pelvis was performed. Coronal and sagittal reformations were created. Images stored on PACS. All CT scanners at this facility use dose modulation, iterative reconstruction, and/or weight based dosing when appropriate to reduce radiation dose to as low as reasonably achievable (ALARA). [facility]: Dose Right [facility]: CareDose [facility]: Dose Right [facility]: Teradose 4D [facility]: [email or web address] LIMITATIONS: None. FINDINGS: Limited evaluation of the internal abdominopelvic structures reveals multifocal calcifications about the and bilateral common iliac vessels. Extensive colonic diverticulosis is noted. Visualized portions of the small bowel appear normal in caliber. Bladder shows no suspicious abnormality. The uterus is absent. There are postsurgical changes of left inguinal hernia repair. No suspicious fractures are identified. However, there is severe spondylosis at L4-L5 and L5-S1. This is designated primarily by intervertebral disc space narrowing and anterior endplate spurring. IMPRESSION: No definite pelvic fracture identified. TECHNICAL DOCUMENTATION: Quality ID # [id number]: Final reports with documentation of one or more dose reduction techniques (e.g., Automated exposure control, adjustment of the mA and/or kV according to patient size, use of iterative reconstruction technique) copyright 2011 [employer]- All Rights Reserved
--- NOTE | 2019-03-30 21:38 | RADIOLOGY REPORT (SQ) ---
EXAM DESCRIPTION: [facility]: XR CHEST 1 VIEW CLINICAL HISTORY: 74 years Female, fall COMPARISON: 11/24/2018 FINDINGS: Heart is enlarged as on prior exam. Aortic calcifications are again noted. There is a small left pleural effusion, although decreased since prior exam. No focal acute infiltrates. Right chest wall surgical clips are again noted. IMPRESSION: 1. No acute traumatic findings. 2. Small left lateral pleural effusion versus chronic pleural thickening, improved since 11/24/2018. 3. Cardiomegaly.
[2019-03-30 22:21] LABS: APPEARANCE,URINE CLEAR; BILIRUBIN,URINE NEGATIVE (NEGATIVE); COLOR,URINE YELLOW; GLUCOSE, URINE NEGATIVE (NEGATIVE); KETONES,URINE NEGATIVE (NEGATIVE); LEUKOCYTE ESTERASE,URINE NEGATIVE (NEGATIVE); NITRITE,URINE NEGATIVE (NEGATIVE); PROTEIN,URINE NEGATIVE (NEGATIVE); UROBILINOGEN,URINE NEGATIVE mg/dL (<2.0)
[2019-03-30 22:36] LABS: VENOUS BLOOD BASE EXCESS -2.6 mmol/L; VENOUS BLOOD HCO3 24.4 mmol/L (20-32); VENOUS BLOOD PCO2 52.7 mmHg (35-63); VENOUS BLOOD PH 7.28 (7.30-7.42)
[2019-03-31 00:17] VITALS: BP 122/52
--- NOTE | 2019-03-31 01:06 | EKG REPORT ---
SEVERITY:- ABNORMAL ECG - ATRIAL FIBRILLATION : Confirmed by: Araceli Magaña MD 31-Mar-2019 01:06:10
== END 2019-03-31 00:21 | disposition home or self-care (01) ==
LOC: ER 19:53
DX: M25.551 Pain in right hip (principal); M53.3 Sacrococcygeal disorders, not elsewhere classified; W19.XXXA Unspecified fall, initial encounter; Z87.891 Personal history of nicotine dependence; I48.91 Unspecified atrial fibrillation; I50.9 Heart failure, unspecified; I25.10 Atherosclerotic heart disease of native coronary artery without angina pectoris; E78.00 Pure hypercholesterolemia, unspecified; I11.0 Hypertensive heart disease with heart failure
CPT/HCPCS: 36415; 71045; 72192; 80053; 81001; 82550; 82553; 82803; 83605; 84484; 85025; 87040; 93005; 93010; 99284

== ENCOUNTER → 2019-07-02 | Outpatient (CLI) | payer MEDICARE, OTHER ==
[2019-07-02 17:38] LABS: ABSOLUTE EOSINOPHILS # (AUTO) 0.2 10^3/uL (0.0-0.6); ABSOLUTE LYMPHOCYTES (AUTO) 0.9 10^3/uL (0.5-4.7); ABSOLUTE MONOCYTES (AUTO) 0.9 10^3/uL (0.1-1.4); ABSOLUTE NEUT (AUTO) 8.9 10^3/uL (1.7-8.2); BASOPHILS % (AUTO) 0.4 % (0-2); EOSINOPHILS % (AUTO) 1.7 % (0-6); HEMATOCRIT 27.7 % (36.0-47.0); HEMOGLOBIN 8.6 g/dL (12.0-15.5); LYMPHOCYTES % (AUTO) 8.3 % (13-45); MEAN CORPUSCULAR HEMOGLOBIN 29.6 pg (27.0-33.4); MEAN CORPUSCULAR HGB CONC 30.9 g/dL (32.0-36.0); MEAN CORPUSCULAR VOLUME 96 fl (80-97); MONOCYTES % (AUTO) 7.8 % (3-13); PLATELET COUNT 290 10^3/uL (150-450); RED CELL DISTRIBUTION WIDTH 16.8 % (11.5-14.0); SEGMENTED NEUTROPHILS % (AUTO) 81.8 % (42-78); TOTAL CELLS COUNTED % (AUTO) 100 %; WHITE BLOOD COUNT 10.9 10^3/uL (4.0-10.5)
[2019-07-02 18:06] LABS: ALBUMIN 3.4 g/dL (3.5-5.0); CALCIUM 9.2 mg/dL (8.4-10.2); PHOSPHORUS 4.2 mg/dL (2.5-4.5); POTASSIUM 4.3 mmol/L (3.6-5.0)
== END ==
LOC: OD 16:42
PROVIDERS: ATTEND Pain Medicine Interventional Pain Medicine
DX: M25.571 Pain in right ankle and joints of right foot (principal); M79.2 Neuralgia and neuritis, unspecified; R63.4 Abnormal weight loss
CPT/HCPCS: 36415; 82040; 82310; 82435; 82728; 82947; 83735; 84100; 84132; 84295; 85025

== ENCOUNTER → 2019-07-17 | Outpatient (CLI) | payer MEDICARE, OTHER ==
--- NOTE | 2019-07-17 17:47 | RADIOLOGY REPORT (SQ) ---
EXAM DESCRIPTION: SHOULDER BILAT 2 OR MORE VIEWS COMPLETED DATE/TIME: 07/17/2019 5:27 pm REASON FOR STUDY: LAURITA SHOULDER PAIN M25.511 PAIN IN RIGHT SHOULDER M25.512 PAIN IN LEFT SHOULDER COMPARISON: None. NUMBER OF VIEWS: Three views. TECHNIQUE: Internal rotation, external rotation, and Y view images acquired of the right and left sh oulder. LIMITATIONS: None. FINDINGS: MINERALIZATION: Normal. BONES: No acute fracture. No worrisome bone lesions. JOINTS: No dislocation. VISUALIZED LUNGS AND RIBS: No pneumothorax. No rib fracture. SOFT TISSUES: No radiopaque foreign body. OTHER: No other significant finding. IMPRESSION: NEGATIVE STUDY OF THE RIGHT AND LEFT SHOULDERS. NO RADIOGRAPHIC EVIDENCE OF ACUTE INJURY . TECHNICAL DOCUMENTATION: JOB ID: [id number] [email or web address]- All Rights Reserved Reading location - IP/workstation name: [email or web address]
== END ==
LOC: OD 17:00
PROVIDERS: ATTEND Pain Medicine Interventional Pain Medicine
DX: M25.511 Pain in right shoulder (principal); M25.512 Pain in left shoulder

== ENCOUNTER 2019-08-13 21:55 | Inpatient (IN) | payer MEDICARE, OTHER ==
[2019-08-13] MEDS ORDERED: PIPERACILLIN/TAZOBACTAM 3.375 GM VIAL IV PRN (23:30)
[2019-08-13] MEDS ORDERED: PIPERACILLIN SODIUM/TAZOBACTAM 3.375 GM in NORMAL SALINE 100 ML IV ONE (23:30)
[2019-08-13] MEDS ORDERED: ACETAMINOPHEN 325 MG TABLET PO PRN (23:42)
[2019-08-13 23:54] LABS: ABSOLUTE EOSINOPHILS # (AUTO) 0.2 10^3/uL (0.0-0.6); ABSOLUTE LYMPHOCYTES (AUTO) 0.9 10^3/uL (0.5-4.7); ABSOLUTE NEUT (AUTO) 11.3 10^3/uL (1.7-8.2); BASOPHILS % (AUTO) 0.2 % (0-2); EOSINOPHILS % (AUTO) 1.7 % (0-6); HEMATOCRIT 25.5 % (36.0-47.0); MEAN CORPUSCULAR HEMOGLOBIN 29.4 pg (27.0-33.4); MEAN CORPUSCULAR HGB CONC 30.6 g/dL (32.0-36.0); MEAN CORPUSCULAR VOLUME 96 fl (80-97); MONOCYTES % (AUTO) 7.5 % (3-13); PLATELET COUNT 333 10^3/uL (150-450); RED BLOOD COUNT 2.65 10^6/uL (3.72-5.28); RED CELL DISTRIBUTION WIDTH 17.8 % (11.5-14.0); SEGMENTED NEUTROPHILS % (AUTO) 83.6 % (42-78); TOTAL CELLS COUNTED % (AUTO) 100 %; WHITE BLOOD COUNT 13.5 10^3/uL (4.0-10.5)
[2019-08-13 23:55] LABS: HEMOGLOBIN 7.8 g/dL (12.0-15.5)
[2019-08-13] MEDS ORDERED: PIPERACILLIN/TAZOBACTAM 3.375 GM VIAL IV ONE (23:55)
[2019-08-14] MEDS ORDERED: (PENDING PHARMACY ID) (Oxycodone Hcl/Acetaminophen [Oxycodon-Acetaminophen 7.5-325] 1 TAB) PO PRN (00:04)
[2019-08-14] MEDS ORDERED: ALBUTEROL SULFATE HFA (90 MCG/PUFF) 200 PUFF/8.5 GM MDI IH PRN (00:04)
[2019-08-14 00:09] LABS: ALBUMIN 3.4 g/dL (3.5-5.0); ALKALINE PHOSPHATASE 85 U/L (38-126); ANION GAP 11 (5-19); ASPARTATE AMINO TRANSFERASE 18 U/L (14-36); BILIRUBIN,DIRECT 0.2 mg/dL (0.0-0.4); BILIRUBIN,TOTAL 0.4 mg/dL (0.2-1.3); BLOOD UREA NITROGEN 13 mg/dL (7-20); CALCIUM 9.4 mg/dL (8.4-10.2); CARBON DIOXIDE 27 mmol/L (22-30); CHLORIDE 103 mmol/L (98-107); GLUCOSE 120 mg/dL (75-110); POTASSIUM 3.7 mmol/L (3.6-5.0); TOTAL PROTEIN 7.3 g/dL (6.3-8.2)
[2019-08-14] MEDS ORDERED: ATORVASTATIN CALCIUM 40 MG TABLET PO ONE (00:15)
[2019-08-14] MEDS ORDERED: TIZANIDINE HCL 4 MG TABLET PO ONE (00:30)
[2019-08-14] MEDS ORDERED: MELATONIN 3 MG TABLET PO ONE (00:30)
[2019-08-14] MEDS: PIPERACILLIN SODIUM/TAZOBACTAM 3.375 GM in NORMAL SALINE 100 ML IV SCH ×3 (01:38→17:04)
[2019-08-14] MEDS: TIZANIDINE HCL 4 MG TABLET PO SCH ×3 (05:54→21:27)
[2019-08-14] MEDS: PANTOPRAZOLE SODIUM 40 MG TABLET.DR PO SCH (05:56)
[2019-08-14] MEDS: OXYCODONE-ACETAMINOPHEN 5-325 MG TABLET PO PRN (05:57)
[2019-08-14] MEDS: IPRATROPIUM/ALBUTEROL 0.5-2.5 MG/3 ML AMPUL NEB PRN ×2 (06:28→22:48)
[2019-08-14] MEDS ORDERED: FLUTICASONE/VILANTEROL 200-25 MCG/DOSE IH SCH (08:00)
[2019-08-14] MEDS ORDERED: UMECLIDINIUM BROMIDE 62.5 MCG/DOSE IH SCH (08:00)
--- NOTE | 2019-08-14 08:32 | PDOC H&P ---
History of Present Illness Admission Date/PCP: 08/13/19 21:55 АНДРЕЙ SUTTON Patient complains of: Worsening difficulty with breathing History of Present Illness: JUNAID VILCHIS is a 74 year old female known to my practice who presented to the office due to worsening difficulty with breathing, increase cough and sputum production. She claimed low grade fever and always feeling cold. There is associated nausea and poor appreciated. She reported nasal and sinus congestion. She denied ongoing cigarette smoking but has significant history of smoking and underlying supplemental oxygen dependent COPD. Her initial evaluation in the office was significant for anemia with leukocytosis with scattered wet crackles of examination. She was advised hospitalization for further evaluation and management. Her morbidities are as listed below. Past Medical History Cardiac Medical History: Reports: Atrial Fibrillation, Congestive Heart Failure, Coronary Artery Disease, Hyperlipidema, Hypertension Pulmonary Medical History: Reports: Bronchitis, Chronic Obstructive Pulmonary Disease (COPD) - stage 3, Pneumonia Malignancy Medical History: Reports: Breast Cancer - right, over 10 years ago Musculoskeltal Medical History: Reports: Arthritis Psychiatric Medical History: Reports: Depression Social History Smoking Status: Former Smoker Frequency of Alcohol Use: None Hx Recreational Drug Use: No Drugs: None Hx Prescription Drug Abuse: No Family History Family History: COPD, Hypertension Parental Family History Reviewed: Yes Children Family History Reviewed: Yes Sibling(s) Family History Reviewed.: Yes Medication/Allergy Home Medications: Acetazolamide [Diamox Sequel 500 mg] 500 mg PO DAILY 07/01/18 Albuterol Sulfate [Proair HFA Inhalation Aerosol 8.5 gm MDI] 2 puff IH Q4HP PRN 07/01/18 Budesonide/Formoterol Fumarate [Symbicort HFA 160-4.5 mcg Inhaler 6 gm] 2 puff IH Q12 07/01/18 Calcium Carbonate/Vitamin D3 [Oyster Shell 500-Vit D3 200 Tb] 1 tab PO DAILY 07/01/18 Citalopram Hydrobromide [Celexa 20 mg Tablet] 20 mg PO DAILY 07/01/18 Diltiazem HCl [Diltiazem 24Hr Cd] 120 mg PO DAILY 07/01/18 Gabapentin [Neurontin 300 mg Capsule] 300 mg PO Q8 07/01/18 Melatonin [Melatonin 3 mg Tablet] 3 mg PO QHS 07/01/18 Metoprolol Succinate [Toprol Xl] 25 mg PO DAILY 07/01/18 Multivitamin [Multiple Vitamins] 1 tab PO DAILY 07/01/18 Pantoprazole Sodium [Protonix] 40 mg PO DAILY 07/01/18 Tiotropium [place] [Spiriva Handihaler 18 mcg/dose (30 Dose)] 1 cap IH DAILY 07/01/18 Valsartan [Diovan 40 mg Tablet] 40 mg PO DAILY 07/01/18 Furosemide [Lasix 20 mg Tablet] 20 mg PO DAILY #30 tablet 11/14/18 Atorvastatin Calcium [Lipitor 40 mg Tablet] 40 mg PO QHS 11/20/18 Oxycodone HCl/Acetaminophen [Oxycodon-Acetaminophen 7.5-325] 1 tab PO Q8HP PRN 11/20/18 Latanoprost [Xalatan 0.005% Oph Soln 2.5 ml] 1 drop OU QHS 08/14/19 Venlafaxine HCl [Effexor 75 mg Tablet] 75 mg PO DAILY 08/14/19 Warfarin Sodium [Coumadin 3 mg Tablet] 3 mg PO QHS 08/14/19 Allergies/Adverse Reactions: bee pollen [Bee Pollen] Allergy (Unknown, Verified 01/15/18 08:05) moxifloxacin [From Avelox] Allergy (Verified 08/13/19 23:24) propoxyphene [From Darvocet-N] Allergy (Verified 01/15/18 08:05) venom-wasp [Wasp Venom] Allergy (Verified 01/15/18 08:05) Review of Systems Constitutional: PRESENT: chills, fever(s), weakness Eyes: ABSENT: visual disturbances Ears: ABSENT: hearing changes Nose, Mouth, and Throat: ABSENT: as per HPI, headache(s), mouth pain, sore throat, vertigo, other Cardiovascular: PRESENT: dyspnea on exertion. ABSENT: as per HPI, chest pain, edema, orthropnea, palpitations, other Respiratory: PRESENT: cough, dyspnea Gastrointestinal: PRESENT: nausea. ABSENT: as per HPI, abdominal pain, bloating, coffee ground emesis, constipation, diarrhea, dysphagia, heartburn, hematemesis, hematochezia, melena, vomiting, other Genitourinary: ABSENT: dysuria, hematuria Musculoskeletal: ABSENT: joint swelling Integumentary: ABSENT: as per HPI, diaphoresis, erythema, lesions, pruritus, rash, wounds, other Neurological: ABSENT: abnormal gait, abnormal speech, confusion, dizziness, focal weakness, syncope Psychiatric: ABSENT: anxiety, depression, homidical ideation, suicidal ideation Endocrine: ABSENT: cold intolerance, heat intolerance, polydipsia, polyuria Hematologic/Lymphatic: ABSENT: easy bleeding, easy bruising, lymphadenopathy Allergic/Immunologic: ABSENT: seasonal rhinorrhea Physical Exam General appearance: PRESENT: mild distress - remain on supplemental oxygen at 2L/min, thin Head exam: PRESENT: atraumatic, normocephalic Eye exam: PRESENT: conjunctiva pink, EOMI, PERRLA. ABSENT: scleral icterus Ear exam: PRESENT: normal external ear exam Mouth exam: PRESENT: moist Teeth exam: PRESENT: poor dentation Respiratory exam: PRESENT: crackles, decreased breath sounds Cardiovascular exam: PRESENT: RRR. ABSENT: diastolic murmur, rubs, systolic murmur Vascular exam: PRESENT: pallor GI/Abdominal exam: PRESENT: normal bowel sounds, soft. ABSENT: distended, guarding, mass, organolmegaly, rebound, tenderness Rectal exam: PRESENT: deferred Extremities exam: ABSENT: pedal edema Musculoskeletal exam: PRESENT: deformity - related to multiple joints involvement with arthritis Neurological exam: PRESENT: alert, awake, oriented to person, oriented to place, oriented to time, oriented to situation, CN II-XII grossly intact. ABSENT: motor sensory deficit Psychiatric exam: PRESENT: appropriate affect, normal mood. ABSENT: homicidal ideation, suicidal ideation Skin exam: PRESENT: dry, warm Results Laboratory Results: Not available at the time of my documentation. Assessment & Plan - Diagnosis (1) Anemia requiring transfusions Is this a current diagnosis for this admission?: Yes Plan: See admitting attending physician orders for details about care plan. (2) COPD with exacerbation Is this a current diagnosis for this admission?: Yes Plan: See admitting attending physician orders for details about care plan. (3) Chronic atrial fibrillation Is this a current diagnosis for this admission?: Yes Plan: See admitting attending physician orders for details about care plan. (4) Chronic diastolic CHF (congestive heart failure) Is this a current diagnosis for this admission?: Yes Plan: See admitting attending physician orders for details about care plan. (5) HTN (hypertension) Qualifiers: Hypertension type: essential hypertension Qualified Code(s): I10 - Essential (primary) hypertension Is this a current diagnosis for this admission?: Yes Plan: See admitting attending physician orders for details about care plan. (6) HLD (hyperlipidemia) Qualifiers: Hyperlipidemia type: unspecified Qualified Code(s): E78.5 - Hyperlipidemia, unspecified Is this a current diagnosis for this admission?: Yes Plan: See admitting attending physician orders for details about care plan. (7) Mixed anxiety and depressive disorder Is this a current diagnosis for this admission?: Yes Plan: See admitting attending physician orders for details about care plan. - Time Time Spent: 50 to 70 Minutes Medications reviewed and adjusted accordingly: Yes Anticipated discharge: Home with Homehealth Within: Other - Inpatient Certification Based on my medical assessment, after consideration of the patient's comorbidities, presenting symptoms, or acuity I expect that the services needed warrant INPATIENT care.: Yes I certify that my determination is in accordance with my understanding of Medicare's requirements for reasonable and necessary INPATIENT services [42 CFR 412.3e].: Yes Medical Necessity: Significant Comorbidiites Make Outpatient Treatment Too Risky, Need Close Monitoring Due to Risk of Patient Decompensation, Need For IV Fluids, Need For Continuous Telemetry Monitoring, Need for Nebulizer Therapy and Monitoring of Response, Need for IV Antibiotics, Risk of Complication if Not Cared For in Hospital, Risk of Diagnosis Which Will Require Inpatient Eval/Care/Monitoring Post Hospital Care: D/C [employer] Documentation - Plan Summary Plan Summary: See admitting attending physician orders for details about care plan.
--- NOTE | 2019-08-14 08:38 | PDOC PROGRESS REPORT ---
Subjective Progress Note for:: 08/14/19 Subjective:: Patient currently undergoing blood transfusion. No chest pain. Remain on supplemental oxygen. No fever. Remain chilly. No nausea or vomiting. No abdominal pain. Reason For Visit: ACUTE EXACERBATION OF COPD ANEMIA WITH NEED FOR Physical Exam Vital Signs: Temp Pulse Resp BP Pulse Ox 98.4 F 101 H 16 145/49 H 97 08/14/19 06:35 08/14/19 06:35 08/14/19 06:35 08/14/19 06:35 08/14/19 06:35 Intake & Output 08/13/19 08/14/19 08/15/19 06:59 06:59 06:59 Intake Total 400 Output Total 0 Balance 400 Weight 37.9 kg General appearance: PRESENT: mild distress - on supplemental oxygen via nasal cannula, thin Head exam: PRESENT: atraumatic, normocephalic Eye exam: PRESENT: conjunctiva pink. ABSENT: scleral icterus Ear exam: PRESENT: normal external ear exam Mouth exam: PRESENT: moist Teeth exam: PRESENT: poor dentation Respiratory exam: PRESENT: crackles - at lung bases, decreased breath sounds Cardiovascular exam: PRESENT: RRR, +S1, +S2. ABSENT: diastolic murmur, rubs, systolic murmur Vascular exam: ABSENT: pallor GI/Abdominal exam: PRESENT: normal bowel sounds, soft. ABSENT: distended, guarding, mass, organolmegaly, rebound, tenderness Extremities exam: ABSENT: pedal edema Neurological exam: PRESENT: alert, awake, oriented to person, oriented to place, oriented to time, oriented to situation, CN II-XII grossly intact. ABSENT: motor sensory deficit Psychiatric exam: PRESENT: appropriate affect, normal mood. ABSENT: homicidal ideation, suicidal ideation Skin exam: PRESENT: dry, warm Results Laboratory Results: 08/13/19 23:35 08/13/19 23:35 08/13/19 08/13/19 08/13/19 23:35 23:35 23:35 WBC 13.5 H RBC 2.65 L Hgb 7.8 L Hct 25.5 L MCV 96 MCH 29.4 MCHC 30.6 L RDW 17.8 H Plt Count 333 Seg Neutrophils % 83.6 H Sodium 140.7 Potassium 3.7 Chloride 103 Carbon Dioxide 27 Anion Gap 11 BUN 13 Creatinine 0.85 Est GFR ( Amer) > 60 Glucose 120 H Calcium 9.4 Total Bilirubin 0.4 AST 18 Alkaline Phosphatase 85 Total Protein 7.3 Albumin 3.4 L Blood Type A POSITIVE Antibody Screen NEGATIVE Assessment & Plan - Diagnosis (1) Anemia requiring transfusions Is this a current diagnosis for this admission?: Yes Plan: Follow up on post transfusion CBC. Follow up on stool occult blood testing result. (2) COPD with exacerbation Is this a current diagnosis for this admission?: Yes Plan: Continue current medication management (3) Chronic atrial fibrillation Is this a current diagnosis for this admission?: Yes Plan: Continue current medication management (4) Chronic diastolic CHF (congestive heart failure) Is this a current diagnosis for this admission?: Yes Plan: Continue current medication management (5) HLD (hyperlipidemia) Qualifiers: Hyperlipidemia type: unspecified Qualified Code(s): E78.5 - Hyperlipidemia, unspecified Is this a current diagnosis for this admission?: Yes Plan: Continue current medication management (6) HTN (hypertension) Qualifiers: Hypertension type: essential hypertension Qualified Code(s): I10 - Essential (primary) hypertension Is this a current diagnosis for this admission?: Yes Plan: Continue current medication management - Time Time Spent with patient: 25-34 minutes Medications reviewed and adjusted accordingly: Yes Anticipated discharge: Home with Homehealth Within: Other - Inpatient Certification Based on my medical assessment, after consideration of the patient's comorbidities, presenting symptoms, or acuity I expect that the services needed warrant INPATIENT care.: Yes I certify that my determination is in accordance with my understanding of Medicare's requirements for reasonable and necessary INPATIENT services [42 CFR 412.3e].: Yes Medical Necessity: Significant Comorbidiites Make Outpatient Treatment Too Risky, Need Close Monitoring Due to Risk of Patient Decompensation, Need For Continuous Telemetry Monitoring, Need for IV Antibiotics, Risk of Complication if Not Cared For in Hospital, Risk of Diagnosis Which Will Require Inpatient Eval/Care/Monitoring Post Hospital Care: D/C [employer] Documentation - Plan Summary Plan Summary: Continue current medication management. Obtain portable chest X ray.
[2019-08-14] MEDS ORDERED: (PENDING PHARMACY ID) (Calcium Carbonate/Vitamin D3 [Oyster Shell 500-Vit D3 200 Tb] 1 TAB PO SCH (10:00)
[2019-08-14] MEDS ORDERED: [UNRECOGNIZED DRUG - OTHER] IH SCH (10:00)
[2019-08-14] MEDS ORDERED: TIOTROPIUM BROMIDE IH SCH (10:00)
[2019-08-14] MEDS ORDERED: (PENDING PHARMACY ID) (Warfarin Sodium 3 MG) PO SCH (10:00)
[2019-08-14 11:14] LABS: ABSOLUTE EOSINOPHILS # (AUTO) 0.2 10^3/uL (0.0-0.6); ABSOLUTE LYMPHOCYTES (AUTO) 0.7 10^3/uL (0.5-4.7); ABSOLUTE MONOCYTES (AUTO) 0.9 10^3/uL (0.1-1.4); BASOPHILS % (AUTO) 0.4 % (0-2); EOSINOPHILS % (AUTO) 1.4 % (0-6); HEMATOCRIT 33.8 % (36.0-47.0); LYMPHOCYTES % (AUTO) 5.3 % (13-45); MEAN CORPUSCULAR HEMOGLOBIN 27.9 pg (27.0-33.4); MEAN CORPUSCULAR HGB CONC 31.4 g/dL (32.0-36.0); PLATELET COUNT 270 10^3/uL (150-450); RED BLOOD COUNT 3.81 10^6/uL (3.72-5.28); RED CELL DISTRIBUTION WIDTH 24.2 % (11.5-14.0); SEGMENTED NEUTROPHILS % (AUTO) 85.9 % (42-78); TOTAL CELLS COUNTED % (AUTO) 100 %; WHITE BLOOD COUNT 12.8 10^3/uL (4.0-10.5)
[2019-08-14 11:15] LABS: INTERNATIONAL RATION (INR) 2.07; PROTHROMBIN TIME 23.6 SEC (11.4-15.4)
[2019-08-14 11:25] LABS: HEMOGLOBIN 10.6 g/dL (12.0-15.5); MEAN CORPUSCULAR VOLUME 89 fl (80-97)
[2019-08-14 11:55] LABS: ANISOCYTOSIS SLIGHT; OVALOCYTES SLIGHT; POIKILOCYTOSIS SLIGHT; POLYCHROMASIA SLIGHT; SCHISTOCYTES SLIGHT
[2019-08-14 11:56] LABS: PLATELET COMMENT ADEQUATE; TOXIC GRANULATION SLIGHT
--- NOTE | 2019-08-14 12:10 | RADIOLOGY REPORT (SQ) ---
EXAM DESCRIPTION: CHEST SINGLE VIEW COMPLETED DATE/TIME: 08/14/2019 9:34 am REASON FOR STUDY: difficulty with breathing, copd COMPARISON: 03/30/2019 NUMBER OF VIEWS: One view. TECHNIQUE: Single frontal radiographic image of the chest acquired. LIMITATIONS: None. FINDINGS: LUNGS AND PLEURA: Diffuse bilateral airspace disease. Small effusions. MEDIASTINUM AND HEART: Stable heart size and mediastinal structures. BONY STRUCTURES: No acute findings. HARDWARE: None. OTHER: No other significant finding. IMPRESSION: Chronic CHF. TECHNICAL DOCUMENTATION: JOB ID: [id number] Reading location - IP/workstation name: [email or web address]-
[2019-08-14] MEDS: MUPIROCIN 2% OINTMENT 22 GM TP SCH ×3 (13:38→17:32)
[2019-08-14] MEDS: DILTIAZEM HCL 120 MG CAP.SR.24H PO SCH (13:48)
[2019-08-14] MEDS: FLUTICASONE/VILANTEROL 200-25 MCG/DOSE IH SCH (13:48)
[2019-08-14] MEDS: CITALOPRAM HYDROBROMIDE 20 MG TABLET PO SCH (13:53)
[2019-08-14] MEDS: DOCUSATE SODIUM 100 MG CAPSULE PO SCH (13:54)
[2019-08-14] MEDS: VALSARTAN 40 MG TABLET PO SCH (13:54)
[2019-08-14] MEDS: UMECLIDINIUM BROMIDE 62.5 MCG/DOSE IH SCH (13:55)
[2019-08-14] MEDS: CALCIUM CARBONATE 250 MG/VITAMIN D3 125 UNIT TABLET PO SCH (13:56)
[2019-08-14] MEDS: MULTIVITAMIN TABLET PO SCH (13:56)
[2019-08-14] MEDS: METOPROLOL SUCCINATE 25 MG TAB.SR.24H PO SCH (16:33)
[2019-08-14] MEDS: LATANOPROST 0.005% OPH SOLN 2.5 ML OU SCH (21:22)
[2019-08-14] MEDS: MELATONIN 3 MG TABLET PO SCH (21:23)
[2019-08-14] MEDS: WARFARIN SODIUM 3 MG TABLET PO SCH (21:26)
[2019-08-14] MEDS: ATORVASTATIN CALCIUM 40 MG TABLET PO SCH (21:28)
[2019-08-14] MEDS ORDERED: DILTIAZEM HCL 120 MG CAP.SR.24H PO ONE (22:00)
[2019-08-14] MEDS ORDERED: LATANOPROST 0.005% OPH SOLN 2.5 ML OU SCH (22:00)
[2019-08-14] MEDS ORDERED: (PENDING PHARMACY ID) (Latanoprost/Pf [Latanoprost 0.005% Eye Drop] 1 DROP) OU SCH (22:00)
[2019-08-14] MEDS ORDERED: WARFARIN SODIUM 3 MG TABLET PO SCH (22:00)
[2019-08-15] MEDS: PIPERACILLIN SODIUM/TAZOBACTAM 3.375 GM in NORMAL SALINE 100 ML IV SCH ×3 (01:18→18:27)
[2019-08-15] MEDS: NORMAL SALINE 1000 ML 1,000 ML IV PRN ×2 (01:50→21:06)
[2019-08-15] MEDS: TIZANIDINE HCL 4 MG TABLET PO SCH ×3 (05:28→21:08)
[2019-08-15] MEDS: PANTOPRAZOLE SODIUM 40 MG TABLET.DR PO SCH (05:28)
[2019-08-15 05:42] LABS: HEMATOCRIT 34.3 % (36.0-47.0); HEMOGLOBIN 10.7 g/dL (12.0-15.5); MEAN CORPUSCULAR HEMOGLOBIN 28.1 pg (27.0-33.4); MEAN CORPUSCULAR HGB CONC 31.3 g/dL (32.0-36.0); MEAN CORPUSCULAR VOLUME 90 fl (80-97); PLATELET COUNT 281 10^3/uL (150-450); RED BLOOD COUNT 3.83 10^6/uL (3.72-5.28); RED CELL DISTRIBUTION WIDTH 23.9 % (11.5-14.0); WHITE BLOOD COUNT 16.1 10^3/uL (4.0-10.5)
[2019-08-15 05:52] LABS: INTERNATIONAL RATION (INR) 2.44
[2019-08-15] MEDS: DILTIAZEM HCL 120 MG CAP.SR.24H PO SCH (10:00)
[2019-08-15] MEDS: FLUTICASONE/VILANTEROL 200-25 MCG/DOSE IH SCH (14:59)
[2019-08-15] MEDS: VALSARTAN 40 MG TABLET PO SCH (15:02)
[2019-08-15] MEDS: DOCUSATE SODIUM 100 MG CAPSULE PO SCH (15:02)
[2019-08-15] MEDS: CITALOPRAM HYDROBROMIDE 20 MG TABLET PO SCH (15:02)
[2019-08-15] MEDS: UMECLIDINIUM BROMIDE 62.5 MCG/DOSE IH SCH (15:03)
[2019-08-15] MEDS: CALCIUM CARBONATE 250 MG/VITAMIN D3 125 UNIT TABLET PO SCH (15:07)
[2019-08-15] MEDS: MULTIVITAMIN TABLET PO SCH (15:09)
[2019-08-15] MEDS: METOPROLOL SUCCINATE 25 MG TAB.SR.24H PO SCH (15:11)
[2019-08-15] MEDS: MUPIROCIN 2% OINTMENT 22 GM TP SCH ×2 (15:16→18:22)
--- NOTE | 2019-08-15 17:25 | PDOC PROGRESS REPORT ---
Subjective Progress Note for:: 08/15/19 Subjective:: Patient continue to experience coughing spells and particularly with eating and drinking thin liquids. No fever but there are episodes of chills. Complain about shoulder joints aches and pain. No chest pain. No nausea, vomiting, or abdominal pain. Reason For Visit: ACUTE EXACERBATION OF COPD ANEMIA WITH NEED FOR Physical Exam Vital Signs: Temp Pulse Resp BP Pulse Ox 97.7 F 80 16 96/23 L 100 08/15/19 07:43 08/15/19 11:33 08/15/19 11:33 08/15/19 07:43 08/15/19 11:33 Intake & Output 08/14/19 08/15/19 08/16/19 06:59 06:59 06:59 Intake Total 400 1050 360 Output Total 0 100 Balance 400 950 360 Weight 37.9 kg 40.6 kg Physical Exam: General appearance: PRESENT: mild distress - on supplemental oxygen via nasal cannula, thin Head exam: PRESENT: atraumatic, normocephalic Eye exam: PRESENT: conjunctiva pink. ABSENT: pallor, scleral icterus Ear exam: PRESENT: normal external ear exam Mouth exam: PRESENT: moist Teeth exam: PRESENT: poor dentition Respiratory exam: PRESENT: crackles - at lung bases, decreased breath sounds Cardiovascular exam: PRESENT: RRR, +S1, +S2. ABSENT: diastolic murmur, rubs, systolic murmur GI/Abdominal exam: PRESENT: normal bowel sounds, soft. ABSENT: distended, guarding, mass, organomegaly, rebound, tenderness Extremities exam: PRESENT: Features and deformities of arthritis with palpable crepitations in shoulder joints. ABSENT: pedal edema Neurological exam: PRESENT: alert, awake, oriented to person, oriented to place, oriented to time, oriented to situation, CN II-XII grossly intact. ABSENT: motor sensory deficit Psychiatric exam: PRESENT: appropriate affect, normal mood. ABSENT: homicidal ideation, suicidal ideation Skin exam: PRESENT: dry, warm Results Laboratory Results: 08/15/19 04:52 08/13/19 23:35 08/15/19 04:52 WBC 16.1 H RBC 3.83 Hgb 10.7 L Hct 34.3 L MCV 90 MCH 28.1 MCHC 31.3 L RDW 23.9 H Plt Count 281 Impressions: Chest X-Ray 08/14/19 00:00 IMPRESSION: Chronic CHF. Assessment & Plan - Diagnosis (1) Anemia requiring transfusions Is this a current diagnosis for this admission?: Yes (2) COPD with exacerbation Is this a current diagnosis for this admission?: Yes (3) Chronic atrial fibrillation Is this a current diagnosis for this admission?: Yes (4) Chronic diastolic CHF (congestive heart failure) Is this a current diagnosis for this admission?: Yes (5) HLD (hyperlipidemia) Qualifiers: Hyperlipidemia type: unspecified Qualified Code(s): E78.5 - Hyperlipidemia, unspecified Is this a current diagnosis for this admission?: Yes (6) HTN (hypertension) Qualifiers: Hypertension type: essential hypertension Qualified Code(s): I10 - Essential (primary) hypertension Is this a current diagnosis for this admission?: Yes - Time Time Spent with patient: 25-34 minutes Level of Care: IMCU Medications reviewed and adjusted accordingly: Yes Anticipated discharge: Home with Homehealth Within: Other - Inpatient Certification Based on my medical assessment, after consideration of the patient's comorbidities, presenting symptoms, or acuity I expect that the services needed warrant INPATIENT care.: Yes I certify that my determination is in accordance with my understanding of Medicare's requirements for reasonable and necessary INPATIENT services [42 CFR 412.3e].: Yes Medical Necessity: Significant Comorbidiites Make Outpatient Treatment Too Risky, Need Close Monitoring Due to Risk of Patient Decompensation, Need For Continuous Telemetry Monitoring, Need for Nebulizer Therapy and Monitoring of Response, Need for IV Antibiotics, Risk of Complication if Not Cared For in H ospital, Risk of Diagnosis Which Will Require Inpatient Eval/Care/Monitoring Post Hospital Care: D/C Wait Staff Documentation - Plan Summary Plan Summary: Continue current medication management. Maintain on supplemental oral nutrition Obtain speech path evaluation for swallowing and increase risk of aspiration.
[2019-08-15] MEDS: WARFARIN SODIUM 3 MG TABLET PO SCH (21:07)
[2019-08-15] MEDS: ATORVASTATIN CALCIUM 40 MG TABLET PO SCH (21:07)
[2019-08-15] MEDS: GUAIFENESIN SYRP 200 MG/10 ML UDC PO PRN (21:07)
[2019-08-15] MEDS: MELATONIN 3 MG TABLET PO SCH (21:08)
[2019-08-15] MEDS: OXYCODONE-ACETAMINOPHEN 5-325 MG TABLET PO PRN (21:08)
[2019-08-15] MEDS: OXYCODONE HCL IR 5 MG TABLET PO PRN (21:09)
[2019-08-15] MEDS: LATANOPROST 0.005% OPH SOLN 2.5 ML OU SCH (21:12)
[2019-08-16] MEDS: PIPERACILLIN SODIUM/TAZOBACTAM 3.375 GM in NORMAL SALINE 100 ML IV SCH ×3 (02:00→17:32)
[2019-08-16 05:08] LABS: INTERNATIONAL RATION (INR) 2.73; PROTHROMBIN TIME 29.5 SEC (11.4-15.4)
[2019-08-16] MEDS: TIZANIDINE HCL 4 MG TABLET PO SCH ×3 (05:56→21:48)
[2019-08-16] MEDS: PANTOPRAZOLE SODIUM 40 MG TABLET.DR PO SCH (06:36)
[2019-08-16] MEDS: DILTIAZEM HCL 120 MG CAP.SR.24H PO SCH (10:17)
[2019-08-16] MEDS: VALSARTAN 40 MG TABLET PO SCH (10:17)
[2019-08-16] MEDS: MULTIVITAMIN TABLET PO SCH (10:17)
[2019-08-16] MEDS: CITALOPRAM HYDROBROMIDE 20 MG TABLET PO SCH (10:17)
[2019-08-16] MEDS: CALCIUM CARBONATE 250 MG/VITAMIN D3 125 UNIT TABLET PO SCH (10:17)
[2019-08-16] MEDS: MUPIROCIN 2% OINTMENT 22 GM TP SCH ×3 (10:18→17:36)
[2019-08-16] MEDS: METOPROLOL SUCCINATE 25 MG TAB.SR.24H PO SCH (10:18)
[2019-08-16] MEDS: DOCUSATE SODIUM 100 MG CAPSULE PO SCH (10:18)
[2019-08-16] MEDS: FLUTICASONE/VILANTEROL 200-25 MCG/DOSE IH SCH (10:20)
[2019-08-16] MEDS: UMECLIDINIUM BROMIDE 62.5 MCG/DOSE IH SCH (10:21)
--- NOTE | 2019-08-16 10:41 | PDOC PROGRESS REPORT ---
Subjective Progress Note for:: 08/16/19 Subjective:: Patient is admitted for the pneumonia and COPD Patient is still coughing I think patient is silently aspirate Patient's denied any chest pain no short of breath Reason For Visit: ACUTE EXACERBATION OF COPD ANEMIA WITH NEED FOR Physical Exam Vital Signs: Temp Pulse Resp BP Pulse Ox 97.7 F 101 H 12 132/54 H 97 08/16/19 06:49 08/16/19 07:47 08/16/19 06:49 08/16/19 07:47 08/16/19 07:47 Intake & Output 08/15/19 08/16/19 08/17/19 06:59 06:59 06:59 Intake Total 1050 2503 Output Total 100 0 Balance 950 2503 Weight 40.6 kg 40.7 kg General appearance: PRESENT: no acute distress, well-developed, well-nourished Head exam: PRESENT: atraumatic, normocephalic Eye exam: PRESENT: conjunctiva pink, EOMI, PERRLA. ABSENT: scleral icterus Ear exam: PRESENT: normal external ear exam Mouth exam: PRESENT: moist, tongue midline Neck exam: PRESENT: full ROM. ABSENT: carotid bruit, JVD, lymphadenopathy, thyromegaly Respiratory exam: PRESENT: decreased breath sounds Cardiovascular exam: PRESENT: RRR. ABSENT: diastolic murmur, rubs, systolic murmur Pulses: PRESENT: normal dorsalis pedis pul, +2 pedal pulses bilateral Vascular exam: PRESENT: normal capillary refill GI/Abdominal exam: PRESENT: normal bowel sounds, soft. ABSENT: distended, guarding, mass, organolmegaly, rebound, tenderness Rectal exam: PRESENT: deferred Neurological exam: PRESENT: alert, awake, oriented to person, oriented to place, oriented to time, oriented to situation, CN II-XII grossly intact. ABSENT: motor sensory deficit Psychiatric exam: PRESENT: appropriate affect, normal mood. ABSENT: homicidal ideation, suicidal ideation Skin exam: PRESENT: dry, intact, warm. ABSENT: cyanosis, rash Results Laboratory Results: 08/15/19 04:52 08/13/19 23:35 Assessment & Plan - Diagnosis (1) COPD with exacerbation Is this a current diagnosis for this admission?: Yes (2) Anemia requiring transfusions Is this a current diagnosis for this admission?: Yes (3) CAD (coronary artery disease) Qualifiers: Coronary Disease-Associated Artery/Lesion type: [place] artery [place] vs. transplanted heart: [place] heart Associated angina: without angina Qualified Code(s): I25.10 - Atherosclerotic heart disease of [place] coronary artery without angina pectoris Is this a current diagnosis for this admission?: Yes (4) Chronic atrial fibrillation Is this a current diagnosis for this admission?: Yes (5) Congestive heart failure (CHF) Qualifiers: Qualified Code(s): I50.32 - Chronic diastolic (congestive) heart failure Is this a current diagnosis for this admission?: Yes (6) HTN (hypertension) Qualifiers: Hypertension type: essential hypertension Qualified Code(s): I10 - Essential (primary) hypertension Is this a current diagnosis for this admission?: Yes - Time Time Spent with patient: 15-24 minutes Level of Care: IMCU Medications reviewed and adjusted accordingly: Yes Anticipated discharge: Home Within: Other - Plan Summary Plan Summary: Continues to IV antibiotic Aspirations precaution We will get the speech therapy evaluations Continues to nebulizer treatment We will get the chest x-ray and ABG
[2019-08-16 10:52] LABS: ARTERIAL BLOOD BASE EXCESS -1.1 mmol/L; ARTERIAL BLOOD FIO2 32%; ARTERIAL BLOOD H2CO3 2.16 mmol/L (1.05-1.35); ARTERIAL BLOOD HCO3 28.3 mmol/L (20-24); ARTERIAL BLOOD O2 SATURATION 87.8 % (94-98); ARTERIAL BLOOD PH 7.21 (7.35-7.45); ARTERIAL BLOOD PO2 65.4 mmHg (80-100); ARTERIAL BLOOD TOTAL CO2 30.5 mmol/L (21-25)
[2019-08-16 10:54] LABS: ARTERIAL BLOOD PCO2 71.8 mmHg (35-45)
--- NOTE | 2019-08-16 11:02 | RADIOLOGY REPORT (SQ) ---
EXAM DESCRIPTION: CHEST SINGLE VIEW COMPLETED DATE/TIME: 08/16/2019 10:40 am REASON FOR STUDY: copd COMPARISON: 08/14/2019 EXAM PARAMETERS: NUMBER OF VIEWS: One view. TECHNIQUE: Single frontal radiographic view of the chest acquired. RADIATION DOSE: NA LIMITATIONS: None. FINDINGS: LUNGS AND PLEURA: Parenchymal opacities in both lungs. Minimal improvement. Bilateral pl eural effusions increased. MEDIASTINUM AND HILAR STRUCTURES: No masses. Contour normal. HEART AND VASCULAR STRUCTURES: Heart enlarged. Vascular congestion. BONES: No acute findings. HARDWARE: None in the chest. OTHER: No other significant finding. IMPRESSION: Increasing vascular congestion and pleural effusions. Slight clearing in the parenchyma l opacities. TECHNICAL DOCUMENTATION: JOB ID: [id number] [employer]- All Rights Reserved Reading location - IP/workstation name: [email or web address]
[2019-08-16] MEDS: DEXTROSE 5%-NORMAL SALINE 1,000 ML IV PRN ×2 (12:58→22:48)
[2019-08-16] MEDS: IPRATROPIUM/ALBUTEROL 0.5-2.5 MG/3 ML AMPUL NEB PRN (20:30)
[2019-08-16] MEDS: ATORVASTATIN CALCIUM 40 MG TABLET PO SCH (21:47)
[2019-08-16] MEDS: GUAIFENESIN SYRP 200 MG/10 ML UDC PO PRN (21:47)
[2019-08-16] MEDS: OXYCODONE-ACETAMINOPHEN 5-325 MG TABLET PO PRN (21:48)
[2019-08-16] MEDS: MELATONIN 3 MG TABLET PO SCH (21:49)
[2019-08-16] MEDS: OXYCODONE HCL IR 5 MG TABLET PO PRN (21:49)
[2019-08-16] MEDS: LATANOPROST 0.005% OPH SOLN 2.5 ML OU SCH (21:51)
[2019-08-16] MEDS: WARFARIN SODIUM 3 MG TABLET PO SCH (21:53)
[2019-08-17] MEDS: IPRATROPIUM/ALBUTEROL 0.5-2.5 MG/3 ML AMPUL NEB PRN (00:30)
[2019-08-17] MEDS: PIPERACILLIN SODIUM/TAZOBACTAM 3.375 GM in NORMAL SALINE 100 ML IV SCH ×3 (01:33→18:17)
[2019-08-17 04:35] LABS: ABSOLUTE EOSINOPHILS # (AUTO) 0.2 10^3/uL (0.0-0.6); ABSOLUTE LYMPHOCYTES (AUTO) 0.8 10^3/uL (0.5-4.7); ABSOLUTE MONOCYTES (AUTO) 1.1 10^3/uL (0.1-1.4); ABSOLUTE NEUT (AUTO) 11.2 10^3/uL (1.7-8.2); BASOPHILS % (AUTO) 0.3 % (0-2); EOSINOPHILS % (AUTO) 1.6 % (0-6); HEMATOCRIT 35.3 % (36.0-47.0); HEMOGLOBIN 10.8 g/dL (12.0-15.5); LYMPHOCYTES % (AUTO) 5.9 % (13-45); MEAN CORPUSCULAR HGB CONC 30.7 g/dL (32.0-36.0); MEAN CORPUSCULAR VOLUME 91 fl (80-97); MONOCYTES % (AUTO) 8.4 % (3-13); PLATELET COUNT 255 10^3/uL (150-450); RED BLOOD COUNT 3.88 10^6/uL (3.72-5.28); RED CELL DISTRIBUTION WIDTH 22.9 % (11.5-14.0); SEGMENTED NEUTROPHILS % (AUTO) 83.8 % (42-78); TOTAL CELLS COUNTED % (AUTO) 100 %; WHITE BLOOD COUNT 13.4 10^3/uL (4.0-10.5)
[2019-08-17 04:59] LABS: ANION GAP 7 (5-19); BLOOD UREA NITROGEN 14 mg/dL (7-20); CALCIUM 8.9 mg/dL (8.4-10.2); CARBON DIOXIDE 26 mmol/L (22-30); CHLORIDE 112 mmol/L (98-107); GLUCOSE 170 mg/dL (75-110); POTASSIUM 3.5 mmol/L (3.6-5.0)
[2019-08-17] MEDS: TIZANIDINE HCL 4 MG TABLET PO SCH ×2 (05:30→14:41)
[2019-08-17] MEDS: PANTOPRAZOLE SODIUM 40 MG TABLET.DR PO SCH (05:30)
[2019-08-17] MEDS: CITALOPRAM HYDROBROMIDE 20 MG TABLET PO SCH (09:33)
[2019-08-17] MEDS: DOCUSATE SODIUM 100 MG CAPSULE PO SCH (09:33)
[2019-08-17] MEDS: MULTIVITAMIN TABLET PO SCH (09:33)
[2019-08-17] MEDS: DILTIAZEM HCL 120 MG CAP.SR.24H PO SCH (09:33)
[2019-08-17] MEDS: CALCIUM CARBONATE 250 MG/VITAMIN D3 125 UNIT TABLET PO SCH (09:34)
[2019-08-17] MEDS: METOPROLOL SUCCINATE 25 MG TAB.SR.24H PO SCH (09:34)
[2019-08-17] MEDS: VALSARTAN 40 MG TABLET PO SCH (09:34)
--- NOTE | 2019-08-17 09:36 | PDOC PROGRESS REPORT ---
Subjective Progress Note for:: 08/17/19 Subjective:: Patient seen use the BiPAP last night Patient is feeling much better this morning More alert awake Patient to still coughing Denied any chest pain no short of breath Reason For Visit: ACUTE EXACERBATION OF COPD ANEMIA WITH NEED FOR Physical Exam Vital Signs: Temp Pulse Resp BP Pulse Ox 97.4 F 83 17 133/51 H 99 08/17/19 07:26 08/17/19 07:26 08/17/19 09:10 08/17/19 07:26 08/17/19 09:10 Intake & Output 08/16/19 08/17/19 08/18/19 06:59 06:59 06:59 Intake Total 2503 2816 Output Total 0 0 Balance 2503 2816 Weight 40.7 kg 43.7 kg General appearance: PRESENT: no acute distress, well-developed, well-nourished Head exam: PRESENT: atraumatic, normocephalic Eye exam: PRESENT: conjunctiva pink, EOMI, PERRLA. ABSENT: scleral icterus Ear exam: PRESENT: normal external ear exam Mouth exam: PRESENT: moist, tongue midline Neck exam: PRESENT: full ROM. ABSENT: carotid bruit, JVD, lymphadenopathy, thyromegaly Respiratory exam: PRESENT: decreased breath sounds Cardiovascular exam: PRESENT: RRR. ABSENT: diastolic murmur, rubs, systolic murmur Pulses: PRESENT: normal dorsalis pedis pul, +2 pedal pulses bilateral Vascular exam: PRESENT: normal capillary refill GI/Abdominal exam: PRESENT: normal bowel sounds, soft. ABSENT: distended, guarding, mass, organolmegaly, rebound, tenderness Rectal exam: PRESENT: deferred Neurological exam: PRESENT: alert, awake, oriented to person, oriented to place, oriented to time, oriented to situation, CN II-XII grossly intact. ABSENT: motor sensory deficit Psychiatric exam: PRESENT: appropriate affect, normal mood. ABSENT: homicidal ideation, suicidal ideation Skin exam: PRESENT: dry, intact, warm. ABSENT: cyanosis, rash Results Laboratory Results: 08/17/19 04:10 08/17/19 04:10 08/16/19 08/17/19 08/17/19 10:18 04:10 04:10 WBC 13.4 H RBC 3.88 Hgb 10.8 L Hct 35.3 L MCV 91 MCH 28.0 MCHC 30.7 L RDW 22.9 H Plt Count 255 Seg Neutrophils % 83.8 H Carbonic Acid 2.16 H HCO3/H2CO3 Ratio 13:1 ABG pH 7.21 L ABG pCO2 71.8 H* ABG pO2 65.4 L ABG HCO3 28.3 H ABG O2 Saturation 87.8 L ABG Base Excess -1.1 FiO2 32% Sodium 145.1 H Potassium 3.5 L Chloride 112 H Carbon Dioxide 26 Anion Gap 7 BUN 14 Creatinine 0.82 Est GFR ( Amer) > 60 Glucose 170 H Calcium 8.9 Impressions: Chest X-Ray 08/16/19 00:00 IMPRESSION: Increasing vascular congestion and pleural effusions. Slight clearing in the parenchymal opacities. Assessment & Plan - Diagnosis (1) COPD with exacerbation Is this a current diagnosis for this admission?: Yes Plan: Continues nebulizer treatment (2) Anemia requiring transfusions Is this a current diagnosis for this admission?: Yes Plan: Currently all stable (3) CAD (coronary artery disease) Qualifiers: Coronary Disease-Associated Artery/Lesion type: [place] artery [place] vs. transplanted heart: [place] heart Associated angina: without angina Qualified Code(s): I25.10 - Atherosclerotic heart disease of [place] coronary artery without angina pectoris Is this a current diagnosis for this admission?: Yes (4) Chronic atrial fibrillation Is this a current diagnosis for this admission?: Yes (5) Congestive heart failure (CHF) Qualifiers: Qualified Code(s): I50.32 - Chronic diastolic (congestive) heart failure Is this a current diagnosis for this admission?: Yes (6) HTN (hypertension) Qualifiers: Hypertension type: essential hypertension Qualified Code(s): I10 - Essential (primary) hypertension Is this a current diagnosis for this admission?: Yes (7) Pneumonia Qualifiers: Pneumonia type: due to unspecified organism Is this a current diagnosis for this admission?: Yes Plan: Continues to antibiotics Aspirations precautions We will get the modified barium swallow and speech therapy evaluations (8) Acute and chronic respiratory failure ([id number]) Qualifiers: Respiratory failure complication: hypercapnia Qualified Code(s): J96.22 - Acute and chronic respiratory failure with hypercapnia Is this a current diagnosis for this admission?: Yes Plan: The BiPAP - Time Time Spent with patient: 15-24 minutes Level of Care: IMCU Medications reviewed and adjusted accordingly: Yes Anticipated discharge: Home Within: Other - Plan Summary Plan Summary: Continues to BiPAP Repeat the ABG repeat the blood work
[2019-08-17] MEDS: FLUTICASONE/VILANTEROL 200-25 MCG/DOSE IH SCH (09:38)
[2019-08-17] MEDS: UMECLIDINIUM BROMIDE 62.5 MCG/DOSE IH SCH (09:38)
[2019-08-17] MEDS: MUPIROCIN 2% OINTMENT 22 GM TP SCH ×3 (09:39→18:18)
[2019-08-17] MEDS: DEXTROSE 5%-NORMAL SALINE 1,000 ML IV PRN ×2 (09:47→21:51)
[2019-08-17] MEDS: POTASSIUM CHLORIDE 20 MEQ PACKET PO SCH (10:23)
[2019-08-17] MEDS ORDERED: PROPOFOL 1,000 MG/100 ML INFUS..BTL IV ONE (16:39)
[2019-08-17] MEDS ORDERED: ETOMIDATE INJ/PF 20 MG/10 ML SDV IV ONE (16:41)
[2019-08-17] MEDS: PROPOFOL 1,000 MG/100 ML INFUS..BTL IV PRN (16:50)
[2019-08-17 16:54] LABS: ARTERIAL BLOOD BASE EXCESS -3.1 mmol/L; ARTERIAL BLOOD H2CO3 3.46 mmol/L (1.05-1.35); ARTERIAL BLOOD HCO3 30.3 mmol/L (20-24); ARTERIAL BLOOD O2 SATURATION 93.5 % (94-98); ARTERIAL BLOOD PO2 99.6 mmHg (80-100); ARTERIAL BLOOD TOTAL CO2 33.8 mmol/L (21-25)
[2019-08-17 16:56] LABS: ARTERIAL BLOOD PCO2 114.8 mmHg (35-45); ARTERIAL BLOOD PH 7.04 (7.35-7.45)
[2019-08-17 16:57] LABS: ARTERIAL BLOOD FIO2 65%
[2019-08-17 17:19] LABS: INTERNATIONAL RATION (INR) 1.92; PROTHROMBIN TIME 22.2 SEC (11.4-15.4)
--- NOTE | 2019-08-17 17:28 | RADIOLOGY REPORT (SQ) ---
EXAM DESCRIPTION: CHEST SINGLE VIEW COMPLETED DATE/TIME: 08/17/2019 5:19 pm REASON FOR STUDY: change in mental status COMPARISON: 08/16/2019 EXAM PARAMETERS: NUMBER OF VIEWS: One view TECHNIQUE: Single frontal radiograph of the chest. RADIATION DOSE: N/A LIMITATIONS: None. FINDINGS: TEMPORARY SUPPORT DEVICES:ETT in expected location. NG tube courses below the fredrick-diaphr agm in to the stomach. LUNGS AND PLEURA: Parenchymal opacities throughout both lungs slightly increased. Effusions are stabl e. No masses. No pneumothorax. MEDIASTINUM AND HILAR STRUCTURES: No masses. Contour normal. HEART AND VASCULAR STRUCTURES: Heart enlarged. Vascular congestion. Aorta normal for age. BONES: No acute findings. OTHER: No other significant finding. IMPRESSION: Increasing opacities in the lungs. Stable effusions. Increasing vascular congestion. SUPPORT DEVICE(S) IN EXPECTED LOCATIONS. TECHNICAL DOCUMENTATION: JOB ID: [id number] [employer]- All Rights Reserved Reading location - IP/workstation name: [email or web address]
--- NOTE | 2019-08-17 17:44 | PDOC PROGRESS REPORT ---
Subjective Progress Note for:: 08/17/19 Subjective:: She both hypercarbic and sedated. Reason For Visit: ACUTE EXACERBATION OF COPD ANEMIA WITH NEED FOR Physical Exam Vital Signs: Temp Pulse Resp BP Pulse Ox 97.9 F 109 H 19 127/94 H 88 L 08/17/19 15:37 08/17/19 15:37 08/17/19 15:37 08/17/19 15:37 08/17/19 15:37 Intake & Output 08/16/19 08/17/19 08/18/19 06:59 06:59 06:59 Intake Total 2503 2816 1460 Output Total 0 0 Balance 2503 2816 1460 Weight 40.7 kg 43.7 kg General appearance: PRESENT: disheveled, mild distress, thin Head exam: PRESENT: atraumatic, normocephalic Additional Comments: Emaciated. Eye exam: PRESENT: conjunctiva pink, EOMI, PERRLA. ABSENT: scleral icterus Ear exam: PRESENT: normal external ear exam Mouth exam: PRESENT: moist, tongue midline Teeth exam: PRESENT: dental caries, edentulous - Upper andmissing many teeth in lower. Additional comments: Bilateral scars that look like endarterectomy. Respiratory exam: PRESENT: crackles - At R base., decreased breath sounds, rhonchi Cardiovascular exam: PRESENT: irregular rhythm, tachycardia Vascular exam: PRESENT: normal capillary refill GI/Abdominal exam: PRESENT: normal bowel sounds, soft. ABSENT: distended, guarding, mass, organolmegaly, rebound, tenderness Rectal exam: PRESENT: deferred Extremities exam: PRESENT: full ROM Musculoskeletal exam: PRESENT: full ROM Neurological exam: PRESENT: altered Skin exam: PRESENT: normal color Results Laboratory Results: 08/17/19 04:10 08/17/19 04:10 08/17/19 08/17/19 08/17/19 04:10 04:10 16:20 WBC 13.4 H RBC 3.88 Hgb 10.8 L Hct 35.3 L MCV 91 MCH 28.0 MCHC 30.7 L RDW 22.9 H Plt Count 255 Seg Neutrophils % 83.8 H Carbonic Acid 3.46 H HCO3/H2CO3 Ratio 8:1 ABG pH 7.04 L* ABG pCO2 114.8 H* ABG pO2 99.6 ABG HCO3 30.3 H ABG O2 Saturation 93.5 L ABG Base Excess -3.1 FiO2 65% Sodium 145.1 H Potassium 3.5 L Chloride 112 H Carbon Dioxide 26 Anion Gap 7 BUN 14 Creatinine 0.82 Est GFR ( Amer) > 60 Glucose 170 H Calcium 8.9 Impressions: Chest X-Ray 08/17/19 00:00 IMPRESSION: Increasing opacities in the lungs. Stable effusions. Increasing vascular congestion. SUPPORT DEVICE(S) IN EXPECTED LOCATIONS. Assessment & Plan - Diagnosis (1) Anemia requiring transfusions Is this a current diagnosis for this admission?: Yes Plan: PT 2.73 and no obvious bleeding. Transfused 1 unit PRBCs and Hgb stable since. (2) Acute and chronic respiratory failure ([id number]) Qualifiers: Respiratory failure complication: hypercapnia Qualified Code(s): J96.22 - Acute and chronic respiratory failure with hypercapnia Is this a current diagnosis for this admission?: Yes Plan: Pt has what appears to be CAP of RLL. However given her mental staus this ce rtainly could be an aspiration. Will keep on Zosyn. Much secretions and need for suctioning. Mucous plugging is likely reason for acute hypercarbis of > 100 and pH 7.04. (3) Atrial fibrillation Qualifiers: Atrial fibrillation type: unspecified Qualified Code(s): I48.91 - Unspecified atrial fibrillation Is this a current diagnosis for this admission?: Yes Plan: Tachycardic due to respratory status. INR 2.73. Hold coumadin. (4) CAD (coronary artery disease) Qualifiers: Coronary Disease-Associated Artery/Lesion type: [place] artery [place] vs. transplanted heart: [place] heart Associated angina: without angina Qualified Code(s): I25.10 - Atherosclerotic heart disease of [place] coronary artery without angina pectoris Is this a current diagnosis for this admission?: Yes Plan: Stable, inactive. (5) CO2 narcosis Is this a current diagnosis for this admission?: Yes Plan: Acute and due to mucus plugging. (6) COPD (chronic obstructive pulmonary disease) Qualifiers: COPD type: unspecified COPD Qualified Code(s): J44.9 - Chronic obstructive pulmonary disease, unspecified Is this a current diagnosis for this admission?: Yes Plan: No wheezing so steroids not indicated. (7) Warfarin-induced coagulopathy Is this a current diagnosis for this admission?: Yes Plan: Restart Coumadin probably tomorrow. - Time Time Spent with patient: 35 or more minutes Total Critical Time (Minutes): 45 Level of Care: ICU Medications reviewed and adjusted accordingly: Yes Anticipated discharge: SNF Within: Other - Inpatient Certification Based on my medical assessment, after consideration of the patient's comorbidities, presenting symptoms, or acuity I expect that the services needed warrant INPATIENT care.: Yes I certify that my determination is in accordance with my understanding of Medicare's requirements for reasonable and necessary INPATIENT services [42 CFR 412.3e].: Yes Medical Necessity: Failure to Improve With Outpatient Therapy, Significant Comorbidiites Make Outpatient Treatment Too Risky, Need Close Monitoring Due to Risk of Patient Decompensation, Need For Continuous Telemetry Monitoring, Need for Nebulizer Therapy and Monitoring of Response
--- NOTE | 2019-08-17 17:46 | Progress Note ---
Provider Note Provider Note: Patient intubated easily with #7 ETT with etomidate for sedation. Propofol for further sedation. Total critical care time 30 minutes.
[2019-08-17] MEDS ORDERED: NORMAL SALINE 1000 ML 1,000 ML IV PRN (18:20)
[2019-08-17 18:39] LABS: ARTERIAL BLOOD BASE EXCESS -2.2 mmol/L; ARTERIAL BLOOD H2CO3 2.04 mmol/L (1.05-1.35); ARTERIAL BLOOD HCO3 26.7 mmol/L (20-24); ARTERIAL BLOOD O2 SATURATION 97.2 % (94-98); ARTERIAL BLOOD PCO2 67.9 mmHg (35-45); ARTERIAL BLOOD PH 7.21 (7.35-7.45); ARTERIAL BLOOD PO2 115.3 mmHg (80-100); ARTERIAL BLOOD TOTAL CO2 28.8 mmol/L (21-25)
[2019-08-17 18:40] LABS: ARTERIAL BLOOD FIO2 60%
[2019-08-17] MEDS ORDERED: POTASSIUM CHLORIDE 10 MEQ TABLET.ER PO ONE (19:43)
[2019-08-17] MEDS: WARFARIN SODIUM 3 MG TABLET PO SCH (21:48)
[2019-08-17] MEDS: LATANOPROST 0.005% OPH SOLN 2.5 ML OU SCH (21:48)
[2019-08-17] MEDS: ATORVASTATIN CALCIUM 40 MG TABLET PO SCH (21:48)
[2019-08-17] MEDS: OXYCODONE-ACETAMINOPHEN 5-325 MG TABLET PO PRN (22:56)
[2019-08-17] MEDS: OXYCODONE HCL IR 5 MG TABLET PO PRN (22:57)
--- NOTE | 2019-08-17 23:16 | EKG REPORT ---
SEVERITY:- ABNORMAL ECG - ATRIAL FIBRILLATION LEFT AXIS DEVIATION PROBABLE ANTEROSEPTAL INFARCT, AGE INDETERM BORDERLINE T ABNORMALITIES, INFERIOR LEADS VPCs : Confirmed by: Farnaz Aceves 17-Aug-2019 23:16:04
[2019-08-18] MEDS: PROPOFOL 1,000 MG/100 ML INFUS..BTL IV PRN ×3 (00:11→17:34)
[2019-08-18] MEDS: PIPERACILLIN SODIUM/TAZOBACTAM 3.375 GM in NORMAL SALINE 100 ML IV SCH ×3 (01:30→17:35)
[2019-08-18] MEDS: PANTOPRAZOLE SODIUM 40 MG TABLET.DR PO SCH (05:29)
[2019-08-18] MEDS: DEXTROSE 5%-NORMAL SALINE 1,000 ML IV PRN (05:29)
[2019-08-18 06:37] LABS: INTERNATIONAL RATION (INR) 2.47; PROTHROMBIN TIME 27.2 SEC (11.4-15.4)
[2019-08-18 06:44] LABS: BLOOD UREA NITROGEN 12 mg/dL (7-20); CALCIUM 8.1 mg/dL (8.4-10.2); CARBON DIOXIDE 26 mmol/L (22-30); CHLORIDE 116 mmol/L (98-107); GLUCOSE 150 mg/dL (75-110); POTASSIUM 3.6 mmol/L (3.6-5.0)
[2019-08-18 06:53] LABS: ANION GAP 1 (5-19)
[2019-08-18] MEDS: IPRATROPIUM/ALBUTEROL 0.5-2.5 MG/3 ML AMPUL NEB PRN (07:41)
[2019-08-18 07:49] LABS: HEMATOCRIT 34.5 % (36.0-47.0); HEMOGLOBIN 10.7 g/dL (12.0-15.5); MEAN CORPUSCULAR HEMOGLOBIN 28.2 pg (27.0-33.4); MEAN CORPUSCULAR HGB CONC 31.1 g/dL (32.0-36.0); MEAN CORPUSCULAR VOLUME 91 fl (80-97); PLATELET COUNT 224 10^3/uL (150-450); RED BLOOD COUNT 3.81 10^6/uL (3.72-5.28); RED CELL DISTRIBUTION WIDTH 23.2 % (11.5-14.0); WHITE BLOOD COUNT 12.4 10^3/uL (4.0-10.5)
[2019-08-18] MEDS ORDERED: ACETAZOLAMIDE 500 MG CAPSULE.SA PO SCH (10:00)
[2019-08-18] MEDS: UMECLIDINIUM BROMIDE 62.5 MCG/DOSE IH SCH (10:39)
[2019-08-18] MEDS: FLUTICASONE/VILANTEROL 200-25 MCG/DOSE IH SCH (10:40)
[2019-08-18] MEDS: DILTIAZEM HCL 120 MG CAP.SR.24H PO SCH (11:17)
[2019-08-18] MEDS: MULTIVITAMIN TABLET PO SCH (11:18)
[2019-08-18] MEDS: DOCUSATE SODIUM 100 MG CAPSULE PO SCH (11:18)
[2019-08-18] MEDS: VENLAFAXINE HCL 75 MG TABLET PO SCH (11:19)
[2019-08-18] MEDS: METOPROLOL SUCCINATE 25 MG TAB.SR.24H PO SCH (11:19)
[2019-08-18] MEDS: POTASSIUM CHLORIDE 20 MEQ PACKET PO SCH (11:19)
[2019-08-18] MEDS: CALCIUM CARBONATE 250 MG/VITAMIN D3 125 UNIT TABLET PO SCH (11:20)
[2019-08-18] MEDS: CITALOPRAM HYDROBROMIDE 20 MG TABLET PO SCH (11:20)
[2019-08-18] MEDS: OXYCODONE-ACETAMINOPHEN 5-325 MG TABLET PO PRN (11:28)
[2019-08-18] MEDS: OXYCODONE HCL IR 5 MG TABLET PO PRN (11:28)
[2019-08-18] MEDS: MUPIROCIN 2% OINTMENT 22 GM TP SCH ×3 (11:29→17:34)
[2019-08-18] MEDS: VALSARTAN 40 MG TABLET PO SCH (11:29)
[2019-08-18] MEDS ORDERED: DILTIAZEM HCL 30 MG TABLET PO ONE (12:45)
[2019-08-18] MEDS ORDERED: METOPROLOL TARTRATE PF/INJ 5 MG/5 ML SDV IV ONE (12:45)
[2019-08-18] MEDS: AZITHROMYCIN 500 MG in DEXTROSE 5%-WATER 250 ML IV SCH (14:26)
[2019-08-18] MEDS: GABAPENTIN 300 MG CAPSULE PO SCH ×2 (14:26→21:47)
[2019-08-18 16:48] LABS: ARTERIAL BLOOD BASE EXCESS -1.5 mmol/L; ARTERIAL BLOOD FIO2 30%; ARTERIAL BLOOD H2CO3 1.56 mmol/L (1.05-1.35); ARTERIAL BLOOD HCO3 25.3 mmol/L (20-24); ARTERIAL BLOOD O2 SATURATION 92.9 % (94-98); ARTERIAL BLOOD PCO2 51.9 mmHg (35-45); ARTERIAL BLOOD PH 7.31 (7.35-7.45); ARTERIAL BLOOD PO2 72.2 mmHg (80-100); ARTERIAL BLOOD TOTAL CO2 26.8 mmol/L (21-25)
[2019-08-18] MEDS: DILTIAZEM HCL 30 MG TABLET PO SCH ×2 (17:45→23:19)
--- NOTE | 2019-08-18 19:05 | PDOC PROGRESS REPORT ---
Subjective Progress Note for:: 08/18/19 Subjective:: Admitted to ICU for [id number] respiratory failure. Intubated without difficulty. Has had ongoing anemia without any active bleeding. Reason For Visit: ACUTE EXACERBATION OF COPD ANEMIA WITH NEED FOR Physical Exam Vital Signs: Temp Pulse Resp BP Pulse Ox 98.4 F 89 16 154/69 H 100 08/18/19 08:00 08/18/19 08:00 08/18/19 08:00 08/18/19 08:00 08/18/19 08:00 Intake & Output 08/17/19 08/18/19 08/19/19 06:59 06:59 06:59 Intake Total 2816 4213 40 Output Total 0 290 50 Balance 2816 3923 -10 Weight 43.7 kg 46.9 kg Physical Exam: Intubated, chronically and critically ill appearing, NAD, sedated General appearance: PRESENT: no acute distress, disheveled, thin Head exam: PRESENT: atraumatic, normocephalic Eye exam: PRESENT: conjunctival injection, conjunctiva pink, PERRLA. ABSENT: nystagmus, scleral icterus Mouth exam: PRESENT: dry mucosa, neck supple Teeth exam: PRESENT: edentulous Neck exam: ABSENT: carotid bruit, JVD, tenderness, thyromegaly, tracheal deviation, tracheostomy Respiratory exam: PRESENT: prolonged expiratory phas. ABSENT: accessory muscle use, clear to auscultation leslie, retraction, rhonchi, tachypnea Cardiovascular exam: PRESENT: irregular rhythm, +S1, +S2, tachycardia. ABSENT: systolic murmur Pulses: PRESENT: +1 pedal pulses bilateral Vascular exam: PRESENT: normal capillary refill. ABSENT: pallor GI/Abdominal exam: PRESENT: hypoactive bowel sounds, soft. ABSENT: ascites, distended, firm, guarding, mass, Espinosa's sign, rebound, rigid, tenderness Rectal exam: PRESENT: deferred Gentrourinary exam: PRESENT: indwelling catheter Extremities exam: ABSENT: joint swelling, pedal edema Musculoskeletal exam: PRESENT: normal inspection. ABSENT: deformity, dislocation Neurological exam: PRESENT: altered Skin exam: PRESENT: intact, normal color. ABSENT: abrasion, cyanosis, erythema, jaundice, mottled, petechiae, urticaria Results Laboratory Results: 08/18/19 07:23 08/18/19 06:20 08/17/19 08/17/19 08/18/19 16:20 18:30 06:20 WBC RBC Hgb Hct MCV MCH MCHC RDW Plt Count Carbonic Acid 3.46 H 2.04 H HCO3/H2CO3 Ratio 8:1 13:1 ABG pH 7.04 L* 7.21 L ABG pCO2 114.8 H* 67.9 H ABG pO2 99.6 115.3 H ABG HCO3 30.3 H 26.7 H ABG O2 Saturation 93.5 L 97.2 ABG Base Excess -3.1 -2.2 FiO2 65% 60% Sodium 143.3 Potassium 3.6 Chloride 116 H Carbon Dioxide 26 Anion Gap 1 L BUN 12 Creatinine 0.75 Est GFR ( Amer) > 60 Glucose 150 H Calcium 8.1 L 08/18/19 08/18/19 06:20 07:23 WBC Cancelled 12.4 H RBC Cancelled 3.81 Hgb Cancelled 10.7 L Hct Cancelled 34.5 L MCV Cancelled 91 MCH Cancelled 28.2 MCHC Cancelled 31.1 L RDW Cancelled 23.2 H Plt Count Cancelled 224 Carbonic Acid HCO3/H2CO3 Ratio ABG pH ABG pCO2 ABG pO2 ABG HCO3 ABG O2 Saturation ABG Base Excess FiO2 Sodium Potassium Chloride Carbon Dioxide Anion Gap BUN Creatinine Est GFR ( Amer) Glucose Calcium Impressions: Chest X-Ray 08/17/19 00:00 IMPRESSION: Increasing opacities in the lungs. Stable effusions. Increasing vascular congestion. SUPPORT DEVICE(S) IN EXPECTED LOCATIONS. Status: Image reviewed by mt Assessment & Plan - Diagnosis (1) KIAN (acute kidney injury) Is this a current diagnosis for this admission?: Yes (2) Acute and chronic respiratory failure ([id number]) Qualifiers: Respiratory failure complication: hypercapnia Qualified Code(s): J96.22 - Acute and chronic respiratory failure with hypercapnia Is this a current diagnosis for this admission?: Yes (3) Acute renal injury due to hypovolemia Is this a current diagnosis for this admission?: Yes (4) Atrial fibrillation Qualifiers: Atrial fibrillation type: longstanding persistent Qualified Code(s): I48.11 - Longstanding persistent atrial fibrillation Is this a current diagnosis for this admission?: Yes (5) Anemia Qualifiers: Anemia type: unspecified type Qualified Code(s): D64.9 - Anemia, unspecified Is this a current diagnosis for this admission?: Yes (6) Streptococcus pneumoniae pneumonia Qualifiers: Laterality: bilateral Lung location: unspecified part of lung Qualified Code(s): J13 - Pneumonia due to Streptococcus pneumoniae Is this a current diagnosis for this admission?: Yes (7) Haemophilus influenzae pneumonia Qualifiers: Laterality: bilateral Lung location: unspecified part of lung Qualified Code(s): J14 - Pneumonia due to Hemophilus influenzae Is this a current diagnosis for this admission?: Yes - Time Time Spent with patient: 35 or more minutes Total Critical Time (Minutes): 52 Level of Care: ICU Medications reviewed and adjusted accordingly: Yes Anticipated discharge: Acute Rehab Within: within 48 hours - Inpatient Certification Based on my medical assessment, after consideration of the patient's comorbiditi es, presenting symptoms, or acuity I expect that the services needed warrant INPATIENT care.: Yes I certify that my determination is in accordance with my understanding of [facility]'s requirements for reasonable and necessary INPATIENT services [42 CFR 412.3e].: Yes Medical Necessity: Significant Comorbidiites Make Outpatient Treatment Too Risky, Need Close Monitoring Due to Risk of Patient Decompensation, Need for Nebulizer Therapy and Monitoring of Response, Risk of Complication if Not Cared For in Hospital, Risk of Diagnosis Which Will Require Inpatient Eval/Care/Monitoring - Plan Summary Plan Summary: 08.18.2019 Patient will be weaned off mechanical ventilation. Steroids have been adjusted. She does not wean we will start tube feeds. Check echocardiogram for pulmonary hypertension. Continue supportive care. For atrial fibrillation which is a known complication of significant pulmonary disease. Respiratory cultures positive for Haemophilus influenza and strep pneumoniae I have started the patient on azithromycin today prior to the culture data. ABG has significantly improved but she is not quite suitable for liberation from the ventilator. Started enteral calcium channel fadumo and increase metoprolol to 25 twice daily for her atrial fibrillation. Continue the warfarin however will need to be aware of any bleeding. She has had a low hemoglobin but no active bleeding. Her atrial fibrillation requires anticoagulation. We will have low threshold for conversion to heparin. Being said given her degree of COPD her anemia is significant and would expect a higher hemoglobin. Screening for hemolytic and destructive processes. The care of the patient is a dynamic an ongoing process throughout the ICU. Events of the day are captured in a one-time note format in an attempt to describe the last 24 hours. Orders done or given are not always reflected by the timing of the placement in the chart. This patient requires critical care secondary to: Acute respiratory failure and the use of mechanical ventilation. Medical power of estate attorney is her daughter and sister. Both were updated at bedside
[2019-08-18] MEDS: WARFARIN SODIUM 3 MG TABLET PO SCH (21:47)
[2019-08-18] MEDS: FAMOTIDINE 20 MG TABLET PO SCH (21:47)
[2019-08-18] MEDS: ATORVASTATIN CALCIUM 40 MG TABLET PO SCH (21:48)
[2019-08-18] MEDS: LATANOPROST 0.005% OPH SOLN 2.5 ML OU SCH (21:49)
[2019-08-18] MEDS: METOPROLOL TARTRATE 25 MG TABLET PO SCH (22:00)
[2019-08-19] MEDS: PIPERACILLIN SODIUM/TAZOBACTAM 3.375 GM in NORMAL SALINE 100 ML IV SCH ×3 (02:37→18:21)
[2019-08-19] MEDS: PROPOFOL 1,000 MG/100 ML INFUS..BTL IV PRN ×2 (03:27→15:52)
[2019-08-19 04:53] LABS: INTERNATIONAL RATION (INR) 3.01; PROTHROMBIN TIME 31.9 SEC (11.4-15.4)
[2019-08-19 04:56] LABS: ABSOLUTE BASOPHILS # (AUTO) 0.1 10^3/uL (0.0-0.2); ABSOLUTE EOSINOPHILS # (AUTO) 0.3 10^3/uL (0.0-0.6); ABSOLUTE MONOCYTES (AUTO) 0.7 10^3/uL (0.1-1.4); ABSOLUTE NEUT (AUTO) 9.4 10^3/uL (1.7-8.2); BASOPHILS % (AUTO) 0.7 % (0-2); EOSINOPHILS % (AUTO) 2.6 % (0-6); HEMATOCRIT 35.3 % (36.0-47.0); HEMOGLOBIN 11.1 g/dL (12.0-15.5); LYMPHOCYTES % (AUTO) 8.4 % (13-45); MEAN CORPUSCULAR HGB CONC 31.3 g/dL (32.0-36.0); MEAN CORPUSCULAR VOLUME 89 fl (80-97); MONOCYTES % (AUTO) 6.3 % (3-13); PLATELET COUNT 214 10^3/uL (150-450); RED BLOOD COUNT 3.96 10^6/uL (3.72-5.28); RED CELL DISTRIBUTION WIDTH 23.4 % (11.5-14.0); TOTAL CELLS COUNTED % (AUTO) 100 %; WHITE BLOOD COUNT 11.5 10^3/uL (4.0-10.5)
[2019-08-19 05:07] LABS: ANION GAP 9 (5-19); BLOOD UREA NITROGEN 13 mg/dL (7-20); CARBON DIOXIDE 21 mmol/L (22-30); CHLORIDE 116 mmol/L (98-107); GLUCOSE 98 mg/dL (75-110); PHOSPHORUS 2.5 mg/dL (2.5-4.5); POTASSIUM 4.3 mmol/L (3.6-5.0)
[2019-08-19 05:26] LABS: ARTERIAL BLOOD BASE EXCESS 1.3 mmol/L; ARTERIAL BLOOD H2CO3 1.11 mmol/L (1.05-1.35); ARTERIAL BLOOD HCO3 25.1 mmol/L (20-24); ARTERIAL BLOOD O2 SATURATION 96.4 % (94-98); ARTERIAL BLOOD PCO2 36.9 mmHg (35-45); ARTERIAL BLOOD PH 7.45 (7.35-7.45); ARTERIAL BLOOD PO2 80.5 mmHg (80-100); ARTERIAL BLOOD TOTAL CO2 26.2 mmol/L (21-25)
[2019-08-19 05:30] LABS: ARTERIAL BLOOD FIO2 4
[2019-08-19 05:52] LABS: ANISOCYTOSIS 3+; BURR CELLS SLIGHT; OVALOCYTES 1+; PLATELET COMMENT ADEQUATE; POIKILOCYTOSIS 3+; SCHISTOCYTES SLIGHT; TEAR DROP CELLS 1+; TOXIC GRANULATION 1+
[2019-08-19] MEDS: DILTIAZEM HCL 30 MG TABLET PO SCH ×4 (06:16→23:54)
[2019-08-19] MEDS: GABAPENTIN 300 MG CAPSULE PO SCH ×3 (06:16→21:49)
[2019-08-19] MEDS: IPRATROPIUM/ALBUTEROL 0.5-2.5 MG/3 ML AMPUL NEB PRN ×2 (08:27→21:00)
--- NOTE | 2019-08-19 08:51 | RADIOLOGY REPORT (SQ) ---
EXAM DESCRIPTION: CHEST SINGLE VIEW COMPLETED DATE/TIME: 08/19/2019 7:14 am REASON FOR STUDY: pneumonia COMPARISON: 08/17/2019 FINDINGS: Single-view chest AP portable upright. Lines and tubes over the upper mediastinum are difficult to define. The endotracheal tube may lie cl ose to the orifice of the right main bronchus. This may need to be retracted. NG tube down. Patchy airspace disease appears to be improving compared to study from 2 days ago. Persistent COPD changes and basilar opacities. TECHNICAL DOCUMENTATION: JOB ID: [id number] Reading location - IP/workstation name: [email or web address]
[2019-08-19] MEDS ORDERED: PEG 3350/NA SULF,BICARB,CL/KCL 4000 ML NG ONE (12:00)
[2019-08-19] MEDS: MUPIROCIN 2% OINTMENT 22 GM TP SCH ×3 (13:24→18:22)
[2019-08-19] MEDS: FLUTICASONE/VILANTEROL 200-25 MCG/DOSE IH SCH (13:25)
[2019-08-19] MEDS: VALSARTAN 40 MG TABLET PO SCH (13:26)
[2019-08-19] MEDS: VENLAFAXINE HCL 75 MG TABLET PO SCH (13:26)
[2019-08-19] MEDS: UMECLIDINIUM BROMIDE 62.5 MCG/DOSE IH SCH (13:26)
[2019-08-19] MEDS: DOCUSATE SODIUM 100 MG CAPSULE PO SCH (13:26)
[2019-08-19] MEDS: CITALOPRAM HYDROBROMIDE 20 MG TABLET PO SCH (13:26)
[2019-08-19] MEDS: CALCIUM CARBONATE 250 MG/VITAMIN D3 125 UNIT TABLET PO SCH (13:27)
[2019-08-19] MEDS: METOPROLOL TARTRATE 25 MG TABLET PO SCH ×2 (13:27→21:49)
[2019-08-19] MEDS: FAMOTIDINE 20 MG TABLET PO SCH ×2 (13:27→21:49)
[2019-08-19] MEDS: POTASSIUM CHLORIDE 20 MEQ PACKET PO SCH (13:28)
[2019-08-19] MEDS: MULTIVITAMIN TABLET PO SCH (13:28)
[2019-08-19] MEDS: AZITHROMYCIN 500 MG in DEXTROSE 5%-WATER 250 ML IV SCH (14:05)
--- NOTE | 2019-08-19 15:44 | RADIOLOGY REPORT (SQ) ---
EXAM DESCRIPTION: CAROTID DOPPLER COMPLETED DATE/TIME: 08/19/2019 11:52 am REASON FOR STUDY: Bruit right carotid COMPARISON: 06/02/2013 TECHNIQUE: Grayscale ultrasound, Doppler velocity and spectra, and color Doppler images acquired of the extra-cranial carotid and vertebral arteries. Images stored on PACS. LIMITATIONS: None. FINDINGS: RIGHT CAROTID CCA Velocities: Within normal limits. ICA Velocities Peak systolic 73 cm/s. End diastolic 12 cm/s. Proximal ICA/CCA peak systolic ratio 1.35. Considerable plaque is present in the common carotid, ICA, and ECA. LEFT CAROTID CCA Velocities: Elevated flow velocity of 228 centimeters/second present in distal CCA ICA Velocities Peak systolic 170 cm/s. End diastolic 44 cm/s. Proximal ICA/CCA peak systolic ratio 0.75. Considerable plaque in the common carotid, ICA, and ECA. Elevated flow velocity in the ECA 296 centi meters/second. VERTEBRAL ARTERIES: Antegrade flow. Normal waveforms. SUBCLAVIAN ARTERIES: No finding. OTHER: No other significant finding. IMPRESSION: Extensive atherosclerotic disease bilaterally. By the numbers, 50 to 69% stenosis in th e left CCA and ICA. COMMENT: Quality ID #[id number]: Velocity criteria are extrapolated from the diameter data as defined by t he Society of Radiologists in Ultrasound Consensus Conference. Radiology 2003: 229; 340-346. TECHNICAL DOCUMENTATION: JOB ID: [id number] [employer]- All Rights Reserved Reading location - IP/workstation name: [email or web address]
--- NOTE | 2019-08-19 16:01 | XCELERA REPORT ---
[address] [address] Transthoracic Echocardiogram Report Name: JUNAID VILCHIS Age: 74 yrs Gender: Female : 1945 Patient Status: Inpatient Patient Location: ICU^606^A Study Date: 08/19/2019 11:16 AM Height: 60 in Weight: 103 lb BSA: 1.4 m2 Procedure: A two-dimensional transthoracic echocardiogram with color flow and Doppler was performed. The study was technically limited with all images being suboptimal in quality. Reason For Study: Pulmonary hypertension Ordering Physician: ROSELIA FUNEZ Performed By: Susy Morrow Interpretation Summary The left ventricle is normal in size. There is normal left ventricular wall thickness. LV EF is 65% Left ventricular systolic function is normal. Doppler measurements suggest impaired left ventricular relaxation, which is associated with grade I/IV or mild diastolic dysfunction The left ventricular wall motion is normal. There is no thrombus. Probably no ASD,VSD,Or PFO seen The right ventricle is grossly normal size. The right ventricle is not well visualized secondary to technical limitations The right atrium is normal. The left atrium is mildly dilated. There is no mitral valve stenosis. There is a mild to moderate amount of mitral regurgitation There is no evidence of mitral valve prolapse. There is no vegetation seen on the mitral valve. There is no aortic valvular vegetation. There is no aortic valve stenosis There is no LVOT obstruction. No aortic regurgitation is present. There is no tricuspid stenosis. There is a mild amount of tricuspid regurgitation At least moderat pulmonary hypertensionwih the least RVSP being 50 mm of Hg , with a RA mean of at least 20. There is no pulmonic valvular stenosis. There is no pulmonic valvular regurgitation. The aortic root is normal size. The inferior vena cava appeared dilated and did not change with respiration (RAP > 20 mmHg) There is no pericardial effusion. MMode/2D Measurements & Calculations IVSd: 0.76 cm LVIDd: 4.0 cm FS: 34.6 % Ao root diam: 2.9 cm LVIDs: 2.6 cm EDV(Teich): 71.9 ml Ao root area: 6.7 cm2 LVPWd: 0.86 cm ESV(Teich): 25.7 ml EF(Teich): 64.3 % Doppler Measurements & Calculations Ao V2 max: LV V1 max PG: PA V2 max: PI end-d allyn: 98.0 cm/sec 2.1 mmHg 79.8 cm/sec 134.6 cm/sec Ao max P.8 mmHg LV V1 max: PA max P.5 cm/sec 2.5 mmHg TR max allyn: 275.2 cm/sec TR max P.3 mmHg Left Ventricle The left ventricle is normal in size. There is normal left ventricular wall thickness. LV EF is 65%. Left ventricular systolic function is normal. Doppler measurements suggest impaired left ventricular relaxation, which is associated with grade I/IV or mild diastolic dysfunction. The left ventricular wall motion is normal. There is no thrombus. Probably no ASD,VSD,Or PFO seen. Right Ventricle The right ventricle is grossly normal size. The right ventricle is not well visualized secondary to technical limitations. Atria The right atrium is normal. The left atrium is mildly dilated. Mitral Valve There is no evidence of mitral valve prolapse. There is no vegetation seen on the mitral valve. There is no mitral valve stenosis. There is a mild to moderate amount of mitral regurgitation. Aortic Valve There is no aortic valvular vegetation. There is no aortic valve stenosis. There is no LVOT obstruction. No aortic regurgitation is present. Tricuspid Valve There is no tricuspid stenosis. There is a mild amount of tricuspid regurgitation. At least moderat pulmonary hypertensionwih the least RVSP being 50 mm of Hg , with a RA mean of at least 20. Pulmonic Valve There is no pulmonic valvular stenosis. There is no pulmonic valvular regurgitation. Great Vessels The aortic root is normal size. The inferior vena cava appeared dilated and did not change with respiration (RAP > 20 mmHg). Effusions There is no pericardial effusion. : ROSELIA FUNEZ, Araceli
--- NOTE | 2019-08-19 18:12 | PDOC PROGRESS REPORT ---
Subjective Progress Note for:: 08/19/19 Subjective:: 08.19.19: Patient has improved from a pulmonary and hemodynamic standpoint. She was started back on her oral rate control medications with good effect. The reduction of propofol she is following commands. Her ABG shows sufficient improvement. She does have a metabolic and respiratory alkalosis Diamox has been discontinued. 08.18.19: Admitted to ICU for [id number] respiratory failure. Intubated without difficulty. Has had ongoing anemia without any active bleeding. Reason For Visit: ACUTE EXACERBATION OF COPD ANEMIA WITH NEED FOR Physical Exam Vital Signs: Temp Pulse Resp BP Pulse Ox 98.8 F 99 16 116/61 99 08/19/19 02:38 08/18/19 20:00 08/19/19 02:38 08/19/19 02:38 08/19/19 02:38 Intake & Output 08/17/19 08/18/19 08/19/19 06:59 06:59 06:59 Intake Total 2816 4213 690 Output Total 0 290 400 Balance 2816 3923 290 Weight 43.7 kg 46.9 kg 46.9 kg Physical Exam: Intubated chronically and critically ill appearing 74-year-old female no active distress. Responsive to voice and commands. General appearance: PRESENT: no acute distress, well-developed Eye exam: PRESENT: conjunctiva pink, PERRLA. ABSENT: conjunctival injection, nystagmus, scleral icterus Teeth exam: PRESENT: edentulous Neck exam: PRESENT: carotid bruit - right side. ABSENT: JVD, lymphadenopathy, thyromegaly, tracheal deviation Respiratory exam: PRESENT: clear to auscultation leslie, unlabored. ABSENT: accessory muscle use, retraction, tachypnea, wheezes Cardiovascular exam: PRESENT: RRR. ABSENT: systolic murmur, tachycardia Pulses: ABSENT: normal dorsalis pedis pul, +1 pedal pulses bilateral Vascular exam: PRESENT: normal capillary refill, other - Warm. No evidence for ischemia GI/Abdominal exam: PRESENT: normal bowel sounds, soft. ABSENT: ascites, diminis hed bowel sounds, distended, firm, guarding, hyperactive bowel sounds, hypoactive bowel sounds, mass, Espinosa's sign, organolmegaly, rebound, rigid, tenderness Rectal exam: PRESENT: deferred Gentrourinary exam: PRESENT: indwelling catheter Extremities exam: ABSENT: joint swelling, pedal edema Musculoskeletal exam: ABSENT: deformity, dislocation Neurological exam: PRESENT: altered - Responsive on sedation. GCS: 3-2t (tries to speak)-6. No focal deficits. ABSENT: motor sensory deficit Psychiatric exam: PRESENT: appropriate affect Focused psych exam: ABSENT: psychomotor agitation, restlessness Skin exam: PRESENT: intact, normal color. ABSENT: abrasion, cyanosis, erythema, jaundice, mottled, pallor, petechiae, urticaria, vesicles Results Laboratory Results: 08/18/19 07:23 08/18/19 06:20 08/18/19 08/18/19 08/18/19 06:20 06:20 07:23 WBC Cancelled 12.4 H RBC Cancelled 3.81 Hgb Cancelled 10.7 L Hct Cancelled 34.5 L MCV Cancelled 91 MCH Cancelled 28.2 MCHC Cancelled 31.1 L RDW Cancelled 23.2 H Plt Count Cancelled 224 Carbonic Acid HCO3/H2CO3 Ratio ABG pH ABG pCO2 ABG pO2 ABG HCO3 ABG O2 Saturation ABG Base Excess FiO2 Sodium 143.3 Potassium 3.6 Chloride 116 H Carbon Dioxide 26 Anion Gap 1 L BUN 12 Creatinine 0.75 Est GFR ( Amer) > 60 Glucose 150 H Calcium 8.1 L 08/18/19 16:25 WBC RBC Hgb Hct MCV MCH MCHC RDW Plt Count Carbonic Acid 1.56 H HCO3/H2CO3 Ratio 16:1 ABG pH 7.31 L ABG pCO2 51.9 H ABG pO2 72.2 L ABG HCO3 25.3 H ABG O2 Saturation 92.9 L ABG Base Excess -1.5 FiO2 30% Sodium Potassium Chloride Carbon Dioxide Anion Gap BUN Creatinine Est GFR ( Amer) Glucose Calcium 08/13/19 23:10 Sputum Gram Stain - Final 08/17/19 17:20 Tracheal Aspirate Gram Stain - Final 08/17/19 17:20 Tracheal Aspirate Sputum Culture - Final GREATLY REDUCED NORMAL HERNANDO Labs- Last Values WBC 11.5 10^3/uL (4.0-10.5) H 08/19/19 04:15 RBC 3.96 10^6/uL (3.72-5.28) 08/19/19 04:15 Hgb 11.1 g/dL (12.0-15.5) L 08/19/19 04:15 Hct 35.3 % (36.0-47.0) L 08/19/19 04:15 MCV 89 fl (80-97) 08/19/19 04:15 MCH 28.0 pg (27.0-33.4) 08/19/19 04:15 MCHC 31.3 g/dL (32.0-36.0) L 08/19/19 04:15 RDW 23.4 % (11.5-14.0) H 08/19/19 04:15 Plt Count 214 10^3/uL (150-450) 08/19/19 04:15 Lymph % (Auto) 8.4 % (13-45) L 08/19/19 04:15 [place] % (Auto) 6.3 % (3-13) 08/19/19 04:15 Eos % (Auto) 2.6 % (0-6) 08/19/19 04:15 Baso % (Auto) 0.7 % (0-2) 08/19/19 04:15 Absolute Neuts (auto) 9.4 10^3/uL (1.7-8.2) H 08/19/19 04:15 Absolute Lymphs (auto) 1.0 10^3/uL (0.5-4.7) 08/19/19 04:15 Absolute Monos (auto) 0.7 10^3/uL (0.1-1.4) 08/19/19 04:15 Absolute Eos (auto) 0.3 10^3/uL (0.0-0.6) 08/19/19 04:15 Absolute Basos (auto) 0.1 10^3/uL (0.0-0.2) 08/19/19 04:15 Seg Neutrophils % 82.0 % (42-78) H 08/19/19 04:15 Toxic Granulation 1+ 08/19/19 04:15 Platelet Estimate Cancelled 08/18/19 06:20 Platelet Comment ADEQUATE 08/19/19 04:15 Polychromasia SLIGHT 08/14/19 10:37 Poikilocytosis 3+ 08/19/19 04:15 Anisocytosis 3+ 08/19/19 04:15 Tear Drop Cells 1+ 08/19/19 04:15 Ovalocytes 1+ 08/19/19 04:15 Ines Cells SLIGHT 08/19/19 04:15 Acanthocytes (Spur) SLIGHT 08/14/19 10:37 Schistocytes SLIGHT 08/19/19 04:15 PT 31.9 SEC (11.4-15.4) H 08/19/19 04:15 INR 3.01 08/19/19 04:15 Carbonic Acid 1.11 mmol/L (1.05-1.35) 08/19/19 04:45 HCO3/H2CO3 Ratio 22:1 08/19/19 04:45 ABG pH 7.45 (7.35-7.45) 08/19/19 04:45 ABG pCO2 36.9 mmHg (35-45) 08/19/19 04:45 ABG pO2 80.5 mmHg (80-100) 08/19/19 04:45 ABG HCO3 25.1 mmol/L (20-24) H 08/19/19 04:45 ABG Total CO2 26.2 mmol/L (21-25) H 08/19/19 04:45 ABG O2 Saturation 96.4 % (94-98) 08/19/19 04:45 ABG Base Excess 1.3 mmol/L 08/19/19 04:45 FiO2 4 08/19/19 04:45 Sodium 145.6 mmol/L (137-145) H 08/19/19 04:15 Potassium 4.3 mmol/L (3.6-5.0) 08/19/19 04:15 Chloride 116 mmol/L (98-107) H 08/19/19 04:15 Carbon Dioxide 21 mmol/L (22-30) L 08/19/19 04:15 Anion Gap 9 (5-19) 08/19/19 04:15 BUN 13 mg/dL (7-20) 08/19/19 04:15 Creatinine 0.72 mg/dL (0.52-1.25) 08/19/19 04:15 Est GFR ( Amer) > 60 (>60) 08/19/19 04:15 Est GFR (MDRD) Non-Af > 60 (>60) 08/19/19 04:15 Glucose 98 mg/dL (75-110) 08/19/19 04:15 POC Glucose 113 mg/dL (70-110) H 08/18/19 23:23 Calcium 9.0 mg/dL (8.4-10.2) 08/19/19 04:15 Phosphorus 2.5 mg/dL (2.5-4.5) 08/19/19 04:15 Magnesium 1.8 mg/dL (1.6-2.3) 08/19/19 04:15 Total Bilirubin 0.4 mg/dL (0.2-1.3) 08/13/19 23:35 Direct Bilirubin 0.2 mg/dL (0.0-0.4) 08/13/19 23:35 Neonat Total Bilirubin Not Reportable 08/13/19 23:35 Neonat Direct Bilirubin Not Reportable 08/13/19 23:35 Neonat Indirect Bili Not Reportable 08/13/19 23:35 AST 18 U/L (14-36) 08/13/19 23:35 ALT 11 U/L (<35) 08/13/19 23:35 Alkaline Phosphatase 85 U/L (38-126) 08/13/19 23:35 Ammonia 9.8 umol/L (9-33) 08/19/19 04:15 Total Protein 7.3 g/dL (6.3-8.2) 08/13/19 23:35 Albumin 3.4 g/dL (3.5-5.0) L 08/13/19 23:35 Slides for Path Review Cancelled 08/18/19 06:20 Blood Type A POSITIVE 08/13/19 23:35 Antibody Screen NEGATIVE 08/13/19 23:35 Crossmatch See Detail 08/13/19 23:35 Impressions: Chest X-Ray 08/17/19 00:00 IMPRESSION: Increasing opacities in the lungs. Stable effusions. Increasing vascular congestion. SUPPORT DEVICE(S) IN EXPECTED LOCATIONS. Status: Image reviewed by me Assessment & Plan - Diagnosis (1) Acute and chronic respiratory failure ([id number]) Qualifiers: Respiratory failure complication: hypercapnia Qualified Code(s): J96.22 - Acute and chronic respiratory failure with hypercapnia Is this a current diagnosis for this admission?: Yes (2) Atrial fibrillation Qualifiers: Atrial fibrillation type: longstanding persistent Qualified Code(s): I48.11 - Longstanding persistent atrial fibrillation Is this a current diagnosis for this admission?: Yes (3) Anemia Qualifiers: Anemia type: unspecified type Qualified Code(s): D64.9 - Anemia, unspecified Is this a current diagnosis for this admission?: Yes (4) Streptococcus pneumoniae pneumonia Qualifiers: Laterality: bilateral Lung location: unspecified part of lung Qualified Code(s): J13 - Pneumonia due to Streptococcus pneumoniae Is this a current diagnosis for this admission?: Yes (5) Haemophilus influenzae pneumonia Qualifiers: Laterality: bilateral Lung location: unspecified part of lung Qualified Code(s): J14 - Pneumonia due to Hemophilus influenzae Is this a current diagnosis for this admission?: Yes (6) Internal jugular vein thrombosis Qualifiers: Laterality: left Qualified Code(s): I82.C12 - Acute embolism and thrombosis of left internal jugular vein Is this a current diagnosis for this admission?: Yes Plan: Reported by ground water technician. Awaiting formal confirmation by radiologist no catheters or IVs in that site - Time Time Spent with patient: 35 or more minutes Total Critical Time (Minutes): 60 Level of Care: ICU Anticipated discharge: Acute Rehab - Inpatient Certification Based on my medical assessment, after consideration of the patient's comorbidities, presenting symptoms, or acuity I expect that the services needed warrant INPATIENT care.: Yes I certify that my determination is in accordance with my understanding of Medicare's requirements for reasonable and necessary INPATIENT services [42 CFR 412.3e].: Yes Medical Necessity: Significant Comorbidiites Make Outpatient Treatment Too Risky, Need Close Monitoring Due to Risk of Patient Decompensation, Need For IV Fluids, Need for IV Antibiotics, Risk of Complication if Not Cared For in Hospital, Risk of Diagnosis Which Will Require Inpatient Eval/Care/Monitoring Post Hospital Care: D/C Trap Puller Documentation - Plan Summary Plan Summary: 08.19.19: Patient has improved from a pulmonary and hemodynamic standpoint. Initially patient was diagnosed with acute kidney injury however this does not appear to be the case and has been deleted from her diagnostic records. She has a right carotid bruit with a left carotid endarterectomy scar. I have ordered a carotid ultrasound. Her chest x-ray has improved significantly and her labs are improved as well. On rounds she met suitability for the initiation of ventilator wean and this has begun. Her atrial fibrillation is controlled and we will need to be vigilant to make sure she has her oral medication before extubation. Her metabolic acidosis is from Diamox and I have discontinued this for now. Did receive a report that the patient has a possible left internal jugular thrombus. No IVs or central lines were placed. There is some suggestion that has free-floating components. obviously patient will need to be maintained on anticoagulation. There is a suggestion based on my visualization of the clot that this is chronic. We will attempt to get information from her previous surgeries for carotid disease. Patient did not tolerate full vent wean today and will reattempt in the morning. Continue treatment for Haemophilus influenza and Streptococcus pneumonia. Orders done or given are not always reflected by the timing of the placement in the chart. This patient requires critical care secondary to: Acute respiratory failure with need for mechanical ventilation Medical power of assistant district attorney is her daughter and sisters. They were updated at bedside 08.18.2019 Patient will be weaned off mechanical ventilation. Steroids have been adjusted. She does not wean we will start tube feeds. Check echocardiogram for pulmonary hypertension. Continue supportive care. For atrial fibrillation which is a known complication of significant pulmonary disease. Respiratory cultures positive for Haemophilus influenza and strep pneumoniae I have started the patient on azithromycin today prior to the culture data. ABG has significantly improved but she is not quite suitable for liberation from the ventilator. Started enteral calcium channel fadumo and increase metoprolol to 25 twice daily for her atrial fibrillation. Continue the warfarin however will need to be aware of any bleeding. She has had a low hemoglobin but no active bleeding. Her atrial fibrillation requires anticoagulation. We will have low threshold for conversion to heparin. Being said given her degree of COPD her anemia is significant and would expect a higher hemoglobin. Screening for hemolytic and destructive processes. The care of the patient is a dynamic an ongoing process throughout the ICU. Events of the day are captured in a one-time note format in an attempt to describe the last 24 hours.
--- NOTE | 2019-08-19 18:32 | PDOC CONSULTATION ---
Consultation Consult Date: 08/19/19 Provider Consulted: JOVI MONTERO History of Present Illness Admission Date/PCP: 08/13/19 21:55 АНДРЕЙ SUTTON History of Present Illness: JUNAID VILCHIS is a 74 year old female Patient who was admitted on 08/13/2019 with exacerbated COPD and shortness of breath. This was associated with nausea, anemia, and leukocytosis. Admission hemoglobin was 7.8 but it was 8.6 on 07/02/2019. Back in November of this year hemoglobin was 8.5. Her ferritin was normal in January and in June of this year. She is currently intubated and no history is obtainable from her. There has been no bright red blood per rectum or melena since admission. She did receive GoLYTELY earlier on today with the hope of performing a colonoscopy and this also did not reveal any bleeding. She received 2 units of blood a few days ago and her hemoglobin has stayed above 10. I did see her in 2009 in the hospital when she was diagnosed with a gastric ulcer by EGD. My initial plan was to perform an EGD and colonoscopy on her today while she is intubated but this was canceled. She had a neck Doppler earlier today that shows a clot in the left jugular vein. She is actually ready to be extubated. Past Medical History Cardiac Medical History: Reports: Atrial Fibrillation, Congestive Heart Failure, Coronary Artery Disease, Hyperlipidema, Hypertension Pulmonary Medical History: Reports: Bronchitis, Chronic Obstructive Pulmonary Disease (COPD) - stage 3, Pneumonia Malignancy Medical History: Reports: Breast Cancer - right, over 10 years ago Musculoskeltal Medical History: Reports: Arthritis Psychiatric Medical History: Reports: Depression Social History Smoking Status: Former Smoker Frequency of Alcohol Use: None Hx Recreational Drug Use: No Drugs: None Hx Prescription Drug Abuse: No Family History Family History: COPD, Hypertension Parental Family History Reviewed: No Children Family History Reviewed: NA Sibling(s) Family History Reviewed.: NA Medication/Allergy Home Medications: Acetazolamide [Diamox Sequel 500 mg] 500 mg PO DAILY 07/01/18 Albuterol Sulfate [Proair HFA Inhalation Aerosol 8.5 gm MDI] 2 puff IH Q4HP PRN 07/01/18 Budesonide/Formoterol Fumarate [Symbicort HFA 160-4.5 mcg Inhaler 6 gm] 2 puff IH Q12 07/01/18 Calcium Carbonate/Vitamin D3 [Oyster Shell 500-Vit D3 200 Tb] 1 tab PO DAILY 07/01/18 Citalopram Hydrobromide [Celexa 20 mg Tablet] 20 mg PO DAILY 07/01/18 Diltiazem HCl [Diltiazem 24Hr Cd] 120 mg PO DAILY 07/01/18 Gabapentin [Neurontin 300 mg Capsule] 300 mg PO Q8 07/01/18 Melatonin [Melatonin 3 mg Tablet] 3 mg PO QHS 07/01/18 Metoprolol Succinate [Toprol Xl] 25 mg PO DAILY 07/01/18 Multivitamin [Multiple Vitamins] 1 tab PO DAILY 07/01/18 Pantoprazole Sodium [Protonix] 40 mg PO DAILY 07/01/18 Tiotropium [place] [Spiriva Handihaler 18 mcg/dose (30 Dose)] 1 cap IH DAILY 07/01/18 Valsartan [Diovan 40 mg Tablet] 40 mg PO DAILY 07/01/18 Furosemide [Lasix 20 mg Tablet] 20 mg PO DAILY #30 tablet 11/14/18 Atorvastatin Calcium [Lipitor 40 mg Tablet] 40 mg PO QHS 11/20/18 Oxycodone HCl/Acetaminophen [Oxycodon-Acetaminophen 7.5-325] 1 tab PO Q8HP PRN 11/20/18 Latanoprost [Xalatan 0.005% Oph Soln 2.5 ml] 1 drop OU QHS 08/14/19 Venlafaxine HCl [Effexor 75 mg Tablet] 75 mg PO DAILY 08/14/19 Warfarin Sodium [Coumadin 3 mg Tablet] 3 mg PO QHS 08/14/19 Allergies/Adverse Reactions: bee pollen [Bee Pollen] Allergy (Unknown, Verified 01/15/18 08:05) moxifloxacin [From Avelox] Allergy (Verified 08/13/19 23:24) propoxyphene [From Darvocet-N] Allergy (Verified 01/15/18 08:05) venom-wasp [Wasp Venom] Allergy (Verified 01/15/18 08:05) Review of Systems ROS unobtainable: Due to endotracheal tube Physical Exam Vital Signs: Temp Pulse Resp BP Pulse Ox 99.0 F 87 11 L 134/71 H 93 08/19/19 16:00 08/19/19 18:00 08/19/19 18:00 08/19/19 18:00 08/19/19 18:00 Intake & Output 08/18/19 08/19/19 08/20/19 06:59 06:59 06:59 Intake Total 4213 951 436 Output Total 290 640 140 Balance 3923 311 296 Weight 46.9 kg 48.2 kg Exam: General: Patient is alert and remains on the ventilator. She does open her eyes to questions. HEENT: There is no pallor or jaundice. PERRLA. Oropharynx normal Respiratory: No chest deformity. No respiratory distress. Chest wall palpitation was unremarkable. Breath sounds were normal Cardiovascular: Heart sounds 1 and 2 normal with no murmurs. Abdominal: Not distended. Soft and nontender. Liver and spleen not palpable. No ascites demonstrated. Bowel sounds active. Rectal examination was deferred. Extremities: There is edema involving the upper and lower extremities Neurological: Alert Results Laboratory Results: 08/19/19 04:15 08/19/19 04:15 08/19/19 08/19/19 08/19/19 04:15 04:15 04:15 WBC 11.5 H RBC 3.96 Hgb 11.1 L Hct 35.3 L MCV 89 MCH 28.0 MCHC 31.3 L RDW 23.4 H Plt Count 214 Seg Neutrophils % 82.0 H Carbonic Acid HCO3/H2CO3 Ratio ABG pH ABG pCO2 ABG pO2 ABG HCO3 ABG O2 Saturation ABG Base Excess FiO2 Sodium 145.6 H Potassium 4.3 Chloride 116 H Carbon Dioxide 21 L Anion Gap 9 BUN 13 Creatinine 0.72 Est GFR ( Amer) > 60 Glucose 98 Calcium 9.0 Phosphorus 2.5 Magnesium 1.8 Ammonia 9.8 08/19/19 04:45 WBC RBC Hgb Hct MCV MCH MCHC RDW Plt Count Seg Neutrophils % Carbonic Acid 1.11 HCO3/H2CO3 Ratio 22:1 ABG pH 7.45 ABG pCO2 36.9 ABG pO2 80.5 ABG HCO3 25.1 H ABG O2 Saturation 96.4 ABG Base Excess 1.3 FiO2 4 Sodium Potassium Chloride Carbon Dioxide Anion Gap BUN Creatinine Est GFR ( Amer) Glucose Calcium Phosphorus Magnesium Ammonia 08/13/19 23:10 Sputum Gram Stain - Final 08/13/19 23:10 Sputum Sputum Culture - Final Haemophilus Influenzae Streptococcus Pneumoniae Normal Britni Impressions: Carotid Doppler Study 08/19/19 00:00 IMPRESSION: Extensive atherosclerotic disease bilaterally. By the numbers, 50 to 69% stenosis in the left CCA and ICA. Assessment & Plan - Diagnosis (1) Anemia requiring transfusions Is this a current diagnosis for this admission?: Yes Plan: She has chronic anemia which I suspect is related to her chronic diseases. Her hemoglobin on admission was lower than her usual though there is no obvious GI blood loss. She will benefit from an EGD and colonoscopy but the risk outweigh the benefit at this time especially with the jugular vein thrombosis. I will hold off on endoscopies at this time unless there is evidence for active bleeding. This could be performed as outpatient. (2) Internal jugular vein thrombosis Qualifiers: Laterality: left Qualified Code(s): I82.C12 - Acute embolism and thrombosis of left internal jugular vein Is this a current diagnosis for this admission?: Yes (3) Acute and chronic respiratory failure ([id number]) Qualifiers: Respiratory failure complication: hypercapnia Qualified Code(s): J96.22 - Acute and chronic respiratory failure with hypercapnia Is this a current diagnosis for this admission?: Yes
[2019-08-19] MEDS ORDERED: HEPARIN SODIUM,PORCINE/D5W 25,000 UNIT/250 ML RTUINJ IV PRN (19:43)
[2019-08-19 20:52] LABS: INTERNATIONAL RATION (INR) 3.16; PROTHROMBIN TIME 33.1 SEC (11.4-15.4)
[2019-08-19 20:53] LABS: PARTIAL THROMBOPLASTIN TIME 53.7 SEC (23.5-35.8)
[2019-08-19 20:57] LABS: APPEARANCE,URINE CLEAR; BILIRUBIN,URINE NEGATIVE (NEGATIVE); CALCIUM OXALATE CRYSTALS,URINE RARE /HPF; COLOR,URINE STRAW; GLUCOSE, URINE NEGATIVE (NEGATIVE); KETONES,URINE NEGATIVE (NEGATIVE); LEUKOCYTE ESTERASE,URINE NEGATIVE (NEGATIVE); NITRITE,URINE NEGATIVE (NEGATIVE); PROTEIN,URINE NEGATIVE (NEGATIVE); URINE SPECIFIC GRAVITY 1.013; UROBILINOGEN,URINE NEGATIVE mg/dL (<2.0)
[2019-08-19] MEDS: LATANOPROST 0.005% OPH SOLN 2.5 ML OU SCH (21:49)
[2019-08-19] MEDS: ATORVASTATIN CALCIUM 40 MG TABLET PO SCH (21:49)
[2019-08-19] MEDS ORDERED: HEPARIN SOD (PORCINE) 1,000 UNIT/ML 10 ML VIAL IV PRN (22:44)
[2019-08-20] MEDS: PIPERACILLIN SODIUM/TAZOBACTAM 3.375 GM in NORMAL SALINE 100 ML IV SCH ×3 (01:02→17:42)
[2019-08-20 04:20] LABS: ANION GAP 7 (5-19)
[2019-08-20 04:22] LABS: HEMATOCRIT 34.7 % (36.0-47.0)
[2019-08-20] MEDS: PROPOFOL 1,000 MG/100 ML INFUS..BTL IV PRN (05:15)
[2019-08-20] MEDS: GABAPENTIN 300 MG CAPSULE PO SCH ×4 (05:20→21:39)
[2019-08-20] MEDS: DILTIAZEM HCL 30 MG TABLET PO SCH ×4 (05:30→23:14)
[2019-08-20 07:14] LABS: BLOOD UREA NITROGEN 12 mg/dL (7-20); CALCIUM 9.1 mg/dL (8.4-10.2); CARBON DIOXIDE 26 mmol/L (22-30); CHLORIDE 109 mmol/L (98-107); GLUCOSE 80 mg/dL (75-110); POTASSIUM 3.9 mmol/L (3.6-5.0)
[2019-08-20 07:54] LABS: INTERNATIONAL RATION (INR) 2.78; PARTIAL THROMBOPLASTIN TIME 90.1 SEC (23.5-35.8); PROTHROMBIN TIME 29.9 SEC (11.4-15.4)
[2019-08-20 07:59] LABS: ARTERIAL BLOOD BASE EXCESS 1.3 mmol/L; ARTERIAL BLOOD H2CO3 0.88 mmol/L (1.05-1.35); ARTERIAL BLOOD HCO3 23.4 mmol/L (20-24); ARTERIAL BLOOD O2 SATURATION 97.6 % (94-98); ARTERIAL BLOOD PCO2 29.3 mmHg (35-45); ARTERIAL BLOOD PH 7.52 (7.35-7.45); ARTERIAL BLOOD PO2 88.6 mmHg (80-100); ARTERIAL BLOOD TOTAL CO2 24.3 mmol/L (21-25)
[2019-08-20 08:00] LABS: ARTERIAL BLOOD FIO2 30%
[2019-08-20 08:12] LABS: MEAN CORPUSCULAR HEMOGLOBIN 27.6 pg (27.0-33.4); MEAN CORPUSCULAR HGB CONC 31.7 g/dL (32.0-36.0); MEAN CORPUSCULAR VOLUME 87 fl (80-97); PLATELET COUNT 218 10^3/uL (150-450); RED BLOOD COUNT 3.99 10^6/uL (3.72-5.28)
--- NOTE | 2019-08-20 08:14 | RADIOLOGY REPORT (SQ) ---
EXAM DESCRIPTION: CHEST SINGLE VIEW COMPLETED DATE/TIME: 08/20/2019 7:37 am REASON FOR STUDY: pneumonia COMPARISON: 08/19/2019 NUMBER OF VIEWS: One view. TECHNIQUE: Single frontal radiographic image of the chest acquired. LIMITATIONS: None. FINDINGS: LUNGS AND PLEURA: Stable appearance. MEDIASTINUM AND HILAR STRUCTURES: Stable heart size and mediastinal structures. HEART AND VASCULAR STRUCTURES: Stable appearance. SUPPORT DEVICES: Endotracheal tube remains in the proximal right mainstem bronchus and should be with drawn approximately 3.5 cm. BONES: No acute findings. OTHER: No other significant finding. IMPRESSION: Stable appearance of the chest. Endotracheal tube remains in the right mainstem bronchu s and should be withdrawn 3.5 cm. There is was noted on yesterday's exam as well. COMMENT: This report was called to MARIA Vasquez at08:07 on 08/20/2019. TECHNICAL DOCUMENTATION: JOB ID: [id number] [employer]- All Rights Reserved Reading location - IP/workstation name: [email or web address]
[2019-08-20] MEDS: IPRATROPIUM/ALBUTEROL 0.5-2.5 MG/3 ML AMPUL NEB PRN (08:22)
[2019-08-20 08:41] LABS: APPEARANCE,URINE CLEAR; BILIRUBIN,URINE NEGATIVE (NEGATIVE); COLOR,URINE YELLOW; GLUCOSE, URINE NEGATIVE (NEGATIVE); KETONES,URINE NEGATIVE (NEGATIVE); LEUKOCYTE ESTERASE,URINE NEGATIVE (NEGATIVE); NITRITE,URINE NEGATIVE (NEGATIVE); PROTEIN,URINE NEGATIVE (NEGATIVE); URINE SPECIFIC GRAVITY 1.013; UROBILINOGEN,URINE NEGATIVE mg/dL (<2.0)
--- NOTE | 2019-08-20 08:50 | RADIOLOGY REPORT (SQ) ---
EXAM DESCRIPTION: CHEST SINGLE VIEW COMPLETED DATE/TIME: 08/20/2019 8:40 am REASON FOR STUDY: ETT placement COMPARISON: Earlier the same day. NUMBER OF VIEWS: One view. TECHNIQUE: Single frontal radiographic image of the chest acquired. LIMITATIONS: None. FINDINGS: LUNGS AND PLEURA: Stable appearance. MEDIASTINUM AND HILAR STRUCTURES: Stable heart size and mediastinal structures. HEART AND VASCULAR STRUCTURES: Stable appearance. SUPPORT DEVICES: Endotracheal tube has been slightly withdrawn. Tip now lies approximately 2.5 cm ab ove the samara. BONES: No acute findings. OTHER: No other significant finding. IMPRESSION: Endotracheal tube has been repositioned and now lies just above the samara. No other ch sidra. TECHNICAL DOCUMENTATION: JOB ID: [id number] [employer]- All Rights Reserved Reading location - IP/workstation name: [email or web address]
[2019-08-20] MEDS: FLUTICASONE/VILANTEROL 200-25 MCG/DOSE IH SCH (09:13)
[2019-08-20] MEDS: DOCUSATE SODIUM 100 MG CAPSULE PO SCH (09:13)
[2019-08-20] MEDS: UMECLIDINIUM BROMIDE 62.5 MCG/DOSE IH SCH (09:14)
[2019-08-20] MEDS: CALCIUM CARBONATE 250 MG/VITAMIN D3 125 UNIT TABLET PO SCH (09:18)
[2019-08-20] MEDS: MULTIVITAMIN TABLET PO SCH (09:18)
[2019-08-20] MEDS: METOPROLOL TARTRATE 25 MG TABLET PO SCH ×2 (09:19→21:39)
[2019-08-20] MEDS: VENLAFAXINE HCL 75 MG TABLET PO SCH (09:19)
[2019-08-20] MEDS: VALSARTAN 40 MG TABLET PO SCH (09:19)
[2019-08-20] MEDS: MUPIROCIN 2% OINTMENT 22 GM TP SCH ×3 (09:20→17:11)
[2019-08-20] MEDS: POTASSIUM CHLORIDE 20 MEQ PACKET PO SCH (09:20)
[2019-08-20] MEDS: CITALOPRAM HYDROBROMIDE 20 MG TABLET PO SCH (09:20)
[2019-08-20] MEDS: FAMOTIDINE 20 MG TABLET PO SCH (09:20)
[2019-08-20 12:49] LABS: ARTERIAL BLOOD BASE EXCESS -0.5 mmol/L; ARTERIAL BLOOD H2CO3 1.28 mmol/L (1.05-1.35); ARTERIAL BLOOD HCO3 24.6 mmol/L (20-24); ARTERIAL BLOOD O2 SATURATION 96.7 % (94-98); ARTERIAL BLOOD PCO2 42.5 mmHg (35-45); ARTERIAL BLOOD PH 7.38 (7.35-7.45); ARTERIAL BLOOD PO2 89.2 mmHg (80-100); ARTERIAL BLOOD TOTAL CO2 25.9 mmol/L (21-25)
[2019-08-20 12:51] LABS: ARTERIAL BLOOD FIO2 30%
[2019-08-20] MEDS: AZITHROMYCIN 500 MG in DEXTROSE 5%-WATER 250 ML IV SCH (13:03)
[2019-08-20 15:36] LABS: APPEARANCE,URINE SLIGHTLY-CLOUDY; BILIRUBIN,URINE NEGATIVE (NEGATIVE); COLOR,URINE YELLOW; GLUCOSE, URINE NEGATIVE (NEGATIVE); KETONES,URINE NEGATIVE (NEGATIVE); LEUKOCYTE ESTERASE,URINE NEGATIVE (NEGATIVE); NITRITE,URINE NEGATIVE (NEGATIVE); PROTEIN,URINE NEGATIVE (NEGATIVE); URINE SPECIFIC GRAVITY 1.023; UROBILINOGEN,URINE NEGATIVE mg/dL (<2.0)
[2019-08-20] MEDS ORDERED: PHARMACY COMMUNICATION ORDER MC NR (15:45)
[2019-08-20] MEDS ORDERED: ACETAMINOPHEN 325 MG TABLET PO PRN (16:03)
[2019-08-20] MEDS ORDERED: OXYCODONE HCL IR 5 MG TABLET PO PRN (16:07)
[2019-08-20] MEDS ORDERED: DILTIAZEM HCL 30 MG TABLET ONE (17:39)
--- NOTE | 2019-08-20 18:57 | PDOC PROGRESS REPORT ---
Subjective Progress Note for:: 08/20/19 Subjective:: 08.20.19: Patient did not tolerate SBT- ventilator weaning trial yesterday She was found to have a left internal jugular venous clot that appeared to be chronic in nature. She did tolerate weaning this morning and this afternoon was successfully liberated from the ventilator. I did have a chance to discuss the blood clot in the left neck with the family and the patient. Other than her carotid endarterectomy procedure she has had no other procedures and has had no recent central venous catheter insertions or attempts. There is some history of noncompliance with the warfarin however patient states that she has been diligent to take this. Her INR has been consistent. 08.19.19: Patient has improved from a pulmonary and hemodynamic standpoint. She was started back on her oral rate control medications with good effect. The reduction of propofol she is following commands. Her ABG shows sufficient improvement. She does have a metabolic and respiratory alkalosis Diamox has been discontinued. 08.18.19: Admitted to ICU for [id number] respiratory failure. Intubated without difficulty. Has had ongoing anemia without any active bleeding. Reason For Visit: ACUTE EXACERBATION OF COPD ANEMIA WITH NEED FOR Physical Exam Vital Signs: Temp Pulse Resp BP Pulse Ox 99.3 F 71 16 137/66 H 100 08/20/19 03:00 08/19/19 21:29 08/20/19 03:00 08/20/19 02:38 08/20/19 03:19 Intake & Output 08/19/19 08/20/19 08/21/19 06:59 06:59 06:59 Intake Total 951 624 Output Total 640 1135 Balance 311 -511 Weight 48.2 kg Physical Exam: Intubated chronically and critically ill-appearing 74-year-old female no active distress. Evaluated after extubation. No stridor. Voice improving over time. General appearance: PRESENT: no acute distress, cooperative, thin. ABSENT: mild distress, severe distress Eye exam: PRESENT: conjunctiva pink, EOMI, PERRLA. ABSENT: conjunctival injection, nystagmus, scleral icterus Mouth exam: PRESENT: moist, neck supple, tongue midline Teeth exam: PRESENT: dental caries, poor dentation Neck exam: PRESENT: carotid bruit - Right. ABSENT: JVD, lymphadenopathy, tenderness, thyromegaly Respiratory exam: PRESENT: clear to auscultation leslie, unlabored. ABSENT: accessory muscle use, tachypnea, wheezes Cardiovascular exam: PRESENT: irregular rhythm, +S1, +S2. ABSENT: rubs, tachycardia Pulses: PRESENT: +1 pedal pulses bilateral Vascular exam: PRESENT: normal capillary refill GI/Abdominal exam: PRESENT: normal bowel sounds, soft. ABSENT: ascites, diminished bowel sounds, distended, firm, guarding, mass, Espinosa's sign, rebound, rigid, tenderness Rectal exam: PRESENT: deferred Gentrourinary exam: PRESENT: indwelling catheter Extremities exam: ABSENT: joint swelling, pedal edema Musculoskeletal exam: PRESENT: normal inspection. ABSENT: deformity, dislocation Neurological exam: PRESENT: alert, awake, oriented to person, oriented to place, oriented to time, oriented to situation, CN II-XII grossly intact. ABSENT: motor sensory deficit, aphasic Additional comments: Fully evaluated after extubation Psychiatric exam: PRESENT: appropriate affect. ABSENT: agitated, anxious Focused psych exam: ABSENT: psychomotor agitation, restlessness Skin exam: PRESENT: intact, normal color, warm. ABSENT: cyanosis, erythema, mottled, pallor, petechiae, urticaria, vesicles Results Laboratory Results: 08/20/19 03:41 08/19/19 08/20/19 20:40 03:41 Sodium 142.2 Potassium 3.9 Chloride 109 H Carbon Dioxide 26 Anion Gap 7 BUN 12 Creatinine 0.77 Est GFR ( Amer) > 60 Glucose 80 Calcium 9.1 Phosphorus 3.0 Magnesium 1.7 Urine Color STRAW Urine Appearance CLEAR Urine pH 6.0 Ur Specific Henderson 1.013 Urine Protein NEGATIVE Urine Glucose (UA) NEGATIVE Urine Ketones NEGATIVE Urine Blood MODERATE H Urine Nitrite NEGATIVE Ur Leukocyte Esterase NEGATIVE Urine WBC (Auto) 3 Urine RBC (Auto) 112 08/13/19 23:10 Sputum Gram Stain - Final 08/13/19 23:10 Sputum Sputum Culture - Final Haemophilus Influenzae Streptococcus Pneumoniae Normal Britni Impressions: Carotid Doppler Study 08/19/19 00:00 IMPRESSION: Extensive atherosclerotic disease bilaterally. By the numbers, 50 to 69% stenosis in the left CCA and ICA. Status: Image reviewed by me Assessment & Plan - Diagnosis (1) Acute and chronic respiratory failure ([id number]) Qualifiers: Respiratory failure complication: hypercapnia Qualified Code(s): J96.22 - Acute and chronic respiratory failure with hypercapnia Is this a current diagnosis for this admission?: Yes (2) Atrial fibrillation Qualifiers: Atrial fibrillation type: longstanding persistent Qualified Code(s): I48.11 - Longstanding persistent atrial fibrillation Is this a current diagnosis for this admission?: Yes (3) Anemia Qualifiers: Anemia type: unspecified type Qualified Code(s): D64.9 - Anemia, unspecified Is this a current diagnosis for this admission?: Yes (4) Streptococcus pneumoniae pneumonia Qualifiers: Laterality: bilateral Lung location: unspecified part of lung Qualified Code(s): J13 - Pneumonia due to Streptococcus pneumoniae Is this a current diagnosis for this admission?: Yes (5) Haemophilus influenzae pneumonia Qualifiers: Laterality: bilateral Lung location: unspecified part of lung Qualified Code(s): J14 - Pneumonia due to Hemophilus influenzae Is this a current diagnosis for this admission?: Yes (6) Internal jugular vein thrombosis Qualifiers: Laterality: left Qualified Code(s): I82.C12 - Acute embolism and thrombosis of left internal jugular vein Is this a current diagnosis for this admission?: Yes - Time Time Spent with patient: 35 or more minutes Total Critical Time (Minutes): 60 Level of Care: ICU Medications reviewed and adjusted accordingly: Yes Anticipated discharge: Acute Rehab Within: within 48 hours - Inpatient Certification Medical Necessity: Failure to Improve With Outpatient Therapy, Need For IV Flu ids, Need for Neurological Checks, Need for IV Antibiotics, Risk of Complication if Not Cared For in Hospital Post 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 We will continue antibiotics for total of 7 days. He informs us that she is on CPAP at night and have ordered this. Oxygen dependent and a former smoker. She stopped smoking 3 years ago. She denies any recent manipulation of neck veins however did describe a fall a number of weeks ago. It is unknown known how long this clot has been there. Try to obtain records from her previous admissions at other hospitals to determine the chronicity of this clot. Had a lengthy discussion regarding her anticoagulation therapy. She is quite frustrated with the inconsistent INR's and the accusations that she is often not eating correctly or taking the drug correctly. She does have atrial fibrillation and has a clot in her neck vein. Had been on heparin however her INR continues to be elevated and I have discontinued this until her INR passively is reduced. We will then start NOAK therapy He has not had any bleeding while on heparin and/or warfarin while admitted in the ICU. Will need further work-up as an outpatient. Given the degree of her anemia in the face of advanced COPD the anemia is of significant importance to be evaluated. Orders done or given are not always reflected by the timing of the placement in the chart. This patient requires critical care secondary to: Acute respiratory failure with need for mechanical ventilation Multidisciplinary rounds were done at bedside with attention to ABCD EF bundle compliance Medical power of divorce attorney is her daughter and sisters. They were updated at bedside 08.19.19: Patient has improved from a pulmonary and hemodynamic standpoint. Initially patient was diagnosed with acute kidney injury however this does not appear to be the case and has been deleted from her diagnostic records. She has a right carotid bruit with a left carotid endarterectomy scar. I have ordered a carotid ultrasound. Her chest x-ray has improved significantly and her labs are improved as well. On rounds she met suitability for the initiation of ventilator wean and this has begun. Her atrial fibrillation is controlled and we will need to be vigilant to make sure she has her oral medication before extubation. Her metabolic acidosis is from Diamox and I have discontinued this for now. Did receive a report that the patient has a possible left internal jugular thrombus. No IVs or central lines were placed. There is some suggestion that has free-floating components. obviously patient will need to be maintained on anticoagulation. There is a suggestion based on my visualization of the clot that this is chronic. We will attempt to get information from her previous surgeries for carotid disease. Patient did not tolerate full vent wean today and will reattempt in the morning. Continue treatment for Haemophilus influenza and Streptococcus pneumonia. 08.18.2019 Patient will be weaned off mechanical ventilation. Steroids have been adjusted. She does not wean we will start tube feeds. Check echocardiogram for pulmonary hypertension. Continue supportive care. For atrial fibrillation which is a known complication of significant pulmonary disease. Respiratory cultures positive for Haemophilus influenza and strep pneumoniae I have started the patient on azithromycin today prior to the culture data. ABG has significantly improved but she is not quite suitable for liberation from the ventilator. Started enteral calcium channel fadumo and increase metoprolol to 25 twice daily for her atrial fibrillation. Continue the warfarin however will need to be aware of any bleeding. She has had a low hemoglobin but no active bleeding. Her atrial fibrillation requires anticoagulation. We will have low threshold for conversion to heparin. Being said given her degree of COPD her anemia is significant and would expect a higher hemoglobin. Screening for hemolytic and destructive processes. 11.13.19: The care of the patient is a dynamic an ongoing process throughout the ICU. Events of the day are captured in a one-time note format in an attempt to describe the last 24 hours. Multidisciplinary rounds were carried out at bedside. ABCDEF Guidelines a ddressed for patient care. MPOA: Daughter and sisters. Code status: Full Patient requires ICU care secondary to acute respiratory failure with need for mechanical ventilation
[2019-08-20] MEDS: OXYCODONE-ACETAMINOPHEN 5-325 MG TABLET PO PRN (20:05)
[2019-08-20] MEDS: ATORVASTATIN CALCIUM 40 MG TABLET PO SCH (21:39)
[2019-08-20] MEDS: LATANOPROST 0.005% OPH SOLN 2.5 ML OU SCH (21:39)
[2019-08-20] MEDS: ALBUTEROL SULFATE 0.083% NEB 2.5 MG/3 ML AMPUL NEB SCH (22:07)
[2019-08-21] MEDS: OXYCODONE-ACETAMINOPHEN 5-325 MG TABLET PO PRN ×3 (00:07→20:19)
[2019-08-21] MEDS: ALBUTEROL SULFATE 0.083% NEB 2.5 MG/3 ML AMPUL NEB SCH ×6 (00:09→21:08)
[2019-08-21 04:24] LABS: ARTERIAL BLOOD BASE EXCESS -1.6 mmol/L; ARTERIAL BLOOD H2CO3 1.74 mmol/L (1.05-1.35); ARTERIAL BLOOD O2 SATURATION 94.7 % (94-98); ARTERIAL BLOOD PCO2 57.7 mmHg (35-45); ARTERIAL BLOOD PH 7.27 (7.35-7.45); ARTERIAL BLOOD PO2 83.9 mmHg (80-100); ARTERIAL BLOOD TOTAL CO2 27.7 mmol/L (21-25)
[2019-08-21 04:25] LABS: ARTERIAL BLOOD FIO2 3L
[2019-08-21] MEDS: DILTIAZEM HCL 30 MG TABLET PO SCH ×3 (05:36→18:47)
[2019-08-21] MEDS: GABAPENTIN 300 MG CAPSULE PO SCH ×4 (05:37→22:28)
[2019-08-21 07:50] LABS: ABSOLUTE BASOPHILS # (AUTO) 0.1 10^3/uL (0.0-0.2); ABSOLUTE EOSINOPHILS # (AUTO) 0.2 10^3/uL (0.0-0.6); ABSOLUTE LYMPHOCYTES (AUTO) 0.9 10^3/uL (0.5-4.7); ABSOLUTE MONOCYTES (AUTO) 0.9 10^3/uL (0.1-1.4); ABSOLUTE NEUT (AUTO) 12.3 10^3/uL (1.7-8.2); BASOPHILS % (AUTO) 0.3 % (0-2); EOSINOPHILS % (AUTO) 1.6 % (0-6); HEMATOCRIT 33.9 % (36.0-47.0); HEMOGLOBIN 10.7 g/dL (12.0-15.5); LYMPHOCYTES % (AUTO) 6.4 % (13-45); MEAN CORPUSCULAR HEMOGLOBIN 28.1 pg (27.0-33.4); MEAN CORPUSCULAR HGB CONC 31.5 g/dL (32.0-36.0); MEAN CORPUSCULAR VOLUME 89 fl (80-97); MONOCYTES % (AUTO) 6.2 % (3-13); PLATELET COUNT 240 10^3/uL (150-450); RED CELL DISTRIBUTION WIDTH 22.7 % (11.5-14.0); SEGMENTED NEUTROPHILS % (AUTO) 85.5 % (42-78); TOTAL CELLS COUNTED % (AUTO) 100 %; WHITE BLOOD COUNT 14.4 10^3/uL (4.0-10.5)
[2019-08-21 07:58] LABS: INTERNATIONAL RATION (INR) 2.66; PROTHROMBIN TIME 28.9 SEC (11.4-15.4)
[2019-08-21 08:12] LABS: ANION GAP 6 (5-19); BLOOD UREA NITROGEN 9 mg/dL (7-20); CALCIUM 8.9 mg/dL (8.4-10.2); CARBON DIOXIDE 24 mmol/L (22-30); CHLORIDE 108 mmol/L (98-107); GLUCOSE 99 mg/dL (75-110); PHOSPHORUS 3.7 mg/dL (2.5-4.5); POTASSIUM 4.4 mmol/L (3.6-5.0)
--- NOTE | 2019-08-21 08:28 | RADIOLOGY REPORT (SQ) ---
EXAM DESCRIPTION: CHEST SINGLE VIEW COMPLETED DATE/TIME: 08/21/2019 6:12 am REASON FOR STUDY: pneumonia on ventilator COMPARISON: 03/30/2019, 08/16/2019, 08/20/2019 chest films EXAM PARAMETERS: NUMBER OF VIEWS: One view. TECHNIQUE: Single frontal radiographic view of the chest acquired. RADIATION DOSE: NA LIMITATIONS: None. FINDINGS: LUNGS AND PLEURA: Small bilateral pleural effusions are present blunting the lateral costo phrenic sulci. Increase in bilateral pulmonary vascular congestion and perihilar pulmonary edema since 08/20/2019 at 0832 hours. No pneumothorax MEDIASTINUM AND HILAR STRUCTURES: No masses. Contour normal. HEART AND VASCULAR STRUCTURES: Stable moderate cardiomegaly BONES: No acute findings. HARDWARE: Endotracheal tube is been removed. Nasogastric tube has been removed OTHER: Clips right breast post lumpectomy IMPRESSION: Postextubation. Increase in pulmonary edema and pulmonary vascular congestion Small bilateral pleural effusions TECHNICAL DOCUMENTATION: JOB ID: [id number] [employer]- All Rights Reserved Reading location - IP/workstation name: [email or web address]
[2019-08-21 09:31] LABS: ARTERIAL BLOOD BASE EXCESS -3.5 mmol/L; ARTERIAL BLOOD H2CO3 1.38 mmol/L (1.05-1.35); ARTERIAL BLOOD HCO3 22.7 mmol/L (20-24); ARTERIAL BLOOD O2 SATURATION 89.6 % (94-98); ARTERIAL BLOOD PCO2 45.8 mmHg (35-45); ARTERIAL BLOOD PH 7.31 (7.35-7.45); ARTERIAL BLOOD PO2 61.8 mmHg (80-100); ARTERIAL BLOOD TOTAL CO2 24.1 mmol/L (21-25)
[2019-08-21 09:33] LABS: ARTERIAL BLOOD FIO2 4L
[2019-08-21] MEDS: VENLAFAXINE HCL 75 MG TABLET PO SCH (11:06)
[2019-08-21] MEDS: CITALOPRAM HYDROBROMIDE 20 MG TABLET PO SCH (11:07)
[2019-08-21] MEDS: MULTIVITAMINS W-IRON TABLET, CHEWABLE PO SCH (11:08)
[2019-08-21] MEDS: POTASSIUM CHLORIDE 20 MEQ PACKET PO SCH (11:08)
[2019-08-21] MEDS: CALCIUM CARBONATE 250 MG/VITAMIN D3 125 UNIT TABLET PO SCH (11:08)
[2019-08-21] MEDS: METOPROLOL TARTRATE 25 MG TABLET PO SCH ×2 (11:08→22:09)
[2019-08-21] MEDS: VALSARTAN 40 MG TABLET PO SCH (11:09)
[2019-08-21] MEDS: MUPIROCIN 2% OINTMENT 22 GM TP SCH ×3 (11:09→18:48)
[2019-08-21] MEDS: DOCUSATE SODIUM 100 MG CAPSULE PO SCH (11:09)
[2019-08-21] MEDS: UMECLIDINIUM BROMIDE 62.5 MCG/DOSE IH SCH (11:16)
[2019-08-21] MEDS: FLUTICASONE/VILANTEROL 200-25 MCG/DOSE IH SCH (11:17)
[2019-08-21] MEDS: AZITHROMYCIN 250 MG TABLET PO SCH (14:22)
--- NOTE | 2019-08-21 16:53 | RADIOLOGY REPORT (SQ) ---
EXAM DESCRIPTION: VENOUS BILATERAL UPPER COMPLETED DATE/TIME: 08/21/2019 4:38 pm REASON FOR STUDY: swelling COMPARISON: Carotid Doppler 08/19/2019 CT angio chest 07/01/2018 TECHNIQUE: Dynamic and static kirby scale and color images acquired of the right and left arm venous system. Selected spectral images acquired with additional compression and augmentation maneuvers. The contralateral subclavian vein and internal jugular vein were also imaged. Images stored on PACS. LIMITATIONS: None. FINDINGS: RIGHT INTERNAL JUGULAR VEIN: Normal phasicity, compression, augmentation. No visualized echogenic material on kirby scale. No defects on color images. Comparison opposite side normal. SUBCLAVIAN VEIN: Normal compression, augmentation. No visualized echogenic material on kirby scale. No defects on color images. AXILLARY VEIN: Normal compression, augmentation. No visualized echogenic material on kirby scale. No d efects on color images. BRACHIAL VEIN: Normal compression, augmentation. No visualized echogenic material on kirby scale. No d efects on color images. BASILIC VEIN: Normal compression, augmentation. No visualized echogenic material on kirby scale. No de fects on color images. CEPHALIC VEIN: Normal compression, augmentation. No visualized echogenic material on kirby scale. No d efects on color images. OTHER: No other significant finding. LEFT SUBCLAVIAN VEIN AND INTERNAL JUGULAR VEIN: INTERNAL JUGULAR VEIN: Mixed echogenicity incompletely occlusive clot is present in the left internal jugular vein, similar to the carotid Doppler exam 08/19/2019. SUBCLAVIAN VEIN: Normal compression, augmentation. No visualized echogenic material on kirby scale. No defects on color images. AXILLARY VEIN: Normal compression, augmentation. No visualized echogenic material on kirby scale. No d efects on color images. BRACHIAL VEIN: Normal compression, augmentation. No visualized echogenic material on kirby scale. No d efects on color images. BASILIC VEIN: Normal compression, augmentation. No visualized echogenic material on kibry scale. No de fects on color images. CEPHALIC VEIN: Occluded throughout the left upper extremity There is a soft tissue mass in the left supraclavicular region discrete from the thyroid, common [place] tid artery and internal jugular vein measuring at least 3.8 x 3.6 x 3 cm in size. This is worrisome for enlarged supraclavicular lymph node IMPRESSION: No right jugular lower pole upper extremity venous thrombosis Incompletely occlusive mixed echogenicity clot in the left internal jugular vein No flow is identified in the left arm cephalic vein which is diffusely small 3.8 x 3.6 x 3 cm soft tissue mass in the left supraclavicular region adjacent to the thrombosed IJ ve in. This could represent an enlarged lymph node TECHNICAL DOCUMENTATION: JOB ID: [id number] [employer]- All Rights Reserved Reading location - IP/workstation name: [email or web address]
--- NOTE | 2019-08-21 18:07 | PDOC PROGRESS REPORT ---
Subjective Progress Note for:: 08/21/19 Subjective:: 08.21.19: Patient successfully extubated. She has had no respiratory distress and no dyspnea. She normally is on 2 liters of O2 at home and currently on 4 liters here. In concern for the left internal jugular clot seen on carotid artery studies bilateral upper extremity venous evaluation was done. In that evaluation a large lymph node was noted in the antoine-fascial tissue next to the left internal jugular. She also has a cephalic vein thrombus. Her INR still remains elevated. She has had no bleeding. 08.20.19: Patient did not tolerate SBT- ventilator weaning trial yesterday She was found to have a left internal jugular venous clot that appeared to be chronic in nature. She did tolerate weaning this morning and this afternoon was successfully liberated from the ventilator. I did have a chance to discuss the blood clot in the left neck with the family and the patient. Other than her carotid endarterectomy procedure she has had no other procedures and has had no recent central venous catheter insertions or attempts. There is some history of noncompliance with the warfarin however patient states that she has been diligent to take this. Her INR has been consistent. 08.19.19: Patient has improved from a pulmonary and hemodynamic standpoint. She was started back on her oral rate control medications with good effect. The reduction of propofol she is following commands. Her ABG shows sufficient improvement. She does have a metabolic and respiratory alkalosis Diamox has been discontinued. 08.18.19: Admitted to ICU for iazsm-ir-ketommi respiratory failure. Intubated without difficulty. Has had ongoing anemia without any active bleeding. Reason For Visit: ACUTE EXACERBATION OF COPD ANEMIA WITH NEED FOR Physical Exam Vital Signs: Temp Pulse Resp BP Pulse Ox 97.7 F 79 14 132/57 H 98 08/21/19 06:00 08/21/19 04:09 08/21/19 06:00 08/21/19 05:40 08/21/19 06:00 Intake & Output 08/20/19 08/21/19 08/22/19 06:59 06:59 06:59 Intake Total 974 622 Output Total 1135 940 Balance -161 -318 Weight 48.9 kg 48 kg Physical Exam: Extubated chronically but less critically ill-appearing 74-year-old female no active distress. Awake alert and oriented x3 General appearance: PRESENT: no acute distress, cooperative, thin. ABSENT: mild distress, severe distress Eye exam: PRESENT: conjunctiva pink, EOMI, PERRLA. ABSENT: conjunctival injection, nystagmus, scleral icterus Mouth exam: PRESENT: neck supple Teeth exam: PRESENT: edentulous Neck exam: PRESENT: lymphadenopathy - on left side. ABSENT: carotid bruit, JVD, tenderness, thyromegaly, tracheal deviation Respiratory exam: PRESENT: crackles - Mild on left, unlabored. ABSENT: accessory muscle use, rales, retraction, rhonchi, tachypnea Cardiovascular exam: PRESENT: irregular rhythm - occasional tachycardia, +S1, +S2. ABSENT: systolic murmur Pulses: PRESENT: +1 pedal pulses bilateral Vascular exam: PRESENT: normal capillary refill GI/Abdominal exam: PRESENT: normal bowel sounds, soft. ABSENT: ascites, diminished bowel sounds, distended, firm, guarding, hyperactive bowel sounds, hypoactive bowel sounds, mass, Espinosa's sign, organolmegaly, rebound, rigid, tenderness Rectal exam: PRESENT: deferred Gentrourinary exam: PRESENT: indwelling catheter Extremities exam: ABSENT: joint swelling, pedal edema Musculoskeletal exam: PRESENT: normal inspection. ABSENT: deformity, dislocation, tenderness - Has IV in left lower leg Neurological exam: PRESENT: alert, awake, oriented to person, oriented to place, oriented to time, oriented to situation, CN II-XII grossly intact. ABSENT: motor sensory deficit, aphasic Psychiatric exam: PRESENT: appropriate affect. ABSENT: agitated, anxious Skin exam: PRESENT: intact, normal color. ABSENT: cyanosis, dry, erythema, jaundice, mottled, pallor, petechiae, urticaria, vesicles Results Laboratory Results: 08/20/19 08/20/19 08/20/19 03:41 07:30 08:13 WBC 11.0 H RBC 3.99 Hgb 11.0 L Hct 34.7 L MCV 87 MCH 27.6 MCHC 31.7 L RDW 23.0 H Plt Count 218 Carbonic Acid 0.88 L HCO3/H2CO3 Ratio 26:1 ABG pH 7.52 H ABG pCO2 29.3 L ABG pO2 88.6 ABG HCO3 23.4 ABG O2 Saturation 97.6 ABG Base Excess 1.3 FiO2 30% Urine Color YELLOW Urine Appearance CLEAR Urine pH 5.0 Ur Specific [place] 1.013 Urine Protein NEGATIVE Urine Glucose (UA) NEGATIVE Urine Ketones NEGATIVE Urine Blood SMALL H Urine Nitrite NEGATIVE Ur Leukocyte Esterase NEGATIVE Urine WBC (Auto) 2 Urine RBC (Auto) 26 08/20/19 08/20/19 08/21/19 12:01 15:09 04:13 WBC RBC Hgb Hct MCV MCH MCHC RDW Plt Count Carbonic Acid 1.28 1.74 H HCO3/H2CO3 Ratio 19:1 14:1 ABG pH 7.38 7.27 L ABG pCO2 42.5 57.7 H ABG pO2 89.2 83.9 ABG HCO3 24.6 H 26.0 H ABG O2 Saturation 96.7 94.7 ABG Base Excess -0.5 -1.6 FiO2 30% 3L Urine Color YELLOW Urine Appearance SLIGHTLY-CLOUDY Urine pH 5.0 Ur Specific [place] 1.023 Urine Protein NEGATIVE Urine Glucose (UA) NEGATIVE Urine Ketones NEGATIVE Urine Blood SMALL H Urine Nitrite NEGATIVE Ur Leukocyte Esterase NEGATIVE Urine WBC (Auto) 3 Urine RBC (Auto) 56 08/18/19 16:25 Tracheal Aspirate Gram Stain - Final 08/18/19 16:25 Tracheal Aspirate Sputum Culture - Final C.albicans/C.dubliniensis Normal Britni Absent Impressions: Carotid Doppler Study 08/19/19 00:00 IMPRESSION: Extensive atherosclerotic disease bilaterally. By the numbers, 50 to 69% stenosis in the left CCA and ICA. Status: Image reviewed by me Assessment & Plan - Diagnosis (1) Acute and chronic respiratory failure ([id number]) Qualifiers: Respiratory failure complication: hypercapnia Qualified Code(s): J96.22 - Acute and chronic respiratory failure with hypercapnia Is this a current diagnosis for this admission?: Yes (2) Atrial fibrillation Qualifiers: Atrial fibrillation type: longstanding persistent Qualified Code(s): I48.11 - Longstanding persistent atrial fibrillation Is this a current diagnosis for this admission?: Yes (3) Anemia Qualifiers: Anemia type: unspecified type Qualified Code(s): D64.9 - Anemia, unspecified Is this a current diagnosis for this admission?: Yes (4) Streptococcus pneumoniae pneumonia Qualifiers: Laterality: bilateral Lung location: unspecified part of lung Qualified Code(s): J13 - Pneumonia due to Streptococcus pneumoniae Is this a current diagnosis for this admission?: Yes (5) Haemophilus influenzae pneumonia Qualifiers: Laterality: bilateral Lung location: unspecified part of lung Qualified Code(s): J14 - Pneumonia due to Hemophilus influenzae Is this a current diagnosis for this admission?: Yes (6) Internal jugular vein thrombosis Qualifiers: Laterality: left Qualified Code(s): I82.C12 - Acute embolism and thrombosis of left internal jugular vein Is this a current diagnosis for this admission?: Yes (7) Enlarged lymph node in neck Is this a current diagnosis for this admission?: Yes - Time Time Spent with patient: 35 or more minutes Total Critical Time (Minutes): 45 Level of Care: ICU Medications reviewed and adjusted accordingly: Yes - Inpatient Certification Based on my medical assessment, after consideration of the patient's comorbidities, presenting symptoms, or acuity I expect that the services needed warrant INPATIENT care.: Yes I certify that my determination is in accordance with my understanding of Medicare's requirements for reasonable and necessary INPATIENT services [42 CFR 412.3e].: Yes Medical Necessity: Significant Comorbidiites Make Outpatient Treatment Too Risky, Need Close Monitoring Due to Risk of Patient Decompensation, Need For Continuous Telemetry Monitoring, Need for Nebulizer Therapy and Monitoring of Response, Need for IV Antibiotics, Risk of Complication if Not Cared For in Hospital, Risk of Diagnosis Which Will Require Inpatient Eval/Care/Monitoring - Plan Summary Plan Summary: 08.21.19: There are significant findings with this patient that lead me to suspect that she has an underlying malignancy. Now has a thrombotic occlusion of the left internal jugular in the same position of lymph node enlargement. She has thrombosis of the cephalic vein on the left arm. Given her degree of anemia and lack of any GI source I am suspicious that the anemia is related to malignancy. I have ordered a CT of the chest as the first step in evaluating this. Given the anatomical placement of the lymph node the most likely source is a malignancy of the lung. Given the situation above and her clot risk the standard of therapy is Lovenox. Currently studies are ongoing regarding use of NOAC therapy and it is now becoming a routine treatment for malignancy related thrombotic disorders. Given her social issues and not wishing for injection therapy we have elected to start NOAC therapy Patient will need to be transitioned to NOAC therapy when her INR is less than 2 and biopsies completed. Patient can be transitioned to downgrade to telemetry given her atrial fibrillation. He does have some degree of hypercapne in the morning and have ordered BiPAP for sleep. Spoke with her primary care physician, Dr. Morataya, who is excepted her to his service. Discussed the thrombosis of the neck and the need for further therapy. Had preliminary unofficial discussion with hematology/oncology but no official consult until further investigation are completed. Will need biopsy and suggest heparin therapy for now until that occurs. Will need to await reduction in INR. 08.20.19: Patient tolerated SBT and was successfully liberated from the ventilator. We will continue antibiotics for total of 7 days. He informs us that she is on CPAP at night and have ordered this. Oxygen dependent and a former smoker. She stopped smoking 3 years ago. She denies any recent manipulation of neck veins however did describe a fall a number of weeks ago. It is unknown known how long this clot has been there. Try to obtain records from her previous admissions at other hospitals to determine the chronicity of this clot. Had a lengthy discussion regarding her anticoagulation therapy. She is quite frustrated with the inconsistent INR's and the accusations that she is often not eating correctly or taking the drug correctly. She does have atrial fibrillation and has a clot in her neck vein. Had been on heparin however her INR continues to be elevated and I have discontinued this until her INR passively is reduced. We will then start NOAK therapy He has not had any bleeding while on heparin and/or warfarin while admitted in [facility] ICU. Will need further work-up as an outpatient. Given the degree of her anemia in the face of advanced COPD the anemia is of significant importance to be evaluated. Orders done or given are not always reflected by the timing of the placement in the chart. This patient requires critical care secondary to: Acute respiratory failure with need for mechanical ventilation Multidisciplinary rounds were done at bedside with attention to ABCD EF bundle compliance Medical power of county attorney is her daughter and sisters. They were updated at bedside 08.19.19: Patient has improved from a pulmonary and hemodynamic standpoint. Initially patient was diagnosed with acute kidney injury however this does not appear to be the case and has been deleted from her diagnostic records. She has a right carotid bruit with a left carotid endarterectomy scar. I have ordered a carotid ultrasound. Her chest x-ray has improved significantly and her labs are improved as well. On rounds she met suitability for the initiation of ventilator wean and this has begun. Her atrial fibrillation is controlled and we will need to be vigilant to make sure she has her oral medication before extubation. Her metabolic acidosis is from Diamox and I have discontinued this for now. Did receive a report that the patient has a possible left internal jugular thrombus. No IVs or central lines were placed. There is some suggestion that has free-floating components. obviously patient will need to be maintained on anticoagulation. There is a suggestion based on my visualization of the clot that this is chronic. We will attempt to get information from her previous surgeries for carotid disease. Patient did not tolerate full vent wean today and will reattempt in the morning. Continue treatment for Haemophilus influenza and Streptococcus pneumonia. 08.18.2019 Patient will be weaned off mechanical ventilation. Steroids have been adjusted. She does not wean we will start tube feeds. Check echocardiogram for pulmonary hypertension. Continue supportive care. For atrial fibrillation which is a known complication of significant pulmonary disease. Respiratory cultures positive for Haemophilus influenza and strep pneumoniae I have started the patient on azithromycin today prior to the culture data. ABG has significantly improved but she is not quite suitable for liberation from the ventilator. Started enteral calcium channel fadumo and increase metoprolol to 25 twice daily for her atrial fibrillation. Continue the warfarin however will need to be aware of any bleeding. She has had a low hemoglobin but no active bleeding. Her atrial fibrillation requires anticoagulation. We will have low threshold for conversion to heparin. Being said given her degree of COPD her anemia is significant and would expect a higher hemoglobin. Screening for hemolytic and destructive processes. 19: The care of the patient is a dynamic an ongoing process throughout the ICU. Events of the day are captured in a one-time note format in an attempt to describe the last 24 hours. Multidisciplinary rounds were carried out at bedside. ABCDEF Guidelines address ed for patient care. MPOA: Daughter and sisters. Code status: Full Patient requires ICU care secondary to acute respiratory failure with need for mechanical ventilation
[2019-08-21] MEDS: ATORVASTATIN CALCIUM 40 MG TABLET PO SCH (22:10)
[2019-08-21] MEDS: LATANOPROST 0.005% OPH SOLN 2.5 ML OU SCH (22:14)
[2019-08-22] MEDS: ALBUTEROL SULFATE 0.083% NEB 2.5 MG/3 ML AMPUL NEB SCH ×7 (00:33→23:59)
[2019-08-22] MEDS: DILTIAZEM HCL 30 MG TABLET PO SCH ×5 (01:27→23:04)
[2019-08-22] MEDS: OXYCODONE-ACETAMINOPHEN 5-325 MG TABLET PO PRN ×3 (04:04→21:49)
[2019-08-22] MEDS: GABAPENTIN 300 MG CAPSULE PO SCH ×3 (06:43→21:38)
[2019-08-22 07:31] LABS: HEMOGLOBIN 10.1 g/dL (12.0-15.5); MEAN CORPUSCULAR HEMOGLOBIN 28.2 pg (27.0-33.4); MEAN CORPUSCULAR HGB CONC 31.4 g/dL (32.0-36.0); MEAN CORPUSCULAR VOLUME 90 fl (80-97); PLATELET COUNT 251 10^3/uL (150-450); RED BLOOD COUNT 3.57 10^6/uL (3.72-5.28); RED CELL DISTRIBUTION WIDTH 22.6 % (11.5-14.0); WHITE BLOOD COUNT 14.3 10^3/uL (4.0-10.5)
[2019-08-22 07:41] LABS: INTERNATIONAL RATION (INR) 3.06; PROTHROMBIN TIME 32.3 SEC (11.4-15.4)
[2019-08-22 07:42] LABS: PARTIAL THROMBOPLASTIN TIME 65.5 SEC (23.5-35.8)
[2019-08-22 08:04] LABS: ANION GAP 7 (5-19); BLOOD UREA NITROGEN 10 mg/dL (7-20); CALCIUM 9.1 mg/dL (8.4-10.2); CARBON DIOXIDE 28 mmol/L (22-30); CHLORIDE 106 mmol/L (98-107); GLUCOSE 94 mg/dL (75-110); PHOSPHORUS 3.5 mg/dL (2.5-4.5); POTASSIUM 4.8 mmol/L (3.6-5.0)
[2019-08-22 08:31] LABS: ABSOLUTE LYMPHOCYTES# (MANUAL) 0.7 10^3/uL (0.5-4.7); ABSOLUTE MONOCYTES # (MANUAL) 1.4 10^3/uL (0.1-1.4); ANISOCYTOSIS 3+; BASOPHILS % (MANUAL) 0 % (0-2); EOSINOPHILS % (MANUAL) 1 % (0-6); LYMPHOCYTES % (MANUAL) 5 % (13-45); MONOCYTES % (MANUAL) 10 % (3-13); OVALOCYTES SLIGHT; PLATELET COMMENT ADEQUATE; SEGMENTED NEUTROPHILS % (MAN) 84 % (42-78); TOTAL CELLS COUNTED 100
[2019-08-22] MEDS: METOPROLOL TARTRATE 25 MG TABLET PO SCH ×2 (11:19→21:39)
[2019-08-22] MEDS: CITALOPRAM HYDROBROMIDE 20 MG TABLET PO SCH (11:19)
[2019-08-22] MEDS: DOCUSATE SODIUM 100 MG CAPSULE PO SCH (11:19)
[2019-08-22] MEDS: UMECLIDINIUM BROMIDE 62.5 MCG/DOSE IH SCH (11:20)
[2019-08-22] MEDS: FLUTICASONE/VILANTEROL 200-25 MCG/DOSE IH SCH (11:20)
[2019-08-22] MEDS: VALSARTAN 40 MG TABLET PO SCH (11:20)
[2019-08-22] MEDS: MULTIVITAMINS W-IRON TABLET, CHEWABLE PO SCH (11:41)
[2019-08-22] MEDS: CALCIUM CARBONATE 250 MG/VITAMIN D3 125 UNIT TABLET PO SCH (11:41)
[2019-08-22] MEDS: VENLAFAXINE HCL 75 MG TABLET PO SCH (11:41)
[2019-08-22] MEDS: AZITHROMYCIN 250 MG TABLET PO SCH (11:41)
[2019-08-22] MEDS: POTASSIUM CHLORIDE 20 MEQ PACKET PO SCH (15:17)
--- NOTE | 2019-08-22 16:47 | PDOC PROGRESS REPORT ---
Subjective Progress Note for:: 08/22/19 Subjective:: Patient continue to experience coughing spells with intermittent sputum production and associated chest pain with coughing episodes. No fever. No nausea, vomiting, or abdominal pain. Requested for restart of her home Protonix therapy. Expressed concern about upper extremities swelling and informed about blood clot in her neck. Reason For Visit: ACUTE EXACERBATION OF COPD ANEMIA WITH NEED FOR Physical Exam Vital Signs: Temp Pulse Resp BP Pulse Ox 98.0 F 70 16 138/63 H 94 08/22/19 11:34 08/22/19 15:44 08/22/19 15:44 08/22/19 11:34 08/22/19 15:44 Intake & Output 08/21/19 08/22/19 08/23/19 06:59 06:59 06:59 Intake Total 622 360 Output Total 940 925 Balance -318 -925 360 Weight 48 kg 47.4 kg General appearance: PRESENT: mild distress - remain on supplemental oxygen via nasal cannula, thin Head exam: PRESENT: atraumatic, normocephalic Eye exam: PRESENT: conjunctiva pink. ABSENT: scleral icterus Ear exam: PRESENT: normal external ear exam Mouth exam: PRESENT: moist Teeth exam: PRESENT: poor dentation Neck exam: PRESENT: lymphadenopathy - left supraclavicular fossa region Respiratory exam: PRESENT: clear to auscultation leslie - inspiratory phase, decreased breath sounds, rhonchi - expiratory phase Cardiovascular exam: PRESENT: irregular rhythm, +S1, +S2, systolic murmur - LLSB region. ABSENT: diastolic murmur, gallop Vascular exam: ABSENT: pallor GI/Abdominal exam: PRESENT: normal bowel sounds, soft. ABSENT: distended, guarding, mass, organolmegaly, rebound, tenderness Rectal exam: PRESENT: deferred Extremities exam: PRESENT: pedal edema - bilateral upper extremitiues, other - vascular access on legs Neurological exam: PRESENT: alert, awake, oriented to person, oriented to place, oriented to time, oriented to situation, CN II-XII grossly intact. ABSENT: motor sensory deficit Psychiatric exam: PRESENT: appropriate affect, normal mood. ABSENT: homicidal ideation, suicidal ideation Skin exam: PRESENT: dry, warm Results Laboratory Results: 08/22/19 07:17 08/22/19 07:17 08/22/19 08/22/19 07:17 07:17 WBC 14.3 H RBC 3.57 L Hgb 10.1 L Hct 32.0 L MCV 90 MCH 28.2 MCHC 31.4 L RDW 22.6 H Plt Count 251 Seg Neutrophils % Not Reportable Sodium 140.6 Potassium 4.8 Chloride 106 Carbon Dioxide 28 Anion Gap 7 BUN 10 Creatinine 0.73 Est GFR ( Amer) > 60 Glucose 94 Calcium 9.1 Phosphorus 3.5 Magnesium 1.7 Impressions: Carotid Doppler Study 08/19/19 00:00 IMPRESSION: Extensive atherosclerotic disease bilaterally. By the numbers, 50 to 69% stenosis in the left CCA and ICA. Venous Doppler Study 08/21/19 00:00 IMPRESSION: No right jugular lower pole upper extremity venous thrombosis Incompletely occlusive mixed echogenicity clot in the left internal jugular vein No flow is identified in the left arm cephalic vein which is diffusely small 3.8 x 3.6 x 3 cm soft tissue mass in the left supraclavicular region adjacent to the thrombosed IJ vein. This could represent an enlarged lymph node Chest X-Ray 08/21/19 06:00 IMPRESSION: Postextubation. Increase in pulmonary edema and pulmonary vascular congestion Small bilateral pleural effusions Assessment & Plan - Diagnosis (1) Anemia requiring transfusions Is this a current diagnosis for this admission?: Yes (2) COPD with exacerbation Is this a current diagnosis for this admission?: Yes (3) Chronic atrial fibrillation Is this a current diagnosis for this admission?: Yes (4) Chronic diastolic CHF (congestive heart failure) Is this a current diagnosis for this admission?: Yes (5) HLD (hyperlipidemia) Qualifiers: Hyperlipidemia type: unspecified Qualified Code(s): E78.5 - Hyperlipidemia, unspecified Is this a current diagnosis for this admission?: Yes (6) HTN (hypertension) Qualifiers: Hypertension type: essential hypertension Qualified Code(s): I10 - Essential (primary) hypertension Is this a current diagnosis for this admission?: Yes (7) Cephalic vein thrombosis, left Is this a current diagnosis for this admission?: Yes Plan: Continue to monitor her PT/INR response to indicate reinitiation of anticoagula tion therapy with Eliquis. (8) Enlarged lymph node in neck Is this a current diagnosis for this admission?: Yes Plan: Follow up on pending chest CT scan w/o contract which may be limited. (9) Internal jugular vein thrombosis Qualifiers: Laterality: left Qualified Code(s): I82.C12 - Acute embolism and thrombosis of left internal jugular vein Is this a current diagnosis for this admission?: Yes Plan: Continue to monitor her PT/INR response to indicate reinitiation of anticoagulation therapy with Eliquis. (10) Acute and chronic respiratory failure with hypoxia Is this a current diagnosis for this admission?: Yes Plan: Continue current medication management and oxygen supplementation. Overall prognosis remain guided. - Time Time Spent with patient: 35 or more minutes Level of Care: TELE Medications reviewed and adjusted accordingly: Yes Anticipated discharge: Home with Homehealth Within: Other - Inpatient Certification Based on my medical assessment, after consideration of the patient's comorbidities, presenting symptoms, or acuity I expect that the services needed warrant INPATIENT care.: Yes I certify that my determination is in accordance with my understanding of Medicare's requirements for reasonable and necessary INPATIENT services [42 CFR 412.3e].: Yes Medical Necessity: Significant Comorbidiites Make Outpatient Treatment Too Risky, Need Close Monitoring Due to Risk of Patient Decompensation, Need For Continuous Telemetry Monitoring, Need for Nebulizer Therapy and Monitoring of Response, Risk of Complication if Not Cared For in Hospital, Risk of Diagnosis Which Will Require Inpatient Eval/Care/Monitoring Post Hospital Care: D/C Visiting Housekeeper Documentation - Plan Summary Plan Summary: See attending physician orders for details about care plan.
[2019-08-22] MEDS: PANTOPRAZOLE SODIUM 40 MG TABLET.DR PO SCH (18:11)
[2019-08-22] MEDS: LATANOPROST 0.005% OPH SOLN 2.5 ML OU SCH (21:39)
[2019-08-22] MEDS: ATORVASTATIN CALCIUM 40 MG TABLET PO SCH (21:39)
[2019-08-23] MEDS: ALBUTEROL SULFATE 0.083% NEB 2.5 MG/3 ML AMPUL NEB SCH ×5 (04:07→19:40)
[2019-08-23 05:36] LABS: INTERNATIONAL RATION (INR) 2.01; PROTHROMBIN TIME 23.1 SEC (11.4-15.4)
[2019-08-23] MEDS: GABAPENTIN 300 MG CAPSULE PO SCH ×3 (05:45→21:17)
[2019-08-23] MEDS: PANTOPRAZOLE SODIUM 40 MG TABLET.DR PO SCH (05:48)
[2019-08-23] MEDS: DILTIAZEM HCL 30 MG TABLET PO SCH ×4 (05:48→23:47)
[2019-08-23] MEDS: CITALOPRAM HYDROBROMIDE 20 MG TABLET PO SCH (10:08)
[2019-08-23] MEDS: DOCUSATE SODIUM 100 MG CAPSULE PO SCH (10:08)
[2019-08-23] MEDS: POTASSIUM CHLORIDE 20 MEQ PACKET PO SCH (10:08)
[2019-08-23] MEDS: METOPROLOL TARTRATE 25 MG TABLET PO SCH ×2 (10:08→21:26)
[2019-08-23] MEDS: VALSARTAN 40 MG TABLET PO SCH (10:09)
[2019-08-23] MEDS: MULTIVITAMINS W-IRON TABLET, CHEWABLE PO SCH (10:09)
[2019-08-23] MEDS: VENLAFAXINE HCL 75 MG TABLET PO SCH (10:09)
[2019-08-23] MEDS: UMECLIDINIUM BROMIDE 62.5 MCG/DOSE IH SCH (10:10)
[2019-08-23] MEDS: CALCIUM CARBONATE 250 MG/VITAMIN D3 125 UNIT TABLET PO SCH (10:10)
[2019-08-23] MEDS: AZITHROMYCIN 250 MG TABLET PO SCH (10:10)
[2019-08-23] MEDS: FLUTICASONE/VILANTEROL 200-25 MCG/DOSE IH SCH (10:10)
[2019-08-23] MEDS: OXYCODONE-ACETAMINOPHEN 5-325 MG TABLET PO PRN ×2 (11:56→20:42)
--- NOTE | 2019-08-23 13:16 | RADIOLOGY REPORT (SQ) ---
EXAM DESCRIPTION: CT CHEST WITHOUT COMPLETED DATE/TIME: 08/23/2019 9:54 am REASON FOR STUDY: lymph node enlargement, lung cancer risk COMPARISON: CT angio chest 07/01/2018, CT chest with IV contrast 09/29/2017, 10/21/2013 Bilateral upper extremity venous Doppler 08/21/2019 TECHNIQUE: CT scan performed of the chest without intravenous contrast. Images reviewed with lung, soft tissue and bone windows. Reconstructed coronal and sagittal MPR images reviewed. All images st ored on PACS. All CT scanners at this facility use dose modulation, iterative reconstruction, and/or weight based d osing when appropriate to reduce radiation dose to as low as reasonably achievable (ALARA). [facility]: Dose Right [facility]: CareDose [facility]: Dose Right [facility]: Teradose 4D [facility]: [facility] RADIATION DOSE: CT Rad equipment meets quality standard of care and radiation dose reduction techniq ues were employed. CTDIvol: 5.4 mGy. DLP: 198 mGy-cm. mGy. LIMITATIONS: No IV contrast FINDINGS: LUNGS AND PLEURA: Bilateral pleural effusions are present with thickened interlobular sept a both lungs worrisome for fluid overload with mild interstitial edema. Multifocal areas of dense consolidation are present scattered throughout the upper lobes bilaterally, and the lower lobes. This could represent multifocal alveolar edema. Pneumonia is possible. Pulmo nary infarcts from pulmonary emboli could not be excluded. No pneumothorax HILAR AND MEDIASTINAL STRUCTURES: The multiple enlarged supraclavicular and mediastinal lymph nodes a re present as follows: 4.2 x 3 cm left supraclavicular mass probably intrinsically compression the left internal jugular vei n which is thrombosed on Doppler exam 08/21/2019. 1.7 x 1.3 cm right supraclavicular lymph node axial image / 3.5 x 3 cm right peritracheal lymph node axial image . This likely has mass effect on the super ior vena cava. CT currently is noncontrast. 2 x 2 cm sub- carinal lymph node axial image HEART AND VASCULAR STRUCTURES: No aneurysm. No pericardial effusion. Moderate cardiomegaly UPPER ABDOMEN: No significant findings. Limited exam. THYROID AND OTHER SOFT TISSUES: Old surgical clips right breast BONES: No significant finding. HARDWARE: None in the chest. OTHER: No other significant findings. IMPRESSION: Upper mediastinal adenopathy with mass-effect on venous structures, left internal jugula r vein is incompletely occluded with clot on Doppler exam 08/21/2019. Large right peritracheal lymph node in the upper mediastinum may have significant mass effect on the superior vena cava. Follow-up contrast CT is recommended Lung parenchyma abnormal, with probable alveolar and interstitial edema. Multifocal pneumonia versus pulmonary infarcts. Trace pleural effusions. TECHNICAL DOCUMENTATION: JOB ID: [id number] Quality ID # [id number]: Final reports with documentation of one or more dose reduction techniques (e.g., Au tomated exposure control, adjustment of the mA and/or kV according to patient size, use of iterative reconstruction technique) 2010 [employer]- All Rights Reserved Reading location - IP/workstation name: [email or web address]
--- NOTE | 2019-08-23 15:59 | PDOC PROGRESS REPORT ---
Subjective Progress Note for:: 08/23/19 Subjective:: Patient seen by the bedside, she was in ICU intubated now on the floor, CT chest was done without contrast earlier this morning, it demonstrated bilateral pleural effusions with thickened interlobular septa in both lungs worrisome for fluid overload. Multifocal areas of dense consolidation scattered throughout the upper lobes bilaterally in the lower lobes. Multiple enlarged supraclavicular and mediastinal lymph nodes, also demonstrated was a left supraclavicular mass. Unfortunately CTA was not done because of IV access challenges but this patient needs to have CT angiogram of the chest to further define or this lesion especially pulmonary embolism, neoplasm, she is high risk for these conditions. On this admission she had ultrasound of the neck she was diagnosed with thrombosis of internal jugular vein. She is presently only on azithromycin Reason For Visit: ACUTE EXACERBATION OF COPD ANEMIA WITH NEED FOR Physical Exam Vital Signs: Temp Pulse Resp BP Pulse Ox 97.4 F 105 H 18 111/91 H 89 L 08/23/19 12:30 08/23/19 12:30 08/23/19 11:15 08/23/19 12:30 08/23/19 12:30 Intake & Output 08/22/19 08/23/19 08/24/19 06:59 06:59 06:59 Intake Total 1060 Output Total 925 Balance -925 1060 Weight 47.4 kg 49.6 kg 49.6 kg General appearance: PRESENT: other - Patient is chronically ill looking Head exam: PRESENT: atraumatic, normocephalic Eye exam: PRESENT: PERRLA Ear exam: PRESENT: normal external ear exam Neck exam: PRESENT: full ROM, lymphadenopathy - I did not appreciate left supraclavicular lymph node enlargement on palpation that was described in the CAT scan Cardiovascular exam: PRESENT: RRR, +S1, +S2 Vascular exam: PRESENT: normal capillary refill GI/Abdominal exam: PRESENT: normal bowel sounds, soft Rectal exam: PRESENT: deferred Neurological exam: PRESENT: alert Psychiatric exam: PRESENT: appropriate affect, normal mood Skin exam: PRESENT: dry, intact, warm Results Laboratory Results: 08/22/19 07:17 08/22/19 07:17 Impressions: Carotid Doppler Study 08/19/19 00:00 IMPRESSION: Extensive atherosclerotic disease bilaterally. By the numbers, 50 to 69% stenosis in the left CCA and ICA. Venous Doppler Study 08/21/19 00:00 IMPRESSION: No right jugular lower pole upper extremity venous thrombosis Incompletely occlusive mixed echogenicity clot in the left internal jugular vein No flow is identified in the left arm cephalic vein which is diffusely small 3.8 x 3.6 x 3 cm soft tissue mass in the left supraclavicular region adjacent to the thrombosed IJ vein. This could represent an enlarged lymph node Chest X-Ray 08/21/19 06:00 IMPRESSION: Postextubation. Increase in pulmonary edema and pulmonary vascular congestion Small bilateral pleural effusions Chest CT 08/23/19 08:00 IMPRESSION: Upper mediastinal adenopathy with mass-effect on venous structures, left internal jugular vein is incompletely occluded with clot on Doppler exam 08/21/2019. Large right peritracheal lymph node in the upper mediastinum may have significant mass effect on the superior vena cava. Follow-up contrast CT is recommended Lung parenchyma abnormal, with probable alveolar and interstitial edema. Multifocal pneumonia versus pulmonary infarcts. Trace pleural effusions. Assessment & Plan - Diagnosis (1) Pneumonia due to Streptococcus pneumoniae Qualifiers: Laterality: bilateral Lung location: unspecified part of lung Qualified Code(s): J13 - Pneumonia due to Streptococcus pneumoniae Is this a current diagnosis for this admission?: Yes Plan: Continue present IV antibiotic (2) Acute embolism and thrombosis of unspecified internal jugular vein Qualifiers: Laterality: left Qualified Code(s): I82.C12 - Acute embolism and thrombosis of left internal jugular vein Is this a current diagnosis for this admission?: Yes Plan: Start Lovenox at 1 mg/kg body weight every 12 - Time Time Spent with patient: 35 or more minutes Level of Care: MEDICAL - Plan Summary Plan Summary: I explained the findings of the CAT scan for the patient's, she needs CT angiogram of the chest to rule out PE and define the other lesions in the lung
[2019-08-23] MEDS ORDERED: ENOXAPARIN SODIUM INJ 30 MG/0.3 ML DISP.SYRIN SUBCUT SCH (16:15)
[2019-08-23] MEDS: ENOXAPARIN SODIUM INJ 60 MG/0.6 ML DISP.SYRIN SUBCUT SCH (17:36)
[2019-08-23] MEDS: LATANOPROST 0.005% OPH SOLN 2.5 ML OU SCH (21:21)
[2019-08-23] MEDS: ATORVASTATIN CALCIUM 40 MG TABLET PO SCH (21:26)
[2019-08-24] MEDS: ALBUTEROL SULFATE 0.083% NEB 2.5 MG/3 ML AMPUL NEB SCH ×6 (00:02→19:44)
[2019-08-24 05:39] LABS: INTERNATIONAL RATION (INR) 1.59; PROTHROMBIN TIME 19.1 SEC (11.4-15.4)
[2019-08-24] MEDS: PANTOPRAZOLE SODIUM 40 MG TABLET.DR PO SCH (05:54)
[2019-08-24] MEDS: DILTIAZEM HCL 30 MG TABLET PO SCH ×3 (05:54→18:07)
[2019-08-24] MEDS: ENOXAPARIN SODIUM INJ 60 MG/0.6 ML DISP.SYRIN SUBCUT SCH (05:54)
[2019-08-24] MEDS: GABAPENTIN 300 MG CAPSULE PO SCH ×3 (05:55→21:44)
[2019-08-24] MEDS: OXYCODONE-ACETAMINOPHEN 5-325 MG TABLET PO PRN ×2 (09:40→18:14)
[2019-08-24] MEDS: UMECLIDINIUM BROMIDE 62.5 MCG/DOSE IH SCH (09:41)
[2019-08-24] MEDS: FLUTICASONE/VILANTEROL 200-25 MCG/DOSE IH SCH (09:41)
[2019-08-24] MEDS: MULTIVITAMINS W-IRON TABLET, CHEWABLE PO SCH (09:42)
[2019-08-24] MEDS: CITALOPRAM HYDROBROMIDE 20 MG TABLET PO SCH (10:00)
[2019-08-24] MEDS: CALCIUM CARBONATE 250 MG/VITAMIN D3 125 UNIT TABLET PO SCH (10:00)
[2019-08-24] MEDS: AZITHROMYCIN 250 MG TABLET PO SCH (10:00)
[2019-08-24] MEDS: VENLAFAXINE HCL 75 MG TABLET PO SCH (10:00)
[2019-08-24] MEDS: POTASSIUM CHLORIDE 20 MEQ PACKET PO SCH (10:00)
[2019-08-24] MEDS: DOCUSATE SODIUM 100 MG CAPSULE PO SCH (10:00)
[2019-08-24] MEDS: VALSARTAN 40 MG TABLET PO SCH (11:39)
[2019-08-24] MEDS: METOPROLOL TARTRATE 25 MG TABLET PO SCH ×2 (11:41→21:45)
--- NOTE | 2019-08-24 15:22 | PDOC PROGRESS REPORT ---
Subjective Progress Note for:: 08/24/19 Subjective:: Patient seen by the bedside, she was in ICU intubated now on the floor, CT chest was done without contrast earlier this morning, it demonstrated bilateral pleural effusions with thickened interlobular septa in both lungs worrisome for fluid overload. Multifocal areas of dense consolidation scattered throughout the upper lobes bilaterally in the lower lobes. Multiple enlarged supraclavicular and mediastinal lymph nodes, also demonstrated was a left supraclavicular mass. Unfortunately CTA was not done because of IV access challenges but this patient needs to have CT angiogram of the chest to further define or this lesion especially pulmonary embolism, neoplasm, she is high risk for these conditions. On this admission she had ultrasound of the neck she was diagnosed with thrombosis of internal jugular vein. She is presently only on azithromycin Reason For Visit: ACUTE EXACERBATION OF COPD ANEMIA WITH NEED FOR Physical Exam Vital Signs: Temp Pulse Resp BP Pulse Ox 98.3 F 114 H 20 98/40 L 96 08/24/19 11:37 08/24/19 11:37 08/24/19 11:37 08/24/19 11:37 08/24/19 11:37 Intake & Output 08/23/19 08/24/19 08/25/19 06:59 06:59 06:59 Intake Total 1060 696 237 Balance 1060 696 237 Weight 49.6 kg 56 kg General appearance: PRESENT: no acute distress Eye exam: PRESENT: PERRLA Respiratory exam: PRESENT: rhonchi Cardiovascular exam: PRESENT: +S1, +S2 GI/Abdominal exam: PRESENT: soft Neurological exam: PRESENT: alert, CN II-XII grossly intact Results Laboratory Results: 08/22/19 07:17 08/22/19 07:17 Impressions: Carotid Doppler Study 08/19/19 00:00 IMPRESSION: Extensive atherosclerotic disease bilaterally. By the numbers, 50 to 69% stenosis in the left CCA and ICA. Venous Doppler Study 08/21/19 00:00 IMPRESSION: No right jugular lower pole upper extremity venous thrombosis Incompletely occlusive mixed echogenicity clot in the left internal jugular vein No flow is identified in the left arm cephalic vein which is diffusely small 3.8 x 3.6 x 3 cm soft tissue mass in the left supraclavicular region adjacent to the thrombosed IJ vein. This could represent an enlarged lymph node Chest X-Ray 08/21/19 06:00 IMPRESSION: Postextubation. Increase in pulmonary edema and pulmonary vascular congestion Small bilateral pleural effusions Chest CT 08/23/19 08:00 IMPRESSION: Upper mediastinal adenopathy with mass-effect on venous structures, left internal jugular vein is incompletely occluded with clot on Doppler exam 08/21/2019. Large right peritracheal lymph node in the upper mediastinum may have significant mass effect on the superior vena cava. Follow-up contrast CT is recommended Lung parenchyma abnormal, with probable alveolar and interstitial edema. Multifocal pneumonia versus pulmonary infarcts. Trace pleural effusions. Assessment & Plan - Diagnosis (1) Pneumonia due to Streptococcus pneumoniae Qualifiers: Laterality: bilateral Lung location: unspecified part of lung Qualified Code(s): J13 - Pneumonia due to Streptococcus pneumoniae Is this a current diagnosis for this admission?: Yes Plan: She had a CAT scan of the chest without contrast, the findings were abnormal she needs to have a contrasted CT scan specifically CT of the chest to rule out pulmonary embolism and also neoplasm unfortunately IV access was a challenge this weekend, she will have PICC line tomorrow and also CTA tomorrow after PICC line is inserted. Continue PO azithromycin (2) Acute embolism and thrombosis of unspecified internal jugular vein Qualifiers: Laterality: left Qualified Code(s): I82.C12 - Acute embolism and thrombosis of left internal jugular vein Is this a current diagnosis for this admission?: Yes Plan: She was started on Lovenox 1 mg/kg body weight every 12 hours yesterday, she will continue present treatment - Time Time Spent with patient: 35 or more minutes Level of Care: IMCU - Plan Summary Plan Summary: I explained all this to patient and family, they seems to show understanding of medical situation/condition
[2019-08-24] MEDS: APIXABAN 5 MG TABLET PO SCH (18:11)
[2019-08-24] MEDS: ATORVASTATIN CALCIUM 40 MG TABLET PO SCH (21:45)
[2019-08-24] MEDS: LATANOPROST 0.005% OPH SOLN 2.5 ML OU SCH (21:45)
[2019-08-25] MEDS: ALBUTEROL SULFATE 0.083% NEB 2.5 MG/3 ML AMPUL NEB SCH ×6 (00:50→21:09)
[2019-08-25] MEDS: DILTIAZEM HCL 30 MG TABLET PO SCH ×4 (01:04→17:49)
[2019-08-25 05:49] LABS: HEMATOCRIT 33.2 % (36.0-47.0); HEMOGLOBIN 10.5 g/dL (12.0-15.5); MEAN CORPUSCULAR HEMOGLOBIN 28.1 pg (27.0-33.4); MEAN CORPUSCULAR HGB CONC 31.5 g/dL (32.0-36.0); MEAN CORPUSCULAR VOLUME 89 fl (80-97); PLATELET COUNT 295 10^3/uL (150-450); RED BLOOD COUNT 3.72 10^6/uL (3.72-5.28); RED CELL DISTRIBUTION WIDTH 21.9 % (11.5-14.0); WHITE BLOOD COUNT 12.2 10^3/uL (4.0-10.5)
[2019-08-25 05:57] LABS: INTERNATIONAL RATION (INR) 1.87; PROTHROMBIN TIME 21.8 SEC (11.4-15.4)
[2019-08-25] MEDS: PANTOPRAZOLE SODIUM 40 MG TABLET.DR PO SCH (06:07)
[2019-08-25] MEDS: OXYCODONE-ACETAMINOPHEN 5-325 MG TABLET PO PRN ×2 (06:07→17:55)
[2019-08-25] MEDS: GABAPENTIN 300 MG CAPSULE PO SCH ×3 (06:08→22:14)
--- NOTE | 2019-08-25 10:47 | RADIOLOGY REPORT (SQ) ---
EXAM DESCRIPTION: PICC INSERTION; U/S GUIDE FOR VASCULAR ACCESS COMPLETED DATE/TIME: 08/25/2019 10:02 am; 08/25/2019 10:03 am REASON FOR STUDY: iv ACCESS; IV ACCESS COMPARISON: CT chest 08/23/2019 FLUOROSCOPY TIME: 24 seconds 1 fluoroscopic and 1 ultrasound images saved to PACS. TECHNIQUE: Fluoroscopic and ultrasound guided PICC placement. LIMITATIONS: None. PROCEDURE: After written consent and assessment were obtained, the patient was brought into the fluo roscopy room and placed supine on the table. Ultrasound evaluation of potential access sites were per formed. After successfully identifying a patent left basilic vein, the left arm was prepped and drape d in a sterile fashion along with the ultrasound probe. The entry site was anesthetized with 1% lidoc moses. A 21 gauge 7 cm needle was advanced through the skin and into the basilic vein under live ultra sound guidance. An ultrasound image was saved to PACS confirming access site. A .018 guide wire was then inserted through the needle and into the venous system. The needle was then removed and an 11 b lade scalpel was used to make a 1cm skin incision. A 5 fr peel-away sheath was advanced over the wir e and into the venous system. A measurement was then made using the existing wire and live fluoroscop ic guidance. The wire was then removed and trimmed. The PICC was advanced through the peel-away sheat h and into the venous system. The peel-away sheath was removed and the catheter was adhered to the pa tients arm with a stat lock. The catheter was then aspirated and flushed and a sterile bandage was pl aced over the access site. A fluoroscopic spot image was saved to PACS confirming the catheter tip w ithin the superior vena cava. IMPRESSION: SUCCESSFUL PLACEMENT OF A 5 FR DUAL LUMEN 27 CM PICC IN THE LEFT BASILIC VEIN. COMMENT: Patient medication list reviewed: Yes- Quality ID# 130:Eligible professional attests to doc umenting in the medical record they obtained, updated, or reviewed the patient's current medications. . Quality ID 145: Final reports for procedures using fluoroscopy that document radiation exposure mendoza daniel, or exposure time and number of fluorographic images (if radiation exposure indices are not avail able) Quality ID #76: The patient was prepped and draped using maximum sterile barrier technique including cap, mask, sterile gown, sterile gloves, a large sterile sheet, hand hygiene, and 2% Chlorhexidine fo r cutaneous antisepsis. When ultrasound is used, sterile ultrasound techniques are followed requiring sterile gel and sterile probes. TECHNICAL DOCUMENTATION: JOB ID: [id number] [employer]- All Rights Reserved rev-02/22 Reading location - IP/workstation name: [email or web address]ENTER[facility]undo
[2019-08-25] MEDS: CITALOPRAM HYDROBROMIDE 20 MG TABLET PO SCH (10:56)
[2019-08-25] MEDS: APIXABAN 5 MG TABLET PO SCH ×2 (10:56→17:52)
[2019-08-25] MEDS: FLUTICASONE/VILANTEROL 200-25 MCG/DOSE IH SCH (10:57)
[2019-08-25] MEDS: UMECLIDINIUM BROMIDE 62.5 MCG/DOSE IH SCH (10:57)
[2019-08-25] MEDS: VALSARTAN 40 MG TABLET PO SCH (10:58)
[2019-08-25] MEDS: CALCIUM CARBONATE 250 MG/VITAMIN D3 125 UNIT TABLET PO SCH (10:58)
[2019-08-25] MEDS: AZITHROMYCIN 250 MG TABLET PO SCH (10:58)
[2019-08-25] MEDS: POTASSIUM CHLORIDE 20 MEQ PACKET PO SCH (10:59)
[2019-08-25] MEDS: MULTIVITAMINS W-IRON TABLET, CHEWABLE PO SCH ×2 (11:07→11:20)
--- NOTE | 2019-08-25 11:13 | RADIOLOGY REPORT (SQ) ---
EXAM DESCRIPTION: CTA CHEST COMPLETED DATE/TIME: 08/25/2019 10:16 am REASON FOR STUDY: suspect PE,neoplasm (PICC Line before CT) COMPARISON: Carotid Doppler 08/19/2019 CT chest 08/23/2019, 07/01/2018, 09/29/2017, 06/10/2017 TECHNIQUE: CT scan of the chest performed using helical scanning technique with dynamic intravenous contrast injection. Images reviewed with lung, soft tissue and bone windows. Reconstructed coronal and sagittal MPR images reviewed. Additional 3 dimensional post-processing performed to develop Maximal Intensity Projection images (IL P). All images stored on PACS. All CT scanners at this facility use dose modulation, iterative reconstruction, and/or weight based d osing when appropriate to reduce radiation dose to as low as reasonably achievable (ALARA). [facility]: Dose Right [facility]: CareDose [facility]: Dose Right [facility]: Teradose 4D [facility]: SocialEars CONTRAST TYPE AND DOSE: contrast/concentration: Isovue 350.00 mg/ml; Total Contrast Delivered: 50.0 ml; Total Saline Delivered: 76.0 ml Contrast bolus optimized for the pulmonary arteries and thoracic aorta. RENAL FUNCTION: Creatinine 0.7 RADIATION DOSE: CT Rad equipment meets quality standard of care and radiation dose reduction techniq ues were employed. CTDIvol: 6.7 - 7.5 mGy. DLP: 293 mGy-cm. . LIMITATIONS: None. FINDINGS: LUNGS AND PLEURA: Multifocal dense lung parenchymal consolidation persists in the upper lo bes and lower lobes bilaterally. Since the prior CT 08/23/2019, further collapse and consolidation o f the lower lobes has occurred. There is slight increase in bilateral pleural effusions compared to 08/23/2019, small pleural effusio ns are present left greater than right. No pneumothorax. Airways are patent. AORTA AND GREAT VESSELS: No CT angio evidence of acute emboli to the pulmonary arteries. There is no thoracic aortic dissection. Diffuse atherosclerotic irregularity of the descending thora cic aorta is present. There is poor contrast enhancement of the right common carotid artery on axial images 13 through 23. At the upper most edge of the field of view, no contrast enhancement along the right carotid bifurca tion/distal common carotid artery is seen. Patient may have clot in the right carotid system. This finding was called to Dr Morataya, stat carotid Doppler will be performed for followup. HEART: No pericardial effusion. Moderate coronary artery calcifications. PULMONARY ARTERIES: No emboli visualized in the main pulmonary arteries or the segmental branches. HILAR AND MEDIASTINAL STRUCTURES: Adenopathy is present, overall stable compared to 08/23/2019 as fol lows: 4.2 x 3 cm left supraclavicular mass causing left jugular vein inclusion, best shown on axial image 2 0 1.7 x 1.3 cm right supraclavicular lymph node on axial image 14 1.5 x 1.4 cm right supraclavicular lymph node axial image 19 (better seen today due to IV contrast) 4.4 x 3 cm right peritracheal mass image 39 with mass effect on the superior vena cava 2.6 x 2 cm sub- carinal lymph node axial image 54 HARDWARE: Left PICC line tip superior vena cava UPPER ABDOMEN: No significant findings. Limited exam. THYROID AND OTHER SOFT TISSUES: No masses. No adenopathy. BONES: No acute or significant finding. 3D MIPS: Confirm above findings. OTHER: No other significant finding. IMPRESSION: Poor contrast enhancement of the proximal right common carotid artery. Findings could i ndicate thrombosis/stenosis. Findings discussed with attending physician, follow-up carotid Doppler will be performed shortly Malignant appearing mediastinal adenopathy Further collapse and consolidation of the bilateral lower lobes compared to 08/23/2019. Small pleural effusions are slightly increased compared to 08/23/2019 COMMENT: Quality ID # 436: Final reports with documentation of one or more dose reduction techniques (e.g., Automated exposure control, adjustment of the mA and/or kV according to patient size, use of iterative reconstruction technique) TECHNICAL DOCUMENTATION: JOB ID: [id number] [employer]- All Rights Reserved Reading location - IP/workstation name: [email or web address]
[2019-08-25] MEDS: VENLAFAXINE HCL 75 MG TABLET PO SCH (11:17)
[2019-08-25] MEDS: DOCUSATE SODIUM 100 MG CAPSULE PO SCH (11:17)
[2019-08-25] MEDS: METOPROLOL TARTRATE 25 MG TABLET PO SCH ×2 (11:17→22:12)
--- NOTE | 2019-08-25 13:45 | RADIOLOGY REPORT (SQ) ---
EXAM DESCRIPTION: FLUORO/CV PLACEMENT COMPLETE DATE/TIME: 08/25/2019 10:02 am REASON FOR STUDY: IV ACCESS FINDINGS: Please see combined report for performance of procedure and radiologic supervision and int erpretation. IMPRESSION: Please see combined report for performance of procedure and radiologic supervision and i nterpretation. Reading location - IP/workstation name: [email or web address]
--- NOTE | 2019-08-25 16:38 | RADIOLOGY REPORT (SQ) ---
EXAM DESCRIPTION: CAROTID DOPPLER COMPLETED DATE/TIME: 08/25/2019 4:04 pm REASON FOR STUDY: Right CC occlusion COMPARISON: 08/19/2019 and 06/02/2013 TECHNIQUE: Grayscale ultrasound, Doppler velocity and spectra, and color Doppler images acquired of the extra-cranial carotid and vertebral arteries. Images stored on PACS. LIMITATIONS: None. FINDINGS: RIGHT CAROTID CCA Velocities: The proximal common carotid velocities are measured at 36.5 centimeters/second. ICA Velocities Peak systolic occluded. End diastolic occluded. Proximal ICA/CCA peak systolic ratio N/A. The proximal common carotid artery demonstrate mixed plaque. Near occlusive plaque is seen within th e right carotid bulb. The internal carotid artery demonstrates complete occlusion antegrade flow was present within the right vertebral artery. LEFT CAROTID CCA Velocities: Elevated at 261 centimeters/second (greater than 70% occlusion) ICA Velocities Peak systolic 200 in 3 cm/s. End diastolic 30.6 cm/s. Proximal ICA/CCA peak systolic ratio 0.78. Spectra normal. No significant plaque. VERTEBRAL ARTERIES: Anterograde flow noting increased velocities within the left vertebral artery (13 6 centimeters/second) SUBCLAVIAN ARTERIES: Not imaged. OTHER: No other significant finding. IMPRESSION: Complete occlusion of the right internal carotid artery with near complete occlusion of the carotid bulb. Greater than 70% stenosis of the left common carotid artery on the basis of mixed plaque. 50 to 69% occlusion of the left internal carotid artery on the basis of mixed plaque. Hudson manasa left vertebral artery velocities. COMMENT: Critical findings identified at 1620 hours. Neither the tong nor the ordering provider wer e reachable by phone. An addendum will be placed when findings are communicated. Quality ID #195: Velocity criteria are extrapolated from the diameter data as defined by the Society of Radiologists in Ultrasound Consensus Conference. Radiology 2003: 229; 340-346. TECHNICAL DOCUMENTATION: JOB ID: [id number] [employer]- All Rights Reserved Reading location - IP/workstation name: [email or web address]
[2019-08-25] MEDS: ATORVASTATIN CALCIUM 40 MG TABLET PO SCH (22:12)
[2019-08-25] MEDS: NORMAL SALINE 10 ML SDV (SCHEDULED) IV SCH (22:13)
[2019-08-25] MEDS: LATANOPROST 0.005% OPH SOLN 2.5 ML OU SCH (22:13)
--- NOTE | 2019-08-25 23:42 | PDOC PROGRESS REPORT ---
Subjective Progress Note for:: 08/25/19 Subjective:: Patient reported generalized body aches and pain. Breathing remain fair and denied any unusual chest pain. No nausea, vomiting, or abdominal pain. Requested advancement of her diet. There is continued intermittent productive coughing spells. No fever or chills. I discussed her CT chest findings with Dr Matta, radiologist. Patient has history of bilateral carotid end arterectomies. Reason For Visit: ACUTE EXACERBATION OF COPD ANEMIA WITH NEED FOR Physical Exam Vital Signs: Temp Pulse Resp BP Pulse Ox 98.9 F 80 20 95/62 L 90 L 08/25/19 15:16 08/25/19 15:16 08/25/19 15:16 08/25/19 15:16 08/25/19 15:16 Pulse Oximeter Continuous Start: 08/25/19 05:32 Freq: RTQ4 Status: Active Protocol: Document 08/25/19 12:53 [facility] [place] (Rec: 08/25/19 13:10 [facility] [place] [id number]) Pulse Oximetry Assessment Oxygen Saturation (92-100) 95 Oxygen Flow Rate (L/min) 4 Oxygen Delivery Method Nasal Cannula Fraction of Inspired Oxygen (FIO2) 36 Equipment Usage Equipment in Use Continuous SpO2 Machine # N 7 Intake & Output 08/24/19 08/25/19 08/26/19 06:59 06:59 06:59 Intake Total 696 1310 Balance 696 1310 Weight 56 kg 59.2 kg Physical Exam: General appearance: PRESENT: mild distress - remain on supplemental oxygen via nasal cannula, thin Head exam: PRESENT: atraumatic, normocephalic Eye exam: PRESENT: conjunctiva pink. ABSENT: pallor, scleral icterus Ear exam: PRESENT: normal external ear exam Mouth exam: PRESENT: moist Teeth exam: PRESENT: poor dentition Neck exam: PRESENT: lymphadenopathy - left supraclavicular fossa region Respiratory exam: PRESENT: clear to auscultation leslie - inspiratory phase, decreased breath sounds, rhonchi - expiratory phase Cardiovascular exam: PRESENT: irregular rhythm, +S1, +S2, systolic murmur - LLSB region. ABSENT: diastolic murmur, gallop GI/Abdominal exam: PRESENT: normal bowel sounds, soft. ABSENT: distended, guarding, mass, organolmegaly, rebound, tenderness Rectal exam: PRESENT: deferred Extremities exam: PRESENT: pedal edema - bilateral upper extremitiues, other - vascular access on legs Neurological exam: PRESENT: alert, awake, oriented to person, oriented to place, oriented to time, oriented to situation, CN II-XII grossly intact. ABSENT: motor sensory deficit Psychiatric exam: PRESENT: appropriate affect, normal mood. ABSENT: homicidal ideation, suicidal ideation Skin exam: PRESENT: dry, warm Results Laboratory Results: 08/25/19 05:19 08/22/19 07:17 08/25/19 05:19 WBC 12.2 H RBC 3.72 Hgb 10.5 L Hct 33.2 L MCV 89 MCH 28.1 MCHC 31.5 L RDW 21.9 H Plt Count 295 Impressions: Venous Doppler Study 08/21/19 00:00 IMPRESSION: No right jugular lower pole upper extremity venous thrombosis Incompletely occlusive mixed echogenicity clot in the left internal jugular vein No flow is identified in the left arm cephalic vein which is diffusely small 3.8 x 3.6 x 3 cm soft tissue mass in the left supraclavicular region adjacent to the thrombosed IJ vein. This could represent an enlarged lymph node Chest X-Ray 08/21/19 06:00 IMPRESSION: Postextubation. Increase in pulmonary edema and pulmonary vascular congestion Small bilateral pleural effusions Chest CT 08/23/19 08:00 IMPRESSION: Upper mediastinal adenopathy with mass-effect on venous structures, left internal jugular vein is incompletely occluded with clot on Doppler exam 08/21/2019. Large right peritracheal lymph node in the upper mediastinum may have significant mass effect on the superior vena cava. Follow-up contrast CT is recommended Lung parenchyma abnormal, with probable alveolar and interstitial edema. Multifocal pneumonia versus pulmonary infarcts. Trace pleural effusions. Carotid Doppler Study 08/25/19 00:00 IMPRESSION: Complete occlusion of the right internal carotid artery with near complete occlusion of the carotid bulb. Greater than 70% stenosis of the left common carotid artery on the basis of mixed plaque. 50 to 69% occlusion of the left internal carotid artery on the basis of mixed plaque. Elevated left vertebral artery velocities. Chest/Abdomen CTA 08/25/19 00:00 IMPRESSION: Poor contrast enhancement of the proximal right common carotid artery. Findings could indicate thrombosis/stenosis. Findings discussed with attending physician, follow-up carotid Doppler will be performed shortly Malignant appearing mediastinal adenopathy Further collapse and consolidation of the bilateral lower lobes compared to 08/23/2019. Small pleural effusions are slightly increased compared to 08/23/2019 Guidance Fluoroscopy 08/25/19 00:00 IMPRESSION: Please see combined report for performance of procedure and radiologic supervision and interpretation. Interventional Vascular Procedure 08/25/19 00:00 IMPRESSION: SUCCESSFUL PLACEMENT OF A 5 FR DUAL LUMEN 27 CM PICC IN THE LEFT BASILIC VEIN. PICC Line Insertion 08/25/19 00:00 IMPRESSION: SUCCESSFUL PLACEMENT OF A 5 FR DUAL LUMEN 27 CM PICC IN THE LEFT BASILIC VEIN. Assessment & Plan - Diagnosis (1) Anemia requiring transfusions Is this a current diagnosis for this admission?: Yes (2) COPD with exacerbation Is this a current diagnosis for this admission?: Yes (3) Chronic atrial fibrillation Is this a current diagnosis for this admission?: Yes (4) Chronic diastolic CHF (congestive heart failure) Is this a current diagnosis for this admission?: Yes (5) HLD (hyperlipidemia) Qualifiers: Hyperlipidemia type: unspecified Qualified Code(s): E78.5 - Hyperlipidemia, unspecified Is this a current diagnosis for this admission?: Yes (6) HTN (hypertension) Qualifiers: Hypertension type: essential hypertension Qualified Code(s): I10 - Essential (primary) hypertension Is this a current diagnosis for this admission?: Yes (7) Cephalic vein thrombosis, left Is this a current diagnosis for this admission?: Yes (8) Enlarged lymph node in neck Is this a current diagnosis for this admission?: Yes (9) Internal jugular vein thrombosis Qualifiers: Laterality: left Qualified Code(s): I82.C12 - Acute embolism and thrombosis of left internal jugular vein Is this a current diagnosis for this admission?: Yes (10) Acute and chronic respiratory failure with hypoxia Is this a current diagnosis for this admission?: Yes (11) Bilateral stenosis of carotid arteries greater than 50% Is this a current diagnosis for this admission?: Yes Plan: Noted above carotid artery ultra sound findings noted. In view of her surgical history, morbidities, and overall poor prognosis I will discuss her case in telephone conference with vascular surgeon for further intervention. She will continue Eliquis therapy at this time. (12) Lymphadenopathy, mediastinal Is this a current diagnosis for this admission?: Yes Plan: As per chest CT with contrast findings and her morbidities , consideration include malignant process. Lung lesion biopsy approach appears possibly difficult due to her morbidities. I will discuss with radiologist if her left supraclavicular adenopathy lesion is accessible to biopsy for possible diagnosis of her chest CT findings. (13) Lymphadenopathy, supraclavicular Is this a current diagnosis for this admission?: Yes Plan: As per chest CT with contrast findings and her morbidities , consideration include malignant process. I will discuss with radiologist if left supraclavicular adenopathy lesion is accessible to biopsy for possible diagnosis of her chest CT findings. - Time Time Spent with patient: 35 or more minutes Level of Care: IMCU Medications reviewed and adjusted accordingly: Yes Anticipated discharge: Home with Homehealth Within: Other - Inpatient Certification Based on my medical assessment, after consideration of the patient's comorbidities, presenting symptoms, or acuity I expect that the services needed warrant INPATIENT care.: Yes I certify that my determination is in accordance with my understanding of Medicare's requirements for reasonable and necessary INPATIENT services [42 CFR 412.3e].: Yes Medical Necessity: Significant Comorbidiites Make Outpatient Treatment Too Ri axel, Need Close Monitoring Due to Risk of Patient Decompensation, Need For Continuous Telemetry Monitoring, Need for Nebulizer Therapy and Monitoring of Response, Need for Pain Control, Risk of Complication if Not Cared For in Hospital, Risk of Diagnosis Which Will Require Inpatient Eval/Care/Monitoring Post Hospital Care: D/C Anesthesia Director Documentation - Plan Summary Plan Summary: See attending physician orders for details about care plan.
[2019-08-26] MEDS: ALBUTEROL SULFATE 0.083% NEB 2.5 MG/3 ML AMPUL NEB SCH ×7 (00:48→23:38)
[2019-08-26] MEDS: DILTIAZEM HCL 30 MG TABLET PO SCH ×6 (01:31→23:39)
[2019-08-26] MEDS: GABAPENTIN 300 MG CAPSULE PO SCH ×3 (05:29→21:15)
[2019-08-26] MEDS: PANTOPRAZOLE SODIUM 40 MG TABLET.DR PO SCH (05:30)
[2019-08-26 07:27] LABS: ARTERIAL BLOOD H2CO3 1.76 mmol/L (1.05-1.35); ARTERIAL BLOOD HCO3 38.2 mmol/L (20-24); ARTERIAL BLOOD O2 SATURATION 72.2 % (94-98); ARTERIAL BLOOD PCO2 58.4 mmHg (35-45); ARTERIAL BLOOD PH 7.43 (7.35-7.45); ARTERIAL BLOOD TOTAL CO2 39.9 mmol/L (21-25)
[2019-08-26 07:31] LABS: ARTERIAL BLOOD FIO2 7L
--- NOTE | 2019-08-26 08:40 | PDOC PROGRESS REPORT ---
Subjective Progress Note for:: 08/26/19 Subjective:: Patient had episode of persistent hypoxemia despite use of non-invasive assistance. She denied any chest pain. Patient and daughter are elusive with regard to the extent of care at this time. I requested for ICU consultation for acute hypoxemic respiratory failure and possible need for invasive ventilatory support. Reason For Visit: ACUTE EXACERBATION OF COPD ANEMIA WITH NEED FOR Physical Exam Vital Signs: Temp Pulse Resp BP Pulse Ox 98.6 F 102 H 23 H 120/42 L 76 L 08/25/19 20:49 08/26/19 07:00 08/26/19 06:50 08/26/19 06:50 08/26/19 06:50 Pulse Oximeter Continuous Start: 08/25/19 05:32 Freq: RTQ4 Status: Active Protocol: Document 08/26/19 04:25 [facility] (Rec: 08/26/19 04:37 [facility] [id number]) Pulse Oximetry Assessment Oxygen Saturation (92-100) 97 Oxygen Flow Rate (L/min) 6 Oxygen Delivery Method Bi-pap Fraction of Inspired Oxygen (FIO2) 44 Equipment Usage Equipment in Use Continuous SpO2 Machine # 7 Intake & Output 08/25/19 08/26/19 08/27/19 06:59 06:59 06:59 Intake Total 1310 Balance 1310 Weight 59.2 kg 58.9 kg Physical Exam: General appearance: PRESENT: mild distress - remain on BiPAP support with supplemental oxygen, thin Head exam: PRESENT: atraumatic, normocephalic Eye exam: PRESENT: conjunctiva pink. ABSENT: pallor, scleral icterus Ear exam: PRESENT: normal external ear exam Mouth exam: PRESENT: moist Teeth exam: PRESENT: poor dentition Neck exam: PRESENT: lymphadenopathy - left supraclavicular fossa region Respiratory exam: PRESENT: clear to auscultation leslie - inspiratory phase, decreased breath sounds, rhonchi - expiratory phase Cardiovascular exam: PRESENT: irregular rhythm, +S1, +S2, systolic murmur - LLSB region. ABSENT: diastolic murmur, gallop GI/Abdominal exam: PRESENT: normal bowel sounds, soft. ABSENT: distended, guarding, mass, organomegaly, rebound, tenderness Rectal exam: PRESENT: deferred Extremities exam: PRESENT: pedal edema - bilateral upper extremities, other - vascular access on legs Neurological exam: PRESENT: alert, awake, oriented to person, oriented to place, oriented to time, oriented to situation, CN II-XII grossly intact. ABSENT: motor sensory deficit Psychiatric exam: PRESENT: appropriate affect, normal mood. ABSENT: homicidal ideation, suicidal ideation Skin exam: PRESENT: dry, warm Results Laboratory Results: 08/25/19 05:19 08/22/19 07:17 08/26/19 07:00 Carbonic Acid 1.76 H HCO3/H2CO3 Ratio 21:1 ABG pH 7.43 ABG pCO2 58.4 H ABG pO2 38.0 L* ABG HCO3 38.2 H ABG O2 Saturation 72.2 L ABG Base Excess 12.0 FiO2 7L Impressions: Venous Doppler Study 08/21/19 00:00 IMPRESSION: No right jugular lower pole upper extremity venous thrombosis Incompletely occlusive mixed echogenicity clot in the left internal jugular vein No flow is identified in the left arm cephalic vein which is diffusely small 3.8 x 3.6 x 3 cm soft tissue mass in the left supraclavicular region adjacent to the thrombosed IJ vein. This could represent an enlarged lymph node Chest X-Ray 08/21/19 06:00 IMPRESSION: Postextubation. Increase in pulmonary edema and pulmonary vascular congestion Small bilateral pleural effusions Chest CT 08/23/19 08:00 IMPRESSION: Upper mediastinal adenopathy with mass-effect on venous structures, left internal jugular vein is incompletely occluded with clot on Doppler exam 08/21/2019. Large right peritracheal lymph node in the upper mediastinum may have significant mass effect on the superior vena cava. Follow-up contrast CT is recommended Lung parenchyma abnormal, with probable alveolar and interstitial edema. Multifocal pneumonia versus pulmonary infarcts. Trace pleural effusions. Carotid Doppler Study 08/25/19 00:00 IMPRESSION: Complete occlusion of the right internal carotid artery with near complete occlusion of the carotid bulb. Greater than 70% stenosis of the left common carotid artery on the basis of mixed plaque. 50 to 69% occlusion of the left internal carotid artery on the basis of mixed plaque. Elevated left vertebral artery velocities. Chest/Abdomen CTA 08/25/19 00:00 IMPRESSION: Poor contrast enhancement of the proximal right common carotid artery. Findings could indicate thrombosis/stenosis. Findings discussed with attending physician, follow-up carotid Doppler will be performed shortly Malignant appearing mediastinal adenopathy Further collapse and consolidation of the bilateral lower lobes compared to 08/23/2019. Small pleural effusions are slightly increased compared to 08/23/2019 Guidance Fluoroscopy 08/25/19 00:00 IMPRESSION: Please see combined report for performance of procedure and radiologic supervision and interpretation. Interventional Vascular Procedure 08/25/19 00:00 IMPRESSION: SUCCESSFUL PLACEMENT OF A 5 FR DUAL LUMEN 27 CM PICC IN THE LEFT BASILIC VEIN. PICC Line Insertion 08/25/19 00:00 IMPRESSION: SUCCESSFUL PLACEMENT OF A 5 FR DUAL LUMEN 27 CM PICC IN THE LEFT BASILIC VEIN. Assessment & Plan - Diagnosis (1) Anemia requiring transfusions Is this a current diagnosis for this admission?: Yes (2) COPD with exacerbation Is this a current diagnosis for this admission?: Yes (3) Chronic atrial fibrillation Is this a current diagnosis for this admission?: Yes (4) Chronic diastolic CHF (congestive heart failure) Is this a current diagnosis for this admission?: Yes (5) HLD (hyperlipidemia) Qualifiers: Hyperlipidemia type: unspecified Qualified Code(s): E78.5 - Hyperlipidemia, unspecified Is this a current diagnosis for this admission?: Yes (6) HTN (hypertension) Qualifiers: Hypertension type: essential hypertension Qualified Code(s): I10 - Essential (primary) hypertension Is this a current diagnosis for this admission?: Yes (7) Cephalic vein thrombosis, left Is this a current diagnosis for this admission?: Yes (8) Enlarged lymph node in neck Is this a current diagnosis for this admission?: Yes (9) Internal jugular vein thrombosis Qualifiers: Laterality: left Qualified Code(s): I82.C12 - Acute embolism and thrombosis of left internal jugular vein Is this a current diagnosis for this admission?: Yes (10) Acute and chronic respiratory failure with hypoxia Is this a current diagnosis for this admission?: Yes Plan: We will continue NIPPV support. Repeat ABG on substitute BiPAP machine. If patient remain hypoxemic, further discussion regarding intubation will be held with patient and family. (11) Bilateral stenosis of carotid arteries greater than 50% Is this a current diagnosis for this admission?: Yes Plan: Her current acute situation supersede possible intervention at this time. (12) Lymphadenopathy, mediastinal Is this a current diagnosis for this admission?: Yes Plan: Her current acute situation supersede possible intervention at this time. (13) Lymphadenopathy, supraclavicular Is this a current diagnosis for this admission?: Yes Plan: Her current acute situation supersede possible intervention at this time. - Time Time Spent with patient: 35 or more minutes Level of Care: IMCU Medications reviewed and adjusted accordingly: Yes Anticipated discharge: Other Within: Other - Inpatient Certification Based on my medical assessment, after consideration of the patient's comorbidities, presenting symptoms, or acuity I expect that the services needed warrant INPATIENT care.: Yes I certify that my determination is in accordance with my understanding of Medicare's requirements for reasonable and necessary INPATIENT services [42 CFR 412.3e].: Yes Medical Necessity: Significant Comorbidiites Make Outpatient Treatment Too Risky, Need Close Monitoring Due to Risk of Patient Decompensation, Need For Continuous Telemetry Monitoring, Need for Nebulizer Therapy and Monitoring of Response, Risk of Complication if Not Cared For in Hospital, Risk of Diagnosis Which Will Require Inpatient Eval/Care/Monitoring Post Hospital Care: D/C Intelligence Officer Documentation - Plan Summary Plan Summary: Continue all current management intervention. Follow up on pending ABG reevaluation and possible ICU transfer. Patient remain a full code pending patient and family decision on this issue. Overall prognosis is very poor in view of her morbidities.
[2019-08-26] MEDS: METOPROLOL TARTRATE 25 MG TABLET PO SCH ×2 (10:00→21:17)
[2019-08-26] MEDS: VENLAFAXINE HCL 75 MG TABLET PO SCH (10:00)
[2019-08-26] MEDS: VALSARTAN 40 MG TABLET PO SCH (10:01)
[2019-08-26] MEDS: APIXABAN 5 MG TABLET PO SCH ×2 (10:02→17:38)
[2019-08-26] MEDS: AZITHROMYCIN 250 MG TABLET PO SCH (10:02)
[2019-08-26] MEDS: UMECLIDINIUM BROMIDE 62.5 MCG/DOSE IH SCH (10:02)
[2019-08-26] MEDS: FLUTICASONE/VILANTEROL 200-25 MCG/DOSE IH SCH (10:03)
[2019-08-26] MEDS: CITALOPRAM HYDROBROMIDE 20 MG TABLET PO SCH (10:04)
[2019-08-26] MEDS: NORMAL SALINE 10 ML SDV (SCHEDULED) IV SCH ×2 (10:16→21:16)
[2019-08-26] MEDS: POTASSIUM CHLORIDE 20 MEQ PACKET PO SCH (10:17)
[2019-08-26] MEDS: MULTIVITAMINS W-IRON TABLET, CHEWABLE PO SCH (10:17)
[2019-08-26 10:51] LABS: ARTERIAL BLOOD BASE EXCESS 9.5 mmol/L; ARTERIAL BLOOD H2CO3 1.76 mmol/L (1.05-1.35); ARTERIAL BLOOD PCO2 58.6 mmHg (35-45); ARTERIAL BLOOD PH 7.41 (7.35-7.45); ARTERIAL BLOOD PO2 92.9 mmHg (80-100); ARTERIAL BLOOD TOTAL CO2 37.8 mmol/L (21-25)
[2019-08-26 10:57] LABS: ARTERIAL BLOOD FIO2 50%
[2019-08-26] MEDS: OXYCODONE-ACETAMINOPHEN 5-325 MG TABLET PO PRN ×2 (12:41→21:18)
[2019-08-26] MEDS: CALCIUM CARBONATE 250 MG/VITAMIN D3 125 UNIT TABLET PO SCH (17:37)
[2019-08-26] MEDS: DOCUSATE SODIUM 100 MG CAPSULE PO SCH (17:38)
[2019-08-26] MEDS: ATORVASTATIN CALCIUM 40 MG TABLET PO SCH (21:18)
[2019-08-26] MEDS: LATANOPROST 0.005% OPH SOLN 2.5 ML OU SCH (23:46)
[2019-08-27] MEDS: ALBUTEROL SULFATE 0.083% NEB 2.5 MG/3 ML AMPUL NEB SCH ×5 (03:44→20:23)
[2019-08-27] MEDS: GABAPENTIN 300 MG CAPSULE PO SCH ×3 (05:42→21:36)
[2019-08-27] MEDS: PANTOPRAZOLE SODIUM 40 MG TABLET.DR PO SCH (05:48)
[2019-08-27] MEDS: DILTIAZEM HCL 30 MG TABLET PO SCH ×3 (05:48→18:11)
[2019-08-27 06:07] LABS: HEMATOCRIT 31.2 % (36.0-47.0); HEMOGLOBIN 10.1 g/dL (12.0-15.5); MEAN CORPUSCULAR HEMOGLOBIN 28.7 pg (27.0-33.4); MEAN CORPUSCULAR HGB CONC 32.2 g/dL (32.0-36.0); MEAN CORPUSCULAR VOLUME 89 fl (80-97); PLATELET COUNT 309 10^3/uL (150-450); RED BLOOD COUNT 3.51 10^6/uL (3.72-5.28); WHITE BLOOD COUNT 12.6 10^3/uL (4.0-10.5)
[2019-08-27] MEDS: CALCIUM CARBONATE 250 MG/VITAMIN D3 125 UNIT TABLET PO SCH (09:28)
[2019-08-27] MEDS: DOCUSATE SODIUM 100 MG CAPSULE PO SCH (09:28)
[2019-08-27] MEDS: AZITHROMYCIN 250 MG TABLET PO SCH (09:28)
[2019-08-27] MEDS: POTASSIUM CHLORIDE 20 MEQ PACKET PO SCH ×2 (09:28→09:36)
[2019-08-27] MEDS: METOPROLOL TARTRATE 25 MG TABLET PO SCH ×2 (09:29→21:39)
[2019-08-27] MEDS: APIXABAN 5 MG TABLET PO SCH ×2 (09:29→18:11)
[2019-08-27] MEDS: OXYCODONE-ACETAMINOPHEN 5-325 MG TABLET PO PRN ×2 (09:29→18:22)
[2019-08-27] MEDS: CITALOPRAM HYDROBROMIDE 20 MG TABLET PO SCH (09:29)
[2019-08-27] MEDS: MULTIVITAMINS W-IRON TABLET, CHEWABLE PO SCH (09:29)
[2019-08-27] MEDS: VENLAFAXINE HCL 75 MG TABLET PO SCH (09:29)
[2019-08-27] MEDS: VALSARTAN 40 MG TABLET PO SCH (09:29)
[2019-08-27] MEDS: NORMAL SALINE 10 ML SDV (AFTER EACH USE) IV PRN (09:31)
[2019-08-27] MEDS: NORMAL SALINE 10 ML SDV (SCHEDULED) IV SCH ×2 (09:31→21:40)
[2019-08-27] MEDS: FLUTICASONE/VILANTEROL 200-25 MCG/DOSE IH SCH (10:22)
[2019-08-27] MEDS: UMECLIDINIUM BROMIDE 62.5 MCG/DOSE IH SCH (10:22)
--- NOTE | 2019-08-27 18:03 | PDOC PROGRESS REPORT ---
Subjective Progress Note for:: 08/27/19 Subjective:: Off BiPAP support and tolerating nasal cannula supplemental oxygen. No chest pain. No fever or chills. No nausea or vomiting. No abdominal pain. Reason For Visit: ACUTE EXACERBATION OF COPD ANEMIA WITH NEED FOR Physical Exam Vital Signs: Temp Pulse Resp BP Pulse Ox 97.3 F 78 17 119/43 L 94 08/27/19 15:43 08/27/19 15:43 08/27/19 15:43 08/27/19 15:43 08/27/19 15:43 Pulse Oximeter Continuous Start: 08/25/19 05:32 Freq: RTQ4 Status: Active Protocol: Document 08/27/19 13:12 [facility] (Rec: 08/27/19 13:30 [facility] [id number]) Additional RT Notes Other Patient's oxygen was reduced to 4lpm NC Pulse Oximetry Assessment Oxygen Saturation (92-100) 97 Oxygen Flow Rate (L/min) 5 Oxygen Delivery Method Nasal Cannula Equipment Usage Equipment in Use Continuous SpO2 Machine # 11 Intake & Output 08/26/19 08/27/19 08/28/19 06:59 06:59 06:59 Intake Total 260 225 Balance 260 225 Weight 58.9 kg 58.9 kg Physical Exam: General appearance: PRESENT: mild distress - remain on nasal cannula supplemental oxygen, thin Head exam: PRESENT: atraumatic, normocephalic Eye exam: PRESENT: conjunctiva pink. ABSENT: pallor, scleral icterus Ear exam: PRESENT: normal external ear exam Mouth exam: PRESENT: moist Teeth exam: PRESENT: poor dentition Neck exam: PRESENT: lymphadenopathy - left supraclavicular fossa region Respiratory exam: PRESENT: decreased breath sounds, minimal rhonchi - expiratory phase Cardiovascular exam: PRESENT: irregular rhythm, +S1, +S2, systolic murmur - LLSB region. ABSENT: diastolic murmur, gallop GI/Abdominal exam: PRESENT: normal bowel sounds, soft. ABSENT: distended, guarding, mass, organomegaly, rebound, tenderness Extremities exam: PRESENT: pedal edema - bilateral upper extremities, PICC line access left arm Neurological exam: PRESENT: alert, awake, oriented to person, oriented to place, oriented to time, oriented to situation, CN II-XII grossly intact. ABSENT: motor sensory deficit Psychiatric exam: PRESENT: appropriate affect, normal mood. ABSENT: homicidal ideation, suicidal ideation Skin exam: PRESENT: dry, warm Results Laboratory Results: 08/27/19 05:33 08/22/19 07:17 08/27/19 05:33 WBC 12.6 H RBC 3.51 L Hgb 10.1 L Hct 31.2 L MCV 89 MCH 28.7 MCHC 32.2 RDW 22.0 H Plt Count 309 Impressions: Venous Doppler Study 08/21/19 00:00 IMPRESSION: No right jugular lower pole upper extremity venous thrombosis Incompletely occlusive mixed echogenicity clot in the left internal jugular vein No flow is identified in the left arm cephalic vein which is diffusely small 3.8 x 3.6 x 3 cm soft tissue mass in the left supraclavicular region adjacent to the thrombosed IJ vein. This could represent an enlarged lymph node Chest X-Ray 08/21/19 06:00 IMPRESSION: Postextubation. Increase in pulmonary edema and pulmonary vascular congestion Small bilateral pleural effusions Chest CT 08/23/19 08:00 IMPRESSION: Upper mediastinal adenopathy with mass-effect on venous structures, left internal jugular vein is incompletely occluded with clot on Doppler exam 08/21/2019. Large right peritracheal lymph node in the upper mediastinum may have significant mass effect on the superior vena cava. Follow-up contrast CT is recommended Lung parenchyma abnormal, with probable alveolar and interstitial edema. Multifocal pneumonia versus pulmonary infarcts. Trace pleural effusions. Carotid Doppler Study 08/25/19 00:00 IMPRESSION: Complete occlusion of the right internal carotid artery with near complete occlusion of the carotid bulb. Greater than 70% stenosis of the left common carotid artery on the basis of mixed plaque. 50 to 69% occlusion of the left internal carotid artery on the basis of mixed plaque. Elevated left vertebral artery velocities. Chest/Abdomen CTA 08/25/19 00:00 IMPRESSION: Poor contrast enhancement of the proximal right common carotid artery. Findings could indicate thrombosis/stenosis. Findings discussed with attending physician, follow-up carotid Doppler will be performed shortly Malignant appearing mediastinal adenopathy Further collapse and consolidation of the bilateral lower lobes compared to 08/23/2019. Small pleural effusions are slightly increased compared to 08/23/2019 Guidance Fluoroscopy 08/25/19 00:00 IMPRESSION: Please see combined report for performance of procedure and radiologic supervision and interpretation. Interventional Vascular Procedure 08/25/19 00:00 IMPRESSION: SUCCESSFUL PLACEMENT OF A 5 FR DUAL LUMEN 27 CM PICC IN THE LEFT BASILIC VEIN. PICC Line Insertion 08/25/19 00:00 IMPRESSION: SUCCESSFUL PLACEMENT OF A 5 FR DUAL LUMEN 27 CM PICC IN THE LEFT BASILIC VEIN. Assessment & Plan - Diagnosis (1) Anemia requiring transfusions Is this a current diagnosis for this admission?: Yes (2) COPD with exacerbation Is this a current diagnosis for this admission?: Yes (3) Chronic atrial fibrillation Is this a current diagnosis for this admission?: Yes (4) Chronic diastolic CHF (congestive heart failure) Is this a current diagnosis for this admission?: Yes (5) HLD (hyperlipidemia) Qualifiers: Hyperlipidemia type: unspecified Qualified Code(s): E78.5 - Hyperlipidemia, unspecified Is this a current diagnosis for this admission?: Yes (6) HTN (hypertension) Qualifiers: Hypertension type: essential hypertension Qualified Code(s): I10 - Essential (primary) hypertension Is this a current diagnosis for this admission?: Yes (7) Cephalic vein thrombosis, left Is this a current diagnosis for this admission?: Yes (8) Enlarged lymph node in neck Is this a current diagnosis for this admission?: Yes (9) Internal jugular vein thrombosis Qualifiers: Laterality: left Qualified Code(s): I82.C12 - Acute embolism and thrombosis of left internal jugular vein Is this a current diagnosis for this admission?: Yes (10) Acute and chronic respiratory failure with hypoxia Is this a current diagnosis for this admission?: Yes (11) Bilateral stenosis of carotid arteries greater than 50% Is this a current diagnosis for this admission?: Yes (12) Lymphadenopathy, mediastinal Is this a current diagnosis for this admission?: Yes (13) Lymphadenopathy, supraclavicular Is this a current diagnosis for this admission?: Yes - Time Time Spent with patient: 25-34 minutes Level of Care: TELE Medications reviewed and adjusted accordingly: Yes Anticipated discharge: Home with Homehealth Within: Other - Inpatient Certification Based on my medical assessment, after consideration of the patient's comorbidities, presenting symptoms, or acuity I expect that the services needed warrant INPATIENT care.: Yes I certify that my determination is in accordance with my understanding of Medicare's requirements for reasonable and necessary INPATIENT services [42 CFR 412.3e].: Yes Medical Necessity: Significant Comorbidiites Make Outpatient Treatment Too Risky, Need Close Monitoring Due to Risk of Patient Decompensation, Need For Continuous Telemetry Monitoring, Need for Nebulizer Therapy and Monitoring of Response, Risk of Complication if Not Cared For in Hospital, Risk of Diagnosis Which Will Require Inpatient Eval/Care/Monitoring Post Hospital Care: D/C Buffet Manager Documentation - Plan Summary Plan Summary: Continue current medication management. Follow up n pulmonary consultation when Dr. Ruiz resume service. Further discussion with interventional radiology team regarding possible left supraclavicular lymph node biopsy.
[2019-08-27] MEDS: LATANOPROST 0.005% OPH SOLN 2.5 ML OU SCH (21:39)
[2019-08-27] MEDS: ATORVASTATIN CALCIUM 40 MG TABLET PO SCH (21:39)
[2019-08-28] MEDS: DILTIAZEM HCL 30 MG TABLET PO SCH ×4 (00:14→17:42)
[2019-08-28] MEDS: ALBUTEROL SULFATE 0.083% NEB 2.5 MG/3 ML AMPUL NEB SCH ×6 (00:41→21:07)
[2019-08-28] MEDS: GABAPENTIN 300 MG CAPSULE PO SCH ×3 (05:46→21:29)
[2019-08-28] MEDS: PANTOPRAZOLE SODIUM 40 MG TABLET.DR PO SCH (05:56)
[2019-08-28] MEDS: OXYCODONE-ACETAMINOPHEN 5-325 MG TABLET PO PRN ×2 (08:04→18:55)
[2019-08-28] MEDS: MULTIVITAMINS W-IRON TABLET, CHEWABLE PO SCH ×2 (10:42→10:55)
[2019-08-28] MEDS: APIXABAN 5 MG TABLET PO SCH ×2 (10:42→17:42)
[2019-08-28] MEDS: METOPROLOL TARTRATE 25 MG TABLET PO SCH ×2 (10:42→21:27)
[2019-08-28] MEDS: DOCUSATE SODIUM 100 MG CAPSULE PO SCH (10:42)
[2019-08-28] MEDS: VALSARTAN 40 MG TABLET PO SCH (10:42)
[2019-08-28] MEDS: CITALOPRAM HYDROBROMIDE 20 MG TABLET PO SCH (10:43)
[2019-08-28] MEDS: UMECLIDINIUM BROMIDE 62.5 MCG/DOSE IH SCH (10:43)
[2019-08-28] MEDS: FLUTICASONE/VILANTEROL 200-25 MCG/DOSE IH SCH (10:43)
[2019-08-28] MEDS: VENLAFAXINE HCL 75 MG TABLET PO SCH (10:43)
[2019-08-28] MEDS: CALCIUM CARBONATE 250 MG/VITAMIN D3 125 UNIT TABLET PO SCH (10:43)
[2019-08-28] MEDS: AZITHROMYCIN 250 MG TABLET PO SCH (10:43)
[2019-08-28] MEDS: NORMAL SALINE 10 ML SDV (SCHEDULED) IV SCH ×2 (10:44→21:29)
[2019-08-28] MEDS: NORMAL SALINE 10 ML SDV (AFTER EACH USE) IV PRN (10:44)
[2019-08-28] MEDS: POTASSIUM CHLORIDE 20 MEQ PACKET PO SCH ×2 (17:42→17:45)
--- NOTE | 2019-08-28 19:06 | PDOC PROGRESS REPORT ---
Subjective Progress Note for:: 08/28/19 Subjective:: Patient participated in PT session earlier today with significant oxygen desaturation into the 60% range. No chest pain. No fever or chills. No nausea or vomiting. No abdominal pain. She continue to refuse Gabapentin and Potassium supplementation. Reason For Visit: ACUTE EXACERBATION OF COPD ANEMIA WITH NEED FOR Physical Exam Vital Signs: Temp Pulse Resp BP Pulse Ox 99 F 91 20 112/53 L 93 08/28/19 08:00 08/28/19 08:00 08/28/19 08:00 08/28/19 08:00 08/28/19 08:00 Pulse Oximeter Continuous Start: 08/25/19 05:32 Freq: RTQ4 Status: Active Protocol: Document 08/28/19 03:57 [facility] (Rec: 08/28/19 04:25 [facility] [email or web address]) Pulse Oximetry Assessment Oxygen Saturation (92-100) 95 Oxygen Flow Rate (L/min) 3.5 Oxygen Delivery Method Nasal Cannula Fraction of Inspired Oxygen (FIO2) 36 Equipment Usage Equipment in Use Continuous SpO2 Machine # 11 Intake & Output 08/27/19 08/28/19 08/29/19 06:59 06:59 06:59 Intake Total 260 535 Output Total 50 Balance 260 485 Weight 58.9 kg 48.4 kg Physical Exam: General appearance: PRESENT: mild distress - remain on nasal cannula supplementa l oxygen, thin Head exam: PRESENT: atraumatic, normocephalic Eye exam: PRESENT: conjunctiva pink. ABSENT: pallor, scleral icterus Ear exam: PRESENT: normal external ear exam Mouth exam: PRESENT: moist Teeth exam: PRESENT: poor dentition Neck exam: PRESENT: lymphadenopathy - left supraclavicular fossa region Respiratory exam: PRESENT: decreased breath sounds, audible rhonchi - expiratory phase Cardiovascular exam: PRESENT: irregular rhythm, +S1, +S2, systolic murmur - LLSB region. ABSENT: diastolic murmur, gallop GI/Abdominal exam: PRESENT: normal bowel sounds, soft. ABSENT: distended, guard ing, mass, organomegaly, rebound, tenderness Extremities exam: PRESENT: pedal edema - bilateral upper extremities, PICC line access left arm Neurological exam: PRESENT: alert, awake, oriented to person, oriented to place, oriented to time, oriented to situation, CN II-XII grossly intact. ABSENT: mo tor sensory deficit Psychiatric exam: PRESENT: appropriate affect, normal mood. ABSENT: homicidal i deation, suicidal ideation Skin exam: PRESENT: dry, warm Results Laboratory Results: 08/27/19 05:33 08/22/19 07:17 Impressions: Venous Doppler Study 08/21/19 00:00 IMPRESSION: No right jugular lower pole upper extremity venous thrombosis Incompletely occlusive mixed echogenicity clot in the left internal jugular vein No flow is identified in the left arm cephalic vein which is diffusely small 3.8 x 3.6 x 3 cm soft tissue mass in the left supraclavicular region adjacent to the thrombosed IJ vein. This could represent an enlarged lymph node Chest X-Ray 08/21/19 06:00 IMPRESSION: Postextubation. Increase in pulmonary edema and pulmonary vascular congestion Small bilateral pleural effusions Chest CT 08/23/19 08:00 IMPRESSION: Upper mediastinal adenopathy with mass-effect on venous structures, left internal jugular vein is incompletely occluded with clot on Doppler exam 08/21/2019. Large right peritracheal lymph node in the upper mediastinum may have significant mass effect on the superior vena cava. Follow-up contrast CT is recommended Lung parenchyma abnormal, with probable alveolar and interstitial edema. Multifocal pneumonia versus pulmonary infarcts. Trace pleural effusions. Carotid Doppler Study 08/25/19 00:00 IMPRESSION: Complete occlusion of the right internal carotid artery with near complete occlusion of the carotid bulb. Greater than 70% stenosis of the left common carotid artery on the basis of mixed plaque. 50 to 69% occlusion of the left internal carotid artery on the basis of mixed plaque. Elevated left vertebral artery velocities. Chest/Abdomen CTA 08/25/19 00:00 IMPRESSION: Poor contrast enhancement of the proximal right common carotid artery. Findings could indicate thrombosis/stenosis. Findings discussed with attending physician, follow-up carotid Doppler will be performed shortly Malignant appearing mediastinal adenopathy Further collapse and consolidation of the bilateral lower lobes compared to 08/23/2019. Small pleural effusions are slightly increased compared to 08/23/2019 Guidance Fluoroscopy 08/25/19 00:00 IMPRESSION: Please see combined report for performance of procedure and radiologic supervision and interpretation. Interventional Vascular Procedure 08/25/19 00:00 IMPRESSION: SUCCESSFUL PLACEMENT OF A 5 FR DUAL LUMEN 27 CM PICC IN THE LEFT BASILIC VEIN. PICC Line Insertion 11/18/19 00:00 IMPRESSION: SUCCESSFUL PLACEMENT OF A 5 FR DUAL LUMEN 27 CM PICC IN THE LEFT BASILIC VEIN. Assessment & Plan - Diagnosis (1) Anemia requiring transfusions Is this a current diagnosis for this admission?: Yes (2) COPD with exacerbation Is this a current diagnosis for this admission?: Yes (3) Chronic atrial fibrillation Is this a current diagnosis for this admission?: Yes (4) Chronic diastolic CHF (congestive heart failure) Is this a current diagnosis for this admission?: Yes (5) HLD (hyperlipidemia) Qualifiers: Hyperlipidemia type: unspecified Qualified Code(s): E78.5 - Hyperlipidemia, unspecified Is this a current diagnosis for this admission?: Yes (6) HTN (hypertension) Qualifiers: Hypertension type: essential hypertension Qualified Code(s): I10 - Essential (primary) hypertension Is this a current diagnosis for this admission?: Yes (7) Cephalic vein thrombosis, left Is this a current diagnosis for this admission?: Yes (8) Enlarged lymph node in neck Is this a current diagnosis for this admission?: Yes (9) Internal jugular vein thrombosis Qualifiers: Laterality: left Qualified Code(s): I82.C12 - Acute embolism and thrombosis of left internal jugular vein Is this a current diagnosis for this admission?: Yes (10) Acute and chronic respiratory failure with hypoxia Is this a current diagnosis for this admission?: Yes (11) Bilateral stenosis of carotid arteries greater than 50% Is this a current diagnosis for this admission?: Yes (12) Lymphadenopathy, mediastinal Is this a current diagnosis for this admission?: Yes (13) Lymphadenopathy, supraclavicular Is this a current diagnosis for this admission?: Yes (14) Laryngeal candidiasis Is this a current diagnosis for this admission?: Yes Plan: Start on oral Diflucan therapy. - Time Time Spent with patient: 25-34 minutes Level of Care: TELE Medications reviewed and adjusted accordingly: Yes Anticipated discharge: Home with Homehealth, SNF, Acute Rehab Within: Other - Inpatient Certification Based on my medical assessment, after consideration of the patient's comorbidities, presenting symptoms, or acuity I expect that the services needed warrant INPATIENT care.: Yes I certify that my determination is in accordance with my understanding of Medicare's requirements for reasonable and necessary INPATIENT services [42 CFR 412.3e].: Yes Medical Necessity: Significant Comorbidiites Make Outpatient Treatment Too Risky, Need Close Monitoring Due to Risk of Patient Decompensation, Need For Continuous Telemetry Monitoring, Risk of Complication if Not Cared For in Hospital, Risk of Diagnosis Which Will Require Inpatient Eval/Care/Monitoring Post Hospital Care: D/C Metal [employer]er [employer] Documentation - Plan Summary Plan Summary: Continue current medication management. She is off Azithromycin coverage after day # 7. Follow up on pulmonary consultation and interventional radiologist for possible left supraclavicular soft tissue biopsy. Patient will need to be off Eliquis for couple of days prior to the biopsy. We may consider thoracentesis with fluid cytology for possible diagnosis regarding CTA chest / Abdomen findings. Overall prognosis remain poor.
[2019-08-28] MEDS ORDERED: BISACODYL 10 MG SUPP.RECT PR ONE (20:30)
[2019-08-28] MEDS: ATORVASTATIN CALCIUM 40 MG TABLET PO SCH (21:27)
[2019-08-28] MEDS: LATANOPROST 0.005% OPH SOLN 2.5 ML OU SCH (21:29)
[2019-08-28] MEDS: FLUCONAZOLE 100 MG TABLET PO SCH (21:30)
[2019-08-29] MEDS: ALBUTEROL SULFATE 0.083% NEB 2.5 MG/3 ML AMPUL NEB SCH ×7 (00:04→23:23)
[2019-08-29] MEDS: DILTIAZEM HCL 30 MG TABLET PO SCH ×4 (00:25→18:17)
[2019-08-29] MEDS: GABAPENTIN 300 MG CAPSULE PO SCH ×3 (05:24→22:51)
[2019-08-29] MEDS: OXYCODONE-ACETAMINOPHEN 5-325 MG TABLET PO PRN ×3 (06:31→23:36)
[2019-08-29] MEDS: PANTOPRAZOLE SODIUM 40 MG TABLET.DR PO SCH (06:31)
[2019-08-29 06:48] LABS: HEMATOCRIT 30.7 % (36.0-47.0); HEMOGLOBIN 9.6 g/dL (12.0-15.5); MEAN CORPUSCULAR HEMOGLOBIN 28.4 pg (27.0-33.4); MEAN CORPUSCULAR HGB CONC 31.2 g/dL (32.0-36.0); MEAN CORPUSCULAR VOLUME 91 fl (80-97); PLATELET COUNT 304 10^3/uL (150-450); RED BLOOD COUNT 3.38 10^6/uL (3.72-5.28); RED CELL DISTRIBUTION WIDTH 21.8 % (11.5-14.0); WHITE BLOOD COUNT 12.8 10^3/uL (4.0-10.5)
[2019-08-29] MEDS: FLUTICASONE/VILANTEROL 200-25 MCG/DOSE IH SCH (11:12)
[2019-08-29] MEDS: UMECLIDINIUM BROMIDE 62.5 MCG/DOSE IH SCH (11:12)
[2019-08-29] MEDS: POTASSIUM CHLORIDE 20 MEQ PACKET PO SCH (11:12)
[2019-08-29] MEDS: VENLAFAXINE HCL 75 MG TABLET PO SCH (11:13)
[2019-08-29] MEDS: APIXABAN 5 MG TABLET PO SCH ×2 (11:13→18:10)
[2019-08-29] MEDS: MULTIVITAMINS W-IRON TABLET, CHEWABLE PO SCH ×2 (11:13→11:37)
[2019-08-29] MEDS: CALCIUM CARBONATE 250 MG/VITAMIN D3 125 UNIT TABLET PO SCH (11:14)
[2019-08-29] MEDS: VALSARTAN 40 MG TABLET PO SCH (11:14)
[2019-08-29] MEDS: METOPROLOL TARTRATE 25 MG TABLET PO SCH ×2 (11:15→22:52)
[2019-08-29] MEDS: CITALOPRAM HYDROBROMIDE 20 MG TABLET PO SCH (11:15)
[2019-08-29] MEDS: FLUCONAZOLE 100 MG TABLET PO SCH (11:15)
[2019-08-29] MEDS: DOCUSATE SODIUM 100 MG CAPSULE PO SCH (11:15)
[2019-08-29] MEDS: NORMAL SALINE 10 ML SDV (SCHEDULED) IV SCH ×2 (11:38→22:51)
--- NOTE | 2019-08-29 18:41 | PDOC PROGRESS REPORT ---
Subjective Progress Note for:: 08/29/19 Subjective:: Patient denied any chest pain. No fever or chills. No nausea or vomiting. No abdominal pain. Her blood pressure has been running low so far today with need to hold her Cardizem. She has been getting her pain medication. Reason For Visit: ACUTE EXACERBATION OF COPD ANEMIA WITH NEED FOR Physical Exam Vital Signs: Temp Pulse Resp BP Pulse Ox 98.0 F 83 17 93/44 L 99 08/29/19 16:00 08/29/19 16:00 08/29/19 16:00 08/29/19 16:00 08/29/19 16:00 Pulse Oximeter Continuous Start: 08/25/19 05:32 Freq: RTQ4 Status: Active Protocol: Document 08/29/19 15:58 [facility] (Rec: 08/29/19 16:36 [facility] [id number]) Pulse Oximetry Assessment Oxygen Saturation (92-100) 93 Oxygen Flow Rate (L/min) 4 Oxygen Delivery Method Nasal Cannula Fraction of Inspired Oxygen (FIO2) 36 Equipment Usage Equipment Standby Continuous SpO2 Machine # 11 Intake & Output 08/28/19 08/29/19 08/30/19 06:59 06:59 06:59 Intake Total 535 1050 Output Total 50 Balance 485 1050 Weight 48.4 kg 47.8 kg Physical Exam: General appearance: PRESENT: mild distress - remain on nasal cannula supplemental oxygen, thin Head exam: PRESENT: atraumatic, normocephalic Eye exam: PRESENT: conjunctiva pink. ABSENT: pallor, scleral icterus Ear exam: PRESENT: normal external ear exam Mouth exam: PRESENT: moist Teeth exam: PRESENT: poor dentition Neck exam: PRESENT: lymphadenopathy - left supraclavicular fossa region Respiratory exam: PRESENT: decreased breath sounds, rhonchi - expiratory phase Cardiovascular exam: PRESENT: irregular rhythm, +S1, +S2, systolic murmur - LLSB region. ABSENT: diastolic murmur, gallop GI/Abdominal exam: PRESENT: normal bowel sounds, soft. ABSENT: distended, guarding, mass, organomegaly, rebound, tenderness Extremities exam: PRESENT: pedal edema - bilateral upper extremities, PICC line access left arm Neurological exam: PRESENT: alert, awake, oriented to person, oriented to place, oriented to time, oriented to situation, CN II-XII grossly intact. ABSENT: motor sensory deficit Psychiatric exam: PRESENT: appropriate affect, normal mood. ABSENT: homicidal ideation, suicidal ideation Skin exam: PRESENT: dry, warm Results Laboratory Results: 08/29/19 06:27 08/22/19 07:17 08/29/19 06:27 WBC 12.8 H RBC 3.38 L Hgb 9.6 L Hct 30.7 L MCV 91 MCH 28.4 MCHC 31.2 L RDW 21.8 H Plt Count 304 Impressions: Venous Doppler Study 08/21/19 00:00 IMPRESSION: No right jugular lower pole upper extremity venous thrombosis Incompletely occlusive mixed echogenicity clot in the left internal jugular vein No flow is identified in the left arm cephalic vein which is diffusely small 3.8 x 3.6 x 3 cm soft tissue mass in the left supraclavicular region adjacent to the thrombosed IJ vein. This could represent an enlarged lymph node Chest X-Ray 08/21/19 06:00 IMPRESSION: Postextubation. Increase in pulmonary edema and pulmonary vascular congestion Small bilateral pleural effusions Chest CT 08/23/19 08:00 IMPRESSION: Upper mediastinal adenopathy with mass-effect on venous structures, left internal jugular vein is incompletely occluded with clot on Doppler exam 08/21/2019. Large right peritracheal lymph node in the upper mediastinum may have significant mass effect on the superior vena cava. Follow-up contrast CT is recommended Lung parenchyma abnormal, with probable alveolar and interstitial edema. Multifocal pneumonia versus pulmonary infarcts. Trace pleural effusions. Carotid Doppler Study 08/25/19 00:00 IMPRESSION: Complete occlusion of the right internal carotid artery with near complete occlusion of the carotid bulb. Greater than 70% stenosis of the left common carotid artery on the basis of mixed plaque. 50 to 69% occlusion of the left internal carotid artery on the basis of mixed plaque. Elevated left vertebral artery velocities. Chest/Abdomen CTA 08/25/19 00:00 IMPRESSION: Poor contrast enhancement of the proximal right common carotid artery. Findings could indicate thrombosis/stenosis. Findings discussed with attending physician, follow-up carotid Doppler will be performed shortly Malignant appearing mediastinal adenopathy Further collapse and consolidation of the bilateral lower lobes compared to 08/23/2019. Small pleural effusions are slightly increased compared to 08/23/2019 Guidance Fluoroscopy 08/25/19 00:00 IMPRESSION: Please see combined report for performance of procedure and radiologic supervision and interpretation. Interventional Vascular Procedure 08/25/19 00:00 IMPRESSION: SUCCESSFUL PLACEMENT OF A 5 FR DUAL LUMEN 27 CM PICC IN THE LEFT BASILIC VEIN. PICC Line Insertion 08/25/19 00:00 IMPRESSION: SUCCESSFUL PLACEMENT OF A 5 FR DUAL LUMEN 27 CM PICC IN THE LEFT BASILIC VEIN. Assessment & Plan - Diagnosis (1) Anemia requiring transfusions Is this a current diagnosis for this admission?: Yes (2) COPD with exacerbation Is this a current diagnosis for this admission?: Yes (3) Chronic atrial fibrillation Is this a current diagnosis for this admission?: Yes (4) Chronic diastolic CHF (congestive heart failure) Is this a current diagnosis for this admission?: Yes (5) HLD (hyperlipidemia) Qualifiers: Hyperlipidemia type: unspecified Qualified Code(s): E78.5 - Hyperlipidemia, unspecified Is this a current diagnosis for this admission?: Yes (6) HTN (hypertension) Qualifiers: Hypertension type: essential hypertension Qualified Code(s): I10 - Essential (primary) hypertension Is this a current diagnosis for this admission?: Yes (7) Cephalic vein thrombosis, left Is this a current diagnosis for this admission?: Yes (8) Enlarged lymph node in neck Is this a current diagnosis for this admission?: Yes (9) Internal jugular vein thrombosis Qualifiers: Laterality: left Qualified Code(s): I82.C12 - Acute embolism and thrombosis of left internal jugular vein Is this a current diagnosis for this admission?: Yes (10) Acute and chronic respiratory failure with hypoxia Is this a current diagnosis for this admission?: Yes (11) Bilateral stenosis of carotid arteries greater than 50% Is this a current diagnosis for this admission?: Yes (12) Lymphadenopathy, mediastinal Is this a current diagnosis for this admission?: Yes (13) Lymphadenopathy, supraclavicular Is this a current diagnosis for this admission?: Yes (14) Laryngeal candidiasis Is this a current diagnosis for this admission?: Yes - Time Time Spent with patient: 25-34 minutes Level of Care: TELE Medications reviewed and adjusted accordingly: Yes Anticipated discharge: Home with Homehealth Within: Other - Inpatient Certification Based on my medical assessment, after consideration of the patient's comorbidities, presenting symptoms, or acuity I expect that the services needed warrant INPATIENT care.: Yes I certify that my determination is in accordance with my understanding of Medicare's requirements for reasonable and necessary INPATIENT services [42 CFR 412.3e].: Yes Medical Necessity: Significant Comorbidiites Make Outpatient Treatment Too Risky, Need Close Monitoring Due to Risk of Patient Decompensation, Need For IV Fluids, Need For Continuous Telemetry Monitoring, Need for Nebulizer Therapy and Monitoring of Response, Risk of Complication if Not Cared For in Hospital, Risk of Diagnosis Which Will Require Inpatient Eval/Care/Monitoring Post Hospital Care: D/C House Admin Documentation - Plan Summary Plan Summary: IV N/S 250 cc bolus x 1 dose. Continue to hold medications that can lower her blood pressure further, including Metoprolol, Cardizem, and Diovan. Obtain CBC with diff and CMP in AM.
[2019-08-29] MEDS ORDERED: NORMAL SALINE 250 ML IV ONE (18:45)
[2019-08-29 22:44] LABS: APPEARANCE,URINE SLIGHTLY-CLOUDY; BILIRUBIN,URINE NEGATIVE (NEGATIVE); COLOR,URINE STRAW; GLUCOSE, URINE NEGATIVE (NEGATIVE); KETONES,URINE NEGATIVE (NEGATIVE); LEUKOCYTE ESTERASE,URINE TRACE (NEGATIVE); NITRITE,URINE NEGATIVE (NEGATIVE); PROTEIN,URINE NEGATIVE (NEGATIVE); URINE SPECIFIC GRAVITY 1.008; UROBILINOGEN,URINE NEGATIVE mg/dL (<2.0)
[2019-08-29] MEDS: ATORVASTATIN CALCIUM 40 MG TABLET PO SCH (22:50)
[2019-08-29] MEDS: LATANOPROST 0.005% OPH SOLN 2.5 ML OU SCH (22:51)
[2019-08-30] MEDS: ALBUTEROL SULFATE 0.083% NEB 2.5 MG/3 ML AMPUL NEB SCH ×6 (04:31→23:58)
[2019-08-30] MEDS: GABAPENTIN 300 MG CAPSULE PO SCH ×3 (05:18→21:30)
[2019-08-30] MEDS: PANTOPRAZOLE SODIUM 40 MG TABLET.DR PO SCH (05:21)
[2019-08-30] MEDS: DILTIAZEM HCL 30 MG TABLET PO SCH ×4 (05:21→18:23)
[2019-08-30 06:03] LABS: HEMATOCRIT 29.1 % (36.0-47.0); HEMOGLOBIN 9.2 g/dL (12.0-15.5); MEAN CORPUSCULAR HEMOGLOBIN 28.5 pg (27.0-33.4); MEAN CORPUSCULAR HGB CONC 31.6 g/dL (32.0-36.0); MEAN CORPUSCULAR VOLUME 90 fl (80-97); PLATELET COUNT 271 10^3/uL (150-450); RED BLOOD COUNT 3.23 10^6/uL (3.72-5.28); RED CELL DISTRIBUTION WIDTH 22.2 % (11.5-14.0); WHITE BLOOD COUNT 11.8 10^3/uL (4.0-10.5)
[2019-08-30 06:19] LABS: ALBUMIN 2.6 g/dL (3.5-5.0); ALKALINE PHOSPHATASE 69 U/L (38-126); ASPARTATE AMINO TRANSFERASE 24 U/L (14-36); BILIRUBIN,DIRECT 0.2 mg/dL (0.0-0.4); BILIRUBIN,TOTAL 0.5 mg/dL (0.2-1.3); BLOOD UREA NITROGEN 10 mg/dL (7-20); CALCIUM 9.3 mg/dL (8.4-10.2); CHLORIDE 93 mmol/L (98-107); GLUCOSE 96 mg/dL (75-110); POTASSIUM 4.9 mmol/L (3.6-5.0); TOTAL PROTEIN 5.8 g/dL (6.3-8.2)
[2019-08-30 06:26] LABS: ANION GAP 6 (5-19)
[2019-08-30 06:36] LABS: CARBON DIOXIDE 40 mmol/L (22-30)
[2019-08-30] MEDS: APIXABAN 5 MG TABLET PO SCH ×2 (10:41→18:23)
[2019-08-30] MEDS: MULTIVITAMINS W-IRON TABLET, CHEWABLE PO SCH ×2 (10:41→11:11)
[2019-08-30] MEDS: POTASSIUM CHLORIDE 20 MEQ PACKET PO SCH (10:41)
[2019-08-30] MEDS: DOCUSATE SODIUM 100 MG CAPSULE PO SCH (10:41)
[2019-08-30] MEDS: CALCIUM CARBONATE 250 MG/VITAMIN D3 125 UNIT TABLET PO SCH (10:42)
[2019-08-30] MEDS: METOPROLOL TARTRATE 25 MG TABLET PO SCH ×2 (10:42→21:30)
[2019-08-30] MEDS: CITALOPRAM HYDROBROMIDE 20 MG TABLET PO SCH (10:42)
[2019-08-30] MEDS: FLUTICASONE/VILANTEROL 200-25 MCG/DOSE IH SCH (10:43)
[2019-08-30] MEDS: UMECLIDINIUM BROMIDE 62.5 MCG/DOSE IH SCH (10:48)
[2019-08-30] MEDS: VENLAFAXINE HCL 75 MG TABLET PO SCH (10:51)
[2019-08-30] MEDS: VALSARTAN 40 MG TABLET PO SCH (10:51)
[2019-08-30] MEDS: NORMAL SALINE 10 ML SDV (SCHEDULED) IV SCH ×2 (10:57→21:29)
[2019-08-30] MEDS: FLUCONAZOLE 100 MG TABLET PO SCH ×2 (11:08→11:10)
--- NOTE | 2019-08-30 13:00 | PDOC PROGRESS REPORT ---
Subjective Progress Note for:: 08/30/19 Subjective:: Patient is refusing to use her BiPAP support! Her serum CO2 is slightly elevated this morning. she remain on supplemental oxygen via nasal cannula. No chest pain. No fever or chills. No nausea, vomiting, or abdominal pain. Reason For Visit: ACUTE EXACERBATION OF COPD ANEMIA WITH NEED FOR Physical Exam Vital Signs: Temp Pulse Resp BP Pulse Ox 97.4 F 99 16 105/42 L 95 08/30/19 09:10 08/30/19 12:32 08/30/19 12:32 08/30/19 09:10 08/30/19 12:32 Pulse Oximeter Continuous Start: 08/25/19 05:32 Freq: RTQ4 Status: Active Protocol: Document 08/30/19 12:32 LATISHA (Rec: 08/30/19 12:37 J [email or web address]) Pulse Oximetry Assessment Oxygen Saturation (92-100) 95 Oxygen Flow Rate (L/min) 3 Oxygen Delivery Method Nasal Cannula Equipment Usage Equipment in Use Continuous SpO2 Machine # 11 Intake & Output 08/29/19 08/30/19 08/31/19 06:59 06:59 06:59 Intake Total 1050 450 Balance 1050 450 Weight 47.8 kg 48.3 kg Physical Exam: General appearance: PRESENT: mild distress - remain on nasal cannula supple mental oxygen, thin Head exam: PRESENT: atraumatic, normocephalic Eye exam: PRESENT: conjunctiva pink. ABSENT: pallor, scleral icterus Ear exam: PRESENT: normal external ear exam Mouth exam: PRESENT: moist Teeth exam: PRESENT: poor dentition Neck exam: PRESENT: lymphadenopathy - left supraclavicular fossa region Respiratory exam: PRESENT: decreased breath sounds, rhonchi - expiratory phase Cardiovascular exam: PRESENT: irregular rhythm, +S1, +S2, systolic murmur - LLSB region. ABSENT: diastolic murmur, gallop GI/Abdominal exam: PRESENT: normal bowel sounds, soft. ABSENT: distended, guarding, mass, organomegaly, rebound, tenderness Extremities exam: PRESENT: pedal edema - bilateral upper extremities, PICC line access left arm Neurological exam: PRESENT: alert, awake, oriented to person, oriented to place, oriented to time, oriented to situation, CN II-XII grossly intact. ABSENT: motor sensory deficit Psychiatric exam: PRESENT: appropriate affect, normal mood. ABSENT: homicidal ideation, suicidal ideation Skin exam: PRESENT: dry, warm Results Laboratory Results: 08/30/19 05:33 08/30/19 05:33 08/29/19 08/30/19 08/30/19 22:25 05:33 05:33 WBC 11.8 H RBC 3.23 L Hgb 9.2 L Hct 29.1 L MCV 90 MCH 28.5 MCHC 31.6 L RDW 22.2 H Plt Count 271 Sodium 139.3 Potassium 4.9 Chloride 93 L Carbon Dioxide 40 H* Anion Gap 6 BUN 10 Creatinine 0.60 Est GFR ( Amer) > 60 Glucose 96 Calcium 9.3 Total Bilirubin 0.5 AST 24 Alkaline Phosphatase 69 Total Protein 5.8 L Albumin 2.6 L Urine Color STRAW Urine Appearance SLIGHTLY-CLOUDY Urine pH 8.0 Ur Specific Bonner 1.008 Urine Protein NEGATIVE Urine Glucose (UA) NEGATIVE Urine Ketones NEGATIVE Urine Blood NEGATIVE Urine Nitrite NEGATIVE Ur Leukocyte Esterase TRACE H Urine WBC (Auto) 5 Urine RBC (Auto) 3 Impressions: Venous Doppler Study 08/21/19 00:00 IMPRESSION: No right jugular lower pole upper extremity venous thrombosis Incompletely occlusive mixed echogenicity clot in the left internal jugular vein No flow is identified in the left arm cephalic vein which is diffusely small 3.8 x 3.6 x 3 cm soft tissue mass in the left supraclavicular region adjacent to the thrombosed IJ vein. This could represent an enlarged lymph node Chest X-Ray 08/21/19 06:00 IMPRESSION: Postextubation. Increase in pulmonary edema and pulmonary vascular congestion Small bilateral pleural effusions Chest CT 08/23/19 08:00 IMPRESSION: Upper mediastinal adenopathy with mass-effect on venous structures, left internal jugular vein is incompletely occluded with clot on Doppler exam 08/21/2019. Large right peritracheal lymph node in the upper mediastinum may have significant mass effect on the superior vena cava. Follow-up contrast CT is recommended Lung parenchyma abnormal, with probable alveolar and interstitial edema. Multifocal pneumonia versus pulmonary infarcts. Trace pleural effusions. Carotid Doppler Study 08/25/19 00:00 IMPRESSION: Complete occlusion of the right internal carotid artery with near complete occlusion of the carotid bulb. Greater than 70% stenosis of the left common carotid artery on the basis of mixed plaque. 50 to 69% occlusion of the left internal carotid artery on the basis of mixed plaque. Elevated left vertebral artery velocities. Chest/Abdomen CTA 08/25/19 00:00 IMPRESSION: Poor contrast enhancement of the proximal right common carotid artery. Findings could indicate thrombosis/stenosis. Findings discussed with attending physician, follow-up carotid Doppler will be performed shortly Malignant appearing mediastinal adenopathy Further collapse and consolidation of the bilateral lower lobes compared to 08/23/2019. Small pleural effusions are slightly increased compared to 08/23/2019 Guidance Fluoroscopy 08/25/19 00:00 IMPRESSION: Please see combined report for performance of procedure and radiologic supervision and interpretation. Interventional Vascular Procedure 08/25/19 00:00 IMPRESSION: SUCCESSFUL PLACEMENT OF A 5 FR DUAL LUMEN 27 CM PICC IN THE LEFT BASILIC VEIN. PICC Line Insertion 08/25/19 00:00 IMPRESSION: SUCCESSFUL PLACEMENT OF A 5 FR DUAL LUMEN 27 CM PICC IN THE LEFT BASILIC VEIN. Assessment & Plan - Diagnosis (1) Anemia requiring transfusions Is this a current diagnosis for this admission?: Yes (2) COPD with exacerbation Is this a current diagnosis for this admission?: Yes (3) Chronic atrial fibrillation Is this a current diagnosis for this admission?: Yes (4) Chronic diastolic CHF (congestive heart failure) Is this a current diagnosis for this admission?: Yes (5) HLD (hyperlipidemia) Qualifiers: Hyperlipidemia type: unspecified Qualified Code(s): E78.5 - Hyperlipidemia, unspecified Is this a current diagnosis for this admission?: Yes (6) HTN (hypertension) Qualifiers: Hypertension type: essential hypertension Qualified Code(s): I10 - Essential (primary) hypertension Is this a current diagnosis for this admission?: Yes (7) Cephalic vein thrombosis, left Is this a current diagnosis for this admission?: Yes (8) Enlarged lymph node in neck Is this a current diagnosis for this admission?: Yes (9) Internal jugular vein thrombosis Qualifiers: Laterality: left Qualified Code(s): I82.C12 - Acute embolism and thrombosis of left internal jugular vein Is this a current diagnosis for this admission?: Yes (10) Acute and chronic respiratory failure with hypoxia Is this a current diagnosis for this admission?: Yes (11) Bilateral stenosis of carotid arteries greater than 50% Is this a current diagnosis for this admission?: Yes (12) Lymphadenopathy, mediastinal Is this a current diagnosis for this admission?: Yes (13) Lymphadenopathy, supraclavicular Is this a current diagnosis for this admission?: Yes (14) Laryngeal candidiasis Is this a current diagnosis for this admission?: Yes - Time Time Spent with patient: 35 or more minutes Level of Care: TELE Medications reviewed and adjusted accordingly: Yes Anticipated discharge: Home with Homehealth Within: Other - Inpatient Certification Based on my medical assessment, after consideration of the patient's comorbidities, presenting symptoms, or acuity I expect that the services needed warrant INPATIENT care.: Yes I certify that my determination is in accordance with my understanding of Medicare's requirements for reasonable and necessary INPATIENT services [42 CFR 412.3e].: Yes Medical Necessity: Significant Comorbidiites Make Outpatient Treatment Too Risky, Need Close Monitoring Due to Risk of Patient Decompensation, Need For Continuous Telemetry Monitoring, Need for Nebulizer Therapy and Monitoring of Response, Risk of Complication if Not Cared For in Hospital, Risk of Diagnosis Which Will Require Inpatient Eval/Care/Monitoring Post Hospital Care: D/C Brass Chaser Documentation - Plan Summary Plan Summary: Continue current medication management. Emphasized compliance with BiPAP. Repeat CBC with diff, BMP and chest X ray in AM.
[2019-08-30] MEDS: OXYCODONE-ACETAMINOPHEN 5-325 MG TABLET PO PRN ×2 (13:08→23:17)
[2019-08-30] MEDS: ATORVASTATIN CALCIUM 40 MG TABLET PO SCH (21:30)
[2019-08-30] MEDS: LATANOPROST 0.005% OPH SOLN 2.5 ML OU SCH (21:34)
[2019-08-31] MEDS: DILTIAZEM HCL 30 MG TABLET PO SCH ×4 (00:41→17:37)
[2019-08-31] MEDS: ALBUTEROL SULFATE 0.083% NEB 2.5 MG/3 ML AMPUL NEB SCH ×5 (04:38→20:37)
[2019-08-31] MEDS: PANTOPRAZOLE SODIUM 40 MG TABLET.DR PO SCH (06:01)
[2019-08-31] MEDS: GABAPENTIN 300 MG CAPSULE PO SCH ×3 (06:01→21:33)
[2019-08-31 06:20] LABS: ABSOLUTE BASOPHILS # (AUTO) 0.1 10^3/uL (0.0-0.2); ABSOLUTE EOSINOPHILS # (AUTO) 0.2 10^3/uL (0.0-0.6); ABSOLUTE LYMPHOCYTES (AUTO) 0.9 10^3/uL (0.5-4.7); ABSOLUTE MONOCYTES (AUTO) 0.9 10^3/uL (0.1-1.4); BASOPHILS % (AUTO) 0.6 % (0-2); EOSINOPHILS % (AUTO) 2.2 % (0-6); HEMATOCRIT 30.7 % (36.0-47.0); HEMOGLOBIN 9.5 g/dL (12.0-15.5); LYMPHOCYTES % (AUTO) 8.3 % (13-45); MEAN CORPUSCULAR VOLUME 90 fl (80-97); MONOCYTES % (AUTO) 7.8 % (3-13); PLATELET COUNT 314 10^3/uL (150-450); RED CELL DISTRIBUTION WIDTH 22.2 % (11.5-14.0); SEGMENTED NEUTROPHILS % (AUTO) 81.1 % (42-78); TOTAL CELLS COUNTED % (AUTO) 100 %; WHITE BLOOD COUNT 11.1 10^3/uL (4.0-10.5)
[2019-08-31 06:39] LABS: ALBUMIN 2.9 g/dL (3.5-5.0); ALKALINE PHOSPHATASE 77 U/L (38-126); ASPARTATE AMINO TRANSFERASE 27 U/L (14-36); BILIRUBIN,DIRECT 0.2 mg/dL (0.0-0.4); BILIRUBIN,TOTAL 0.5 mg/dL (0.2-1.3); BLOOD UREA NITROGEN 9 mg/dL (7-20); CALCIUM 9.4 mg/dL (8.4-10.2); CHLORIDE 93 mmol/L (98-107); GLUCOSE 103 mg/dL (75-110); POTASSIUM 5.2 mmol/L (3.6-5.0); TOTAL PROTEIN 6.3 g/dL (6.3-8.2)
[2019-08-31 06:45] LABS: ANION GAP 8 (5-19); CARBON DIOXIDE 36 mmol/L (22-30)
--- NOTE | 2019-08-31 11:07 | RADIOLOGY REPORT (SQ) ---
EXAM DESCRIPTION: CHEST 2 VIEWS COMPLETED DATE/TIME: 08/31/2019 10:04 am REASON FOR STUDY: COPD, Hilar Adenopathy, Pleural effusion COMPARISON: CT 08/25/2019 NUMBER OF VIEWS: Two view TECHNIQUE: Frontal and lateral radiographic images of the chest acquired. LIMITATIONS: None. FINDINGS: LUNGS AND PLEURA: Bilateral pleural effusions, left greater than right. Diffuse bilateral airspace disease with air bronchograms. No pneumothorax. MEDIASTINUM AND HILAR STRUCTURES: Stable heart size and mediastinal structures. HEART AND VASCULAR STRUCTURES: Stable appearance. SUPPORT DEVICES: Appropriate location without change. BONES: No acute findings. OTHER: No other significant finding. IMPRESSION: Bilateral pneumonia or asymmetric edema. No significant change. TECHNICAL DOCUMENTATION: JOB ID: [id number] [employer]- All Rights Reserved Reading location - IP/workstation name: [email or web address]
[2019-08-31] MEDS: FLUTICASONE/VILANTEROL 200-25 MCG/DOSE IH SCH (11:10)
[2019-08-31] MEDS: UMECLIDINIUM BROMIDE 62.5 MCG/DOSE IH SCH (11:10)
[2019-08-31] MEDS: MULTIVITAMINS W-IRON TABLET, CHEWABLE PO SCH (11:11)
[2019-08-31] MEDS: FLUCONAZOLE 100 MG TABLET PO SCH (11:13)
[2019-08-31] MEDS: VENLAFAXINE HCL 75 MG TABLET PO SCH (11:13)
[2019-08-31] MEDS: VALSARTAN 40 MG TABLET PO SCH (11:13)
[2019-08-31] MEDS: CALCIUM CARBONATE 250 MG/VITAMIN D3 125 UNIT TABLET PO SCH (11:13)
[2019-08-31] MEDS: APIXABAN 5 MG TABLET PO SCH ×2 (11:17→17:37)
[2019-08-31] MEDS: POTASSIUM CHLORIDE 20 MEQ PACKET PO SCH (11:17)
[2019-08-31] MEDS: METOPROLOL TARTRATE 25 MG TABLET PO SCH ×2 (11:17→21:32)
[2019-08-31] MEDS: DOCUSATE SODIUM 100 MG CAPSULE PO SCH (11:17)
[2019-08-31] MEDS: CITALOPRAM HYDROBROMIDE 20 MG TABLET PO SCH (11:17)
[2019-08-31] MEDS: NORMAL SALINE 10 ML SDV (SCHEDULED) IV SCH ×2 (11:18→21:33)
[2019-08-31] MEDS: OXYCODONE-ACETAMINOPHEN 5-325 MG TABLET PO PRN ×3 (11:23→23:26)
--- NOTE | 2019-08-31 12:55 | PDOC PROGRESS REPORT ---
Subjective Progress Note for:: 08/31/19 Subjective:: Patient remain on supplemental oxygen via nasal cannula and BiPAP support. No chest pain. No fever or chills. No nausea, vomiting, or abdominal pain. Reason For Visit: ACUTE EXACERBATION OF COPD ANEMIA WITH NEED FOR Physical Exam Vital Signs: Temp Pulse Resp BP Pulse Ox 98.1 F 91 18 133/55 H 94 08/31/19 07:51 08/31/19 08:11 08/31/19 08:11 08/31/19 07:51 08/31/19 08:11 Pulse Oximeter Continuous Start: 08/25/19 05:32 Freq: RTQ4 Status: Active Protocol: Document 08/31/19 08:11 LATISHA (Rec: 08/31/19 08:22 J [email or web address]) Pulse Oximetry Assessment Oxygen Saturation (92-100) 94 Oxygen Flow Rate (L/min) 3 Oxygen Delivery Method Nasal Cannula Equipment Usage Equipment in Use Continuous SpO2 Machine # 11 Intake & Output 08/30/19 08/31/19 09/01/19 06:59 06:59 06:59 Intake Total 450 690 Balance 450 690 Weight 48.3 kg Physical Exam: General appearance: PRESENT: mild distress - remain on nasal cannula supplemental oxygen, thin Head exam: PRESENT: atraumatic, normocephalic Eye exam: PRESENT: conjunctiva pink. ABSENT: pallor, scleral icterus Ear exam: PRESENT: normal external ear exam Mouth exam: PRESENT: moist Teeth exam: PRESENT: poor dentition Neck exam: PRESENT: lymphadenopathy - left supraclavicular fossa region Respiratory exam: PRESENT: decreased breath sounds, rhonchi - expiratory phase Cardiovascular exam: PRESENT: irregular rhythm, +S1, +S2, systolic murmur - LLSB region. ABSENT: diastolic murmur, gallop GI/Abdominal exam: PRESENT: normal bowel sounds, soft. ABSENT: distended, guarding, mass, organomegaly, rebound, tenderness Extremities exam: PRESENT: pedal edema - bilateral upper extremities, PICC line access left arm Neurological exam: PRESENT: alert, awake, oriented to person, oriented to place, oriented to time, oriented to situation, CN II-XII grossly intact. ABSENT: motor sensory deficit Psychiatric exam: PRESENT: appropriate affect, normal mood. ABSENT: homicidal ideation, suicidal ideation Skin exam: PRESENT: dry, warm Results Laboratory Results: 08/31/19 06:10 08/31/19 06:10 08/31/19 08/31/19 06:10 06:10 WBC 11.1 H RBC 3.40 L Hgb 9.5 L Hct 30.7 L MCV 90 MCH 28.0 MCHC 31.0 L RDW 22.2 H Plt Count 314 Seg Neutrophils % 81.1 H Sodium 136.7 L Potassium 5.2 H Chloride 93 L Carbon Dioxide 36 H Anion Gap 8 BUN 9 Creatinine 0.67 Est GFR ( Amer) > 60 Glucose 103 Calcium 9.4 Total Bilirubin 0.5 AST 27 Alkaline Phosphatase 77 Total Protein 6.3 Albumin 2.9 L Impressions: Venous Doppler Study 08/21/19 00:00 IMPRESSION: No right jugular lower pole upper extremity venous thrombosis Incompletely occlusive mixed echogenicity clot in the left internal jugular vein No flow is identified in the left arm cephalic vein which is diffusely small 3.8 x 3.6 x 3 cm soft tissue mass in the left supraclavicular region adjacent to the thrombosed IJ vein. This could represent an enlarged lymph node Chest CT 08/23/19 08:00 IMPRESSION: Upper mediastinal adenopathy with mass-effect on venous structures, left internal jugular vein is incompletely occluded with clot on Doppler exam 08/21/2019. Large right peritracheal lymph node in the upper mediastinum may have significant mass effect on the superior vena cava. Follow-up contrast CT is recommended Lung parenchyma abnormal, with probable alveolar and interstitial edema. Multifocal pneumonia versus pulmonary infarcts. Trace pleural effusions. Carotid Doppler Study 08/25/19 00:00 IMPRESSION: Complete occlusion of the right internal carotid artery with near complete occlusion of the carotid bulb. Greater than 70% stenosis of the left common carotid artery on the basis of mixed plaque. 50 to 69% occlusion of the left internal carotid artery on the basis of mixed plaque. Elevated left vertebral artery velocities. Chest/Abdomen CTA 08/25/19 00:00 IMPRESSION: Poor contrast enhancement of the proximal right common carotid artery. Findings could indicate thrombosis/stenosis. Findings discussed with attending physician, follow-up carotid Doppler will be performed shortly Malignant appearing mediastinal adenopathy Further collapse and consolidation of the bilateral lower lobes compared to . Small pleural effusions are slightly increased compared to 08/23/2019 Guidance Fluoroscopy 08/25/19 00:00 IMPRESSION: Please see combined report for performance of procedure and radiologic supervision and interpretation. Interventional Vascular Procedure 08/25/19 00:00 IMPRESSION: SUCCESSFUL PLACEMENT OF A 5 FR DUAL LUMEN 27 CM PICC IN THE LEFT BASILIC VEIN. PICC Line Insertion 08/25/19 00:00 IMPRESSION: SUCCESSFUL PLACEMENT OF A 5 FR DUAL LUMEN 27 CM PICC IN THE LEFT BASILIC VEIN. Chest X-Ray 08/31/19 06:00 IMPRESSION: Bilateral pneumonia or asymmetric edema. No significant change. Assessment & Plan - Diagnosis (1) Anemia requiring transfusions Is this a current diagnosis for this admission?: Yes (2) COPD with exacerbation Is this a current diagnosis for this admission?: Yes (3) Chronic atrial fibrillation Is this a current diagnosis for this admission?: Yes (4) Chronic diastolic CHF (congestive heart failure) Is this a current diagnosis for this admission?: Yes (5) HLD (hyperlipidemia) Qualifiers: Hyperlipidemia type: unspecified Qualified Code(s): E78.5 - Hyperlipidemia, unspecified Is this a current diagnosis for this admission?: Yes (6) HTN (hypertension) Qualifiers: Hypertension type: essential hypertension Qualified Code(s): I10 - Essential (primary) hypertension Is this a current diagnosis for this admission?: Yes (7) Cephalic vein thrombosis, left Is this a current diagnosis for this admission?: Yes (8) Enlarged lymph node in neck Is this a current diagnosis for this admission?: Yes (9) Internal jugular vein thrombosis Qualifiers: Laterality: left Qualified Code(s): I82.C12 - Acute embolism and thrombosis of left internal jugular vein Is this a current diagnosis for this admission?: Yes (10) Acute and chronic respiratory failure with hypoxia Is this a current diagnosis for this admission?: Yes (11) Bilateral stenosis of carotid arteries greater than 50% Is this a current diagnosis for this admission?: Yes (12) Lymphadenopathy, mediastinal Is this a current diagnosis for this admission?: Yes (13) Lymphadenopathy, supraclavicular Is this a current diagnosis for this admission?: Yes (14) Laryngeal candidiasis Is this a current diagnosis for this admission?: Yes - Time Time Spent with patient: 25-34 minutes Level of Care: TELE Medications reviewed and adjusted accordingly: Yes Anticipated discharge: Home with Homehealth Within: Other - Inpatient Certification Based on my medical assessment, after consideration of the patient's comorbidities, presenting symptoms, or acuity I expect that the services needed warrant INPATIENT care.: Yes I certify that my determination is in accordance with my understanding of [employer] 's requirements for reasonable and necessary INPATIENT services [42 CFR 412.3e].: Yes Medical Necessity: Significant Comorbidiites Make Outpatient Treatment Too Risky, Need Close Monitoring Due to Risk of Patient Decompensation, Need For Continuous Telemetry Monitoring, Risk of Complication if Not Cared For in Hospital, Risk of Diagnosis Which Will Require Inpatient Eval/Care/Monitoring Post Hospital Care: D/C 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 Follow up on pulmonary consultation with Dr. Ruiz and coordinate with interventional radiologist for possible left supraclavicular region soft tissue (lymph node) biopsy versus thoracentesis to aide in definitive diagnosis about her lung pathology.
[2019-08-31] MEDS: ATORVASTATIN CALCIUM 40 MG TABLET PO SCH (21:32)
[2019-08-31] MEDS: LATANOPROST 0.005% OPH SOLN 2.5 ML OU SCH (21:33)
[2019-09-01] MEDS: DILTIAZEM HCL 30 MG TABLET PO SCH ×4 (00:29→18:29)
[2019-09-01] MEDS: ALBUTEROL SULFATE 0.083% NEB 2.5 MG/3 ML AMPUL NEB SCH ×6 (04:00→19:58)
[2019-09-01] MEDS: PANTOPRAZOLE SODIUM 40 MG TABLET.DR PO SCH (06:40)
[2019-09-01] MEDS: GABAPENTIN 300 MG CAPSULE PO SCH ×3 (06:41→21:09)
[2019-09-01 07:02] LABS: HEMATOCRIT 29.7 % (36.0-47.0); HEMOGLOBIN 9.3 g/dL (12.0-15.5); MEAN CORPUSCULAR HEMOGLOBIN 28.3 pg (27.0-33.4); MEAN CORPUSCULAR HGB CONC 31.3 g/dL (32.0-36.0); MEAN CORPUSCULAR VOLUME 90 fl (80-97); PLATELET COUNT 295 10^3/uL (150-450); RED CELL DISTRIBUTION WIDTH 21.9 % (11.5-14.0); WHITE BLOOD COUNT 11.7 10^3/uL (4.0-10.5)
[2019-09-01] MEDS: POTASSIUM CHLORIDE 20 MEQ PACKET PO SCH ×2 (09:50→09:59)
[2019-09-01] MEDS: APIXABAN 5 MG TABLET PO SCH (09:50)
[2019-09-01] MEDS: CALCIUM CARBONATE 250 MG/VITAMIN D3 125 UNIT TABLET PO SCH (09:50)
[2019-09-01] MEDS: DOCUSATE SODIUM 100 MG CAPSULE PO SCH (09:50)
[2019-09-01] MEDS: MULTIVITAMINS W-IRON TABLET, CHEWABLE PO SCH (09:50)
[2019-09-01] MEDS: METOPROLOL TARTRATE 25 MG TABLET PO SCH ×2 (09:51→21:24)
[2019-09-01] MEDS: CITALOPRAM HYDROBROMIDE 20 MG TABLET PO SCH (09:52)
[2019-09-01] MEDS: VALSARTAN 40 MG TABLET PO SCH (09:53)
[2019-09-01] MEDS: FLUCONAZOLE 100 MG TABLET PO SCH (09:53)
[2019-09-01] MEDS: NORMAL SALINE 10 ML SDV (SCHEDULED) IV SCH ×2 (09:55→21:25)
[2019-09-01] MEDS: FLUTICASONE/VILANTEROL 200-25 MCG/DOSE IH SCH (09:56)
[2019-09-01] MEDS: VENLAFAXINE HCL 75 MG TABLET PO SCH (09:56)
[2019-09-01] MEDS: UMECLIDINIUM BROMIDE 62.5 MCG/DOSE IH SCH (09:56)
[2019-09-01] MEDS: OXYCODONE-ACETAMINOPHEN 5-325 MG TABLET PO PRN (10:05)
[2019-09-01] MEDS ORDERED: GLUCAGON,HUMAN RECOMB 1 MG INJ SUBCUT PRN (13:21)
[2019-09-01] MEDS ORDERED: DEXTROSE 40% GEL 15 GM TUBE PO PRN ×2 (13:21)
[2019-09-01] MEDS ORDERED: DEXTROSE 50%-WATER 25 GM/50 ML DISP.SYRIN IV PRN ×2 (13:21)
--- NOTE | 2019-09-01 13:28 | PDOC PROGRESS REPORT ---
Subjective Progress Note for:: 09/01/19 Subjective:: No chest pain. Patient remain on supplemental oxygen via nasal cannula and BiPAP support while sleeping. No fever or chills. No nausea, vomiting, or abdominal pain. Reason For Visit: ACUTE EXACERBATION OF COPD ANEMIA WITH NEED FOR Physical Exam Vital Signs: Temp Pulse Resp BP Pulse Ox 98.4 F 124 H 20 96/42 L 94 09/01/19 07:43 09/01/19 12:00 09/01/19 12:00 09/01/19 07:43 09/01/19 12:00 Pulse Oximeter Continuous Start: 08/25/19 05:32 Freq: RTQ4 Status: Active Protocol: Document 09/01/19 12:00 NSM (Rec: 09/01/19 12:13 NSM [id number]) Pulse Oximetry Assessment Oxygen Saturation (92-100) 94 Oxygen Flow Rate (L/min) 3 Oxygen Delivery Method Nasal Cannula Fraction of Inspired Oxygen (FIO2) 32 Equipment Usage Equipment in Use Continuous SpO2 Machine # [id number] Intake & Output 08/31/19 09/01/19 09/02/19 06:59 06:59 06:59 Intake Total 690 500 Balance 690 500 Weight 44.6 kg Physical Exam: General appearance: PRESENT: mild distress - remain on nasal cannula supplemental oxygen and intermittent use of BiPAP while sleeping, thin Head exam: PRESENT: atraumatic, normocephalic Eye exam: PRESENT: conjunctiva pink. ABSENT: pallor, scleral icterus Ear exam: PRESENT: normal external ear exam Mouth exam: PRESENT: moist Teeth exam: PRESENT: poor dentition Neck exam: PRESENT: lymphadenopathy - left supraclavicular fossa region Respiratory exam: PRESENT: decreased breath sounds, rhonchi - expiratory phase Cardiovascular exam: PRESENT: irregular rhythm, +S1, +S2, systolic murmur - LLSB region. ABSENT: diastolic murmur, gallop GI/Abdominal exam: PRESENT: normal bowel sounds, soft. ABSENT: distended, guarding, mass, organomegaly, rebound, tenderness Extremities exam: PRESENT: pedal edema - bilateral upper extremities, PICC line access left arm Neurological exam: PRESENT: alert, awake, oriented to person, oriented to place, oriented to time, oriented to situation, CN II-XII grossly intact. ABSENT: motor sensory deficit Psychiatric exam: PRESENT: appropriate affect, normal mood. ABSENT: homicidal ideation, suicidal ideation Skin exam: PRESENT: dry, warm Results Laboratory Results: 09/01/19 06:51 08/31/19 06:10 09/01/19 06:51 WBC 11.7 H RBC 3.30 L Hgb 9.3 L Hct 29.7 L MCV 90 MCH 28.3 MCHC 31.3 L RDW 21.9 H Plt Count 295 Impressions: Venous Doppler Study 08/21/19 00:00 IMPRESSION: No right jugular lower pole upper extremity venous thrombosis Incompletely occlusive mixed echogenicity clot in the left internal jugular vein No flow is identified in the left arm cephalic vein which is diffusely small 3.8 x 3.6 x 3 cm soft tissue mass in the left supraclavicular region adjacent to the thrombosed IJ vein. This could represent an enlarged lymph node Chest CT 08/23/19 08:00 IMPRESSION: Upper mediastinal adenopathy with mass-effect on venous structures, left internal jugular vein is incompletely occluded with clot on Doppler exam 08/21/2019. Large right peritracheal lymph node in the upper mediastinum may have significant mass effect on the superior vena cava. Follow-up contrast CT is recommended Lung parenchyma abnormal, with probable alveolar and interstitial edema. Multifocal pneumonia versus pulmonary infarcts. Trace pleural effusions. Carotid Doppler Study 08/25/19 00:00 IMPRESSION: Complete occlusion of the right internal carotid artery with near complete occlusion of the carotid bulb. Greater than 70% stenosis of the left common carotid artery on the basis of mixed plaque. 50 to 69% occlusion of the left internal carotid artery on the basis of mixed plaque. Elevated left vertebral artery velocities. Chest/Abdomen CTA 08/25/19 00:00 IMPRESSION: Poor contrast enhancement of the proximal right common carotid artery. Findings could indicate thrombosis/stenosis. Findings discussed with attending physician, follow-up carotid Doppler will be performed shortly Malignant appearing mediastinal adenopathy Further collapse and consolidation of the bilateral lower lobes compared to 08/23/2019. Small pleural effusions are slightly increased compared to 08/23/2019 Guidance Fluoroscopy 08/25/19 00:00 IMPRESSION: Please see combined report for performance of procedure and radiologic supervision and interpretation. Interventional Vascular Procedure 08/25/19 00:00 IMPRESSION: SUCCESSFUL PLACEMENT OF A 5 FR DUAL LUMEN 27 CM PICC IN THE LEFT BASILIC VEIN. PICC Line Insertion 08/25/19 00:00 IMPRESSION: SUCCESSFUL PLACEMENT OF A 5 FR DUAL LUMEN 27 CM PICC IN THE LEFT BASILIC VEIN. Chest X-Ray 08/31/19 06:00 IMPRESSION: Bilateral pneumonia or asymmetric edema. No significant change. Assessment & Plan - Diagnosis (1) Anemia requiring transfusions Is this a current diagnosis for this admission?: Yes (2) COPD with exacerbation Is this a current diagnosis for this admission?: Yes (3) Chronic atrial fibrillation Is this a current diagnosis for this admission?: Yes (4) Chronic diastolic CHF (congestive heart failure) Is this a current diagnosis for this admission?: Yes (5) HLD (hyperlipidemia) Qualifiers: Hyperlipidemia type: unspecified Qualified Code(s): E78.5 - Hyperlipidemia, unspecified Is this a current diagnosis for this admission?: Yes (6) HTN (hypertension) Qualifiers: Hypertension type: essential hypertension Qualified Code(s): I10 - Essential (primary) hypertension Is this a current diagnosis for this admission?: Yes (7) Cephalic vein thrombosis, left Is this a current diagnosis for this admission?: Yes (8) Enlarged lymph node in neck Is this a current diagnosis for this admission?: Yes (9) Internal jugular vein thrombosis Qualifiers: Laterality: left Qualified Code(s): I82.C12 - Acute embolism and thrombosis of left internal jugular vein Is this a current diagnosis for this admission?: Yes (10) Acute and chronic respiratory failure with hypoxia Is this a current diagnosis for this admission?: Yes (11) Bilateral stenosis of carotid arteries greater than 50% Is this a current diagnosis for this admission?: Yes (12) Lymphadenopathy, mediastinal Is this a current diagnosis for this admission?: Yes (13) Lymphadenopathy, supraclavicular Is this a current diagnosis for this admission?: Yes (14) Laryngeal candidiasis Is this a current diagnosis for this admission?: Yes - Time Time Spent with patient: 25-34 minutes Level of Care: MEDICAL Medications reviewed and adjusted accordingly: Yes Anticipated discharge: Home with Homehealth Within: Other - Inpatient Certification Based on my medical assessment, after consideration of the patient's comorbidities, presenting symptoms, or acuity I expect that the services needed warrant INPATIENT care.: Yes I certify that my determination is in accordance with my understanding of Medicare's requirements for reasonable and necessary INPATIENT services [42 CFR 412.3e].: Yes Medical Necessity: Significant Comorbidiites Make Outpatient Treatment Too Risky, Need Close Monitoring Due to Risk of Patient Decompensation, Need For Continuous Telemetry Monitoring, Risk of Complication if Not Cared For in Hospital, Risk of Diagnosis Which Will Require Inpatient Eval/Care/Monitoring Post Hospital Care: D/C Impregnation Operator Documentation - Plan Summary Plan Summary: I discussed case with Dr. Matta, interventional radiologist, and Dr. Ruiz, finishing machine tender, earlier today., We will hold Eliquis today for possible US guided biopsy of the left supraclavicular enlarged lymph node tomorrow. Follow up on finishing machine tender recommendation. Continue all other medication management. Keep NPO after 12 midnight. Obtain PT/INR, aPTT
[2019-09-01] MEDS: ATORVASTATIN CALCIUM 40 MG TABLET PO SCH (21:24)
[2019-09-01] MEDS: LATANOPROST 0.005% OPH SOLN 2.5 ML OU SCH (21:26)
[2019-09-02] MEDS: OXYCODONE HCL IR 5 MG TABLET PO PRN ×2 (00:39→16:16)
[2019-09-02] MEDS: OXYCODONE-ACETAMINOPHEN 5-325 MG TABLET PO PRN ×2 (00:40→16:16)
[2019-09-02] MEDS: DILTIAZEM HCL 30 MG TABLET PO SCH ×5 (00:48→23:41)
[2019-09-02] MEDS: ALBUTEROL SULFATE 0.083% NEB 2.5 MG/3 ML AMPUL NEB SCH ×6 (03:50→20:23)
[2019-09-02] MEDS: GABAPENTIN 300 MG CAPSULE PO SCH ×3 (08:34→21:20)
[2019-09-02] MEDS: PANTOPRAZOLE SODIUM 40 MG TABLET.DR PO SCH (08:34)
[2019-09-02 10:29] LABS: INTERNATIONAL RATION (INR) 1.54; PROTHROMBIN TIME 18.6 SEC (11.4-15.4)
[2019-09-02 10:30] LABS: PARTIAL THROMBOPLASTIN TIME 36.2 SEC (23.5-35.8)
[2019-09-02] MEDS: FLUTICASONE/VILANTEROL 200-25 MCG/DOSE IH SCH (10:55)
[2019-09-02] MEDS: METOPROLOL TARTRATE 25 MG TABLET PO SCH ×2 (10:56→21:25)
[2019-09-02] MEDS: POTASSIUM CHLORIDE 20 MEQ PACKET PO SCH (11:10)
[2019-09-02] MEDS: MULTIVITAMINS W-IRON TABLET, CHEWABLE PO SCH (11:10)
[2019-09-02] MEDS: DOCUSATE SODIUM 100 MG CAPSULE PO SCH (11:11)
[2019-09-02] MEDS: CITALOPRAM HYDROBROMIDE 20 MG TABLET PO SCH (11:11)
[2019-09-02] MEDS: CALCIUM CARBONATE 250 MG/VITAMIN D3 125 UNIT TABLET PO SCH (11:11)
[2019-09-02] MEDS: NORMAL SALINE 10 ML SDV (SCHEDULED) IV SCH ×2 (11:12→21:26)
[2019-09-02] MEDS: FLUCONAZOLE 100 MG TABLET PO SCH (11:13)
[2019-09-02] MEDS: VALSARTAN 40 MG TABLET PO SCH (11:14)
[2019-09-02] MEDS: UMECLIDINIUM BROMIDE 62.5 MCG/DOSE IH SCH (11:15)
[2019-09-02] MEDS ORDERED: METOPROLOL TARTRATE 25 MG TABLET PO ONE (13:30)
--- NOTE | 2019-09-02 18:53 | PDOC PROGRESS REPORT ---
Subjective Progress Note for:: 09/02/19 Subjective:: Patient remain on supplemental oxygen via nasal cannula and BiPAP support while sleeping. No chest pain. No fever or chills. No nausea, vomiting, or abdominal pain. Left supraclavicular soft tissue biopsy on hold today due to elevated PT/INR and aPTT. Reason For Visit: ACUTE EXACERBATION OF COPD ANEMIA WITH NEED FOR Physical Exam Vital Signs: Temp Pulse Resp BP Pulse Ox 97.5 F 111 H 18 123/97 H 93 09/02/19 15:45 09/02/19 17:26 09/02/19 17:26 09/02/19 15:45 09/02/19 17:26 Pulse Oximeter Continuous Start: 08/25/19 05:32 Freq: RTQ4 Status: Active Protocol: Document 09/02/19 17:26 YASMANYM (Rec: 09/02/19 17:29 NS [id number]) Pulse Oximetry Assessment Oxygen Saturation (92-100) 93 Oxygen Flow Rate (L/min) 3 Oxygen Delivery Method Nasal Cannula Fraction of Inspired Oxygen (FIO2) 32 Equipment Usage Equipment in Use Continuous SpO2 Machine # [id number] Intake & Output 09/01/19 09/02/19 09/03/19 06:59 06:59 06:59 Intake Total 500 1926 500 Balance 500 1926 500 Weight 44.6 kg 47.8 kg Physical Exam: General appearance: PRESENT: mild distress - remain on nasal cannula supplemental oxygen and intermittent use of BiPAP while sleeping, thin Head exam: PRESENT: atraumatic, normocephalic Eye exam: PRESENT: conjunctiva pink. ABSENT: pallor, scleral icterus Ear exam: PRESENT: normal external ear exam Mouth exam: PRESENT: moist Teeth exam: PRESENT: poor dentition Neck exam: PRESENT: lymphadenopathy - left supraclavicular fossa region Respiratory exam: PRESENT: decreased breath sounds, rhonchi - expiratory phase Cardiovascular exam: PRESENT: irregular rhythm, +S1, +S2, systolic murmur - LLSB region. ABSENT: diastolic murmur, gallop GI/Abdominal exam: PRESENT: normal bowel sounds, soft. ABSENT: distended, guarding, mass, organomegaly, rebound, tenderness Extremities exam: PRESENT: improved upper extremities pedal edema, PICC line access left arm Neurological exam: PRESENT: alert, awake, oriented to person, oriented to place, oriented to time, oriented to situation, CN II-XII grossly intact. ABSENT: motor sensory deficit Psychiatric exam: PRESENT: appropriate affect, normal mood. ABSENT: homicidal ideation, suicidal ideation Skin exam: PRESENT: dry, warm Results Laboratory Results: 09/01/19 06:51 08/31/19 06:10 Impressions: Venous Doppler Study 08/21/19 00:00 IMPRESSION: No right jugular lower pole upper extremity venous thrombosis Incompletely occlusive mixed echogenicity clot in the left internal jugular vein No flow is identified in the left arm cephalic vein which is diffusely small 3.8 x 3.6 x 3 cm soft tissue mass in the left supraclavicular region adjacent to the thrombosed IJ vein. This could represent an enlarged lymph node Chest CT 08/23/19 08:00 IMPRESSION: Upper mediastinal adenopathy with mass-effect on venous structures, left internal jugular vein is incompletely occluded with clot on Doppler exam 08/21/2019. Large right peritracheal lymph node in the upper mediastinum may have significant mass effect on the superior vena cava. Follow-up contrast CT is recommended Lung parenchyma abnormal, with probable alveolar and interstitial edema. Mu ltifocal pneumonia versus pulmonary infarcts. Trace pleural effusions. Carotid Doppler Study 08/25/19 00:00 IMPRESSION: Complete occlusion of the right internal carotid artery with near complete occlusion of the carotid bulb. Greater than 70% stenosis of the left common carotid artery on the basis of mixed plaque. 50 to 69% occlusion of the left internal carotid artery on the basis of mixed plaque. Elevated left vertebral artery velocities. Chest/Abdomen CTA 08/25/19 00:00 IMPRESSION: Poor contrast enhancement of the proximal right common carotid artery. Findings could indicate thrombosis/stenosis. Findings discussed with attending physician, follow-up carotid Doppler will be performed shortly Malignant appearing mediastinal adenopathy Further collapse and consolidation of the bilateral lower lobes compared to 08/23/2019. Small pleural effusions are slightly increased compared to 08/23/2019 Guidance Fluoroscopy 08/25/19 00:00 IMPRESSION: Please see combined report for performance of procedure and radiologic supervision and interpretation. Interventional Vascular Procedure 08/25/19 00:00 IMPRESSION: SUCCESSFUL PLACEMENT OF A 5 FR DUAL LUMEN 27 CM PICC IN THE LEFT BASILIC VEIN. PICC Line Insertion 08/25/19 00:00 IMPRESSION: SUCCESSFUL PLACEMENT OF A 5 FR DUAL LUMEN 27 CM PICC IN THE LEFT BASILIC VEIN. Chest X-Ray 08/31/19 06:00 IMPRESSION: Bilateral pneumonia or asymmetric edema. No significant change. Assessment & Plan - Diagnosis (1) Anemia requiring transfusions Is this a current diagnosis for this admission?: Yes (2) COPD with exacerbation Is this a current diagnosis for this admission?: Yes (3) Chronic atrial fibrillation Is this a current diagnosis for this admission?: Yes (4) Chronic diastolic CHF (congestive heart failure) Is this a current diagnosis for this admission?: Yes (5) HLD (hyperlipidemia) Qualifiers: Hyperlipidemia type: unspecified Qualified Code(s): E78.5 - Hyperlipidemia, unspecified Is this a current diagnosis for this admission?: Yes (6) HTN (hypertension) Qualifiers: Hypertension type: essential hypertension Qualified Code(s): I10 - Essential (primary) hypertension Is this a current diagnosis for this admission?: Yes (7) Cephalic vein thrombosis, left Is this a current diagnosis for this admission?: Yes (8) Enlarged lymph node in neck Is this a current diagnosis for this admission?: Yes (9) Internal jugular vein thrombosis Qualifiers: Laterality: left Qualified Code(s): I82.C12 - Acute embolism and thrombosis of left internal jugular vein Is this a current diagnosis for this admission?: Yes (10) Acute and chronic respiratory failure with hypoxia Is this a current diagnosis for this admission?: Yes (11) Bilateral stenosis of carotid arteries greater than 50% Is this a current diagnosis for this admission?: Yes (12) Lymphadenopathy, mediastinal Is this a current diagnosis for this admission?: Yes (13) Lymphadenopathy, supraclavicular Is this a current diagnosis for this admission?: Yes (14) Laryngeal candidiasis Is this a current diagnosis for this admission?: Yes - Time Time Spent with patient: 25-34 minutes Level of Care: TELE Medications reviewed and adjusted accordingly: Yes Anticipated discharge: Home with Homehealth Within: Other - Inpatient Certification Based on my medical assessment, after consideration of the patient's comorbidities, presenting symptoms, or acuity I expect that the services needed warrant INPATIENT care.: Yes I certify that my determination is in accordance with my understanding of Medicare's requirements for reasonable and necessary INPATIENT services [42 CFR 412.3e].: Yes Medical Necessity: Significant Comorbidiites Make Outpatient Treatment Too Risky, Need Close Monitoring Due to Risk of Patient Decompensation, Need For Continuous Telemetry Monitoring, Need for Nebulizer Therapy and Monitoring of Response, Risk of Complication if Not Cared For in Hospital, Risk of Diagnosis Which Will Require Inpatient Eval/Care/Monitoring Post Hospital Care: D/C Utility Worker Driver Documentation - Plan Summary Plan Summary: Continue to hold Eliquis. Repeat PT/INR and aPTT in am. Possible biopsy tomorrow if coagulation indices improved. Continue all other medication management. I discontinue her venlafaxine yesterday. discussed case with Dr. Ruiz earlier today with plan to look forward to bronchoscopy if her planned biopsy do not resolve in definite diagnosis.
[2019-09-02] MEDS: LATANOPROST 0.005% OPH SOLN 2.5 ML OU SCH (21:23)
[2019-09-02] MEDS: ATORVASTATIN CALCIUM 40 MG TABLET PO SCH (21:25)
[2019-09-03] MEDS: ALBUTEROL SULFATE 0.083% NEB 2.5 MG/3 ML AMPUL NEB SCH ×6 (00:02→20:14)
[2019-09-03] MEDS: GABAPENTIN 300 MG CAPSULE PO SCH ×3 (06:30→22:35)
[2019-09-03] MEDS: DILTIAZEM HCL 30 MG TABLET PO SCH ×3 (06:31→18:03)
[2019-09-03] MEDS: PANTOPRAZOLE SODIUM 40 MG TABLET.DR PO SCH (06:31)
[2019-09-03 07:23] LABS: HEMOGLOBIN 9.8 g/dL (12.0-15.5); MEAN CORPUSCULAR HEMOGLOBIN 28.4 pg (27.0-33.4); MEAN CORPUSCULAR HGB CONC 31.7 g/dL (32.0-36.0); MEAN CORPUSCULAR VOLUME 90 fl (80-97); PLATELET COUNT 334 10^3/uL (150-450); RED BLOOD COUNT 3.46 10^6/uL (3.72-5.28); WHITE BLOOD COUNT 15.5 10^3/uL (4.0-10.5)
[2019-09-03 07:48] LABS: INTERNATIONAL RATION (INR) 1.31; PROTHROMBIN TIME 16.4 SEC (11.4-15.4)
[2019-09-03 07:49] LABS: PARTIAL THROMBOPLASTIN TIME 35.9 SEC (23.5-35.8)
[2019-09-03] MEDS: MULTIVITAMINS W-IRON TABLET, CHEWABLE PO SCH (12:17)
[2019-09-03] MEDS: FLUTICASONE/VILANTEROL 200-25 MCG/DOSE IH SCH (12:17)
[2019-09-03] MEDS: UMECLIDINIUM BROMIDE 62.5 MCG/DOSE IH SCH (12:17)
[2019-09-03] MEDS: DOCUSATE SODIUM 100 MG CAPSULE PO SCH (12:17)
[2019-09-03] MEDS: FLUCONAZOLE 100 MG TABLET PO SCH (12:17)
[2019-09-03] MEDS: CITALOPRAM HYDROBROMIDE 20 MG TABLET PO SCH (12:17)
[2019-09-03] MEDS: VALSARTAN 40 MG TABLET PO SCH (12:17)
[2019-09-03] MEDS: CALCIUM CARBONATE 250 MG/VITAMIN D3 125 UNIT TABLET PO SCH (12:18)
[2019-09-03] MEDS: POTASSIUM CHLORIDE 20 MEQ PACKET PO SCH (12:18)
[2019-09-03] MEDS: METOPROLOL TARTRATE 25 MG TABLET PO SCH ×2 (12:18→22:48)
[2019-09-03] MEDS: NORMAL SALINE 10 ML SDV (SCHEDULED) IV SCH ×2 (14:01→23:46)
--- NOTE | 2019-09-03 15:30 | PDOC PROGRESS REPORT ---
Subjective Progress Note for:: 09/03/19 Subjective:: Patient remain on supplemental oxygen via nasal cannula and BiPAP support while sleeping. No chest pain. No fever or chills. No nausea, vomiting, or abdominal pain. s/p left supraclavicular soft tissue biopsy. Reason For Visit: ACUTE EXACERBATION OF COPD ANEMIA WITH NEED FOR Physical Exam Vital Signs: Temp Pulse Resp BP Pulse Ox 98.1 F 82 18 118/47 L 90 L 09/03/19 11:26 09/03/19 12:03 09/03/19 12:03 09/03/19 11:09/03/19 12:03 Pulse Oximeter Continuous Start: 08/25/19 05:32 Freq: RTQ4 Status: Active Protocol: Document 09/03/19 12:03 LATISHA (Rec: 09/03/19 12:08 [email or web address] [id number]) Pulse Oximetry Assessment Oxygen Saturation (92-100) 90 Oxygen Flow Rate (L/min) 3 Oxygen Delivery Method Nasal Cannula Equipment Usage Equipment in Use Continuous SpO2 Machine # 11 Intake & Output 09/02/19 09/03/19 09/04/19 06:59 06:59 06:59 Intake Total 1926 1150 Output Total 0 Balance 1926 1150 Weight 47.8 kg 43.6 kg Physical Exam: General appearance: PRESENT: mild distress - remain on nasal cannula supplemental oxygen and intermittent use of BiPAP while sleeping, thin Head exam: PRESENT: atraumatic, normocephalic Eye exam: PRESENT: conjunctiva pink. ABSENT: pallor, scleral icterus Ear exam: PRESENT: normal external ear exam Mouth exam: PRESENT: moist Teeth exam: PRESENT: poor dentition Neck exam: PRESENT: lymphadenopathy - left supraclavicular fossa region Respiratory exam: PRESENT: decreased breath sounds, rhonchi - expiratory phase Cardiovascular exam: PRESENT: irregular rhythm, +S1, +S2, systolic murmur - LLSB region. ABSENT: diastolic murmur, gallop GI/Abdominal exam: PRESENT: normal bowel sounds, soft. ABSENT: distended, guarding, mass, organomegaly, rebound, tenderness Extremities exam: PRESENT: improved upper extremities pedal edema, PICC line access left arm Neurological exam: PRESENT: alert, awake, oriented to person, oriented to place, oriented to time, oriented to situation, CN II-XII grossly intact. ABSENT: motor sensory deficit Psychiatric exam: PRESENT: appropriate affect, normal mood. ABSENT: homicidal ideation, suicidal ideation Skin exam: PRESENT: dry, warm, dressing over biopsy site satisfactory. Results Laboratory Results: 09/03/19 06:50 08/31/19 06:10 09/03/19 06:50 WBC 15.5 H RBC 3.46 L Hgb 9.8 L Hct 31.0 L MCV 90 MCH 28.4 MCHC 31.7 L RDW 22.0 H Plt Count 334 Impressions: Venous Doppler Study 08/21/19 00:00 IMPRESSION: No right jugular lower pole upper extremity venous thrombosis Incompletely occlusive mixed echogenicity clot in the left internal jugular vein No flow is identified in the left arm cephalic vein which is diffusely small 3.8 x 3.6 x 3 cm soft tissue mass in the left supraclavicular region adjacent to the thrombosed IJ vein. This could represent an enlarged lymph node Chest CT 08/23/19 08:00 IMPRESSION: Upper mediastinal adenopathy with mass-effect on venous structures, left internal jugular vein is incompletely occluded with clot on Doppler exam 08/21/2019. Large right peritracheal lymph node in the upper mediastinum may have significant mass effect on the superior vena cava. Follow-up contrast CT is recommended Lung parenchyma abnormal, with probable alveolar and interstitial edema. Multifocal pneumonia versus pulmonary infarcts. Trace pleural effusions. Carotid Doppler Study 08/25/19 00:00 IMPRESSION: Complete occlusion of the right internal carotid artery with near complete occlusion of the carotid bulb. Greater than 70% stenosis of the left common carotid artery on the basis of mixed plaque. 50 to 69% occlusion of the left internal carotid artery on the basis of mixed plaque. Elevated left vertebral artery velocities. Chest/Abdomen CTA 08/25/19 00:00 IMPRESSION: Poor contrast enhancement of the proximal right common carotid artery. Findings could indicate thrombosis/stenosis. Findings discussed with attending physician, follow-up carotid Doppler will be performed shortly Malignant appearing mediastinal adenopathy Further collapse and consolidation of the bilateral lower lobes compared to 08/23/2019. Small pleural effusions are slightly increased compared to Guidance Fluoroscopy 08/25/19 00:00 IMPRESSION: Please see combined report for performance of procedure and radiologic supervision and interpretation. Interventional Vascular Procedure 08/25/19 00:00 IMPRESSION: SUCCESSFUL PLACEMENT OF A 5 FR DUAL LUMEN 27 CM PICC IN THE LEFT BASILIC VEIN. PICC Line Insertion 08/25/19 00:00 IMPRESSION: SUCCESSFUL PLACEMENT OF A 5 FR DUAL LUMEN 27 CM PICC IN THE LEFT BASILIC VEIN. Chest X-Ray 08/31/19 06:00 IMPRESSION: Bilateral pneumonia or asymmetric edema. No significant change. Assessment & Plan - Diagnosis (1) Anemia requiring transfusions Is this a current diagnosis for this admission?: Yes (2) COPD with exacerbation Is this a current diagnosis for this admission?: Yes (3) Chronic atrial fibrillation Is this a current diagnosis for this admission?: Yes (4) Chronic diastolic CHF (congestive heart failure) Is this a current diagnosis for this admission?: Yes (5) HLD (hyperlipidemia) Qualifiers: Hyperlipidemia type: unspecified Qualified Code(s): E78.5 - Hyperlipidemia, unspecified Is this a current diagnosis for this admission?: Yes (6) HTN (hypertension) Qualifiers: Hypertension type: essential hypertension Qualified Code(s): I10 - Essential (primary) hypertension Is this a current diagnosis for this admission?: Yes (7) Cephalic vein thrombosis, left Is this a current diagnosis for this admission?: Yes (8) Enlarged lymph node in neck Is this a current diagnosis for this admission?: Yes (9) Internal jugular vein thrombosis Qualifiers: Laterality: left Qualified Code(s): I82.C12 - Acute embolism and thrombosis of left internal jugular vein Is this a current diagnosis for this admission?: Yes (10) Acute and chronic respiratory failure with hypoxia Is this a current diagnosis for this admission?: Yes (11) Bilateral stenosis of carotid arteries greater than 50% Is this a current diagnosis for this admission?: Yes (12) Lymphadenopathy, mediastinal Is this a current diagnosis for this admission?: Yes (13) Lymphadenopathy, supraclavicular Is this a current diagnosis for this admission?: Yes (14) Laryngeal candidiasis Is this a current diagnosis for this admission?: Yes - Time Time Spent with patient: 25-34 minutes Level of Care: IMCU Medications reviewed and adjusted accordingly: Yes Anticipated discharge: Home Within: Other - Inpatient Certification Based on my medical assessment, after consideration of the patient's c omorbidities, presenting symptoms, or acuity I expect that the services needed warrant INPATIENT care.: Yes I certify that my determination is in accordance with my understanding of Medicare's requirements for reasonable and necessary INPATIENT services [42 CFR 412.3e].: Yes Medical Necessity: Significant Comorbidiites Make Outpatient Treatment Too Risky, Need Close Monitoring Due to Risk of Patient Decompensation, Need For Continuous Telemetry Monitoring, Need for Nebulizer Therapy and Monitoring of Response, Risk of Complication if Not Cared For in Hospital, Risk of Diagnosis Which Will Require Inpatient Eval/Care/Monitoring 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 Follow up on biopsy findings.
--- NOTE | 2019-09-03 15:54 | RADIOLOGY REPORT (SQ) ---
EXAM DESCRIPTION: U/S BIOPSY SUPERFIC LYMPH NODE COMPLETED DATE/TIME: 09/03/2019 2:56 pm REASON FOR STUDY: Left supraclavicular soft tissue biopsy COMPARISON: None. TECHNIQUE: The procedure, risks, benefits, and alternatives were discussed with the patient in the p reprocedural area, and all questions were answered. Informed consent was obtained verbally and in wri ting. The patient was then brought to the ultrasound suite, positioned supine on a gurney, and a time-out w as performed. After that, selected grayscale and color Doppler images of the heterogeneous left supr aclavicular mass were obtained. Based on review of the images an appropriate access site was selected on the skin. The area around selected access site was then prepped and draped 2% chlorhexidine utilizing standard sterile technique. After that, the access site was infiltrated with 1% lidocaine and an incision was made in the skin with a #11 blade. A 17 gauge coaxial needle was then advanced through the skin inci serafin and into the mass utilizing sonographic guidance. After that, the inner stylet of the coaxial ne edle was removed and 5 18 gauge core samples were obtained of the mass - the samples were collected a nd submitted to cytopathology. The coaxial needle was then removed and selected grayscale and color Doppler images of the mass were repeated and reviewed ; the images demonstrated no acute biopsy-related complication. The patient tolerated the procedure well with local anesthesia. At the end of the procedure the patient's condition was unchanged from the preprocedural baseline. Documentation of [id number] time the proceduralist spent monitoring the patient: 25 minutes. RADIATION DOSE: N/A. LIMITATIONS: None. FINDINGS: Integrated into the Technique. IMPRESSION: Successful ultrasound-guided biopsy of the heterogeneous left supraclavicular mass. TECHNICAL DOCUMENTATION: JOB ID: [id number] [employer]- All Rights Reserved Reading location - IP/workstation name: [email or web address]
[2019-09-03] MEDS: OXYCODONE HCL IR 5 MG TABLET PO PRN (17:59)
[2019-09-03] MEDS: OXYCODONE-ACETAMINOPHEN 5-325 MG TABLET PO PRN (17:59)
[2019-09-03] MEDS: LATANOPROST 0.005% OPH SOLN 2.5 ML OU SCH (22:48)
[2019-09-03] MEDS: ATORVASTATIN CALCIUM 40 MG TABLET PO SCH (22:48)
[2019-09-04] MEDS: DILTIAZEM HCL 30 MG TABLET PO SCH ×4 (00:04→19:50)
[2019-09-04] MEDS: ALBUTEROL SULFATE 0.083% NEB 2.5 MG/3 ML AMPUL NEB SCH ×6 (00:22→20:37)
[2019-09-04] MEDS: PANTOPRAZOLE SODIUM 40 MG TABLET.DR PO SCH (05:30)
[2019-09-04] MEDS: GABAPENTIN 300 MG CAPSULE PO SCH ×3 (05:32→22:35)
--- NOTE | 2019-09-04 10:30 | PDOC PROGRESS REPORT ---
Subjective Progress Note for:: 09/04/19 Subjective:: Patient is currently doing fair Patient here for the long times I saw it last time patient was transferred to the ICU and intubated Reviewed all records since last visit mine Patient had a lymph node biopsy was done pending pathology No chest pain no short of breath Reason For Visit: ACUTE EXACERBATION OF COPD ANEMIA WITH NEED FOR Physical Exam Vital Signs: Temp Pulse Resp BP Pulse Ox 98.6 F 86 16 142/76 H 94 09/04/19 07:36 09/04/19 08:15 09/04/19 08:15 09/04/19 07:36 09/04/19 08:15 Pulse Oximeter Continuous Start: 08/25/19 05:32 Freq: RTQ4 Status: Active Protocol: Document 09/04/19 08:15 LDA (Rec: 09/04/19 09:27 LDA [id number]) Pulse Oximetry Assessment Oxygen Saturation (92-100) 94 Oxygen Flow Rate (L/min) 3 Oxygen Delivery Method Nasal Cannula Fraction of Inspired Oxygen (FIO2) 32 Equipment Usage Equipment in Use Continuous SpO2 Machine # [id number] Intake & Output 09/03/19 09/04/19 09/05/19 06:59 06:59 06:59 Intake Total 1150 1190 Output Total 0 Balance 1150 1190 Weight 43.6 kg 45.6 kg General appearance: PRESENT: no acute distress Head exam: PRESENT: atraumatic, normocephalic Eye exam: PRESENT: conjunctiva pink, EOMI, PERRLA. ABSENT: scleral icterus Ear exam: PRESENT: normal external ear exam Mouth exam: PRESENT: moist, tongue midline Neck exam: PRESENT: full ROM. ABSENT: carotid bruit, JVD, lymphadenopathy, thyromegaly Respiratory exam: PRESENT: clear to auscultation leslie Cardiovascular exam: PRESENT: RRR. ABSENT: diastolic murmur, rubs, systolic murmur Pulses: PRESENT: normal dorsalis pedis pul, +2 pedal pulses bilateral Vascular exam: PRESENT: normal capillary refill GI/Abdominal exam: PRESENT: normal bowel sounds, soft. ABSENT: distended, guarding, mass, organolmegaly, rebound, tenderness Rectal exam: PRESENT: deferred Neurological exam: PRESENT: alert, awake, oriented to person, oriented to place. ABSENT: motor sensory deficit Psychiatric exam: PRESENT: appropriate affect, normal mood. ABSENT: homicidal ideation, suicidal ideation Skin exam: PRESENT: dry, intact, warm. ABSENT: cyanosis, rash Results Laboratory Results: 09/03/19 06:50 08/31/19 06:10 Impressions: Venous Doppler Study 08/21/19 00:00 IMPRESSION: No right jugular lower pole upper extremity venous thrombosis Incompletely occlusive mixed echogenicity clot in the left internal jugular vein No flow is identified in the left arm cephalic vein which is diffusely small 3.8 x 3.6 x 3 cm soft tissue mass in the left supraclavicular region adjacent to the thrombosed IJ vein. This could represent an enlarged lymph node Chest CT 08/23/19 08:00 IMPRESSION: Upper mediastinal adenopathy with mass-effect on venous structures, left internal jugular vein is incompletely occluded with clot on Doppler exam 08/21/2019. Large right peritracheal lymph node in the upper mediastinum may have significant mass effect on the superior vena cava. Follow-up contrast CT is recommended Lung parenchyma abnormal, with probable alveolar and interstitial edema. Multifocal pneumonia versus pulmonary infarcts. Trace pleural effusions. Carotid Doppler Study 08/25/19 00:00 IMPRESSION: Complete occlusion of the right internal carotid artery with near complete occlusion of the carotid bulb. Greater than 70% stenosis of the left common carotid artery on the basis of mixed plaque. 50 to 69% occlusion of the left internal carotid artery on the basis of mixed plaque. Elevated left vertebral artery velocities. Chest/Abdomen CTA 08/25/19 00:00 IMPRESSION: Poor contrast enhancement of the proximal right common carotid artery. Findings could indicate thrombosis/stenosis. Findings discussed with attending physician, follow-up carotid Doppler will be performed shortly Malignant appearing mediastinal adenopathy Further collapse and consolidation of the bilateral lower lobes compared to 08/23/2019. Small pleural effusions are slightly increased compared to 2018 Guidance Fluoroscopy 08/25/19 00:00 IMPRESSION: Please see combined report for performance of procedure and radiologic supervision and interpretation. Interventional Vascular Procedure 08/25/19 00:00 IMPRESSION: SUCCESSFUL PLACEMENT OF A 5 FR DUAL LUMEN 27 CM PICC IN THE LEFT BASILIC VEIN. PICC Line Insertion 08/25/19 00:00 IMPRESSION: SUCCESSFUL PLACEMENT OF A 5 FR DUAL LUMEN 27 CM PICC IN THE LEFT BASILIC VEIN. Chest X-Ray 08/31/19 06:00 IMPRESSION: Bilateral pneumonia or asymmetric edema. No significant change. Lymph Node Biopsy Ultrasound 09/03/19 08:00 IMPRESSION: Successful ultrasound-guided biopsy of the heterogeneous left s upraclavicular mass. Assessment & Plan - Diagnosis (1) COPD with exacerbation Is this a current diagnosis for this admission?: Yes (2) Anemia requiring transfusions Is this a current diagnosis for this admission?: Yes (3) CAD (coronary artery disease) Qualifiers: Coronary Disease-Associated Artery/Lesion type: [place] artery [place] vs. transplanted heart: [place] heart Associated angina: without angina Qualified Code(s): I25.10 - Atherosclerotic heart disease of [place] coronary artery without angina pectoris Is this a current diagnosis for this admission?: Yes (4) Chronic atrial fibrillation Is this a current diagnosis for this admission?: Yes (5) Congestive heart failure (CHF) Qualifiers: Qualified Code(s): I50.32 - Chronic diastolic (congestive) heart failure Is this a current diagnosis for this admission?: Yes (6) HTN (hypertension) Qualifiers: Hypertension type: essential hypertension Qualified Code(s): I10 - Essen tial (primary) hypertension Is this a current diagnosis for this admission?: Yes (7) Pneumonia Qualifiers: Pneumonia type: due to unspecified organism Is this a current diagnosis for this admission?: Yes (8) Acute and chronic respiratory failure ([id number]) Qualifiers: Respiratory failure complication: hypercapnia Qualified Code(s): J96.22 - Acute and chronic respiratory failure with hypercapnia Is this a current diagnosis for this admission?: Yes (9) Bilateral stenosis of carotid arteries greater than 50% Is this a current diagnosis for this admission?: Yes (10) Lymphadenopathy, mediastinal Is this a current diagnosis for this admission?: Yes (11) Lymphadenopathy, supraclavicular Is this a current diagnosis for this admission?: Yes - Time Time Spent with patient: 25-34 minutes Level of Care: IMCU Medications reviewed and adjusted accordingly: Yes Anticipated discharge: Home Within: Other - Plan Summary Plan Summary: Continues the nebulizer treatment continues to current medication
[2019-09-04] MEDS: MULTIVITAMINS W-IRON TABLET, CHEWABLE PO SCH (12:57)
[2019-09-04] MEDS: APIXABAN 5 MG TABLET PO SCH ×2 (12:57→19:51)
[2019-09-04] MEDS: CALCIUM CARBONATE 250 MG/VITAMIN D3 125 UNIT TABLET PO SCH (12:57)
[2019-09-04] MEDS: FLUTICASONE/VILANTEROL 200-25 MCG/DOSE IH SCH (12:58)
[2019-09-04] MEDS: CITALOPRAM HYDROBROMIDE 20 MG TABLET PO SCH (12:58)
[2019-09-04] MEDS: DOCUSATE SODIUM 100 MG CAPSULE PO SCH (12:59)
[2019-09-04] MEDS: FLUCONAZOLE 100 MG TABLET PO SCH (12:59)
[2019-09-04] MEDS: VALSARTAN 40 MG TABLET PO SCH (13:01)
[2019-09-04] MEDS: UMECLIDINIUM BROMIDE 62.5 MCG/DOSE IH SCH (13:02)
[2019-09-04] MEDS: NORMAL SALINE 10 ML SDV (SCHEDULED) IV SCH ×2 (13:03→22:40)
[2019-09-04] MEDS: POTASSIUM CHLORIDE 20 MEQ PACKET PO SCH (13:05)
[2019-09-04] MEDS: METOPROLOL TARTRATE 25 MG TABLET PO SCH ×2 (13:06→22:37)
[2019-09-04] MEDS: OXYCODONE HCL IR 5 MG TABLET PO PRN ×2 (13:25→20:00)
[2019-09-04] MEDS: OXYCODONE-ACETAMINOPHEN 5-325 MG TABLET PO PRN ×2 (13:25→20:00)
[2019-09-04] MEDS: ATORVASTATIN CALCIUM 40 MG TABLET PO SCH (22:37)
[2019-09-05] MEDS: ALBUTEROL SULFATE 0.083% NEB 2.5 MG/3 ML AMPUL NEB SCH ×6 (00:11→20:15)
[2019-09-05] MEDS: LATANOPROST 0.005% OPH SOLN 2.5 ML OU SCH ×2 (01:21→21:35)
[2019-09-05] MEDS: DILTIAZEM HCL 30 MG TABLET PO SCH ×5 (01:42→23:21)
[2019-09-05] MEDS: GABAPENTIN 300 MG CAPSULE PO SCH ×3 (05:27→21:35)
[2019-09-05] MEDS: PANTOPRAZOLE SODIUM 40 MG TABLET.DR PO SCH (05:27)
[2019-09-05 06:31] LABS: HEMATOCRIT 28.6 % (36.0-47.0); MEAN CORPUSCULAR HEMOGLOBIN 28.3 pg (27.0-33.4); MEAN CORPUSCULAR HGB CONC 31.3 g/dL (32.0-36.0); MEAN CORPUSCULAR VOLUME 90 fl (80-97); PLATELET COUNT 304 10^3/uL (150-450); RED BLOOD COUNT 3.17 10^6/uL (3.72-5.28); RED CELL DISTRIBUTION WIDTH 22.3 % (11.5-14.0); WHITE BLOOD COUNT 14.3 10^3/uL (4.0-10.5)
--- NOTE | 2019-09-05 10:40 | PDOC PROGRESS REPORT ---
Subjective Progress Note for:: 09/05/19 Subjective:: Patient is currently doing fair Patient is denied any chest pain no short of breath Patient still sleepy Patient use the BiPAP at night patient's white count is elevated But no fever and not any antibiotic Reason For Visit: ACUTE EXACERBATION OF COPD ANEMIA WITH NEED FOR Physical Exam Vital Signs: Temp Pulse Resp BP Pulse Ox 98.6 F 78 14 137/42 H 95 09/05/19 07:37 09/05/19 08:20 09/05/19 08:20 09/05/19 07:37 09/05/19 08:20 Pulse Oximeter Continuous Start: 08/25/19 05:32 Freq: RTQ4 Status: Active Protocol: Document 09/05/19 08:20 [facility] [place] (Rec: 09/05/19 08:37 [facility] [place] [id number]) Pulse Oximetry Assessment Oxygen Saturation (92-100) 95 Oxygen Flow Rate (L/min) 3 Oxygen Delivery Method Nasal Cannula Fraction of Inspired Oxygen (FIO2) 32 Equipment Usage Equipment in Use Continuous SpO2 Machine # 11 Intake & Output 09/04/19 09/05/19 09/06/19 06:59 06:59 06:59 Intake Total 1190 650 Balance 1190 650 Weight 45.6 kg 42.4 kg General appearance: PRESENT: no acute distress Head exam: PRESENT: atraumatic, normocephalic Eye exam: PRESENT: conjunctiva pink, EOMI, PERRLA. ABSENT: scleral icterus Ear exam: PRESENT: normal external ear exam Mouth exam: PRESENT: moist, tongue midline Neck exam: PRESENT: full ROM. ABSENT: carotid bruit, JVD, lymphadenopathy, thyromegaly Respiratory exam: PRESENT: clear to auscultation leslie Cardiovascular exam: PRESENT: RRR. ABSENT: diastolic murmur, rubs, systolic murmur Vascular exam: PRESENT: normal capillary refill GI/Abdominal exam: PRESENT: normal bowel sounds, soft. ABSENT: distended, guarding, mass, organolmegaly, rebound, tenderness Rectal exam: PRESENT: deferred Neurological exam: PRESENT: alert, awake, oriented to person, oriented to place, oriented to time, oriented to situation, CN II-XII grossly intact. ABSENT: motor sensory deficit Psychiatric exam: PRESENT: appropriate affect, normal mood. ABSENT: homicidal ideation, suicidal ideation Skin exam: PRESENT: dry, intact, warm. ABSENT: cyanosis, rash Results Laboratory Results: 09/05/19 06:00 08/31/19 06:10 09/05/19 06:00 WBC 14.3 H RBC 3.17 L Hgb 9.0 L Hct 28.6 L MCV 90 MCH 28.3 MCHC 31.3 L RDW 22.3 H Plt Count 304 Impressions: Venous Doppler Study 08/21/19 00:00 IMPRESSION: No right jugular lower pole upper extremity venous thrombosis Incompletely occlusive mixed echogenicity clot in the left internal jugular vein No flow is identified in the left arm cephalic vein which is diffusely small 3.8 x 3.6 x 3 cm soft tissue mass in the left supraclavicular region adjacent to the thrombosed IJ vein. This could represent an enlarged lymph node Chest CT 08/23/19 08:00 IMPRESSION: Upper mediastinal adenopathy with mass-effect on venous structures, left internal jugular vein is incompletely occluded with clot on Doppler exam 08/21/2019. Large right peritracheal lymph node in the upper mediastinum may have significant mass effect on the superior vena cava. Follow-up contrast CT is recommended Lung parenchyma abnormal, with probable alveolar and interstitial edema. Multifocal pneumonia versus pulmonary infarcts. Trace pleural effusions. Carotid Doppler Study 08/25/19 00:00 IMPRESSION: Complete occlusion of the right internal carotid artery with near complete occlusion of the carotid bulb. Greater than 70% stenosis of the left common carotid artery on the basis of mixed plaque. 50 to 69% occlusion of the left internal carotid artery on the basis of mixed plaque. Elevated left vertebral artery velocities. Chest/Abdomen CTA 08/25/19 00:00 IMPRESSION: Poor contrast enhancement of the proximal right common carotid artery. Findings could indicate thrombosis/stenosis. Findings discussed with attending physician, follow-up carotid Doppler will be performed shortly Malignant appearing mediastinal adenopathy Further collapse and consolidation of the bilateral lower lobes compared to 08/23/2019. Small pleural effusions are slightly increased compared to 08/23/2019 Guidance Fluoroscopy 08/25/19 00:00 IMPRESSION: Please see combined report for performance of procedure and radiologic supervision and interpretation. Interventional Vascular Procedure 08/25/19 00:00 IMPRESSION: SUCCESSFUL PLACEMENT OF A 5 FR DUAL LUMEN 27 CM PICC IN THE LEFT BASILIC VEIN. PICC Line Insertion 08/25/19 00:00 IMPRESSION: SUCCESSFUL PLACEMENT OF A 5 FR DUAL LUMEN 27 CM PICC IN THE LEFT BASILIC VEIN. Chest X-Ray 08/31/19 06:00 IMPRESSION: Bilateral pneumonia or asymmetric edema. No significant change. Lymph Node Biopsy Ultrasound 09/03/19 08:00 IMPRESSION: Successful ultrasound-guided biopsy of the heterogeneous left supraclavicular mass. Assessment & Plan - Diagnosis (1) COPD with exacerbation Is this a current diagnosis for this admission?: Yes Plan: Continues to nebulizer treatments (2) Anemia requiring transfusions Is this a current diagnosis for this admission?: Yes Plan: Currently all stable (3) CAD (coronary artery disease) Qualifiers: Coronary Disease-Associated Artery/Lesion type: [place] artery [place] vs. transplanted heart: [place] heart Associated angina: without angina Qualified Code(s): I25.10 - Atherosclerotic heart disease of [place] coronary artery without angina pectoris Is this a current diagnosis for this admission?: Yes (4) Chronic atrial fibrillation Is this a current diagnosis for this admission?: Yes (5) Congestive heart failure (CHF) Qualifiers: Qualified Code(s): I50.32 - Chronic diastolic (congestive) heart failure Is this a current diagnosis for this admission?: Yes (6) HTN (hypertension) Qualifiers: Hypertension type: essential hypertension Qualified Code(s): I10 - Essential (primary) hypertension Is this a current diagnosis for this admission?: Yes (7) Pneumonia Qualifiers: Pneumonia type: due to unspecified organism Is this a current diagnosis for this admission?: Yes Plan: . The chest x-ray is currently not any antibiotic (8) Acute and chronic respiratory failure ([id number]-[id number]-[id number]) Qualifiers: Respiratory failure complication: hypercapnia Qualified Code(s): J96.22 - Acute and chronic respiratory failure with hypercapnia Is this a current diagnosis for this admission?: Yes Plan: The BiPAP (9) Bilateral stenosis of carotid arteries greater than 50% Is this a current diagnosis for this admission?: Yes (10) Lymphadenopathy, mediastinal Is this a current diagnosis for this admission?: Yes (11) Lymphadenopathy, supraclavicular Is this a current diagnosis for this admission?: Yes - Time Time Spent with patient: 15-24 minutes Level of Care: TELE Medications reviewed and adjusted accordingly: Yes Anticipated discharge: Other Within: Other - Plan Summary Plan Summary: We will get the chest x-ray and ABG
[2019-09-05] MEDS: DOCUSATE SODIUM 100 MG CAPSULE PO SCH (10:49)
[2019-09-05] MEDS: MULTIVITAMINS W-IRON TABLET, CHEWABLE PO SCH (10:49)
[2019-09-05 11:58] LABS: ARTERIAL BLOOD BASE EXCESS 10.5 mmol/L; ARTERIAL BLOOD H2CO3 1.92 mmol/L (1.05-1.35); ARTERIAL BLOOD HCO3 37.5 mmol/L (20-24); ARTERIAL BLOOD O2 SATURATION 94.3 % (94-98); ARTERIAL BLOOD PCO2 63.8 mmHg (35-45); ARTERIAL BLOOD PH 7.39 (7.35-7.45); ARTERIAL BLOOD PO2 74.4 mmHg (80-100); ARTERIAL BLOOD TOTAL CO2 39.5 mmol/L (21-25)
[2019-09-05 12:01] LABS: ARTERIAL BLOOD FIO2 32%
--- NOTE | 2019-09-05 12:19 | RADIOLOGY REPORT (SQ) ---
EXAM DESCRIPTION: CHEST SINGLE VIEW COMPLETED DATE/TIME: 09/05/2019 12:08 pm REASON FOR STUDY: COPD,PNA COMPARISON: CT chest 08/25/2019 Chest films 08/31/2019, 08/21/2019, 08/19/2019 EXAM PARAMETERS: NUMBER OF VIEWS: One view. TECHNIQUE: Single frontal radiographic view of the chest acquired. RADIATION DOSE: NA LIMITATIONS: None. FINDINGS: LUNGS AND PLEURA: Multifocal airspace disease worrisome for pneumonia throughout both lung s, similar compared to 08/31/2019. Trace bilateral pleural effusions are present similar compared to 08/31/2019. No pneumothorax. MEDIASTINUM AND HILAR STRUCTURES: Bandage over the left supraclavicular region post biopsy. No gross hilar enlargement HEART AND VASCULAR STRUCTURES: Mild cardiomegaly BONES: No acute findings. HARDWARE: Left-sided PICC line tip in the right atrium OTHER: Old surgical clips right breast. IMPRESSION: No change in bilateral multifocal airspace disease compared to 08/31/2019. Unchanged small bilateral pleural effusions. PICC line in good positioning TECHNICAL DOCUMENTATION: JOB ID: [id number] [employer]- All Rights Reserved Reading location - IP/workstation name: [email or web address]
[2019-09-05] MEDS: CALCIUM CARBONATE 250 MG/VITAMIN D3 125 UNIT TABLET PO SCH (12:57)
[2019-09-05] MEDS: CITALOPRAM HYDROBROMIDE 20 MG TABLET PO SCH (12:58)
[2019-09-05] MEDS: NORMAL SALINE 10 ML SDV (SCHEDULED) IV SCH ×2 (12:58→21:42)
[2019-09-05] MEDS: METOPROLOL TARTRATE 25 MG TABLET PO SCH ×2 (12:58→21:34)
[2019-09-05] MEDS: APIXABAN 5 MG TABLET PO SCH ×2 (12:58→17:48)
[2019-09-05] MEDS: VALSARTAN 40 MG TABLET PO SCH (13:00)
[2019-09-05] MEDS: FLUTICASONE/VILANTEROL 200-25 MCG/DOSE IH SCH (13:00)
[2019-09-05] MEDS: UMECLIDINIUM BROMIDE 62.5 MCG/DOSE IH SCH (13:01)
[2019-09-05] MEDS: POTASSIUM CHLORIDE 20 MEQ PACKET PO SCH (13:25)
[2019-09-05] MEDS: OXYCODONE-ACETAMINOPHEN 5-325 MG TABLET PO PRN ×2 (15:02→21:42)
[2019-09-05] MEDS: OXYCODONE HCL IR 5 MG TABLET PO PRN ×2 (15:03→21:43)
[2019-09-05] MEDS: ATORVASTATIN CALCIUM 40 MG TABLET PO SCH (21:42)
[2019-09-05] MEDS: CEFEPIME 1 GM/D5W RTU 1 GM/50 ML RTUPB IV SCH (21:42)
[2019-09-06] MEDS: ALBUTEROL SULFATE 0.083% NEB 2.5 MG/3 ML AMPUL NEB SCH ×7 (00:02→23:55)
[2019-09-06] MEDS: GABAPENTIN 300 MG CAPSULE PO SCH ×3 (05:13→22:40)
[2019-09-06] MEDS: DILTIAZEM HCL 30 MG TABLET PO SCH ×3 (05:19→17:18)
[2019-09-06] MEDS: PANTOPRAZOLE SODIUM 40 MG TABLET.DR PO SCH (05:19)
[2019-09-06] MEDS: MULTIVITAMINS W-IRON TABLET, CHEWABLE PO SCH (10:26)
[2019-09-06] MEDS: METOPROLOL TARTRATE 25 MG TABLET PO SCH ×2 (10:27→22:39)
[2019-09-06] MEDS: CALCIUM CARBONATE 250 MG/VITAMIN D3 125 UNIT TABLET PO SCH (10:27)
[2019-09-06] MEDS: APIXABAN 5 MG TABLET PO SCH ×2 (10:27→17:18)
[2019-09-06] MEDS: CITALOPRAM HYDROBROMIDE 20 MG TABLET PO SCH (10:28)
[2019-09-06] MEDS: FLUTICASONE/VILANTEROL 200-25 MCG/DOSE IH SCH (10:28)
[2019-09-06] MEDS: VALSARTAN 40 MG TABLET PO SCH (10:28)
[2019-09-06] MEDS: DOCUSATE SODIUM 100 MG CAPSULE PO SCH (10:29)
[2019-09-06] MEDS: UMECLIDINIUM BROMIDE 62.5 MCG/DOSE IH SCH (10:29)
[2019-09-06] MEDS: NORMAL SALINE 10 ML SDV (SCHEDULED) IV SCH ×2 (10:30→22:41)
[2019-09-06] MEDS: CEFEPIME 1 GM/D5W RTU 1 GM/50 ML RTUPB IV SCH ×2 (10:30→22:31)
[2019-09-06] MEDS: OXYCODONE HCL IR 5 MG TABLET PO PRN (10:39)
--- NOTE | 2019-09-06 10:47 | PDOC PROGRESS REPORT ---
Subjective Progress Note for:: 09/06/19 Subjective:: She is feeling much better Patient's ABG is all stable Chest x-ray consistent with some mild airspace disease Patient start the antibiotics Patient is more alert awake oriented today Will wait for the lymph node biopsy report Reason For Visit: ACUTE EXACERBATION OF COPD ANEMIA WITH NEED FOR Physical Exam Vital Signs: Temp Pulse Resp BP Pulse Ox 97.6 F 96 18 137/68 H 93 09/06/19 07:56 09/06/19 08:28 09/06/19 08:28 09/06/19 07:56 09/06/19 08:28 Pulse Oximeter Continuous Start: 08/25/19 05:32 Freq: RTQ4 Status: Active Protocol: Document 09/06/19 08:28 [facility] (Rec: 09/06/19 10:39 [facility] [id number]) Pulse Oximetry Assessment Oxygen Saturation (92-100) 93 Oxygen Flow Rate (L/min) 3 Oxygen Delivery Method Nasal Cannula Fraction of Inspired Oxygen (FIO2) 32 Equipment Usage Equipment in Use Continuous SpO2 Machine # xx Intake & Output 09/05/19 09/06/19 09/07/19 06:59 06:59 06:59 Intake Total 650 832 Balance 650 832 Weight 42.4 kg 41.2 kg General appearance: PRESENT: no acute distress, well-developed, well-nourished Head exam: PRESENT: atraumatic, normocephalic Eye exam: PRESENT: conjunctiva pink, EOMI, PERRLA. ABSENT: scleral icterus Ear exam: PRESENT: normal external ear exam Mouth exam: PRESENT: moist, tongue midline Neck exam: PRESENT: full ROM. ABSENT: carotid bruit, JVD, lymphadenopathy, thyromegaly Respiratory exam: PRESENT: clear to auscultation leslie Cardiovascular exam: PRESENT: RRR. ABSENT: diastolic murmur, rubs, systolic murmur Pulses: PRESENT: normal dorsalis pedis pul, +2 pedal pulses bilateral Vascular exam: PRESENT: normal capillary refill GI/Abdominal exam: PRESENT: normal bowel sounds, soft. ABSENT: distended, guarding, mass, organolmegaly, rebound, tenderness Rectal exam: PRESENT: deferred Neurological exam: PRESENT: alert, awake, oriented to person, oriented to place, oriented to time, oriented to situation, CN II-XII grossly intact. ABSENT: motor sensory deficit Psychiatric exam: PRESENT: appropriate affect, normal mood. ABSENT: homicidal ideation, suicidal ideation Skin exam: PRESENT: dry, intact, warm. ABSENT: cyanosis, rash Results Laboratory Results: 09/05/19 06:00 08/31/19 06:10 09/05/19 11:34 Carbonic Acid 1.92 H HCO3/H2CO3 Ratio 19:1 ABG pH 7.39 ABG pCO2 63.8 H ABG pO2 74.4 L ABG HCO3 37.5 H ABG O2 Saturation 94.3 ABG Base Excess 10.5 FiO2 32% Impressions: Venous Doppler Study 08/21/19 00:00 IMPRESSION: No right jugular lower pole upper extremity venous thrombosis Incompletely occlusive mixed echogenicity clot in the left internal jugular vein No flow is identified in the left arm cephalic vein which is diffusely small 3.8 x 3.6 x 3 cm soft tissue mass in the left supraclavicular region adjacent to the thrombosed IJ vein. This could represent an enlarged lymph node Chest CT 08/23/19 08:00 IMPRESSION: Upper mediastinal adenopathy with mass-effect on venous structures, left internal jugular vein is incompletely occluded with clot on Doppler exam 08/21/2019. Large right peritracheal lymph node in the upper mediastinum may have significant mass effect on the superior vena cava. Follow-up contrast CT is recommended Lung parenchyma abnormal, with probable alveolar and interstitial edema. Multi focal pneumonia versus pulmonary infarcts. Trace pleural effusions. Carotid Doppler Study 08/25/19 00:00 IMPRESSION: Complete occlusion of the right internal carotid artery with near complete occlusion of the carotid bulb. Greater than 70% stenosis of the left common carotid artery on the basis of mixed plaque. 50 to 69% occlusion of the left internal carotid artery on the basis of mixed plaque. Elevated left vertebral artery velocities. Chest/Abdomen CTA 08/25/19 00:00 IMPRESSION: Poor contrast enhancement of the proximal right common carotid artery. Findings could indicate thrombosis/stenosis. Findings discussed with attending physician, follow-up carotid Doppler will be performed shortly Malignant appearing mediastinal adenopathy Further collapse and consolidation of the bilateral lower lobes compared to 08/23/2019. Small pleural effusions are slightly increased compared to 08/23/2019 Guidance Fluoroscopy 08/25/19 00:00 IMPRESSION: Please see combined report for performance of procedure and radiologic supervision and interpretation. Interventional Vascular Procedure 11/18/19 00:00 IMPRESSION: SUCCESSFUL PLACEMENT OF A 5 FR DUAL LUMEN 27 CM PICC IN THE LEFT BASILIC VEIN. PICC Line Insertion 08/25/19 00:00 IMPRESSION: SUCCESSFUL PLACEMENT OF A 5 FR DUAL LUMEN 27 CM PICC IN THE LEFT BASILIC VEIN. Lymph Node Biopsy Ultrasound 09/03/19 08:00 IMPRESSION: Successful ultrasound-guided biopsy of the heterogeneous left supraclavicular mass. Chest X-Ray 09/05/19 00:00 IMPRESSION: No change in bilateral multifocal airspace disease compared to 08/31/2019. Unchanged small bilateral pleural effusions. PICC line in good positioning Assessment & Plan - Diagnosis (1) COPD with exacerbation Is this a current diagnosis for this admission?: Yes Plan: Clear all stable (2) Anemia requiring transfusions Is this a current diagnosis for this admission?: Yes (3) CAD (coronary artery disease) Qualifiers: Coronary Disease-Associated Artery/Lesion type: [place] artery [place] vs. transplanted heart: [place] heart Associated angina: without angina Qualified Code(s): I25.10 - Atherosclerotic heart disease of [place] coronary artery without angina pectoris Is this a current diagnosis for this admission?: Yes (4) Chronic atrial fibrillation Is this a current diagnosis for this admission?: Yes (5) Congestive heart failure (CHF) Qualifiers: Qualified Code(s): I50.32 - Chronic diastolic (congestive) heart failure Is this a current diagnosis for this admission?: Yes (6) HTN (hypertension) Qualifiers: Hypertension type: essential hypertension Qualified Code(s): I10 - Essent ial (primary) hypertension Is this a current diagnosis for this admission?: Yes (7) Pneumonia Qualifiers: Pneumonia type: due to unspecified organism Is this a current diagnosis for this admission?: Yes Plan: Start IV cefepime (8) Acute and chronic respiratory failure (njymm-ou-lhexuuo) Qualifiers: Respiratory failure complication: hypercapnia Qualified Code(s): J96.22 - Acute and chronic respiratory failure with hypercapnia Is this a current diagnosis for this admission?: Yes (9) Bilateral stenosis of carotid arteries greater than 50% Is this a current diagnosis for this admission?: Yes (10) Lymphadenopathy, mediastinal Is this a current diagnosis for this admission?: Yes (11) Lymphadenopathy, supraclavicular Is this a current diagnosis for this admission?: Yes - Time Time Spent with patient: 15-24 minutes Level of Care: TELE Medications reviewed and adjusted accordingly: Yes Anticipated discharge: Other Within: Other - Plan Summary Plan Summary: Start IV antibiotic Continues to BiPAP at night Wait for the biopsy reports Physical therapy evaluations
[2019-09-06] MEDS: OXYCODONE-ACETAMINOPHEN 5-325 MG TABLET PO PRN ×2 (10:51→22:39)
[2019-09-06] MEDS: POTASSIUM CHLORIDE 20 MEQ PACKET PO SCH (11:14)
[2019-09-06] MEDS: LATANOPROST 0.005% OPH SOLN 2.5 ML OU SCH (22:38)
[2019-09-06] MEDS: ATORVASTATIN CALCIUM 40 MG TABLET PO SCH (22:39)
[2019-09-07] MEDS: DILTIAZEM HCL 30 MG TABLET PO SCH ×5 (01:55→23:15)
[2019-09-07] MEDS: ALBUTEROL SULFATE 0.083% NEB 2.5 MG/3 ML AMPUL NEB SCH ×6 (04:00→23:54)
[2019-09-07] MEDS: PANTOPRAZOLE SODIUM 40 MG TABLET.DR PO SCH (05:41)
[2019-09-07] MEDS: GABAPENTIN 300 MG CAPSULE PO SCH ×3 (09:45→21:34)
[2019-09-07] MEDS: FLUTICASONE/VILANTEROL 200-25 MCG/DOSE IH SCH (09:53)
[2019-09-07] MEDS: UMECLIDINIUM BROMIDE 62.5 MCG/DOSE IH SCH (09:53)
[2019-09-07] MEDS: CEFEPIME 1 GM/D5W RTU 1 GM/50 ML RTUPB IV SCH ×2 (09:54→21:31)
[2019-09-07] MEDS: CITALOPRAM HYDROBROMIDE 20 MG TABLET PO SCH (09:55)
[2019-09-07] MEDS: CALCIUM CARBONATE 250 MG/VITAMIN D3 125 UNIT TABLET PO SCH (09:55)
[2019-09-07] MEDS: APIXABAN 5 MG TABLET PO SCH ×2 (09:55→17:22)
[2019-09-07] MEDS: METOPROLOL TARTRATE 25 MG TABLET PO SCH ×2 (09:55→21:34)
[2019-09-07] MEDS: VALSARTAN 40 MG TABLET PO SCH (09:56)
[2019-09-07] MEDS: DOCUSATE SODIUM 100 MG CAPSULE PO SCH (09:56)
[2019-09-07] MEDS: MULTIVITAMINS W-IRON TABLET, CHEWABLE PO SCH (09:57)
[2019-09-07] MEDS: POTASSIUM CHLORIDE 20 MEQ PACKET PO SCH (09:57)
[2019-09-07] MEDS: NORMAL SALINE 10 ML SDV (SCHEDULED) IV SCH ×2 (09:57→21:31)
[2019-09-07] MEDS: OXYCODONE-ACETAMINOPHEN 5-325 MG TABLET PO PRN ×2 (10:01→21:30)
[2019-09-07] MEDS: OXYCODONE HCL IR 5 MG TABLET PO PRN ×2 (10:01→21:30)
--- NOTE | 2019-09-07 11:07 | PDOC PROGRESS REPORT ---
Subjective Progress Note for:: 09/07/19 Subjective:: She is feeling much better Patient's ABG is all stable Chest x-ray consistent with some mild airspace disease Patient start the antibiotics Patient is more alert awake oriented today Will wait for the lymph node biopsy report Reason For Visit: ACUTE EXACERBATION OF COPD ANEMIA WITH NEED FOR Physical Exam Vital Signs: Temp Pulse Resp BP Pulse Ox 98.9 F 89 13 134/44 H 96 09/07/19 08:33 09/07/19 08:33 09/07/19 08:33 09/07/19 08:33 09/07/19 08:33 Pulse Oximeter Continuous Start: 08/25/19 05:32 Freq: RTQ4 Status: Active Protocol: Document 09/07/19 07:54 [facility] (Rec: 09/07/19 07:58 [facility] [id number]) Pulse Oximetry Assessment Oxygen Saturation (92-100) 93 Oxygen Delivery Method Nasal Cannula Fraction of Inspired Oxygen (FIO2) 32 Equipment Usage Equipment in Use Continuous SpO2 Machine # 11 Intake & Output 09/06/19 09/07/19 09/08/19 06:59 06:59 06:59 Intake Total 832 510 50 Balance 832 510 50 Weight 41.2 kg 42 kg General appearance: PRESENT: no acute distress, thin Head exam: PRESENT: atraumatic, normocephalic Eye exam: PRESENT: conjunctiva pink, EOMI, PERRLA. ABSENT: scleral icterus Ear exam: PRESENT: normal external ear exam Mouth exam: PRESENT: moist, tongue midline Neck exam: PRESENT: full ROM. ABSENT: carotid bruit, JVD, lymphadenopathy, thyromegaly Respiratory exam: PRESENT: clear to auscultation leslie Cardiovascular exam: PRESENT: RRR. ABSENT: diastolic murmur, rubs, systolic murmur Pulses: PRESENT: normal dorsalis pedis pul, +2 pedal pulses bilateral Vascular exam: PRESENT: normal capillary refill GI/Abdominal exam: PRESENT: normal bowel sounds, soft. ABSENT: distended, guarding, mass, organolmegaly, rebound, tenderness Rectal exam: PRESENT: deferred Neurological exam: PRESENT: alert, awake, oriented to person, oriented to place, oriented to time, oriented to situation, CN II-XII grossly intact. ABSENT: motor sensory deficit Psychiatric exam: PRESENT: appropriate affect, normal mood. ABSENT: homicidal ideation, suicidal ideation Skin exam: PRESENT: dry, intact, warm. ABSENT: cyanosis, rash Results Laboratory Results: 09/05/19 06:00 08/31/19 06:10 Impressions: Venous Doppler Study 08/21/19 00:00 IMPRESSION: No right jugular lower pole upper extremity venous thrombosis Incompletely occlusive mixed echogenicity clot in the left internal jugular vein No flow is identified in the left arm cephalic vein which is diffusely small 3.8 x 3.6 x 3 cm soft tissue mass in the left supraclavicular region adjacent to the thrombosed IJ vein. This could represent an enlarged lymph node Chest CT 08/23/19 08:00 IMPRESSION: Upper mediastinal adenopathy with mass-effect on venous structures, left internal jugular vein is incompletely occluded with clot on Doppler exam 08/21/2019. Large right peritracheal lymph node in the upper mediastinum may have significant mass effect on the superior vena cava. Follow-up contrast CT is recommended Lung parenchyma abnormal, with probable alveolar and interstitial edema. Multifocal pneumonia versus pulmonary infarcts. Trace pleural effusions. Carotid Doppler Study 08/25/19 00:00 IMPRESSION: Complete occlusion of the right internal carotid artery with near complete occlusion of the carotid bulb. Greater than 70% stenosis of the left common carotid artery on the basis of mixed plaque. 50 to 69% occlusion of the left internal carotid artery on the basis of mixed plaque. Elevated left vertebral artery velocities. Chest/Abdomen CTA 08/25/19 00:00 IMPRESSION: Poor contrast enhancement of the proximal right common carotid artery. Findings could indicate thrombosis/stenosis. Findings discussed with attending physician, follow-up carotid Doppler will be performed shortly Malignant appearing mediastinal adenopathy Further collapse and consolidation of the bilateral lower lobes compared to 08/23/2019. Small pleural effusions are slightly increased compared to 08/23/2019 Guidance Fluoroscopy 08/25/19 00:00 IMPRESSION: Please see combined report for performance of procedure and r adiologic supervision and interpretation. Interventional Vascular Procedure 08/25/19 00:00 IMPRESSION: SUCCESSFUL PLACEMENT OF A 5 FR DUAL LUMEN 27 CM PICC IN THE LEFT B ASILIC VEIN. PICC Line Insertion 08/25/19 00:00 IMPRESSION: SUCCESSFUL PLACEMENT OF A 5 FR DUAL LUMEN 27 CM PICC IN THE LEFT BASILIC VEIN. Lymph Node Biopsy Ultrasound 09/03/19 08:00 IMPRESSION: Successful ultrasound-guided biopsy of the heterogeneous left supraclavicular mass. Chest X-Ray 09/05/19 00:00 IMPRESSION: No change in bilateral multifocal airspace disease compared to 08/31/2019. Unchanged small bilateral pleural effusions. PICC line in good positioning Assessment & Plan - Diagnosis (1) COPD with exacerbation Is this a current diagnosis for this admission?: Yes Plan: Clear all stable (2) Anemia requiring transfusions Is this a current diagnosis for this admission?: Yes Plan: Currently all stable (3) CAD (coronary artery disease) Qualifiers: Coronary Disease-Associated Artery/Lesion type: [place] artery [place] vs. transplanted heart: [place] heart Associated angina: without angina Qualified Code(s): I25.10 - Atherosclerotic heart disease of [place] coronary artery without angina pectoris Is this a current diagnosis for this admission?: Yes (4) Chronic atrial fibrillation Is this a current diagnosis for this admission?: Yes (5) Congestive heart failure (CHF) Qualifiers: Qualified Code(s): I50.32 - Chronic diastolic (congestive) heart failure Is this a current diagnosis for this admission?: Yes (6) HTN (hypertension) Qualifiers: Hypertension type: essential hypertension Qualified Code(s): I10 - Essential (primary) hypertension Is this a current diagnosis for this admission?: Yes (7) Pneumonia Qualifiers: Pneumonia type: due to unspecified organism Is this a current diagnosis for this admission?: Yes Plan: Start IV cefepime (8) Acute and chronic respiratory failure ([id number]) Qualifiers: Respiratory failure complication: hypercapnia Qualified Code(s): J96.22 - Acute and chronic respiratory failure with hypercapnia Is this a current diagnosis for this admission?: Yes Plan: The BiPAP (9) Bilateral stenosis of carotid arteries greater than 50% Is this a current diagnosis for this admission?: Yes (10) Lymphadenopathy, mediastinal Is this a current diagnosis for this admission?: Yes (11) Lymphadenopathy, supraclavicular Is this a current diagnosis for this admission?: Yes - Time Time Spent with patient: 15-24 minutes Level of Care: TELE Medications reviewed and adjusted accordingly: Yes Anticipated discharge: SNF Within: Other - Plan Summary Plan Summary: Continues to current medications
[2019-09-07] MEDS: ATORVASTATIN CALCIUM 40 MG TABLET PO SCH (21:32)
[2019-09-07] MEDS: LATANOPROST 0.005% OPH SOLN 2.5 ML OU SCH (21:34)
[2019-09-07] MEDS: NORMAL SALINE 10 ML SDV (AFTER EACH USE) IV PRN (23:07)
[2019-09-08] MEDS: ALBUTEROL SULFATE 0.083% NEB 2.5 MG/3 ML AMPUL NEB SCH ×5 (04:08→21:16)
[2019-09-08] MEDS: GABAPENTIN 300 MG CAPSULE PO SCH ×3 (06:19→21:56)
[2019-09-08] MEDS: DILTIAZEM HCL 30 MG TABLET PO SCH ×3 (06:26→18:17)
[2019-09-08] MEDS: PANTOPRAZOLE SODIUM 40 MG TABLET.DR PO SCH (06:26)
[2019-09-08] MEDS: NORMAL SALINE 10 ML SDV (AFTER EACH USE) IV PRN (08:01)
[2019-09-08 08:14] LABS: HEMATOCRIT 28.6 % (36.0-47.0); HEMOGLOBIN 9.1 g/dL (12.0-15.5); MEAN CORPUSCULAR HEMOGLOBIN 28.4 pg (27.0-33.4); MEAN CORPUSCULAR HGB CONC 31.7 g/dL (32.0-36.0); MEAN CORPUSCULAR VOLUME 90 fl (80-97); PLATELET COUNT 288 10^3/uL (150-450); RED CELL DISTRIBUTION WIDTH 22.4 % (11.5-14.0); WHITE BLOOD COUNT 12.9 10^3/uL (4.0-10.5)
[2019-09-08] MEDS: NORMAL SALINE 10 ML SDV (SCHEDULED) IV SCH ×2 (10:03→21:59)
[2019-09-08] MEDS: CEFEPIME 1 GM/D5W RTU 1 GM/50 ML RTUPB IV SCH ×2 (11:30→21:56)
[2019-09-08] MEDS: CALCIUM CARBONATE 250 MG/VITAMIN D3 125 UNIT TABLET PO SCH (11:32)
[2019-09-08] MEDS: POTASSIUM CHLORIDE 20 MEQ PACKET PO SCH ×2 (11:32→11:47)
[2019-09-08] MEDS: DOCUSATE SODIUM 100 MG CAPSULE PO SCH (11:33)
[2019-09-08] MEDS: METOPROLOL TARTRATE 25 MG TABLET PO SCH ×2 (11:33→21:55)
[2019-09-08] MEDS: APIXABAN 5 MG TABLET PO SCH ×2 (11:33→18:18)
[2019-09-08] MEDS: MULTIVITAMINS W-IRON TABLET, CHEWABLE PO SCH (11:34)
[2019-09-08] MEDS: CITALOPRAM HYDROBROMIDE 20 MG TABLET PO SCH (11:34)
[2019-09-08] MEDS: VALSARTAN 40 MG TABLET PO SCH (11:39)
[2019-09-08] MEDS: FLUTICASONE/VILANTEROL 200-25 MCG/DOSE IH SCH (12:00)
[2019-09-08] MEDS: UMECLIDINIUM BROMIDE 62.5 MCG/DOSE IH SCH (12:00)
[2019-09-08] MEDS: OXYCODONE HCL IR 5 MG TABLET PO PRN ×2 (12:05→21:53)
[2019-09-08] MEDS: OXYCODONE-ACETAMINOPHEN 5-325 MG TABLET PO PRN ×2 (12:06→21:52)
--- NOTE | 2019-09-08 18:05 | PDOC PROGRESS REPORT ---
Subjective Progress Note for:: 09/08/19 Subjective:: Patient denied any chest pain. She remain on supplemental oxygen via nasal cannula and BiPAP support while sleeping. No fever or chills. No nausea, vomiting, or abdominal pain. Her left supraclavicular lymph node biopsy revealed metastatic adenocarcinoma with primary in hepatobiliary tree or upper GI region. Attempt at EGD was not possible off intubation when GI business development consultant tried to scope patient earlier during this hospitalization. Patient have been refusing her p rescribed gabapentin for several days. Reason For Visit: ACUTE EXACERBATION OF COPD ANEMIA WITH NEED FOR Physical Exam Vital Signs: Temp Pulse Resp BP Pulse Ox 97.8 F 82 18 117/73 96 09/08/19 16:56 09/08/19 16:56 09/08/19 16:56 09/08/19 16:56 09/08/19 16:56 Pulse Oximeter Continuous Start: 08/25/19 05:32 Freq: RTQ4 Status: Active Protocol: Document 09/08/19 15:58 [facility] (Rec: 09/08/19 16:07 [facility] [id number]) Pulse Oximetry Assessment Oxygen Saturation (92-100) 98 Oxygen Flow Rate (L/min) 2.5 Oxygen Delivery Method Nasal Cannula Fraction of Inspired Oxygen (FIO2) 30 Equipment Usage Equipment in Use Continuous SpO2 Machine # 11 Intake & Output 09/07/19 09/08/19 09/09/19 06:59 06:59 06:59 Intake Total 510 1159 Output Total 1 Balance 510 1158 Weight 42 kg 42.8 kg 42.8 kg Physical Exam: General appearance: PRESENT: mild distress - remain on nasal cannula supplemental oxygen and intermittent use of BiPAP while sleeping, thin Head exam: PRESENT: atraumatic, normocephalic Eye exam: PRESENT: conjunctiva pink. ABSENT: pallor, scleral icterus Ear exam: PRESENT: normal external ear exam Mouth exam: PRESENT: moist Teeth exam: PRESENT: poor dentition Neck exam: PRESENT: lymphadenopathy - left supraclavicular fossa region Respiratory exam: PRESENT: decreased breath sounds, rhonchi - minimal expiratory phase Cardiovascular exam: PRESENT: irregular rhythm, +S1, +S2, systolic murmur - LLSB region. ABSENT: diastolic murmur, gallop GI/Abdominal exam: PRESENT: normal bowel sounds, soft. ABSENT: distended, guarding, mass, organomegaly, rebound, tenderness Extremities exam: PRESENT: improved upper extremities pedal edema, PICC line access left arm Neurological exam: PRESENT: alert, awake, oriented to person, oriented to place, oriented to time, oriented to situation, CN II-XII grossly intact. ABSENT: motor sensory deficit Psychiatric exam: PRESENT: appropriate affect, normal mood. ABSENT: homicidal ideation, suicidal ideation Skin exam: PRESENT: dry, warm, dressing over biopsy site satisfactory. Results Laboratory Results: 09/08/19 08:00 08/31/19 06:10 09/08/19 08:00 WBC 12.9 H RBC 3.20 L Hgb 9.1 L Hct 28.6 L MCV 90 MCH 28.4 MCHC 31.7 L RDW 22.4 H Plt Count 288 Impressions: Venous Doppler Study 08/21/19 00:00 IMPRESSION: No right jugular lower pole upper extremity venous thrombosis Incompletely occlusive mixed echogenicity clot in the left internal jugular vein No flow is identified in the left arm cephalic vein which is diffusely small 3.8 x 3.6 x 3 cm soft tissue mass in the left supraclavicular region adjacent to the thrombosed IJ vein. This could represent an enlarged lymph node Chest CT 08/23/19 08:00 IMPRESSION: Upper mediastinal adenopathy with mass-effect on venous structures, left internal jugular vein is incompletely occluded with clot on Doppler exam 08/21/2019. Large right peritracheal lymph node in the upper mediastinum may have significant mass effect on the superior vena cava. Follow-up contrast CT is recommended Lung parenchyma abnormal, with probable alveolar and interstitial edema. Multifocal pneumonia versus pulmonary infarcts. Trace pleural effusions. Carotid Doppler Study 08/25/19 00:00 IMPRESSION: Complete occlusion of the right internal carotid artery with near complete occlusion of the carotid bulb. Greater than 70% stenosis of the left common carotid artery on the basis of mixed plaque. 50 to 69% occlusion of the left internal carotid artery on the basis of mixed plaque. Elevated left vertebral artery velocities. Chest/Abdomen CTA 08/25/19 00:00 IMPRESSION: Poor contrast enhancement of the proximal right common carotid artery. Findings could indicate thrombosis/stenosis. Findings discussed with attending physician, follow-up carotid Doppler will be performed shortly Malignant appearing mediastinal adenopathy Further collapse and consolidation of the bilateral lower lobes compared to 08/23/2019. Small pleural effusions are slightly increased compared to 08/23/2019 Guidance Fluoroscopy 08/25/19 00:00 IMPRESSION: Please see combined report for performance of procedure and radiologic supervision and interpretation. Interventional Vascular Procedure 08/25/19 00:00 IMPRESSION: SUCCESSFUL PLACEMENT OF A 5 FR DUAL LUMEN 27 CM PICC IN THE LEFT BASILIC VEIN. PICC Line Insertion 08/25/19 00:00 IMPRESSION: SUCCESSFUL PLACEMENT OF A 5 FR DUAL LUMEN 27 CM PICC IN THE LEFT BASILIC VEIN. Lymph Node Biopsy Ultrasound 09/03/19 08:00 IMPRESSION: Successful ultrasound-guided biopsy of the heterogeneous left supraclavicular mass. Chest X-Ray 09/05/19 00:00 IMPRESSION: No change in bilateral multifocal airspace disease compared to 08/31/2019. Unchanged small bilateral pleural effusions. PICC line in good positioning Assessment & Plan - Diagnosis (1) Anemia requiring transfusions Is this a current diagnosis for this admission?: Yes (2) COPD with exacerbation Is this a current diagnosis for this admission?: Yes (3) Chronic atrial fibrillation Is this a current diagnosis for this admission?: Yes (4) Chronic diastolic CHF (congestive heart failure) Is this a current diagnosis for this admission?: Yes (5) HLD (hyperlipidemia) Qualifiers: Hyperlipidemia type: unspecified Qualified Code(s): E78.5 - Hyperlipidemia, unspecified Is this a current diagnosis for this admission?: Yes (6) HTN (hypertension) Qualifiers: Hypertension type: essential hypertension Qualified Code(s): I10 - Essential (primary) hypertension Is this a current diagnosis for this admission?: Yes (7) Cephalic vein thrombosis, left Is this a current diagnosis for this admission?: Yes (8) Enlarged lymph node in neck Is this a current diagnosis for this admission?: Yes (9) Internal jugular vein thrombosis Qualifiers: Laterality: left Qualified Code(s): I82.C12 - Acute embolism and thrombosis of left internal jugular vein Is this a current diagnosis for this admission?: Yes (10) Acute and chronic respiratory failure with hypoxia Is this a current diagnosis for this admission?: Yes (11) Bilateral stenosis of carotid arteries greater than 50% Is this a current diagnosis for this admission?: Yes (12) Lymphadenopathy, mediastinal Is this a current diagnosis for this admission?: Yes (13) Lymphadenopathy, supraclavicular Is this a current diagnosis for this admission?: Yes (14) Laryngeal candidiasis Is this a current diagnosis for this admission?: Yes (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 Her prognosis remain very poor. - Time Time Spent with patient: 35 or more minutes Level of Care: TELE Medications reviewed and adjusted accordingly: Yes Anticipated discharge: Other Within: Other - Inpatient Certification Based on my medical assessment, after consideration of the patient's comorbidities, presenting symptoms, or acuity I expect that the services needed warrant INPATIENT care.: Yes I certify that my determination is in accordance with my understanding of Medicare's requirements for reasonable and necessary INPATIENT services [42 CFR 412.3e].: Yes Medical Necessity: Significant Comorbidiites Make Outpatient Treatment Too Risky, Need Close Monitoring Due to Risk of Patient Decompensation, Need For Continuous Telemetry Monitoring, Need for Nebulizer Therapy and Monitoring of Response, Risk of Complication if Not Cared For in Hospital, Risk of Diagnosis W hich Will Require Inpatient Eval/Care/Monitoring Post 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 Continue current medication management. Follow up on medical oncology consult recommendation.
[2019-09-08] MEDS: ATORVASTATIN CALCIUM 40 MG TABLET PO SCH (21:54)
[2019-09-08] MEDS: LATANOPROST 0.005% OPH SOLN 2.5 ML OU SCH (21:58)
[2019-09-09] MEDS: ALBUTEROL SULFATE 0.083% NEB 2.5 MG/3 ML AMPUL NEB SCH ×6 (00:24→21:28)
[2019-09-09] MEDS: DILTIAZEM HCL 30 MG TABLET PO SCH ×5 (02:52→18:43)
[2019-09-09] MEDS: GABAPENTIN 300 MG CAPSULE PO SCH ×3 (06:28→21:11)
[2019-09-09] MEDS: PANTOPRAZOLE SODIUM 40 MG TABLET.DR PO SCH (06:33)
--- NOTE | 2019-09-09 08:41 | PDOC CONSULTATION ---
Consultation Consult Date: 09/09/19 Attending physician:: АНДРЕЙ SUTTON Provider Consulted: FLORENTIN ALCANTAR Consult reason:: Patient with supraclavicular, mediastinal adenopathy, left supraclavicular adenopathy biopsy-proven to be adenocarcinoma History of Present Illness Admission Date/PCP: 08/13/19 21:55 АНДРЕЙ SUTTON Patient complains of: Weakness, shortness of breath, weight loss History of Present Illness: JUNAID VILCHIS is a 74 year old female who presented initially almost about a month ago with increasing dyspnea on exertion, shortness of breath, felt to be a COPD exacerbation, she has nearly of [id number] history of tobacco but quit smoking about 3 years ago, she was treated for COPD exacerbation and pneumonia for the first 4 days of admission and then respiratory status unfortunately worsened she required intubation, she was in the ICU. CT of the chest was done which indicated multiple opacities in the lung concerning for multifocal pneumonia, but also multiple areas of adenopathy, specifically left supraclinoid those up to 4 cm, right supra clavicle 1.3 cm, right paratracheal 3.5 cm with some mass-effect on the SVC, subcarinal adenopathy as well. 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 Of note, the patient gives me history of a right breast cancer in 2004, this was done at the [facility], she did not receive any adjuvant chemotherapy or endocrine therapy but did receive adjuvant radiation in [place]. She does not remember ever following with an oncologist after that. She had a few pounds of weight loss but not overwhelming weight loss prior to admission. But her appetite was poor for the 4 to 6 weeks prior to admission. Past Medical History Cardiac Medical History: Reports: Atrial Fibrillation, Congestive Heart Failure, Coronary Artery Disease, Hyperlipidema, Hypertension Pulmonary Medical History: Reports: Bronchitis, Chronic Obstructive Pulmonary Disease (COPD) - stage 3, Pneumonia Malignancy Medical History: Reports: Breast Cancer - right, over 10 years ago Musculoskeltal Medical History: Reports: Arthritis Psychiatric Medical History: Reports: Depression Past Surgical History Past Surgical History: Reports: Mastectomy - Right, 2004, Other - She remembers having colonoscopy at some point in time Social History Information Source: Patient Smoking Status: Former Smoker Frequency of Alcohol Use: None Hx Recreational Drug Use: No Drugs: None Hx Prescription Drug Abuse: No - Advance Directive Resuscitation Status: Full Code Family History Family History: COPD, Hypertension Parental Family History Reviewed: Yes Children Family History Reviewed: Yes Sibling(s) Family History Reviewed.: Yes Medication/Allergy Home Medications: Acetazolamide [Diamox Sequel 500 mg] 500 mg PO DAILY 07/01/18 Albuterol Sulfate [Proair HFA Inhalation Aerosol 8.5 gm MDI] 2 puff IH Q4HP PRN 07/01/18 Budesonide/Formoterol Fumarate [Symbicort HFA 160-4.5 mcg Inhaler 6 gm] 2 puff IH Q12 07/01/18 Calcium Carbonate/Vitamin D3 [Oyster Shell 500-Vit D3 200 Tb] 1 tab PO DAILY 07/01/18 Citalopram Hydrobromide [Celexa 20 mg Tablet] 20 mg PO DAILY 07/01/18 Diltiazem HCl [Diltiazem 24Hr Cd] 120 mg PO DAILY 07/01/18 Gabapentin [Neurontin 300 mg Capsule] 300 mg PO Q8 07/01/18 Melatonin [Melatonin 3 mg Tablet] 3 mg PO QHS 07/01/18 Metoprolol Succinate [Toprol Xl] 25 mg PO DAILY 07/01/18 Multivitamin [Multiple Vitamins] 1 tab PO DAILY 07/01/18 Pantoprazole Sodium [Protonix] 40 mg PO DAILY 07/01/18 Tiotropium [place] [Spiriva Handihaler 18 mcg/dose (30 Dose)] 1 cap IH DAILY 07/01/18 Valsartan [Diovan 40 mg Tablet] 40 mg PO DAILY 07/01/18 Furosemide [Lasix 20 mg Tablet] 20 mg PO DAILY #30 tablet 11/14/18 Atorvastatin Calcium [Lipitor 40 mg Tablet] 40 mg PO QHS 11/20/18 Oxycodone HCl/Acetaminophen [Oxycodon-Acetaminophen 7.5-325] 1 tab PO Q8HP PRN 11/20/18 Latanoprost [Xalatan 0.005% Oph Soln 2.5 ml] 1 drop OU QHS 08/14/19 Venlafaxine HCl [Effexor 75 mg Tablet] 75 mg PO DAILY 08/14/19 Warfarin Sodium [Coumadin 3 mg Tablet] 3 mg PO QHS 08/14/19 Allergies/Adverse Reactions: bee pollen [Bee Pollen] Allergy (Unknown, Verified 01/15/18 08:05) moxifloxacin [From Avelox] Allergy (Verified 08/13/19 23:24) propoxyphene [From Darvocet-N] Allergy (Verified 01/15/18 08:05) venom-wasp [Wasp Venom] Allergy (Verified 01/15/18 08:05) Review of Systems Constitutional: ABSENT: chills, fever(s), headache(s), weight gain, weight loss Eyes: ABSENT: visual disturbances Ears: ABSENT: hearing changes Cardiovascular: ABSENT: chest pain, dyspnea on exertion, edema, orthropnea, palpitations Respiratory: ABSENT: cough, hemoptysis Gastrointestinal: ABSENT: abdominal pain, constipation, diarrhea, hematemesis, hematochezia, nausea, vomiting Genitourinary: ABSENT: dysuria, hematuria Musculoskeletal: ABSENT: joint swelling Integumentary: ABSENT: rash, wounds Neurological: ABSENT: abnormal gait, abnormal speech, confusion, dizziness, foc al weakness, syncope Psychiatric: ABSENT: anxiety, depression, homidical ideation, suicidal ideation Endocrine: ABSENT: cold intolerance, heat intolerance, polydipsia, polyuria Hematologic/Lymphatic: ABSENT: easy bleeding, easy bruising Physical Exam Vital Signs: Temp Pulse Resp BP Pulse Ox 98.3 F 86 16 137/84 H 97 09/09/19 00:00 09/09/19 07:32 09/09/19 07:32 09/09/19 06:34 09/09/19 07:32 Pulse Oximeter Continuous Start: 08/25/19 05:32 Freq: RTQ4 Status: Active Protocol: Document 09/09/19 07:32 JDR (Rec: 09/09/19 07:47 J [id number]) Pulse Oximetry Assessment Oxygen Saturation (92-100) 97 Oxygen Flow Rate (L/min) 3 Oxygen Delivery Method Nasal Cannula Equipment Usage Equipment in Use Continuous SpO2 Machine # 11 Intake & Output 09/08/19 09/09/19 09/10/19 06:59 06:59 06:59 Intake Total 1159 659 Output Total 1 Balance 1158 659 Weight 42.8 kg 42.3 kg General appearance: PRESENT: no acute distress, well-developed, well-nourished Head exam: PRESENT: atraumatic, normocephalic Eye exam: PRESENT: conjunctiva pink, EOMI, PERRLA. ABSENT: scleral icterus Ear exam: PRESENT: normal external ear exam Mouth exam: PRESENT: moist, tongue midline Neck exam: ABSENT: carotid bruit, JVD, lymphadenopathy, thyromegaly Respiratory exam: PRESENT: clear to auscultation leslie. ABSENT: rales, rhonchi, wheezes Cardiovascular exam: PRESENT: RRR. ABSENT: diastolic murmur, rubs, systolic murmur Pulses: PRESENT: normal dorsalis pedis pul Vascular exam: PRESENT: normal capillary refill GI/Abdominal exam: PRESENT: normal bowel sounds, soft. ABSENT: distended, guarding, mass, organolmegaly, rebound, tenderness Rectal exam: PRESENT: deferred Extremities exam: PRESENT: full ROM. ABSENT: calf tenderness, clubbing, pedal edema Neurological exam: PRESENT: alert, awake, oriented to person, oriented to place, oriented to time, oriented to situation, CN II-XII grossly intact. ABSENT: motor sensory deficit Psychiatric exam: PRESENT: appropriate affect, normal mood. ABSENT: homicidal ideation, suicidal ideation Skin exam: PRESENT: dry, intact, warm. ABSENT: cyanosis, rash Results Laboratory Results: 09/08/19 08:00 08/31/19 06:10 Impressions: Venous Doppler Study 08/21/19 00:00 IMPRESSION: No right jugular lower pole upper extremity venous thrombosis Incompletely occlusive mixed echogenicity clot in the left internal jugular vein No flow is identified in the left arm cephalic vein which is diffusely small 3.8 x 3.6 x 3 cm soft tissue mass in the left supraclavicular region adjacent to the thrombosed IJ vein. This could represent an enlarged lymph node Chest CT 08/23/19 08:00 IMPRESSION: Upper mediastinal adenopathy with mass-effect on venous structures, left internal jugular vein is incompletely occluded with clot on Doppler exam 08/21/2019. Large right peritracheal lymph node in the upper mediastinum may have significant mass effect on the superior vena cava. Follow-up contrast CT is recommended Lung parenchyma abnormal, with probable alveolar and interstitial edema. Multifocal pneumonia versus pulmonary infarcts. Trace pleural effusions. Carotid Doppler Study 08/25/19 00:00 IMPRESSION: Complete occlusion of the right internal carotid artery with near complete occlusion of the carotid bulb. Greater than 70% stenosis of the left common carotid artery on the basis of mixed plaque. 50 to 69% occlusion of the left internal carotid artery on the basis of mixed plaque. Elevated left vertebral artery velocities. Chest/Abdomen CTA 08/25/19 00:00 IMPRESSION: Poor contrast enhancement of the proximal right common carotid artery. Findings could indicate thrombosis/stenosis. Findings discussed with attending physician, follow-up carotid Doppler will be performed shortly Malignant appearing mediastinal adenopathy Further collapse and consolidation of the bilateral lower lobes compared to 08/23/2019. Small pleural effusions are slightly increased compared to 08/23/2019 Guidance Fluoroscopy 08/25/19 00:00 IMPRESSION: Please see combined report for performance of procedure and radiologic supervision and interpretation. Interventional Vascular Procedure 08/25/19 00:00 IMPRESSION: SUCCESSFUL PLACEMENT OF A 5 FR DUAL LUMEN 27 CM PICC IN THE LEFT BASILIC VEIN. PICC Line Insertion 08/25/19 00:00 IMPRESSION: SUCCESSFUL PLACEMENT OF A 5 FR DUAL LUMEN 27 CM PICC IN THE LEFT BASILIC VEIN. Lymph Node Biopsy Ultrasound 09/03/19 08:00 IMPRESSION: Successful ultrasound-guided biopsy of the heterogeneous left supraclavicular mass. Chest X-Ray 09/05/19 00:00 IMPRESSION: No change in bilateral multifocal airspace disease compared to 08/31/2019. Unchanged small bilateral pleural effusions. PICC line in good positioning Status: Image reviewed by me Assessment & Plan - Diagnosis (1) Metastatic adenocarcinoma of unknown origin Is this a current diagnosis for this admission?: Yes Plan: At present adenocarcinoma of unknown primary, I will order CT of the abdomen pelvis with contrast oral and IV, I have asked gastroenterology on-call to do an EGD on her, we will repeat CMP which was previously normal, also do tumor ma rkers of CA-19-9, CA-27-29, CA-15-3and CEA. [place] The patient asked me to speak to her Sister Mani so I will do that as well. - Time Time Spent: Greater than 70 Minutes - Inpatient Certification Based on my medical assessment, after consideration of the patient's comorbidities, presenting symptoms, or acuity I expect that the services needed warrant INPATIENT care.: Yes I certify that my determination is in accordance with my understanding of Medicare's requirements for reasonable and necessary INPATIENT services [42 CFR 412.3e].: Yes Medical Necessity: Need for Surgery, Risk of Complication if Not Cared For in Hospital
[2019-09-09] MEDS: VALSARTAN 40 MG TABLET PO SCH (09:35)
[2019-09-09] MEDS: FLUTICASONE/VILANTEROL 200-25 MCG/DOSE IH SCH (09:35)
[2019-09-09] MEDS: MULTIVITAMINS W-IRON TABLET, CHEWABLE PO SCH (09:35)
[2019-09-09] MEDS: UMECLIDINIUM BROMIDE 62.5 MCG/DOSE IH SCH (09:35)
[2019-09-09] MEDS: DOCUSATE SODIUM 100 MG CAPSULE PO SCH (09:35)
[2019-09-09] MEDS: METOPROLOL TARTRATE 25 MG TABLET PO SCH ×2 (09:35→21:10)
[2019-09-09] MEDS: CITALOPRAM HYDROBROMIDE 20 MG TABLET PO SCH (09:35)
[2019-09-09] MEDS: APIXABAN 5 MG TABLET PO SCH ×2 (09:35→18:43)
[2019-09-09] MEDS: CEFEPIME 1 GM/D5W RTU 1 GM/50 ML RTUPB IV SCH ×2 (09:40→21:09)
[2019-09-09] MEDS: NORMAL SALINE 10 ML SDV (SCHEDULED) IV SCH ×2 (09:41→21:11)
[2019-09-09] MEDS: CALCIUM CARBONATE 250 MG/VITAMIN D3 125 UNIT TABLET PO SCH (09:41)
[2019-09-09] MEDS: POTASSIUM CHLORIDE 20 MEQ PACKET PO SCH (09:41)
--- NOTE | 2019-09-09 10:38 | PDOC CONSULTATION ---
Consultation Consult Date: 08/26/19 Attending physician:: THERESE MCKEON Provider Consulted: MAKENZIE GOODSON Consult reason:: Dyspnea History of Present Illness Admission Date/PCP: 08/13/19 21:55 АНДРЕЙ OSUNKOYA History of Present Illness: JUNAID VILCHIS is a 74 year old female, resented to PCP fevers chills increasing dyspnea patient is on home oxygen she denies any hemoptysis or PPD was negative dates unknown is no history of chronic lung disease as a child or adolescent she admits to exposure to massive amounts of passive smoke as a child as well as an adult she herself smoked 2 packs a day for the better part of 45 years. 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 No pets no recent travel no angina-like chest pain sleeps on 2 pillows no PND no nocturnal cough intermittent episodes of edema. She denies snoring but admits to restless sleep nocturia 3-4 times per night unrestful sleep and daytime somnolence. Past Medical History Cardiac Medical History: Reports: Atrial Fibrillation, Congestive Heart Failure, Coronary Artery Disease, Hyperlipidema, Hypertension Pulmonary Medical History: Reports: Bronchitis, Chronic Obstructive Pulmonary Disease (COPD) - stage 3, Pneumonia Malignancy Medical History: Reports: Breast Cancer - right, over 10 years ago Musculoskeltal Medical History: Reports: Arthritis Psychiatric Medical History: Reports: Depression Past Surgical History Past Surgical History: Reports: Mastectomy - Right, 2004, Other - She remembers having colonoscopy at some point in time Social History Information Source: Patient, [facility] Records Smoking Status: Former Smoker Cigarettes Packs Per Day: 2 Number of Years Smokin Passive smoke exposure as: Both Frequency of Alcohol Use: None Hx Recreational Drug Use: No Drugs: None Hx Prescription Drug Abuse: No Do you have pets?: No Have you had any respiratory illnesses as a child?: No Have you been exposed to any sick contacts recently?: No Have you had any recent respiratory illnesses?: Yes Have you travelled outside of [place] in the past 12 months?: No - Advance Directive Resuscitation Status: Full Code Family History Family History: COPD, Hypertension Parental Family History Reviewed: Yes Children Family History Reviewed: Yes Sibling(s) Family History Reviewed.: Yes Medication/Allergy Home Medications: Acetazolamide [Diamox Sequel 500 mg] 500 mg PO DAILY 07/01/18 Albuterol Sulfate [Proair HFA Inhalation Aerosol 8.5 gm MDI] 2 puff IH Q4HP PRN 07/01/18 Budesonide/Formoterol Fumarate [Symbicort HFA 160-4.5 mcg Inhaler 6 gm] 2 puff IH Q12 07/01/18 Calcium Carbonate/Vitamin D3 [Oyster Shell 500-Vit D3 200 Tb] 1 tab PO DAILY 07/01/18 Citalopram Hydrobromide [Celexa 20 mg Tablet] 20 mg PO DAILY 07/01/18 Diltiazem HCl [Diltiazem 24Hr Cd] 120 mg PO DAILY 07/01/18 Gabapentin [Neurontin 300 mg Capsule] 300 mg PO Q8 07/01/18 Melatonin [Melatonin 3 mg Tablet] 3 mg PO QHS 07/01/18 Metoprolol Succinate [Toprol Xl] 25 mg PO DAILY 07/01/18 Multivitamin [Multiple Vitamins] 1 tab PO DAILY 07/01/18 Pantoprazole Sodium [Protonix] 40 mg PO DAILY 07/01/18 Tiotropium [place] [Spiriva Handihaler 18 mcg/dose (30 Dose)] 1 cap IH DAILY 07/01/18 Valsartan [Diovan 40 mg Tablet] 40 mg PO DAILY 07/01/18 Furosemide [Lasix 20 mg Tablet] 20 mg PO DAILY #30 tablet 11/14/18 Atorvastatin Calcium [Lipitor 40 mg Tablet] 40 mg PO QHS 11/20/18 Oxycodone HCl/Acetaminophen [Oxycodon-Acetaminophen 7.5-325] 1 tab PO Q8HP PRN 11/20/18 Latanoprost [Xalatan 0.005% Oph Soln 2.5 ml] 1 drop OU QHS 08/14/19 Venlafaxine HCl [Effexor 75 mg Tablet] 75 mg PO DAILY 08/14/19 Warfarin Sodium [Coumadin 3 mg Tablet] 3 mg PO QHS 08/14/19 Allergies/Adverse Reactions: bee pollen [Bee Pollen] Allergy (Unknown, Verified 01/15/18 08:05) moxifloxacin [From Avelox] Allergy (Verified 08/13/19 23:24) propoxyphene [From Darvocet-N] Allergy (Verified 01/15/18 08:05) venom-wasp [Wasp Venom] Allergy (Verified 01/15/18 08:05) Physical Exam Vital Signs: Temp Pulse Resp BP Pulse Ox 98.3 F 93 13 91/45 L 99 09/09/19 08:14 09/09/19 08:14 09/09/19 08:14 09/09/19 08:14 09/09/19 08:14 Pulse Oximeter Continuous Start: 08/25/19 05:32 Freq: RTQ4 Status: Active Protocol: Document 09/09/19 07:32 JDR (Rec: 09/09/19 07:47 JDR [id number]) Pulse Oximetry Assessment Oxygen Saturation (92-100) 97 Oxygen Flow Rate (L/min) 3 Oxygen Delivery Method Nasal Cannula Equipment Usage Equipment in Use Continuous SpO2 Machine # 11 Intake & Output 09/08/19 09/09/19 09/10/19 06:59 06:59 06:59 Intake Total 1159 659 Output Total 1 Balance 1158 659 Weight 42.8 kg 42.3 kg General appearance: PRESENT: no acute distress, cooperative, disheveled, thin, well-developed, well-nourished Head exam: PRESENT: atraumatic, normocephalic Eye exam: PRESENT: conjunctiva pale, EOMI. ABSENT: nystagmus, periorbital swelling, scleral icterus Mouth exam: PRESENT: dry mucosa, neck supple, tongue midline Teeth exam: PRESENT: poor dentation Throat exam: ABSENT: post pharyngeal erythema, tonsillar erythema, tonsillar exudate, tonsillogmegaly, other Neck exam: PRESENT: tenderness - L supraclavicular Respiratory exam: PRESENT: decreased breath sounds, prolonged expiratory phas, rhonchi, tachypnea, unlabored. ABSENT: retraction, stridor Cardiovascular exam: PRESENT: RRR, +S1, +S2, tachycardia Pulses: PRESENT: normal radial pulses GI/Abdominal exam: PRESENT: soft. ABSENT: distended, guarding, mass, rebound, rigid, tenderness Extremities exam: PRESENT: +1 edema. ABSENT: calf tenderness, clubbing, full ROM, tenderness Neurological exam: PRESENT: alert, awake Psychiatric exam: PRESENT: appropriate affect Skin exam: PRESENT: dry, warm Results Laboratory Results: 09/08/19 08:00 08/31/19 06:10 Impressions: Venous Doppler Study 08/21/19 00:00 IMPRESSION: No right jugular lower pole upper extremity venous thrombosis Incompletely occlusive mixed echogenicity clot in the left internal jugular vein No flow is identified in the left arm cephalic vein which is diffusely small 3.8 x 3.6 x 3 cm soft tissue mass in the left supraclavicular region adjacent to the thrombosed IJ vein. This could represent an enlarged lymph node Chest CT 08/23/19 08:00 IMPRESSION: Upper mediastinal adenopathy with mass-effect on venous structures, left internal jugular vein is incompletely occluded with clot on Doppler exam 08/21/2019. Large right peritracheal lymph node in the upper mediastinum may have significant mass effect on the superior vena cava. Follow-up contrast CT is recommended Lung parenchyma abnormal, with probable alveolar and interstitial edema. Multifocal pneumonia versus pulmonary infarcts. Trace pleural effusions. Carotid Doppler Study 08/25/19 00:00 IMPRESSION: Complete occlusion of the right internal carotid artery with near complete occlusion of the carotid bulb. Greater than 70% stenosis of the left common carotid artery on the basis of mixed plaque. 50 to 69% occlusion of the left internal carotid artery on the basis of mixed plaque. Elevated left vertebral artery velocities. Chest/Abdomen CTA 08/25/19 00:00 IMPRESSION: Poor contrast enhancement of the proximal right common carotid artery. Findings could indicate thrombosis/stenosis. Findings discussed with attending physician, follow-up carotid Doppler will be performed shortly Malignant appearing mediastinal adenopathy Further collapse and consolidation of the bilateral lower lobes compared to 08/23/2019. Small pleural effusions are slightly increased compared to 08/23/2019 Guidance Fluoroscopy 08/25/19 00:00 IMPRESSION: Please see combined report for performance of procedure and radiologic supervision and interpretation. Interventional Vascular Procedure 08/25/19 00:00 IMPRESSION: SUCCESSFUL PLACEMENT OF A 5 FR DUAL LUMEN 27 CM PICC IN THE LEFT BASILIC VEIN. PICC Line Insertion 08/25/19 00:00 IMPRESSION: SUCCESSFUL PLACEMENT OF A 5 FR DUAL LUMEN 27 CM PICC IN THE LEFT BASILIC VEIN. Lymph Node Biopsy Ultrasound 09/03/19 08:00 IMPRESSION: Successful ultrasound-guided biopsy of the heterogeneous left supraclavicular mass. Chest X-Ray 09/05/19 00:00 IMPRESSION: No change in bilateral multifocal airspace disease compared to 08/31/2019. Unchanged small bilateral pleural effusions. PICC line in good positioning Assessment & Plan - Diagnosis (1) Enlarged lymph node in neck Is this a current diagnosis for this admission?: Yes Plan: node should be biopsied under ultrasound guidance (2) Acute and chronic respiratory failure with hypoxia Is this a current diagnosis for this admission?: Yes Plan: Supplemental oxygen balance between the adequate SaO2 and hypercapnia maintaining a good pH (3) COPD (chronic obstructive pulmonary disease) Qualifiers: COPD type: unspecified COPD Qualified Code(s): J44.9 - Chronic obstructive pulmonary disease, unspecified Is this a current diagnosis for this admission?: Yes Plan: Generic Name Dose Route Start Last Admin Trade Name Freq PRN Reason Stop Dose Admin Umeclidinium [place] 1 inh 08/14/19 10:00 09/09/19 09:35 Incruse 62.5 Mcg Ellipta 7 Dose/Dpi 09/13/19 09:59 Not Given DAILY [facility] Albuterol 2.5 mg 08/20/19 20:00 09/09/19 07:31 Ventolin 0.083% Neb 2.5 Mg/3 Ml Ampul NEB 09/19/19 19:59 2.5 mg RTQ4 [facility] Fluticasone/Vilanterol 1 inh 08/14/19 10:00 09/09/19 09:35 Breo 200-25 Mcg Ellipta 14 Dose/Dpi 09/13/19 09:59 Not Given DAILY [facility] Bedside spirometry without bronchodilator - Time Time Spent: 30 to 50 Minutes
--- NOTE | 2019-09-09 10:42 | PDOC PROGRESS REPORT ---
Subjective Progress Note for:: 09/03/19 Subjective:: Lethargic but overall feeling better Reason For Visit: ACUTE EXACERBATION OF COPD ANEMIA WITH NEED FOR Physical Exam Vital Signs: Temp Pulse Resp BP Pulse Ox 98.3 F 93 13 91/45 L 99 09/09/19 08:14 09/09/19 08:14 09/09/19 08:14 09/09/19 08:14 09/09/19 08:14 Pulse Oximeter Continuous Start: 08/25/19 05:32 Freq: RTQ4 Status: Active Protocol: Document 09/09/19 07:32 JDR (Rec: 09/09/19 07:47 JDR [id number]) Pulse Oximetry Assessment Oxygen Saturation (92-100) 97 Oxygen Flow Rate (L/min) 3 Oxygen Delivery Method Nasal Cannula Equipment Usage Equipment in Use Continuous SpO2 Machine # 11 Intake & Output 09/08/19 09/09/19 09/10/19 06:59 06:59 06:59 Intake Total 1159 659 Output Total 1 Balance 1158 659 Weight 42.8 kg 42.3 kg General appearance: PRESENT: no acute distress, cooperative, disheveled, thin, well-developed, well-nourished Head exam: PRESENT: atraumatic, normocephalic Eye exam: PRESENT: conjunctiva pale, EOMI. ABSENT: nystagmus, periorbital swelling Mouth exam: PRESENT: dry mucosa, neck supple, tongue midline Neck exam: PRESENT: lymphadenopathy - post biopsy of supraclavicular. ABSENT: carotid bruit, full ROM, JVD, meningismus, tenderness, thyromegaly, tracheal deviation, tracheostomy, other Respiratory exam: PRESENT: decreased breath sounds, prolonged expiratory phas, rhonchi, unlabored. ABSENT: stridor, symmetrical, tachypnea, wheezes Cardiovascular exam: PRESENT: RRR, +S1, +S2 Pulses: PRESENT: normal radial pulses GI/Abdominal exam: PRESENT: soft. ABSENT: distended, guarding, mass, rigid, tenderness Extremities exam: ABSENT: calf tenderness, clubbing, joint swelling, tenderness Musculoskeletal exam: ABSENT: deformity, dislocation Neurological exam: PRESENT: altered, awake Psychiatric exam: PRESENT: appropriate affect Skin exam: PRESENT: dry, warm Results Laboratory Results: 09/08/19 08:00 08/31/19 06:10 Impressions: Venous Doppler Study 08/21/19 00:00 IMPRESSION: No right jugular lower pole upper extremity venous thrombosis Incompletely occlusive mixed echogenicity clot in the left internal jugular vein No flow is identified in the left arm cephalic vein which is diffusely small 3.8 x 3.6 x 3 cm soft tissue mass in the left supraclavicular region adjacent to the thrombosed IJ vein. This could represent an enlarged lymph node Chest CT 08/23/19 08:00 IMPRESSION: Upper mediastinal adenopathy with mass-effect on venous structures, left internal jugular vein is incompletely occluded with clot on Doppler exam 08/21/2019. Large right peritracheal lymph node in the upper mediastinum may have significant mass effect on the superior vena cava. Follow-up contrast CT is recommended Lung parenchyma abnormal, with probable alveolar and interstitial edema. Multifocal pneumonia versus pulmonary infarcts. Trace pleural effusions. Carotid Doppler Study 08/25/19 00:00 IMPRESSION: Complete occlusion of the right internal carotid artery with near complete occlusion of the carotid bulb. Greater than 70% stenosis of the left common carotid artery on the basis of mixed plaque. 50 to 69% occlusion of the left internal carotid artery on the basis of mixed plaque. Elevated left vertebral artery velocities. Chest/Abdomen CTA 08/25/19 00:00 IMPRESSION: Poor contrast enhancement of the proximal right common carotid artery. Findings could indicate thrombosis/stenosis. Findings discussed with attending physician, follow-up carotid Doppler will be performed shortly Malignant appearing mediastinal adenopathy Further collapse and consolidation of the bilateral lower lobes compared to 08/23/2019. Small pleural effusions are slightly increased compared to 08/23/2019 Guidance Fluoroscopy 08/25/19 00:00 IMPRESSION: Please see combined report for performance of procedure and radiologic supervision and interpretation. Interventional Vascular Procedure 08/25/19 00:00 IMPRESSION: SUCCESSFUL PLACEMENT OF A 5 FR DUAL LUMEN 27 CM PICC IN THE LEFT BASILIC VEIN. PICC Line Insertion 08/25/19 00:00 IMPRESSION: SUCCESSFUL PLACEMENT OF A 5 FR DUAL LUMEN 27 CM PICC IN THE LEFT BASILIC VEIN. Lymph Node Biopsy Ultrasound 09/03/19 08:00 IMPRESSION: Successful ultrasound-guided biopsy of the heterogeneous left supraclavicular mass. Chest X-Ray 09/05/19 00:00 IMPRESSION: No change in bilateral multifocal airspace disease compared to 08/31/2019. Unchanged small bilateral pleural effusions. PICC line in good positioning Assessment & Plan - Diagnosis (1) Enlarged lymph node in neck Is this a current diagnosis for this admission?: Yes Plan: Left supraclavicular node has been biopsied under ultrasound guidance (2) Acute and chronic respiratory failure with hypoxia Is this a current diagnosis for this admission?: Yes Plan: Supplemental oxygen balance between the adequate SaO2 and hypercapnia maintaining a good pH (3) COPD (chronic obstructive pulmonary disease) Qualifiers: COPD type: unspecified COPD Qualified Code(s): J44.9 - Chronic obstructive pulmonary disease, unspecified Is this a current diagnosis for this admission?: Yes Plan: Generic Name Dose Route Start Last Admin Trade Name Freq PRN Reason Stop Dose Admin Umeclidinium [place] 1 inh 08/14/19 10:00 09/09/19 09:35 Incruse 62.5 Mcg Ellipta 7 Dose/Dpi 09/13/19 09:59 Not Given DAILY FAMILIA Albuterol 2.5 mg 08/20/19 20:00 09/09/19 07:31 Ventolin 0.083% Neb 2.5 Mg/3 Ml Ampul NEB 09/19/19 19:59 2.5 mg RTQ4 FAMILIA Fluticasone/Vilanterol 1 inh 08/14/19 10:00 09/09/19 09:35 Breo 200-25 Mcg Ellipta 14 Dose/Dpi 09/13/19 09:59 Not Given DAILY FAMILIA Bedside spirometry without bronchodilator - Time Time Spent with patient: 25-34 minutes Level of Care: CU
[2019-09-09] MEDS ORDERED: ONDANSETRON HCL INJ/PF 4 MG/2 ML SDV ONE (12:00)
[2019-09-09] MEDS ORDERED: DIPHENHYDRAMINE HCL 50 MG/ML VIAL ONE (12:00)
[2019-09-09] MEDS ORDERED: FENTANYL CITRATE INJ/PF 100 MCG/2 ML AMPUL ONE (12:00)
[2019-09-09] MEDS ORDERED: NALOXONE HCL INJ/PF 0.4 MG/1 ML SDV ONE (12:01)
[2019-09-09] MEDS ORDERED: MIDAZOLAM 2 MG/2 ML INJ ONE (12:01)
[2019-09-09] MEDS ORDERED: GLUCAGON,HUMAN RECOMB 1 MG INJ ONE (12:01)
[2019-09-09] MEDS ORDERED: EPINEPHRINE INJ 1 MG/10 ML DISP.SYRIN ONE (12:01)
[2019-09-09] MEDS ORDERED: FLUMAZENIL INJ 0.5 MG/5 ML VIAL ONE (12:01)
[2019-09-09 12:37] LABS: ALBUMIN 2.9 g/dL (3.5-5.0); ALKALINE PHOSPHATASE 70 U/L (38-126); ASPARTATE AMINO TRANSFERASE 22 U/L (14-36); BILIRUBIN,DIRECT 0.3 mg/dL (0.0-0.4); BILIRUBIN,TOTAL 0.5 mg/dL (0.2-1.3); BLOOD UREA NITROGEN 14 mg/dL (7-20); CALCIUM 9.1 mg/dL (8.4-10.2); CHLORIDE 93 mmol/L (98-107); GLUCOSE 118 mg/dL (75-110); TOTAL PROTEIN 6.2 g/dL (6.3-8.2)
[2019-09-09 12:54] LABS: ANION GAP 7 (5-19); CARBON DIOXIDE 39 mmol/L (22-30)
[2019-09-09 13:05] LABS: CARCINOEMBRYONIC ANTIGEN 27.2 ng/mL (<3.0)
--- NOTE | 2019-09-09 13:17 | Operative Report ---
Operative Report DATE OF SURGERY: 09/09/19 Operative Report: The risks benefits and alternatives of the procedure explained to the patient in detail and informed consent is obtained.A GIF Olympus video scope was inserted into the patient's mouth and hypopharynx, the esophagus is identified intubated and insufflated, the scope was then advanced through the esophagus stomach and duodenum ,retroflexion maneuver is done, the esophagus stomach and first and second portions of the duodenum examined. PREOPERATIVE DIAGNOSIS: Enlarged supraclavicular lymph node rule out GI source of malignancy POSTOPERATIVE DIAGNOSIS: Mild gastritis status post biopsy. Spoke with Dr. Romaine hidalgo and Dr Morataya OPERATION: EGD with biopsy SURGEON: SERENITY IZAGUIRRE ANESTHESIA: Moderate Sedation - 2 mg of Versed, conscious sedation monitoring time 30 minutes. TISSUE REMOVED OR ALTERED: Superficial gastric specimens obtained rule out Helicobacter pylori COMPLICATIONS: None. ESTIMATED BLOOD LOSS: None. INTRAOPERATIVE FINDINGS: As noted above. PROCEDURE: Patient tolerated the procedure well. No immediate postprocedure complications are noted. Patient patient is sent back to her room in good condition. Resume regular diet. Resume previous activity level Would consider bronchoscopy as GI work-up so far negative and patient has normal LFTs. That would put a gastric source, hepatobiliary source very low on the differential Patient does have history of COPD multiple pulmonary issues, certainly a bronchoscopy would be the next step in the work-up
--- NOTE | 2019-09-09 13:29 | PDOC CONSULTATION ---
Consultation Consult Date: 09/08/19 Provider Consulted: SERENITY IZAGUIRRE Consult reason:: Virhow's node, exclude a gastric malignancy History of Present Illness Admission Date/PCP: 08/13/19 21:55 АНДРЕЙ SUTTON History of Present Illness: JUNAID VILCHIS is a 74 year old female admitted for ongoing pulmonary issues has a history of COPD and recently found to have an enlarged left supraclavicular lymph node the differential to include possible breast cancer, esophageal or gastric or possible lymphoma I have been asked to provide for possible EGD to exclude possible esophageal or gastric cancer patient does have a personal history of breast cancer as well on speaking to the patient's daughter, she has been noted to have a limited appetite with some early satiety however her LFT's are normal no biliary obstruction is noted will schedule EGD however pulmonary work up should continue since there is a long history of COPD, multiple admission for obstructive pneumonia Past Medical History Cardiac Medical History: Reports: Atrial Fibrillation, Congestive Heart Failure, Coronary Artery Disease, Hyperlipidema, Hypertension Pulmonary Medical History: Reports: Bronchitis, Chronic Obstructive Pulmonary Disease (COPD) - stage 3, Pneumonia Neurological Medical History: Denies: Seizures Malignancy Medical History: Reports: Breast Cancer - right, over 10 years ago Musculoskeltal Medical History: Reports: Arthritis Psychiatric Medical History: Reports: Depression Past Surgical History Past Surgical History: Reports: Mastectomy - Right, 2004, Other - She remembers having colonoscopy at some point in time Social History Smoking Status: Former Smoker Cigarettes Packs Per Day: 2 Number of Years Smokin Frequency of Alcohol Use: None Hx Recreational Drug Use: No Drugs: None Hx Prescription Drug Abuse: No - Advance Directive Resuscitation Status: Full Code Family History Family History: COPD, Hypertension Parental Family History Reviewed: Yes Children Family History Reviewed: Unknown Sibling(s) Family History Reviewed.: Unknown Medication/Allergy Home Medications: Acetazolamide [Diamox Sequel 500 mg] 500 mg PO DAILY 07/01/18 Albuterol Sulfate [Proair HFA Inhalation Aerosol 8.5 gm MDI] 2 puff IH Q4HP PRN 07/01/18 Budesonide/Formoterol Fumarate [Symbicort HFA 160-4.5 mcg Inhaler 6 gm] 2 puff IH Q12 07/01/18 Calcium Carbonate/Vitamin D3 [Oyster Shell 500-Vit D3 200 Tb] 1 tab PO DAILY Citalopram Hydrobromide [Celexa 20 mg Tablet] 20 mg PO DAILY 07/01/18 Diltiazem HCl [Diltiazem 24Hr Cd] 120 mg PO DAILY 07/01/18 Gabapentin [Neurontin 300 mg Capsule] 300 mg PO Q8 07/01/18 Melatonin [Melatonin 3 mg Tablet] 3 mg PO QHS 07/01/18 Metoprolol Succinate [Toprol Xl] 25 mg PO DAILY 07/01/18 Multivitamin [Multiple Vitamins] 1 tab PO DAILY 07/01/18 Pantoprazole Sodium [Protonix] 40 mg PO DAILY 07/01/18 Tiotropium [place] [Spiriva Handihaler 18 mcg/dose (30 Dose)] 1 cap IH DAILY 07/01/18 Valsartan [Diovan 40 mg Tablet] 40 mg PO DAILY 07/01/18 Furosemide [Lasix 20 mg Tablet] 20 mg PO DAILY #30 tablet 11/14/18 Atorvastatin Calcium [Lipitor 40 mg Tablet] 40 mg PO QHS 11/20/18 Oxycodone HCl/Acetaminophen [Oxycodon-Acetaminophen 7.5-325] 1 tab PO Q8HP PRN 11/20/18 Latanoprost [Xalatan 0.005% Oph Soln 2.5 ml] 1 drop OU QHS 08/14/19 Venlafaxine HCl [Effexor 75 mg Tablet] 75 mg PO DAILY 08/14/19 Warfarin Sodium [Coumadin 3 mg Tablet] 3 mg PO QHS 08/14/19 Allergies/Adverse Reactions: bee pollen [Bee Pollen] Allergy (Unknown, Verified 01/15/18 08:05) moxifloxacin [From Avelox] Allergy (Verified 08/13/19 23:24) propoxyphene [From Darvocet-N] Allergy (Verified 01/15/18 08:05) venom-wasp [Wasp Venom] Allergy (Verified 01/15/18 08:05) Review of Systems Constitutional: PRESENT: weakness. ABSENT: fever(s), headache(s), night sweats Eyes: ABSENT: visual disturbances Ears: ABSENT: hearing changes Nose, Mouth, and Throat: ABSENT: mouth pain Cardiovascular: ABSENT: orthropnea, palpitations Respiratory: PRESENT: dyspnea. ABSENT: hemoptysis Gastrointestinal: ABSENT: melena, nausea, vomiting Genitourinary: ABSENT: dysuria, hematuria Musculoskeletal: ABSENT: deformity, joint swelling Integumentary: ABSENT: lesions, pruritus Neurological: ABSENT: syncope, tingling, tremor(s) Endocrine: ABSENT: polydipsia, polyphagia, polyuria Hematologic/Lymphatic: ABSENT: easy bruising Physical Exam Vital Signs: Temp Pulse Resp BP Pulse Ox 98.1 F 112 H 17 142/85 H 96 09/09/19 11:37 09/09/19 13:15 09/09/19 13:15 09/09/19 13:15 09/09/19 13:15 Pulse Oximeter Continuous Start: 08/25/19 05:32 Freq: RTQ4 Status: Active Protocol: Document 09/09/19 07:32 JDR (Rec: 09/09/19 07:47 JDR [id number]) Pulse Oximetry Assessment Oxygen Saturation (92-100) 97 Oxygen Flow Rate (L/min) 3 Oxygen Delivery Method Nasal Cannula Equipment Usage Equipment in Use Continuous SpO2 Machine # 11 Intake & Output 09/08/19 09/09/19 09/10/19 06:59 06:59 06:59 Intake Total 1159 659 225 Output Total 1 Balance 1158 659 225 Weight 42.8 kg 42.3 kg General appearance: PRESENT: no acute distress, thin Head exam: PRESENT: atraumatic, normocephalic Eye exam: PRESENT: EOMI, PERRLA. ABSENT: nystagmus, periorbital swelling, scleral icterus Mouth exam: PRESENT: moist, neck supple Throat exam: ABSENT: tonsillar exudate, tonsillogmegaly Neck exam: ABSENT: meningismus, tenderness Cardiovascular exam: PRESENT: irregular rhythm GI/Abdominal exam: PRESENT: soft. ABSENT: rebound, rigid, tenderness Extremities exam: ABSENT: joint swelling Musculoskeletal exam: PRESENT: full ROM Neurological exam: PRESENT: oriented to time, oriented to situation, CN II-XII grossly intact Focused psych exam: ABSENT: restlessness Skin exam: ABSENT: mottled, urticaria Results Laboratory Results: 09/08/19 08:00 09/09/19 11:45 09/09/19 11:45 Sodium 138.8 Potassium 4.0 Chloride 93 L Carbon Dioxide 39 H Anion Gap 7 BUN 14 Creatinine 0.57 Est GFR ( Amer) > 60 Glucose 118 H Calcium 9.1 Total Bilirubin 0.5 AST 22 Alkaline Phosphatase 70 Total Protein 6.2 L Albumin 2.9 L Impressions: Venous Doppler Study 08/21/19 00:00 IMPRESSION: No right jugular lower pole upper extremity venous thrombosis Incompletely occlusive mixed echogenicity clot in the left internal jugular vein No flow is identified in the left arm cephalic vein which is diffusely small 3.8 x 3.6 x 3 cm soft tissue mass in the left supraclavicular region adjacent to the thrombosed IJ vein. This could represent an enlarged lymph node Chest CT 08/23/19 08:00 IMPRESSION: Upper mediastinal adenopathy with mass-effect on venous structures, left internal jugular vein is incompletely occluded with clot on Doppler exam 08/21/2019. Large right peritracheal lymph node in the upper mediastinum may have significant mass effect on the superior vena cava. Follow-up contrast CT is recommended Lung parenchyma abnormal, with probable alveolar and interstitial edema. Multifocal pneumonia versus pulmonary infarcts. Trace pleural effusions. Carotid Doppler Study 08/25/19 00:00 IMPRESSION: Complete occlusion of the right internal carotid artery with near complete occlusion of the carotid bulb. Greater than 70% stenosis of the left common carotid artery on the basis of mixed plaque. 50 to 69% occlusion of the left internal carotid artery on the basis of mixed plaque. Elevated left vertebral artery velocities. Chest/Abdomen CTA 08/25/19 00:00 IMPRESSION: Poor contrast enhancement of the proximal right common carotid artery. Findings could indicate thrombosis/stenosis. Findings discussed with attending physician, follow-up carotid Doppler will be performed shortly Malignant appearing mediastinal adenopathy Further collapse and consolidation of the bilateral lower lobes compared to 08/23/2019. Small pleural effusions are slightly increased compared to 08/23/2019 Guidance Fluoroscopy 08/25/19 00:00 IMPRESSION: Please see combined report for performance of procedure and radiologic supervision and interpretation. Interventional Vascular Procedure 08/25/19 00:00 IMPRESSION: SUCCESSFUL PLACEMENT OF A 5 FR DUAL LUMEN 27 CM PICC IN THE LEFT BASILIC VEIN. PICC Line Insertion 08/25/19 00:00 IMPRESSION: SUCCESSFUL PLACEMENT OF A 5 FR DUAL LUMEN 27 CM PICC IN THE LEFT BASILIC VEIN. Lymph Node Biopsy Ultrasound 09/03/19 08:00 IMPRESSION: Successful ultrasound-guided biopsy of the heterogeneous left supraclavicular mass. Chest X-Ray 09/05/19 00:00 IMPRESSION: No change in bilateral multifocal airspace disease compared to 08/31/2019. Unchanged small bilateral pleural effusions. PICC line in good positioning Assessment & Plan - Diagnosis (1) Enlarged lymph node in neck Is this a current diagnosis for this admission?: Yes Plan: enlarged supraclavicular lymph nodes could include breast, esophageal , gastric, lymphoma will need EGD doubt hepatobiliary process since no LFT abnormalities further recommendations to follow will rule out possible esophageal or gastric sources Risks, benefits and alternatives are discussed with the patient in detail Oncology is following along with the pulmonary service she may need a bronchoscopy at some point - Time Time Spent: 50 to 70 Minutes
--- NOTE | 2019-09-09 17:58 | PDOC PROGRESS REPORT ---
Subjective Progress Note for:: 09/09/19 Subjective:: Patient denied any chest pain. She remain on supplemental oxygen via nasal cannula and BiPAP support while sleeping. No fever or chills. No nausea, vomiting, or abdominal pain. Her EGD completed by Dr. Durbin was devoid of any visible pathology in her upper GI region. she may benefit from MRCP evaluation. Follow up on oncology laboratory evaluation. Reason For Visit: ACUTE EXACERBATION OF COPD ANEMIA WITH NEED FOR Physical Exam Vital Signs: Temp Pulse Resp BP Pulse Ox 98.3 F 93 13 91/45 L 99 09/09/19 08:14 09/09/19 08:14 09/09/19 08:14 09/09/19 08:14 09/09/19 08:14 Pulse Oximeter Continuous Start: 08/25/19 05:32 Freq: RTQ4 Status: Active Protocol: Document 09/09/19 07:32 JDR (Rec: 09/09/19 07:47 JDR [id number]) Pulse Oximetry Assessment Oxygen Saturation (92-100) 97 Oxygen Flow Rate (L/min) 3 Oxygen Delivery Method Nasal Cannula Equipment Usage Equipment in Use Continuous SpO2 Machine # 11 Intake & Output 09/08/19 09/09/19 09/10/19 06:59 06:59 06:59 Intake Total 1159 659 Output Total 1 Balance 1158 659 Weight 42.8 kg 42.3 kg Physical Exam: General appearance: PRESENT: mild distress - remain on nasal cannula supplemental oxygen and intermittent use of BiPAP while sleeping, thin Head exam: PRESENT: atraumatic, normocephalic Eye exam: PRESENT: conjunctiva pink. ABSENT: pallor, scleral icterus Ear exam: PRESENT: normal external ear exam Mouth exam: PRESENT: moist Teeth exam: PRESENT: poor dentition Neck exam: PRESENT: lymphadenopathy - left supraclavicular fossa region Respiratory exam: PRESENT: decreased breath sounds Cardiovascular exam: PRESENT: irregular rhythm, +S1, +S2, systolic murmur - LLSB region. ABSENT: diastolic murmur, gallop GI/Abdominal exam: PRESENT: normal bowel sounds, soft. ABSENT: distended, guarding, mass, organomegaly, rebound, tenderness Extremities exam: PRESENT: improved upper extremities pedal edema, PICC line access left arm Neurological exam: PRESENT: alert, awake, oriented to person, oriented to place, oriented to time, oriented to situation, CN II-XII grossly intact. ABSENT: motor sensory deficit Psychiatric exam: PRESENT: appropriate affect, normal mood. ABSENT: homicidal ideation, suicidal ideation Skin exam: PRESENT: dry, warm, dressing over biopsy site satisfactory. Results Laboratory Results: 09/08/19 08:00 08/31/19 06:10 Impressions: Venous Doppler Study 08/21/19 00:00 IMPRESSION: No right jugular lower pole upper extremity venous thrombosis Incompletely occlusive mixed echogenicity clot in the left internal jugular vein No flow is identified in the left arm cephalic vein which is diffusely small 3.8 x 3.6 x 3 cm soft tissue mass in the left supraclavicular region adjacent to the thrombosed IJ vein. This could represent an enlarged lymph node Chest CT 08/23/19 08:00 IMPRESSION: Upper mediastinal adenopathy with mass-effect on venous structures, left internal jugular vein is incompletely occluded with clot on Doppler exam 08/21/2019. Large right peritracheal lymph node in the upper mediastinum may hernandez ve significant mass effect on the superior vena cava. Follow-up contrast CT is recommended Lung parenchyma abnormal, with probable alveolar and interstitial edema. Multifocal pneumonia versus pulmonary infarcts. Trace pleural effusions. Carotid Doppler Study 08/25/19 00:00 IMPRESSION: Complete occlusion of the right internal carotid artery with near complete occlusion of the carotid bulb. Greater than 70% stenosis of the left common carotid artery on the basis of mixed plaque. 50 to 69% occlusion of the left internal carotid artery on the basis of mixed plaque. Elevated left vertebral artery velocities. Chest/Abdomen CTA 08/25/19 00:00 IMPRESSION: Poor contrast enhancement of the proximal right common carotid artery. Findings could indicate thrombosis/stenosis. Findings discussed with attending physician, follow-up carotid Doppler will be performed shortly Malignant appearing mediastinal adenopathy Further collapse and consolidation of the bilateral lower lobes compared to 08/23/2019. Small pleural effusions are slightly increased compared to 08/23/2019 Guidance Fluoroscopy 08/25/19 00:00 IMPRESSION: Please see combined report for performance of procedure and radiologic supervision and interpretation. Interventional Vascular Procedure 08/25/19 00:00 IMPRESSION: SUCCESSFUL PLACEMENT OF A 5 FR DUAL LUMEN 27 CM PICC IN THE LEFT BASILIC VEIN. PICC Line Insertion 08/25/19 00:00 IMPRESSION: SUCCESSFUL PLACEMENT OF A 5 FR DUAL LUMEN 27 CM PICC IN THE LEFT BASILIC VEIN. Lymph Node Biopsy Ultrasound 09/03/19 08:00 IMPRESSION: Successful ultrasound-guided biopsy of the heterogeneous left s upraclavicular mass. Chest X-Ray 09/05/19 00:00 IMPRESSION: No change in bilateral multifocal airspace disease compared to 08/31/2019. Unchanged small bilateral pleural effusions. PICC line in good positioning Assessment & Plan - Diagnosis (1) Anemia requiring transfusions Is this a current diagnosis for this admission?: Yes (2) COPD with exacerbation Is this a current diagnosis for this admission?: Yes (3) Chronic atrial fibrillation Is this a current diagnosis for this admission?: Yes (4) Chronic diastolic CHF (congestive heart failure) Is this a current diagnosis for this admission?: Yes (5) HLD (hyperlipidemia) Qualifiers: Hyperlipidemia type: unspecified Qualified Code(s): E78.5 - Hyperlipidemia, unspecified Is this a current diagnosis for this admission?: Yes (6) HTN (hypertension) Qualifiers: Hypertension type: essential hypertension Qualified Code(s): I10 - Essenti al (primary) hypertension Is this a current diagnosis for this admission?: Yes (7) Cephalic vein thrombosis, left Is this a current diagnosis for this admission?: Yes (8) Enlarged lymph node in neck Is this a current diagnosis for this admission?: Yes (9) Internal jugular vein thrombosis Qualifiers: Laterality: left Qualified Code(s): I82.C12 - Acute embolism and thrombosis of left internal jugular vein Is this a current diagnosis for this admission?: Yes (10) Acute and chronic respiratory failure with hypoxia Is this a current diagnosis for this admission?: Yes (11) Bilateral stenosis of carotid arteries greater than 50% Is this a current diagnosis for this admission?: Yes (12) Lymphadenopathy, mediastinal Is this a current diagnosis for this admission?: Yes (13) Lymphadenopathy, supraclavicular Is this a current diagnosis for this admission?: Yes (14) Laryngeal candidiasis Is this a current diagnosis for this admission?: Yes (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 Is this a current diagnosis for this admission?: Yes - Time Time Spent with patient: 25-34 minutes Level of Care: TELE Medications reviewed and adjusted accordingly: Yes Anticipated discharge: Home with Homehealth Within: Other - Inpatient Certification Based on my medical assessment, after consideration of the patient's comorbidities, presenting symptoms, or acuity I expect that the services needed warrant INPATIENT care.: Yes I certify that my determination is in accordance with my understanding of Medicare's requirements for reasonable and necessary INPATIENT services [42 CFR 412.3e].: Yes Medical Necessity: Significant Comorbidiites Make Outpatient Treatment Too Risky, Need Close Monitoring Due to Risk of Patient Decompensation, Need For Continuous Telemetry Monitoring, Risk of Complication if Not Cared For in Hospital, Risk of Diagnosis Which Will Require Inpatient Eval/Care/Monitoring Post 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 Overall prognosis remain very poor due to her functional status and morbidities.
--- NOTE | 2019-09-09 18:48 | RADIOLOGY REPORT (SQ) ---
EXAM DESCRIPTION: CT ABD/PELVIS WITH IV ORAL COMPLETED DATE/TIME: 09/09/2019 6:22 pm REASON FOR STUDY: EXPLORATORY FOR PRIMARY CANCER SIGHT COMPARISON: CTA chest 08/25/2019 TECHNIQUE: CT scan of the abdomen and pelvis performed using helical scanning technique with dynamic intravenous contrast injection. Oral contrast. Images reviewed with lung, soft tissue, and bone win dows. Reconstructed coronal and sagittal MPR images reviewed. Delayed images for evaluation of the ur inary system also acquired. All images stored on PACS. All CT scanners at this facility use dose modulation, iterative reconstruction, and/or weight based d osing when appropriate to reduce radiation dose to as low as reasonably achievable (ALARA). [facility]: Dose Right [facility]: CareDose [facility]: Dose Right [facility]: Teradose 4D [facility]: Performance Indicator CONTRAST TYPE AND DOSE: contrast/concentration: Isovue 350.00 mg/ml; Total Contrast Delivered: 48.0 ml; Total Saline Delivered: 65.0 ml RENAL FUNCTION: BUN 14 creatinine 0.57 RADIATION DOSE: CT Rad equipment meets quality standard of care and radiation dose reduction techniq ues were employed. CTDIvol: 4.8 mGy. DLP: 444 mGy-cm.. LIMITATIONS: None. FINDINGS: LOWER CHEST: Minimal airspace disease in both lower lobes, likely atelectasis. There is a minimal left pleural effusion. LIVER: Normal size. No masses. No dilated ducts. SPLEEN: Normal size. No focal lesions. PANCREAS: No masses. No significant calcifications. No adjacent inflammation or peripancreatic fluid collections. Pancreatic duct not dilated. GALLBLADDER: No identified stones by CT criteria. No inflammatory changes to suggest cholecystitis. ADRENAL GLANDS: No significant masses or asymmetry. RIGHT KIDNEY AND URETER: No solid masses. There are scattered vascular calcifications. No hydrone phrosis or hydroureter. LEFT KIDNEY AND URETER: No solid masses. A small vascular calcifications present. No hydronephros is or hydroureter. AORTA AND VESSELS: No aneurysm. No dissection. Renal arteries, SMA, celiac without stenosis. RETROPERITONEUM: No aneurysm. There is marked atherosclerosis. The celiac appears occluded. There is atherosclerosis involving the SMA. BOWEL AND PERITONEAL CAVITY: There is retained stool in the descending colon, sigmoid, and rectum. S igmoid diverticulosis is suggested. No associated inflammation is seen. APPENDIX: Not identified. PELVIS: No mass. No free fluid. Normal bladder. ABDOMINAL WALL: No masses. No hernias. BONES: No significant or acute findings. OTHER: No other significant finding. IMPRESSION: 1. Subsegmental atelectasis in the lower lobes. There may be a minimal left pleural ef fusion. 2. There is considerable atherosclerosis in the abdomen. 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 There is considerable atherosclerosis in the SMA. 3. Diverticulosis coli with no evidence of acute inflammation. Possible constipation. TECHNICAL DOCUMENTATION: JOB ID: [id number] Quality ID # [id number]: Final reports with documentation of one or more dose reduction techniques (e.g., Au tomated exposure control, adjustment of the mA and/or kV according to patient size, use of iterative reconstruction technique) 2010 [employer]- All Rights Reserved Reading location - IP/workstation name: [email or web address]
[2019-09-09] MEDS ORDERED: OXYCODONE HCL IR 5 MG TABLET PO PRN (19:01)
--- NOTE | 2019-09-09 19:05 | ADVANCED CARE ---
- Diagnosis (1) Anemia requiring transfusions Diagnosis Current: Yes (2) COPD with exacerbation Diagnosis Current: Yes (3) Chronic atrial fibrillation Diagnosis Current: Yes (4) Chronic diastolic CHF (congestive heart failure) Diagnosis Current: Yes (5) HLD (hyperlipidemia) Diagnosis Current: Yes (6) HTN (hypertension) Diagnosis Current: Yes (7) Cephalic vein thrombosis, left Diagnosis Current: Yes (8) Enlarged lymph node in neck Diagnosis Current: Yes (9) Internal jugular vein thrombosis Diagnosis Current: Yes (10) Acute and chronic respiratory failure with hypoxia Diagnosis Current: Yes (11) Bilateral stenosis of carotid arteries greater than 50% Diagnosis Current: Yes (12) Lymphadenopathy, mediastinal Diagnosis Current: Yes (13) Lymphadenopathy, supraclavicular Diagnosis Current: Yes (14) Laryngeal candidiasis Diagnosis Current: Yes (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 Her overall prognosis remain poor in view of her morbidities. Document(s) Completed: Yes. Time Spent: 15 minutes
[2019-09-09] MEDS: ATORVASTATIN CALCIUM 40 MG TABLET PO SCH (21:10)
[2019-09-09] MEDS: LATANOPROST 0.005% OPH SOLN 2.5 ML OU SCH (21:11)
[2019-09-09] MEDS: OXYCODONE-ACETAMINOPHEN 5-325 MG TABLET PO PRN (22:17)
[2019-09-10] MEDS: ALBUTEROL SULFATE 0.083% NEB 2.5 MG/3 ML AMPUL NEB SCH ×7 (00:42→23:43)
[2019-09-10] MEDS: DILTIAZEM HCL 30 MG TABLET PO SCH ×4 (00:55→17:13)
[2019-09-10] MEDS: PANTOPRAZOLE SODIUM 40 MG TABLET.DR PO SCH (06:34)
[2019-09-10] MEDS: GABAPENTIN 300 MG CAPSULE PO SCH ×3 (06:35→21:21)
--- NOTE | 2019-09-10 08:26 | PDOC PROGRESS REPORT ---
Subjective Progress Note for:: 09/10/19 Subjective:: Patient did well with procedures yesterday, discussed case with gastroenterology as well as primary team, had long discussion with family as well, spent about 40 minutes in discussion today, no GI source thus far delineated, CEA is elevated, this could either point to a primary thoracic source or a colon source. But, I do not think any further procedures needed right now. At this point I think the next step would be consideration of getting her ready for discharge in the next couple days. We will have physical therapy work with her to see how strong she is, ultimately she will need home O2 eval. She wanted to change from a mechanically soft diet to regular diet, and we made that change today. I had a mary discussion about next steps of care and prognosis, and what her performance status would need to be to consider treatment. Patient seems motivated now. Hopefully she can get stronger. Reason For Visit: ACUTE EXACERBATION OF COPD ANEMIA WITH NEED FOR Physical Exam Vital Signs: Temp Pulse Resp BP Pulse Ox 98.8 F 82 15 103/40 L 95 09/10/19 00:00 09/10/19 07:00 09/10/19 04:35 09/10/19 00:00 09/10/19 05:41 Pulse Oximeter Continuous Start: 08/25/19 05:32 Freq: RTQ4 Status: Active Protocol: Document 09/10/19 04:35 PMU (Rec: 09/10/19 05:06 PMU [id number]) Pulse Oximetry Assessment Oxygen Saturation (92-100) 98 Oxygen Flow Rate (L/min) 2 Oxygen Delivery Method Nasal Cannula Fraction of Inspired Oxygen (FIO2) 28 Equipment Usage Equipment in Use Continuous SpO2 Machine # 11 Intake & Output 09/09/19 09/10/19 09/11/19 06:59 06:59 06:59 Intake Total 659 497 Balance 659 497 Weight 42.3 kg 42.5 kg General appearance: PRESENT: no acute distress, well-developed, well-nourished Head exam: PRESENT: atraumatic, normocephalic Eye exam: PRESENT: conjunctiva pink, EOMI, PERRLA. ABSENT: scleral icterus Ear exam: PRESENT: normal external ear exam Mouth exam: PRESENT: moist, tongue midline Neck exam: ABSENT: carotid bruit, JVD, lymphadenopathy, thyromegaly Respiratory exam: PRESENT: clear to auscultation leslie. ABSENT: rales, rhonchi, wheezes Cardiovascular exam: PRESENT: RRR. ABSENT: diastolic murmur, rubs, systolic murmur Pulses: PRESENT: normal dorsalis pedis pul Vascular exam: PRESENT: normal capillary refill GI/Abdominal exam: PRESENT: normal bowel sounds, soft. ABSENT: distended, guarding, mass, organolmegaly, rebound, tenderness Rectal exam: PRESENT: deferred Extremities exam: PRESENT: full ROM. ABSENT: calf tenderness, clubbing, pedal edema Neurological exam: PRESENT: alert, awake, oriented to person, oriented to place, oriented to time, oriented to situation, CN II-XII grossly intact. ABSENT: motor sensory deficit Psychiatric exam: PRESENT: appropriate affect, normal mood. ABSENT: homicidal ideation, suicidal ideation Skin exam: PRESENT: dry, intact, warm. ABSENT: cyanosis, rash Results Laboratory Results: 09/08/19 08:00 09/09/19 11:45 09/09/19 11:45 Sodium 138.8 Potassium 4.0 Chloride 93 L Carbon Dioxide 39 H Anion Gap 7 BUN 14 Creatinine 0.57 Est GFR ( Amer) > 60 Glucose 118 H Calcium 9.1 Total Bilirubin 0.5 AST 22 Alkaline Phosphatase 70 Total Protein 6.2 L Albumin 2.9 L Impressions: Venous Doppler Study 08/21/19 00:00 IMPRESSION: No right jugular lower pole upper extremity venous thrombosis Incompletely occlusive mixed echogenicity clot in the left internal jugular vein No flow is identified in the left arm cephalic vein which is diffusely small 3.8 x 3.6 x 3 cm soft tissue mass in the left supraclavicular region adjacent to the thrombosed IJ vein. This could represent an enlarged lymph node Chest CT 08/23/19 08:00 IMPRESSION: Upper mediastinal adenopathy with mass-effect on venous structures, left internal jugular vein is incompletely occluded with clot on Doppler exam 08/21/2019. Large right peritracheal lymph node in the upper mediastinum may have significant mass effect on the superior vena cava. Follow-up contrast CT is recommended Lung parenchyma abnormal, with probable alveolar and interstitial edema. Multifocal pneumonia versus pulmonary infarcts. Trace pleural effusions. Carotid Doppler Study 08/25/19 00:00 IMPRESSION: Complete occlusion of the right internal carotid artery with near complete occlusion of the carotid bulb. Greater than 70% stenosis of the left common carotid artery on the basis of mixed plaque. 50 to 69% occlusion of the left internal carotid artery on the basis of mixed plaque. Elevated left vertebral artery velocities. Chest/Abdomen CTA 08/25/19 00:00 IMPRESSION: Poor contrast enhancement of the proximal right common carotid artery. Findings could indicate thrombosis/stenosis. Findings discussed with attending physician, follow-up carotid Doppler will be performed shortly Malignant appearing mediastinal adenopathy Further collapse and consolidation of the bilateral lower lobes compared to 08/23/2019. Small pleural effusions are slightly increased compared to 08/23/2019 Guidance Fluoroscopy 08/25/19 00:00 IMPRESSION: Please see combined report for performance of procedure and radiologic supervision and interpretation. Interventional Vascular Procedure 08/25/19 00:00 IMPRESSION: SUCCESSFUL PLACEMENT OF A 5 FR DUAL LUMEN 27 CM PICC IN THE LEFT BASILIC VEIN. PICC Line Insertion 08/25/19 00:00 IMPRESSION: SUCCESSFUL PLACEMENT OF A 5 FR DUAL LUMEN 27 CM PICC IN THE LEFT BASILIC VEIN. Lymph Node Biopsy Ultrasound 09/03/19 08:00 IMPRESSION: Successful ultrasound-guided biopsy of the heterogeneous left supraclavicular mass. Chest X-Ray 09/05/19 00:00 IMPRESSION: No change in bilateral multifocal airspace disease compared to 08/31/2019. Unchanged small bilateral pleural effusions. PICC line in good positioning Abdomen/Pelvis CT 09/09/19 00:00 IMPRESSION: 1. Subsegmental atelectasis in the lower lobes. There may be a minimal left pleural effusion. 2. There is considerable atherosclerosis in the abdomen. 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 There is considerable atherosclerosis in the SMA. 3. Diverticulosis coli with no evidence of acute inflammation. Possible constipation. Status: Image reviewed by me Assessment & Plan - Diagnosis (1) Metastatic adenocarcinoma of unknown origin Is this a current diagnosis for this admission?: Yes Plan: Thus far work-up for upper GI source is negative, we would like to do PET/CT as an outpatient. I reviewed the CT images myself, and there is no true parenchymal mass in the lung that we could go after via bronchoscopy. Therefore, I believe this would be a fruitless procedure. To that extent, we will have physical therapy work with her, probable home O2 eval tomorrow, and may be discharge in the next 48 hours. - Time Time Spent with patient: 35 or more minutes - Inpatient Certification Based on my medical assessment, after consideration of the patient's comorbidities, presenting symptoms, or acuity I expect that the services needed warrant INPATIENT care.: Yes I certify that my determination is in accordance with my understanding of Medicare's requirements for reasonable and necessary INPATIENT services [42 CFR 412.3e].: Yes Medical Necessity: Risk of Complication if Not Cared For in Hospital
[2019-09-10] MEDS: METOPROLOL TARTRATE 25 MG TABLET PO SCH ×2 (10:42→21:20)
[2019-09-10] MEDS: CALCIUM CARBONATE 250 MG/VITAMIN D3 125 UNIT TABLET PO SCH (10:42)
[2019-09-10] MEDS: CITALOPRAM HYDROBROMIDE 20 MG TABLET PO SCH (10:42)
[2019-09-10] MEDS: MULTIVITAMINS W-IRON TABLET, CHEWABLE PO SCH (10:42)
[2019-09-10] MEDS: APIXABAN 5 MG TABLET PO SCH ×2 (10:42→17:13)
[2019-09-10] MEDS: UMECLIDINIUM BROMIDE 62.5 MCG/DOSE IH SCH (10:43)
[2019-09-10] MEDS: FLUTICASONE/VILANTEROL 200-25 MCG/DOSE IH SCH (10:43)
[2019-09-10] MEDS: VALSARTAN 40 MG TABLET PO SCH (10:43)
[2019-09-10] MEDS: CEFEPIME 1 GM/D5W RTU 1 GM/50 ML RTUPB IV SCH ×2 (10:43→21:20)
[2019-09-10] MEDS: POTASSIUM CHLORIDE 20 MEQ PACKET PO SCH (10:44)
[2019-09-10] MEDS: NORMAL SALINE 10 ML SDV (SCHEDULED) IV SCH ×2 (10:44→21:21)
[2019-09-10] MEDS: DOCUSATE SODIUM 100 MG CAPSULE PO SCH (10:44)
[2019-09-10] MEDS: OXYCODONE-ACETAMINOPHEN 5-325 MG TABLET PO PRN ×2 (13:05→22:28)
[2019-09-10] MEDS: OXYCODONE HCL IR 5 MG TABLET PO PRN ×2 (13:05→22:28)
[2019-09-10] MEDS: ATORVASTATIN CALCIUM 40 MG TABLET PO SCH (21:20)
[2019-09-10] MEDS: LATANOPROST 0.005% OPH SOLN 2.5 ML OU SCH (21:22)
[2019-09-10 21:38] LABS: HEMATOCRIT 25.7 % (36.0-47.0); HEMOGLOBIN 8.1 g/dL (12.0-15.5); MEAN CORPUSCULAR HEMOGLOBIN 28.4 pg (27.0-33.4); MEAN CORPUSCULAR HGB CONC 31.7 g/dL (32.0-36.0); MEAN CORPUSCULAR VOLUME 90 fl (80-97); PLATELET COUNT 269 10^3/uL (150-450); RED BLOOD COUNT 2.86 10^6/uL (3.72-5.28); RED CELL DISTRIBUTION WIDTH 22.5 % (11.5-14.0); WHITE BLOOD COUNT 12.5 10^3/uL (4.0-10.5)
[2019-09-11] MEDS: DILTIAZEM HCL 30 MG TABLET PO SCH ×4 (01:00→18:11)
[2019-09-11] MEDS: ALBUTEROL SULFATE 0.083% NEB 2.5 MG/3 ML AMPUL NEB SCH ×6 (03:52→19:14)
[2019-09-11] MEDS: PANTOPRAZOLE SODIUM 40 MG TABLET.DR PO SCH (06:07)
[2019-09-11] MEDS: GABAPENTIN 300 MG CAPSULE PO SCH ×3 (06:07→21:16)
--- NOTE | 2019-09-11 08:09 | PDOC PROGRESS REPORT ---
Subjective Progress Note for:: 09/11/19 Subjective:: Patient seems to be doing better, she was able to walk to the door and back, apparently there was some desaturation yesterday after she got up to the restroom at night and she was placed on BiPAP through the night. Of note, her CA-27-29 came back highly elevated. This is usually a breast cancer marker, although other conditions can elevate that marker. I did a full breast exam today, and did not note any large masses however the right nipple was a little bit prominent but no mass underneath. Reason For Visit: ACUTE EXACERBATION OF COPD ANEMIA WITH NEED FOR Physical Exam Vital Signs: Temp Pulse Resp BP Pulse Ox 97.6 F 108 H 19 150/80 H 98 09/11/19 05:00 09/11/19 05:00 09/11/19 05:00 09/11/19 05:00 09/11/19 05:00 Pulse Oximeter Continuous Start: 08/25/19 05:32 Freq: RTQ4 Status: Active Protocol: Document 09/11/19 03:52 DBE (Rec: 09/11/19 04:01 DBE [id number]) Pulse Oximetry Assessment Oxygen Saturation (92-100) 100 Oxygen Delivery Method Bi-pap Fraction of Inspired Oxygen (FIO2) 32 Equipment Usage Equipment in Use Continuous Pulse Oximeter 24 Hour Charge Charge Now Continuous SpO2 Machine # 11 Intake & Output 09/10/19 09/11/19 09/12/19 06:59 06:59 06:59 Intake Total 497 470 Balance 497 470 Weight 42.5 kg 44.4 kg General appearance: PRESENT: no acute distress, well-developed, well-nourished Head exam: PRESENT: atraumatic, normocephalic Eye exam: PRESENT: conjunctiva pink, EOMI, PERRLA. ABSENT: scleral icterus Ear exam: PRESENT: normal external ear exam Mouth exam: PRESENT: moist, tongue midline Neck exam: ABSENT: carotid bruit, JVD, lymphadenopathy, thyromegaly Respiratory exam: PRESENT: clear to auscultation leslie. ABSENT: rales, rhonchi, wheezes Cardiovascular exam: PRESENT: RRR. ABSENT: diastolic murmur, rubs, systolic murmur Pulses: PRESENT: normal dorsalis pedis pul Vascular exam: PRESENT: normal capillary refill GI/Abdominal exam: PRESENT: normal bowel sounds, soft. ABSENT: distended, guarding, mass, organolmegaly, rebound, tenderness Rectal exam: PRESENT: deferred Extremities exam: PRESENT: full ROM. ABSENT: calf tenderness, clubbing, pedal edema Neurological exam: PRESENT: alert, awake, oriented to person, oriented to place, oriented to time, oriented to situation, CN II-XII grossly intact. ABSENT: motor sensory deficit Psychiatric exam: PRESENT: appropriate affect, normal mood. ABSENT: homicidal ideation, suicidal ideation Skin exam: PRESENT: dry, intact, warm. ABSENT: cyanosis, rash Results Laboratory Results: 09/10/19 20:52 09/09/19 11:45 09/10/19 20:52 WBC 12.5 H RBC 2.86 L Hgb 8.1 L Hct 25.7 L MCV 90 MCH 28.4 MCHC 31.7 L RDW 22.5 H Plt Count 269 Impressions: Venous Doppler Study 08/21/19 00:00 IMPRESSION: No right jugular lower pole upper extremity venous thrombosis Incompletely occlusive mixed echogenicity clot in the left internal jugular vein No flow is identified in the left arm cephalic vein which is diffusely small 3.8 x 3.6 x 3 cm soft tissue mass in the left supraclavicular region adjacent to the thrombosed IJ vein. This could represent an enlarged lymph node Chest CT 08/23/19 08:00 IMPRESSION: Upper mediastinal adenopathy with mass-effect on venous structures, left internal jugular vein is incompletely occluded with clot on Doppler exam 08/21/2019. Large right peritracheal lymph node in the upper mediastinum may have significant mass effect on the superior vena cava. Follow-up contrast CT is recommended Lung parenchyma abnormal, with probable alveolar and interstitial edema. Multifocal pneumonia versus pulmonary infarcts. Trace pleural effusions. Carotid Doppler Study 08/25/19 00:00 IMPRESSION: Complete occlusion of the right internal carotid artery with near complete occlusion of the carotid bulb. Greater than 70% stenosis of the left common carotid artery on the basis of mixed plaque. 50 to 69% occlusion of the left internal carotid artery on the basis of mixed plaque. Elevated left vertebral artery velocities. Chest/Abdomen CTA 08/25/19 00:00 IMPRESSION: Poor contrast enhancement of the proximal right common carotid artery. Findings could indicate thrombosis/stenosis. Findings discussed with attending physician, follow-up carotid Doppler will be performed shortly Malignant appearing mediastinal adenopathy Further collapse and consolidation of the bilateral lower lobes compared to 08/23/2019. Small pleural effusions are slightly increased compared to 08/23/2019 Guidance Fluoroscopy 08/25/19 00:00 IMPRESSION: Please see combined report for performance of procedure and radiologic supervision and interpretation. Interventional Vascular Procedure 08/25/19 00:00 IMPRESSION: SUCCESSFUL PLACEMENT OF A 5 FR DUAL LUMEN 27 CM PICC IN THE LEFT BASILIC VEIN. PICC Line Insertion 08/25/19 00:00 IMPRESSION: SUCCESSFUL PLACEMENT OF A 5 FR DUAL LUMEN 27 CM PICC IN THE LEFT BASILIC VEIN. Lymph Node Biopsy Ultrasound 09/03/19 08:00 IMPRESSION: Successful ultrasound-guided biopsy of the heterogeneous left supraclavicular mass. Chest X-Ray 09/05/19 00:00 IMPRESSION: No change in bilateral multifocal airspace disease compared to 08/31/2019. Unchanged small bilateral pleural effusions. PICC line in good positioning Abdomen/Pelvis CT 09/09/19 00:00 IMPRESSION: 1. Subsegmental atelectasis in the lower lobes. There may be a minimal left pleural effusion. 2. There is considerable atherosclerosis in the abdomen. 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 There is considerable atherosclerosis in the SMA. 3. Diverticulosis coli with no evidence of acute inflammation. Possible constipation. Assessment & Plan - Diagnosis (1) Metastatic adenocarcinoma of unknown origin Is this a current diagnosis for this admission?: Yes Plan: I will ask pathology to do some evaluation for breast cancer on tumor specimen, plan for PET/CT as an outpatient, patient will see us next week once she is d ischarged. - Time Time Spent with patient: 35 or more minutes
[2019-09-11] MEDS: MULTIVITAMINS W-IRON TABLET, CHEWABLE PO SCH (10:07)
[2019-09-11] MEDS: DOCUSATE SODIUM 100 MG CAPSULE PO SCH (10:07)
[2019-09-11] MEDS: POTASSIUM CHLORIDE 20 MEQ PACKET PO SCH (10:08)
[2019-09-11] MEDS: APIXABAN 5 MG TABLET PO SCH ×2 (11:01→18:11)
[2019-09-11] MEDS: CALCIUM CARBONATE 250 MG/VITAMIN D3 125 UNIT TABLET PO SCH (11:01)
[2019-09-11] MEDS: CITALOPRAM HYDROBROMIDE 20 MG TABLET PO SCH (11:01)
[2019-09-11] MEDS: METOPROLOL TARTRATE 25 MG TABLET PO SCH ×2 (11:01→21:13)
[2019-09-11] MEDS: UMECLIDINIUM BROMIDE 62.5 MCG/DOSE IH SCH (11:02)
[2019-09-11] MEDS: CEFEPIME 1 GM/D5W RTU 1 GM/50 ML RTUPB IV SCH ×2 (11:02→21:12)
[2019-09-11] MEDS: NORMAL SALINE 10 ML SDV (SCHEDULED) IV SCH ×2 (11:02→21:16)
[2019-09-11] MEDS: VALSARTAN 40 MG TABLET PO SCH (11:03)
[2019-09-11] MEDS: FLUTICASONE/VILANTEROL 200-25 MCG/DOSE IH SCH (11:03)
[2019-09-11] MEDS: OXYCODONE-ACETAMINOPHEN 5-325 MG TABLET PO PRN ×2 (11:19→21:13)
[2019-09-11] MEDS: OXYCODONE HCL IR 5 MG TABLET PO PRN ×2 (11:20→21:13)
[2019-09-11] MEDS: ATORVASTATIN CALCIUM 40 MG TABLET PO SCH (21:12)
[2019-09-11] MEDS: LATANOPROST 0.005% OPH SOLN 2.5 ML OU SCH (21:17)
[2019-09-12] MEDS: ALBUTEROL SULFATE 0.083% NEB 2.5 MG/3 ML AMPUL NEB SCH ×5 (00:35→15:45)
[2019-09-12] MEDS: DILTIAZEM HCL 30 MG TABLET PO SCH ×3 (02:35→13:41)
[2019-09-12] MEDS: PANTOPRAZOLE SODIUM 40 MG TABLET.DR PO SCH (06:53)
[2019-09-12] MEDS: GABAPENTIN 300 MG CAPSULE PO SCH ×2 (06:55→13:41)
[2019-09-12] MEDS: OXYCODONE HCL IR 5 MG TABLET PO PRN ×2 (06:57→16:03)
[2019-09-12] MEDS: OXYCODONE-ACETAMINOPHEN 5-325 MG TABLET PO PRN ×2 (06:58→16:03)
--- NOTE | 2019-09-12 08:20 | PDOC PROGRESS REPORT ---
Subjective Progress Note for:: 09/12/19 Subjective:: Patient is stable this morning, spoke with patient and nursing and plan is to go to rehab. Reason For Visit: ACUTE EXACERBATION OF COPD ANEMIA WITH NEED FOR Physical Exam Vital Signs: Temp Pulse Resp BP Pulse Ox 98.9 F 84 16 129/74 H 97 09/12/19 00:00 09/12/19 07:00 09/12/19 04:15 09/12/19 00:00 09/12/19 04:15 Pulse Oximeter Continuous Start: 08/25/19 05:32 Freq: RTQ4 Status: Active Protocol: Document 09/12/19 04:15 DBE (Rec: 09/12/19 04:26 DBE [id number]) Pulse Oximetry Assessment Oxygen Saturation (92-100) 97 Oxygen Flow Rate (L/min) 3 Oxygen Delivery Method Nasal Cannula Fraction of Inspired Oxygen (FIO2) 32 Equipment Usage Equipment in Use Continuous SpO2 Machine # 11 Intake & Output 09/11/19 09/12/19 09/13/19 06:59 06:59 06:59 Intake Total 470 680 Balance 470 680 Weight 44.4 kg 48.1 kg General appearance: PRESENT: no acute distress, well-developed, well-nourished Head exam: PRESENT: atraumatic, normocephalic Eye exam: PRESENT: conjunctiva pink, EOMI, PERRLA. ABSENT: scleral icterus Ear exam: PRESENT: normal external ear exam Mouth exam: PRESENT: moist, tongue midline Neck exam: ABSENT: carotid bruit, JVD, lymphadenopathy, thyromegaly Respiratory exam: PRESENT: clear to auscultation leslie. ABSENT: rales, rhonchi, wheezes Cardiovascular exam: PRESENT: RRR. ABSENT: diastolic murmur, rubs, systolic murmur Pulses: PRESENT: normal dorsalis pedis pul Vascular exam: PRESENT: normal capillary refill GI/Abdominal exam: PRESENT: normal bowel sounds, soft. ABSENT: distended, guarding, mass, organolmegaly, rebound, tenderness Rectal exam: PRESENT: deferred Extremities exam: PRESENT: full ROM. ABSENT: calf tenderness, clubbing, pedal edema Neurological exam: PRESENT: alert, awake, oriented to person, oriented to place, oriented to time, oriented to situation, CN II-XII grossly intact. ABSENT: motor sensory deficit Psychiatric exam: PRESENT: appropriate affect, normal mood. ABSENT: homicidal ideation, suicidal ideation Skin exam: PRESENT: dry, intact, warm. ABSENT: cyanosis, rash Results Laboratory Results: 09/10/19 20:52 09/09/19 11:45 Impressions: Venous Doppler Study 08/21/19 00:00 IMPRESSION: No right jugular lower pole upper extremity venous thrombosis Incompletely occlusive mixed echogenicity clot in the left internal jugular vein No flow is identified in the left arm cephalic vein which is diffusely small 3.8 x 3.6 x 3 cm soft tissue mass in the left supraclavicular region adjacent to the thrombosed IJ vein. This could represent an enlarged lymph node Chest CT 08/23/19 08:00 IMPRESSION: Upper mediastinal adenopathy with mass-effect on venous structures, left internal jugular vein is incompletely occluded with clot on Doppler exam 08/21/2019. Large right peritracheal lymph node in the upper mediastinum may have significant mass effect on the superior vena cava. Follow-up contrast CT is recommended Lung parenchyma abnormal, with probable alveolar and interstitial edema. Multifocal pneumonia versus pulmonary infarcts. Trace pleural effusions. Carotid Doppler Study 08/25/19 00:00 IMPRESSION: Complete occlusion of the right internal carotid artery with near complete occlusion of the carotid bulb. Greater than 70% stenosis of the left common carotid artery on the basis of mixed plaque. 50 to 69% occlusion of the left internal carotid artery on the basis of mixed plaque. Elevated left vertebral artery velocities. Chest/Abdomen CTA 08/25/19 00:00 IMPRESSION: Poor contrast enhancement of the proximal right common carotid artery. Findings could indicate thrombosis/stenosis. Findings discussed with attending physician, follow-up carotid Doppler will be performed shortly Malignant appearing mediastinal adenopathy Further collapse and consolidation of the bilateral lower lobes compared to 08/23/2019. Small pleural effusions are slightly increased compared to 08/23/2019 Guidance Fluoroscopy 08/25/19 00:00 IMPRESSION: Please see combined report for performance of procedure and radiologic supervision and interpretation. Interventional Vascular Procedure 08/25/19 00:00 IMPRESSION: SUCCESSFUL PLACEMENT OF A 5 FR DUAL LUMEN 27 CM PICC IN THE LEFT BASILIC VEIN. PICC Line Insertion 08/25/19 00:00 IMPRESSION: SUCCESSFUL PLACEMENT OF A 5 FR DUAL LUMEN 27 CM PICC IN THE LEFT BASILIC VEIN. Lymph Node Biopsy Ultrasound 09/03/19 08:00 IMPRESSION: Successful ultrasound-guided biopsy of the heterogeneous left supraclavicular mass. Chest X-Ray 09/05/19 00:00 IMPRESSION: No change in bilateral multifocal airspace disease compared to 08/31/2019. Unchanged small bilateral pleural effusions. PICC line in good positioning Abdomen/Pelvis CT 09/09/19 00:00 IMPRESSION: 1. Subsegmental atelectasis in the lower lobes. There may be a minimal left pleural effusion. 2. There is considerable atherosclerosis in the abdomen. 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 There is considerable atherosclerosis in the SMA. 3. Diverticulosis coli with no evidence of acute inflammation. Possible constipation. Assessment & Plan - Diagnosis (1) Metastatic adenocarcinoma of unknown origin Is this a current diagnosis for this admission?: Yes Plan: Patient will go to rehab and get stronger, thereafter, she will see us as an outpatient and we can consider where to go with the cancer. - Time Time Spent with patient: 15-24 minutes
--- NOTE | 2019-09-12 08:35 | PDOC PROGRESS REPORT ---
Subjective Progress Note for:: 09/10/19 Subjective:: Patient denied any chest pain. She remain on supplemental oxygen via nasal cannula and BiPAP support while sleeping. No fever or chills. No nausea, vomiting, or abdominal pain. Reason For Visit: ACUTE EXACERBATION OF COPD ANEMIA WITH NEED FOR Physical Exam Vital Signs: Temp Pulse Resp BP Pulse Ox 98.1 F 70 18 121/47 L 90 L 09/10/19 20:00 09/10/19 20:00 09/10/19 20:00 09/10/19 20:00 09/10/19 20:00 Pulse Oximeter Continuous Start: 08/25/19 05:32 Freq: RTQ4 Status: Active Protocol: Document 09/10/19 19:20 [facility] (Rec: 09/10/19 19:28 [facility] [id number]) Pulse Oximetry Assessment Oxygen Saturation (92-100) 100 Oxygen Flow Rate (L/min) 2 Oxygen Delivery Method Nasal Cannula Fraction of Inspired Oxygen (FIO2) 28 Equipment Usage Equipment in Use Continuous SpO2 Machine # 11 Intake & Output 09/09/19 09/10/19 09/11/19 06:59 06:59 06:59 Intake Total 659 497 50 Balance 659 497 50 Weight 42.3 kg 42.5 kg Physical Exam: General appearance: PRESENT: remain on nasal cannula supplemental oxygen and intermittent use of BiPAP while sleeping, thin Head exam: PRESENT: atraumatic, normocephalic Eye exam: PRESENT: conjunctiva pink. ABSENT: pallor, scleral icterus Ear exam: PRESENT: normal external ear exam Mouth exam: PRESENT: moist Teeth exam: PRESENT: poor dentition Neck exam: PRESENT: lymphadenopathy - left supraclavicular fossa region site of biopsy dressing satisfactory. Respiratory exam: PRESENT: decreased breath sounds Cardiovascular exam: PRESENT: irregular rhythm, +S1, +S2, systolic murmur - LLSB region. ABSENT: diastolic murmur, gallop GI/Abdominal exam: PRESENT: normal bowel sounds, soft. ABSENT: distended, guarding, mass, organomegaly, rebound, tenderness Extremities exam: PRESENT: improved upper extremities pedal edema, PICC line access left arm Neurological exam: PRESENT: alert, awake, oriented to person, oriented to place, oriented to time, oriented to situation, CN II-XII grossly intact. ABSENT: motor sensory deficit Psychiatric exam: PRESENT: appropriate affect, normal mood. ABSENT: homicidal ideation, suicidal ideation Skin exam: PRESENT: dry, warm, dressing over biopsy site satisfactory. Results Laboratory Results: 09/08/19 08:00 09/09/19 11:45 Impressions: Venous Doppler Study 08/21/19 00:00 IMPRESSION: No right jugular lower pole upper extremity venous thrombosis Incompletely occlusive mixed echogenicity clot in the left internal jugular vein No flow is identified in the left arm cephalic vein which is diffusely small 3.8 x 3.6 x 3 cm soft tissue mass in the left supraclavicular region adjacent to the thrombosed IJ vein. This could represent an enlarged lymph node Chest CT 08/23/19 08:00 IMPRESSION: Upper mediastinal adenopathy with mass-effect on venous structures, left internal jugular vein is incompletely occluded with clot on Doppler exam 08/21/2019. Large right peritracheal lymph node in the upper mediastinum may have significant mass effect on the superior vena cava. Follow-up contrast CT is recommended Lung parenchyma abnormal, with probable alveolar and interstitial edema. Multifocal pneumonia versus pulmonary infarcts. Trace pleural effusions. Carotid Doppler Study 08/25/19 00:00 IMPRESSION: Complete occlusion of the right internal carotid artery with near complete occlusion of the carotid bulb. Greater than 70% stenosis of the left common carotid artery on the basis of mixed plaque. 50 to 69% occlusion of the left internal carotid artery on the basis of mixed plaque. Elevated left vertebral artery velocities. Chest/Abdomen CTA 08/25/19 00:00 IMPRESSION: Poor contrast enhancement of the proximal right common carotid artery. Findings could indicate thrombosis/stenosis. Findings discussed with attending physician, follow-up carotid Doppler will be performed shortly Malignant appearing mediastinal adenopathy Further collapse and consolidation of the bilateral lower lobes compared to 08/23/2019. Small pleural effusions are slightly increased compared to 08/23/2019 Guidance Fluoroscopy 08/25/19 00:00 IMPRESSION: Please see combined report for performance of procedure and radiologic supervision and interpretation. Interventional Vascular Procedure 08/25/19 00:00 IMPRESSION: SUCCESSFUL PLACEMENT OF A 5 FR DUAL LUMEN 27 CM PICC IN THE LEFT BASILIC VEIN. PICC Line Insertion 08/25/19 00:00 IMPRESSION: SUCCESSFUL PLACEMENT OF A 5 FR DUAL LUMEN 27 CM PICC IN THE LEFT BASILIC VEIN. Lymph Node Biopsy Ultrasound 09/03/19 08:00 IMPRESSION: Successful ultrasound-guided biopsy of the heterogeneous left supraclavicular mass. Chest X-Ray 09/05/19 00:00 IMPRESSION: No change in bilateral multifocal airspace disease compared to 08/31/2019. Unchanged small bilateral pleural effusions. PICC line in good positioning Abdomen/Pelvis CT 09/09/19 00:00 IMPRESSION: 1. Subsegmental atelectasis in the lower lobes. There may be a minimal left pleural effusion. 2. There is considerable atherosclerosis in the abdomen. 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 There is considerable atherosclerosis in the SMA. 3. Diverticulosis coli with no evidence of acute inflammation. Possible constipation. Assessment & Plan - Diagnosis (1) Anemia requiring transfusions Is this a current diagnosis for this admission?: Yes (2) COPD with exacerbation Is this a current diagnosis for this admission?: Yes (3) Chronic atrial fibrillation Is this a current diagnosis for this admission?: Yes (4) Chronic diastolic CHF (congestive heart failure) Is this a current diagnosis for this admission?: Yes (5) HLD (hyperlipidemia) Qualifiers: Hyperlipidemia type: unspecified Qualified Code(s): E78.5 - Hyperlipidemia, unspecified Is this a current diagnosis for this admission?: Yes (6) HTN (hypertension) Qualifiers: Hypertension type: essential hypertension Qualified Code(s): I10 - Essential (primary) hypertension Is this a current diagnosis for this admission?: Yes (7) Cephalic vein thrombosis, left Is this a current diagnosis for this admission?: Yes (8) Enlarged lymph node in neck Is this a current diagnosis for this admission?: Yes (9) Internal jugular vein thrombosis Qualifiers: Laterality: left Qualified Code(s): I82.C12 - Acute embolism and thrombosis of left internal jugular vein Is this a current diagnosis for this admission?: Yes (10) Acute and chronic respiratory failure with hypoxia Is this a current diagnosis for this admission?: Yes (11) Bilateral stenosis of carotid arteries greater than 50% Is this a current diagnosis for this admission?: Yes (12) Lymphadenopathy, mediastinal Is this a current diagnosis for this admission?: Yes (13) Lymphadenopathy, supraclavicular Is this a current diagnosis for this admission?: Yes (14) Laryngeal candidiasis Is this a current diagnosis for this admission?: Yes (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 Is this a current diagnosis for this admission?: Yes - Time Time Spent with patient: 35 or more minutes Level of Care: TELE Medications reviewed and adjusted accordingly: Yes Anticipated discharge: SNF Within: Other - Inpatient Certification Based on my medical assessment, after consideration of the patient's comorbidities, presenting symptoms, or acuity I expect that the services needed warrant INPATIENT care.: Yes I certify that my determination is in accordance with my understanding of Medicare's requirements for reasonable and necessary INPATIENT services [42 CFR 412.3e].: Yes Medical Necessity: Significant Comorbidiites Make Outpatient Treatment Too Risky, Need Close Monitoring Due to Risk of Patient Decompensation, Need For Continuous Telemetry Monitoring, Need for Nebulizer Therapy and Monitoring of Response, Risk of Complication if Not Cared For in Hospital, Risk of Diagnosis Which Will Require Inpatient Eval/Care/Monitoring Post Hospital Care: D/C or Transfer Summary - Plan Summary Plan Summary: Continue current medical management. Oncology team input appreciated. Possible disposition to SNF for short term rehabilitation. discussed with patient and family
--- NOTE | 2019-09-12 08:39 | PDOC PROGRESS REPORT ---
Subjective Progress Note for:: 09/11/19 Subjective:: Patient denied any chest pain. She remain on supplemental oxygen via nasal cannula and BiPAP support while sleeping. No fever or chills. No nausea, vomiting, or abdominal pain. Oncology team concern regarding cancer bio-makers discussed with the patient and family along the line for further evaluation to identify primary source of her metastatic disease process. Reason For Visit: ACUTE EXACERBATION OF COPD ANEMIA WITH NEED FOR Physical Exam Vital Signs: Temp Pulse Resp BP Pulse Ox 98.2 F 70 12 126/53 H 100 09/11/19 16:46 09/11/19 16:46 09/11/19 16:46 09/11/19 16:46 09/11/19 16:46 Pulse Oximeter Continuous Start: 08/25/19 05:32 Freq: RTQ4 Status: Active Protocol: Document 09/11/19 16:07 [facility] (Rec: 09/11/19 16:09 [facility] [id number]) Pulse Oximetry Assessment Oxygen Saturation (92-100) 97 Oxygen Flow Rate (L/min) 3 Oxygen Delivery Method Nasal Cannula Fraction of Inspired Oxygen (FIO2) 32 Equipment Usage Equipment in Use Continuous SpO2 Machine # 11 Intake & Output 09/10/19 09/11/19 09/12/19 06:59 06:59 06:59 Intake Total 497 470 Balance 497 470 Weight 42.5 kg 44.4 kg Physical Exam: General appearance: PRESENT: remain on nasal cannula supplemental oxygen and intermittent use of BiPAP while sleeping, thin Head exam: PRESENT: atraumatic, normocephalic Eye exam: PRESENT: conjunctiva pink. ABSENT: pallor, scleral icterus Ear exam: PRESENT: normal external ear exam Mouth exam: PRESENT: moist Teeth exam: PRESENT: poor dentition Neck exam: PRESENT: lymphadenopathy - left supraclavicular fossa region site of biopsy dressing satisfactory. Respiratory exam: PRESENT: decreased breath sounds Cardiovascular exam: PRESENT: irregular rhythm, +S1, +S2, systolic murmur - LLSB region. ABSENT: diastolic murmur, gallop GI/Abdominal exam: PRESENT: normal bowel sounds, soft. ABSENT: distended, guarding, mass, organomegaly, rebound, tenderness Extremities exam: PRESENT: improved upper extremities pedal edema, PICC line access left arm Neurological exam: PRESENT: alert, awake, oriented to person, oriented to place, oriented to time, oriented to situation, CN II-XII grossly intact. ABSENT: motor sensory deficit Psychiatric exam: PRESENT: appropriate affect, normal mood. ABSENT: homicidal ideation, suicidal ideation Skin exam: PRESENT: dry, warm, dressing over biopsy site satisfactory. Results Laboratory Results: 09/10/19 20:52 09/09/19 11:45 09/10/19 20:52 WBC 12.5 H RBC 2.86 L Hgb 8.1 L Hct 25.7 L MCV 90 MCH 28.4 MCHC 31.7 L RDW 22.5 H Plt Count 269 Impressions: Venous Doppler Study 08/21/19 00:00 IMPRESSION: No right jugular lower pole upper extremity venous thrombosis Incompletely occlusive mixed echogenicity clot in the left internal jugular vein No flow is identified in the left arm cephalic vein which is diffusely small 3.8 x 3.6 x 3 cm soft tissue mass in the left supraclavicular region adjacent to the thrombosed IJ vein. This could represent an enlarged lymph node Chest CT 08/23/19 08:00 IMPRESSION: Upper mediastinal adenopathy with mass-effect on venous structures, left internal jugular vein is incompletely occluded with clot on Doppler exam 08/21/2019. Large right peritracheal lymph node in the upper mediastinum may have significant mass effect on the superior vena cava. Follow-up contrast CT is recommended Lung parenchyma abnormal, with probable alveolar and interstitial edema. Multifocal pneumonia versus pulmonary infarcts. Trace pleural effusions. Carotid Doppler Study 08/25/19 00:00 IMPRESSION: Complete occlusion of the right internal carotid artery with near complete occlusion of the carotid bulb. Greater than 70% stenosis of the left common carotid artery on the basis of mixed plaque. 50 to 69% occlusion of the left internal carotid artery on the basis of mixed plaque. Elevated left vertebral artery velocities. Chest/Abdomen CTA 08/25/19 00:00 IMPRESSION: Poor contrast enhancement of the proximal right common carotid artery. Findings could indicate thrombosis/stenosis. Findings discussed with attending physician, follow-up carotid Doppler will be performed shortly Malignant appearing mediastinal adenopathy Further collapse and consolidation of the bilateral lower lobes compared to 08/23/2019. Small pleural effusions are slightly increased compared to 08/23/2019 Guidance Fluoroscopy 08/25/19 00:00 IMPRESSION: Please see combined report for performance of procedure and radiologic supervision and interpretation. Interventional Vascular Procedure 08/25/19 00:00 IMPRESSION: SUCCESSFUL PLACEMENT OF A 5 FR DUAL LUMEN 27 CM PICC IN THE LEFT BASILIC VEIN. PICC Line Insertion 08/25/19 00:00 IMPRESSION: SUCCESSFUL PLACEMENT OF A 5 FR DUAL LUMEN 27 CM PICC IN THE LEFT BASILIC VEIN. Lymph Node Biopsy Ultrasound 09/03/19 08:00 IMPRESSION: Successful ultrasound-guided biopsy of the heterogeneous left supraclavicular mass. Chest X-Ray 09/05/19 00:00 IMPRESSION: No change in bilateral multifocal airspace disease compared to 1 10/31/2018. Unchanged small bilateral pleural effusions. PICC line in good positioning Abdomen/Pelvis CT 09/09/19 00:00 IMPRESSION: 1. Subsegmental atelectasis in the lower lobes. There may be a minimal left pleural effusion. 2. There is considerable atherosclerosis in the abdomen. 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 There is considerable atherosclerosis in the SMA. 3. Diverticulosis coli with no evidence of acute inflammation. Possible constipation. Assessment & Plan - Diagnosis (1) Anemia requiring transfusions Is this a current diagnosis for this admission?: Yes (2) COPD with exacerbation Is this a current diagnosis for this admission?: Yes (3) Chronic atrial fibrillation Is this a current diagnosis for this admission?: Yes (4) Chronic diastolic CHF (congestive heart failure) Is this a current diagnosis for this admission?: Yes (5) HLD (hyperlipidemia) Qualifiers: Hyperlipidemia type: unspecified Qualified Code(s): E78.5 - Hyperlipidemia, unspecified Is this a current diagnosis for this admission?: Yes (6) HTN (hypertension) Qualifiers: Hypertension type: essential hypertension Qualified Code(s): I10 - Essential (primary) hypertension Is this a current diagnosis for this admission?: Yes (7) Cephalic vein thrombosis, left Is this a current diagnosis for this admission?: Yes (8) Enlarged lymph node in neck Is this a current diagnosis for this admission?: Yes (9) Internal jugular vein thrombosis Qualifiers: Laterality: left Qualified Code(s): I82.C12 - Acute embolism and thrombosis of left internal jugular vein Is this a current diagnosis for this admission?: Yes (10) Acute and chronic respiratory failure with hypoxia Is this a current diagnosis for this admission?: Yes (11) Bilateral stenosis of carotid arteries greater than 50% Is this a current diagnosis for this admission?: Yes (12) Lymphadenopathy, mediastinal Is this a current diagnosis for this admission?: Yes (13) Lymphadenopathy, supraclavicular Is this a current diagnosis for this admission?: Yes (14) Laryngeal candidiasis Is this a current diagnosis for this admission?: Yes (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 Is this a current diagnosis for this admission?: Yes - Time Time Spent with patient: 25-34 minutes Level of Care: TELE Medications reviewed and adjusted accordingly: Yes Anticipated discharge: SNF Within: Other - Inpatient Certification Based on my medical assessment, after consideration of the patient's comorbidities, presenting symptoms, or acuity I expect that the services needed warrant INPATIENT care.: Yes I certify that my determination is in accordance with my understanding of Medicare's requirements for reasonable and necessary INPATIENT services [42 CFR 412.3e].: Yes Medical Necessity: Significant Comorbidiites Make Outpatient Treatment Too Risky, Need Close Monitoring Due to Risk of Patient Decompensation, Need For Continuous Telemetry Monitoring, Need for Nebulizer Therapy and Monitoring of Response, Risk of Complication if Not Cared For in Hospital, Risk of Diagnosis Which Will Require Inpatient Eval/Care/Monitoring Post Hospital Care: D/C Cafeteria Assistant Documentation - Plan Summary Plan Summary: Continue current medication management. Possible transfer to SNF tomorrow. I discussed case with shutdown planner and I was informed that patient do have a bed offer at local SNF.
--- NOTE | 2019-09-12 09:07 | PDOC TRANSFER SUMMARY ---
Impression - Admit/DC Date/PCP Admission Date/Primary Care Provider: 08/13/19 21:55 АНДРЕЙ SUTTON Discharge Date: 09/12/19 - Discharge Diagnosis (1) Anemia requiring transfusions Is this a current diagnosis for this admission?: Yes (2) COPD with exacerbation Is this a current diagnosis for this admission?: Yes (3) Chronic atrial fibrillation Is this a current diagnosis for this admission?: Yes (4) Chronic diastolic CHF (congestive heart failure) Is this a current diagnosis for this admission?: Yes (5) HLD (hyperlipidemia) Is this a current diagnosis for this admission?: Yes (6) HTN (hypertension) Is this a current diagnosis for this admission?: Yes (7) Cephalic vein thrombosis, left Is this a current diagnosis for this admission?: Yes (8) Enlarged lymph node in neck Is this a current diagnosis for this admission?: Yes (9) Internal jugular vein thrombosis Is this a current diagnosis for this admission?: Yes (10) Acute and chronic respiratory failure with hypoxia Is this a current diagnosis for this admission?: Yes (11) Bilateral stenosis of carotid arteries greater than 50% Is this a current diagnosis for this admission?: Yes (12) Lymphadenopathy, mediastinal Is this a current diagnosis for this admission?: Yes (13) Lymphadenopathy, supraclavicular Is this a current diagnosis for this admission?: Yes (14) Laryngeal candidiasis Is this a current diagnosis for this admission?: Yes (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 She has history of end stage COPD requiring supplemental oxygen via nasal cannula. She was transferred to ICU due to decompensation of her respiratory system with hemodynamic instability. She was diagnosed with bilateral carotid artery stenosis with Internal jugular vein thrombosis and left cephalic vein thrombosis. Patient has history of chronic atrial fibrillation on anticoagulation and currently remain on Eliquis therapy. She demonstrated extensive adenopathy on further evaluation of her pulmonary condition including mediasternal, cervical and supraclavicular regions. Further evaluation of her supraclavicular lymph node by biopsy revealed metastatic adenocarcinoma. She was seen in consultation by Dr. Ruiz, police superintendent, Dr. Durbin, book or script editor, and Dr. Willson, medical oncologist. Her EGD did note reveal any contributory pathology to our concern regarding her demonstrable Virchow's node pattern. Her cancer bio-maker elevated CEA, CA-15-3 antigen, and CA 27-29. There is distant history of breast cancer and concern for right nipple prominence at this time. She will be discharged to [facility] for short term rehabilitation. she will follow up with Dr Willson upon discharge from the SNF. She will follow up with me upon discharge from the nursing as instructed. Her overall prognosis remain poor and she is very high risk for 30 days readmission. Her functional status remain compromised due to her underlying morbidities. - Additional Information Resuscitation Status: Full Code Referrals: KLAUS VAZ MD [COMMUNITY BASED STAFF] - FLORENTIN ALCANTAR MD [ACTIVE STAFF] - 09/16/19 3:30 pm АНДРЕЙ SUTTON MD [Primary Care Provider] - (call office before discharge from SNF for office follow up appointment.) Prescriptions: Oxycodone HCl/Acetaminophen [Oxycodon-Acetaminophen 7.5-325] 1 tab PO Q8HP PRN #60 PRN Reason: For Pain Home Medications: Acetazolamide [Diamox Sequel 500 mg] 500 mg PO DAILY 07/01/18 Albuterol Sulfate [Proair HFA Inhalation Aerosol 8.5 gm MDI] 2 puff IH Q4HP PRN 07/01/18 Budesonide/Formoterol Fumarate [Symbicort HFA 160-4.5 mcg Inhaler 6 gm] 2 puff IH Q12 07/01/18 Calcium Carbonate/Vitamin D3 [Oyster Shell 500-Vit D3 200 Tb] 1 tab PO DAILY 07/01/18 Citalopram Hydrobromide [Celexa 20 mg Tablet] 20 mg PO DAILY 07/01/18 Diltiazem HCl [Diltiazem 24Hr Cd] 120 mg PO DAILY 07/01/18 Melatonin [Melatonin 3 mg Tablet] 3 mg PO QHS 07/01/18 Metoprolol Succinate [Toprol Xl] 25 mg PO DAILY 07/01/18 Multivitamin [Multiple Vitamins] 1 tab PO DAILY 07/01/18 Pantoprazole Sodium [Protonix] 40 mg PO DAILY 07/01/18 Tiotropium Hen[place] [Spiriva Handihaler 18 mcg/dose (30 Dose)] 1 cap IH DAILY 07/01/18 Valsartan [Diovan 40 mg Tablet] 40 mg PO DAILY 07/01/18 Furosemide [Lasix 20 mg Tablet] 20 mg PO DAILY #30 tablet 11/14/18 Atorvastatin Calcium [Lipitor 40 mg Tablet] 40 mg PO QHS 11/20/18 Latanoprost [Xalatan 0.005% Oph Soln 2.5 ml] 1 drop OU QHS 08/14/19 Venlafaxine HCl [Effexor 75 mg Tablet] 75 mg PO DAILY 08/14/19 Albuterol Sulfate [Ventolin 0.083% Neb 2.5 mg/3 mL Ampul] 2.5 mg NEB RTQ4 vial.neb 09/12/19 Apixaban [Eliquis 5 mg Tablet] 5 mg PO BID #0 tablet 09/12/19 Heparin Sodium,Porcine [Heparin Flush 10 Unit/ml 5 ml Disp.syrg] 30 unit IV .AFTER EACH USE PRN disp.syrin 09/12/19 Heparin Sodium,Porcine [Heparin Flush 10 Unit/ml 5 ml Disp.syrg] 30 unit IV Q12 disp.syrin 09/12/19 Oxycodone HCl/Acetaminophen [Oxycodon-Acetaminophen 7.5-325] 1 tab PO Q8HP PRN #60 09/12/19 Potassium Chloride [Potassium Chloride 20 Meq Packet] 40 meq PO DAILY packet 09/12/19 History of Present Illiness History of Present Illness: JUNAID VILCHIS is a 74 year old female known to my practice who presented to the office due to worsening difficulty with breathing, increase cough and sputum production. She claimed low grade fever and always feeling cold. There is associated nausea and poor appreciated. She reported nasal and sinus congestion. She denied ongoing cigarette smoking but has significant history of smoking and underlying supplemental oxygen dependent COPD. Her initial evaluation in the office was significant for anemia with leukocytosis and scattered wet crackles of examination. She was advised hospitalization for further evaluation and management. Her morbidities are as listed below. Hospital Course Hospital Course: Patient was admitted as case of severe anemia with need for blood transfusion and pneumonia with acute renal injury. She has history of end stage COPD requiring supplemental oxygen via nasal cannula. She was transferred to ICU due to decompensation of her respiratory system with hemodynamic instability. She was diagnosed with bilateral carotid artery stenosis with Internal jugular vein thrombosis and left cephalic vein thrombosis. Patient has history of chronic atrial fibrillation on anticoagulation and currently remain on Eliquis therapy. She demonstrated extensive adenopathy on further evaluation of her pulmonary condition including mediasternal, cervical and supraclavicular regions. Further evaluation of her supraclavicular lymph node by biopsy revealed metastatic adenocarcinoma. She was seen in consultation by Dr. Ruiz, police superintendent, Dr. Durbin, book or script editor, and Dr. Willson, medical oncologist. Her EGD did note reveal any contributory pathology to our concern regarding her demonstrable Virchow's node pattern. Her cancer bio-maker elevated CEA, CA-15-3 antigen, and CA 27-29. There is distant history of breast cancer and concern for right nipple prominence at this time. She will be discharged to [facility] for short term rehabilitation. she will follow up with Dr Willson upon discharge from the SNF. She will follow up with me upon discharge from the nursing as instructed. Her overall prognosis remain poor and she is very high risk for 30 days readmission. Her functional status remain compromised due to her underlying morbidities. Physical Exam Vital Signs: Temp Pulse Resp BP Pulse Ox 98.9 F 84 16 129/74 H 97 09/12/19 00:00 09/12/19 07:00 09/12/19 04:15 09/12/19 00:00 09/12/19 04:15 Pulse Oximeter Continuous Start: 08/25/19 05:32 Freq: RTQ4 Status: Active Protocol: Document 09/12/19 04:15 DBE (Rec: 09/12/19 04:26 DBE [id number]) Pulse Oximetry Assessment Oxygen Saturation (92-100) 97 Oxygen Flow Rate (L/min) 3 Oxygen Delivery Method Nasal Cannula Fraction of Inspired Oxygen (FIO2) 32 Equipment Usage Equipment in Use Continuous SpO2 Machine # 11 Intake & Output 09/11/19 09/12/19 09/13/19 06:59 06:59 06:59 Intake Total 470 680 Balance 470 680 Weight 44.4 kg 48.1 kg General appearance: PRESENT: remain on nasal cannula supplemental oxygen and intermittent use of BiPAP while sleeping, thin Head exam: PRESENT: atraumatic, normocephalic Eye exam: PRESENT: conjunctiva pink. ABSENT: pallor, scleral icterus Ear exam: PRESENT: normal external ear exam Mouth exam: PRESENT: moist Teeth exam: PRESENT: poor dentition Neck exam: PRESENT: lymphadenopathy - left supraclavicular fossa region site of biopsy dressing satisfactory. Respiratory exam: PRESENT: decreased breath sounds Cardiovascular exam: PRESENT: irregular rhythm, +S1, +S2, systolic murmur - LLSB region. ABSENT: diastolic murmur, gallop GI/Abdominal exam: PRESENT: normal bowel sounds, soft. ABSENT: distended, guarding, mass, organomegaly, rebound, tenderness Extremities exam: PRESENT: improved upper extremities pedal edema, PICC line access left arm Neurological exam: PRESENT: alert, awake, oriented to person, oriented to place, oriented to time, oriented to situation, CN II-XII grossly intact. ABSENT: motor sensory deficit Psychiatric exam: PRESENT: appropriate affect, normal mood. ABSENT: homicidal ideation, suicidal ideation Skin exam: PRESENT: dry, warm, dressing over biopsy site satisfactory. Results Laboratory Results: WBC 12.5 10^3/uL (4.0-10.5) H 09/10/19 20:52 RBC 2.86 10^6/uL (3.72-5.28) L 09/10/19 20:52 Hgb 8.1 g/dL (12.0-15.5) L 09/10/19 20:52 Hct 25.7 % (36.0-47.0) L 09/10/19 20:52 MCV 90 fl (80-97) 09/10/19 20:52 MCH 28.4 pg (27.0-33.4) 09/10/19 20:52 MCHC 31.7 g/dL (32.0-36.0) L 09/10/19 20:52 RDW 22.5 % (11.5-14.0) H 09/10/19 20:52 Plt Count 269 10^3/uL (150-450) 09/10/19 20:52 Lymph % (Auto) 8.3 % (13-45) L 08/31/19 06:10 [place] % (Auto) 7.8 % (3-13) 08/31/19 06:10 Eos % (Auto) 2.2 % (0-6) 08/31/19 06:10 Baso % (Auto) 0.6 % (0-2) 08/31/19 06:10 Absolute Neuts (auto) 9.0 10^3/uL (1.7-8.2) H 08/31/19 06:10 Absolute Lymphs (auto) 0.9 10^3/uL (0.5-4.7) 08/31/19 06:10 Absolute Monos (auto) 0.9 10^3/uL (0.1-1.4) 08/31/19 06:10 Absolute Eos (auto) 0.2 10^3/uL (0.0-0.6) 08/31/19 06:10 Absolute Basos (auto) 0.1 10^3/uL (0.0-0.2) 08/31/19 06:10 Total Counted 100 08/22/19 07:17 Seg Neutrophils % 81.1 % (42-78) H 08/31/19 06:10 Seg Neuts % (Manual) 84 % (42-78) H 08/22/19 07:17 Lymphocytes % (Manual) 5 % (13-45) L 08/22/19 07:17 Monocytes % (Manual) 10 % (3-13) 08/22/19 07:17 Eosinophils % (Manual) 1 % (0-6) 08/22/19 07:17 Basophils % (Manual) 0 % (0-2) 08/22/19 07:17 Abs Neuts (Manual) 12.0 10^3/uL (1.7-8.2) H 08/22/19 07:17 Abs Lymphs (Manual) 0.7 10^3/uL (0.5-4.7) 08/22/19 07:17 Abs Monocytes (Manual) 1.4 10^3/uL (0.1-1.4) 08/22/19 07:17 Absolute Eos (Manual) 0.1 10^3/uL (0.0-0.6) 08/22/19 07:17 Abs Basophils (Manual) 0.0 10^3/uL (0.0-0.2) 08/22/19 07:17 Toxic Granulation 1+ 08/19/19 04:15 Platelet Estimate Cancelled 08/18/19 06:20 Platelet Comment ADEQUATE 08/22/19 07:17 Polychromasia SLIGHT 08/14/19 10:37 Poikilocytosis 3+ 08/19/19 04:15 Anisocytosis 3+ 08/22/19 07:17 Tear Drop Cells 1+ 08/19/19 04:15 Ovalocytes SLIGHT 08/22/19 07:17 [place] Cells SLIGHT 08/19/19 04:15 Acanthocytes (Spur) SLIGHT 08/14/19 10:37 Schistocytes SLIGHT 08/19/19 04:15 PT 16.4 SEC (11.4-15.4) H 09/03/19 06:50 INR 1.31 09/03/19 06:50 APTT 35.9 SEC (23.5-35.8) H 09/03/19 06:50 Carbonic Acid 1.92 mmol/L (1.05-1.35) H 09/05/19 11:34 HCO3/H2CO3 Ratio 19:1 09/05/19 11:34 ABG pH 7.39 (7.35-7.45) 09/05/19 11:34 ABG pCO2 63.8 mmHg (35-45) H 09/05/19 11:34 ABG pO2 74.4 mmHg (80-100) L 09/05/19 11:34 ABG HCO3 37.5 mmol/L (20-24) H 09/05/19 11:34 ABG Total CO2 39.5 mmol/L (21-25) H 09/05/19 11:34 ABG O2 Saturation 94.3 % (94-98) 09/05/19 11:34 ABG Base Excess 10.5 mmol/L 09/05/19 11:34 FiO2 32% 09/05/19 11:34 Sodium 138.8 mmol/L (137-145) 09/09/19 11:45 Potassium 4.0 mmol/L (3.6-5.0) 09/09/19 11:45 Chloride 93 mmol/L (98-107) L 09/09/19 11:45 Carbon Dioxide 39 mmol/L (22-30) H 09/09/19 11:45 Anion Gap 7 (5-19) 09/09/19 11:45 BUN 14 mg/dL (7-20) 09/09/19 11:45 Creatinine 0.57 mg/dL (0.52-1.25) 09/09/19 11:45 Est GFR ( Amer) > 60 (>60) 09/09/19 11:45 Est GFR (MDRD) Non-Af > 60 (>60) 09/09/19 11:45 Glucose 118 mg/dL (75-110) H 09/09/19 11:45 POC Glucose 115 mg/dL (70-110) H 09/12/19 06:22 Calcium 9.1 mg/dL (8.4-10.2) 09/09/19 11:45 Phosphorus 3.5 mg/dL (2.5-4.5) 08/22/19 07:17 Magnesium 1.7 mg/dL (1.6-2.3) 08/22/19 07:17 Total Bilirubin 0.5 mg/dL (0.2-1.3) 09/09/19 11:45 Direct Bilirubin 0.3 mg/dL (0.0-0.4) 09/09/19 11:45 Neonat Total Bilirubin Not Reportable 09/09/19 11:45 Neonat Direct Bilirubin Not Reportable 09/09/19 11:45 Neonat Indirect Bili Not Reportable 09/09/19 11:45 AST 22 U/L (14-36) 09/09/19 11:45 ALT 10 U/L (<35) 09/09/19 11:45 Alkaline Phosphatase 70 U/L (38-126) 09/09/19 11:45 Ammonia 9.8 umol/L (9-33) 08/19/19 04:15 Total Protein 6.2 g/dL (6.3-8.2) L 09/09/19 11:45 Albumin 2.9 g/dL (3.5-5.0) L 09/09/19 11:45 Carcinoembryonic Ag 27.2 ng/mL (<3.0) H 09/09/19 11:45 CA 15-3 Antigen 338.0 U/mL (0.0-25.0) H 09/09/19 11:45 CA 19-9 Antigen 23 U/mL (0-35) 09/09/19 11:45 CA 27-29 609.8 U/mL (0.0-38.6) H 09/09/19 11:45 Urine Color STRAW 08/29/19 22:25 Urine Appearance SLIGHTLY-CLOUDY 08/29/19 22:25 Urine pH 8.0 (5.0-9.0) 08/29/19 22:25 Ur Specific [place]oggon 1.008 08/29/19 22:25 Urine Protein NEGATIVE mg/dL (NEGATIVE) 08/29/19 22:25 Urine Glucose (UA) NEGATIVE mg/dL (NEGATIVE) 08/29/19 22:25 Urine Ketones NEGATIVE mg/dL (NEGATIVE) 08/29/19 22:25 Urine Blood NEGATIVE (NEGATIVE) 08/29/19 22:25 Urine Nitrite NEGATIVE (NEGATIVE) 08/29/19 22:25 Urine Bilirubin NEGATIVE (NEGATIVE) 08/29/19 22:25 Urine Urobilinogen NEGATIVE mg/dL (<2.0) 08/29/19 22:25 Ur Leukocyte Esterase TRACE (NEGATIVE) H 08/29/19 22:25 Urine WBC (Auto) 5 /HPF 08/29/19 22:25 Urine RBC (Auto) 3 /HPF 08/29/19 22:25 U Hyaline Cast (Auto) 3 /LPF 08/20/19 15:09 Urine Bacteria (Auto) TRACE /HPF 08/29/19 22:25 Squamous Epi Cells Auto 2 /HPF 08/29/19 22:25 Calcium Oxalate Cr Auto RARE /HPF 08/19/19 20:40 Urine Mucus (Auto) RARE /LPF 08/29/19 22:25 Urine Ascorbic Acid NEGATIVE (NEGATIVE) 08/29/19 22:25 Slides for Path Review Cancelled 08/18/19 06:20 Blood Type A POSITIVE 08/13/19 23:35 Antibody Screen NEGATIVE 08/13/19 23:35 Crossmatch See Detail 08/13/19 23:35 Impressions: Chest X-Ray 08/14/19 00:00 IMPRESSION: Chronic CHF. Chest X-Ray 08/16/19 00:00 IMPRESSION: Increasing vascular congestion and pleural effusions. Slight clearing in the parenchymal opacities. Chest X-Ray 08/17/19 00:00 IMPRESSION: Increasing opacities in the lungs. Stable effusions. Increasing vascular congestion. SUPPORT DEVICE(S) IN EXPECTED LOCATIONS. Carotid Doppler Study 08/19/19 00:00 IMPRESSION: Extensive atherosclerotic disease bilaterally. By the numbers, 50 to 69% stenosis in the left CCA and ICA. Chest X-Ray 08/20/19 00:00 IMPRESSION: Endotracheal tube has been repositioned and now lies just above the samara. No other change. Chest X-Ray 08/20/19 06:00 IMPRESSION: Stable appearance of the chest. Endotracheal tube remains in the right mainstem bronchus and should be withdrawn 3.5 cm. There is was noted on yesterday's exam as well. Venous Doppler Study 08/21/19 00:00 IMPRESSION: No right jugular lower pole upper extremity venous thrombosis Incompletely occlusive mixed echogenicity clot in the left internal jugular vein No flow is identified in the left arm cephalic vein which is diffusely small 3.8 x 3.6 x 3 cm soft tissue mass in the left supraclavicular region adjacent to the thrombosed IJ vein. This could represent an enlarged lymph node Chest X-Ray 08/21/19 06:00 IMPRESSION: Postextubation. Increase in pulmonary edema and pulmonary vascular congestion Small bilateral pleural effusions Chest CT 08/23/19 08:00 IMPRESSION: Upper mediastinal adenopathy with mass-effect on venous structures, left internal jugular vein is incompletely occluded with clot on Doppler exam 08/21/2019. Large right peritracheal lymph node in the upper mediastinum may have significant mass effect on the superior vena cava. Follow-up contrast CT is recommended Lung parenchyma abnormal, with probable alveolar and interstitial edema. Multifocal pneumonia versus pulmonary infarcts. Trace pleural effusions. Carotid Doppler Study 08/25/19 00:00 IMPRESSION: Complete occlusion of the right internal carotid artery with near complete occlusion of the carotid bulb. Greater than 70% stenosis of the left common carotid artery on the basis of mixed plaque. 50 to 69% occlusion of the left internal carotid artery on the basis of mixed plaque. Elevated left vertebral artery velocities. Chest/Abdomen CTA 08/25/19 00:00 IMPRESSION: Poor contrast enhancement of the proximal right common carotid artery. Findings could indicate thrombosis/stenosis. Findings discussed with attending physician, follow-up carotid Doppler will be performed shortly Malignant appearing mediastinal adenopathy Further collapse and consolidation of the bilateral lower lobes compared to 08/23/2019. Small pleural effusions are slightly increased compared to 08/23/2019 Guidance Fluoroscopy 08/25/19 00:00 IMPRESSION: Please see combined report for performance of procedure and radiologic supervision and interpretation. Interventional Vascular Procedure 08/25/19 00:00 IMPRESSION: SUCCESSFUL PLACEMENT OF A 5 FR DUAL LUMEN 27 CM PICC IN THE LEFT BASILIC VEIN. PICC Line Insertion 08/25/19 00:00 IMPRESSION: SUCCESSFUL PLACEMENT OF A 5 FR DUAL LUMEN 27 CM PICC IN THE LEFT BASILIC VEIN. Chest X-Ray 08/31/19 06:00 IMPRESSION: Bilateral pneumonia or asymmetric edema. No significant change. Lymph Node Biopsy Ultrasound 09/03/19 08:00 IMPRESSION: Successful ultrasound-guided biopsy of the heterogeneous left supraclavicular mass. Chest X-Ray 09/05/19 00:00 IMPRESSION: No change in bilateral multifocal airspace disease compared to 08/31/2019. Unchanged small bilateral pleural effusions. PICC line in good positioning Abdomen/Pelvis CT 09/09/19 00:00 IMPRESSION: 1. Subsegmental atelectasis in the lower lobes. There may be a mi nimal left pleural effusion. 2. There is considerable atherosclerosis in the abdomen. 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 There is considerable atherosclerosis in the SMA. 3. Diverticulosis coli with no evidence of acute inflammation. Possible constipation. Plan Health Concerns: End stage COPD and poor functional capacity. Plan of Treatment: Transfer to SNF for short term rehabilitation. Goals: Improve functional capacity to continue further evaluation and management of her metastatic adenocarcinoma. Time Spent: Greater than 30 Minutes Stroke Is this a Stroke Patient?: No Acute Heart Failure - Is this a Heart Failure Patient?: No
[2019-09-12] MEDS: DOCUSATE SODIUM 100 MG CAPSULE PO SCH (09:11)
[2019-09-12] MEDS: MULTIVITAMINS W-IRON TABLET, CHEWABLE PO SCH (09:11)
[2019-09-12] MEDS: POTASSIUM CHLORIDE 20 MEQ PACKET PO SCH (09:12)
[2019-09-12] MEDS: APIXABAN 5 MG TABLET PO SCH (09:29)
[2019-09-12] MEDS: CALCIUM CARBONATE 250 MG/VITAMIN D3 125 UNIT TABLET PO SCH (09:29)
[2019-09-12] MEDS: CITALOPRAM HYDROBROMIDE 20 MG TABLET PO SCH (09:30)
[2019-09-12] MEDS: METOPROLOL TARTRATE 25 MG TABLET PO SCH (09:30)
[2019-09-12] MEDS: FLUTICASONE/VILANTEROL 200-25 MCG/DOSE IH SCH (09:31)
[2019-09-12] MEDS: UMECLIDINIUM BROMIDE 62.5 MCG/DOSE IH SCH (09:31)
[2019-09-12] MEDS: NORMAL SALINE 10 ML SDV (SCHEDULED) IV SCH (09:33)
[2019-09-12] MEDS: CEFEPIME 1 GM/D5W RTU 1 GM/50 ML RTUPB IV SCH (09:34)
[2019-09-12 10:09] LABS: HEMOGLOBIN 8.4 g/dL (12.0-15.5); MEAN CORPUSCULAR HEMOGLOBIN 28.4 pg (27.0-33.4); MEAN CORPUSCULAR HGB CONC 31.2 g/dL (32.0-36.0); MEAN CORPUSCULAR VOLUME 91 fl (80-97); PLATELET COUNT 275 10^3/uL (150-450); RED BLOOD COUNT 2.97 10^6/uL (3.72-5.28); RED CELL DISTRIBUTION WIDTH 21.5 % (11.5-14.0); WHITE BLOOD COUNT 14.4 10^3/uL (4.0-10.5)
[2019-09-12] MEDS: VALSARTAN 40 MG TABLET PO SCH (12:30)
[2019-09-12 14:15] VITALS: BP 110/40
== END 2019-09-12 16:24 | DRG 207 ==
LOC: 3N 21:55 → ICU 08-17 16:32 → 4W 08-22 09:20 → 4N 08-29 17:30
PROVIDERS: ADMIT Internal Medicine Geriatric Medicine; ATTEND Anesthesiology
PROC: 30233P1 Transfusion of Nonautologous Frozen Red Cells into Peripheral Vein, Percutaneous Approach (ICD-10-PCS; 2019-08-14)
PROC: 5A09457 Assistance with Respiratory Ventilation, 24-96 Consecutive Hours, Continuous Positive Airway Pressure (ICD-10-PCS; 2019-08-16)
PROC: 5A1955Z Respiratory Ventilation, Greater than 96 Consecutive Hours (ICD-10-PCS; principal; 2019-08-17)
PROC: 0BH17EZ Insertion of Endotracheal Airway into Trachea, Via Natural or Artificial Opening (ICD-10-PCS; 2019-08-17)
PROC: 5A1955Z Respiratory Ventilation, Greater than 96 Consecutive Hours (ICD-10-PCS; 2019-08-21)
PROC: 02HV33Z Insertion of Infusion Device into Superior Vena Cava, Percutaneous Approach (ICD-10-PCS; 2019-08-25)
PROC: 07D63ZX Extraction of Left Axillary Lymphatic, Percutaneous Approach, Diagnostic (ICD-10-PCS; 2019-09-03)
PROC: 0DB78ZX Excision of Stomach, Pylorus, Via Natural or Artificial Opening Endoscopic, Diagnostic (ICD-10-PCS; 2019-09-09)
DX: J44.1 Chronic obstructive pulmonary disease with (acute) exacerbation (principal); J96.21 Acute and chronic respiratory failure with hypoxia; J96.22 Acute and chronic respiratory failure with hypercapnia; J14 Pneumonia due to Hemophilus influenzae; J13 Pneumonia due to Streptococcus pneumoniae; I50.32 Chronic diastolic (congestive) heart failure; I82.612 Acute embolism and thrombosis of superficial veins of left upper extremity; D68.4 Acquired coagulation factor deficiency; C85.90 Non-Hodgkin lymphoma, unspecified, unspecified site; C79.72 Secondary malignant neoplasm of left adrenal gland; C78.1 Secondary malignant neoplasm of mediastinum; C79.89 Secondary malignant neoplasm of other specified sites; I82.C12 Acute embolism and thrombosis of left internal jugular vein; N17.9 Acute kidney failure, unspecified; I48.11 Longstanding persistent atrial fibrillation; I11.0 Hypertensive heart disease with heart failure; E78.5 Hyperlipidemia, unspecified; I65.23 Occlusion and stenosis of bilateral carotid arteries; R59.0 Localized enlarged lymph nodes; R59.1 Generalized enlarged lymph nodes; D63.0 Anemia in neoplastic disease; B37.9 Candidiasis, unspecified; I25.10 Atherosclerotic heart disease of native coronary artery without angina pectoris; F10.21 Alcohol dependence, in remission; F32.9 Major depressive disorder, single episode, unspecified; J44.0 Chronic obstructive pulmonary disease with (acute) lower respiratory infection; B95.3 Streptococcus pneumoniae as the cause of diseases classified elsewhere; B96.89 Other specified bacterial agents as the cause of diseases classified elsewhere; K29.70 Gastritis, unspecified, without bleeding; F41.3 Other mixed anxiety disorders; T17.990A Other foreign object in respiratory tract, part unspecified in causing asphyxiation, initial encounter; X58.XXXA Exposure to other specified factors, initial encounter; R40.2433 Glasgow coma scale score 3-8, at hospital admission; T45.515A Adverse effect of anticoagulants, initial encounter; Z78.1 Physical restraint status; Z79.01 Long term (current) use of anticoagulants; Z79.899 Other long term (current) drug therapy; Z99.81 Dependence on supplemental oxygen; Z85.3 Personal history of malignant neoplasm of breast; Z88.6 Allergy status to analgesic agent; Z88.3 Allergy status to other anti-infective agents; Z91.030 Bee allergy status; Z91.038 Other insect allergy status; Z90.11 Acquired absence of right breast and nipple; Z87.891 Personal history of nicotine dependence
CPT/HCPCS: 31500; 36415; 36430; 36569; 36600; 38505; 43239; 71045; 71046; 71250; 71275; 74177; 76937; 77001; 80048; 80053; 81001; 82140; 82378; 82803; 82962; 83735; 84100; 85025; 85027; 85610; 85730; 86300; 86301; 86850; 86900; 86901; 86920; 87070; 87077; 87186; 87205; 88305; 88313; 88341; 88342; 93005; 93010; 93306; 93880; 93970; 94002; 94003; 94640; 94660; 94762; 94799; 99233; 99291; J0171; J0456; J0692; J1200; J1610; J1642; J1644; J1650; J2250; J2310; J2405; J2543; J2704; J3010; J3490; J7030; J7042; J7050; J7060; J7620; P9016

== ENCOUNTER → 2019-09-23 | Outpatient (CLI) | payer MEDICARE, OTHER ==
--- NOTE | 2019-09-23 12:51 | WOMENS IMAGING REPORT ---
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 Read with the assistance of CAD: .[employer] Version 9.2 LIMITATIONS: None. FINDINGS: RIGHT BREAST MASSES: No suspicious masses. CALCIFICATIONS: No new or suspicious calcifications. ARCHITECTURAL DISTORTION: None. ASYMMETRY: None noted. OTHER: Right breast skin thickening post radiation therapy. LEFT BREAST MASSES: No suspicious masses. CALCIFICATIONS: No new or suspicious calcifications. ARCHITECTURAL DISTORTION: None. ASYMMETRY: None noted. OTHER: No other significant finding. IMPRESSION: No mammographic/ tomosynthesis evidence for malignancy bilaterally. BREAST DENSITY: c. The breasts are heterogeneously dense, which may obscure small masses. BIRAD: ASSESSMENT: 2 Benign findings. RECOMMENDATION: RECOMMENDED FOLLOW UP: Please continue yearly bilateral screening SPECIFIC INTERVENTION/IMAGING/CONSULTATION RECOMMENDED:No additional intervention/ imaging/consultati on needed at this time. COMMUNICATION:The negative/benign results were communicated to the patient. COMMENT: The patient has been notified of the results by letter per MQSA requirements. Additional no tification policies are in place for contacting patient with suspicious or incomplete findings. Quality ID #[id number]: The [employer] recommends an annual screening mammogram for women aged 40 years or over. This facility utilizes a reminder system to ensure that all patients receive reminder letters, and/or direct phone calls for appointments. This includes reminders for routine scr eening mammograms, diagnostic mammograms, or other Breast Imaging Interventions when appropriate. Th is patient will be placed in the appropriate reminder system. TECHNICAL DOCUMENTATION: FINDING NUMBER: (1) ASSESSMENT: (1) JOB ID: [id number] [employer]- All Rights Reserved Reading location - IP/workstation name: [facility]
--- NOTE | 2019-09-24 15:02 | RADIOLOGY REPORT (SQ) ---
EXAM DESCRIPTION: PET CT SKULL/THIGH COMPLETED DATE/TIME: 09/23/2019 8:54 pm REASON FOR STUDY: (C25.9)MALIGNANT NEOPLASM OF PANCREAS, UNSPECIFIED C25.9 MALIGNANT NEOPLASM OF PA NCREAS, UNSPECIFIED N63.20 UNSPECIFIED LUMP IN THE LEFT BREAST, UNSPECIFIED QUAD N63.10 UNSPECIFIED LUMP IN THE RIGHT BREAST, UNSPECIFIED ROSA COMPARISON: CT abdomen pelvis 09/09/2019 CT chest 08/23/2019, 08/25/2019 CT pelvis 03/30/2019 RADIONUCLIDE AND DOSE: 9 mCi F18 FDG The route of agent administration: Intravenous FASTING BLOOD SUGAR: 154 mg/dl CONTRAST TYPE AND DOSE: No CT contrast given. TECHNIQUE: Blood glucose level was verified. Above dose of FDG was injected intravenously. 2-D seg mented attenuation correction images were obtained from the base of the skull to the midthighs. Nonc ontrast CT images were obtained for attenuation correction and fusion with emission images. CT image s were performed without oral or intravenous contrast and are not sensitive for parenchymal lesions. A series of overlapping emission PET images were obtained. Images reviewed and manipulated at [facility] work station by the radiologist. Images stored on PACS. LIMITATIONS: None. FINDINGS: HEAD AND NECK: For I will left supraclavicular 4 x 3 cm mass is present on axial image 52 (previously biopsied) with SUV of 14.8. Right supraclavicular 1.4 x 1 cm lymph node axial image 51 with SUV of 7.3. CHEST: Right paratracheal 3 x 2 cm lymph node axial image 56 with SUV of 7.0. Anterior mediastinal soft tissue mass 4 cm AP x 2.8 cm transverse axial image 65 with SUV 6.8. Sub- carinal 2 x 1.6 cm lymph node axial image 75 with SUV 4.9. Right hilum subcentimeter lymph node SUV 2.8. Left hilum subcentimeter lymph node SUV 3.6. ABDOMEN AND PELVIS: Subcentimeter lymph node left para- aortic/angelica of diaphragm SUV 3.7. Expected p hysiologic activity is present in the genitourinary system and bowel. PROXIMAL LOWER EXTREMITIES: No areas of abnormal metabolic activity in the soft tissues of the lower extremities. BONES: No abnormal metabolic activity in the visualized skeleton. ADDITIONAL CT FINDINGS: Heavy atherosclerotic arterial vascular calcification throughout the body. C ardiomegaly. Colonic diverticulosis. There is further clearing of the right-sided pneumonia compare d to CT chest 08/25/2019. Resolved left lower lobe consolidation compared to 08/26/2019. OTHER: Liver background activity 1.5 SUV. Blood pool background activity 1.2 SUV IMPRESSION: Metabolically active bilateral supraclavicular and mediastinal lymph nodes. No PET-CT activity worrisome for primary pancreatic mass. TECHNICAL DOCUMENTATION: JOB ID: [id number] [employer]- All Rights Reserved Reading location - IP/workstation name: [email or web address]
== END ==
LOC: WI 12:00
PROVIDERS: ATTEND Internal Medicine
DX: C25.9 Malignant neoplasm of pancreas, unspecified (principal); C50.411 Malignant neoplasm of upper-outer quadrant of right female breast
CPT/HCPCS: 78815; 77066; A9552; G0279; 77062

== ENCOUNTER 2019-10-01 12:52 | Inpatient (IN) | payer MEDICARE, OTHER ==
[2019-10-01 13:39] LABS: HEMATOCRIT 31.2 % (36.0-47.0); HEMOGLOBIN 9.4 g/dL (12.0-15.5); MEAN CORPUSCULAR HEMOGLOBIN 29.1 pg (27.0-33.4); MEAN CORPUSCULAR HGB CONC 30.1 g/dL (32.0-36.0); PLATELET COUNT 178 10^3/uL (150-450); RED BLOOD COUNT 3.22 10^6/uL (3.72-5.28); WHITE BLOOD COUNT 13.5 10^3/uL (4.0-10.5)
[2019-10-01] MEDS ORDERED: MIDAZOLAM HCL 50 MG/100 ML RTUINJ IV PRN (13:43)
[2019-10-01 13:44] LABS: MEAN CORPUSCULAR VOLUME 97 fl (80-97)
--- NOTE | 2019-10-01 13:49 | ER Document Report ---
Entered by DANIEL WILEY SCRIBE 10/01/19 1256 Acting as scribe for:LAUREN HALL IV, MD ED Resuscitation - General Chief Complaint: Respiratory Distress Stated Complaint: RESPIRATORY DISTRESS Primary Care Provider: FLORENTIN ALCANTAR MD [ACTIVE STAFF] - Follow up as needed Mode of Arrival: Medic Information source: Emergency Med Personnel, [facility] Records Cannot obtain history due to: Intubated, Unstable vital signs Notes: This 74 year old female patient presents to the emergency department today intubated by EMS for respiratory distress. EMS reports they were called for altered mental status, family on scene stated that they could not get the patient's pulse ox out of the 70s. Patient had a respiratory rate between 30s and 40s, a blood pressure of 90/40, temperature 99.5 rectally, a lactate of 2.5, had a BGL of 108. Intervention by EMS: 75 mg of ketamine, 75 mg rocuronium, 500 mL normal saline, intubation, deep endotracheal suction, and levophed. Patient has a history of breast cancer in 2004 and was recently diagnosed with pancreatic cancer in August 2019, remains a full code. TRAVEL OUTSIDE OF THE [place] IN LAST 30 DAYS: No - Related Data Allergies/Adverse Reactions: bee pollen [Bee Pollen] Allergy (Unknown, Verified 01/15/18 08:05) moxifloxacin [From Avelox] Allergy (Verified 08/13/19 23:24) propoxyphene [From Darvocet-N] Allergy (Verified 01/15/18 08:05) venom-wasp [Wasp Venom] Allergy (Verified 01/15/18 08:05) Past Medical History - General Information source: Emergency Med Personnel, [facility] Records Cannot obtain history due to: Intubated, Unstable vital signs - Social History Smoking Status: Former Smoker Cigarette use (# per day): No Frequency of alcohol use: None Drug Abuse: None Lives with: [facility] Family History: COPD, Hypertension - Past Medical History Cardiac Medical History: Reports: Hx Atrial Fibrillation, Hx Congestive Heart Failure, Hx Coronary Artery Disease, Hx Hypercholesterolemia, Hx Hypertension Pulmonary Medical History: Reports: Hx Bronchitis, Hx COPD - stage 3, Hx Pneumonia Malignancy Medical History: Reports: Hx Breast Cancer - right, over 10 years ag o, Hx Pancreatic Cancer GI Medical History: Reports: Hx Ulcer Musculoskeletal Medical History: Reports Hx Arthritis, Reports Hx Musculoskeletal Deformity, Reports Hx Musculoskeletal Trauma Psychiatric Medical History: Reports: Hx Anxiety, Hx Depression Traumatic Medical History: Reports: Hx Fractures Past Surgical History: Reports: Hx Breast Surgery - lumpectomy, needle biopsy, Hx Mastectomy - Right, 2005 - Immunizations Immunizations up to date: Yes Hx Diphtheria, Pertussis, Tetanus Vaccination: Yes Review of Systems - Review of Systems -: Yes ROS unobtainable due to patient's medical condition Physical Exam - Vital signs Vitals: Resp 14 10/01/19 12:58 - General General appearance: Unresponsive In distress: Severe - HEENT Head: Normocephalic, Atraumatic Eyes: Normal - Respiratory Respiratory status: Other - Intubated by EMS prior to arrival. Breath sounds bilaterally. - Cardiovascular Rhythm: Tachycardia Heart sounds: Normal auscultation Pulses: Normal: Carotid, Decreased: Radial - Abdominal Inspection: Normal Distension: No distension - Extremities General upper extremity: Normal inspection. No: Edema General lower extremity: Normal inspection. No: Edema - Neurological Neuro grossly intact: No - Intubated. Unresponsive. [place] Coma Scale Eye Opening: None [place] Coma Scale Verbal: None [place] Coma Scale Motor: None [place] Coma Scale Total: 3 - Skin Skin Temperature: Warm Skin Moisture: Dry Skin Color: Normal Course - Vital Signs Vital signs: Temp Pulse Resp BP Pulse Ox 14 136/66 H 100 10/01/19 15:21 10/01/19 15:21 10/01/19 14:30 - Laboratory Result Diagrams: 10/01/19 13:00 10/01/19 13:00 Laboratory results interpreted by me: 10/01/19 10/01/19 10/01/19 13:00 13:00 13:00 WBC 13.5 H RBC 3.22 L Hgb 9.4 L Hct 31.2 L MCHC 30.1 L RDW 22.0 H Seg Neuts % (Manual) 89 H Band Neutrophils % 10 H Lymphocytes % (Manual) 1 L Monocytes % (Manual) 0 L Abs Neuts (Manual) 13.4 H Abs Lymphs (Manual) 0.1 L Abs Monocytes (Manual) 0.0 L Carbonic Acid ABG pH ABG pCO2 ABG pO2 ABG HCO3 ABG Total CO2 ABG O2 Saturation Sodium 148.3 H BUN 54 H Creatinine 1.51 H Est GFR ( Amer) 41 L Est GFR (MDRD) Non-Af 34 L NT-Pro-B Natriuret Pep 25938 H Albumin 2.9 L Urine Protein Urine Ascorbic Acid 10/01/19 10/01/19 13:00 13:25 WBC RBC Hgb Hct MCHC RDW Seg Neuts % (Manual) Band Neutrophils % Lymphocytes % (Manual) Monocytes % (Manual) Abs Neuts (Manual) Abs Lymphs (Manual) Abs Monocytes (Manual) Carbonic Acid 2.08 H ABG pH 7.21 L ABG pCO2 69.1 H* ABG pO2 406.0 H ABG HCO3 27.1 H ABG Total CO2 29.3 H ABG O2 Saturation 99.7 H Sodium BUN Creatinine Est GFR ( Amer) Est GFR (MDRD) Non-Af NT-Pro-B Natriuret Pep Albumin Urine Protein 100 H Urine Ascorbic Acid 40 H - Diagnostic Test Radiology reviewed: Reports reviewed - EKG Interpretation by Me Additional EKG results interpreted by me: 10/01/19 15:46 EKG performed on 10/01/2019 at 1311 hrs. was interpreted by this MD. Impression atrial fibrillation is present, heart rate is 122, axis is normal, QRS complexes appear narrow ST segments are nonspecific. - Consults dr. darling eagle Time consulted: 15:47 Reason for consultation: 10/01/19 15:47 respiratory failure, intubated Consulted provider: will come to ER Discharge - Discharge Clinical Impression: Respiratory failure with hypercapnia Qualifiers: Chronicity: unspecified Qualified Code(s): J96.92 - Respiratory failure, unspecified with hypercapnia Condition: Critical Disposition: ADMITTED INPATIENT Admitting Provider: dr. eagle, corn press operator Unit Admitted: ICU Referrals: FLORENTIN ALCANTAR MD [ACTIVE STAFF] - Follow up as needed I personally performed the services described in the documentation, reviewed and edited the documentation which was dictated to the scribe in my presence, and it accurately records my words and actions.
[2019-10-01 13:51] LABS: ARTERIAL BLOOD BASE EXCESS -2.4 mmol/L; ARTERIAL BLOOD H2CO3 2.08 mmol/L (1.05-1.35); ARTERIAL BLOOD HCO3 27.1 mmol/L (20-24); ARTERIAL BLOOD O2 SATURATION 99.7 % (94-98); ARTERIAL BLOOD PH 7.21 (7.35-7.45); ARTERIAL BLOOD TOTAL CO2 29.3 mmol/L (21-25)
[2019-10-01 13:54] LABS: ARTERIAL BLOOD FIO2 100%
[2019-10-01 13:56] LABS: ARTERIAL BLOOD PCO2 69.1 mmHg (35-45)
[2019-10-01 13:58] LABS: ALBUMIN 2.9 g/dL (3.5-5.0); ALKALINE PHOSPHATASE 69 U/L (38-126); ANION GAP 12 (5-19); ASPARTATE AMINO TRANSFERASE 26 U/L (14-36); BILIRUBIN,DIRECT 0.2 mg/dL (0.0-0.4); BILIRUBIN,TOTAL 0.3 mg/dL (0.2-1.3); BLOOD UREA NITROGEN 54 mg/dL (7-20); CALCIUM 9.6 mg/dL (8.4-10.2); CARBON DIOXIDE 29 mmol/L (22-30); CHLORIDE 107 mmol/L (98-107); GLUCOSE 104 mg/dL (75-110); POTASSIUM 3.9 mmol/L (3.6-5.0); TOTAL PROTEIN 6.3 g/dL (6.3-8.2)
--- NOTE | 2019-10-01 14:01 | RADIOLOGY REPORT (SQ) ---
EXAM DESCRIPTION: CHEST SINGLE VIEW COMPLETED DATE/TIME: 10/01/2019 1:47 pm REASON FOR STUDY: respiratory failure, intubated COMPARISON: 09/05/2019 EXAM PARAMETERS: NUMBER OF VIEWS: One view. TECHNIQUE: Single frontal radiographic view of the chest acquired. RADIATION DOSE: NA LIMITATIONS: None. FINDINGS: Interval improvement in diffuse bilateral heterogeneous and interstitial airspace opacity. Persistent small bilateral pleural effusions. No new airspace opacity. Cardiomegaly. Interval pl acement of endotracheal tube, tip projecting below the thoracic inlet. Esophagogastric tube with tip and side-port below diaphragm. Left upper extremity PICC. IMPRESSION: Interval improvement in diffuse bilateral heterogeneous and interstitial airspace opacit y. Persistent small bilateral pleural effusions. No new airspace opacity. Cardiomegaly. Interval placement of endotracheal tube, tip projecting below the thoracic inlet. Esophagogastric tube with ti p and side-port below diaphragm. Left upper extremity PICC. TECHNICAL DOCUMENTATION: JOB ID: [id number] PWA- All Rights Reserved Reading location - IP/workstation name: [email or web address]
[2019-10-01 14:13] LABS: APPEARANCE,URINE CLOUDY; BILIRUBIN,URINE NEGATIVE (NEGATIVE); GLUCOSE, URINE NEGATIVE (NEGATIVE); KETONES,URINE NEGATIVE (NEGATIVE); PROTEIN,URINE 100 mg/dL (NEGATIVE); URINE SPECIFIC GRAVITY 1.024; UROBILINOGEN,URINE NEGATIVE mg/dL (<2.0)
[2019-10-01 14:15] LABS: TROPONIN I 0.049 ng/mL
[2019-10-01] MEDS ORDERED: NORMAL SALINE 1000 ML 1,000 ML IV PRN ×3 (14:17→14:31)
[2019-10-01 14:25] LABS: COLOR,URINE YELLOW
[2019-10-01 14:30] LABS: ABSOLUTE LYMPHOCYTES# (MANUAL) 0.1 10^3/uL (0.5-4.7); BAND NEUTROPHILS % (MANUAL) 10 % (3-5); BASOPHILS % (MANUAL) 0 % (0-2); EOSINOPHILS % (MANUAL) 0 % (0-6); LYMPHOCYTES % (MANUAL) 1 % (13-45); MONOCYTES % (MANUAL) 0 % (3-13); SEGMENTED NEUTROPHILS % (MAN) 89 % (42-78); TOTAL CELLS COUNTED 100; TOXIC GRANULATION 1+
[2019-10-01 14:31] LABS: ANISOCYTOSIS 3+; OVALOCYTES 1+; PLATELET COMMENT ADEQUATE; POIKILOCYTOSIS 1+; TEAR DROP CELLS SLIGHT
[2019-10-01] MEDS ORDERED: IPRATROPIUM/ALBUTEROL 0.5-2.5 MG/3 ML AMPUL NEB PRN (15:49)
[2019-10-01] MEDS ORDERED: PHARMACY COMMUNICATION ORDER MC NR (16:00)
[2019-10-01] MEDS ORDERED: DEXTROSE 50%-WATER 25 GM/50 ML DISP.SYRIN IV PRN ×2 (16:20)
[2019-10-01] MEDS ORDERED: DEXTROSE 40% GEL 15 GM TUBE PO PRN ×2 (16:20)
[2019-10-01] MEDS ORDERED: GLUCAGON,HUMAN RECOMB 1 MG INJ IM PRN (16:20)
[2019-10-01] MEDS ORDERED: ONDANSETRON HCL INJ/PF 4 MG/2 ML SDV IV PRN (16:21)
[2019-10-01] MEDS ORDERED: ACETAMINOPHEN 325 MG TABLET PO PRN (16:27)
[2019-10-01] MEDS: RINGERS SOLUTION,LACTATED 1,000 ML IV PRN (16:33)
--- NOTE | 2019-10-01 16:50 | CRITICAL CARE ADMISSION REPORT ---
HPI Date:: 10/01/19 Time:: 16:30 Reason for ICU Reason:: acute respiratory failure, metastatic cancer HPI: Pt is a 74 yo woman with metastatic cancer of unknown primary, COPD, afib, recent PNA, severe protein calorie malnutrition, who was recently disharged from the hospital to a senior care. Family reports pt has been more lethargic and more short of breath for the past several days. Today, EMS was called to the senior care for respiratory distress. Pt was intubated in the field and brought to the ED. Upon my assessment of the pt in the ED, she is intubated and sedated. She is in afib with RVR with a pulse in the 130s. Her SBP is in the 130s. Her family is at the bedside. They are optimistic that the patient will survive this and want her to be a full code. - Diagnosis/Plan (1) Acute and chronic respiratory failure ([id number]) Qualifiers: Respiratory failure complication: hypercapnia Qualified Code(s): J96.22 - Acute and chronic respiratory failure with hypercapnia Is this a current diagnosis for this admission?: Yes (2) COPD (chronic obstructive pulmonary disease) Qualifiers: COPD type: unspecified COPD Qualified Code(s): J44.9 - Chronic obstructive pulmonary disease, unspecified Is this a current diagnosis for this admission?: Yes (3) KIAN (acute kidney injury) Is this a current diagnosis for this admission?: Yes (4) Atrial fibrillation Qualifiers: Atrial fibrillation type: longstanding persistent Qualified Code(s): I48.11 - Longstanding persistent atrial fibrillation Is this a current diagnosis for this admission?: Yes (5) Metastatic adenocarcinoma of unknown origin Is this a current diagnosis for this admission?: Yes (6) Multifocal pneumonia Is this a current diagnosis for this admission?: Yes (7) Sepsis Qualifiers: Sepsis type: sepsis due to unspecified organism Qualified Code(s): A41.9 - Sepsis, unspecified organism (8) Protein-calorie malnutrition, severe Is this a current diagnosis for this admission?: Yes Past Medical History Cardiac Medical History: Reports: Atrial Fibrillation, Congestive Heart Failure, Coronary Artery Disease, Hyperlipidema, Hypertension, Other - metastatic adenocarcinoma of unknown primary, VTE, left IJ thrombosis Pulmonary Medical History: Reports: Bronchitis, Chronic Obstructive Pulmonary Disease (COPD) - stage 3, Pneumonia, Respiratory Failure Neurological Medical History: Denies: Seizures Malignancy Medical History: Reports: Breast Cancer - right, over 10 years ago, Other - metastatic adenocarcinoma of unknown primary Musculoskeltal Medical History: Reports: Arthritis Psychiatric Medical History: Reports: Depression Past Surgical History Past Surgical History: Reports: Mastectomy - Right, 2004, Other - She remembers having colonoscopy at some point in time Social/Family History - Social History Lives with: Senior Care Smoking Status: Former Smoker Frequency of Alcohol Use: None Hx Recreational Drug Use: No Drugs: None Hx Prescription Drug Abuse: No - Medication/Allergies Home Medications: Acetazolamide [Diamox Sequel 500 mg] 500 mg PO DAILY 07/01/18 Albuterol Sulfate [Proair HFA Inhalation Aerosol 8.5 gm MDI] 2 puff IH Q4HP PRN 07/01/18 Budesonide/Formoterol Fumarate [Symbicort HFA 160-4.5 mcg Inhaler 6 gm] 2 puff IH Q12 07/01/18 Calcium Carbonate/Vitamin D3 [Oyster Shell 500-Vit D3 200 Tb] 1 tab PO DAILY 07/01/18 Citalopram Hydrobromide [Celexa 20 mg Tablet] 20 mg PO DAILY 07/01/18 Diltiazem HCl [Diltiazem 24Hr Cd] 120 mg PO DAILY 07/01/18 Melatonin [Melatonin 3 mg Tablet] 3 mg PO QHS 07/01/18 Metoprolol Succinate [Toprol Xl] 25 mg PO DAILY 07/01/18 Multivitamin [Multiple Vitamins] 1 tab PO DAILY 07/01/18 Pantoprazole Sodium [Protonix] 40 mg PO DAILY 07/01/18 Tiotropium [place] [Spiriva Handihaler 18 mcg/dose (30 Dose)] 1 cap IH DAILY 07/01/18 Valsartan [Diovan 40 mg Tablet] 40 mg PO DAILY 07/01/18 Furosemide [Lasix 20 mg Tablet] 20 mg PO DAILY #30 tablet 11/14/18 Atorvastatin Calcium [Lipitor 40 mg Tablet] 40 mg PO QHS 11/20/18 Latanoprost [Xalatan 0.005% Oph Soln 2.5 ml] 1 drop OU QHS 08/14/19 Venlafaxine HCl [Effexor 75 mg Tablet] 75 mg PO DAILY 08/14/19 Albuterol Sulfate [Ventolin 0.083% Neb 2.5 mg/3 mL Ampul] 2.5 mg NEB RTQ4 vial. neb 09/12/19 Apixaban [Eliquis 5 mg Tablet] 5 mg PO BID #0 tablet 09/12/19 Heparin Sodium,Porcine [Heparin Flush 10 Unit/ml 5 ml Disp.syrg] 30 unit IV .AFTER EACH USE PRN disp.syrin 09/12/19 Heparin Sodium,Porcine [Heparin Flush 10 Unit/ml 5 ml Disp.syrg] 30 unit IV Q12 disp.syrin 09/12/19 Oxycodone HCl/Acetaminophen [Oxycodon-Acetaminophen 7.5-325] 1 tab PO Q8HP PRN #60 09/12/19 Potassium Chloride [Potassium Chloride 20 Meq Packet] 40 meq PO DAILY packet 09/12/19 Allergies/Adverse Reactions: bee pollen [Bee Pollen] Allergy (Unknown, Verified 01/15/18 08:05) moxifloxacin [From Avelox] Allergy (Verified 08/13/19 23:24) propoxyphene [From Darvocet-N] Allergy (Verified 01/15/18 08:05) venom-wasp [Wasp Venom] Allergy (Verified 01/15/18 08:05) Physical Exam Vital Signs: Temp Pulse Resp BP Pulse Ox 14 134/88 H 99 10/01/19 15:56 10/01/19 15:56 10/01/19 15:56 Intake & Output 09/30/19 10/01/19 10/02/19 06:59 06:59 06:59 Intake Total 1215 Balance 1215 Weight 33.5 kg Weight/Height Weight 33.5 kg General appearance: PRESENT: no acute distress, thin, other - frail, elderly, cachectic Head exam: PRESENT: atraumatic, normocephalic Respiratory exam: PRESENT: rhonchi, unlabored Cardiovascular exam: PRESENT: irregular rhythm, tachycardia GI/Abdominal exam: PRESENT: other - non-tender, non-distended Gentrourinary exam: PRESENT: indwelling catheter Extremities exam: PRESENT: other - no edema Laboratory/Radiographs Laboratory Results: 10/01/19 13:00 10/01/19 13:00 10/01/19 10/01/19 10/01/19 13:00 13:00 13:00 WBC 13.5 H RBC 3.22 L Hgb 9.4 L Hct 31.2 L MCV 97 D MCH 29.1 MCHC 30.1 L RDW 22.0 H Plt Count 178 Seg Neutrophils % Not Reportable Carbonic Acid HCO3/H2CO3 Ratio ABG pH ABG pCO2 ABG pO2 ABG HCO3 ABG O2 Saturation ABG Base Excess FiO2 Sodium 148.3 H Potassium 3.9 Chloride 107 Carbon Dioxide 29 Anion Gap 12 BUN 54 H Creatinine 1.51 H Est GFR ( Amer) 41 L Glucose 104 Lactic Acid 0.8 Calcium 9.6 Total Bilirubin 0.3 AST 26 Alkaline Phosphatase 69 Total Protein 6.3 Albumin 2.9 L Urine Color Urine Appearance Urine pH Ur Specific [place] Urine Protein Urine Glucose (UA) Urine Ketones Urine Blood Urine RBC (Auto) 10/01/19 10/01/19 13:00 13:25 WBC RBC Hgb Hct MCV MCH MCHC RDW Plt Count Seg Neutrophils % Carbonic Acid 2.08 H HCO3/H2CO3 Ratio 13:1 ABG pH 7.21 L ABG pCO2 69.1 H* ABG pO2 406.0 H ABG HCO3 27.1 H ABG O2 Saturation 99.7 H ABG Base Excess -2.4 FiO2 100% Sodium Potassium Chloride Carbon Dioxide Anion Gap BUN Creatinine Est GFR ( Amer) Glucose Lactic Acid Calcium Total Bilirubin AST Alkaline Phosphatase Total Protein Albumin Urine Color YELLOW Urine Appearance CLOUDY Urine pH 5.0 Ur Specific [place] 1.024 Urine Protein 100 H Urine Glucose (UA) NEGATIVE Urine Ketones NEGATIVE Urine Blood NEGATIVE Urine RBC (Auto) 2 10/01/19 13:00 Troponin I 0.049 NT-Pro-B Natriuret Pep 23398 H Impressions: Chest X-Ray 10/01/19 13:12 IMPRESSION: Interval improvement in diffuse bilateral heterogeneous and interstitial airspace opacity. Persistent small bilateral pleural effusions. No new airspace opacity. Cardiomegaly. Interval placement of endotracheal tube, tip projecting below the thoracic inlet. Esophagogastric tube with tip and side-port below diaphragm. Left upper extremity PICC. All labs, radiographs, diagnostic studies and EKGs were personally reviewed: Yes Critical Time Critical Time (minutes): 50 -: The care of a critically ill patient is dynamic. This note represents a static moment in the admission process. Orders and treatments may be given simultaneously and urgently, and time is not artists' booking representative of the treatment pr ocess. This patient requires Critical Care secondary to life threatening organ or limb dysfunction. Without Critical Care services, the patient is at risk for increased mortality and morbidity. Provider Note Provider Note: Assessment: Critically ill 74 yo woman with acute on chronic respiratory failure, metastatic cancer of unknown primary, HCAP, sepsis, COPD, KIAN, afib with RVR, VTE disease, severe protein-calorie malnutrition Plan: 1. Respiratory: acute on chronic respiratory failure. Pt was intubated by EMS. Vent settings adjusted 2. Pulmonary: HCAP. COPD. Vanc and cefepime. Duonebs and steroids 3. CV:afib with RVR. BP acceptable. Will give IV lopressor. Continue IVF. 4. Renal: KIAN. IVF. Renally dose meds 5. Onc: metastatic cancer with unknown primary. Will consult Dr. Logan 6. Heme: afib, VTE. Continue eliquis. adjust dose for [place] 7. Nutrition: severe protein calorie malnutrition. Will consult nutrition 8. ID: sepsis, HCAP. Vanc and cefepime. Cultures pending. Check for influenza 9. Endocrine: accuchecks, SSI 10.Prophylaxis: scds. No pharmacologic DVT prophylaxis needed b/c pt on eliquis 11. Ethics: terminal prognosis. Family wants pt to be full code. Critical Care time=50 min, excluding procedures
[2019-10-01] MEDS ORDERED: VANCOMYCIN HCL 0 MG in DEXTROSE 5%-WATER 250 ML IV NR (17:00)
[2019-10-01] MEDS ORDERED: CEFEPIME 1 GM/D5W RTU 1 GM/50 ML RTUPB IV SCH (18:00)
[2019-10-01] MEDS ORDERED: NORMAL SALINE INJ/PF 0.9% 10 ML SDV IV PRN (18:17)
[2019-10-01] MEDS ORDERED: AMIODARONE HCL 150 MG in DEXTROSE 5%-WATER 100 ML IV ONE (18:26)
[2019-10-01] MEDS ORDERED: RINGERS SOLUTION,LACTATED 1,000 ML IV ONE (18:30)
[2019-10-01] MEDS ORDERED: METOPROLOL TARTRATE PF/INJ 5 MG/5 ML SDV IV ONE (18:30)
[2019-10-01] MEDS ORDERED: VANCOMYCIN HCL INJ 1000 MG VIAL IV PRN (18:34)
[2019-10-01] MEDS ORDERED: IPRATROPIUM/ALBUTEROL 0.5-2.5 MG/3 ML AMPUL NEB ONE (18:36)
[2019-10-01] MEDS ORDERED: AMIODARONE HCL INJ 150 MG/3 ML VIAL IV PRN ×2 (18:46→18:47)
[2019-10-01] MEDS: METHYLPREDNISOLONE INJ 125 MG/2 ML SDV IV SCH ×2 (19:32→23:49)
[2019-10-01] MEDS ORDERED: PHENYLEPHRINE HCL INJ/PF 10 MG/1 ML SDV ONE ×2 (19:42→23:55)
[2019-10-01] MEDS ORDERED: VANCOMYCIN HCL 750 MG in DEXTROSE 5%-WATER 250 ML IV ONE (20:00)
[2019-10-01] MEDS: DEXTROSE 5%-WATER 250 ML with PHENYLEPHRINE HCL 40 MG IV PRN ×4 (20:04→23:56)
--- NOTE | 2019-10-01 20:05 | EKG REPORT ---
SEVERITY:- ABNORMAL ECG - ATRIAL FIBRILLATION, V-RATE 82-170 BORDERLINE T ABNORMALITIES, INFERIOR LEADS LATERAL LEADS ARE ALSO INVOLVED : Confirmed by: Araceli Magaña MD 01-Oct-2019 20:03:48
[2019-10-01] MEDS: INSULIN REG, HUMAN 100 UNIT/ML 3 ML VIAL (PYX) SUBCUT SCH ×2 (20:11→23:48)
[2019-10-01] MEDS: IPRATROPIUM/ALBUTEROL 0.5-2.5 MG/3 ML AMPUL NEB SCH (20:53)
[2019-10-01 21:30] LABS: ARTERIAL BLOOD BASE EXCESS -3.1 mmol/L; ARTERIAL BLOOD H2CO3 1.99 mmol/L (1.05-1.35); ARTERIAL BLOOD HCO3 25.6 mmol/L (20-24); ARTERIAL BLOOD O2 SATURATION 95.5 % (94-98); ARTERIAL BLOOD PH 7.21 (7.35-7.45); ARTERIAL BLOOD PO2 95.1 mmHg (80-100); ARTERIAL BLOOD TOTAL CO2 27.7 mmol/L (21-25)
[2019-10-01 21:31] LABS: ARTERIAL BLOOD FIO2 60%
--- NOTE | 2019-10-01 21:35 | ADVANCED CARE ---
Attendance: Multiple family members including three children and two sisters. Resuscitation Status: Full Code Discussion: This BATHING SUIT MAKER in to family waiting room to update large family group on patients current condition and reason for wait to go back to pt room to visit. Opened the discussion regarding patients wishes about end of life care with family. Pts daughter stated that she had spoken with her mother after a "choking" incident while pt was admitted on the 3rd floor of this hospital and she had said she would want "them to try once and if it didn't work to let her go." Many of the family members agreed that the process of chest compressions would be traumatic and their concerns with broken bones in her small frame wound cause more damage and pain to the patient. This concern was validated to the family and they were informed that much of the time, bones are dislocated or broken in small or lager people no matter the size. We also discussed there is an increased chance of mortality if she were to require chest compressions due to her several other co- morbidities. The family was able to have an open discussion and at this time would like to wait for additional family members to arrive before making a decision. They would like to see if there is any improvement in the early hours of her admission and would like to continue the conversation as pt condition changes. Family states she does not have a designated HCP. Time Spent: 30min
[2019-10-01] MEDS: CEFEPIME 1 GM/D5W RTU 1 GM/50 ML RTUPB IV SCH (21:57)
[2019-10-01] MEDS ORDERED: APIXABAN 2.5 MG TABLET PO SCH (22:00)
[2019-10-01] MEDS: NORMAL SALINE INJ/PF 0.9% 10 ML SDV IV SCH (22:02)
[2019-10-02] MEDS: IPRATROPIUM/ALBUTEROL 0.5-2.5 MG/3 ML AMPUL NEB SCH ×6 (00:22→20:55)
[2019-10-02 04:32] LABS: HEMOGLOBIN 9.7 g/dL (12.0-15.5); MEAN CORPUSCULAR HEMOGLOBIN 29.4 pg (27.0-33.4); MEAN CORPUSCULAR HGB CONC 30.3 g/dL (32.0-36.0); MEAN CORPUSCULAR VOLUME 97 fl (80-97); PLATELET COUNT 166 10^3/uL (150-450); RED BLOOD COUNT 3.31 10^6/uL (3.72-5.28); RED CELL DISTRIBUTION WIDTH 21.6 % (11.5-14.0); WHITE BLOOD COUNT 19.2 10^3/uL (4.0-10.5)
[2019-10-02 04:38] LABS: PROTHROMBIN TIME 22.1 SEC (11.4-15.4)
[2019-10-02 04:53] LABS: ALBUMIN 2.8 g/dL (3.5-5.0); ALKALINE PHOSPHATASE 105 U/L (38-126); ANION GAP 10 (5-19); ASPARTATE AMINO TRANSFERASE 51 U/L (14-36); BILIRUBIN,DIRECT 0.2 mg/dL (0.0-0.4); BILIRUBIN,TOTAL 0.4 mg/dL (0.2-1.3); BLOOD UREA NITROGEN 43 mg/dL (7-20); CARBON DIOXIDE 24 mmol/L (22-30); CHLORIDE 106 mmol/L (98-107); GLUCOSE 183 mg/dL (75-110); POTASSIUM 4.8 mmol/L (3.6-5.0); TOTAL PROTEIN 6.1 g/dL (6.3-8.2)
[2019-10-02] MEDS: METHYLPREDNISOLONE INJ 125 MG/2 ML SDV IV SCH ×4 (06:08→23:24)
[2019-10-02] MEDS: INSULIN REG, HUMAN 100 UNIT/ML 3 ML VIAL (PYX) SUBCUT SCH ×4 (06:14→23:23)
[2019-10-02] MEDS ORDERED: RINGERS SOLUTION,LACTATED 1,000 ML IV ONE ×2 (07:46→14:17)
--- NOTE | 2019-10-02 07:54 | PDOC CONSULTATION ---
Consultation Consult Date: 10/02/19 Attending physician:: LINDA PACHECO Provider Consulted: FLORENTIN ALCANTAR Consult reason:: Patient with known stage IV breast cancer, recent diagnosis here with respiratory failure History of Present Illness Admission Date/PCP: 10/01/19 16:49 АНДРЕЙ JIMENEZALYSSAHOMER Patient complains of: Increasing shortness of breath, confusion History of Present Illness: JUNAID VILCHIS is a 74 year old female recently diagnosed with stage IV breast cancer, she had a prolonged admission just about 2 to 3 weeks ago, she has diffuse adenopathy in the abdomen and chest, supraclavicular region, ultimately had a left supraclavicular biopsy which indicated poorly differentiated carcinoma, I sent breast cancer tumor markers which were highly elevated, further history revealed that 5 to 10 years ago she had a mastectomy for a breast cancer, but never had any adjuvant therapy. We could not obtain any more history from that episode. Ultimately though, pathology agreed that it could be consistent with a breast primary, and we sent receptors and it is ER positive, HER-2 negative. She saw us last week and although she was not walking much she was at least able to sit up in a chair and interact. Therefore, we decided on initiating oral endocrine therapy/antiestrogen therapy, with Arimidex. Apparently at the alf her family noted that she was becoming less responsive and increasingly short of breath, she was intubated and then brought to the hospital and is currently on ventilatory support with pressor support. Past Medical History Cardiac Medical History: Reports: Atrial Fibrillation, Congestive Heart Failure, Coronary Artery Disease, Hyperlipidema, Hypertension, Other - metastatic adenocarcinoma of unknown primary, VTE, left IJ thrombosis Pulmonary Medical History: Reports: Bronchitis, Chronic Obstructive Pulmonary Disease (COPD) - stage 3, Pneumonia, Respiratory Failure Neurological Medical History: Denies: Seizures Malignancy Medical History: Reports: Breast Cancer - Stage IV breast cancer Musculoskeltal Medical History: Reports: Arthritis Psychiatric Medical History: Reports: Depression Past Surgical History Past Surgical History: Reports: Mastectomy - Right, 2004, Other - She remembers having colonoscopy at some point in time Social History Information Source: [facility] Records Lives with: Residential Smoking Status: Former Smoker Frequency of Alcohol Use: None Hx Recreational Drug Use: No Drugs: None Hx Prescription Drug Abuse: No - Advance Directive Resuscitation Status: Full Code Family History Family History: COPD, Hypertension Parental Family History Reviewed: Yes Children Family History Reviewed: Yes Sibling(s) Family History Reviewed.: Yes Medication/Allergy Allergies/Adverse Reactions: bee pollen [Bee Pollen] Allergy (Unknown, Verified 01/15/18 08:05) moxifloxacin [From Avelox] Allergy (Verified 08/13/19 23:24) propoxyphene [From Darvocet-N] Allergy (Verified 01/15/18 08:05) venom-wasp [Wasp Venom] Allergy (Verified 01/15/18 08:05) Review of Systems ROS unobtainable: Due to endotracheal tube, Due to mental status Physical Exam Vital Signs: Temp Pulse Resp BP Pulse Ox 98.6 F 122 H 22 H 97/80 L 96 10/02/19 06:14 10/02/19 06:21 10/02/19 06:14 10/02/19 06:14 10/02/19 06:14 Intake & Output 10/01/19 10/02/19 10/03/19 06:59 06:59 06:59 Intake Total 1361 Output Total 350 Balance 1011 Weight 37.4 kg General appearance: PRESENT: no acute distress Head exam: PRESENT: atraumatic Mouth exam: PRESENT: dry mucosa Respiratory exam: PRESENT: other - Ventilated Cardiovascular exam: PRESENT: tachycardia GI/Abdominal exam: PRESENT: soft Rectal exam: PRESENT: deferred Neurological exam: PRESENT: other - Intubated sedated Results Laboratory Results: 10/02/19 04:15 10/02/19 04:15 10/01/19 10/01/19 10/01/19 13:00 13:00 13:00 WBC 13.5 H RBC 3.22 L Hgb 9.4 L Hct 31.2 L MCV 97 D MCH 29.1 MCHC 30.1 L RDW 22.0 H Plt Count 178 Seg Neutrophils % Not Reportable Carbonic Acid HCO3/H2CO3 Ratio ABG pH ABG pCO2 ABG pO2 ABG HCO3 ABG O2 Saturation ABG Base Excess FiO2 Sodium 148.3 H Potassium 3.9 Chloride 107 Carbon Dioxide 29 Anion Gap 12 BUN 54 H Creatinine 1.51 H Est GFR ( Amer) 41 L Glucose 104 Lactic Acid 0.8 Calcium 9.6 Magnesium Total Bilirubin 0.3 AST 26 Alkaline Phosphatase 69 Total Protein 6.3 Albumin 2.9 L Urine Color Urine Appearance Urine pH Ur Specific [place] Urine Protein Urine Glucose (UA) Urine Ketones Urine Blood Urine RBC (Auto) 10/01/19 10/01/19 10/01/19 13:00 13:00 13:25 WBC RBC Hgb Hct MCV MCH MCHC RDW Plt Count Seg Neutrophils % Carbonic Acid 2.08 H HCO3/H2CO3 Ratio 13:1 ABG pH 7.21 L ABG pCO2 69.1 H* ABG pO2 406.0 H ABG HCO3 27.1 H ABG O2 Saturation 99.7 H ABG Base Excess -2.4 FiO2 100% Sodium Potassium Chloride Carbon Dioxide Anion Gap BUN Creatinine Est GFR ( Amer) Glucose Lactic Acid Calcium Magnesium 2.0 Total Bilirubin AST Alkaline Phosphatase Total Protein Albumin Urine Color YELLOW Urine Appearance CLOUDY Urine pH 5.0 Ur Specific [place] 1.024 Urine Protein 100 H Urine Glucose (UA) NEGATIVE Urine Ketones NEGATIVE Urine Blood NEGATIVE Urine RBC (Auto) 2 10/01/19 10/02/19 10/02/19 21:00 04:15 04:15 WBC 19.2 H RBC 3.31 L Hgb 9.7 L Hct 32.0 L MCV 97 MCH 29.4 MCHC 30.3 L RDW 21.6 H Plt Count 166 Seg Neutrophils % Carbonic Acid 1.99 H HCO3/H2CO3 Ratio 12:1 ABG pH 7.21 L ABG pCO2 66.0 H ABG pO2 95.1 ABG HCO3 25.6 H ABG O2 Saturation 95.5 ABG Base Excess -3.1 FiO2 60% Sodium 140.3 Potassium 4.8 Chloride 106 Carbon Dioxide 24 Anion Gap 10 BUN 43 H Creatinine 0.91 Est GFR ( Amer) > 60 Glucose 183 H Lactic Acid Calcium 9.0 Magnesium Total Bilirubin 0.4 AST 51 H Alkaline Phosphatase 105 Total Protein 6.1 L Albumin 2.8 L Urine Color Urine Appearance Urine pH Ur Specific [place] Urine Protein Urine Glucose (UA) Urine Ketones Urine Blood Urine RBC (Auto) 10/01/19 13:00 Troponin I 0.049 NT-Pro-B Natriuret Pep 06809 H Status: Image reviewed by me Assessment & Plan - Diagnosis (1) Carcinoma of right breast upper inner quadrant Qualifiers: Estrogen receptor status: positive Patient sex: female Qualified Code(s): C50.211 - Malignant neoplasm of upper-inner quadrant of right female breast; Z17.0 - Estrogen receptor positive status [ER+] Is this a current diagnosis for this admission?: Yes Plan: Stage IV breast cancer, primarily lymph node metastasis. If patient is able to receive it via endotracheal tube, it would be reasonable to give Arimidex 1 mg daily. I will further discuss CODE STATUS with family and see how they do with that. But currently patient is full code. (2) Anemia Qualifiers: Anemia type: unspecified type Qualified Code(s): D64.9 - Anemia, unspecified Is this a current diagnosis for this admission?: Yes Plan: Iron studies pending probably element of anemia of chronic disease - Time Time Spent: Greater than 70 Minutes - Inpatient Certification Based on my medical assessment, after consideration of the patient's comorbidities, presenting symptoms, or acuity I expect that the services needed warrant INPATIENT care.: Yes I certify that my determination is in accordance with my understanding of Medicare's requirements for reasonable and necessary INPATIENT services [42 CFR 412.3e].: Yes Medical Necessity: Need For Continuous Telemetry Monitoring, Need for Nebulizer Therapy and Monitoring of Response, Risk of Complication if Not Cared For in Hospital
[2019-10-02] MEDS ORDERED: ACETAMINOPHEN SOLN 325 MG/10.15 ML UDCUP NG PRN (08:07)
[2019-10-02 08:11] LABS: ABSOLUTE RETICS # 0.033 10^6/uL (0.028-0.122); RETICULOCYTE COUNT (AUTO) 0.98 % (0.66-2.85)
[2019-10-02 08:18] LABS: IRON(TIBC) 30.1 ug/dL (37-170)
--- NOTE | 2019-10-02 08:24 | RADIOLOGY REPORT (SQ) ---
EXAM DESCRIPTION: CHEST SINGLE VIEW COMPLETED DATE/TIME: 10/02/2019 6:08 am REASON FOR STUDY: respiratory failure COMPARISON: 08/01/2019 EXAM PARAMETERS: NUMBER OF VIEWS: One view. TECHNIQUE: Single frontal radiographic view of the chest acquired. RADIATION DOSE: NA LIMITATIONS: None. FINDINGS: LUNGS AND PLEURA: Increased patchy airspace disease within the right mid lung and left elvis g base. Small bilateral pleural effusions, stable. Emphysematous change with hyperinflation. No pn eumothorax. MEDIASTINUM AND HILAR STRUCTURES: Stable. HEART AND VASCULAR STRUCTURES: Stable. Aortic atherosclerosis. BONES: No acute findings. HARDWARE: Endotracheal tube tip overlies midthoracic trachea. Left approach PICC tip terminates at c avoatrial junction. Enteric tube tip overlies proximal gastric body with side port at GE junction. OTHER: No other significant finding. IMPRESSION: Mildly increased patchy airspace disease within the right mid lung and left lung base. Stable small bilateral effusions. Enteric tube side port at GE junction. Consider advancing 5 cm. TECHNICAL DOCUMENTATION: JOB ID: [id number] [employer]- All Rights Reserved Reading location - IP/workstation name: [email or web address]
[2019-10-02] MEDS ORDERED: DEXTROSE 40% GEL 15 GM TUBE NG PRN ×2 (08:30)
[2019-10-02] MEDS: DEXTROSE 5%-WATER 250 ML with PHENYLEPHRINE HCL 40 MG IV PRN ×8 (09:00→21:56)
[2019-10-02 09:46] LABS: FOLATE > 20.00 ng/mL (>2.76)
[2019-10-02] MEDS ORDERED: ENOXAPARIN SODIUM INJ 30 MG/0.3 ML DISP.SYRIN SUBCUT SCH (10:00)
[2019-10-02] MEDS: RINGERS SOLUTION,LACTATED 1,000 ML IV PRN (10:08)
[2019-10-02] MEDS: NORMAL SALINE INJ/PF 0.9% 10 ML SDV IV SCH ×2 (10:10→21:55)
[2019-10-02] MEDS: APIXABAN 2.5 MG TABLET NG SCH ×2 (10:13→21:54)
[2019-10-02] MEDS: FAMOTIDINE 20 MG TABLET NG SCH (10:13)
[2019-10-02] MEDS: MIDAZOLAM HCL 50 MG/100 ML RTUINJ IV PRN ×2 (10:29→22:52)
--- NOTE | 2019-10-02 12:50 | PDOC CRITICAL CARE PROG REPORT ---
General Date:: 10/02/19 - Critical Care Attending Note Resuscitation Status: Full Code Events in the past 12 to 24 Hours:: Pt went into afib with RVR last night. Also was started on neosynephrine. Remains intubated. Reason for ICU Addmission:: acute respiratory failure, metastatic cancer - Medications: Medications reviewed and adjusted accordingly: Yes Vasopressors:: neosynephrine Physical Exam Vital Signs: Temp Pulse Resp BP Pulse Ox 99.1 F 118 H 25 H 84/75 L 96 10/02/19 08:00 10/02/19 10:00 10/02/19 10:00 10/02/19 10:00 10/02/19 10:00 Intake & Output 10/01/19 10/02/19 10/03/19 06:59 06:59 06:59 Intake Total 2611 56 Output Total 350 50 Balance 2261 6 Weight 37.4 kg Weight/Height Weight 37.4 kg Height 5 ft 2 in General appearance: PRESENT: thin, other - intubated, frail, elderly cachectic Head exam: PRESENT: atraumatic, normocephalic Respiratory exam: PRESENT: rhonchi Cardiovascular exam: PRESENT: irregular rhythm, tachycardia GI/Abdominal exam: PRESENT: soft Extremities exam: PRESENT: other - no edema Laboratory/Radiographs Laboratory Results: 10/02/19 04:15 10/02/19 04:15 10/01/19 10/01/19 10/01/19 13:00 13:00 13:00 WBC 13.5 H RBC 3.22 L Hgb 9.4 L Hct 31.2 L MCV 97 D MCH 29.1 MCHC 30.1 L RDW 22.0 H Plt Count 178 Seg Neutrophils % Not Reportable Retic Count (auto) Carbonic Acid HCO3/H2CO3 Ratio ABG pH ABG pCO2 ABG pO2 ABG HCO3 ABG O2 Saturation ABG Base Excess FiO2 Sodium 148.3 H Potassium 3.9 Chloride 107 Carbon Dioxide 29 Anion Gap 12 BUN 54 H Creatinine 1.51 H Est GFR ( Amer) 41 L Glucose 104 Lactic Acid 0.8 Calcium 9.6 Magnesium Iron TIBC % Saturation Ferritin Total Bilirubin 0.3 AST 26 Alkaline Phosphatase 69 Total Protein 6.3 Albumin 2.9 L Vitamin B12 Folate Urine Color Urine Appearance Urine pH Ur Specific [place] Urine Protein Urine Glucose (UA) Urine Ketones Urine Blood Urine RBC (Auto) 10/01/19 10/01/19 10/01/19 13:00 13:00 13:25 WBC RBC Hgb Hct MCV MCH MCHC RDW Plt Count Seg Neutrophils % Retic Count (auto) Carbonic Acid 2.08 H HCO3/H2CO3 Ratio 13:1 ABG pH 7.21 L ABG pCO2 69.1 H* ABG pO2 406.0 H ABG HCO3 27.1 H ABG O2 Saturation 99.7 H ABG Base Excess -2.4 FiO2 100% Sodium Potassium Chloride Carbon Dioxide Anion Gap BUN Creatinine Est GFR ( Amer) Glucose Lactic Acid Calcium Magnesium 2.0 Iron TIBC % Saturation Ferritin Total Bilirubin AST Alkaline Phosphatase Total Protein Albumin Vitamin B12 Folate Urine Color YELLOW Urine Appearance CLOUDY Urine pH 5.0 Ur Specific [place] 1.024 Urine Protein 100 H Urine Glucose (UA) NEGATIVE Urine Ketones NEGATIVE Urine Blood NEGATIVE Urine RBC (Auto) 2 10/01/19 10/02/19 10/02/19 21:00 04:15 04:15 WBC 19.2 H RBC 3.31 L Hgb 9.7 L Hct 32.0 L MCV 97 MCH 29.4 MCHC 30.3 L RDW 21.6 H Plt Count 166 Seg Neutrophils % Retic Count (auto) Carbonic Acid 1.99 H HCO3/H2CO3 Ratio 12:1 ABG pH 7.21 L ABG pCO2 66.0 H ABG pO2 95.1 ABG HCO3 25.6 H ABG O2 Saturation 95.5 ABG Base Excess -3.1 FiO2 60% Sodium 140.3 Potassium 4.8 Chloride 106 Carbon Dioxide 24 Anion Gap 10 BUN 43 H Creatinine 0.91 Est GFR ( Amer) > 60 Glucose 183 H Lactic Acid Calcium 9.0 Magnesium Iron TIBC % Saturation Ferritin Total Bilirubin 0.4 AST 51 H Alkaline Phosphatase 105 Total Protein 6.1 L Albumin 2.8 L Vitamin B12 Folate Urine Color Urine Appearance Urine pH Ur Specific [place] Urine Protein Urine Glucose (UA) Urine Ketones Urine Blood Urine RBC (Auto) 10/02/19 10/02/19 04:15 04:15 WBC RBC Hgb Hct MCV MCH MCHC RDW Plt Count Seg Neutrophils % Retic Count (auto) 0.98 Carbonic Acid HCO3/H2CO3 Ratio ABG pH ABG pCO2 ABG pO2 ABG HCO3 ABG O2 Saturation ABG Base Excess FiO2 Sodium Potassium Chloride Carbon Dioxide Anion Gap BUN Creatinine Est GFR ( Amer) Glucose Lactic Acid Calcium Magnesium Iron 30.1 L TIBC 164 L % Saturation 18 Ferritin 2690.00 H Total Bilirubin AST Alkaline Phosphatase Total Protein Albumin Vitamin B12 779.0 Folate > 20.00 Urine Color Urine Appearance Urine pH Ur Specific [place] Urine Protein Urine Glucose (UA) Urine Ketones Urine Blood Urine RBC (Auto) 10/01/19 13:00 Troponin I 0.049 NT-Pro-B Natriuret Pep 36909 H Impressions: Chest X-Ray 10/02/19 06:00 IMPRESSION: Mildly increased patchy airspace disease within the right mid lung and left lung base. Stable small bilateral effusions. Enteric tube side port at GE junction. Consider advancing 5 cm. All labs, radiographs, diagnostic studies and EKGs were personally reviewed: Yes Assessment and Plan - Diagnosis (1) Acute and chronic respiratory failure ([id number]) Qualifiers: Respiratory failure complication: hypercapnia Qualified Code(s): J96.22 - Acute and chronic respiratory failure with hypercapnia Is this a current diagnosis for this admission?: Yes (2) COPD (chronic obstructive pulmonary disease) Qualifiers: COPD type: unspecified COPD Qualified Code(s): J44.9 - Chronic obstructive pulmonary disease, unspecified Is this a current diagnosis for this admission?: Yes (3) KIAN (acute kidney injury) Is this a current diagnosis for this admission?: Yes (4) Atrial fibrillation Qualifiers: Atrial fibrillation type: longstanding persistent Qualified Code(s): I48.11 - Longstanding persistent atrial fibrillation Is this a current diagnosis for this admission?: Yes (5) Multifocal pneumonia Is this a current diagnosis for this admission?: Yes (6) Sepsis Qualifiers: Sepsis type: sepsis due to unspecified organism Qualified Code(s): A41.9 - Sepsis, unspecified organism; R65.20 - Severe sepsis without septic shock Is this a current diagnosis for this admission?: Yes (7) Protein-calorie malnutrition, severe Is this a current diagnosis for this admission?: Yes (8) Stage IV carcinoma of breast Qualifiers: Laterality: unspecified laterality Qualified Code(s): C50.919 - Malignant neoplasm of unspecified site of unspecified female breast Is this a current diagnosis for this admission?: Yes Plan Summary: Assessment: Critically ill 74 yo woman with acute on chronic respiratory failure, Stage IV metastatic breast cancer, HCAP, septic shock, COPD, KIAN, afib with RVR, VTE disease, severe protein-calorie malnutrition Plan: 1. Respiratory: acute on chronic respiratory failure. Vent day 2. 2. Pulmonary: HCAP. COPD. Day 2 Vanc and cefepime. Duonebs and steroids 3. CV:afib with RVR. hypotension due to septic shock. Continue amiodarone infusion. Continue neosynephrine. Continue IVF. 4. Renal: KIAN. IVF. Renally dose meds 5. Onc: stage IV metastatic breast cancer. Dr. Logan following 6. Heme: afib, VTE. Continue eliquis. 7. Nutrition: severe protein calorie malnutrition. Will consult nutrition 8. ID: sepsis, HCAP. Day Vanc and cefepime. Cultures pending. 9. Endocrine: accuchecks, SSI 10.Prophylaxis: scds. No pharmacologic DVT prophylaxis needed b/c pt on eliquis 11. Ethics: terminal prognosis. Family wants pt to be full code. Critical care time = 40 min, excluding procedures Critical Time Critical Time (minutes): 40 Level of Care: ICU -: 1. The care of a critical patient is a dynamic process. This note is a printing sales representative synopsis but static in nature. The timeframe for treatments given in order is not necessarily the actual time these treatments may have been done. 2. This patient requires critical care secondary to ongoing requirements for therapy not offered or safe outside the critical care environment. Transfer to a lower level of care will result in altered life or limb morbidity and mortality. 3. Multidisciplinary rounds completed. 4. ABCDE bundle addressed.
[2019-10-02 13:39] LABS: ARTERIAL BLOOD BASE EXCESS -10.2 mmol/L; ARTERIAL BLOOD H2CO3 1.77 mmol/L (1.05-1.35); ARTERIAL BLOOD O2 SATURATION 85.5 % (94-98); ARTERIAL BLOOD PCO2 58.9 mmHg (35-45); ARTERIAL BLOOD PO2 65.7 mmHg (80-100); ARTERIAL BLOOD TOTAL CO2 20.8 mmol/L (21-25)
[2019-10-02 13:40] LABS: ARTERIAL BLOOD FIO2 40%
[2019-10-02 13:42] LABS: ARTERIAL BLOOD PH 7.13 (7.35-7.45)
--- NOTE | 2019-10-02 17:08 | Progress Note ---
Provider Note Provider Note: Spoke with the family, her sisters and her niece. Told them that pt's prognosis is terminal and that she is going to . She has stage IV breast cancer, septic shock, and, MSOF. This came as a surprise to the family and one of her sisters became hysterical and refused to believe the bad news. I told them to call the rest of their family in so that they can make a decision regarding code status and goals of care.
[2019-10-02] MEDS: CEFEPIME 1 GM/D5W RTU 1 GM/50 ML RTUPB IV SCH (17:44)
[2019-10-02] MEDS: DEXTROSE 5%-WATER 500 ML with AMIODARONE HCL 900 MG IV PRN ×2 (19:25)
--- NOTE | 2019-10-02 22:14 | Progress Note ---
<IRIS SANCHEZ - Last Filed: 10/02/19 22:06> Provider Note Provider Note: Pt remains hypotensive with cuff pressures ~70 systolic and Sukhdeep running at max does of 180 and IV fluids running at 125ml/hr. Noted lab results, specifically ABG from this afternoon. Discussed with attending. No further orders at this time. <MAGGIE VUONG - Last Filed: 10/03/19 07:34> Provider Note Provider Note: SEVERO Sanchez contacted me last night asking about repeating an ABG. She did not notify me that the pt was hypotensive despite being on neosyneprhine.
[2019-10-03] MEDS: IPRATROPIUM/ALBUTEROL 0.5-2.5 MG/3 ML AMPUL NEB SCH ×6 (00:46→20:45)
[2019-10-03] MEDS: DEXTROSE 5%-WATER 250 ML with PHENYLEPHRINE HCL 40 MG IV PRN ×10 (01:31→23:21)
[2019-10-03] MEDS: METHYLPREDNISOLONE INJ 125 MG/2 ML SDV IV SCH ×4 (04:59→23:32)
[2019-10-03] MEDS: INSULIN REG, HUMAN 100 UNIT/ML 3 ML VIAL (PYX) SUBCUT SCH ×4 (05:01→23:32)
[2019-10-03 06:51] LABS: HEMATOCRIT 31.8 % (36.0-47.0); HEMOGLOBIN 9.5 g/dL (12.0-15.5); MEAN CORPUSCULAR HEMOGLOBIN 29.3 pg (27.0-33.4); MEAN CORPUSCULAR HGB CONC 29.9 g/dL (32.0-36.0); MEAN CORPUSCULAR VOLUME 98 fl (80-97); PLATELET COUNT 108 10^3/uL (150-450); RED BLOOD COUNT 3.24 10^6/uL (3.72-5.28); RED CELL DISTRIBUTION WIDTH 21.4 % (11.5-14.0); WHITE BLOOD COUNT 24.1 10^3/uL (4.0-10.5)
[2019-10-03 07:31] LABS: ANISOCYTOSIS 3+; BAND NEUTROPHILS % (MANUAL) 3 % (3-5); BASOPHILS % (MANUAL) 0 % (0-2); BURR CELLS 1+; EOSINOPHILS % (MANUAL) 0 % (0-6); LYMPHOCYTES % (MANUAL) 0 % (13-45); MONOCYTES % (MANUAL) 0 % (3-13); OVALOCYTES 1+; PLATELET COMMENT DECREASED; POIKILOCYTOSIS 1+; SEGMENTED NEUTROPHILS % (MAN) 97 % (42-78); TEAR DROP CELLS SLIGHT; TOTAL CELLS COUNTED 100; TOXIC VACUOLATION PRESENT
[2019-10-03 07:38] LABS: ANION GAP 11 (5-19); BLOOD UREA NITROGEN 39 mg/dL (7-20); CALCIUM 8.6 mg/dL (8.4-10.2); CARBON DIOXIDE 22 mmol/L (22-30); CHLORIDE 97 mmol/L (98-107); GLUCOSE 163 mg/dL (75-110); POTASSIUM 5.1 mmol/L (3.6-5.0)
[2019-10-03] MEDS ORDERED: RINGERS SOLUTION,LACTATED 1,000 ML IV ONE ×2 (08:04→08:06)
[2019-10-03] MEDS ORDERED: NOREPINEPHRINE BITARTRATE INJ/PF 4 MG/4 ML SDV IV ONE (08:37)
[2019-10-03] MEDS: DEXTROSE 5%-WATER 250 ML with NOREPINEPHRINE BITARTRATE 4 MG IV PRN ×6 (08:52→21:34)
--- NOTE | 2019-10-03 08:59 | RADIOLOGY REPORT (SQ) ---
EXAM DESCRIPTION: CHEST SINGLE VIEW COMPLETED DATE/TIME: 10/03/2019 5:53 am REASON FOR STUDY: resp failure COMPARISON: AP view of the chest from 10/02/2019 and PET from 09/23/2019. EXAM PARAMETERS: NUMBER OF VIEWS: One view. TECHNIQUE: An AP view of the chest was obtained. RADIATION DOSE: NA LIMITATIONS: None. FINDINGS: LUNGS AND PLEURA: The costophrenic sulci remain blunted. The multifocal patchy opacities in the right mid lung and left base are unchanged. The fullness in the apices is also unchanged and could represent in part the enlarged hypermetabolic lymph nodes described on the correlative PET. Th ere is no pneumothorax. MEDIASTINUM AND HILAR STRUCTURES: Stable mediastinal and hilar contours. HEART AND VASCULAR STRUCTURES: Stable cardiac silhouette. BONES: No acute findings. HARDWARE: There surgical clips that project over the mid right hemithorax. The tip of the endotrache al tube projects 5.8 cm above the samara. The side hole of the enteric tube projects at the level of the gastroesophageal junction. The tip of the left upper extremity PICC projects at the level of th e cavoatrial junction. OTHER: No other finding. IMPRESSION: The side-hole of the enteric tube projects at the level of the gastroesophageal junction and should be advanced forward. Otherwise unchanged radiographic appearance of the chest. TECHNICAL DOCUMENTATION: JOB ID: [id number] [employer]- All Rights Reserved Reading location - IP/workstation name: [email or web address]
--- NOTE | 2019-10-03 09:06 | PDOC PROGRESS REPORT ---
Subjective Progress Note for:: 10/03/19 Subjective:: Patient seems to be worsening overnight, critical care team had a long conversation with family. This morning, I had a long discussion with family, spent greater than 45 minutes in discussion. Discussed current status of her disease and status of her care, recommended comfort care and DNR. However family is not ready for this. They will continue to think about it. Reason For Visit: ACUTE RESPIRATORY FAILURE,METASTATIC CANCER Physical Exam Vital Signs: Temp Pulse Resp BP Pulse Ox 100.2 F 102 H 21 H 74/61 L 92 10/03/19 06:14 10/03/19 06:00 10/03/19 06:14 10/03/19 06:14 10/03/19 06:00 Intake & Output 10/02/19 10/03/19 10/04/19 06:59 06:59 06:59 Intake Total 2661 1000 Output Total 350 315 Balance 2311 685 Weight 37.4 kg 40.5 kg General appearance: PRESENT: no acute distress Mouth exam: PRESENT: dry mucosa Respiratory exam: PRESENT: accessory muscle use Cardiovascular exam: PRESENT: tachycardia Vascular exam: PRESENT: pallor GI/Abdominal exam: PRESENT: distended Rectal exam: PRESENT: deferred Neurological exam: PRESENT: other - Intubated sedated Results Laboratory Results: 10/03/19 04:44 10/03/19 07:05 10/02/19 10/02/19 10/03/19 04:15 13:30 04:44 WBC 24.1 H RBC 3.24 L Hgb 9.5 L Hct 31.8 L MCV 98 H MCH 29.3 MCHC 29.9 L RDW 21.4 H Plt Count 108 L Seg Neutrophils % Not Reportable Carbonic Acid 1.77 H HCO3/H2CO3 Ratio 10:1 ABG pH 7.13 L* ABG pCO2 58.9 H ABG pO2 65.7 L ABG HCO3 19.0 L ABG O2 Saturation 85.5 L ABG Base Excess -10.2 FiO2 40% Sodium Potassium Chloride Carbon Dioxide Anion Gap BUN Creatinine Est GFR ( Amer) Glucose Calcium Iron 30.1 L TIBC 164 L % Saturation 18 Ferritin 2690.00 H Vitamin B12 779.0 Folate > 20.00 10/03/19 07:05 WBC RBC Hgb Hct MCV MCH MCHC RDW Plt Count Seg Neutrophils % Carbonic Acid HCO3/H2CO3 Ratio ABG pH ABG pCO2 ABG pO2 ABG HCO3 ABG O2 Saturation ABG Base Excess FiO2 Sodium 130.4 L Potassium 5.1 H Chloride 97 L Carbon Dioxide 22 Anion Gap 11 BUN 39 H Creatinine 1.27 H Est GFR ( Amer) 50 L Glucose 163 H Calcium 8.6 Iron TIBC % Saturation Ferritin Vitamin B12 Folate 10/01/19 13:00 Blood Blood Culture (PCR) - Final Staphylococcus Species 10/01/19 13:00 Troponin I 0.049 NT-Pro-B Natriuret Pep 21071 H Assessment & Plan - Diagnosis (1) Carcinoma of right breast upper inner quadrant Qualifiers: Estrogen receptor status: positive Patient sex: female Qualified Code(s): C50.211 - Malignant neoplasm of upper-inner quadrant of right female breast; Z17.0 - Estrogen receptor positive status [ER+] Is this a current diagnosis for this admission?: Yes Plan: Had a long discussion with family, recommended comfort care, but at present family is not ready. Continue with current critical care per carbon accountant team. Patient continues to be full code. (2) Anemia Qualifiers: Anemia type: unspecified type Qualified Code(s): D64.9 - Anemia, unspecified Is this a current diagnosis for this admission?: Yes Plan: Ferritin is 2000, if hemoglobin falls below 7 would be reasonable to transfuse. No other intervention possible. - Time Time Spent with patient: 35 or more minutes
[2019-10-03] MEDS: FAMOTIDINE 20 MG TABLET NG SCH (09:10)
[2019-10-03] MEDS: NORMAL SALINE INJ/PF 0.9% 10 ML SDV IV SCH ×2 (09:11→21:08)
[2019-10-03] MEDS: MEROPENEM 1 GM in NORMAL SALINE 50 ML IV SCH ×2 (09:11→21:08)
[2019-10-03] MEDS: APIXABAN 2.5 MG TABLET NG SCH ×2 (09:11→21:17)
[2019-10-03 09:32] LABS: ARTERIAL BLOOD BASE EXCESS -10.6 mmol/L; ARTERIAL BLOOD H2CO3 2.25 mmol/L (1.05-1.35); ARTERIAL BLOOD HCO3 20.1 mmol/L (20-24); ARTERIAL BLOOD O2 SATURATION 92.8 % (94-98); ARTERIAL BLOOD PO2 92.9 mmHg (80-100); ARTERIAL BLOOD TOTAL CO2 22.4 mmol/L (21-25)
[2019-10-03 09:36] LABS: ARTERIAL BLOOD FIO2 50%
[2019-10-03 09:48] LABS: ARTERIAL BLOOD PCO2 74.7 mmHg (35-45); ARTERIAL BLOOD PH 7.05 (7.35-7.45)
[2019-10-03] MEDS ORDERED: VANCOMYCIN HCL 1,000 MG in DEXTROSE 5%-WATER 250 ML IV SCH (10:00)
[2019-10-03] MEDS ORDERED: LACTULOSE SYRUP 20 GM/30 ML UDCUP PO SCH (11:00)
--- NOTE | 2019-10-03 11:07 | PDOC CRITICAL CARE PROG REPORT ---
General Date:: 10/03/19 - Critical Care Attending Note Resuscitation Status: Full Code Events in the past 12 to 24 Hours:: Pt remains intubated and sedated. She was hypotensive and hypoxic this am. Reason for ICU Addmission:: acute respiratory failure, metastatic cancer - Medications: Medications reviewed and adjusted accordingly: Yes Physical Exam Vital Signs: Temp Pulse Resp BP Pulse Ox 99.9 F 110 H 20 98/75 L 97 10/03/19 08:00 10/03/19 10:00 10/03/19 10:00 10/03/19 10:00 10/03/19 10:00 Intake & Output 10/02/19 10/03/19 10/04/19 06:59 06:59 06:59 Intake Total 2661 1000 1007 Output Total 350 315 35 Balance 2311 685 972 Weight 37.4 kg 40.5 kg Weight/Height Weight 40.5 kg Height 5 ft 2 in General appearance: PRESENT: no acute distress, thin, other - intubated, frail, elderly, cachectic Head exam: PRESENT: atraumatic, normocephalic Respiratory exam: PRESENT: rhonchi, unlabored Cardiovascular exam: PRESENT: irregular rhythm, tachycardia GI/Abdominal exam: PRESENT: other - slightly distended. No rebound, no guarding Gentrourinary exam: PRESENT: indwelling catheter Extremities exam: PRESENT: other - no edema Laboratory/Radiographs Laboratory Results: 10/03/19 04:44 10/03/19 07:05 10/02/19 10/03/19 10/03/19 13:30 04:44 07:05 WBC 24.1 H RBC 3.24 L Hgb 9.5 L Hct 31.8 L MCV 98 H MCH 29.3 MCHC 29.9 L RDW 21.4 H Plt Count 108 L Seg Neutrophils % Not Reportable Carbonic Acid 1.77 H HCO3/H2CO3 Ratio 10:1 ABG pH 7.13 L* ABG pCO2 58.9 H ABG pO2 65.7 L ABG HCO3 19.0 L ABG O2 Saturation 85.5 L ABG Base Excess -10.2 FiO2 40% Sodium 130.4 L Potassium 5.1 H Chloride 97 L Carbon Dioxide 22 Anion Gap 11 BUN 39 H Creatinine 1.27 H Est GFR ( Amer) 50 L Glucose 163 H Calcium 8.6 10/03/19 10/03/19 08:55 09:20 WBC RBC Hgb Hct MCV MCH MCHC RDW Plt Count Seg Neutrophils % Carbonic Acid Cancelled 2.25 H HCO3/H2CO3 Ratio Cancelled 8:1 ABG pH Cancelled 7.05 L* ABG pCO2 Cancelled 74.7 H* ABG pO2 Cancelled 92.9 ABG HCO3 Cancelled 20.1 ABG O2 Saturation Cancelled 92.8 L ABG Base Excess Cancelled -10.6 FiO2 Cancelled 50% Sodium Potassium Chloride Carbon Dioxide Anion Gap BUN Creatinine Est GFR ( Amer) Glucose Calcium 10/01/19 13:00 Blood Blood Culture (PCR) - Final Staphylococcus Species 10/01/19 13:00 Troponin I 0.049 NT-Pro-B Natriuret Pep 64297 H Impressions: Chest X-Ray 10/03/19 06:00 IMPRESSION: The side-hole of the enteric tube projects at the level of the gastroesophageal junction and should be advanced forward. Otherwise unchanged radiographic appearance of the chest. Assessment and Plan - Diagnosis (1) Acute and chronic respiratory failure ([id number]) Qualifiers: Respiratory failure complication: hypercapnia Qualified Code(s): J96.22 - Acute and chronic respiratory failure with hypercapnia Is this a current diagnosis for this admission?: Yes (2) COPD (chronic obstructive pulmonary disease) Qualifiers: COPD type: unspecified COPD Qualified Code(s): J44.9 - Chronic obstructive pulmonary disease, unspecified Is this a current diagnosis for this admission?: Yes (3) KIAN (acute kidney injury) Is this a current diagnosis for this admission?: Yes (4) Atrial fibrillation Qualifiers: Atrial fibrillation type: longstanding persistent Qualified Code(s): I48.11 - Longstanding persistent atrial fibrillation Is this a current diagnosis for this admission?: Yes (5) Multifocal pneumonia Is this a current diagnosis for this admission?: Yes (6) Sepsis Qualifiers: Sepsis type: sepsis due to unspecified organism Qualified Code(s): A41.9 - Sepsis, unspecified organism; R65.20 - Severe sepsis without septic shock Is this a current diagnosis for this admission?: Yes (7) Protein-calorie malnutrition, severe Is this a current diagnosis for this admission?: Yes (8) Stage IV carcinoma of breast Qualifiers: Laterality: unspecified laterality Qualified Code(s): C50.919 - Malignant neoplasm of unspecified site of unspecified female breast Is this a current diagnosis for this admission?: Yes Plan Summary: Assessment: Critically ill 74 yo woman with acute on chronic respiratory failure, Stage IV metastatic breast cancer, HCAP, septic shock, COPD, KIAN, afib with RVR, VTE disease, severe protein-calorie malnutrition Plan: 1. Respiratory: acute on chronic respiratory failure. Vent day 3. Vent setting adjusted. Will repeat ABG. Pt will have hypercapnea due to the fact that her lungs are extremely non-compliant. 2. Pulmonary: HCAP. COPD. Day 3 Vanc and cefepime. WBC increasing. Will d/c cefepime and start meropenem. Duonebs and steroids 3. CV:afib with RVR. hypotension due to septic shock. Continue amiodarone infusion. Continue neosynephrine, add levophed. Continue IVF. 4. Renal: KIAN. Cr increasing. Continue IVF. Renally dose meds 5. Onc: stage IV metastatic breast cancer. D/W Dr. Logan today 6. Heme: afib, VTE. Continue eliquis. 7. Nutrition: severe protein calorie malnutrition. BMI is 16. Nutrition consulted. Will start tube feeds. Will start lactulose for constipation 8. ID: septic shock, HCAP. Day 3 Vanc and cefepime. Bacteremia with staph. Worsening leukocytosis. WBC has increased to 24.1.Will d/c cefepime and start meropenem. Will repeat cultures 9. Endocrine: accuchecks, SSI 10.Prophylaxis: scds. No pharmacologic DVT prophylaxis needed b/c pt on eliquis 11. Ethics: terminal prognosis. Family wants pt to be full code. Critical care time = 40 min, excluding procedures Critical Time Critical Time (minutes): 40 Level of Care: ICU -: 1. The care of a critical patient is a dynamic process. This note is a petroleum products sales representative synopsis but static in nature. The timeframe for treatments given in order is not necessarily the actual time these treatments may have been done. 2. This patient requires critical care secondary to ongoing requirements for therapy not offered or safe outside the critical care environment. Transfer to a lower level of care will result in altered life or limb morbidity and mortality. 3. Multidisciplinary rounds completed. 4. ABCDE bundle addressed.
[2019-10-03] MEDS: MIDAZOLAM HCL 50 MG/100 ML RTUINJ IV PRN (12:41)
[2019-10-03] MEDS: RINGERS SOLUTION,LACTATED 1,000 ML IV PRN (12:44)
[2019-10-03 12:53] LABS: ARTERIAL BLOOD H2CO3 2.15 mmol/L (1.05-1.35); ARTERIAL BLOOD HCO3 18.1 mmol/L (20-24); ARTERIAL BLOOD PO2 74.2 mmHg (80-100); ARTERIAL BLOOD TOTAL CO2 20.3 mmol/L (21-25)
[2019-10-03 12:54] LABS: ARTERIAL BLOOD FIO2 50%; ARTERIAL BLOOD PCO2 71.5 mmHg (35-45); ARTERIAL BLOOD PH 7.02 (7.35-7.45)
[2019-10-03] MEDS ORDERED: EPINEPHRINE INJ 1 MG/10 ML DISP.SYRIN ONE (15:25)
[2019-10-03] MEDS ORDERED: EPINEPHRINE INJ/PF 1 MG/1 ML AMPULE ONE ×2 (15:25→15:27)
[2019-10-03] MEDS: DEXTROSE 5%-WATER 250 ML with EPINEPHRINE/PF 1 MG IV PRN ×10 (16:09→22:53)
--- NOTE | 2019-10-03 16:45 | Progress Note ---
Provider Note Provider Note: Pt has continued to deteriorated. She is now on maximal doses of three pressors. She is requiring ventilatory support with pressure control ventilation. Spoke with the pt's children and they have decided to make her DNR and to allow natural .
[2019-10-03] MEDS: DEXTROSE 5%-WATER 500 ML with AMIODARONE HCL 900 MG IV PRN ×2 (19:00)
[2019-10-04] MEDS: DEXTROSE 5%-WATER 250 ML with EPINEPHRINE/PF 1 MG IV PRN ×2 (00:46)
[2019-10-04] MEDS: IPRATROPIUM/ALBUTEROL 0.5-2.5 MG/3 ML AMPUL NEB SCH (01:44)
--- NOTE | 2019-10-04 02:28 | Progress Note ---
Provider Note Provider Note: Lengthy conversation at bedside, in hallway and in waiting room with multiple family members including oldest daughter (NATALEE) regarding comfort measures. Daughter and family present agree that they would like to proceed to comfort measures at this time. All questions answered. Christina SIFUENTES present for much of the conversations. Awaiting Dr. Renee to review chart to co-sign for comfort measures to proceed.
--- NOTE | 2019-10-04 02:50 | Death Summary ---
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 Martins was brought in from senior care to the ED after she was noted to be more lethargic and SOB. She was intubated and sedated and admitted to the ICU. She was initated on abx for treatment of HCAP, Oncology was consulted for metastatic CA with unknown primary site and nutrition consulted for severe protein calorie malnutrition. Ongoing conversations between multiple providers and large family group regarding goals of care occurred over the duration of patient stay. Pt progressed to requiring multiple IV pressors at max dose during admission with little improvement. Blood pressure and heart rate continued to trend down despite full dose IV pressors. Daughter (next of kin) with the support of much of the family decided to proceed to DNR then later to comfort measures. Pt was extubated and IV pressors stopped with family at bedside. Time of was 013.
--- NOTE | 2019-10-04 02:50 | Progress Note ---
Provider Note Provider Note: This PILOT CAPTAIN called to patient's bedside to assess that Mrs. Martnis has . No spontaneous movements were present. There was no response to verbal or tactile stimuli. Pupils were fixed and mid-dilated. No breath sounds were appreciated over the entire lung field and no noted respiratory effort. No carotid pulses were palpated or ascultated. No heart sounds were ascultated over the entire precordium. Mrs. Martins was pronounced at 0132 on 10/04/2019. Family was present at bedside during assessment. Dr. Wilkerson was notified at 0135. Pt was made comfort measures by family prior to passing. Christina RN was at bedside to witness.
[2019-10-04 05:30] VITALS: BP 84/55
== END 2019-10-04 05:14 | DRG 208 ==
LOC: ER 12:52 → EH 16:49 → ICU 18:04
PROVIDERS: ADMIT Internal Medicine; ATTEND Internal Medicine
PROC: 5A1945Z Respiratory Ventilation, 24-96 Consecutive Hours (ICD-10-PCS; principal; 2019-10-01)
DX: J18.9 Pneumonia, unspecified organism (principal); J96.22 Acute and chronic respiratory failure with hypercapnia; E43 Unspecified severe protein-calorie malnutrition; N17.9 Acute kidney failure, unspecified; I48.11 Longstanding persistent atrial fibrillation; C77.0 Secondary and unspecified malignant neoplasm of lymph nodes of head, face and neck; Z68.1 Body mass index [BMI] 19.9 or less, adult; C50.211 Malignant neoplasm of upper-inner quadrant of right female breast; J44.9 Chronic obstructive pulmonary disease, unspecified; Z51.5 Encounter for palliative care; Z66 Do not resuscitate; I25.10 Atherosclerotic heart disease of native coronary artery without angina pectoris; E78.5 Hyperlipidemia, unspecified; I11.0 Hypertensive heart disease with heart failure; I50.9 Heart failure, unspecified; D63.8 Anemia in other chronic diseases classified elsewhere; Z88.6 Allergy status to analgesic agent; Z88.3 Allergy status to other anti-infective agents; Z91.030 Bee allergy status; Z90.11 Acquired absence of right breast and nipple; Z79.899 Other long term (current) drug therapy; Z79.01 Long term (current) use of anticoagulants; Z86.718 Personal history of other venous thrombosis and embolism; Z17.0 Estrogen receptor positive status [ER+]; F32.9 Major depressive disorder, single episode, unspecified; M19.90 Unspecified osteoarthritis, unspecified site; Z87.891 Personal history of nicotine dependence; Y95 Nosocomial condition
CPT/HCPCS: 36415; 36600; 51702; 71045; 80048; 80053; 81001; 82607; 82728; 82746; 82803; 82962; 83540; 83550; 83605; 83735; 83880; 84484; 85025; 85027; 85045; 85610; 87040; 87070; 87077; 87150; 87186; 87205; 93005; 93010; 94002; 94003; 94640; 96360; 96361; 99285; 99291; J0171; J0282; J0692; J1642; J1815; J2185; J2250; J2370; J2930; J3370; J3490; J7030; J7060; J7120; J7620